=== PATIENT | male | born 1985 | race Caucasian/White ===

== ENCOUNTER 2018-05-15 14:06 | Outpatient (REF) | payer MEDICAID, SELFPAY ==
[2018-05-15 21:44] LABS: Anion Gap 9.1 mmol/L (3-11); BUN 16 mg/dL (7-18); CO2 26.9 mmol/L (21.0-32.0); Calcium 9.2 mg/dL (8.5-10.1); Chloride 103 mmol/L (98-107); Cholesterol 176 mg/dL (50-200); Glucose 99 mg/dL (70-100); HDL Cholesterol 42 mg/dL (40-60); LDL CHOLESTEROL 121 mg/dL (<100); Potassium 4.5 mmol/L (3.5-5.1); Sodium 139 mmol/L (136-145); Triglyceride 75 mg/dL (30-150)
== END 2018-05-15 14:26 ==
LOC: NCHCN 14:06
PROVIDERS: PCP Specialist/Technologist Athletic Trainer; Visit Provider Specialist/Technologist Athletic Trainer
DX: I10 Essential (primary) hypertension (principal); E66.01 Morbid (severe) obesity due to excess calories; Z00.00 Encounter for general adult medical examination without abnormal findings
CPT/HCPCS: 80048; 80061; 83721

== ENCOUNTER 2018-12-12 14:02 | Outpatient (REF) | payer MEDICAID, SELFPAY | END 2018-12-12 14:22 | LOC: NCHCN 14:02 | PROVIDERS: PCP Specialist/Technologist Athletic Trainer; Visit Provider Specialist/Technologist Athletic Trainer | DX: E66.01 Morbid (severe) obesity due to excess calories (principal) | CPT/HCPCS: 84443 ==

== ENCOUNTER 2020-01-29 10:04 | Outpatient (CLI) | payer MEDICAID, SELFPAY ==
[2020-01-31 08:00] LABS: COVID-19 RT-PCR Result NEGATIVE (Negative)
== END 2020-01-29 10:24 ==
PROVIDERS: PCP Specialist/Technologist Athletic Trainer; Visit Provider Surgery
DX: Z11.59 Encounter for screening for other viral diseases (principal)
CPT/HCPCS: U0003

== ENCOUNTER 2020-04-22 20:56 | Outpatient (REF) | payer MEDICAID, SELFPAY ==
[2020-04-22 21:17] LABS: HCT 40.3 % (40.0-50.0); HGB 13.2 g/dL (13.5-17.5); MCH 27.8 pg (27.0-33.0); MCHC 32.8 % (32.0-36.0); MPV 10.8 fL (8.0-11.0); Platelet Count 186 10^3/uL (130-400); RBC 4.74 10^6/uL (4.36-5.78); RDW 13.6 % (11.8-14.1); RDW-SD 41.6 fL; WBC 8.09 10^3/uL (4.4-10.8)
[2020-04-22 21:52] LABS: Iron 85 ug/dL (65-175)
[2020-04-22 22:02] LABS: Hemoglobin A1C 5.6 % (<5.7)
[2020-04-22 22:41] LABS: ALT 73 U/L (16-63); AST 40 U/L (15-37); Albumin 3.6 g/dL (3.4-5.0); Alkaline Phosphatase 85 U/L (46-116); Bilirubin, Total 0.4 mg/dL (0.2-1.0); CREATININE 0.69 mg/dL (0.70-1.30); Ferritin 308 ng/mL (26-388); Folate 11.6 ng/mL (8.6-20.0); Vitamin B12 310 pg/mL (193-986)
[2020-04-22 22:56] LABS: Bilirubin, Direct 0.11 mg/dL (0.00-0.20)
== END 2020-04-22 21:16 ==
LOC: NCHCN 20:56
PROVIDERS: PCP Specialist/Technologist Athletic Trainer; Visit Provider Nurse Practitioner Family
DX: E66.01 Morbid (severe) obesity due to excess calories (principal)
CPT/HCPCS: 80076; 82306; 85027; 82565; 82607; 82728; 82746; 83036; 83540; 84443

== ENCOUNTER 2020-08-04 10:34 | Emergency (ER) | payer MEDICAID, SELFPAY ==
[2020-08-04] VITALS (34 sets, daily range): BP systolic 129–142; BP diastolic 62–94; PULSE 80–112; RESP 12–28; TEMP 36.7–37.2; O2SAT 92–99
--- NOTE | 2020-08-04 10:30 | RT.EKG_ITS ---
APPROVED REPORT Exam: Resting ECG Patient Location: E HR:112 bpm ECG Measurements Heart Rate 112 AXIS GA 199 P 71 QRSd 101 QRS -9 QT 329 T 32 QTc 449 Conclusion Sinus tachycardia...rate> 99 Borderline prolonged GA interval...GA >197, V-rate 91-120
--- NOTE | 2020-08-04 10:45 | DI.RAD_ITS ---
EXAM: XR PORTABLE CHEST AP CLINICAL HISTORY: chest pain. TECHNIQUE: 2D digital imaging was performed. COMPARISON: CR ABD FLAT UPRIGHT PA CHEST from 01/07/2010 FINDINGS: Heart size is normal. The mediastinum is not widened. Lungs are clear. No infiltrates nor obvious pleural effusions. IMPRESSION: No acute pulmonary findings on this single AP portable view of the chest. DATA REPOSITORY: RADIATION DOSE DELIVERED:
--- NOTE | 2020-08-04 10:54 | ED.GENADUL_ITS ---
Discharge Plan Disposition Patient Disposition: HOME Condition: Stable Discharge Details Clinical Impression: Abdominal pain, Hepatic steatosis, Vomiting, Chest pain Primary Care Provider: Radha Wayne ED Provider: Angelina Donnelly Home Meds and New Rx's Prescriptions: Continued lorazepam 0.5 MG tablet 0.5 mg PO DAILY PRNRF: 0 venlafaxine 75 mg capsule,extended release 24hr See Rx Instructions .ROUTE .COMPLEX RF: 0 venlafaxine 150 mg capsule,extended release 24hr See Rx Instructions .ROUTE .COMPLEX RF: 0 hydroxyzine HCl 50 mg tablet 50 mg PO BID RF: 0 buspirone 10 mg tablet 5 mg PO BID RF: 0 ibuprofen 200 mg Tablet 400 mg PO TID RF: 0 cholecalciferol (vitamin D3) [Vitamin D3] 10 mcg (400 unit) tablet See Rx Instructions .ROUTE .COMPLEX RF: 0 cholecalciferol (vitamin D3) 1,250 mcg (50,000 unit) capsule See Rx Instructions .ROUTE .COMPLEX RF: 0 Discharge Instructions Instructions: Chest Pain (ED), Acute Nausea and Vomiting (ED), Acute Diarrhea (ED), Abdominal Pain (ED) Additional Instructions: Please return immediately to the emergency department if you develop any new or worsening symptoms, if your condition does not improve as expected, or if you become otherwise concerned. It is extremely important that you call soon as possible to make an appointment to be seen in follow-up for this visit by your primary care doctor. Referrals: Radha Wayne [Primary Care Provider] - Discharge Data Discharge Date/Time-TO BE ENTERED AT DEPARTURE: 08/04/20 15:24 Medical Decision Making René Wayne is a 34-year-old man with a history of anxiety who presented to the emergency department with 2 to 3 days of nausea and diarrhea and then with vomiting this morning followed by abdominal cramping and chest pain. On exam patient is well and nontoxic-appearing. There is mild tenderness palpation of the left upper chest in the area of pain without overlying skin changes/crepitus/deformity, tenderness palpation of the left upper quadrant without other abdominal tendernes and without peritoneal signs. Concern for gastroenteritis, pancreatitis, other. Doubt acute coronary syndrome, pulmonary embolism. Exam/history not consistent with mesenteric ischemia, acute aortic pathology, acute emergent testicular pathology, sepsis. EKG shows sinus tachycardia, nondiagnostic. Plan for chest x-ray, screening labs, IV Ativan, IV fluid hydration, telemetry, CT abd/pelv. If initial troponin negative, will repeat EKG, trop. Patient reports feeling significantly improved after Ativan. Chest x-ray negative. Initial troponin negative. Plan for 3-hour repeat. CT abdomen/pelvis shows hepatic steatosis, no acute process per radiology. Repeat EKG is negative, repeat troponin is negative. No vomiting or diarrhea in the emergency department. Patient reports that he feels significantly improved, has had mild abdominal cramping with passing gas but otherwise feels at baseline. Patient is low risk by HEART score. Plan for outpatient follow-up. I had a lengthy discussion with Patient regarding return to emergency department precautions, home care, and importance of outpatient follow-up. Pt verbalizes understanding of the plan and is amenable. Patient discharged to home with clear plan for outpatient follow-up. All questions were answered. Disposition decision was made weighing the risks and benefits of hospitalization versus outpatient treatment, the risk for further decompensation, and the patient's wishes. Medical Records Medical records reviewed: Yes I reviewed the patient's medical records. Imaging Data Radiologic Study: Attestation: I personally reviewed and interpreted this imaging study as follows: Radiologist's impression: EXAM: XR PORTABLE CHEST AP CLINICAL HISTORY: chest pain. TECHNIQUE: 2D digital imaging was performed. COMPARISON: CR ABD FLAT UPRIGHT PA CHEST from 01/07/2010 FINDINGS: Heart size is normal. The mediastinum is not widened. Lungs are clear. No infiltrates nor obvious pleural effusions. IMPRESSION: No acute pulmonary findings on this single AP portable view of the chest. EXAM: CT ABDOMEN PELVIS W CLINICAL HISTORY: abd pain. TECHNIQUE: Imaging Protocol: Axial computed tomography images with coronal and sagittal reformatted images were created and reviewed CONTRAST MATERIAL: Intravenous: Omnipaque 100cc Oral: None COMPARISON: No exams were available for comparison FINDINGS: VISUALIZED LUNG BASES: No nodules nor pleural effusions evident. ABDOMEN: There is no ascites. LIVER: The liver is quite hypodense implying significant steatosis. There are no discrete focal hepatic lesions evident. GALLBLADDER/BILIARY: The gallbladder surgically absent. The biliary tree is not dilated. CBD is not dilated. PANCREAS: No evidence of pancreatic mass nor dilatation of the pancreatic duct. SPLEEN: Spleen is not enlarged. No obvious intrasplenic lesions. Splenic and portal veins are patent. ADRENALS: There are no significant adrenal masses. KIDNEYS:Both kidneys exhibit normal size. It is difficult here to determine nonobstructive intrarenal calculi from some contrast in the calices on this noninfused study. There is a benign appearing exophytic cyst off the anterior cortex of the left kidney measuring 1.7 x 1.6 cm. No solid renal masses evident. No hydronephrosis.. ABDOMINAL AORTA: Abdominal aorta is not enlarged and there is no yntakrcmfakolkd-ltad-rzhkjz adenopathy. ABDOMINAL WALL/GI: There is an anterior abdominal wall midline umbilical hernia which contains fat but no bowel loops. No bowel obstruction. There is mild uniform haziness of the central mesentery, not associated with ascites nor obvious mesenteric lymphadenopathy. PELVIS: GI: No evidence of appendicitis.No obvious sigmoid diverticular disease. LYMPH NODES: There is no intrapelvic nor inguinal adenopathy. REPRODUCTIVE: Prostate not enlarged URINARY BLADDER: No calculi nor obvious masses evident OSSEOUS: No significant osseous lesions. IMPRESSION: 1. Hepatic steatosis. Correlation with hepatic blood work recommended. There are no focal hepatic lesions. Liver size is upper normal. There is no splenomegaly. 2. Solitary 1.7 centimeter benign cyst in the left kidney. No solid renal masses. 3. Possible small nonobstructive calculi in the kidneys versus just some contrast in the calices evident on this noninfused study. No hydronephrosis nor hydroureter and there are no calculi ureterovesical junctions nor within the urinary bladder. 4. Small umbilical fat containing hernia. Does not contain bowel loops and there is no bowel obstruction. 5. Mild streaking in the mesentery which is symmetrical and may be related to girth attenuation more so than actual mesenteritis. There are no enlarged lymph nodes evident within the mesentery. No ascites nor pleural effusions. Lab Data Lab results reviewed: Yes I reviewed the patient's lab results. Labs: Laboratory Tests Range/Units 08/04/20 08/04/20 08/04/20 10:58 10:58 10:58 WBC (4.4-10.8) 10^3/uL 9.34 RBC (4.36-5.78) 10^6/uL 4.93 Hgb (13.5-17.5) g/dL 13.6 Hct (40.0-50.0) % 41.4 MCV (80-95) fL 84.0 MCH (27.0-33.0) pg 27.6 MCHC (32.0-36.0) % 32.9 RDW (11.8-14.1) % 14.3 H Plt Count (130-400) 10^3/uL 309 MPV (8.0-11.0) fL 8.4 Immature Gran % 0.6 Neutrophils % 72.8 Lymphocytes % 17.9 Monocytes % 7.0 Eosinophils % 1.2 Basophils % 0.5 Nucleated RBC % % 0 Absolute Neutrophils (1.2-6.7) 10^3/uL 6.80 H Absolute Lymphocytes (1.2-3.4) 10^3/uL 1.67 Absolute Monocytes (0.1-0.8) 10^3/uL 0.65 Absolute Eosinophils (0.0-0.7) 10^3/uL 0.11 Absolute Basophils (0.0-0.2) 10^3/uL 0.05 D-Dimer (<500) ng/mlFEU 355 Sodium (136-145) mmol/L 137 Potassium (3.5-5.1) mmol/L 3.9 Chloride (98-107) mmol/L 103 Carbon Dioxide (21.0-32.0) mmol/L 25.1 Anion Gap (3-11) mmol/L 8.9 BUN (7-18) mg/dL 17 Creatinine (0.70-1.30) mg/dL 1.00 Estimated GFR/1.73 m2 (mL/min/1.73m2) >= 60.00 Glucose (74-106) mg/dL 128 H Calcium (8.5-10.1) mg/dL 8.6 Magnesium (1.8-2.4) mg/dL 1.9 Total Bilirubin (0.2-1.0) mg/dL 0.3 AST (15-37) U/L 27 ALT (16-63) U/L 68 H Alkaline Phosphatase (46-116) U/L 83 Troponin I (<0.06) ng/mL < 0.05 NT-Pro-B Natriuret Pep (<300) pg/mL 24 Total Protein (6.4-8.2) g/dL 7.7 Albumin (3.4-5.0) g/dL 3.6 Lipase (73-393) U/L Range/Units 08/04/20 08/04/20 10:58 14:01 WBC (4.4-10.8) 10^3/uL RBC (4.36-5.78) 10^6/uL Hgb (13.5-17.5) g/dL Hct (40.0-50.0) % MCV (80-95) fL MCH (27.0-33.0) pg MCHC (32.0-36.0) % RDW (11.8-14.1) % Plt Count (130-400) 10^3/uL MPV (8.0-11.0) fL Immature Gran % Neutrophils % Lymphocytes % Monocytes % Eosinophils % Basophils % Nucleated RBC % % Absolute Neutrophils (1.2-6.7) 10^3/uL Absolute Lymphocytes (1.2-3.4) 10^3/uL Absolute Monocytes (0.1-0.8) 10^3/uL Absolute Eosinophils (0.0-0.7) 10^3/uL Absolute Basophils (0.0-0.2) 10^3/uL D-Dimer (<500) ng/mlFEU Sodium (136-145) mmol/L Potassium (3.5-5.1) mmol/L Chloride (98-107) mmol/L Carbon Dioxide (21.0-32.0) mmol/L Anion Gap (3-11) mmol/L BUN (7-18) mg/dL Creatinine (0.70-1.30) mg/dL Estimated GFR/1.73 m2 (mL/min/1.73m2) Glucose (74-106) mg/dL Calcium (8.5-10.1) mg/dL Magnesium (1.8-2.4) mg/dL Total Bilirubin (0.2-1.0) mg/dL AST (15-37) U/L ALT (16-63) U/L Alkaline Phosphatase (46-116) U/L Troponin I (<0.06) ng/mL < 0.05 NT-Pro-B Natriuret Pep (<300) pg/mL Total Protein (6.4-8.2) g/dL Albumin (3.4-5.0) g/dL Lipase (73-393) U/L 71 ECG Data Attestation: I personally reviewed and interpreted this ECG (s) as follows: Interpretation: EKG shows sinus tachycardia at 112, normal axis, no STEMI, nondiagnostic EKG Repeat EKG 14:10 shows sinus rhythm at 93, normal axis, no major change from prior, nondiagnostic EKG HPI General Mode of arrival: ambulatory . Date/Time Provider Initiated Documentation: 08/04/20 10:36 . Limitations to Documentation: no limitations . Information obtained by: patient, RN notes reviewed and old records reviewed . HPI Narrative: René Wayne is a 34-year-old man with history of anxiety presenting to emergency department with chest pain and abdominal pain. Patient reports that over the past few days he has had diarrhea and nausea. Patient reports that this morning he woke up with cold sweats and had several episodes of vomiting with abdominal cramping. Patient reports that after vomiting he developed pain in his chest and left arm. He is now reporting pain in his left chest and clavicle area with left upper quadrant. Patient reports that his worst pain is in the left upper quadrant. He denies any other pain. He denies fevers, constipation, numbness, localized weakness, shortness of breath, cough. Patient reports that up until today he has been eating and drinking as usual with normal appetite. He did not eat this morning secondary to nausea. He denies recreational drug use, tobacco/nicotine use. Reports rare alcohol use with none recently. Patient reports that he has significant history of anxiety quite anxious right now due to all of his symptoms. He states that he took lorazepam at home which has not helped with his anxiety. Related Data Home Medications Medication Instructions Recorded Confirmed lorazepam 0.5 mg PO DAILY PRN 01/06/16 08/04/20 buspirone 5 mg PO BID 08/04/20 08/04/20 cholecalciferol (vitamin D3) See Rx Instructions .ROUTE .COMPLEX 08/04/20 08/04/20 cholecalciferol (vitamin D3) See Rx Instructions .ROUTE .COMPLEX 08/04/20 08/04/20 [Vitamin D3] hydroxyzine HCl 50 mg PO BID 08/04/20 08/04/20 ibuprofen 400 mg PO TID 08/04/20 08/04/20 venlafaxine See Rx Instructions .ROUTE .COMPLEX 08/04/20 08/04/20 venlafaxine See Rx Instructions .ROUTE .COMPLEX 08/04/20 08/04/20 Allergies Allergy/AdvReac Type Severity Reaction Status Date / Time trazodone AdvReac Intermediate Agitation Unverified 08/04/20 10:41 General Stated Complaint: Chest Pain MARY: 2 Review of Systems Narrative: Constitutional: denies fevers Eyes: denies eye pain ENT: denies ear pain, dental pain, sore throat Cardiovascular: denies chest edema, reports chest pain Respiratory: denies SOB, cough GI: Reports abdominal pain, vomiting, diarrhea, denies constipation, melena, hematochezia, bloody/bilious emesis : denies flank pain MSK: denies back pain, neck pain, arthralgias, myalgias Skin: denies rash Neuro: denies headaches, numbness, weakness PFSH Social History Smoking/Tobacco Use Status: Never Smoking risk assessment performed?: Yes Alcohol Intake: current Alcohol Intake frequency: a few times a month Drug use: Never Substance use type: does not use Do you feel safe at home: Yes Do you feel safe in your relationship?: Yes Exam Narrative Exam Narrative: Constitutional: well and jut-cfdca-tmalemnar, pleasant, conversing normally HENT: head atraumatic/normocephalic/normal inspection, mucous membranes moist Eyes: conjunctiva normal, sclera normal, pupils 3mm b/l Neck: no stridor, normal ROM, trachea midline Chest: normal inspection, mild diffuse tenderness to palpation left upper chest/shoulder without bony point tenderness/crepitus/deformity Resp: normal work of breathing, LCTAB Cardio: normal rate, normal rhythm, no murmur appreciated GI: abdomen soft, mild tenderness palpation left upper quadrant, no other abdominal tenderness palpation, no rebound, no guarding, non-distended Back: normal inspection, no rash Skin: warm, dry, normal color, no rash Neuro: alert, not altered, grossly non-focal, normal tone Ext: no edema, no posterior calf tenderness to palpation Psych: normal mood, normal affect, normal behavior Course Vital Signs Vital signs: Vital Signs Temperature 36.7 C 08/04/20 10:37 Pulse 105 H 08/04/20 10:37 Respiratory Rate 28 H 08/04/20 10:37 Blood Pressure 136/72 08/04/20 10:37 Pulse Oximetry 97 08/04/20 10:37 Temperature 36.7 C 08/04/20 10:37 Temperature Source Skin 08/04/20 10:37 Pulse 103 H 08/04/20 10:44 Pulse 109 H 08/04/20 10:44 Respiratory Rate 21 08/04/20 10:44 Respiratory Effort Labored 08/04/20 10:44 Respiratory Depth Normal 08/04/20 10:44 Respiratory Pattern Normal 08/04/20 10:44 Blood Pressure 136/72 08/04/20 10:44 Blood Pressure Mean 88 08/04/20 10:44 Blood Pressure Position Supine 08/04/20 10:37 Pulse Oximetry 98 08/04/20 10:44 Oxygen Delivery Method Room Air 08/04/20 10:37 Oxygen Flow Rate 0 08/04/20 10:37 Pain Level 5 08/04/20 10:44
[2020-08-04 11:11] LABS: Abs Immature Grans 0.06 10^3/uL (0.0-0.06); Absolute Basophil Count 0.05 10^3/uL (0.0-0.2); Absolute Eosinophil Count 0.11 10^3/uL (0.0-0.7); Absolute Lymphocyte Count 1.67 10^3/uL (1.2-3.4); Absolute Monocyte Count 0.65 10^3/uL (0.1-0.8); Basophils % 0.5; Eosinophils % 1.2; HCT 41.4 % (40.0-50.0); HGB 13.6 g/dL (13.5-17.5); Immature Grans % 0.6; Lymphocytes % 17.9; MCH 27.6 pg (27.0-33.0); MCHC 32.9 % (32.0-36.0); MPV 8.4 fL (8.0-11.0); Neutrophils % 72.8; Nucleated RBC 0 %; Platelet Count 309 10^3/uL (130-400); RBC 4.93 10^6/uL (4.36-5.78); RDW 14.3 % (11.8-14.1); RDW-SD 43.5 fL; WBC 9.34 10^3/uL (4.4-10.8)
[2020-08-04] MEDS: LORazepam 2 MG/ML VIAL 1 MG IVP (11:23)
[2020-08-04 11:29] LABS: ALT 68 U/L (16-63); AST 27 U/L (15-37); Albumin 3.6 g/dL (3.4-5.0); Alkaline Phosphatase 83 U/L (46-116); Anion Gap 8.9 mmol/L (3-11); BUN 17 mg/dL (7-18); Bilirubin, Total 0.3 mg/dL (0.2-1.0); CO2 25.1 mmol/L (21.0-32.0); Calcium 8.6 mg/dL (8.5-10.1); Chloride 103 mmol/L (98-107); Glucose 128 mg/dL (74-106); Magnesium 1.9 mg/dL (1.8-2.4); NT-proBNP 24 pg/mL (<300); Potassium 3.9 mmol/L (3.5-5.1); Sodium 137 mmol/L (136-145); Total Protein 7.7 g/dL (6.4-8.2); Troponin I < 0.05 ng/mL (<0.06)
[2020-08-04 11:48] LABS: D-Dimer 355 ng/mlFEU (<500)
--- NOTE | 2020-08-04 13:50 | DI.CT_ITS ---
EXAM: CT ABDOMEN PELVIS W CLINICAL HISTORY: abd pain. TECHNIQUE: Imaging Protocol: Axial computed tomography images with coronal and sagittal reformatted images were created and reviewed CONTRAST MATERIAL: Intravenous: Omnipaque 100cc Oral: None COMPARISON: No exams were available for comparison FINDINGS: VISUALIZED LUNG BASES: No nodules nor pleural effusions evident. ABDOMEN: There is no ascites. LIVER: The liver is quite hypodense implying significant steatosis. There are no discrete focal hepa tic lesions evident. GALLBLADDER/BILIARY: The gallbladder surgically absent. The biliary tree is not dilated. CBD is not dilated. PANCREAS: No evidence of pancreatic mass nor dilatation of the pancreatic duct. SPLEEN: Spleen is not enlarged. No obvious intrasplenic lesions. Splenic and portal veins are paten t. ADRENALS: There are no significant adrenal masses. KIDNEYS:Both kidneys exhibit normal size. It is difficult here to determine nonobstructive intrarena l calculi from some contrast in the calices on this noninfused study. There is a benign appearing ex ophytic cyst off the anterior cortex of the left kidney measuring 1.7 x 1.6 cm. No solid renal maria fernanda s evident. No hydronephrosis.. ABDOMINAL AORTA: Abdominal aorta is not enlarged and there is no ukplkbywseiyxpq-ssjf-hwcjfx adenopat hy. ABDOMINAL WALL/GI: There is an anterior abdominal wall midline umbilical hernia which contains fat bu t no bowel loops. No bowel obstruction. There is mild uniform haziness of the central mesentery, not associated with ascites nor obvious mese nteric lymphadenopathy. PELVIS: GI: No evidence of appendicitis.No obvious sigmoid diverticular disease. LYMPH NODES: There is no intrapelvic nor inguinal adenopathy. REPRODUCTIVE: Prostate not enlarged URINARY BLADDER: No calculi nor obvious masses evident OSSEOUS: No significant osseous lesions. IMPRESSION: 1. Hepatic steatosis. Correlation with hepatic blood work recommended. There are no focal hepatic l esions. Liver size is upper normal. There is no splenomegaly. 2. Solitary 1.7 centimeter benign cyst in the left kidney. No solid renal masses. 3. Possible small nonobstructive calculi in the kidneys versus just some contrast in the calices evid ent on this noninfused study. No hydronephrosis nor hydroureter and there are no calculi ureterovesi zeny junctions nor within the urinary bladder. 4. Small umbilical fat containing hernia. Does not contain bowel loops and there is no bowel obstruc tion. 5. Mild streaking in the mesentery which is symmetrical and may be related to girth attenuation more so than actual mesenteritis. There are no enlarged lymph nodes evident within the mesentery. No ascites nor pleural effusions. RADIATION DOSE DELIVERED: 2,313.83mGy.cm Total DLP DATA REPOSITORY: All CT scans at this facility are submitted to the National Radiology Data Registry (NRDR) Dose Index Registry (DIR) with the [employer] ([employer]). RADIATION OPTIMIZATION: All CT scans at this facility use at least one of these dose optimization te chniques: automated exposure control; mA and/or kV adjustment per patient size (includes targeted exa ms where dose is matched to clinical indication); or iterative reconstruction.
[2020-08-04 14:00] LABS: Lipase 71 U/L (73-393)
--- NOTE | 2020-08-04 14:00 | RT.EKG_ITS ---
APPROVED REPORT Exam: Resting ECG Patient Location: E HR:93 bpm ECG Measurements Heart Rate 93 AXIS AR 182 P 24 QRSd 103 QRS 2 QT 365 T 31 QTc 453 Conclusion Sinus rhythm...normal P axis, V-rate 60- 99 Low voltage, precordial leads...precordial leads <1.0mV sinus rhythm at 93, normal axis, no major change from prior, nondiagnostic EKG
[2020-08-04] MEDS: Omnipaque 350 MG/ML 100 ML BTL IJ (14:06)
[2020-08-04] MEDS: Normal Saline - Diluent 50 ML VIAL IV (14:07)
[2020-08-04 14:28] LABS: Troponin I < 0.05 ng/mL (<0.06)
== END 2020-08-04 15:24 | disposition home or self-care (01) ==
PROVIDERS: Emergency Provider Student in an Organized Health Care Education/Training Program; PCP Nurse Practitioner Family
DX: K76.0 Fatty (change of) liver, not elsewhere classified (principal); R11.2 Nausea with vomiting, unspecified; F41.9 Anxiety disorder, unspecified
CPT/HCPCS: 36415; 80053; 83690; 93005; 96374; 99285; 71045; 74177; 83735; 83880; 84484; 85025; 85379; 93010; 99284; J2060; J3490

== ENCOUNTER 2020-08-12 18:57 | Outpatient (REF) | payer MEDICAID, SELFPAY ==
[2020-08-13 14:19] LABS: COVID-19 RT-PCR UVMMC Result Negative (Negative)
== END 2020-08-12 18:58 | disposition home or self-care (01) ==
LOC: NCHCN ADD 18:57
PROVIDERS: PCP Nurse Practitioner Family; Visit Provider Nurse Practitioner Family
DX: Z20.822 Contact with and (suspected) exposure to COVID-19
CPT/HCPCS: U0003

== ENCOUNTER 2020-08-12 20:27 | Outpatient (REF) | payer MEDICAID, SELFPAY ==
[2020-08-14 04:38] LABS: Vitamin D 25 Total 18.4 ng/ml (30-100)
[2020-08-14 10:27] LABS: Hepatitis A Antibody IgM Negative (Negative); Hepatitis B Core Antibody Negative (Negative); Hepatitis B surface Ag Negative (Negative); Hepatitis C Ab w Rflx HCV PCR Negative (Negative)
== END 2020-08-12 20:28 | disposition home or self-care (01) ==
LOC: NCHCN 20:27
PROVIDERS: PCP Nurse Practitioner Family; Visit Provider Nurse Practitioner Family
DX: E55.9 Vitamin D deficiency, unspecified (principal); R10.9 Unspecified abdominal pain; K76.0 Fatty (change of) liver, not elsewhere classified; I10 Essential (primary) hypertension
CPT/HCPCS: 82306; 86704; 86709; 86803; 87340

== ENCOUNTER 2020-10-29 11:01 | Emergency (ER) | payer MEDICAID, SELFPAY ==
[2020-10-29] VITALS (38 sets, daily range): BP systolic 112–165; BP diastolic 63–109; PULSE 64–103; RESP 9–22; TEMP 36.2–36.6; O2SAT 97–100
--- NOTE | 2020-10-29 11:00 | RT.EKG_ITS ---
APPROVED REPORT Exam: Resting ECG Patient Location: E HR:86 bpm ECG Measurements Heart Rate 86 AXIS [place] 181 P 52 QRSd 103 QRS 32 QT 374 T 37 QTc 448 Conclusion Sinus rhythm...normal P axis, V-rate 60- 99 Low voltage, precordial leads...precordial leads <1.0mV I have reviewed and interpreted ECG and agree with software generated interpretation.
--- NOTE | 2020-10-29 11:15 | DI.RAD_ITS ---
EXAM: XR CHEST 2V PA LATERAL CLINICAL HISTORY: cp. TECHNIQUE: 2D digital imaging was performed. COMPARISON: CR XR PORTABLE CHEST AP from 08/04/2020 FINDINGS: Heart size is upper normal. The mediastinum is not widened. Lungs are clear. No infiltrates nor pleural effusions. IMPRESSION: No acute pulmonary findings.No significant change compared to 08/04/2020 DATA REPOSITORY: RADIATION DOSE DELIVERED:
--- NOTE | 2020-10-29 11:19 | ED.GENADUL_ITS ---
Discharge Plan Disposition Patient Disposition: HOME Condition: Stable Discharge Details Clinical Impression: Chest pain, Chill, Nausea & vomiting Primary Care Provider: Radha Wayne ED Provider: Tiffany Linda Home Meds and New Rx's Prescriptions: Continued lorazepam 0.5 MG tablet 0.5 mg PO DAILY PRNRF: 0 venlafaxine 75 mg capsule,extended release 24hr See Rx Instructions .ROUTE .COMPLEX RF: 0 venlafaxine 150 mg capsule,extended release 24hr See Rx Instructions .ROUTE .COMPLEX RF: 0 hydroxyzine HCl 50 mg tablet 50 mg PO BID RF: 0 buspirone 10 mg tablet 5 mg PO BID RF: 0 ibuprofen 200 mg Tablet 400 mg PO TID RF: 0 cholecalciferol (vitamin D3) [Vitamin D3] 10 mcg (400 unit) tablet See Rx Instructions .ROUTE .COMPLEX RF: 0 cholecalciferol (vitamin D3) 1,250 mcg (50,000 unit) capsule See Rx Instructions .ROUTE .COMPLEX RF: 0 propranolol 10 mg tablet 10 mg PO BID RF: 0 Discharge Instructions Instructions: Chest Pain (ED), Acute Nausea and Vomiting (ED), COVID-19: Slow the Coronavirus Spread (ED) Additional Instructions: Your labs and imaging are reassuring here today. However, I am concerned given your family history that you are at high risk for heart disease. I would like for you to have an outpatient stress test and have ordered this test. Your symptoms today are concerning for potential COVID-19 or other viral illness. Please encourage water intake. I recommend begin a baby aspirin once a day. Please quarantine until results are back. Please follow-up with your primary care next week for reevaluation. If you develop increased pain, shortness of breath, difficulty breathing, inability stay hydrated or other new/worsening symptoms please seek care urgently once again Referrals: Radha Wayne [Primary Care Provider] - Discharge Data Discharge Date/Time-TO BE ENTERED AT DEPARTURE: 10/29/20 16:33 Medical Decision Making Patient is a pleasant 35-year-old male presenting today with chief complaint of chest pain, anxiety, nausea. Reports that symptoms began last night. Patient is attributing this to having received a [employer] vaccine on the of this month. He reports that he had 2 days of mild side effects after the initial injection but then symptoms did resolve. He is not feeling short of breath. He denies any fevers. Endorses chills. States he vomited x1. Reports mild abdominal cramping. Has not had pain like this historically. He states pain is primarily along the left side of his chest. No known Covid contacts. Patient reports that he always wears a mask and has not had any social contacts. Works at [employer]. On exam, patient appears anxious but nontoxic. Normal cardiac exam. Lungs are clear. Abdomen benign. No lower extremity edema. Patient is morbidly obese. Patient blood pressure is elevated 155/109. No tachycardia. No hypoxia.. Past medical history pertinent for anxiety, depression, hypertension, obesity, panic attacks. Patient is prescribed Ativan, is not present today. I did offer him an oral dose that she has accepted. Plan to give aspirin. I am concerned for potential ACS. He reports that his father had a FL at the age of 32. Will obtain EKG and baseline labs. Patient not having pleuritic pain, shortness of breath. Of low suspicion for PE. Patient PERC negative. Pain does not radiate into the back. Was not sudden onset. Hx not consistent with pneumothorax, dissection. Exam is not suggest surgical abdomen. Also considered viral infection with the nausea, vomiting and chills. FINDINGS: Heart size is upper normal. The mediastinum is not widened. Lungs are clear. No infiltrates nor pleural effusions. IMPRESSION: No acute pulmonary findings.No significant change compared to 08/04/2020 Labs reviewed. No leukocytosis. Hemoglobin fairly low at 12.7. CMP without significant abnormality. Troponin within normal limits. Troponin within normal limits. plan for repeat Trope. Lipase normal. Reevaluated the patient. We discussed the findings. He is reporting feeling fluttering in his chest. Is also reporting that he has had some GI upset including increased gas and for the past few months. Patient has not having any dysrhythmias on exam and is having weakness with forward questioning at this point esophageal nature. Will give p.o. Mylanta and reassess. Patient is feeling improved. Repeat troponin remains less than 0.05. I discussed these findings with the patient. We discussed disposition. Plan to run outpatient COVID-19 testing based on the patient's symptoms. Encourage water intake. Advise follow-up with primary care in 1 week for reevaluation. I do feel that once his symptoms have improved this sound likely viral in nature, he should have cardiac stress testing based on his BMI and family history. Strict return precautions were discussed. All of his questions and concerns were addressed and he is in agreement with this plan. HPI General Mode of arrival: ambulatory . Date/Time Provider Initiated Documentation: 10/29/20 11:19 . Limitations to Documentation: no limitations . Information obtained by: patient and RN notes reviewed . History of Present Illness 35 year old M presents to the emergency department with the chief complaint of chest pain, nausea, shivering, fatigue, described as moderate, with intensity rated at 5. Quality is described as aching (generalized body aches), and is localized to the chest. Patient started experiencing this day(s) No relieving factors improve symptom(s), No exacerbating factors reported . Patient notes chest pain, fever/chills, loss of appetite and nausea/vomiting (vomited x 1); denies cough, rash, shortness of breath and weakness. Patient did receive the following treatments prior to arrival, none Related Data Home Medications Medication Instructions Recorded Confirmed lorazepam 0.5 mg PO DAILY PRN 01/06/16 10/29/20 buspirone 5 mg PO BID 08/04/20 10/29/20 cholecalciferol (vitamin D3) See Rx Instructions .ROUTE .COMPLEX 08/04/20 10/29/20 cholecalciferol (vitamin D3) See Rx Instructions .ROUTE .COMPLEX 08/04/20 10/29/20 [Vitamin D3] hydroxyzine HCl 50 mg PO BID 08/04/20 10/29/20 ibuprofen 400 mg PO TID 08/04/20 10/29/20 venlafaxine See Rx Instructions .ROUTE .COMPLEX 08/04/20 10/29/20 venlafaxine See Rx Instructions .ROUTE .COMPLEX 08/04/20 10/29/20 propranolol 10 mg PO BID 10/29/20 10/29/20 Allergies Allergy/AdvReac Type Severity Reaction Status Date / Time trazodone AdvReac Intermediate Agitation Unverified 10/29/20 11:10 General Stated Complaint: GenMedical MARY: 3 Review of Systems Constitutional Constitutional: Reports as per HPI, Reports chills, Denies fever(s), Denies headache(s) and Reports lethargy Eyes Eyes: Denies change in vision ENT Ears, Nose, Mouth, and Throat: Denies dizziness and Denies headache(s) Cardiovascular Cardiovascular: Reports as per HPI, Denies dyspnea and Denies dyspnea on exertion Respiratory Respiratory: Reports as per HPI, Denies chest congestion, Denies cough, Denies pain on inspiration, Denies pain with cough, Denies dyspnea, Denies dyspnea on exertion and Denies wheezing Gastrointestinal Gastrointestinal: Reports as per HPI, Denies abdominal pain, Denies diarrhea, Reports nausea and Reports vomiting Genitourinary Genitourinary: Denies system reviewed and no additional complaints, except as documented (denies change in urinary habits) Musculoskeletal Musculoskeletal: Reports as per HPI and Denies back pain Integumentary/Breasts Skin/Breast: Reports as per HPI and Denies rash Neurologic Neurologic: Reports as per HPI, Denies dizziness and Denies headache(s) Allergic/Immunologic Allergic/Immunologic: Denies wheezing [facility] Social History Smoking/Tobacco Use Status: Never Smoking risk assessment performed?: Yes Alcohol Intake: current Alcohol Intake frequency: a few times a month Drug use: Never Substance use type: does not use Do you feel safe at home: Yes Do you feel safe in your relationship?: Yes Exam Const General: cooperative, healthy appearing, comfortable, no acute distress and well developed Nutritional Appearance: well nourished and obese Orientation: alert, awake and oriented x3 HENMT Head: normal to inspection Ears: hearing grossly normal bilaterally Mouth: moist mucous membranes Resp Effort & Inspection: normal respiratory effort, able to speak in complete sentences and no respiratory distress Auscultation: clear to auscultation bilaterally, no rales, no rhonchi and no wheezes Cardio Rate: regular rate Rhythm: regular rhythm Heart Sounds: S1 normal and S2 normal GI Inspection: normal to inspection, no edema and non-distended Palpation: soft, no hepatosplenomegaly, not firm, no guarding, not rigid and nontender Auscultation: normal bowel sounds Skin General skin exam: no rashes or lesions noted Trauma: no lacerations or abrasions Neuro General: patient alert, patient awake and patient oriented x3 Cognition: normal cognition Speech: speech normal Gait: normal gait Extrem General: normal to inspection, capillary refill normal, no pedal edema, no calf tenderness and normal gait Psych Appearance: grossly normal and well kempt Mental Status: mental status grossly normal Speech and Movement: speech and movement normal Course Vital Signs Vital signs: Vital Signs Temperature 36.2 C L 10/29/20 11:03 Pulse 89 10/29/20 11:03 Respiratory Rate 20 10/29/20 11:03 Blood Pressure 165/109 H 10/29/20 11:03 Pulse Oximetry 97 10/29/20 11:03 Temperature 36.2 C L 10/29/20 11:03 Temperature Source Skin 10/29/20 11:03 Pulse 89 10/29/20 11:03 Respiratory Rate 20 10/29/20 11:03 Respiratory Effort 10/29/20 11:16 Blood Pressure 165/109 H 10/29/20 11:03 Blood Pressure Position Sitting 10/29/20 11:03 Pulse Oximetry 97 10/29/20 11:03 Oxygen Delivery Method Room Air 10/29/20 11:03 Oxygen Flow Rate 0 10/29/20 11:03 Pain Level 5 10/29/20 11:03 Comment 10/29/20 11:03
[2020-10-29 12:02] LABS: Abs Immature Grans 0.05 10^3/uL (0.0-0.06); Absolute Basophil Count 0.03 10^3/uL (0.0-0.2); Absolute Eosinophil Count 0.17 10^3/uL (0.0-0.7); Absolute Monocyte Count 0.45 10^3/uL (0.1-0.8); Absolute Neutrophil Count 5.33 10^3/uL (1.2-6.7); Basophils % 0.4; Eosinophils % 2.2; HCT 39.2 % (40.0-50.0); HGB 12.7 g/dL (13.5-17.5); Immature Grans % 0.7; MCH 27.5 pg (27.0-33.0); MCHC 32.4 % (32.0-36.0); MCV 84.8 fL (80-95); MPV 8.5 fL (8.0-11.0); Monocytes % 5.9; Neutrophils % 69.8; Nucleated RBC 0 %; Platelet Count 266 10^3/uL (130-400); RBC 4.62 10^6/uL (4.36-5.78); RDW 14.3 % (11.8-14.1); RDW-SD 43.8 fL; WBC 7.63 10^3/uL (4.4-10.8)
[2020-10-29] MEDS: Aspirin 81 MG CHEW 324 MG CH (12:04)
[2020-10-29] MEDS: LORazepam 0.5 MG TAB PO (12:05)
[2020-10-29] MEDS: Normal Saline Flush 10 ML SYR IVP (12:06)
[2020-10-29 12:19] LABS: ALT 60 U/L (16-63); AST 24 U/L (15-37); Albumin 3.3 g/dL (3.4-5.0); Alkaline Phosphatase 75 U/L (46-116); BUN 16 mg/dL (7-18); Bilirubin, Total 0.3 mg/dL (0.2-1.0); CREATININE 0.9 mg/dL (0.70-1.30); Calcium 9.1 mg/dL (8.5-10.1); Chloride 105 mmol/L (98-107); Glucose 118 mg/dL (74-106); Lipase 51 U/L (73-393); Magnesium 1.8 mg/dL (1.8-2.4); Sodium 142 mmol/L (136-145); Total Protein 7.2 g/dL (6.4-8.2)
[2020-10-29 12:23] LABS: Troponin I < 0.05 ng/mL (<0.06)
[2020-10-29 12:33] LABS: PTT Activated 23.4 sec (21.0-27.5); Prothrombin Time 9.8 sec (9.3-11.0)
[2020-10-29] MEDS: Mylanta Suspension 30 ML CUP PO (13:41)
--- NOTE | 2020-10-29 14:45 | RT.EKG_ITS ---
APPROVED REPORT Exam: Resting ECG Patient Location: E HR:73 bpm ECG Measurements Heart Rate 73 AXIS MA 181 P 51 QRSd 108 QRS 25 QT 389 T 28 QTc 429 Conclusion Sinus rhythm...normal P axis, V-rate 60- 99 Low voltage, precordial leads...precordial leads <1.0mV I have reviewed and interpreted ECG and agree with software generated interpretation.
[2020-10-29 15:17] LABS: Troponin I < 0.05 ng/mL (<0.06)
[2020-10-30 17:03] LABS: COVID-19 RT-PCR UVMMC Result Negative (Negative)
--- NOTE | 2020-11-05 10:11 | NUR.NOTE ---
11/05/20 @ 1010 contacted patient and after verifying his identity, relayed negative covid test result to him.
== END 2020-10-29 16:33 | disposition home or self-care (01) ==
PROVIDERS: Emergency Provider Physician Assistant; PCP Nurse Practitioner Family
DX: R07.9 Chest pain, unspecified (principal); R11.2 Nausea with vomiting, unspecified; R68.83 Chills (without fever); Z20.822 Contact with and (suspected) exposure to COVID-19
CPT/HCPCS: 80053; 83690; 93005; 99284; U0003; 71046; 83735; 84484; 85025; 85610; 85730; 93010; 99283

== ENCOUNTER 2020-12-29 17:27 | Outpatient (REF) | payer MEDICAID, SELFPAY ==
[2020-12-29 22:01] LABS: Abs Immature Grans 0.05 10^3/uL (0.0-0.06); Absolute Basophil Count 0.05 10^3/uL (0.0-0.2); Absolute Eosinophil Count 0.11 10^3/uL (0.0-0.7); Absolute Lymphocyte Count 2.32 10^3/uL (1.2-3.4); Absolute Monocyte Count 0.58 10^3/uL (0.1-0.8); Basophils % 0.5; Eosinophils % 1.1; HCT 42.5 % (40.0-50.0); HGB 13.2 g/dL (13.5-17.5); Immature Grans % 0.5; Lymphocytes % 22.7; MCHC 31.1 % (32.0-36.0); MCV 86.9 fL (80-95); Monocytes % 5.7; Neutrophils % 69.5; Nucleated RBC 0 %; Platelet Count 377 10^3/uL (130-400); RBC 4.89 10^6/uL (4.36-5.78); RDW 14.3 % (11.8-14.1); WBC 10.21 10^3/uL (4.4-10.8)
[2020-12-29 22:56] LABS: Iron 50 ug/dL (65-175); Total Iron Binding Capacity 285 ug/dL (250-450); Transferrin Sat 18 % (20-55)
[2020-12-29 22:58] LABS: ALT 54 U/L (16-63); AST 25 U/L (15-37); Albumin 3.7 g/dL (3.4-5.0); Alkaline Phosphatase 99 U/L (46-116); Anion Gap 10.4 mmol/L (3-11); BUN 12 mg/dL (7-18); Bilirubin, Total 0.3 mg/dL (0.2-1.0); CO2 27.6 mmol/L (21.0-32.0); CREATININE 0.8 mg/dL (0.70-1.30); Calcium 9.5 mg/dL (8.5-10.1); Chloride 105 mmol/L (98-107); Glucose 125 mg/dL (74-106); Potassium 4.9 mmol/L (3.5-5.1); Sodium 143 mmol/L (136-145); TSH (W/Ref FT4) 1.39 uIU/mL (0.36-3.74); Total Protein 7.3 g/dL (6.4-8.2)
[2020-12-29 23:10] LABS: Vitamin D 25 Total 16.2 ng/mL (30-100)
== END 2020-12-29 17:28 | disposition home or self-care (01) ==
LOC: NCHCN 17:27
PROVIDERS: PCP Nurse Practitioner Family; Visit Provider Nurse Practitioner Family
DX: R53.83 Other fatigue (principal); I10 Essential (primary) hypertension; K76.0 Fatty (change of) liver, not elsewhere classified; E55.9 Vitamin D deficiency, unspecified; K30 Functional dyspepsia; F52.21 Male erectile disorder; M54.5 Low back pain; R82.998 Other abnormal findings in urine
CPT/HCPCS: 80053; 82306; 83540; 83550; 84443; 85025; 87086

== ENCOUNTER 2021-03-12 14:55 | Outpatient (REF) | payer MEDICAID, SELFPAY ==
[2021-03-13 17:16] LABS: COVID-19 RT-PCR UVMMC Result Negative (Negative)
== END 2021-03-12 14:56 | disposition home or self-care (01) ==
LOC: NCHCN 14:55
PROVIDERS: PCP Nurse Practitioner Family; Visit Provider Family Medicine
DX: Z20.822 Contact with and (suspected) exposure to COVID-19 (principal); J06.9 Acute upper respiratory infection, unspecified
CPT/HCPCS: U0003

== ENCOUNTER 2021-03-25 14:55 | Outpatient (REF) | payer MEDICAID, SELFPAY ==
[2021-03-27 14:31] LABS: COVID-19 RT-PCR UVMMC Result Positive (Negative)
== END 2021-03-25 14:56 | disposition home or self-care (01) ==
LOC: LBN 14:55
PROVIDERS: PCP Nurse Practitioner Family; Visit Provider Physician Assistant Medical
DX: Z20.822 Contact with and (suspected) exposure to COVID-19 (principal)
CPT/HCPCS: U0003

== ENCOUNTER 2021-04-07 12:54 | Outpatient (REF) | payer MEDICAID, SELFPAY ==
[2021-04-07 14:25] LABS: Abs Immature Grans 0.06 10^3/uL (0.0-0.06); Absolute Basophil Count 0.03 10^3/uL (0.0-0.2); Absolute Eosinophil Count 0.06 10^3/uL (0.0-0.7); Absolute Lymphocyte Count 1.57 10^3/uL (1.2-3.4); Absolute Monocyte Count 0.48 10^3/uL (0.1-0.8); Absolute Neutrophil Count 5.65 10^3/uL (1.2-6.7); Basophils % 0.4; Eosinophils % 0.8; HCT 39.6 % (40.0-50.0); HGB 12.7 g/dL (13.5-17.5); Immature Grans % 0.8; MCH 26.1 pg (27.0-33.0); MCHC 32.1 % (32.0-36.0); MCV 81.5 fL (80-95); MPV 9.2 fL (8.0-11.0); Monocytes % 6.1; Neutrophils % 71.9; Nucleated RBC 0 %; Platelet Count 335 10^3/uL (130-400); RBC 4.86 10^6/uL (4.36-5.78); RDW 14.6 % (11.8-14.1); RDW-SD 42.5 fL; WBC 7.85 10^3/uL (4.4-10.8)
[2021-04-07 14:30] LABS: Iron 62 ug/dL (65-175); Total Iron Binding Capacity 267 ug/dL (250-450); Transferrin Sat 23 % (20-55)
[2021-04-07 14:44] LABS: Ferritin 313 ng/mL (26-388)
== END 2021-04-07 12:55 | disposition home or self-care (01) ==
LOC: NCHCN 12:54
PROVIDERS: PCP Nurse Practitioner Family; Visit Provider Nurse Practitioner Family
DX: R05 Cough (principal); D50.9 Iron deficiency anemia, unspecified; R53.83 Other fatigue; J30.9 Allergic rhinitis, unspecified; K30 Functional dyspepsia; R10.9 Unspecified abdominal pain; R07.9 Chest pain, unspecified; G47.33 Obstructive sleep apnea (adult) (pediatric)
CPT/HCPCS: 82728; 83540; 83550; 85025

== ENCOUNTER 2021-07-10 12:21 | Emergency (ER) | payer MEDICAID, SELFPAY ==
[2021-07-10 12:39] VITALS: BP 165/99; PULSE 113; RESP 18; TEMP 36.7; O2SAT 97
--- NOTE | 2021-07-10 12:50 | ED.GENADUL_ITS ---
Discharge Plan Disposition Patient Disposition: HOME Condition: Stable Discharge Details Clinical Impression: Streptococcal sore throat Primary Care Provider: Radha Wayne ED Provider: Shannon Manrique Home Meds and New Rx's Prescriptions: New amoxicillin-pot clavulanate [Augmentin] 875-125 mg tablet 1 tab PO BID 10 Days Qty: 20 RF: 0 Continued lorazepam 0.5 MG tablet 0.5 mg PO DAILY PRNRF: 0 venlafaxine 75 mg capsule,extended release 24hr See Rx Instructions .ROUTE .COMPLEX RF: 0 venlafaxine 150 mg capsule,extended release 24hr See Rx Instructions .ROUTE .COMPLEX RF: 0 hydroxyzine HCl 50 mg tablet 50 mg PO BID RF: 0 buspirone 10 mg tablet 5 mg PO BID RF: 0 ibuprofen 200 mg Tablet 400 mg PO TID RF: 0 cholecalciferol (vitamin D3) 1,250 mcg (50,000 unit) capsule See Rx Instructions .ROUTE .COMPLEX RF: 0 propranolol 10 mg tablet 10 mg PO BID RF: 0 Discharge Instructions Instructions: Strep Throat (ED) Additional Instructions: The strep swab came back positive today. Please gargle with warm salt water up to 3 times daily as needed. Take antibiotics as directed. You were given the first dose of the antibiotic today here in the department you do not need to take another one till this evening. Please take Tylenol or Ibuprofen with food every 4-6 hours as needed for pain and swelling. You may use [id number] throat sprays as needed for pain. Follow up with primary care provider in 7-10 days. Return to ED sooner if any worsening or concerns. Increase oral fluids. Stand Alone Forms: Work Release Referrals: Radha Wayne [Primary Care Provider] - 1 week Medical Decision Making 35-year-old male presents to the ER with chief complaint of sore throat and sinus complaints for the last week. Reports increase throat pain over the last 24 hours and he noticed white spots on the back of his throat today. He has been taking DayQuil with little to no relief. He denies any other sick contacts. Reports he discussed his sister yesterday and had a negative Covid home test 2 days ago. He denies any fever. He is a non-smoker. Past medical history includes depression, obesity, anxiety, hypertension. Strep Swab ordered. Rapid strep swab positive. Patient given Augmentin and dexamethasone 10 mg here in the department. Instructed on salt water gargles and home care. Discuss strict return instructions. Instructed follow-up with PCP. Covid swab is pending at this time. Discussed quarantine until negative result. Patient verbalized understanding. This text was generated using [employer] system, please disregard any oddities of phrase or misspellings. HPI General Mode of arrival: ambulatory . Date/Time Provider Initiated Documentation: 07/10/21 12:41 . Limitations to Documentation: no limitations . Information obtained by: patient and RN notes reviewed . HPI Narrative: 35-year-old male presents to the ER with chief complaint of sore throat and sinus complaints for the last week. Reports increase throat pain over the last 24 hours and he noticed white spots on the back of his throat today. He has been taking DayQuil with little to no relief. He denies any other sick contacts. Reports he discussed his sister yesterday and had a negative Covid home test 2 days ago. He denies any fever. He is a non-smoker. Past medical history includes depression, obesity, anxiety, hypertension. Related Data Home Medications Medication Instructions Recorded Confirmed lorazepam 0.5 mg PO DAILY PRN 01/06/16 07/10/21 buspirone 5 mg PO BID 08/04/20 07/10/21 cholecalciferol (vitamin D3) See Rx Instructions .ROUTE .COMPLEX 08/04/20 07/10/21 hydroxyzine HCl 50 mg PO BID 08/04/20 07/10/21 ibuprofen 400 mg PO TID 08/04/20 07/10/21 venlafaxine See Rx Instructions .ROUTE .COMPLEX 08/04/20 07/10/21 venlafaxine See Rx Instructions .ROUTE .COMPLEX 08/04/20 07/10/21 propranolol 10 mg PO BID 10/29/20 07/10/21 amoxicillin-pot clavulanate 1 tab PO BID 10 Days #20 tab 07/10/21 [Augmentin] Previous Rx's Medication Instructions Recorded amoxicillin-pot clavulanate 1 tab PO BID 10 Days #20 tab 07/10/21 [Augmentin] Allergies Allergy/AdvReac Type Severity Reaction Status Date / Time trazodone AdvReac Intermediate Agitation Unverified 07/10/21 12:42 General Stated Complaint: GenMedical MARY: 3 Review of Systems All systems reviewed & are unremarkable except as noted in HPI and below ENT Ears, Nose, Mouth, and Throat: Reports otalgia, Reports odynophagia, Reports sinus pain and Reports sore throat Gastrointestinal Gastrointestinal: Reports odynophagia PFSH All Active Problems (Updated 07/10/21 @ 13:03 by Shannon Manrique) Chest pain (Acute) Chill (Acute) Nausea & vomiting (Acute) Streptococcal sore throat (Acute) Social History Smoking/Tobacco Use Status: Never Smoking risk assessment performed?: Yes Alcohol Intake: current Alcohol Intake frequency: a few times a month Drug use: Never Substance use type: does not use Do you feel safe at home: Yes Do you feel safe in your relationship?: Yes Exam Narrative Exam Narrative: Constitutional: Alert and oriented x3. Appears stated age. Obese body habitus. Head: Normocephalic, no trauma. Eyes: Pupils PERRL, Red reflex noted, EOM's intact. Eyelids symmetrical without lesions, discharge, or swelling. ENT: Left tympanic membrane erythemic, nonbulging. Right membrane within normal limits, External ear normal to inspection, no mastoid TTP, swelling, or erythema, Nasal turbinates WNL, no nasal discharge. Normal dentition, Posterior pharynx erythemic, positive exudate, tonsils are 2+ bilaterally. Chest: RRR, Normal S1, S2, distal pulses intact. Resp: Lungs clear to auscultation bilaterally, no wheezes, rales, or rhonchi. Abdomen: Soft, non-distended, Normoactive bowel sounds all 4 quads. Musculoskeletal: Normal gait, 5/5 strength to all four extremities. Skin: No suspicious rashes or lesions. Capillary refill less than 2 sec. Neurologic: Cranial nerves II-XII intact. Alert and oriented x 3. Motor: No deficits noted. Sensory: Intact bilaterally all 4 extremities. Reflexes: DTR's intact bilaterally.. Hematologic/Lymphatic: No ecchymosis, no lymphadenopathy. Course Vital Signs Vital signs: Vital Signs Temperature 36.7 C 07/10/21 12:39 Pulse 113 H 07/10/21 12:39 Respiratory Rate 18 07/10/21 12:39 Blood Pressure 165/99 H 07/10/21 12:39 Pulse Oximetry 97 07/10/21 12:39 Temperature 36.7 C 07/10/21 12:39 Temperature Source Temporal Artery Scan 07/10/21 12:39 Pulse 113 H 07/10/21 12:39 Respiratory Rate 18 07/10/21 12:39 Respiratory Effort Non-Labored 07/10/21 12:44 Respiratory Depth Normal 07/10/21 12:44 Respiratory Pattern Normal 07/10/21 12:44 Blood Pressure 165/99 H 07/10/21 12:39 Blood Pressure Position Sitting 07/10/21 12:39 Pulse Oximetry 97 07/10/21 12:39 Oxygen Delivery Method Room Air 07/10/21 12:39 Oxygen Flow Rate 0 07/10/21 12:39 Pain Level 3 07/10/21 12:39
[2021-07-10] MEDS: Dexamethasone 10 MG/ML VIAL PO (13:10)
[2021-07-10] MEDS: Amoxicillin 875/Clav. 125 TAB PO (13:11)
[2021-07-10] MEDS: Ibuprofen 400 MG TAB PO (13:11)
[2021-07-10] MEDS: Amox. 875/Clav. 125, 2 TABS/BTL 1 TAB PO (13:11)
== END 2021-07-10 13:13 | disposition home or self-care (01) ==
PROVIDERS: Emergency Provider Registered Nurse Emergency; PCP Nurse Practitioner Family
DX: J02.0 Streptococcal pharyngitis (principal)
CPT/HCPCS: 87880; 99283; J1100

== ENCOUNTER 2021-08-04 15:23 | Outpatient (REF) | payer MEDICAID, SELFPAY ==
[2021-08-04 15:04] LABS: Abs Immature Grans 0.07 10^3/uL (0.0-0.06); Absolute Basophil Count 0.05 10^3/uL (0.0-0.2); Absolute Eosinophil Count 0.11 10^3/uL (0.0-0.7); Absolute Lymphocyte Count 2.05 10^3/uL (1.2-3.4); Absolute Monocyte Count 0.68 10^3/uL (0.1-0.8); Absolute Neutrophil Count 5.89 10^3/uL (1.2-6.7); Basophils % 0.6; Eosinophils % 1.2; HCT 40.4 % (40.0-50.0); Immature Grans % 0.8; Lymphocytes % 23.2; MCH 26.5 pg (27.0-33.0); MCHC 32.2 % (32.0-36.0); MCV 82.3 fL (80-95); Monocytes % 7.7; Neutrophils % 66.5; Nucleated RBC 0 %; Platelet Count 344 10^3/uL (130-400); RBC 4.91 10^6/uL (4.36-5.78); RDW 15.9 % (11.8-14.1); RDW-SD 47.2 fL; WBC 8.85 10^3/uL (4.4-10.8)
[2021-08-04 16:27] LABS: Iron 63 ug/dL (65-175); Total Iron Binding Capacity 300 ug/dL (250-450); Transferrin Sat 21 % (20-55)
[2021-08-04 16:30] LABS: Ferritin 266 ng/mL (26-388)
[2021-08-05 16:54] LABS: Hemoglobinopathy Interpretat (See Note)
== END 2021-08-04 15:24 | disposition home or self-care (01) ==
LOC: NCHCN 15:23
PROVIDERS: PCP Nurse Practitioner Family; Visit Provider Nurse Practitioner Family
DX: D50.9 Iron deficiency anemia, unspecified (principal); R53.83 Other fatigue; I10 Essential (primary) hypertension; E66.01 Morbid (severe) obesity due to excess calories; K30 Functional dyspepsia; K76.0 Fatty (change of) liver, not elsewhere classified
CPT/HCPCS: 82728; 83020; 83540; 83550; 85025

== ENCOUNTER 2022-02-11 17:36 | Observation (INO) | payer MEDICAID, SELFPAY ==
[2022-02-11] VITALS (31 sets, daily range): BP systolic 140–166; BP diastolic 92–100; PULSE 77–94; RESP 13–31; TEMP 36.8–37.1; O2SAT 94–100
--- NOTE | 2022-02-11 17:45 | RT.EKG_ITS ---
APPROVED REPORT Exam: Resting ECG Reason for Exam: dizziness Patient Location: E HR:93 bpm ECG Measurements Heart Rate [address] 165 P 54 QRSd 104 QRS 5 QT 357 T 30 QTc 446 Conclusion Sinus rhythm...normal P axis, V-rate 60- 99 Low voltage, precordial leads...precordial leads <1.0mV. Sinus. Normal axis. No STEMI. I have reviewed and interpreted ECG and agree with software generated interpretation.
--- NOTE | 2022-02-11 18:30 | DI.CT_ITS ---
Exam(s) CT BRAIN NECK CTA EXAM: CT BRAIN NECK CTA CLINICAL HISTORY: transient right vision loss, ARREAGA, right facial numb. TECHNIQUE: Imaging Protocol: Axial CT angiography was performed with multi-slice acquisition and mu lti-planar and/or 3D reconstructions. CONTRAST MATERIAL: Intravenous: Omnipaque 350 contrast volume:100 mL COMPARISON: No previous for comparison. FINDINGS: Examination limited by patient body habitus and bolus administration. CT Head W/O and W: Ventricles and Extra axial spaces: Normal in size and morphology for the patient's age. Hemorrhage: None. Cerebral parenchyma: Normal. No acute territorial infarct. Midline shift: None. Brainstem/Cerebellum: Normal. Calvarium: Normal. Visualized Paranasal sinuses/Mastoids: There is mucosal thickening in the left sphenoid sinus. The r emaining visualized paranasal sinuses and mastoid air cells are clear. Soft Tissues: Unremarkable. Enhancement: Unremarkable. CTA Neck W: Common Carotid: Right: No dissection, occlusion or significant stenosis. Left: No dissection, occlusion or significant stenosis. External Carotid: Right: No occlusion or significant stenosis. Left: No occlusion or significant stenosis. Internal Carotid: Right: No dissection, occlusion or significant stenosis. Left: No dissection, occlusion or significant stenosis. Vertebral Artery: Right: No dissection, occlusion or significant stenosis. Left: No dissection, occlusion or significant stenosis. Lung Apices: Normal. Bones: Within normal limits for the patient's age. Soft Tissues: Normal. Thyroid gland: Unremarkable. CTA Brain W: Internal Carotid Arteries: Normal. Anterior Cerebral Arteries: Right: No aneurysm, occlusion or significant stenosis. Left: No aneurysm, occlusion or significant stenosis. Middle Cerebral Arteries: Right: No aneurysm, occlusion or significant stenosis. Left: No aneurysm, occlusion or significant stenosis. Posterior Cerebral Arteries: Right: No aneurysm, occlusion or significant stenosis. The right [employer] arises from the right PCOM whic h is a normal variant. Left: No aneurysm, occlusion or significant stenosis. Vertebral Arteries: Right: No aneurysm, occlusion or significant stenosis. Left: No aneurysm, occlusion or significant stenosis. Basilar Artery: No aneurysm, occlusion or significant stenosis. IMPRESSION: 1. No large vessel occlusion or significant stenosis on the CT angiography of the head. 2. No acute intracranial process. 3. No occlusion or significant stenosis on the CT angiography of the neck. RADIATION DOSE DELIVERED: 2,552.23mGy.cm Total DLP DATA REPOSITORY: All CT scans at this facility are submitted to the National Radiology Data Registry (NRDR) Dose Index Registry (DIR) with the [employer] (A[employer]). RADIATION OPTIMIZATION: All CT scans at this facility use at least one of these dose optimization te chniques: automated exposure control; mA and/or kV adjustment per patient size (includes targeted exa ms where dose is matched to clinical indication); or iterative reconstruction.
[2022-02-11 19:16] LABS: Abs Immature Grans 0.06 10^3/uL (0.0-0.06); Absolute Basophil Count 0.04 10^3/uL (0.0-0.2); Absolute Eosinophil Count 0.11 10^3/uL (0.0-0.7); Absolute Lymphocyte Count 2.01 10^3/uL (1.2-3.4); Absolute Monocyte Count 0.65 10^3/uL (0.1-0.8); Absolute Neutrophil Count 8.13 10^3/uL (1.2-6.7); Basophils % 0.4; HCT 37.6 % (40.0-50.0); HGB 12.4 g/dL (13.5-17.5); Immature Grans % 0.5; Lymphocytes % 18.3; MCH 28.5 pg (27.0-33.0); MCV 86 fL (80-95); MPV 8.5 fL (8.0-11.0); Monocytes % 5.9; Neutrophils % 73.9; Platelet Count 282 10^3/uL (130-400); RBC 4.35 10^6/uL (4.36-5.78); RDW 14.7 % (11.8-14.1); RDW-SD 46.2 fL
[2022-02-11 19:39] LABS: ALT 53 U/L (16-63); AST 29 U/L (15-37); Albumin 3.8 g/dL (3.4-5.0); Alkaline Phosphatase 72 U/L (46-116); Anion Gap 7.3 mmol/L (3-11); BUN 16 mg/dL (7-18); Bilirubin, Total 0.5 mg/dL (0.2-1.0); CO2 28.7 mmol/L (21.0-32.0); CREATININE 0.7 mg/dL (0.70-1.30); Calcium 9.3 mg/dL (8.5-10.1); Chloride 102 mmol/L (98-107); Glucose 92 mg/dL (74-106); Potassium 3.8 mmol/L (3.5-5.1); Sodium 138 mmol/L (136-145); Total Protein 7.5 g/dL (6.4-8.2)
[2022-02-11] MEDS: Omnipaque 350 MG/ML 100 ML BTL IJ (20:08)
[2022-02-11] MEDS: Normal Saline Flush 10 ML SYR IVP (20:09)
--- NOTE | 2022-02-11 21:11 | DI.VRAD_ITS ---
PROCEDURE INFORMATION: Exam: CT Head Without Contrast Exam date and time: 02/11/2022 8:03 PM Age: 36 years old Clinical indication: Transient right vision loss, ARREAGA, right facial numb TECHNIQUE: Imaging protocol: Computed tomography of the head without contrast. COMPARISON: No relevant prior studies available. FINDINGS: Brain: There is no acute intracranial hemorrhage, mass effect or midline shift. There is no large acute territorial cerebral infarct. Cerebral ventricles: No ventriculomegaly. Paranasal sinuses: There is mucosal thickening in the left sphenoid sinus. The remaining paranasal sinuses are clear. No air-fluid levels. Mastoid air cells: The mastoid air cells are unremarkable. Bones/joints: No acute fracture. Soft tissues: Unremarkable. IMPRESSION: No acute intracranial hemorrhage, mass effect or midline shift. PROCEDURE INFORMATION: Exam: CTA Head With Contrast, Arteriography Exam date and time: 02/11/2022 8:03 PM Age: 36 years old Clinical indication: Transient right vision loss, ARREAGA, right facial numb TECHNIQUE: Imaging protocol: Computed tomographic angiography of the head with contrast. Exam focused on the arteries. 3D rendering (Not supervised by radiologist): MIP and/or 3D reconstructed images were created by the technologist. Contrast material: OMNIPAQUE 350; Contrast volume: 100 ml; Contrast route: INTRAVENOUS (IV); COMPARISON: No relevant prior studies available. FINDINGS: Limitations: The study is limited secondary to suboptimal contrast bolus. ANTERIOR CIRCULATION: Right internal carotid artery: There is a persistent origin of the right GROUND CONTROL APPROACH TECHNICIAN.The right internal carotid artery shows no evidence of occlusion or significant stenosis. No aneurysm. Right middle cerebral artery: No occlusion or significant stenosis in the right MCA. No aneurysm. Right anterior cerebral artery: No occlusion or significant stenosis in the right CESAR. No aneurysm. Left internal carotid artery: No significant stenosis of the left ICA extracranial segment. No dissection or occlusion. Left middle cerebral artery: No definite occlusion in the left MCA, although this vessel is limited in evaluation especially in the superior segment. No aneurysm. Left anterior cerebral artery: No occlusion or significant stenosis in the left CESAR. No aneurysm. POSTERIOR CIRCULATION: Right vertebral artery: No occlusion or significant stenosis in the right vertebral artery. No aneurysm. Left vertebral artery: No occlusion or significant stenosis in the left vertebral artery. No aneurysm. Basilar artery: The basilar artery shows no evidence of occlusion or significant stenosis. No aneurysm. Right posterior cerebral artery: No occlusion or significant stenosis in the right GROUND CONTROL APPROACH TECHNICIAN. No aneurysm. Left posterior cerebral artery: No occlusion or significant stenosis in the left GROUND CONTROL APPROACH TECHNICIAN. No aneurysm. Brain: No definite mass, mass effect, or midline shift. Cerebral ventricles: No ventriculomegaly. Bones/joints: No acute fracture. Soft tissues: Unremarkable. IMPRESSION: Limited examination due to suboptimal contrast bolus. No definite large vessel occlusion. If there is further clinical concern for acute infarct, MRI may be considered. PROCEDURE INFORMATION: Exam: CTA Neck With Contrast Exam date and time: 02/11/2022 8:03 PM Age: 36 years old Clinical indication: Other: Transient right vision loss, ARREAGA, right facial numb TECHNIQUE: Imaging protocol: Computed tomographic angiography of the neck with contrast. 3D rendering (Not supervised by radiologist): MIP and/or 3D reconstructed images were created by the technologist. Contrast material: OMNIPAQUE 350; Contrast volume: 100 ml; Contrast route: INTRAVENOUS (IV); COMPARISON: CR XR CHEST 2V PA LATERAL 10/29/2020 12:32 PM FINDINGS: Limitations: Of note the origin of the great vessels are not fully imaged. Right common carotid artery: No significant stenosis in the right CCA. No dissection or occlusion. Right internal carotid artery: No significant stenosis of the right ICA extracranial segment. No dissection or occlusion. Right external carotid artery: No occlusion or stenosis of the origin in the right ECA. Left common carotid artery: No significant stenosis in the left CCA. No dissection or occlusion. Left internal carotid artery: No significant stenosis of the left ICA extracranial segment. No dissection or occlusion. Left external carotid artery: No occlusion or stenosis of the origin in the left ECA. Right vertebral artery: No significant stenosis in the right vertebral artery. No dissection or occlusion. Left vertebral artery: No significant stenosis in the left vertebral artery. No dissection or occlusion. Soft tissues: No significant soft tissue swelling. Bones/joints: No acute fracture. IMPRESSION: No significant carotid stenosis. No arterial occlusion or dissection. REFERENCES: NASCET CRITERIA. The degree of internal carotid artery stenosis is based on NASCET criteria. Normal is no stenosis. Mild is less than 50% stenosis. Moderate is 50-69% stenosis. Severe is 70% to 99% stenosis. Total occlusion is no detectable patent lumen. Dictated and Authenticated by: Monica Guevara MD. Ordering:JEEVAN Lopez MD
[2022-02-11 22:17] LABS: Troponin I < 50 ng/L (<or=60)
[2022-02-11] MEDS: Aspirin 81 MG CHEW 162 MG PO (22:24)
[2022-02-11 22:36] LABS: Source Nasal/Nares
--- NOTE | 2022-02-11 23:13 | ED.GENADUL_ITS ---
Discharge Plan Disposition Patient Disposition: STILL A PATIENT Condition: Serious Discharge Details Clinical Impression: Hx-TIA (transient ischemic attack), Amaurosis fugax of right eye Primary Care Provider: Radha Wayne ED Provider: Jessica Pope Home Meds and New Rx's Prescriptions: No Action lorazepam 0.5 MG tablet 0.5 mg PO DAILY PRN Label Comments: havent taken in two weeks venlafaxine 75 mg capsule,extended release 24hr See Rx Instructions .ROUTE .COMPLEX Label Comments: TAKE ONE CAPSULE BY MOUTH EVERY DAY WITH ONE 150MG DAILY Rx Instructions: Take 75mg with 150mg totaling 225mg PO daily venlafaxine 150 mg capsule,extended release 24hr See Rx Instructions .ROUTE .COMPLEX Label Comments: TAKE ONE CAPSULE BY MOUTH EVERY DAY WITH 75MG CAPSULE Rx Instructions: Take 75mg with 150mg totaling 225mg PO daily hydroxyzine HCl 50 mg tablet 50 mg PO BID Label Comments: TAKE ONE HALF TO ONE TABLET BY MOUTH TWO TIMES A DAY buspirone 10 mg tablet 5 mg PO BID Label Comments: TAKE 1/2 TABLET BY MOUTH TWO TIMES A DAY ibuprofen 200 mg Tablet 400 mg PO TID cholecalciferol (vitamin D3) 1,250 mcg (50,000 unit) capsule See Rx Instructions .ROUTE .COMPLEX Label Comments: TAKE ONE TABLET BY MOUTH WEEKLY Rx Instructions: 1,250 mcg orally weekly propranolol 10 mg tablet 10 mg PO BID Label Comments: TAKE ONE TABLET BY MOUTH TWICE A DAY ferrous sulfate [FeroSul] 325 mg (65 mg iron) tablet 325 mg PO DAILY Label Comments: TAKE 1 TABLET BY MOUTH ONCE DAILY ON TUESDAY, TUESDAY, AND TUESDAY DIRECTED. metformin 500 mg tablet extended release 24 hr 4 tab PO DAILY acetylcysteine 600 mg capsule 600 mg PO DAILY Label Comments: TAKE 2 CAPSULES BY MOUTH TWICE DAILY, IN THE MORNING AND AFTERNOON/EARLY EVENING NEEDED FOR MOOD Victoza 3-Carlo 0.6 mg/0.1 mL (18 mg/3 mL) pen injector 1.8 mg SUBCUT DAILY Label Comments: INJECT 1.8 MG SUBCUTANEOUSLY ONCE A DAY. Medical Decision Making Patient is alert and oriented with a nonfocal neurological exam CTA does not show evidence of large vessel occlusion, radiologist did indicate that the bolus was slightly subtherapeutic EKG and troponin are negative abcd2 0 Vitals are stable, patient is resting comfortably in room Received single dose of aspirin post ct Will admit for suspected transient ischemic attack for MRI, echocardiogram Patient agreeable to admission at this time Continue telemetry monitoring asymptomatic at time of reassessment Case discussed with Dr. Ross, hospitalist, request consultation with neurology prior to admission Call placed to [facility] at approximately 1045, pending neurology return phone call care will likely be transitioned to Ghulam Donnelly MD pending neurology consultation and admission to this hospital at 2338 HPI General Date/Time Provider Initiated Documentation: 02/11/22 17:58 . HPI Narrative: This 36-year-old male presents with report of vision loss 20 minutes prior to arrival while driving. He states that simultaneously he developed some paresthesias in the right side of the face with a mild headache. His symptoms lasted approximately 3 minutes. He denies any palpitations, chest pain, shortness of breath. He states that the vision loss was sudden. He denies any curtain like.. He denies prior history of similar symptoms in the past. He denies any associated pain. Suddenly he lost vision and did return perfusion. He denies any flashers or floaters. He denies any involvement of the left eye. asymptomatic at time of presentation per pt. He denies any dipl opia. He denies any stiff neck or recent trauma. Denies history of cocaine use. Does have a history of hyperlipidemia. Related Data Home Medications Medication Instructions Recorded Confirmed lorazepam 0.5 mg tablet 0.5 mg PO DAILY PRN 01/06/16 02/11/22 buspirone 10 mg tablet 5 mg PO BID 08/04/20 02/11/22 cholecalciferol (vitamin D3) 1,250 See Rx Instructions .Route .COMPLEX 08/04/20 02/11/22 mcg (50,000 unit) capsule hydroxyzine HCl 50 mg tablet 50 mg PO BID 08/04/20 07/10/21 ibuprofen 200 mg tablet 400 mg PO TID 08/04/20 02/11/22 venlafaxine 150 mg See Rx Instructions .Route .COMPLEX 08/04/20 07/10/21 capsule,extended release 24 hr venlafaxine 75 mg capsule,extended See Rx Instructions .Route .COMPLEX 08/04/20 02/11/22 release 24 hr propranolol 10 mg tablet 10 mg PO BID 10/29/20 02/11/22 acetylcysteine 600 mg capsule 600 mg PO DAILY 02/11/22 02/11/22 ferrous sulfate 325 mg (65 mg 325 mg PO DAILY 02/11/22 02/11/22 iron) tablet (FeroSul) liraglutide 0.6 mg/0.1 mL (18 mg/3 1.8 mg subcut DAILY 02/11/22 02/11/22 mL) subcutaneous pen injector (Victoza 3-Carlo) metformin 500 mg tablet,extended 4 tab PO DAILY 02/11/22 02/11/22 release 24 hr Allergies Allergy/AdvReac Type Severity Reaction Status Date / Time trazodone AdvReac Intermediate Agitation Unverified 02/11/22 17:53 General Stated Complaint: Dizzy/Sync MARY: 3 Review of Systems All systems reviewed & are unremarkable except as noted in HPI and below PFSH All Active Problems (Updated 02/11/22 @ 23:37 by LO Rodríguez) Chest pain (Acute) Chill (Acute) Nausea & vomiting (Acute) Hx-TIA (transient ischemic attack) (Acute) Amaurosis fugax of right eye (Acute) Social History Smoking/Tobacco Use Status: Never Smoking risk assessment performed?: Yes Alcohol Intake: current Alcohol Intake frequency: a few times a month Drug use: Never Substance use type: does not use Do you feel safe at home: Yes Do you feel safe in your relationship?: Yes Exam Const General: cooperative and comfortable HENMT Head: normal to inspection Eyes General: appearance normal, both eyes and all related structures Visual Hernandez: normal visual hernandez by confrontation Alignment and Position: alignment normal Sclera: sclerae normal Pupils: PERRL EOM: EOM intact bilaterally Direct ophthalmoscopy: papilledema present Neck Other: No carotid bruit Resp Effort & Inspection: normal respiratory effort Auscultation: clear to auscultation bilaterally Cardio Rate: regular rate Rhythm: regular rhythm Skin General skin exam: no rashes or lesions noted Neuro General: patient alert, patient oriented x3 and no focal motor deficits Cranial Nerves: CN's II-XI intact bilaterally and PERRL Speech: speech normal Gait: normal gait Motor: muscle tone normal throughout and strength 5/5 throughout Sensory Exam: no sensory deficits noted Other: Negative [id number], negative heel reno, negative pronator drift Course Vital Signs Vital signs: Vital Signs Temperature 36.8 C 02/11/22 17:50 Pulse 94 H 02/11/22 17:50 Respiratory Rate 20 02/11/22 17:50 Blood Pressure 166/100 H 02/11/22 17:50 Pulse Oximetry 98 02/11/22 17:50 Temperature 37.1 C 02/11/22 22:27 Temperature Source Tympanic 02/11/22 22:27 Pulse 82 02/11/22 22:27 Pulse 85 02/11/22 23:10 Respiratory Rate 22 02/11/22 23:10 Respiratory Effort Non-Labored 02/11/22 17:59 Blood Pressure 140/92 H 02/11/22 22:27 Blood Pressure Mean 102 02/11/22 22:26 Pulse Oximetry 94 02/11/22 23:10 Oxygen Delivery Method Room Air 02/11/22 18:45 Oxygen Flow Rate 0 02/11/22 18:45 Pain Level 2 02/11/22 22:27 Lab/Test Results Lab/Test Results: Laboratory Tests Range/Units 02/11/22 02/11/22 02/11/22 19:07 19:07 19:07 WBC (4.4-10.8) 10^3/uL 11.00 H RBC (4.36-5.78) 10^6/uL 4.35 L Hgb (13.5-17.5) g/dL 12.4 L Hct (40.0-50.0) % 37.6 L MCV (80-95) fL 86 MCH (27.0-33.0) pg 28.5 MCHC (32.0-36.0) % 33.0 RDW (11.8-14.1) % 14.7 H Plt Count (130-400) 10^3/uL 282 MPV (8.0-11.0) fL 8.5 Immature Gran % 0.5 Neutrophils % 73.9 Lymphocytes % 18.3 Monocytes % 5.9 Eosinophils % 1.0 Basophils % 0.4 Nucleated RBC % (0.0-0.3) % 0.0 Absolute Neutrophils (1.2-6.7) 10^3/uL 8.13 H Absolute Lymphocytes (1.2-3.4) 10^3/uL 2.01 Absolute Monocytes (0.1-0.8) 10^3/uL 0.65 Absolute Eosinophils (0.0-0.7) 10^3/uL 0.11 Absolute Basophils (0.0-0.2) 10^3/uL 0.04 Sodium (136-145) mmol/L 138 Potassium (3.5-5.1) mmol/L 3.8 Chloride (98-107) mmol/L 102 Carbon Dioxide (21.0-32.0) mmol/L 28.7 Anion Gap (3-11) mmol/L 7.3 BUN (7-18) mg/dL 16 Creatinine (0.70-1.30) mg/dL 0.7 Estimated GFR/1.73 m2 (mL/min/1.73m2) >= 60.00 Glucose (74-106) mg/dL 92 Calcium (8.5-10.1) mg/dL 9.3 Total Bilirubin (0.2-1.0) mg/dL 0.5 AST (15-37) U/L 29 ALT (16-63) U/L 53 Alkaline Phosphatase (46-116) U/L 72 Troponin I (<or=60) ng/L < 50 Total Protein (6.4-8.2) g/dL 7.5 Albumin (3.4-5.0) g/dL 3.8 COVID-19 Source Range/Units 02/11/22 22:25 WBC (4.4-10.8) 10^3/uL RBC (4.36-5.78) 10^6/uL Hgb (13.5-17.5) g/dL Hct (40.0-50.0) % MCV (80-95) fL MCH (27.0-33.0) pg MCHC (32.0-36.0) % RDW (11.8-14.1) % Plt Count (130-400) 10^3/uL MPV (8.0-11.0) fL Immature Gran % Neutrophils % Lymphocytes % Monocytes % Eosinophils % Basophils % Nucleated RBC % (0.0-0.3) % Absolute Neutrophils (1.2-6.7) 10^3/uL Absolute Lymphocytes (1.2-3.4) 10^3/uL Absolute Monocytes (0.1-0.8) 10^3/uL Absolute Eosinophils (0.0-0.7) 10^3/uL Absolute Basophils (0.0-0.2) 10^3/uL Sodium (136-145) mmol/L Potassium (3.5-5.1) mmol/L Chloride (98-107) mmol/L Carbon Dioxide (21.0-32.0) mmol/L Anion Gap (3-11) mmol/L BUN (7-18) mg/dL Creatinine (0.70-1.30) mg/dL Estimated GFR/1.73 m2 (mL/min/1.73m2) Glucose (74-106) mg/dL Calcium (8.5-10.1) mg/dL Total Bilirubin (0.2-1.0) mg/dL AST (15-37) U/L ALT (16-63) U/L Alkaline Phosphatase (46-116) U/L Troponin I (<or=60) ng/L Total Protein (6.4-8.2) g/dL Albumin (3.4-5.0) g/dL COVID-19 Source Nasal/Nares PAWSS Have you Been Recently Intoxicated or Drunk Within the Last 30 days?: No Have you Ever Experienced Previous Episodes of Alcohol Withdrawal?: No Have you ever Experienced Withdrawal Seizures?: No Have you ever Experienced Delirium Tremens(DT)s?: No Have you ever undergone Alcohol Rehabilitation Treatment (i.e, inpt ot outpatient treatment programs)?: No Have you ever Experienced Blackouts?: No Have you ever Combined Alcohol with other Downers within the last 90 days?: No Have you ever Combined Alcohol with any other Substance of Abuse during the last 90 days?: No Positive Blood Alcohol level on Presentation? [PCS.BAL]: No Evidence of Increased Autonomic Activity (i.e. HR>120, tremor, sweating, agitation, nausea)?: No Result: 0
[2022-02-11 23:28] LABS: COVID-19 PCR Negative (Negative)
[2022-02-12] VITALS (9 sets, daily range): BP systolic 126–164; BP diastolic 60–92; PULSE 61–87; RESP 18–29; TEMP 36.3–37; O2SAT 95–97
[2022-02-12 00:09] LABS: ESR 38 mm/hr (0-15)
[2022-02-12 00:17] LABS: C-Reactive Protein 2.78 mg/dL (0.0-0.3)
--- NOTE | 2022-02-12 00:21 | HPE_ITS ---
Date of service: 02/12/22 Time of Service: 00:23 Assessment and Plan Assessment and plan (1) Transient visual loss of right eye: Status: Acute Assessment and plan: ?TIA vs atypical migraine vs manifestation of vasculitis. Will monitor on tele. Neurochecks. Obtain MRI, echo, per recommendations of the neurologist at [facility] [place]. Will treat with asa. Check fasting lipid panel. Could benefit from a referral to optometry. ESR/CRP mildly elevated - consider temporal arteritis. (2) Hypertension: Assessment and plan: Hold propranolol x 24 hrs (permissive hypertension) (3) Anxiety disorder: Assessment and plan: Continue home buspirone, venlafaxine (4) SUDHA on CPAP: Assessment and plan: Continue CPAP (5) Morbid obesity with BMI of 60.0-69.9, adult: Status: Chronic Assessment and plan: The patient is on metformin and victoza for weight loss in preparation for the gastric bypass surgery. Hold metformin as the patient has received IV contrast. (6) DVT prophylaxis: Status: Acute Assessment and plan: SC enoxaparin (7) Discharge planning issues: Status: Acute Assessment and plan: Full code History of Present Illness History of Present Illness Chief Complaint: Sudden loss of vision in the R eye Narrative: Mr Wayne is a 36 year old male with PMHx of hypertension, SUDHA on CPAP, anxiety with panic attacks, obesity with BMI of 64 kg/m2, who had an episode of sudden vision loss in the right eye followed by development of right facial numbness an d mild frontal headache that moved from the center to the right. This happened while he was driving. He had pulled over. The episode lasted three to five minutes and resolved on its own. The patient is sure that it was right eye vision loss because when he would close his left eye, he would not be able to see anything. By the time the patient had presented to [facility] ED, he was asymptomatic. CT/CTA head were negative. [facility] [place] neurology recommended a TIA workup as well as checking ESR/CRP as the patient might have a vasculitis. Even though there is a mention of TIAs in the patient's PMHx in our chart, the patient states he had never had one. He occasionally gets headaches, but today's headache did not feel like his usual headaches. He has not had any tick bites, though he does have an outdoor cat. The patient is preparing for a gastric bypass surgery. He is on victoza and metformin for weight loss and does not currently have a diagnosis of diabetes. Review of Systems All systems reviewed & are unremarkable except as noted in HPI and below PFSH All Active Problems (Updated 02/12/22 @ 02:21 by Yu Ross MD) Discharge planning issues (Acute) DVT prophylaxis (Acute) Transient visual loss of right eye (Acute) Morbid obesity with BMI of 60.0-69.9, adult (Chronic) Chest pain (Acute) Chill (Acute) Nausea & vomiting (Acute) Hx-TIA (transient ischemic attack) (Acute) Amaurosis fugax of right eye (Acute) Medical History (Updated 02/12/22 @ 02:21 by Yu Ross MD) Anxiety disorder Hypertension SUDHA on CPAP Panic attacks Surgical History (Updated 02/12/22 @ 02:09 by Yu Ross MD) S/P cholecystectomy Family History (Updated 02/12/22 @ 02:11 by Yu Ross MD) Father Heart disease Paternal Uncle Heart disease Paternal Grandmother Stroke Social History Smoking/Tobacco Use Status: Never Smoking risk assessment performed?: Yes Alcohol Intake: current Alcohol Intake frequency: a few times a month Drug use: Never Substance use type: does not use Do you feel safe at home: Yes Do you feel safe in your relationship?: Yes Meds Allergies and Home Medications Allergies Allergy/AdvReac Type Severity Reaction Status Date / Time trazodone AdvReac Intermediate Agitation Unverified 02/11/22 17:53 Home Medications Medication Instructions Recorded Confirmed Type lorazepam 0.5 mg tablet 0.5 mg PO DAILY PRN 01/06/16 02/11/22 History buspirone 10 mg tablet 5 mg PO BID 08/04/20 02/11/22 History cholecalciferol (vitamin D3) 1,250 See Rx Instructions .Route .COMPLEX 08/04/20 02/11/22 History mcg (50,000 unit) capsule hydroxyzine HCl 50 mg tablet 50 mg PO BID 08/04/20 07/10/21 History ibuprofen 200 mg tablet 400 mg PO TID 08/04/20 02/11/22 History venlafaxine 150 mg See Rx Instructions .Route .COMPLEX 08/04/20 07/10/21 History capsule,extended release 24 hr venlafaxine 75 mg capsule,extended See Rx Instructions .Route .COMPLEX 08/04/20 02/11/22 History release 24 hr propranolol 10 mg tablet 10 mg PO BID 10/29/20 02/11/22 History acetylcysteine 600 mg capsule 600 mg PO DAILY 02/11/22 02/11/22 History ferrous sulfate 325 mg (65 mg 325 mg PO DAILY 02/11/22 02/11/22 History iron) tablet (FeroSul) liraglutide 0.6 mg/0.1 mL (18 mg/3 1.8 mg subcut DAILY 02/11/22 02/11/22 History mL) subcutaneous pen injector (Victoza 3-Carlo) metformin 500 mg tablet,extended 4 tab PO DAILY 02/11/22 02/11/22 History release 24 hr Exam Narrative Exam Narrative: General: Very pleasant obese male with blue hair who is A&ox3 and laying comfortably in bed Neurological: A&Ox3, CN II-XII intact, sensory intact, 5/5 strength throughout, Finger to nose intact Psychiatric: Appropriate speech pattern content Skin: Visible skin intact HEENT: Atraumatic,normocephalic, EOMI, MMM, clear oropharynx, no submandibular or cervical lymphadenopathy, no goiter or JVD; I am unable to feel temporal arteries Cardiovascular: RRR, no m/m/m Lungs: CTAB Gastrointestinal: soft, nontender, nondistended Genitourinary: deferred Extremities: no edema BLE's, 1+ pedal pulses B Results Imaging Additional studies: CT head: No acute intracranial hemorrhage, mass effect or midline shift. CTA head: Limited examination due to suboptimal contrast bolus. No definite large vessel occlusion. If there is further clinical concern for acute infarct, MRI may be considered. CTA neck: No significant carotid stenosis. No arterial occlusion or dissection. Labs Result diagrams: 02/11/22 19:07 02/11/22 19:07 Labs: Laboratory Results - last 24 hr 02/11/22 02/11/22 02/11/22 19:07 19:07 19:07 WBC 11.00 H RBC 4.35 L Hgb 12.4 L Hct 37.6 L MCV 86 MCH 28.5 MCHC 33.0 RDW 14.7 H Plt Count 282 MPV 8.5 Immature Gran % 0.5 Neutrophils % 73.9 Lymphocytes % 18.3 Monocytes % 5.9 Eosinophils % 1.0 Basophils % 0.4 Nucleated RBC % 0.0 Absolute Neutrophils 8.13 H Absolute Lymphocytes 2.01 Absolute Monocytes 0.65 Absolute Eosinophils 0.11 Absolute Basophils 0.04 ESR Sodium 138 Potassium 3.8 Chloride 102 Carbon Dioxide 28.7 Anion Gap 7.3 BUN 16 Creatinine 0.7 Estimated GFR/1.73 m2 >= 60.00 Glucose 92 Calcium 9.3 Total Bilirubin 0.5 AST 29 ALT 53 Alkaline Phosphatase 72 Troponin I < 50 Total Protein 7.5 Albumin 3.8 COVID-19 Source SARS-CoV-2 (PCR) 02/11/22 02/11/22 19:07 22:25 WBC RBC Hgb Hct MCV MCH MCHC RDW Plt Count MPV Immature Gran % Neutrophils % Lymphocytes % Monocytes % Eosinophils % Basophils % Nucleated RBC % Absolute Neutrophils Absolute Lymphocytes Absolute Monocytes Absolute Eosinophils Absolute Basophils ESR 38 H Sodium Potassium Chloride Carbon Dioxide Anion Gap BUN Creatinine Estimated GFR/1.73 m2 Glucose Calcium Total Bilirubin AST ALT Alkaline Phosphatase Troponin I Total Protein Albumin COVID-19 Source Nasal/Nares SARS-CoV-2 (PCR) Negative Last Vital Signs Temp 37.1 C 02/11/22 22:27 Pulse 82 02/11/22 22:27 Resp 29 H 02/11/22 23:30 BP 140/92 H 02/11/22 22:27 Pulse Ox 96 02/11/22 23:30 PAWSS Have you Been Recently Intoxicated or Drunk Within the Last 30 days?: No Have you Ever Experienced Previous Episodes of Alcohol Withdrawal?: No Have you ever Experienced Withdrawal Seizures?: No Have you ever Experienced Delirium Tremens(DT)s?: No Have you ever undergone Alcohol Rehabilitation Treatment (i.e, inpt ot outpatient treatment programs)?: No Have you ever Experienced Blackouts?: No Have you ever Combined Alcohol with other Downers within the last 90 days?: No Have you ever Combined Alcohol with any other Substance of Abuse during the last 90 days?: No Positive Blood Alcohol level on Presentation? [PCS.BAL]: No Evidence of Increased Autonomic Activity (i.e. HR>120, tremor, sweating, agitation, nausea)?: No Result: 0
[2022-02-12 00:36] LABS: Lab Add On Test DONE
[2022-02-12 01:03] LABS: Procalcitonin < 0.1 ng/mL
[2022-02-12] MEDS: Lactated Ringers 1,000 ML 200 ML IV ×2 (02:05→07:07)
[2022-02-12] MEDS: Enoxaparin 40 MG/0.4 ML SYR SC ×2 (02:05→10:05)
[2022-02-12 07:15] LABS: Abs Immature Grans 0.03 10^3/uL (0.0-0.06); Absolute Basophil Count 0.04 10^3/uL (0.0-0.2); Absolute Eosinophil Count 0.14 10^3/uL (0.0-0.7); Absolute Monocyte Count 0.52 10^3/uL (0.1-0.8); Absolute Neutrophil Count 4.48 10^3/uL (1.2-6.7); Basophils % 0.5; Eosinophils % 1.9; HGB 11.4 g/dL (13.5-17.5); Immature Grans % 0.4; Lymphocytes % 30.6; MCH 28.6 pg (27.0-33.0); MCHC 33.5 % (32.0-36.0); MCV 85 fL (80-95); MPV 8.7 fL (8.0-11.0); Monocytes % 6.9; Neutrophils % 59.7; Platelet Count 267 10^3/uL (130-400); RBC 3.98 10^6/uL (4.36-5.78); RDW 14.8 % (11.8-14.1); RDW-SD 45.2 fL; WBC 7.51 10^3/uL (4.4-10.8)
[2022-02-12 07:24] LABS: Hemoglobin A1C 5.3 % (<5.7)
--- NOTE | 2022-02-12 08:00 | DI.MRI_ITS ---
Exam(s) MR BRAIN WO EXAM: MR BRAIN WO CLINICAL HISTORY: ?TIA,H/O TIA,AMAUROSIS FUGAX RT EYE, VISION LOSS, PARESTHESIAS RT FACE TECHNIQUE: Multiplanar multisequence MRI of the brain was performed. COMPARISON: CT CT BRAIN NECK CTA from 02/11/2022 FINDINGS: VENTRICLES AND EXTRA AXIAL SPACES: Normal in size and morphology for the patient's age. MIDLINE SHIFT: None. CEREBRAL PARENCHYMA: No focus of restricted diffusion to suggest acute infarct. No space-occupying le indu identified. HEMORRHAGE: None. BRAINSTEM/CEREBELLUM: Normal. CALVARIUM: Normal. VISUALIZED PARANASAL SINUSES/MASTOIDS:There is mucosal thickening in the left sphenoid sinus. The re maining visualized paranasal sinuses and mastoid air cells are clear. POARCH OF QUINONES: Normal flow void. PITUITARY GLAND: Unremarkable. OTHER FINDINGS: None. IMPRESSION: No acute intracranial process. DATA REPOSITORY:
[2022-02-12] MEDS: Ibuprofen 200 MG TAB 400 MG PO (08:05)
[2022-02-12] MEDS: Ferrous Sulfate 325 MG TAB PO (08:05)
[2022-02-12] MEDS: Aspirin E.C. 81 MG TABEC PO (08:05)
[2022-02-12] MEDS: busPIRone 5 MG TAB PO (08:06)
[2022-02-12] MEDS: Venlafaxine 75 MG CAPCR 225 MG PO (08:06)
[2022-02-12] MEDS: Acetylcysteine 600 MG CAP PO (08:06)
[2022-02-12 08:16] LABS: Anion Gap 6.8 mmol/L (3-11); BUN 15 mg/dL (7-18); CO2 28.2 mmol/L (21.0-32.0); CREATININE 0.6 mg/dL (0.70-1.30); Calcium 8.6 mg/dL (8.5-10.1); Calculated LDL 69 mg/dL (<100); Chloride 105 mmol/L (98-107); Cholesterol 144 mg/dL (<200); Glucose 99 mg/dL (74-106); HDL Cholesterol 28 mg/dL (40-60); Magnesium 2.1 mg/dL (1.8-2.4); Potassium 3.9 mmol/L (3.5-5.1); Sodium 140 mmol/L (136-145); Triglyceride 239 mg/dL (<150)
--- NOTE | 2022-02-12 08:37 | PDOC.CMIN ---
- If Service Date Differs Date of service: 02/12/22 Time of Service: 08:38 Care Management Initial Assess REASON FOR HOSPITALIZATION:: Transient visual loss of right eye, Hypertension PAST MEDICAL HISTORY/PAST SURGICAL HISTORY:: All Active Problems (Updated 02/12/22 @ 02:21 by Yu Ross MD). Discharge planning issues (Acute). DVT prophylaxis (Acute). Transient visual loss of right eye (Acute). Morbid obesity with BMI of 60.0-69.9, adult (Chronic). Chest pain (Acute). Chill (Acute). Nausea & vomiting (Acute). Hx-TIA (transient ischemic attack) (Acute). Amaurosis fugax of right eye (Acute). Medical History (Updated 02/12/22 @ 02:21 by Yu Ross MD). Anxiety disorder. Hypertension. SUDHA on CPAP. Panic attacks. Surgical History (Updated 02/12/22 @ 02:09 by Yu Ross MD). S/P cholecystectomy PREVIOUS FUNCTIONAL STATUS/SOCIAL/FAMILY SUPPORTS:: René lives in [facility] with his girlfriend Cherelle. Other than Cherelle, he identifies his brother's Mikhail and Raphael as being his closest family supports. 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 He drives and is independent at baseline. CURRENT FUNCTIONAL STATUS:: René was sitting up in bed when CM met with him. He is alert, oriented and easy to engage in conversation. ADVANCE DIRECTIVES:: None, CM will offer forms Has patient been provided with info about the portal/API?: Yes Did the patient sign up for the portal?: No CODE STATUS:: Full Code INSURANCE COVERAGE / FINANCIAL ISSUES:: Medicaid CURRENT HOME/COMMUNITY SERVICES/EQUIPMENT:: CPAP Machine PRIMARY CARE PHYSICIAN:: Radha Wayne PATIENT/FAMILY EDUCATION NEEDS:: Review discharge instructions, limitations, medications and plan to follow up with community providers. ask me three. TRANSPORTATION:: Via private vehicle PLAN:: René is being closely monitored with additional medical workup. Anticipate, he will discharge home with medically ready per provider. He will likely need outpatient follow up appointments with his PCP, neurology, Opthamology. CM will continue to follow.
[2022-02-12 09:22] LABS: Bilirubin Negative (Negative); Blood Negative (Negative); Clarity Clear (Clear); Glucose Negative (Negative); Ketones Negative (Negative); Leukocyte Esterase Negative (Negative); Nitrite Negative (Negative); Specific Gravity 1.025 (1.005-1.025); Urobilinogen 0.2 EU/dL (Up TO 0.2); pH 6.5 (5-8)
[2022-02-12 09:34] LABS: *AMPHETAMINES SCREEN URINE Negative (Negative); *BARBITURATES SCREEN URINE Negative (Negative); *BENZODIAZEPINES SCREEN URINE Negative (Negative); Cannabinoids THC Negative (Negative); Cocaine Screen,Urine Negative (Negative); METHADONE URINE SCREEN Negative (Negative); OPIATES URINE SCREEN Negative (Negative); Tricyclic Antidepressants Negative (Negative)
--- NOTE | 2022-02-12 11:32 | W.PM.DS.N ---
Date of service: 02/12/22 Time of Service: 11:33 DS: Diagnosis Discharge Diagnosis (1) Transient visual loss of right eye: Status: Acute (2) Hypertension: (3) Anxiety disorder: (4) SUDHA on CPAP: (5) Morbid obesity with BMI of 60.0-69.9, adult: Status: Chronic Discharge Plan Disposition Patient Disposition: HOME Condition: Improving Discharge Details Reason For Visit: Transient Vision Loss, ?TIA Admit Date/Time: 02/12/22 00:14 Admit Provider: Yu Ross Attending Provider: Yu Ross Primary Care Provider: Radha Wayne [facility] Hospital Course: This is a 36 year old male with history of hypertension, SUDHA on CPAP, anxiety with panic attacks, obesity with BMI of 64 kg/m2, who had an episode of sudden vision loss in the right eye followed by development of right facial numbness and mild frontal headache that moved from the center to the right. This happened while he was driving. He had pulled over. The episode lasted three to five minutes and resolved on its own. The patient is sure that it was right eye vision loss because when he would close his left eye, he would not be able to see anything. By the time the patient had presented to [facility] ED, he was asymptomatic.? CT/CTA head were negative. [facility] neurology recommended a TIA workup as well as checking ESR/CRP as the patient might have a vasculitis. Even though there is a mention of TIAs in the patient's PMHx in our chart, the patient states he had never had one. He occasionally gets headaches, but today's headache did not feel like his usual headaches. He has not had any tick bites, though he does have an outdoor cat. The patient is preparing for a gastric bypass surgery. He is on victoza and metformin for weight loss and does not currently have a diagnosis of diabetes. He was admitted overnight, MRI brain negative. His symptoms remained resolved other than his mild headache. He is stable for discharge to home. no medication changes. He is being referred to [facility], where he is established, for further evaluation. discharge discussed with DR Montserrat Rashid Meds and New Rx's Prescriptions: Continued lorazepam 0.5 MG tablet 0.5 mg PO DAILY PRN Label Comments: havent taken in two weeks venlafaxine 75 mg capsule,extended release 24hr See Rx Instructions .ROUTE .COMPLEX Label Comments: TAKE ONE CAPSULE BY MOUTH EVERY DAY WITH ONE 150MG DAILY Rx Instructions: Take 75mg with 150mg totaling 225mg PO daily venlafaxine 150 mg capsule,extended release 24hr See Rx Instructions .ROUTE .COMPLEX Label Comments: TAKE ONE CAPSULE BY MOUTH EVERY DAY WITH 75MG CAPSULE Rx Instructions: Take 75mg with 150mg totaling 225mg PO daily hydroxyzine HCl 50 mg tablet 50 mg PO BID Label Comments: TAKE ONE HALF TO ONE TABLET BY MOUTH TWO TIMES A DAY buspirone 10 mg tablet 5 mg PO BID Label Comments: TAKE 1/2 TABLET BY MOUTH TWO TIMES A DAY ibuprofen 200 mg Tablet 400 mg PO TID cholecalciferol (vitamin D3) 1,250 mcg (50,000 unit) capsule See Rx Instructions .ROUTE .COMPLEX Label Comments: TAKE ONE TABLET BY MOUTH WEEKLY Rx Instructions: 1,250 mcg orally weekly propranolol 10 mg tablet 10 mg PO BID Label Comments: TAKE ONE TABLET BY MOUTH TWICE A DAY ferrous sulfate [FeroSul] 325 mg (65 mg iron) tablet 325 mg PO DAILY Label Comments: TAKE 1 TABLET BY MOUTH ONCE DAILY ON TUESDAY, TUESDAY, AND TUESDAY DIRECTED. metformin 500 mg tablet extended release 24 hr 4 tab PO DAILY acetylcysteine 600 mg capsule 600 mg PO DAILY Label Comments: TAKE 2 CAPSULES BY MOUTH TWICE DAILY, IN THE MORNING AND AFTERNOON/EARLY EVENING NEEDED FOR MOOD Victoza 3-Carlo 0.6 mg/0.1 mL (18 mg/3 mL) pen injector 1.8 mg SUBCUT DAILY Label Comments: INJECT 1.8 MG SUBCUTANEOUSLY ONCE A DAY. Discharge Instructions Instructions: Your [facility] (GEN) Stand Alone Forms: Nursing Discharge Form Referrals: GABRIELE GALO [ NON-[facility] STAFF PHYSICIAN] - (Please call [facility] on Tuesday to make a follow up appointment. (The Office is closed today 02/12/22) [phone]) Activity:: Activity as Tolerated Equipment/Supplies:: No Equipment Needed Diet:: As Tolerated Discharge Orders Discharge Orders: Discharge Order (Routine); Ordered 02/12/22 Ordered By: Shannon Parker Discharge Data Discharge Date/Time-TO BE ENTERED AT DEPARTURE: 02/12/22 13:16 DS: Summary Time Spent with Patient providing and/or coordinating discharge services: Less than 30 minutes Status at Discharge Functional status at discharge: independent ambulation Overall status at discharge: patient is back to baseline Mental Status: mental status grossly normal Speech and Movement: speech and movement normal Mood: congruent mood Affect: normal affect Exam Const General: cooperative and comfortable Nutritional Appearance: obese morbidly obese Orientation: alert, awake and oriented x3 HENMT Head: normal to inspection Eyes General: appearance normal, both eyes and all related structures Alignment and Position: alignment normal Sclera: sclerae normal Pupils: PERRL EOM: EOM intact bilaterally Resp Effort & Inspection: normal respiratory effort Auscultation: clear to auscultation bilaterally Cardio Rate: regular rate Rhythm: regular rhythm Skin General skin exam: no rashes or lesions noted Neuro General: patient alert, patient oriented x3 and no focal motor deficits Cranial Nerves: CN's II-XI intact bilaterally and PERRL Speech: speech normal Gait: normal gait Motor: muscle tone normal throughout and strength 5/5 throughout Sensory Exam: no sensory deficits noted Psych Mental Status: mental status grossly normal Speech and Movement: speech and movement normal Mood: congruent mood Affect: normal affect DS: Data Vitals/I&O Vitals and I&O: Vital Signs Temperature 36.7 C 02/12/22 11:20 Temperature Source Tympanic 02/12/22 11:20 Pulse 70 02/12/22 11:20 Pulse Rhythm Regular 02/12/22 09:16 Pulse 88 02/11/22 23:30 Respiratory Rate 18 02/12/22 11:20 Respiratory Effort Non-Labored 02/12/22 09:16 Respiratory Depth Normal 02/12/22 09:16 Respiratory Pattern Normal 02/12/22 09:16 Blood Pressure 140/86 02/12/22 11:20 Blood Pressure Mean 102 02/11/22 22:26 Pulse Oximetry 97 02/12/22 11:20 Oxygen Delivery Method Room Air 02/12/22 11:20 Oxygen Flow Rate 0 02/12/22 11:20 Pain Level 0 02/12/22 11:20 Comment 02/12/22 04:20 Intake & Output 02/11/22 02/11/22 02/12/22 11:59 23:59 11:59 Intake Total 1480 / 1480 Balance 1480 / 1480 Weight 214.096 kg 214.2 kg Intake: IV 1000 / 1000 Oral 480 / 480 Other: Urine Appearance Clear Data Completed and Pending Labs on day of discharge: Labs from last 24 hours 02/12/22 02/12/22 02/12/22 09:00 09:00 06:43 WBC 7.51 RBC 3.98 L Hgb 11.4 L Hct 34.0 L MCV 85 MCH 28.6 MCHC 33.5 RDW 14.8 H Plt Count 267 MPV 8.7 Immature Gran % 0.4 Neutrophils % 59.7 Lymphocytes % 30.6 Monocytes % 6.9 Eosinophils % 1.9 Basophils % 0.5 Nucleated RBC % 0.0 Absolute Neutrophils 4.48 Absolute Lymphocytes 2.30 Absolute Monocytes 0.52 Absolute Eosinophils 0.14 Absolute Basophils 0.04 ESR Sodium Potassium Chloride Carbon Dioxide Anion Gap BUN Creatinine Estimated GFR/1.73 m2 Glucose Hemoglobin A1c Calcium Magnesium Total Bilirubin AST ALT Alkaline Phosphatase Troponin I C-Reactive Protein Total Protein Albumin Triglycerides Total Cholesterol LDL Cholesterol, Calc HDL Cholesterol Procalcitonin Urine Color Yellow Urine Clarity Clear Urine pH 6.5 Ur Specific [place] 1.025 Urine Protein Negative Urine Ketones Negative Urine Blood Negative Urine Nitrite Negative Urine Bilirubin Negative Urine Urobilinogen 0.2 Ur Leukocyte Esterase Negative Urine Glucose Negative Urine Opiates Screen Negative Urine Methadone Screen Negative Ur Barbiturates Screen Negative Ur Tricyclics Screen Negative Ur Amphetamines Screen Negative U Benzodiazepines Scrn Negative Urine Cocaine Screen Negative Ur THC Screen Negative A.phagocytophil DNA PCR B. divergens/MO-1 PCR Babesia duncani (PCR) Babesia microti DNA PCR Borrelia (PCR) Lyme Disease Antibody COVID-19 Source SARS-CoV-2 (PCR) E.chaffeensis DNA (PCR) E.ewingii/canis DNA PCR E. muris-like DNA (PCR) Add-On Test Request 02/12/22 02/12/22 02/12/22 06:43 06:43 00:10 WBC RBC Hgb Hct MCV MCH MCHC RDW Plt Count MPV Immature Gran % Neutrophils % Lymphocytes % Monocytes % Eosinophils % Basophils % Nucleated RBC % Absolute Neutrophils Absolute Lymphocytes Absolute Monocytes Absolute Eosinophils Absolute Basophils ESR Sodium 140 Potassium 3.9 Chloride 105 Carbon Dioxide 28.2 Anion Gap 6.8 BUN 15 Creatinine 0.6 L Estimated GFR/1.73 m2 >= 60.00 Glucose 99 Hemoglobin A1c 5.3 Calcium 8.6 Magnesium 2.1 Total Bilirubin AST ALT Alkaline Phosphatase Troponin I C-Reactive Protein Total Protein Albumin Triglycerides 239 H Total Cholesterol 144 LDL Cholesterol, Calc 69 HDL Cholesterol 28 L Procalcitonin Urine Color Urine Clarity Urine pH Ur Specific [place] Urine Protein Urine Ketones Urine Blood Urine Nitrite Urine Bilirubin Urine Urobilinogen Ur Leukocyte Esterase Urine Glucose Urine Opiates Screen Urine Methadone Screen Ur Barbiturates Screen Ur Tricyclics Screen Ur Amphetamines Screen U Benzodiazepines Scrn Urine Cocaine Screen Ur THC Screen A.phagocytophil DNA PCR Pending B. divergens/MO-1 PCR Pending Babesia duncani (PCR) Pending Babesia microti DNA PCR Pending Borrelia (PCR) Pending Lyme Disease Antibody Pending COVID-19 Source SARS-CoV-2 (PCR) E.chaffeensis DNA (PCR) Pending E.ewingii/canis DNA PCR Pending E. muris-like DNA (PCR) Pending Add-On Test Request 02/12/22 02/12/22 02/11/22 00:10 00:10 22:25 WBC RBC Hgb Hct MCV MCH MCHC RDW Plt Count MPV Immature Gran % Neutrophils % Lymphocytes % Monocytes % Eosinophils % Basophils % Nucleated RBC % Absolute Neutrophils Absolute Lymphocytes Absolute Monocytes Absolute Eosinophils Absolute Basophils ESR Sodium Potassium Chloride Carbon Dioxide Anion Gap BUN Creatinine Estimated GFR/1.73 m2 Glucose Hemoglobin A1c Calcium Magnesium Total Bilirubin AST ALT Alkaline Phosphatase Troponin I C-Reactive Protein Total Protein Albumin Triglycerides Total Cholesterol LDL Cholesterol, Calc HDL Cholesterol Procalcitonin < 0.1 Urine Color Urine Clarity Urine pH Ur Specific [place] Urine Protein Urine Ketones Urine Blood Urine Nitrite Urine Bilirubin Urine Urobilinogen Ur Leukocyte Esterase Urine Glucose Urine Opiates Screen Urine Methadone Screen Ur Barbiturates Screen Ur Tricyclics Screen Ur Amphetamines Screen U Benzodiazepines Scrn Urine Cocaine Screen Ur THC Screen A.phagocytophil DNA PCR B. divergens/MO-1 PCR Babesia duncani (PCR) Babesia microti DNA PCR Borrelia (PCR) Lyme Disease Antibody COVID-19 Source Nasal/Nares SARS-CoV-2 (PCR) Negative E.chaffeensis DNA (PCR) E.ewingii/canis DNA PCR E. muris-like DNA (PCR) Add-On Test Request DONE 02/11/22 02/11/22 02/11/22 19:07 19:07 19:07 WBC RBC Hgb Hct MCV MCH MCHC RDW Plt Count MPV Immature Gran % Neutrophils % Lymphocytes % Monocytes % Eosinophils % Basophils % Nucleated RBC % Absolute Neutrophils Absolute Lymphocytes Absolute Monocytes Absolute Eosinophils Absolute Basophils ESR 38 H Sodium Potassium Chloride Carbon Dioxide Anion Gap BUN Creatinine Estimated GFR/1.73 m2 Glucose Hemoglobin A1c Calcium Magnesium Total Bilirubin AST ALT Alkaline Phosphatase Troponin I < 50 C-Reactive Protein 2.78 H Total Protein Albumin Triglycerides Total Cholesterol LDL Cholesterol, Calc HDL Cholesterol Procalcitonin Urine Color Urine Clarity Urine pH Ur Specific [place] Urine Protein Urine Ketones Urine Blood Urine Nitrite Urine Bilirubin Urine Urobilinogen Ur Leukocyte Esterase Urine Glucose Urine Opiates Screen Urine Methadone Screen Ur Barbiturates Screen Ur Tricyclics Screen Ur Amphetamines Screen U Benzodiazepines Scrn Urine Cocaine Screen Ur THC Screen A.phagocytophil DNA PCR B. divergens/MO-1 PCR Babesia duncani (PCR) Babesia microti DNA PCR Borrelia (PCR) Lyme Disease Antibody COVID-19 Source SARS-CoV-2 (PCR) E.chaffeensis DNA (PCR) E.ewingii/canis DNA PCR E. muris-like DNA (PCR) Add-On Test Request 02/11/22 02/11/22 19:07 19:07 WBC 11.00 H RBC 4.35 L Hgb 12.4 L Hct 37.6 L MCV 86 MCH 28.5 MCHC 33.0 RDW 14.7 H Plt Count 282 MPV 8.5 Immature Gran % 0.5 Neutrophils % 73.9 Lymphocytes % 18.3 Monocytes % 5.9 Eosinophils % 1.0 Basophils % 0.4 Nucleated RBC % 0.0 Absolute Neutrophils 8.13 H Absolute Lymphocytes 2.01 Absolute Monocytes 0.65 Absolute Eosinophils 0.11 Absolute Basophils 0.04 ESR Sodium 138 Potassium 3.8 Chloride 102 Carbon Dioxide 28.7 Anion Gap 7.3 BUN 16 Creatinine 0.7 Estimated GFR/1.73 m2 >= 60.00 Glucose 92 Hemoglobin A1c Calcium 9.3 Magnesium Total Bilirubin 0.5 AST 29 ALT 53 Alkaline Phosphatase 72 Troponin I C-Reactive Protein Total Protein 7.5 Albumin 3.8 Triglycerides Total Cholesterol LDL Cholesterol, Calc HDL Cholesterol Procalcitonin Urine Color Urine Clarity Urine pH Ur Specific [place] Urine Protein Urine Ketones Urine Blood Urine Nitrite Urine Bilirubin Urine Urobilinogen Ur Leukocyte Esterase Urine Glucose Urine Opiates Screen Urine Methadone Screen Ur Barbiturates Screen Ur Tricyclics Screen Ur Amphetamines Screen U Benzodiazepines Scrn Urine Cocaine Screen Ur THC Screen A.phagocytophil DNA PCR B. divergens/MO-1 PCR Babesia duncani (PCR) Babesia microti DNA PCR Borrelia (PCR) Lyme Disease Antibody COVID-19 Source SARS-CoV-2 (PCR) E.chaffeensis DNA (PCR) E.ewingii/canis DNA PCR E. muris-like DNA (PCR) Add-On Test Request PFSH All Active Problems (Updated 02/12/22 @ 02:21 by Yu Ross MD) Discharge planning issues (Acute) DVT prophylaxis (Acute) Transient visual loss of right eye (Acute) Morbid obesity with BMI of 60.0-69.9, adult (Chronic) Chest pain (Acute) Chill (Acute) Nausea & vomiting (Acute) Hx-TIA (transient ischemic attack) (Acute) Amaurosis fugax of right eye (Acute) Medical History (Updated 02/12/22 @ 02:21 by Yu Ross MD) Anxiety disorder Hypertension SUDHA on CPAP Panic attacks Surgical History (Updated 02/12/22 @ 02:09 by Yu Ross MD) S/P cholecystectomy Family History (Updated 02/12/22 @ 02:11 by Yu Ross MD) Father Heart disease Paternal Uncle Heart disease Paternal Grandmother Stroke Social History Smoking/Tobacco Use Status: Never Smoking risk assessment performed?: Yes Alcohol Intake: current Alcohol Intake frequency: a few times a month Drug use: Never Substance use type: does not use Do you feel safe at home: Yes Do you feel safe in your relationship?: Yes
--- NOTE | 2022-02-12 14:08 | PDOC.CMDIS ---
- If Service Date Differs Date of service: 02/12/22 Time of Service: 13:00 LACE Index Scoring Tool - Questions: Length of Stay (in days): 1 Acuity (Admit via E.D.?): Yes E.D. Visits: 2 - Answers: Total Score: 6 Risk of Readmission: Low Risk Care Management Discharge Reason for Hospitalization: Transient visual loss of right eye, Hypertension Discharge Plan: René is discharged home via private vehicle with brother. Pt will call [facility] on Tuesday to make a follow up appointment.
[2022-02-15 11:35] LABS: Lyme Ab w Rflx to Lyme Confirm Negative (Negative)
[2022-02-16 22:24] LABS: Anaplasma phagocytophilum Negative (Negative); B. miyamotoi PCR Negative (Negative); Babesia divergens/MO-1 Negative (Negative); Babesia duncani Negative (Negative); Babesia microti Negative (Negative); Ehrlichia chaffeensis Negative (Negative); Ehrlichia ewingii/canis Negative (Negative); Ehrlichia muris eauclairensis Negative (Negative)
== END 2022-02-12 13:16 | disposition home or self-care (01) ==
LOC: ER 23:37 → MS 02-12 01:04
PROVIDERS: Student in an Organized Health Care Education/Training Program; Admitting Provider Internal Medicine; Emergency Provider Physician Assistant; PCP Nurse Practitioner Family; Visit Provider Internal Medicine
DX: H53.121 Transient visual loss, right eye (principal); I10 Essential (primary) hypertension; G47.33 Obstructive sleep apnea (adult) (pediatric); E66.01 Morbid (severe) obesity due to excess calories; Z68.44 Body mass index [BMI] 60.0-69.9, adult; Z20.822 Contact with and (suspected) exposure to COVID-19; F41.0 Panic disorder [episodic paroxysmal anxiety]; Z79.899 Other long term (current) drug therapy; R20.2 Paresthesia of skin; R51.9 Headache, unspecified; E78.5 Hyperlipidemia, unspecified
CPT/HCPCS: 36415; 70496; 70498; 80048; 80053; 80061; 80307; 84145; 85652; 87635; 87798; 93005; 96360; 96361; 96372; 99285; J1650; 70551; 81003; 83036; 83735; 84484; 85025; 86140; 86618; 93010; 99235; 99284; G0378; J3490

== ENCOUNTER 2022-04-22 15:09 | Outpatient (REF) | payer MEDICAID, SELFPAY ==
[2022-04-22 18:12] LABS: Abs Immature Grans 0.03 10^3/uL (0.0-0.06); Absolute Basophil Count 0.05 10^3/uL (0.0-0.2); Absolute Eosinophil Count 0.12 10^3/uL (0.0-0.7); Absolute Lymphocyte Count 1.94 10^3/uL (1.2-3.4); Absolute Monocyte Count 0.53 10^3/uL (0.1-0.8); Absolute Neutrophil Count 5.64 10^3/uL (1.2-6.7); Basophils % 0.6; Eosinophils % 1.4; HGB 12.8 g/dL (13.5-17.5); Immature Grans % 0.4; Lymphocytes % 23.3; MCH 28.4 pg (27.0-33.0); MCHC 32.8 % (32.0-36.0); MCV 87 fL (80-95); MPV 9.3 fL (8.0-11.0); Monocytes % 6.4; Neutrophils % 67.9; Platelet Count 315 10^3/uL (130-400); RDW 14.2 % (11.8-14.1); RDW-SD 44.2 fL; WBC 8.31 10^3/uL (4.4-10.8)
[2022-04-22 18:24] LABS: Iron 63 ug/dL (65-175); Total Iron Binding Capacity 317 ug/dL (250-450); Transferrin Sat 20 % (20-55)
[2022-04-22 18:36] LABS: Ferritin 193 ng/mL (26-388)
== END 2022-04-22 15:10 | disposition home or self-care (01) ==
LOC: NCHCN 15:09
PROVIDERS: PCP Nurse Practitioner Family; Visit Provider Nurse Practitioner Family
DX: I10 Essential (primary) hypertension (principal); E66.01 Morbid (severe) obesity due to excess calories; R53.83 Other fatigue; D50.9 Iron deficiency anemia, unspecified; K76.0 Fatty (change of) liver, not elsewhere classified; F41.1 Generalized anxiety disorder
CPT/HCPCS: 82728; 83540; 83550; 85025

== ENCOUNTER 2022-08-23 12:11 | Outpatient (REF) | payer MEDICAID, SELFPAY ==
[2022-08-23 14:52] LABS: Abs Immature Grans 0.03 10^3/uL (0.0-0.06); Absolute Basophil Count 0.05 10^3/uL (0.0-0.2); Absolute Eosinophil Count 0.08 10^3/uL (0.0-0.7); Absolute Lymphocyte Count 1.69 10^3/uL (1.2-3.4); Absolute Neutrophil Count 5.12 10^3/uL (1.2-6.7); Basophils % 0.7; Eosinophils % 1.1; HCT 39.6 % (40.0-50.0); HGB 13.2 g/dL (13.5-17.5); Immature Grans % 0.4; Lymphocytes % 22.6; MCH 28.4 pg (27.0-33.0); MCHC 33.3 % (32.0-36.0); MCV 85 fL (80-95); MPV 9.1 fL (8.0-11.0); Monocytes % 6.7; Neutrophils % 68.5; Platelet Count 311 10^3/uL (130-400); RBC 4.64 10^6/uL (4.36-5.78); RDW 13.7 % (11.8-14.1); RDW-SD 42.2 fL; WBC 7.47 10^3/uL (4.4-10.8)
[2022-08-23 15:11] LABS: Iron 58 ug/dL (65-175); Total Iron Binding Capacity 311 ug/dL (250-450); Transferrin Sat 19 % (20-55)
[2022-08-23 15:17] LABS: ALT 46 U/L (16-63); AST 20 U/L (15-37); Albumin 3.7 g/dL (3.4-5.0); Alkaline Phosphatase 74 U/L (46-116); Anion Gap 6.7 mmol/L (3-11); BUN 16 mg/dL (7-18); Bilirubin, Total 0.3 mg/dL (0.2-1.0); CO2 29.3 mmol/L (21.0-32.0); CREATININE 0.7 mg/dL (0.70-1.30); Calcium 9.3 mg/dL (8.5-10.1); Chloride 104 mmol/L (98-107); Estimated GFR 122.47 (mL/min/1.73m2); Ferritin 187 ng/mL (26-388); Glucose 105 mg/dL (74-106); Potassium 4.6 mmol/L (3.5-5.1); Sodium 140 mmol/L (136-145); Total Protein 6.9 g/dL (6.4-8.2)
== END 2022-08-23 12:12 | disposition home or self-care (01) ==
LOC: NCHCN 12:11
PROVIDERS: PCP Nurse Practitioner Family; Visit Provider Nurse Practitioner Family
DX: I10 Essential (primary) hypertension (principal); D64.9 Anemia, unspecified; D50.9 Iron deficiency anemia, unspecified; K76.0 Fatty (change of) liver, not elsewhere classified; E66.01 Morbid (severe) obesity due to excess calories
CPT/HCPCS: 80053; 82728; 83540; 83550; 85025

== ENCOUNTER 2022-10-19 10:01 | Outpatient (REF) | payer MEDICAID, SELFPAY ==
[2022-10-19 15:30] LABS: Abs Immature Grans 0.05 10^3/uL (0.0-0.06); Absolute Basophil Count 0.05 10^3/uL (0.0-0.2); Absolute Eosinophil Count 0.09 10^3/uL (0.0-0.7); Absolute Lymphocyte Count 1.95 10^3/uL (1.2-3.4); Absolute Monocyte Count 0.62 10^3/uL (0.1-0.8); Absolute Neutrophil Count 5.55 10^3/uL (1.2-6.7); Basophils % 0.6; Eosinophils % 1.1; HCT 42.5 % (40.0-50.0); HGB 13.9 g/dL (13.5-17.5); Immature Grans % 0.6; Lymphocytes % 23.5; MCH 28.1 pg (27.0-33.0); MCHC 32.7 % (32.0-36.0); MCV 86 fL (80-95); MPV 9.2 fL (8.0-11.0); Monocytes % 7.5; Neutrophils % 66.7; Platelet Count 314 10^3/uL (130-400); RBC 4.95 10^6/uL (4.36-5.78); RDW-SD 42.9 fL; WBC 8.31 10^3/uL (4.4-10.8)
[2022-10-19 15:35] LABS: Reticulocyte 2.4 % (0.5-2.4)
[2022-10-19 16:41] LABS: Hemoglobin A1C 5.6 % (<5.7)
[2022-10-19 16:55] LABS: ALT 47 U/L (16-63); AST 17 U/L (15-37); Albumin 3.5 g/dL (3.4-5.0); Alkaline Phosphatase 81 U/L (46-116); BUN 14 mg/dL (7-18); Bilirubin, Total 0.2 mg/dL (0.2-1.0); CREATININE 0.8 mg/dL (0.70-1.30); Calcium 8.7 mg/dL (8.5-10.1); Calculated LDL 113 mg/dL (<100); Chloride 106 mmol/L (98-107); Cholesterol 188 mg/dL (<200); Estimated GFR 117.63 (mL/min/1.73m2); Glucose 98 mg/dL (74-106); HDL Cholesterol 41 mg/dL (40-60); Magnesium 2.1 mg/dL (1.8-2.4); Potassium 4.8 mmol/L (3.5-5.1); Sodium 141 mmol/L (136-145); TSH (W/Ref FT4) 2.52 uIU/mL (0.36-3.74); Triglyceride 170 mg/dL (<150); Vitamin B12 503 pg/mL (193-986)
[2022-10-19 17:47] LABS: LDH 168 U/L (85-227)
[2022-10-19 18:28] LABS: Vitamin D 25 Total 15.2 ng/mL (30-100)
[2022-10-20 09:43] LABS: Haptoglobin 185 mg/dL (32-197); IgA 348 mg/dL (85-499); IgG 913 mg/dL (610-1616); IgM 52 mg/dL (35-242); Kappa Free Light Chain 1.98 mg/dL (0.33-1.94); Lambda Free Light Chain 1.35 mg/dL (0.57-2.63)
[2022-10-20 10:28] LABS: HIV-1/2 Ag & Ab Screen Negative (Negative)
[2022-10-20 13:30] LABS: Albumin 56.2 % (55.8-66.1); Albumin g/dL 3.8 g/dL (3.6-5.2); Total Protein 6.8 g/dL (6.3-8.2)
[2022-10-20 13:34] LABS: Chlamydia Result Negative (Negative); GC Result Negative (Negative)
[2022-10-21 14:23] LABS: Syphilis Serology (RPR) Negative (Negative)
== END 2022-10-19 10:02 | disposition home or self-care (01) ==
LOC: LBN 10:01
PROVIDERS: Nurse Practitioner Family; PCP Nurse Practitioner Family; Visit Provider Internal Medicine Hematology & Oncology
DX: D64.9 Anemia, unspecified (principal)
CPT/HCPCS: 80053; 80061; 82306; 82784; 87389; 87491; 87591; 82607; 82746; 83010; 83036; 83615; 83735; 83883; 84165; 84443; 85025; 85045; 86592

== ENCOUNTER 2023-06-17 13:58 | Emergency (ER) | payer MEDICAID, SELFPAY ==
[2023-06-17 14:04] VITALS: BP 163/105; PULSE 77; RESP 20; TEMP 37.1; O2SAT 99
--- NOTE | 2023-06-17 14:15 | DI.RAD_ITS ---
Exam(s) XR CHEST 2V PA LATERAL EXAM: XR CHEST 2V PA LATERAL CLINICAL HISTORY: cough x 2 weeks. TECHNIQUE: 2D digital imaging was performed. COMPARISON: CR XR CHEST 2V PA LATERAL from 10/29/2020 FINDINGS: 2 views: Heart size is normal. The mediastinum is not widened. Lungs are clear. No infiltrates nor pleural effusions. IMPRESSION: No acute pulmonary findings. DATA REPOSITORY: RADIATION DOSE DELIVERED:
--- NOTE | 2023-06-17 14:25 | ED.GENADUL_ITS ---
Discharge Plan Disposition Patient Disposition: Home Condition: Good Discharge Details Clinical Impression: Upper respiratory infection Primary Care Provider: Radha Wayne ED Provider: Nelly Dietz Home Meds and New Rx's Prescriptions: New albuterol sulfate 90 mcg/actuation aerosol powdr breath activated 2 inh inhalation Q6H PRNQty: 1 0RF No Action acetylcysteine [NAC] 600 mg capsule 600 mg PO DAILY topiramate [Topamax] 25 mg tablet 50 mg PO DAILY buspirone 10 mg tablet 10 mg PO BID prazosin 1 mg capsule 2 mg PO QPM metformin 500 mg tablet 2,000 mg PO DAILY omeprazole 20 mg capsule,delayed release(DR/EC) 20 mg PO DAILY melatonin 3 mg capsule 3 mg PO HS PRN loratadine [Claritin] 10 mg tablet 10 mg PO DAILY lorazepam 0.5 MG tablet 0.5 mg PO DAILY PRN Patient Comments: havent taken in two weeks venlafaxine 75 mg capsule,extended release 24hr See Rx Instructions .ROUTE .COMPLEX Patient Comments: TAKE ONE CAPSULE BY MOUTH EVERY DAY WITH ONE 150MG DAILY Rx Instructions: Take 75mg with 150mg totaling 225mg PO daily venlafaxine 150 mg capsule,extended release 24hr See Rx Instructions .ROUTE .COMPLEX Patient Comments: TAKE ONE CAPSULE BY MOUTH EVERY DAY WITH 75MG CAPSULE Rx Instructions: Take 75mg with 150mg totaling 225mg PO daily hydroxyzine HCl 50 mg tablet 50 mg PO BID Patient Comments: TAKE ONE HALF TO ONE TABLET BY MOUTH TWO TIMES A DAY buspirone 10 mg tablet 5 mg PO BID Patient Comments: TAKE 1/2 TABLET BY MOUTH TWO TIMES A DAY ibuprofen 200 mg Tablet 400 mg PO TID cholecalciferol (vitamin D3) 1,250 mcg (50,000 unit) capsule See Rx Instructions .ROUTE .COMPLEX Patient Comments: TAKE ONE TABLET BY MOUTH WEEKLY Rx Instructions: 1,250 mcg orally weekly propranolol 10 mg tablet 10 mg PO BID Patient Comments: TAKE ONE TABLET BY MOUTH TWICE A DAY ferrous sulfate [FeroSul] 325 mg (65 mg iron) tablet 325 mg PO DAILY Patient Comments: TAKE 1 TABLET BY MOUTH ONCE DAILY ON TUESDAY, TUESDAY, AND TUESDAY DIRECTED. metformin 500 mg tablet extended release 24 hr 4 tab PO DAILY acetylcysteine 600 mg capsule 600 mg PO DAILY Patient Comments: TAKE 2 CAPSULES BY MOUTH TWICE DAILY, IN THE MORNING AND AFTERNOON/EARLY EVENING NEEDED FOR MOOD Victoza 3-Carlo 0.6 mg/0.1 mL (18 mg/3 mL) pen injector 1.8 mg SUBCUT DAILY Patient Comments: INJECT 1.8 MG SUBCUTANEOUSLY ONCE A DAY. Discharge Instructions Instructions: Upper Respiratory Infection (ED) Additional Instructions: Albuterol inhaler up to every 6 hours as needed for wheezing. Call your primary care doctor today to schedule an appointment to follow up on your visit here- please discuss your high blood pressure at this visit. Return to the emergency department for new or worsening symptoms including difficultly breathing, chest pain, feeling like you are going to pass out, or if you have any other concerns. Referrals: Radha Wayne [Primary Care Provider] - Medical Decision Making 37yo M with obesity, SUDHA, panic disorder, presenting for cough x 1 week. URI symptoms two weeks ago, rhinorhea, sinus pressure, now with one week of non- productive cough. Significant other with similar symptoms. Hypertensive on arrival, vital signs otherwise reassuring. No tachycardia or hypoxia to suggest pulmonary embolism; would not get dimer or CT. Not septic. Denies cardiac history or chest pain, low suspicion for acute coronary syndrome. No respiratory distress on exam, difficult to ascertain breath sounds 2/t body habitus, does report feeling wheezy. Will try albuterol neb. CXR independently reviewed, no focal pneumonia, pneumothorax, or pulmonary edema on my view, agree with radiology read below. Covid/flu swab negative. On reassessment he reports feeling much better, symptomatically improved. Instructed to follow up with PCP regarding HTN. Discharged home with prescription for albuterol inhaler; discharge instructions including return precautions were reviewed with patient who verbalized understanding. All ques tions were answered and they are in full agreement with the plan. Imaging Data Radiologic Study: Imaging: X-Ray Radiologist's impression: IMPRESSION: No acute pulmonary findings HPI General Mode of arrival: ambulatory . Date/Time Provider Initiated Documentation: 06/17/23 14:08 . Limitations to Documentation: no limitations . Information obtained by: patient . HPI Narrative: 37yo M with obesity, SUDHA, panic disorder, presenting for cough x 1 week. Two weeks ago developed URI symptoms including rhinnoreha and sinus pressure, these have since resolved but he now has a persistent non productive cough and wheezing. No diagnosis of asthma though he was used albuterol treatments before with respiratory infections. Significant other has similar symptoms and was diagnosed with bronchitis. Denies any cardiac history. He is otherwise in his usual state of health with no fevers, rash, nausea, vomiting, abdominal pain, chest pain, edema, or other concerns. Related Data Home Medications Medication Instructions Recorded Confirmed lorazepam 0.5 mg tablet 0.5 mg PO DAILY PRN 01/06/16 02/11/22 buspirone 10 mg tablet 5 mg PO BID 08/04/20 02/11/22 cholecalciferol (vitamin D3) 1,250 See Rx Instructions .Route .COMPLEX 08/04/20 02/11/22 mcg (50,000 unit) capsule hydroxyzine HCl 50 mg tablet 50 mg PO BID 08/04/20 07/10/21 ibuprofen 200 mg tablet 400 mg PO TID 08/04/20 02/11/22 venlafaxine 150 mg See Rx Instructions .Route .COMPLEX 08/04/20 07/10/21 capsule,extended release 24 hr venlafaxine 75 mg capsule,extended See Rx Instructions .Route .COMPLEX 08/04/20 02/11/22 release 24 hr propranolol 10 mg tablet 10 mg PO BID 10/29/20 02/11/22 acetylcysteine 600 mg capsule 600 mg PO DAILY 02/11/22 02/11/22 ferrous sulfate 325 mg (65 mg 325 mg PO DAILY 02/11/22 02/11/22 iron) tablet (FeroSul) liraglutide 0.6 mg/0.1 mL (18 mg/3 1.8 mg subcut DAILY 02/11/22 02/11/22 mL) subcutaneous pen injector (Victoza 3-Carlo) metformin 500 mg tablet,extended 4 tab PO DAILY 02/11/22 02/11/22 release 24 hr acetylcysteine 600 mg capsule (NAC) 600 mg PO DAILY 05/25/23 buspirone 10 mg tablet 10 mg PO BID 05/25/23 loratadine 10 mg tablet (Claritin) 10 mg PO DAILY 05/25/23 melatonin 3 mg capsule 3 mg PO HS PRN 05/25/23 metformin 500 mg tablet 2,000 mg PO DAILY 05/25/23 omeprazole 20 mg capsule,delayed 20 mg PO DAILY 05/25/23 release prazosin 1 mg capsule 2 mg PO QPM 05/25/23 topiramate 25 mg tablet (Topamax) 50 mg PO DAILY 05/25/23 albuterol sulfate 90 mcg/actuation 2 inh inhalation Q6H PRN #1 ea 06/17/23 breath activated powder inhaler Previous Rx's Medication Instructions Recorded albuterol sulfate 90 mcg/actuation 2 inh inhalation Q6H PRN #1 ea 06/17/23 breath activated powder inhaler Allergies Allergy/AdvReac Type Severity Reaction Status Date / Time trazodone AdvReac Intermediate Agitation Unverified 06/17/23 14:03 General Stated Complaint: RespSymp MARY: 3 Review of Systems Narrative: see HPI PFSH All Active Problems (Updated 06/17/23 @ 15:40 by Nelly Dietz MD) Upper respiratory infection (Acute) HOCM (hypertrophic obstructive cardiomyopathy) (Acute) 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) Renal cyst (Acute) Anemia (Chronic) Headache (Acute) Allergic rhinitis (Acute) Dyspepsia (Acute) Vitamin D deficiency (Acute) SUDHA (obstructive sleep apnea) (Chronic) Low back pain (Acute) Morbid obesity (Acute) Panic disorder (Acute) Transient visual loss of right eye (Acute) Morbid obesity with BMI of 60.0-69.9, adult (Chronic) Chest pain (Acute) Chill (Acute) Nausea & vomiting (Acute) Hx-TIA (transient ischemic attack) (Acute) Amaurosis fugax of right eye (Acute) Medical History (Updated 06/17/23 @ 15:40 by Nelly Dietz MD) Panic attacks SUDHA on CPAP Anxiety disorder Hypertension Surgical History (Updated 02/12/22 @ 02:09 by Yu Ross MD) S/P cholecystectomy Family History (Updated 02/12/22 @ 02:11 by Yu Ross MD) Father Heart disease Paternal Uncle Heart disease Paternal Grandmother Stroke Social History Smoking/Tobacco Use Status: Never Smoking risk assessment performed?: Yes Alcohol Intake: current Alcohol Intake frequency: a few times a month Drug use: Never Substance use type: does not use Do you feel safe at home: Yes Do you feel safe in your relationship?: Yes Exam Narrative Exam Narrative: General: Alert, well appearing, obese. Head: Normocephalic, atraumatic Neck: Trachea midline, Neck supple. Cardiac: RRR, no murmurs appreciated Resp: Distant breath sounds. Speaking in 7-8 word sentences. No increased work of breathing. Abd: Non-distended Extremities: No deformities. No peripheral edema. Neurologic: GCS 15. Moves all extremities freely against gravity Course Vital Signs Vital signs: Vital Signs Temperature 37.1 C 06/17/23 14:04 Pulse 77 06/17/23 14:04 Respiratory Rate 20 06/17/23 14:04 Blood Pressure 163/105 H 06/17/23 14:04 Pulse Oximetry 99 06/17/23 14:04 Temperature 37.1 C 06/17/23 14:04 Pulse 77 06/17/23 14:04 Respiratory Rate 20 06/17/23 14:04 Respiratory Effort Short of Breath 06/17/23 14:19 Blood Pressure 163/105 H 06/17/23 14:04 Blood Pressure Position Sitting 06/17/23 14:04 Pulse Oximetry 99 06/17/23 14:04 Oxygen Delivery Method Room Air 06/17/23 14:04 Oxygen Flow Rate 0 06/17/23 14:04
[2023-06-17] MEDS: Albuterol 2.5 MG/3 ML INH SOLN VIAL UPD (14:32)
[2023-06-17 15:46] VITALS: BP 176/108; PULSE 82; RESP 20; O2SAT 96
== END 2023-06-17 15:43 | disposition home or self-care (01) ==
PROVIDERS: Emergency Provider Student in an Organized Health Care Education/Training Program; PCP Nurse Practitioner Family
DX: J06.9 Acute upper respiratory infection, unspecified (principal); R05.9 Cough, unspecified
CPT/HCPCS: 87426; 94640; 99283; 71046; J7613

== ENCOUNTER 2023-08-30 14:17 | Outpatient (REF) | payer MEDICAID, SELFPAY ==
[2023-08-30 15:18] LABS: Bilirubin Negative (Negative); Blood Negative (Negative); Clarity Clear (Clear); Glucose Negative (Negative); Ketones Negative (Negative); Leukocyte Esterase Negative (Negative); Nitrite Negative (Negative); Specific Gravity 1.025 (1.005-1.025); Urobilinogen 0.2 mg/dL (Up to 0.2)
[2023-08-30 16:15] LABS: COMMENT (LAB VIEW ONLY) 180.97 mg/dL; Microalb ug/mg Crea 3.3 ug/mg Cr
== END 2023-08-30 14:18 | disposition home or self-care (01) ==
LOC: NCHCN 14:17
PROVIDERS: PCP Nurse Practitioner Family; Visit Provider Nurse Practitioner Family
DX: I10 Essential (primary) hypertension (principal)
CPT/HCPCS: 81003; 82043; 82570

== ENCOUNTER 2024-07-13 14:47 | Outpatient (REF) | payer MEDICAID, SELFPAY ==
--- OUTSIDE RECORDS SUMMARY | 2024-07-13 14:53 | XMS_ITS | Encounter Summary ---
Author Organization [facility] Address [address] [place] [address] Care Team Providers Care Sole Buffer Name Role Phone Pipo Frazier PA-C Primary Care Provider [phone] Keena Rosales APRN Primary Care Provider [phone] Encounter Details Date Type Department Care Team (Late st Contact Info) Description 08/12/2020 Lab Requisition [facility] Pathology & Laboratory Medicine - [address] [id number] Outr Resulting Lab, Provider Social History Tobacco Use Types Packs/Day Years Used Date Smoking Tobacco: Never Smokeless Tobacco: Never Alcohol Use Standard Drinks/Week Comments Yes 0 (1 standard drink = 0.6 oz pur e alcohol) occasionally Interpersonal Safety Answer Date Record ed Physically Hurt Never 02/11/2020 Verbally Threaten Not on file 02/11/2020 Sex and Gender Information Value Date Recorded Sex Assigned at Not on file Legal Sex Male 12:14 EST Gender Identity Male 10/05/2019 14:05 EDT Sexual Orientation Not on file documented as of this encounter Plan of Treatment Upcoming Encounters Date Type Department Care Team (Late st Contact Info) Description 10/02/2024 14:45 EDT Office Visit [facility] Urology - [address] [id number] Pipo Jane MD [address] [facility], [address] [place] [address] documented as of this encounter Procedures Procedure Name Priority Date/Time Associated Diagnosis Comments ZZCOVID-19 TEST [facility] PCR Today 08/12/2020 9:56 EST COVID-19 TESTING Routine 08/12/2020 9:56 EST documented in this encounter Results * COVID-19 TEST [facility] PCR (08/12/2020 9:56 EST) Swab ENTIRE NASOPHARYNX / Unknown 08/12/2020 9:56 EST 08/12/2020 20:15 EST us Provider Outr Resulting Lab MICROBIOLOGY - GENER AL ORDERABLES Final Result [facility] [address] [place] [id number] * COVID-19 TESTING (08/12/2020 9:56 EST) COVID-19 rt-PCR Result Negative Negative 08/13/2020 14:12 EST [facility] Comment: This test was developed and its performance characteristics determined by [facility]. It has not been cleared or approved by the US Food and Drug Administration. FDA does not require this test to go through premarket FDA review. This test is used for clinical purposes. It should not be regarded as investigational or for research. This laboratory is certified under the Clinical Laboratory Improvement Amendments (CLIA) as qualified to perform high complexity clinical laboratory testing. This test is based on the [facility] COVID-19 Emergency Use Authorization (EUA) assay, with minor modification as defined by the FDA Performed on the [employer] 7 Pro RT-PCR System. Negative results do not preclude 2019-nCoV infection and should not be used as the sole basis for treatment or other patient management decisions. Negative results must be combined with clinical observations, patient history, and epidemiological information. Performing Lab [facility] 08/13/2020 14:12 EST [facility] Swab 08/12/2020 9:56 EST 08/12/2020 20:15 EST us Provider Outr Resulting Lab MICROBIOLOGY - GENER AL ORDERABLES Final Result [facility] [address] [place] [address] documented in this encounter Visit Diagnoses Not on filedocumented in this encounter Additional Health Concerns Infection Onset Date Last Indicated Resolved Time COVID-19 03/25/2021 03/25/2021 04/14/2021 22:1 5 EDT documented as of this encounter Care Teams Sole Buffer Relationship Specialty Start Date End Date Pipo Frazier PA-C PCP - General 10/05/19 10/21/21 Keena Rosales APRN [address] [facility] [address] [place] [address] PCP - General 10/22/21 documented as of this encounter
--- OUTSIDE RECORDS SUMMARY | 2024-07-13 14:53 | XMS_ITS | Encounter Summary ---
Author Organization [facility] Address [address] [place] [address] Care Team Providers Care Educational Institution Curator Name Role Phone Keena Rosales APRN Primary Care Provider [phone] Reason for Referral * Radiology Services (Routine/Next Available) - Authorization Not Required Specialty Diagnoses / Procedures Referred By Catarinaac jordan Referred To Contact Diagnoses Fatty (change of) liver, not elsewhere classified Procedures CT ABDOMEN W CONTRAST Keena Rosales APRN [address] [address] Phone: tel: fax: [facility] Referral ID Status Reason Start Date Expiration Date Visits Requested Visits Authorized [id number] Authorization Not Required 08/24/2021 1 1 Reason for Visit * Radiology Services (Routine/Next Available) - Authorization Not Required Specialty Diagnoses / Procedures Referred By Contsaroj ortega Referred To Contact Diagnoses Fatty (change of) liver, not elsewhere classified Procedures CT ABDOMEN W CONTRAST Keena Rosales APRN [address] [facility] [address] [place] [address] Phone: tel: fax: [facility] Referral ID Status Reason Start Date Expiration Date Visits Requested Visits Authorized [id number] Authorization Not Required 08/24/2021 1 1 Encounter Details Date Type Department Care Team (Latest Contact Info) Description 10/22/2021 18:58 EDT - 10/22/2021 23:59 EDT Hospital Encounter [facility] Center Radiology CT - [address] [id number] Fatty (change of) liver, not elsewhere classified Discharge Disposition: Home or Self Care Social History Tobacco Use Types Packs/Day Years [...] on file documented as of this encounter Medications at Time of Discharge busPIRone (BUSPAR) 5 mg tablet Take 5 mg by mouth daily. cholecalciferol, Vitamin D3, (VITAMIN D) 1,000 unit tablet Take 5,000 Units by mouth once a week. hydrOXYzine (ATARAX) 25 mg tablet Take 25 mg by mouth daily. liraglutide (VICTOZA) 0.6 mg/0.1 mL (18 mg/3 mL) injectable pen Inject 1.8 mg into the skin daily. LORazepam (ATIVAN) 0.5 mg tablet Take 1 mg by mouth as needed for Anxiety. propranolol HCl (PROPRANOLOL ORAL) Take by mouth. venlafaxine HCl (VENLAFAXINE ORAL) Take 325 mg by mouth daily. documented as of this encounter Discharge Disposition Disposition Code Departure Means Destination Home or Self Care documented in this encounter Plan of Treatment Upcoming Encounters Date Type Department Care Team (Late st Contact Info) Description 10/02/2024 14:45 EDT Office Visit [facility] Urology - [address] [id number] Pipo Jane MD [address] [place] [address], [address] [place] [id number] documented as of this encounter Procedures Procedure Name Priority Date/Time Associated Diagnosis Comments CT ABDOMEN (ONLY) W CONTRAST Routine 10/22/2021 19:54 EDT Fatty (change of) liver, not elsewhere classified documented in this encounter Results * CT ABDOMEN W CONTRAST (10/22/2021 19:54 EDT) Anatomical Region Laterality Modality Body, Abdomen Computed Tomogra phy 10/23/2021 10:5 5 EDT Impressions 10/23/2021 10:55 EDT 1. 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 2. ??Early degenerative changes from T10 through T12. 3. ??Prior cholecystectomy. I have personally reviewed the images and the above interpretation and agree with the findings. Narrative 10/23/2021 10:[address] ABDOMEN W CONTRAST ??10/22/2021 7:30 PM Signs and Symptoms/Comments: ?? Liver steatosis Technique: CT of the abdomen was performed following the administration intravenous contrast; coronal and sagittal multiplanar reconstructions generated. Comparison: None relevant Findings: Lower chest: Clear. Hepatobiliary: The liver is diffusely hypoattenuating with a mean density of 24 Hounsfield units (compared to 58 HU in the spleen) and there are regions of focal fatty sparing along the capsule. Incidental Alexander's lobe variant. There are no concerning hepatic lesions or biliary ductal dilatation. The gallbladder is absent. Spleen, pancreas, adrenal glands: No pancreatic ductal dilatation. The spleen and adrenals are normal. Kidneys, proximal ureters: The kidneys enhance symmetrically. Fluid density left renal cyst. No hydronephrosis or nephrolithiasis in the included urinary tract. Bowel: No bowel obstruction. Peritoneal cavity: No free air or fluid. Lymphovascular: The aorta is nonaneurysmal. No enlarged lymph nodes. Abdominal wall: There is a small fat-containing umbilical hernia with a neck measuring 4.3 cm. Musculoskeletal: There are greater than expected degenerative changes at T10- T12. No concerning osseous lesions. Aircraft Engine Mechanic Supervisor: No additional findings. Procedure Note Prashant Frazier MD - 10/23/2021 CT ABDOMEN W CONTRAST 10/22/2021 7:30 PM Signs and Symptoms/Comments: Liver steatosis Technique: CT of the abdomen was performed following the administration intravenouscontrast; coronal and sagittal multiplanar reconstructions generated. Comparison: None relevant Findings: Lower chest: Clear. Hepatobiliary: The liver is diffusely hypoattenuating with a mean densityof 24 Hounsfield units (compared to 58 HU in the spleen) and there areregions of focal fatty sparing along the capsule. Incidental Alexander's lobevariant. There are no concerning hepatic lesions or biliary ductaldilatation. The gallbladder is absent. Spleen, pancreas, adrenal glands: No pancreatic ductal dilatation. Thespleen and adrenals are normal. Kidneys, proximal ureters: The kidneys enhance symmetrically. Fluiddensity left renal cyst. No hydronephrosis or nephrolithiasis in theincluded urinary tract. Bowel: No bowel obstruction. Peritoneal cavity: No free air or fluid. Lymphovascular: The aorta is nonaneurysmal. No enlarged lymph nodes. Abdominal wall: There is a small fat-containing umbilical hernia with aneck measuring 4.3 cm. Musculoskeletal: There are greater than expected degenerative changes [id number]. No concerning osseous lesions. Aircraft Engine Mechanic Supervisor: No additional findings. IMPRESSION 1. 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 2. Early degenerative changes from T10 through T12. 3. Prior cholecystectomy. I have personally reviewed the images and the above interpretation andagree with the findings. Keena Rosales APRN IMG CT ORDERABLES Final R esult documented in this encounter Visit Diagnoses Diagnosis Fatty (change of) liver, not elsewhere classified documented in this encounter Administered Medications Inactive Administered Medications - up to 3 most recent administrations Medication Order MAR Action Action Date Dose Rate Site iohexoL (OMNIPAQUE 350) solution 100 mL 100 mL, intravenous, Once in imaging, 1 dose, Starting on Lashae 10/22/21 at 1936, Until Lashae 10/22/21 at 1955, Routine, Imaging Protocol Orders Given 10/22/2021 19:55 EDT 98 mL documented in this encounter Orders Medications Ordered That Luis ht Not Have Been Administered Count Last Ordered Date First Ordered Date iohexoL (OMNIPAQUE 350) solution 100 mL 1 0 10/22/2021 documented in this encounter Care Teams Educational Institution Curator Relationship Specialty Start Date End Date Keena Rosales, ACID CORRECTION HAND [address] [facility] [address] [place] [address] PCP - General 10/22/21 documented as of this encounter
--- OUTSIDE RECORDS SUMMARY | 2024-07-13 14:53 | XMS_ITS | Encounter Summary ---
Author Organization [facility] Address [address] [place] [address] Care Team Providers Care Scow Derrick Operator Name Role Phone Pipo Frazier PA-C Primary Care Provider [phone] [phone] Reason for Visit * Reason Comments Obesity televisit - pre op Encounter Details Date Type Department Care Team (Late st Contact Info) Description 08/29/2020 10:30 EST Telemedicine [facility] Bariatric Surgery [address] [address] Junior Stapleton PA-C 111 [facility], [facility], [address] [place] [address] Morbid obesity (HCC-CMS) (Primary Dx); BMI 60.0-69.9, adult (HCC-CMS) Social History Tobacco Use Types Packs/Day Years [...] on file documented as of this encounter Last Filed Vital Signs Vital Sign Reading Time Taken Comments Blood Pressure - - Pulse - - Temperature - - Respiratory Rate - - Oxygen Saturation - - Inhaled Oxygen Concentration - - Weight 220 kg (485 lb) 08/29/2020 1016 EST Height 181.6 cm (5' 11.5) 08/29/2020 1016 EST Body Mass Index 66.71 08/29/2020 1016 EST documented in this encounter Progress Notes * Raudel Carrillo, RD - 08/29/2020 1030 EST Medical Nutrition Evaluation-PRE OP NOTE Bariatric Clinic Nutrition Pre-op Visit Visit Number: 7 Desired surgery: Gastric Sleeve Subjective: I have been doing a lot of soups, green vegetables, boiled chicken, broccoli, cauliflower etc. Food logs: [facility] Meal pattern: 2-3 scrambled eggs/ yogurt and orange; Salad/onions/greens/ meat/cheese and hearty soups for supper consisting of meat/veggies Average caloric intake:trying to keep between 2100 to 2500 calories a day Meal composition: 30% CHO, 35% fats, 40% protein and 23 g fiber Snacking: [place] breeze Yogurt X 1-2 for work, small serving of nuts/cheese Fluid Intake:~96 oz a day Exercise: Gym 20-25 min X 4-5 times a week Objective: Weight: 485 lbs Weight loss from last visit: -7 lbs Total weight loss: Weight loss goal: Total Loss in lbs (Weight from Initial Consult - Today's Weight): 1.2 lbs Approximately 48 lbs Surgery Date: Significant Medications and Supplements:MVM; Vit D weekly Assessment: Patient has made progress towards lifestyle changes Comments: Oscar reports cutting back bread and including healthy carbs like yogurt. He typicallyeats the same meals every day. Suggested exchanging chicken with lean turkey or fish and to add second vegetable at lunch and supper. Suggested roasting vegetables and adding them to his salad or stews. Encouraged trying beets as he has never tried them. Congratulated him on his efforts to lose 7 lbs this month. He completed his blended diet menus and will e-mail them to RD. Plan: Diet Goals: Keep food records, Calorie goal ~2500 and Increase fruit and vegetables Exercise Goals: Increase time to 150 min a week(add extra walks as able) Weight Loss Goal: Approximately 48 lbs Weight Loss Remaining to Goal: Approximately 47.8 lbs Reviewed: Food/Activity Record(verbal report) Next Visit: Pre-op follow-up visit * Junior Stapleton PA-C - 08/29/2020 1030 EST 08/29/2020 SUBJECTIVE: René returns to our office today for continued medically supervised weight loss inpreparation for laparoscopic sleeve gastrectomy surgery. He is a 35 y.o. 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 His comorbidities include anxiety and obstructive sleep apnea. Otherwise, he denies any changes to his medical history or medications since his previous visit. He has attended both classes René met with our program dietitian to review preoperative dietary recommendations. I consulted with the dietitian following her visit with the patient and agree with her findings and recommendations. OBJECTIVE: On physical examination today, his Ht 181.6 cm (71.5) Wt (!) 220 kg (485 lb) BMI 66.71 kg/m?? and Body mass index is 66.71 kg/m??.. ASSESSMENT AND PLAN: René will return to our office in a few weeks for continued medically-supervised weight loss in preparation for surgery. He understands that: He has lost 2 of 48 pounds (7 this month), cut back on his carbs and eating more vegetables, eating good amount of protein. Going to gym for 20-25 minutes 4-5 times per week, mostly treadmill. Back on 50K units vit D as his D was still low on recheck (in the 20s?). He had a CT scan which showed a fatty liver recently. This was a telemedicine health visit by telephone due to the global health crisis with Covid 19. I spent a total of 6 minutes with René Wayne today as described in the progress note. Junior Stapleton PA-C documented in this encounter Plan of Treatment Upcoming Encounters Date Type Department Care Team (Late st Contact Info) Description 10/02/2024 14:45 EDT Office Visit [facility] Urology [address] [address] Pipo Jane MD 111 [facility], [address] [place] [phone] documented as of this encounter Visit Diagnoses Diagnosis Morbid obesity ([facility])- Primary Morbid obesity BMI 60.0-69.9, adult ([facility]) Body Mass Index 60.0-69.9, adult documented in this encounter Historical Medications * This list may reflect changes made after this encounter. cholecalciferol, Vitamin D3, (VITAMIN D) 1,000 unit tablet Take 5,000 Units by mouth once a week. added in this encounter Care Teams Scow Derrick Operator Relationship Specialty Start Date End Date Pipo Frazier, RAFAEL PCP - General 10/05/19 10/21/21 documented as of this encounter
--- OUTSIDE RECORDS SUMMARY | 2024-07-13 14:53 | XMS_ITS | Encounter Summary ---
Author Organization [facility] Address [address] [place] [address] Care Team Providers Care Stove Mechanic Name Role Phone Pipo Frazier PA-C Primary Care Provider [phone] Reason for Visit * Reason Onset Date Comments Appointment Related 07/16/2021 Encounter Details Date Type Department Care Team (Late st Contact Info) Description 07/16/2021 Telephone [facility] Bariatric Surgery - [address] [address] Junior Stapleton PA-C 111 [facility], [address] [place] [address] Appointment Related Social History Tobacco Use Types Packs/Day Years [...] on file documented as of this encounter Miscellaneous Notes * Telephone Encounter - Dali Mora - 07/16/2021 1011 EST Left message for Oscar requesting return call to clinic regarding rescheduling appointment. documented in this encounter Plan of Treatment Upcoming Encounters Date Type Department Care Team (Late st Contact Info) Description 10/02/2024 14:45 EDT Office Visit [facility] Urology - [address] [id number] Pipo Jane MD 111 [facility], [address] [place] [address] documented as of this encounter Visit Diagnoses Not on filedocumented in this encounter Care Teams Stove Mechanic Relationship Specialty Start Date End Date Pipo Frazier PA-C PCP - General 10/05/19 10/21/21 documented as of this encounter
--- OUTSIDE RECORDS SUMMARY | 2024-07-13 14:53 | XMS_ITS | Encounter Summary ---
Author Organization [facility] Address [address] [place] [address] Care Team Providers Care Precision Instrument Maker And Repairer Name Role Phone Keena Rosales APRN Primary Care Provider [phone] [phone] Reason for Visit * Reason Onset Date Comments Appointment Related 04/28/2022 Encounter Details Date Type Department Care Team (Late st Contact Info) Description 04/28/2022 Telephone [facility] Bariatric Surgery [address] [address] Junior Stapleton, JEDC 111 [facility], [facility] [address] [place] [address] Appointment Related Social History Tobacco [...] encounter Miscellaneous Notes * Telephone Encounter - Carlton Correa - 04/28/2022 0918 EDT Patient cancelled again today and his voicemail is full so I sent him an email and asked him to return my call. Please transfer him to me if he calls the call center [phone]. CARLTON CORREA MA 04/28/2022 9:19 documented in this encounter Plan of Treatment Upcoming Encounters Date Type Department Care Team (Late st Contact Info) Description 10/02/2024 14:45 EDT Office Visit [facility] Urology - [address] [address] Pipo Jane MD 111 [facility], [address] [place] [address] documented as of this encounter Visit Diagnoses Not on filedocumented in this encounter Care Teams Precision Instrument Maker And Repairer Relationship Specialty Start Date End Date Keena Rosales APRN [address] [place] [address] PCP - General 10/22/21 documented as of this encounter
--- OUTSIDE RECORDS SUMMARY | 2024-07-13 14:53 | XMS_ITS | Encounter Summary ---
Author Organization [facility] Address [address] [place] [address] Care Team Providers Care Slitter Helper Name Role Phone Pipo Frazier PA-C Primary Care Provider [phone] [phone] Reason for Visit * Reason Comments Obesity Encounter Details Date Type Department Care Team (Late st Contact Info) Description 07/25/2020 9:45 EST Telemedicine [facility] Bariatric Surgery [facility] [address] [place] [address] Junior Stapleton PA-C 111 [facility], [facility], [address] [place] [address] Morbid obesity (HCC-CMS) (Primary Dx); [...] - Inhaled Oxygen Concentration - - Weight 223.2 kg (492 lb) 07/25/2020 0945 EST Height 181.6 cm (5' 11.5) 07/25/2020 0945 EST Body Mass Index 67.67 07/25/2020 0945 EST documented in this encounter Progress Notes * Carla Chen - 07/25/2020 0945 EST Medical Nutrition Evaluation-PRE OP NOTE Bariatric Clinic Nutrition Pre-op Visit Visit Number: 6 Desired surgery: Gastric Sleeve Subjective: Food logs: Bobbi Meal pattern: 3 meals, some snacks Average caloric intake: 2500 Meal composition: B: 2-3 eggs with toast, yogurt or fruit L: salad with chicken or deli meat D: steak or chicken with broccoli/potato/corn and fruit Snacking: increase in holiday snacks, nuts and cheese Fluid Intake: not usually a problem, drinking mostly water Exercise: gym -cardio (treadmill, elliptical bike) 4 days per week for 20 min Objective: Weight: 492 lbs Weight loss from last visit: +6 lbs Total weight loss: Weight loss goal: Total Loss in lbs (Weight from Initial Consult - Today's Weight): -5.8 lbs Approximately 48 lbs (438 lbs) Surgery Date: Significant Medications and Supplements: MVI and Vit D 50,000 once per week Assessment: Patient has made progress towards lifestyle changes Comments: René believes his recent weight gain is due to holiday treats and increased snacking, decreased exercise. He has resumed his gym routine and the holiday treats are gone, so we expect his weight will begin to trend downward. His meals and snacks are healthy, but snacks can be high calorie choices (cheese, nuts) blas if eaten in large portions. We discussed pairing a nut/cheese with afruit/veggie for a satisfying balanced snack for fewer calories. Plan: Diet Goals: Include protein at least 3 times a day, Keep food records and Increase fruit and vegetables Exercise Goals: Increase time to 150 min /week Weight Loss Goal: Approximately 48 lbs (438 lbs for goal) Weight Loss Remaining to Goal: Approximately 54 lbs Reviewed: Food Log Not Reviewed Next Visit: Pre-op follow-up visit * Junior Stapleton PA-C - 07/25/2020 0945 EST 07/25/2020 SUBJECTIVE: René returns to our office today for continued medically supervised weight loss inpreparation for laparoscopic sleeve gastrectomy surgery. He is a 34 y.o. 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 His comorbidities [...] his Ht 181.6 cm (71.5) Wt (!) 223.2 kg (492 lb) BMI 67.67 kg/m?? and Body mass index is 67.67 kg/m??.. ASSESSMENT AND PLAN: René will return to our office in a few weeks for continued medically-supervised weight loss in preparation for surgery. He understands that: He is up from his initial weight, gained a few pounds over the holidays due to snacking, goal 48 pounds, vit d was deficient at 11 in April and his PCP put him on 50K units weekly for 3 months and is now on 400 units BID. This was a telemedicine health visit by telephone due to the global health crisis with Covid 19. I spent a total of 8 minutes with René Wayne today as described in the progress note. Junior Stapleton PA-C documented in this encounter Plan of Treatment Upcoming Encounters Date Type Department Care Team (Late st Contact Info) Description 10/02/2024 14:45 EDT Office Visit [facility] Urology - [address] [address] Pipo Jane MD [address] [place] [address], [address] [place] [address] documented as of this encounter Visit Diagnoses Diagnosis Morbid obesity ([facility])- Primary Morbid obesity BMI 60.0-69.9, adult ([facility]) Body Mass Index 60.0-69.9, adult documented in this encounter Care Teams Slitter Helper Relationship Specialty Start Date End Date Pipo Frazier PA-C PCP - General 10/05/19 10/21/21 documented as of this encounter
--- OUTSIDE RECORDS SUMMARY | 2024-07-13 14:53 | XMS_ITS | Encounter Summary ---
Author Organization [facility] Address [address] [place] [address] Care Team Providers Care Aligning Inspector Name Role Phone Bobby Keena Maurice ORONA Primary Care Provider [phone] [phone] Encounter Details Date Type Department Care Team (Late st Contact Info) Description 02/18/2024 Lab Requisition [facility] Pathology & Laboratory Medicine - [address] [address] Outr Resulting Lab, Provider Social History Tobacco Use Types Packs/Day Years Used Date Smoking Tobacco: Never Assessed Interpersonal Safety Answer Date Record ed Physically [...] Info) Description 10/02/2024 14:45 EDT Office Visit [facility] Urology - [address] [phone] Pipo Jane MD [address] [place] [address], [address] [place] [phone] documented as of this encounter Procedures Procedure Name Priority Date/Time Associated Diagnosis Comments INSULIN Routine 02/18/2024 9:18 EDT documented in this encounter Results * INSULIN (02/18/2024 9:18 EDT) Insulin 13.3 <29.0 uIU/mL 02/20/2024 10:24 EDT [facility] Comment: Displayed Reference Range applies to fasting specimens only. Blood VENOUS BLOOD / Unknown 02/18/2024 9:18 EDT 02/19/2024 15:47 EDT us Provider Outr Resulting Lab CHEMISTRY & BLOOD GA S ORDERABLES Final Result [facility] [address] [place] [address] documented in this encounter Visit Diagnoses Not on filedocumented in this encounter Care Teams Aligning Inspector Relationship Specialty Start Date End Date Keena Rosales APRN 26 [facility] [address] [place] [address] PCP - General 10/22/21 documented as of this encounter
--- OUTSIDE RECORDS SUMMARY | 2024-07-13 14:53 | XMS_ITS | Encounter Summary ---
Author Organization [facility] Address [address] [place] [address] Care Team Providers Care Hospital Insurance Representative Name Role Phone Pipo Frazier PA-C Primary Care Provider [phone] [phone] Reason for Visit * Reason Comments Obesity Pre op Encounter Details Date Type Department Care Team (Late st Contact Info) Description 04/27/2021 13:55 EDT Office Visit [facility] Bariatric Surgery [address] [address] Junior Stapleton PA-C 111 [facility], [address] [place] [address] Morbid obesity (HCC-CMS) (Primary Dx); BMI 70 and over, adult (HCC-CMS) (HCC) (HCC-CMS) Social History Tobacco Use Types Packs/Day [...] - Inhaled Oxygen Concentration - - Weight 231.4 kg (510 lb 3.2 oz) 04/27/2021 1359 EDT Height 181.6 cm (5' 11.5) 04/27/2021 1359 EDT Body Mass Index 70.17 04/27/2021 1359 EDT documented in this encounter Progress Notes * Raudel Carrillo RD - 04/27/2021 1355 EDT Medical Nutrition Evaluation-PRE OP NOTE Bariatric Clinic Nutrition Pre-op Visit Visit Number: 13 Desired surgery: Gastric Sleeve Subjective: Food logs: Humanoid Meal pattern: Eggs X 4, 50% lite cheese, 2 apples for breakfast; Skid Strapper Salad with 6 oz Chicken breast/2 cups blueberries for lunch and [place] burger 3 patties/ 2 tsp chandler, 2 oz 50% cheese and broccolifor supper Average caloric intake:2469 calories a day; Meal composition: 33% protein, 23% CHO and 44% fats; 35 g fiber a day Snacking: Roasted Almonds 3 oz Fluid Intake:Gallon or more water a day(Some [place]) Exercise: Cardio 20 min X 3 days a week at this gym Objective: Weight: 510.2 lbs Weight loss from last visit: +8.2 lbs Total weight loss: Weight loss goal: Total Loss in lbs (Weight from Initial Consult - Today's Weight): -24 lbs Approximately 48 lbs Surgery Date: Significant Medications and Supplements: MVM Assessment: Patient has made progress towards lifestyle changes Comments: Marquez has been on the Keto diet for past two months and feels his weight is at a plateau. He tends to eat the same foods on a daily basis. Suggested [place] oil chandler, choosing more egg whites,unsalted almonds. He is worried that his anxiety varies from month to month. His pain causes anxiety. He has been sleeping poorly. He tries to get enough sleep. Plan: Diet Goals: Keep food records and Add 5+ servings of vegetables each day; monitor salt intake from foods Exercise Goals: Maintain current exercise Weight Loss Goal: Approximately 48 lbs Weight Loss Remaining to Goal: Approximately 72 lbs Reviewed: Food/Activity Record Next Visit: Pre-op follow-up visit * Junior Stapleton PA-C - 04/27/2021 0144 EDT 04/27/2021 SUBJECTIVE: René returns to our office today for continued medically supervised weight loss inpreparation for laparoscopic sleeve gastrectomy surgery. He is a 35 y.o. 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 His comorbidities include anxiety and obstructive sleep apnea. Otherwise, he denies any changes to his medical history or medications since his previous visit. He has attended both classes. ?? Upper GI: Normal study. ??EGD: Stomach= Gastritis ?? Final Diagnosis A. ??STOMACH, BIOPSY: - ??Gastric fundic mucosa with no significant diagnostic abnormality. - ??Negative for Helicobacter pylori microorganisms on H&E stained sections.?? René met with our program dietitian to review preoperative dietary recommendations. I consulted with the dietitian following her visit with the patient and agree with her findings and recommendations. OBJECTIVE: On physical examination today, his Ht 181.6 cm (71.5) Wt (!) 231.4 kg (510 lb 3.2 oz) BMI 70.17 kg/m?? and Body mass index is 70.17 kg/m??.. ASSESSMENT AND PLAN: René will return to our office in a few weeks for continued medically-supervised weight loss in preparation for surgery. He understands that: He is up from his initial weight, gained 8 pounds this month, goal 48 pounds. Junior Stapleton PA-C documented in this encounter Plan of Treatment Upcoming Encounters Date Type Department Care Team (Late st Contact Info) Description 10/02/2024 14:45 EDT Office Visit [facility] Urology - [address] [address] Pipo Jane MD [address] [place] [address], [address] [place] [address] documented as of this encounter Visit Diagnoses Diagnosis Morbid obesity ([facility])- Primary Morbid obesity BMI 70 and over, adult ([facility]) Body Mass Index 70 and over, adult documented in this encounter Care Teams Hospital Insurance Representative Relationship Specialty Start Date End Date Pipo Frazier PA-C PCP - General 10/05/19 10/21/21 documented as of this encounter
--- OUTSIDE RECORDS SUMMARY | 2024-07-13 14:53 | XMS_ITS | Encounter Summary ---
Author Organization [facility] Address [address] [place] [address] Care Team Providers Care Auto Body Mechanic Apprentice Name Role Phone Pipo Frazier PA-C Primary Care Provider [phone] [phone] Reason for Visit * Reason Onset Date Comments Appointment Related 01/21/2021 Would Like t o Schedule Appt Encounter Details Date Type Department Care Team (Late st Contact Info) Description 01/21/2021 Telephone [facility] Bariatric Surgery [address] [address] Junior Stapleton PA-C 111 [facility], [address] [place] [address] Appointment Related (Would Like to Schedule Appt) Social History Tobacco Use Types Packs/Day Years [...] encounter Miscellaneous Notes * Telephone Encounter - Rosa Martinez RN - 01/21/2021 1035 EDT RN reviewed chart. Frequent cancellations not noted, however, patient has been inconsistent with appointments. Patient will need monthly visits to meet insurance requirements. RN spoke to the patientand reviewed attendance requirements, specifically monthly visits. Next two appointments scheduled. Patient verbalized understanding. All questions answered. * Telephone Encounter - Manoj Haq - 01/21/2021 0922 EDT Patient called to schedule appt documented in this encounter Plan of Treatment Upcoming Encounters Date Type Department Care Team (Late st Contact Info) Description 10/02/2024 14:45 EDT Office Visit [facility] Urology - [address] [address] Pipo Jane MD 111 [facility], [address] [place] [phone] documented as of this encounter Visit Diagnoses Not on filedocumented in this encounter Care Teams Auto Body Mechanic Apprentice Relationship Specialty Start Date End Date Pipo Frazier PA-C PCP - General 10/05/19 10/21/21 documented as of this encounter
--- OUTSIDE RECORDS SUMMARY | 2024-07-13 14:53 | XMS_ITS | Encounter Summary ---
Author Organization [facility] Address [address] [place] [address] Care Team Providers Care Housekeeping Room Attendant Name Role Phone Pipo Frazier PA-C Primary Care Provider +1 [phone] Reason for Visit * Reason Comments Obesity Pre op Encounter Details Date Type Department Care Team (Late st Contact Info) Description 02/23/2021 15:15 EDT Office Visit [facility] Bariatric Surgery [address] [address] Junior Stapleton PA-C 111 [facility], [address] [place] [address] Morbid obesity (HCC-CMS) (Primary Dx); [...] - Inhaled Oxygen Concentration - - Weight 229.8 kg (506 lb 9.6 oz) 02/23/2021 1532 EDT Height 181.6 cm (5' 11.5) 02/23/2021 1532 EDT Body Mass Index 69.68 02/23/2021 1532 EDT documented in this encounter Progress Notes * Junior Stapleton PA-C - 02/23/2021 1515 EDT 02/23/2021 SUBJECTIVE: René returns to our office today [...] his Ht 181.6 cm (71.5) Wt (!) 229.8 kg (506 lb 9.6 oz) BMI 69.68 kg/m?? and Body mass index is 69.68 kg/m??.. ASSESSMENT AND PLAN: René will return to our office in a few weeks for continued medically-supervised weight loss in preparation for surgery. He understands that: He is up from his initial weight, gained weight this month on vegan diet and now is doing low-carb which is working better for him,goal 48 pounds. Junior Stapleton PA-C * Raudel Carrillo, DANTE - 02/23/2021 1515 EDT Medical Nutrition Evaluation-PRE OP NOTE Bariatric Clinic Nutrition Pre-op Visit Visit Number: 10 Desired surgery: Gastric Sleeve Subjective: I tried the [employer] meals and ended up not having time to prepare the meals. I went on a Vegan diet for the past 2.5 months and that did not work for me. I am back on a low carb eating plan. Food logs:Nicoledevon(not reviewed); just started Meal pattern: Oatmeal/fruit or corn flakes/almond milk or tofu scramble for breakfast; Black beans/lettuce/salsa for lunch; Salad/nuts/fruit/raspberry salad dressing for supper Average caloric intake:unknown Meal composition: now on low carb diet; was on Vegan diet for 2.5 months Fluid Intake:~100 oz water a day Exercise: Gym or walking X 4 days a week Objective: Weight: 506.6 lbs Weight loss from last visit: +20.6 lbs Total weight loss: Weight loss goal: Total Loss in lbs (Weight from Initial Consult - Today's Weight): -20.4 lbs Approximately 48 lbs Surgery Date: Significant Medications and Supplements: vitamin D Assessment: Patient has made progress towards lifestyle changes Comments: Marquez has been trying to work on a diet that works for him. Advised he needs to include protein foods at all meals to avoid low protein intake. He feels the low carb diet is working for him now. He has not explored Intermittent fasting. Suggested 10 hour fasting time from 9 PM to 7 AM if he wishes to try to incorporate Intermittent fasting. Also encouraged regular meals balanced with lean protein and fiber rich foods( fruits, vegetables and complex carbs) at meal times to help him manage hunger while helping him lose weight. Reviewed blended diet menus and offered suggestions to meetprotein needs as he does not like soft texture foods. Plan: Diet Goals: Include protein at least 3 times a day, Keep food records and Increase fruit and vegetables Exercise Goals: Maintain current exercise; split exercise sessions into twice a day if pain/tolerance is an issue Weight Loss Goal: Approximately 48 lbs Weight Loss Remaining to Goal: Approximately 68.4 lbs Reviewed: Food Log Not Reviewed; Blended diet menus Next Visit: Pre-op follow-up visit documented in this encounter Plan of Treatment Upcoming Encounters Date Type Department Care Team (Late st Contact Info) Description 10/02/2024 14:45 EDT Office Visit [facility] Urology - [address] [id number] Pipo Jane MD 111 [facility], [address] [place] [address] documented as of this encounter Visit Diagnoses Diagnosis Morbid obesity ([facility])- Primary Morbid obesity BMI 60.0-69.9, adult ([facility]) Body Mass Index 60.0-69.9, adult documented in this encounter Care Teams Housekeeping Room Attendant Relationship Specialty Start Date End Date Pipo Frazier PA-C PCP - General 10/05/19 10/21/21 documented as of this encounter
--- OUTSIDE RECORDS SUMMARY | 2024-07-13 14:53 | XMS_ITS | Encounter Summary ---
Author Organization [facility] Address [address] [place] [address] Care Team Providers Care Desk Reporter Name Role Phone Bobby Keena Maurice ORONA Primary Care Provider +1 [phone] Reason for Visit * Reason Comments Obesity Pre op Encounter Details Date Type Department Care Team (Late st Contact Info) Description 11/25/2021 15:30 EDT Office Visit [facility] Bariatric Surgery [address] [address] Junior Stapleton, PA-C 111 [facility], [address] [place] [address] Morbid obesity (HCC-CMS) (Primary Dx); BMI 60.0-69.9, adult (HCC-CMS) (HCC) (HCC-CMS) Social History Tobacco [...] - Inhaled Oxygen Concentration - - Weight 227.3 kg (501 lb) 11/25/2021 1528 EDT Height 181.6 cm (5' 11.5) 11/25/2021 1528 EDT Body Mass Index 68.91 11/25/2021 1528 EDT documented in this encounter Progress Notes * Torri Mcmillan, DANTE - 11/25/2021 1530 EDT Medical Nutrition Evaluation-PRE OP NOTE Bariatric Clinic Nutrition Pre-op Visit Visit Number: 17 Desired surgery: Gastric Sleeve Subjective: Food logs: Butter Meal pattern: 14% protein, 78% carbs, fat 8%, 49 gm fiber Average caloric intake: ~1500 calories Meal composition: fruit at B; lunch; salad with black beans, supper: boiled cabbage/vegs, avocado, beans Snacking: berries, popcorn occasionally Fluid Intake: 80-96 oz water sometimes mixed with unsweet koolaid Exercise: 2 days of cardio at gym and weightlifting at gym 3x/wk x 30 min; [facility] x 20 min Objective: Weight: 501 lbs Weight loss from last visit: - 17.2 lbs Total weight loss: Weight loss goal: Total Loss in lbs (Weight from Initial Consult - Today's Weight): -14.8 lbs Approximately 48 lbs Surgery Date: Significant Medications and Supplements: Victoza, vitamin D, anxiety meds, iron pills Assessment: Patient has made progress towards lifestyle changes Comments: Cut out processed foods (d/cd his frozen meals, limiting oils, butter, bread, pasta); eating more whole foods, cooking more. Trying vegan diet. Lots of beans, vegs, fruit, some tofu. Per food records, high carb intake and low in protein, high fiber intake. High carbs may be all the fruit he's adding in. Having a lot more beans, trying out vegan. Cutting out nuts due to salt and calories. Plan: Diet Goals: Include protein at least 3 times a day and Keep food records, add in more beans, tofu, lean chicken (needs more protein) Exercise Goals: Maintain current exercise Weight Loss Goal: Approximately 48 lbs (or down to 438 lbs) Weight Loss Remaining to Goal: Approximately 63 lbs Reviewed: Food/Activity Record Next Visit: Pre-op follow-up visit, ?attend support group (reports he attended in 2019) * Junior Stapleton PA-C - 11/25/2021 1530 EDT 11/25/2021 SUBJECTIVE: René returns to our office today for continued medically supervised weight loss inpreparation for laparoscopic sleeve gastrectomy surgery. He is a 36 y.o. 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 His comorbidities include anxiety and obstructive sleep apnea. Otherwise, he denies any changes to his medical history or medications since his previous visit. He has attended both classes and needs support group. ?? Upper GI: Normal study. ??EGD: Stomach= [...] his Ht 181.6 cm (71.5) Wt (!) 227.3 kg (501 lb) BMI 68.91 kg/m?? and Body mass index is 68.91 kg/m??.. ASSESSMENT AND PLAN: René will return to our office in a few weeks for continued medically-supervised weight loss in preparation for surgery. He understands that: He is up from his initial weight, lost 17 pounds this month, goal 48 pounds.?He has been doing low carb diet and eating more fruits and veggies and minimal processed food this month, which also helps him decrease his sodium intake which had been too high. Junior Stapleton PA-C documented in this encounter Plan of Treatment Upcoming Encounters Date Type Department Care Team (Late st Contact Info) Description 10/02/2024 14:45 EDT Office Visit [facility] Urology - [facility] [address] [place] [address] Pipo Jane MD 111 [facility], [address] [place] [phone] documented as of this encounter Visit Diagnoses Diagnosis Morbid obesity ([facility])- Primary Morbid obesity BMI 60.0-69.9, adult ([facility]) Body Mass Index 60.0-69.9, adult documented in this encounter Care Teams Desk Reporter Relationship Specialty Start Date End Date Keena Rosales APRN [address] [place] [address] PCP - General 10/22/21 documented as of this encounter
--- OUTSIDE RECORDS SUMMARY | 2024-07-13 14:53 | XMS_ITS | Encounter Summary ---
Author Organization [facility] Address [address] [place] [address] Care Team Providers Care Mortar Worker Name Role Phone Ppio Frazier PA-C Primary Care Provider [phone] [phone] Keena Rosales APRN Primary Care Provider +1 -[phone] Reason for Visit * Reason Onset Date Comments Appointment Related 12/03/2020 Encounter Details Date Type Department Care Team (Late st Contact Info) Description 12/03/2020 Telephone [facility] General Surgery - [facility] [address] [place], [place] [phone] Junior Stapleton PA-C 111 [facility], [address] [place] [address] Appointment Related Social History Tobacco [...] encounter Miscellaneous Notes * Telephone Encounter - Sabrina Bauer - 12/03/2020 2330 EDT René called to cancel appointment with Junior Stapleton PA-C on 12/04/20 at 1:15pm due to transportation issue. Patient would like a call back to reschedule? Patient will call back to reschedule/ documented in this encounter Plan of Treatment Upcoming Encounters Date Type Department Care Team (Late st Contact Info) Description 10/02/2024 14:45 EDT Office Visit [facility] Urology - [address] [address] Pipo Jane MD 111 [facility], [address] [place] [phone] documented as of this encounter Visit Diagnoses Not on filedocumented in this encounter Additional Health Concerns Infection Onset Date Last Indicated Resolved Time COVID-19 03/25/2021 03/25/2021 04/14/2021 22:1 5 EDT documented as of this encounter Care Teams Mortar Worker Relationship Specialty Start Date End Date Pipo Frazier PA-C PCP - General 10/05/19 10/21/21 Keena Rosales APRN [address] [place] [address] PCP - General 10/22/21 documented as of this encounter
--- OUTSIDE RECORDS SUMMARY | 2024-07-13 14:53 | XMS_ITS | Clinical Summary ---
Author Organization [facility] system Address [address] [place] [address] Care Team Providers Care Vice President Safety Name Role Phone Keena Rosales APRN Primary Care Provider +1 [phone] Allergies No known active allergies Medications LORazepam (ATIVAN) 0.5 mg tablet Take 1 mg by mouth as needed for Anxiety. Active venlafaxine HCl (VENLAFAXINE ORAL) Take 325 mg by mouth daily. Active hydrOXYzine (ATARAX) 25 mg tablet Take 25 mg by mouth daily. Active busPIRone (BUSPAR) 5 mg tablet Take 5 mg by mouth daily. Active cholecalciferol , Vitamin D3, (VITAMIN D) 1,000 unit tablet Take 5,000 Units by mouth once a week. Active propranolol HCl (PROPRANOLOL ORAL) Take by mouth. Active liraglutide (VICTOZA) 0.6 mg/0.1 mL (18 mg/3 mL) injectable pen Inject 1.8 mg into the skin daily. Active metFORMIN (GLUCOPHAGE) 500 mg tablet Take 500 mg by mouth daily. 4 tablets once a day Active Active Problems Problem Noted Date Diagnosed Date Morbid obesity ([facility]) 03/24/2020 SUDHA on CPAP 03/24/2020 Resolved Problems Problem Noted Date Diagnosed Date Resolved Date Type 2 diabetes mellitus wit hout complication ([facility]) 03/03/2022 03/03/2022 Encounters Date Type Department Care Team Description 05/05/2024 Lab Requisition [facility] Pathology & Laboratory Medicine - [place] [address] [place] [address] Outr Resulting Lab, Provider from Last 3 Months Surgical History Surgery Date Site/Laterality Comments CHOLECYSTECTOMY Medical History Medical History Date Comments Sleep apnea cpap Mental disorder Type 2 diabetes mellitus without complication (H CC-CMS) 03/03/2022 Family History Medical History Relation Comments Colon Cancer Neg Hx Colon Polyps Neg Hx Esophageal Cancer Neg Hx Pancreatic Cancer Neg Hx Rectal Cancer Neg Hx Stomach Cancer Neg Hx Social History Tobacco Use Types Packs/Day Years [...] 14:05 EDT Sexual Orientation Not on file Obstetrics History Last Filed Vital Signs Vital Sign Reading Time Taken Comments Blood Pressure 144/88 02/01/2020 1041 EDT Pulse 84 12/17/2019 0900 EDT Temperature 36.3 ??C (97.3 ??F) 02/01/2020 1027 EDT Respiratory Rate 24 02/01/2020 1041 EDT Oxygen Saturation 98% 02/01/2020 1041 EDT Inhaled Oxygen Concentration - - Weight 214.8 kg (473 lb 9.6 oz) 03/03/2022 1354 EDT Height 181.6 cm (5' 11.5) 03/03/2022 1354 EDT Body Mass Index 65.14 03/03/2022 1354 EDT Plan of Treatment Upcoming Encounters Date Type Department Care Team (Late st Contact Info) Description 10/02/2024 14:45 EDT Office Visit [facility] Urology - [address] [address] Pipo Jane MD [address] [place] [address], [address] [place] [address] Health Maintenance Due Date Last Done Comments Hepatitis C Screen 1986 Hepatitis B Vaccine (1 of 3 - 19+ 3-dose series) 08/09 COVID-19 Vaccine ( season) 2024 Procedures Procedure Name Priority Date/Time Associated Diagnosis Comments TESTOSTERONE, TOTAL AND FREE Routine 05/05/2024 8:56 EDT from Last 3 Months Results * TESTOSTERONE, TOTAL AND FREE (05/05/2024 8:56 EDT) Testosterone 310 229 - 902 ng/dL 05/07/2024 10:14 EDT [facility] Comment:The results of this assay can be falsely elevated due to the consumption of Biotin. Sex Hormone Bnd Glob 37.9 11.5 - 54.5 nmol/L 05/07/2024 10:14 EDT [facility] Comment:The results of this assay can be falsely lowered due to the consumption of Biotin. Free Testosterone 5.6 4.3 - 16.0 ng/dL 05/07/2024 10:14 EDT [facility] Blood VENOUS BLOOD / Unknown 05/05/2024 8:56 EDT 05/06/2024 16:11 EDT Narrative [facility] - 05/07/2024 10:14 EDT This test is not recommended in patients with plasma protein abnormalities. us Provider Outr Resulting Lab CHEMISTRY & BLOOD GA S ORDERABLES Final Result [facility] [address] [place], [place] [id number] from Last 3 Months Insurance [place]ICAID [place] Care Teams Vice President Safety Relationship Specialty Start Date End Date Keena Rosales APRN 26 [facility] [address] [place] [address] [facility] - General 10/22/21
--- OUTSIDE RECORDS SUMMARY | 2024-07-13 14:53 | XMS_ITS | Encounter Summary ---
Author Organization [facility] Address [address] [place] [address] Care Team Providers Care Transfer Clerk Name Role Phone Pipo Frazier PA-C Primary Care Provider +1 [phone] Reason for Visit * Reason Comments Obesity Pre op Encounter Details Date Type Department Care Team (Late st Contact Info) Description 09/26/2020 10:45 EDT Telemedicine [facility] Bariatric Surgery [place] [address] [place] [address] Junior Stapleton PA-C 111 [facility], [address] [place] [address] Morbid obesity (HCC-CMS) (Primary Dx); [...] - Inhaled Oxygen Concentration - - Weight 219.1 kg (483 lb) 09/26/2020 1037 EDT Height 181.6 cm (5' 11.5) 09/26/2020 1037 EDT Body Mass Index 66.43 09/26/2020 1037 EDT documented in this encounter Progress Notes * Junior Stapleton PA-C - 09/26/2020 1045 EDT 09/26/2020 SUBJECTIVE: René returns to our office today for continued medically supervised weight loss inpreparation for laparoscopic sleeve gastrectomy surgery. He is a 35 y.o. 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 His comorbidities include anxiety and obstructive sleep apnea. Otherwise, he denies any changes to his medical history or medications since his previous visit. He has attended both classes. Upper GI: Normal study. EGD: Stomach= Gastritis ?? Final Diagnosis A. ??STOMACH, BIOPSY: - ??Gastric fundic mucosa with no significant diagnostic abnormality. - ??Negative for Helicobacter pylori microorganisms on H&E stained sections. René met with our program dietitian to review preoperative dietary recommendations. I consulted with the dietitian following her visit with the patient and agree with her findings and recommendations. OBJECTIVE: On physical examination today, his Ht 181.6 cm (71.5) Wt (!) 219.1 kg (483 lb) BMI 66.43 kg/m?? and Body mass index is 66.43 kg/m??.. ASSESSMENT AND PLAN: René will return to our office in a few weeks for continued medically-supervised weight loss in preparation for surgery. He understands that: He has lost 3 of 48 pounds, still going to the gym for 20-25 minutes 4-5 times per week, mostly walking on treadmill. This was a telemedicine health visit by telephone due to the global health crisis with Covid 19. I spent a total of 5 minutes with René Wayne today as described in the progress note. Junior Stapleton PA-C * Raudel Carrillo, DANTE - 09/26/2020 1045 EDT Medical Nutrition Evaluation-PRE OP NOTE Bariatric Clinic Nutrition Pre-op Visit Visit Number: 8 Desired surgery: Gastric Sleeve Subjective: Food logs:Mydevon Meal pattern: 4 scrambled eggs/yogurt and orange for breakfast; Lunch:salad/meat/veggies and cheesewith regular Ranch dressing; Dinner:chicken X 2 pieces and oven cooking veggies(Okra/broccoli/cauliflower) and banana Average caloric intake:~2500 Meal composition: ~20% CHO(180 g per day); 30% fat and 50% protein(313 g a day) Snacking:hard boiled egg and chicken salad Fluid Intake:~96 oz a day Exercise: Gym 20-35 min(Cardio) X 4-5 days a week Objective: Weight: 483 lbs Weight loss from last visit: -2 lbs Total weight loss: Weight loss goal: Total Loss in lbs (Weight from Initial Consult - Today's Weight): 3.2 lbs Approximately 48 lbs Surgery Date: Significant Medications and Supplements:MVM, Vit D weekly Assessment: Patient has made progress towards lifestyle changes Comments: Recommended cutting back protein powder(he uses 2 scoops now). Suggested trying yogurt dressing instead of the regular dressing. His current protein intake is too high and cutting down supplements will help preserve kidney function. Plan: Diet Goals: Keep food records and Calorie goal ~2300 Exercise Goals: Increase time to 150 min a week Weight Loss Goal: Approximately 48 lbs Weight Loss Remaining to Goal: Approximately 44.8 lbs Reviewed: Food/Activity Record(verbal) Next Visit: Pre-op follow-up visit; check blended homework menus This visit was conducted by telephone. I spent a total of 10 minutes in discussion with the patientas described in the progress note. documented in this encounter Plan of Treatment Upcoming Encounters Date Type Department Care Team (Late st Contact Info) Description 10/02/2024 14:45 EDT Office Visit [facility] Urology - [address] [address] Pipo Jane MD [address] [place] [address], [address] [place] [address] documented as of this encounter Visit Diagnoses Diagnosis Morbid obesity ([facility] Primary Morbid obesity BMI 60.0-69.9, adult ([facility]) Body Mass Index 60.0-69.9, adult documented in this encounter Care Teams Transfer Clerk Relationship Specialty Start Date End Date Pipo Frazier PA-C PCP - General 10/05/19 10/21/21 documented as of this encounter
--- OUTSIDE RECORDS SUMMARY | 2024-07-13 14:53 | XMS_ITS | Encounter Summary ---
Author Organization [facility] Address [address] [place] [address] Care Team Providers Care Supply Chain Vice President Name Role Phone Pipo Frazier PA-C Primary Care Provider +1 [phone] Keena Rosales APRN Primary Care Provider +1 -[phone] Encounter Details Date Type Department Care Team (Late st Contact Info) Description 08/25/2021 Orders Only [facility] Radiology [address] [phone] Quincy Burris MD 111 [facility], [address] [place] [address] Social History Tobacco Use Types Packs/Day Years [...] Info) Description 10/02/2024 14:45 EDT Office Visit [facility] Urology [address] [address] Pipo Jaen MD 111 [facility], [address] [place] [phone] documented as of this encounter Visit Diagnoses Not on filedocumented in this encounter Care Teams Supply Chain Vice President Relationship Specialty Start Date End Date Pipo Frazier PA-C PCP - General 10/05/19 10/21/21 Keena Rosales APRN [address] [place] [address] [address] [place] [phone] PCP - General 10/22/21 documented as of this encounter
--- OUTSIDE RECORDS SUMMARY | 2024-07-13 14:53 | XMS_ITS | Encounter Summary ---
Author Organization [facility] Address [address] [place] [address] Care Team Providers Care Status Controller Name Role Phone Keena Rosales Maurice ORONA Primary Care Provider +1 -[phone] Encounter Details Date Type Department Care Team (Late st Contact Info) Description 10/19/2022 Lab Requisition [facility] Pathology & Laboratory Medicine - [address] [address] Outr Resulting Lab, Provider Social History Tobacco [...] Info) Description 10/02/2024 14:45 EDT Office Visit [facility] Urology - [address] [phone] Pipo Jane MD [address] [place] [address], [address] [place] [phone] documented as of this encounter Procedures Procedure Name Priority Date/Time Associated Diagnosis Comments SYPHILIS SEROLOGY Routine 10/19/2022 9:15 EDT documented in this encounter Results * SYPHILIS SEROLOGY (10/19/2022 9:15 EDT) Syphilis Serology Negative Negative 10/21/2022 14:19 EDT [facility] Blood VENOUS BLOOD / Unknown 10/19/2022 9:15 EDT 10/20/2022 17:00 EDT us Provider Outr Resulting Lab IMMUNOLOGY AND SEROL OGY ORDERABLES Final Result Performing Organization Address City/State/[facility] Co de Phone Number [facility] [address] [place] [address] documented in this encounter Visit Diagnoses Not on filedocumented in this encounter Care Teams Status Controller Relationship Specialty Start Date End Date Keena Rosales APRN [address] [place] [address] PCP - General 10/22/21 documented as of this encounter
--- OUTSIDE RECORDS SUMMARY | 2024-07-13 14:53 | XMS_ITS | Encounter Summary ---
Author Organization [facility] Address [address] [place] [address] Care Team Providers Care Carpenter Helper Hardwood Flooring Name Role Phone Pipo Frazier PA-C Primary Care Provider +1 -[phone] Keena Rosales APRN Primary Care Provider +1 -[phone] Encounter Details Date Type Department Care Team (Late st Contact Info) Description 03/12/2021 Lab Requisition [facility] Pathology & Laboratory Medicine - [address] [address] Outr Resulting Lab, Provider Social History Tobacco [...] Info) Description 10/02/2024 14:45 EDT Office Visit [facility] Urology - [address] [id number] Pipo Jane MD 111 [facility], [address] [place] [address] documented as of this encounter Procedures Procedure Name Priority Date/Time Associated Diagnosis Comments TRINITYCOVID-19 TEST [facility] PCR Today 03/12/2021 11:30 EDT COVID-19 TESTING Routine 03/12/2021 11:3 0 EDT documented in this encounter Results * COVID-19 TEST [facility] PCR (03/12/2021 11:30 EDT) Swab ENTIRE NASOPHARYNX / Unknown 03/12/2021 11:30 EDT 03/12/2021 21:42 EDT us Provider Outr Resulting Lab MICROBIOLOGY - GENER AL ORDERABLES Final Result [facility] [address] [place] [address] * COVID-19 TESTING (03/12/2021 11:30 EDT) COVID-19 rt-PCR Result Negative Negative 03/13/2021 17:11 EDT [facility] Comment: This test has not been FDA cleared or approved. This test has been authorized by FDA under an EUA for use by authorized laboratories. This test has been authorized only for detection of nucleic acid from 2019-nCoV, not for any other viruses or pathogens. This test is only authorized for the duration of the declaration that circumstances exist justifying the authorization of emergency use of in vitro diagnostic tests for detection and/or diagnosis of 2019-nCoV under section 564(b)(1) of Act, 21 U.S.C ?? 360bbb-3(b) (1), unless the authorization is terminated or revoked sooner. Negative results do not preclude 2019-nCoV infection and should not be used as the sole basis for treatment or other patient management decisions. Negative results must be combined with clinical observations, patient history, and epidemiological information. Testing was performed using the escobar SARS-CoV-2 assay ([employer] on the Escobar 6800 System Performing Lab Escobar 6800 [facility] 03/13/2021 17:11 EDT [facility] Swab 03/12/2021 11:3 0 EDT 03/12/2021 21:42 EDT us Provider Outr Resulting Lab MICROBIOLOGY - GENER AL ORDERABLES Final Result [facility] [address] [place] [address] documented in this encounter Visit Diagnoses Not on filedocumented in this encounter Additional Health Concerns Infection Onset Date Last Indicated Resolved Time COVID-19 03/25/2021 03/25/2021 04/14/2021 22:1 5 EDT documented as of this encounter Care Teams Carpenter Helper Hardwood Flooring Relationship Specialty Start Date End Date Pipo Frazier PA-C PCP - General 10/05/19 10/21/21 Keena Rosales APRN [address] [place] [address] PCP - General 10/22/21 documented as of this encounter
--- OUTSIDE RECORDS SUMMARY | 2024-07-13 14:53 | XMS_ITS | Encounter Summary ---
Author Organization [facility] Address [address] [place] [address] Care Team Providers Care Police Officer Booking Name Role Phone Keena Rosales Maurice ORONA Primary Care Provider +1 [phone] Encounter Details Date Type Department Care Team (Late st Contact Info) Description 05/05/2024 Lab Requisition [facility] Pathology & Laboratory Medicine - [address] [address] Outr Resulting Lab, Provider Social History Tobacco [...] Info) Description 10/02/2024 14:45 EDT Office Visit [facility] Urology - [address] [address] Pipo Jane MD [address] [place] [address], [address] [place] [phone] documented as of this encounter Procedures Procedure Name Priority Date/Time Associated Diagnosis Comments TESTOSTERONE, TOTAL AND FREE Routine 05/05/2024 8:56 EDT documented in this encounter Results * TESTOSTERONE, TOTAL AND FREE (05/05/2024 8:56 EDT) Testosterone 310 229 - 902 ng/dL 05/07/2024 10:14 EDT [facility] Comment:The results of this assay can be falsely elevated due to the consumption of Biotin. Sex Hormone Bnd Glob 37.9 11.5 - 54.5 nmol/L 05/07/2024 10:14 EDT [facility] Comment:The results of this assay can be falsely lowered due to the consumption of Biotin. Free Testosterone 5.6 4.3 - 16.0 ng/dL 05/07/2024 10:14 EDT [facility] Blood VENOUS BLOOD / Unknown 05/05/2024 8:56 EDT 05/06/2024 16:11 EDT Narrative [facility] - 05/07/2024 10:14 EDT This test is not recommended in patients with plasma protein abnormalities. us Provider Outr Resulting Lab CHEMISTRY & BLOOD GA S ORDERABLES Final Result [facility] [address] [place] [address] documented in this encounter Visit Diagnoses Not on filedocumented in this encounter Care Teams Police Officer Booking Relationship Specialty Start Date End Date Keena Rosales APRN [address],[facility] [address] [place] [address] PCP - General 10/22/21 documented as of this encounter
--- OUTSIDE RECORDS SUMMARY | 2024-07-13 14:53 | XMS_ITS | Encounter Summary ---
Author Organization [facility] Address [address] [place] [address] Care Team Providers Care Dry Wall Nailer Name Role Phone Bobby Keena Maurice ORONA Primary Care Provider [phone] [phone] Reason for Visit * Reason Comments Obesity Pre op Encounter Details Date Type Department Care Team (Late st Contact Info) Description 03/03/2022 14:00 EDT Office Visit [facility] Bariatric Surgery [address] [address] Junior Stapleton, PA-C 111 [facility], [facility], [address] [place] [address] Morbid obesity (HCC-CMS) (Primary Dx); [...] - Inhaled Oxygen Concentration - - Weight 214.8 kg (473 lb 9.6 oz) 03/03/2022 1354 EDT Height 181.6 cm (5' 11.5) 03/03/2022 1354 EDT Body Mass Index 65.14 03/03/2022 1354 EDT documented in this encounter Progress Notes * Junior Stapleton PA-C - 03/03/2022 1400 EDT 03/03/2022 SUBJECTIVE: René returns to our office today for continued medically supervised weight loss inpreparation for laparoscopic sleeve gastrectomy surgery. He is a 36 y.o. 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 His comorbidities include obstructive sleep apnea. Otherwise, he denies any changes to his medical history or medications since his previous visit. He has attended both classes??and needs support group. ?? Upper GI: Normal [...] his Ht 181.6 cm (71.5) Wt (!) 214.8 kg (473 lb 9.6 oz) BMI 65.14 kg/m?? and Body mass index is 65.14 kg/m??.. ASSESSMENT AND PLAN: René will return to our office in a few weeks for continued medically-supervised weight loss in preparation for surgery. He understands that: He has lost 13 of 48 pounds, 8 this month, will need to redo labs, behavioral heatlh eval and be tested for h pylori prior to submission. Junior Stapleton PA-C * Raudel Carrillo RD - 03/03/2022 1400 EDT Medical Nutrition Evaluation-PRE OP NOTE Bariatric Clinic Nutrition Pre-op Visit Visit Number: [id number] Desired surgery: Gastric Sleeve Subjective: Food logs: Gregorio Meal pattern: Tofu/hot sauce and fruit for breakfast; Vegan foods for lunch and supper: Fresh fruits, salads, sweet potato, potato, broccoli,squash, black beans, tofu; Impossible burger without mayonnaise from [employer] once a week Average caloric intake:~1575 Meal composition: 63 g protein, 286 g CHO, 51 g fiber and 28 g fats a day Snacking:Popcorn, fruit Fluid Intake:~96 oz water, Sugar free Coolaid or almond milk on occasion Exercise: Treadmill 20 min X 4 days a week and weights(legs 70 lbs and arms about 50-60 lbs) Objective: Weight: 473.6 lbs Weight loss from last visit: -7.4 lbs Total weight loss: Weight loss goal: Total Loss in lbs (Weight from Initial Consult - Today's Weight): 12.6 lbs Approximately 48 lbs Surgery Date: Significant Medications and Supplements: Victoza, Metformin, B12 Assessment: Patient has made progress towards lifestyle changes Comments: René has been execising and eating about 1500 calories a day. Advised increasing protein to ~90-100 g a day. He is going to add more beans or consider protein drinks. She completed thesupport group in April 2020 and his attendance was added today. He reports poor appetite due to Victoza and Metformin. He has also been drinking a lot of water due to the hot weather. Plan: Diet Goals: Include protein at least 3 times a day, Keep food records and Calorie goal ~8660-6228 Exercise Goals: Maintain current exercise Weight Loss Goal: Approximately 48 lbs Weight Loss Remaining to Goal: Approximately 35.4 lbs Reviewed: Food/Activity Record Next Visit: Pre-op follow-up visit documented in this encounter Plan of Treatment Upcoming Encounters Date Type Department Care Team (Late st Contact Info) Description 10/02/2024 14:45 EDT Office Visit [facility] Urology - [address] [address] Pipo Jane MD 111 [facility], [address] [place] [address] documented as of this encounter Visit Diagnoses Diagnosis Morbid obesity ([facility])- Primary Morbid obesity BMI 60.0-69.9, adult ([facility]) Body Mass Index 60.0-69.9, adult documented in this encounter Care Teams Dry Wall Nailer Relationship Specialty Start Date End Date Keena Rosales APRN [address] [place] [address] PCP - General 10/22/21 documented as of this encounter
--- OUTSIDE RECORDS SUMMARY | 2024-07-13 14:53 | XMS_ITS | Encounter Summary ---
Author Organization [facility] Address [address] [place] [address] Care Team Providers Care Test Fixture Designer Name Role Phone Pipo Frazier PA-C Primary Care Provider +1 [phone] Keena Rosales APRN Primary Care Provider +1 -[phone] Reason for Visit * Reason Onset Date Comments Appointment Related 08/26/2021 cancel appoi ntment scheduled tomorrow at 11:15am Encounter Details Date Type Department Care Team (Late st Contact Info) Description 08/26/2021 Telephone [facility] Bariatric Surgery [facility] [address] [place], [place] [address] Junior Stapleton PA-C 111 [facility], [address] [place] [address] Appointment Related (cancel appointment scheduled tomorrow at 11:15am ) Social History Tobacco Use Types Packs/Day Years [...] encounter Miscellaneous Notes * Telephone Encounter - Tom Jonesa - 08/26/2021 1950 EST PAS Message: Wilmer Wayne, : 87 calling to cancel appointment scheduled with Junior Stapleton scheduled for tomorrow at 11:15am. Patient's roommate has tested positive for covid. Patient will call back. documented in this encounter Plan of Treatment Upcoming Encounters Date Type Department Care Team (Late st Contact Info) Description 10/02/2024 14:45 EDT Office Visit [facility] Urology - [address] [address] Pipo Jane MD 111 [facility], [address] [place] [address] documented as of this encounter Visit Diagnoses Not on filedocumented in this encounter Care Teams Test Fixture Designer Relationship Specialty Start Date End Date Pipo Frazier PA-C PCP - General 10/05/19 10/21/21 Keena Rosales APRN 26 [facility] [address] [place] [address] PCP - General 10/22/21 documented as of this encounter
--- OUTSIDE RECORDS SUMMARY | 2024-07-13 14:53 | XMS_ITS | Encounter Summary ---
Author Organization [facility] Address [address] [place] [address] Care Team Providers Care Section Beamer Name Role Phone Keena Rosales Maurice ORONA Primary Care Provider +1 -[phone] Encounter Details Date Type Department Care Team (Late st Contact Info) Description 02/12/2022 Lab Requisition [facility] Pathology & Laboratory Medicine - [address] [address] Outr Resulting Lab, Provider Social History Tobacco [...] [facility] Urology - [address] [address] Pipo Jane MD [address] [place] [address], [address] [place] [address] documented as of this encounter Procedures Procedure Name Priority Date/Time Associated Diagnosis Comments LYME AB Routine 02/12/2022 0:10 EDT documented in this encounter Results * LYME AB (02/12/2022 0:10 EDT) Lyme Ab Negative Negative 02/15/2022 11:30 EDT [facility] Blood VENOUS BLOOD / Unknown 02/12/2022 0:10 EDT 02/12/2022 17:15 EDT us Provider Outr Resulting Lab IMMUNOLOGY AND SEROL OGY ORDERABLES Final Result Performing Organization Address City/State/[facility] Co de Phone Number [facility] [address] [place] [address] documented in this encounter Visit Diagnoses Not on filedocumented in this encounter Care Teams Section Beamer Relationship Specialty Start Date End Date Keena Rosales APRN [address] [place] [address] PCP - General 10/22/21 documented as of this encounter
--- OUTSIDE RECORDS SUMMARY | 2024-07-13 14:53 | XMS_ITS | Encounter Summary ---
Author Organization [facility] Address [address] [place] [address] Care Team Providers Care Dinkey Engine Operator Name Role Phone Keena Rosales APRN Primary Care Provider +1 -[phone] Reason for Visit * Reason Onset Date Comments Appointment Related 12/22/2021 called to eli kelley Encounter Details Date Type Department Care Team (Late st Contact Info) Description 12/22/2021 Telephone [facility] General Surgery - [facility] [address] [place], [place] [phone] Junior Stapleton PA-C 111 [facility], [address] [place] [address] Appointment Related (called to cancel) Social History Tobacco Use Types Packs/Day Years [...] encounter Miscellaneous Notes * Telephone Encounter - Nandini Byrd - 12/22/2021 2121 EDT Pt called to cancel appt for 12/23 @ 13:15. Due to other commitment. Please call pt to reschedule. documented in this encounter Plan of Treatment Upcoming Encounters Date Type Department Care Team (Late st Contact Info) Description 10/02/2024 14:45 EDT Office Visit [facility] Urology - [address] [address] Pipo Jane MD 111 [facility], [address] [place] [address] documented as of this encounter Visit Diagnoses Not on filedocumented in this encounter Care Teams Dinkey Engine Operator Relationship Specialty Start Date End Date Keena Rosales APRN [address] [facility] [address] [place] [address] PCP - General 10/22/21 documented as of this encounter
--- OUTSIDE RECORDS SUMMARY | 2024-07-13 14:53 | XMS_ITS | Referral Summary ---
Author Organization [facility] Address [address] [place] [address] Care Team Providers Care Wood Web Weaving Machine Operator Name Role Phone Keena Rosales APRN Primary Care Provider +1 -[phone] Encounters Date Type Department Care Team Description 05/05/2024 Lab Requisition [facility] Pathology & Laboratory Medicine - [facility] [address] [place] [address] Outr Resulting Lab, Provider from Last 3 Months Allergies No known active allergies Medications LORazepam [...] Problem Noted Date Diagnosed Date Morbid obesity ([facility]) 03/24/2020 SUDHA on CPAP 03/24/2020 Resolved Problems Problem Noted Date Diagnosed Date Resolved Date Type 2 diabetes mellitus wit hout complication ([facility]) 03/03/2022 03/03/2022 Social History Tobacco Use Types Packs/Day Years [...] 14:05 EDT Sexual Orientation Not on file Last Filed Vital Signs Vital Sign Reading [...] Info) Description 10/02/2024 14:45 EDT Office Visit [facility] Urology - [address] [phone] Pipo Jane MD [address] [place] [address], [address] [place] [address] Procedures Procedure Name Priority Date/Time Associated Diagnosis Comments TESTOSTERONE, TOTAL AND FREE Routine 05/05/2024 8:56 EDT from Last 3 Months Results * TESTOSTERONE, TOTAL AND FREE (05/05/2024 8:56 EDT) Testosterone 310 229 - 902 ng/dL 05/07/2024 10:14 EDT [facility] Comment:The results of this assay can be falsely elevated due to the consumption of Biotin. Sex Hormone Bnd Glob 37.9 11.5 - 54.5 nmol/L 05/07/2024 10:14 EDT [facility] Comment:The results of this assay can be falsely lowered due to the consumption of Biotin. Free Testosterone 5.6 4.3 - 16.0 ng/dL 05/07/2024 10:14 EDT [facility] Blood VENOUS BLOOD / Unknown 05/05/2024 8:56 EDT 05/06/2024 16:11 EDT Narrative [facility] - 05/07/2024 10:14 EDT This test is not recommended in patients with plasma protein abnormalities. us Provider Outr Resulting Lab CHEMISTRY & BLOOD GA S ORDERABLES Final Result [facility] [address] [place], [place] [phone] from Last 3 Months Insurance [place]ICAID [place] Care Teams Wood Web Weaving Machine Operator Relationship Specialty Start Date End Date Keena Rosales APRN [address] [place] [address] PCP - General 10/22/21
--- OUTSIDE RECORDS SUMMARY | 2024-07-13 14:53 | XMS_ITS | Encounter Summary ---
Author Organization [facility] Address [address] [place] [address] Care Team Providers Care Groundman/Lineman Name Role Phone Keena Rosales Maurice ORONA Primary Care Provider +1 -[phone] Encounter Details Date Type Department Care Team (Late st Contact Info) Description 10/19/2022 Lab Requisition [facility] Pathology & Laboratory Medicine - [address] [address] Outr Resulting Lab, Provider Social History Tobacco [...] Info) Description 10/02/2024 14:45 EDT Office Visit [facility] Urology - [address] [address] Pipo Jane MD [address] [place] [address], [address] [place] [address] documented as of this encounter Procedures Procedure Name Priority Date/Time Associated Diagnosis Comments CHLAMYDIA/N. GONORRHOEAE AMPLIFIED NUCLEIC ACID Routine 10/19/2022 9:15 EDT documented in this encounter Results * CHLAMYDIA/N. GONORRHOEAE AMPLIFIED RNA (10/19/2022 9:15 EDT) Neisseria gonorrhoeae Result Negative Negative 10/20/2022 13:29 EDT [facility] Chlamydia trachomatis Result Negative Negative 10/20/2022 13:29 EDT [facility] Urine URINE / Unknown 10/19/2022 9 :15 EDT 10/19/2022 22:01 EDT us Provider Outr Resulting Lab MICROBIOLOGY - GENER AL ORDERABLES Final Result Performing Organization Address City/State/[facility] Co de Phone Number [facility] [address] [place] [address] documented in this encounter Visit Diagnoses Not on filedocumented in this encounter Care Teams Groundman/Lineman Relationship Specialty Start Date End Date Keena Rosales APRN [address] [place] [address] PCP - General 10/22/21 documented as of this encounter
--- OUTSIDE RECORDS SUMMARY | 2024-07-13 14:53 | XMS_ITS | Encounter Summary ---
Author Organization [facility] Address [address] [place] [address] Care Team Providers Care Highway Traffic Control Technician Name Role Phone Pipo Frazier PA-C Primary Care Provider +1 -[phone] Reason for Visit * Reason Onset Date Comments Appointment Related 06/03/2020 Encounter Details Date Type Department Care Team (Late st Contact Info) Description 06/03/2020 Telephone [facility] Bariatric Surgery - [place] [address] [place] [address] Junior Stapleton PA-C 111 [facility], [address] [place] [address] Appointment Related Social History Tobacco [...] encounter Miscellaneous Notes * Telephone Encounter - Chioma Daniel MA - 06/03/2020 1109 EST Called left voice mail message, advised to call to set up next appointment. Needs 4 week f/u with broderick. Last seen 05/15/2020. documented in this encounter Plan of Treatment Upcoming Encounters Date Type Department Care Team (Late st Contact Info) Description 10/02/2024 14:45 EDT Office Visit [facility] Urology - [address] [address] Pipo Jane MD [address] [place] [address], [address] [place] [address] documented as of this encounter Visit Diagnoses Not on filedocumented in this encounter Care Teams Highway Traffic Control Technician Relationship Specialty Start Date End Date Pipo Frazier PA-C PCP - General 10/05/19 10/21/21 documented as of this encounter
--- OUTSIDE RECORDS SUMMARY | 2024-07-13 14:53 | XMS_ITS | Encounter Summary ---
Author Organization [facility] Address [address] [place] [address] Care Team Providers Care Marketing Technologist Name Role Phone Pipo Frazier PA-C Primary Care Provider [phone] Reason for Visit * Reason Comments Obesity pre - op review test ing Encounter Details Date Type Department Care Team (Late st Contact Info) Description 02/22/2020 11:[address] [facility] Bariatric Surgery [address] [id number] Bola Chu MD [address] [place] [phone] Morbid obesity, unspecified obesity type (HCC-CMS) (Primary Dx) Social History Tobacco Use Types Packs/Day Years [...] 14:05 EDT Sexual Orientation Not on file COVID-19 Exposure Response Date Recorded In the last month, have you been in contact with someone who was confirmed or suspected to have Coronavirus / COVID-19? No / Unsure 02/21/2020 14:31 EDT documented as of this encounter Last Filed Vital Signs Vital Sign Reading Time Taken Comments Blood Pressure - - Pulse - - Temperature - - Respiratory Rate - - Oxygen Saturation - - Inhaled Oxygen Concentration - - Weight 222.7 kg (491 lb) 02/22/2020 1127 EDT Height 181.6 cm (5' 11.5) 02/22/2020 1127 EDT Body Mass Index 67.53 02/22/2020 1127 EDT documented in this encounter Progress Notes * Bola Chu MD - 02/22/2020 1100 EDT 02/22/2020 SUBJECTIVE: Rneé returns to our office today for continued medically supervised weight loss inpreparation for laparoscopic sleeve gastrectomy surgery. He is a 34 y.o. 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 Associated co-morbidities: Sleep apnea, Osteoarthritis, Gastro-Esophogeal Reflux, Hypertension and Hyperlipidemia . SUDHA on CPAP, on/off GERD, anxiety, depression. ?? Gallbladder: s/p cholecystectomy ?? Prior abdominal surgeries: laparoscopic cholecystectomy Otherwise, he denies any changes to his medical history or medications since his previous visit. René met with our program dietitian for 30 minutes to review preoperative dietary recommendations. I consulted with the dietitian following her visit with the patient and agree with her findingsand recommendations. OBJECTIVE: On physical examination today, his Ht 181.6 cm (71.5) Wt (!) 222.7 kg (491 lb) BMI 67.53 kg/m?? and Body mass index is 67.53 kg/m??.. Upper GI: Normal study. EGD: Stomach= Gastritis Final Diagnosis A. STOMACH, BIOPSY: - Gastric fundic mucosa with no significant diagnostic abnormality. - Negative for Helicobacter pylori microorganisms on H&E stained sections. The preop test results were discussed with the patient . ASSESSMENT AND PLAN: René will return to our office in a few weeks for continued medically-supervised weight loss in preparation for surgery. The patient is good candidate for LSG stage vs final. Also encouraged patient to call at any time with questions/concerns. 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 He is interested in LSG. Bola Chu MD * Carla Chen - 02/22/2020 1100 EDT Medical Nutrition Evaluation-PRE OP NOTE Bariatric Clinic Nutrition Pre-op Visit Visit Number: 2 Desired surgery: Gastric Sleeve Subjective: Food logs: Bobbi Meal pattern: 3 and 2 snacks Average caloric intake: <2500 Meal composition: vegan diet, B: toast with PB, L/D: rice and beans with salsa often, admits to lots of processed food Snacking: popcorn, nuts, veggies Fluid Intake: doing well with water, cut back on soda (1 every 2-3 days) Exercise: 5 x/week, 15-20 min treadmill/bike Objective: Weight: 491 lbs Weight loss from last visit: + 5 lbs Total weight loss: Weight loss goal: Total Loss in lbs (Weight from Initial Consult - Today's Weight): -4.8 lbs Approximately 48 lbs Surgery Date: Significant Medications and Supplements: n/a Assessment: Patient has made poor progress in making lifestyle changes Comments: René has noticed that following a vegan diet has not helped with weight loss, and hewould like to go back to low carb diet. We discussed benefits of a balanced diet for weight loss sustainability and reviewed the healthy eating plate. He is willing to try including a protein, a vegetable, and a serving of high fiber starch for meals. He has been doing well with hydration and has been consistent with exercise. Plan: Diet Goals: Include protein at least 3 times a day, Keep food records and Add 3 servings of vegetables each day Exercise Goals: Increase time to 30 min 5x/week Weight Loss Goal: Approximately 48 lbs (428 lbs) Weight Loss Remaining to Goal: Approximately 63 lbs Reviewed: Food/Activity Record Next Visit: Pre-op follow-up visit documented in this encounter Plan of Treatment Upcoming Encounters Date Type Department Care Team (Late st Contact Info) Description 10/02/2024 14:[address] [facility] [place] [address] Pipo Jane MD [address] [place] [address], [address] [place] [address] documented as of this encounter Visit Diagnoses Diagnosis Morbid obesity, unspecified obesity type (HCC-CMS)- Primary documented in this encounter Care Teams Marketing Technologist Relationship Specialty Start Date End Date Pipo Frazier PA-C PCP - General 10/05/19 10/21/21 documented as of this encounter
--- OUTSIDE RECORDS SUMMARY | 2024-07-13 14:53 | XMS_ITS | Encounter Summary ---
Author Organization [facility] Address [address] [place] [address] Care Team Providers Care Grants Director Name Role Phone Pipo Frazier PA-C Primary Care Provider [phone] Reason for Visit * Reason Comments Obesity televisit - pre op Encounter Details Date Type Department Care Team (Late st Contact Info) Description 05/15/2020 13:00 EST Telemedicine [facility] Bariatric Surgery [address] [address] Junior Stapleton PA-C 111 [facility], [facility], [address] [place] [address] Morbid obesity (HCC-CMS) (Primary Dx); [...] - Inhaled Oxygen Concentration - - Weight 220.4 kg (486 lb) 05/15/2020 1300 EST Height 181.6 cm (5' 11.5) 05/15/2020 1300 EST Body Mass Index 66.85 05/15/2020 1300 EST documented in this encounter Progress Notes * Junior Stapleton PA-C - 05/15/2020 1300 EST 05/15/2020 SUBJECTIVE: René returns to our office today [...] his Ht 181.6 cm (71.5) Wt (!) 220.4 kg (486 lb) BMI 66.85 kg/m?? and Body mass index is 66.85 kg/m??.. ASSESSMENT AND PLAN: René will return to our office in a few weeks for continued medically-supervised weight loss in preparation for surgery. He understands that: He has lost 0 of 48 pounds, he still needs labs, slip given last time. This was a telemedicine health visit by telephone due to the global health crisis with Covid 19. I spent a total of 5 minutes with René Wayne today as described in the progress note. Junior Stapleton PA-C * Raudel Carrillo, DANTE - 05/15/2020 1300 EST Medical Nutrition Evaluation-PRE OP NOTE Bariatric Clinic Nutrition Pre-op Visit Visit Number: 5 Desired surgery: Gastric Sleeve Subjective: [facility] Meal pattern: 2 eggs/yogurt for breakfast; Cash Manager salad with meat for lunch and Meat/veggies for supper Average caloric intake:~2500 calories, 140 g protein and 42 g fiber per report Meal composition: good Snacking:Bananas,Apples Fluid Intake:water/Sletzer >100 oz a day Exercise: Treadmill 20-30 min X 3-4 days a week Objective: Weight: 486.01 lbs Weight loss from last visit: +1.01 lbs Total weight loss: Weight loss goal: Total Loss in lbs (Weight from Initial Consult - Today's Weight): 0.2 lbs Approximately 48 lbs Surgery Date: Significant Medications and Supplements: Assessment: Patient has made progress towards lifestyle changes Comments: Rahul reports he completed his liquid diet with protein powder mixed with almond milk and reports he used 4-5 scoops of protein powder per day. He reports consuming ~1000 calories a day.Advised reviewing full liquid menu ideas in Gastric Sleeve nutrition booklet and suggested including full liquid soups or yogurt for added variety when he is on his 14 day pre-op liquid diet. He has not completed his blended diet menus and plans to submit them next visit. Diet recall indicates intake of 22% calories as protein meeting his protein needs. Fiber intake is excellent. Plan: Diet Goals: Keep food records and Calorie goal ~2200 Exercise Goals: Increase time to 150 min a week Weight Loss Goal: Approximately 48 lbs Weight Loss Remaining to Goal: Approximately 48.2 lbs Reviewed: Food/Activity Record and Full Liquid Diet Trial Next Visit: Pre-op follow-up visit; review blended diet menus This visit was conducted by telephone. I spent a total of 15 minutes in discussion with the patientas described in the progress note. documented in this encounter Plan of Treatment Upcoming Encounters Date Type Department Care Team (Late st Contact Info) Description 10/02/2024 14:45 EDT Office Visit [facility] Urology - [address] [address] Pipo Jane MD [address] [place] [address], [address] [place] [address] documented as of this encounter Visit Diagnoses Diagnosis Morbid obesity ([facility])- Primary Morbid obesity BMI 60.0-69.9, adult ([facility]) Body Mass Index 60.0-69.9, adult documented in this encounter Care Teams Grants Director Relationship Specialty Start Date End Date Pipo Frazier PA-C PCP - General 10/05/19 10/21/21 documented as of this encounter
--- OUTSIDE RECORDS SUMMARY | 2024-07-13 14:53 | XMS_ITS | Encounter Summary ---
Author Organization [facility] Address [address] [place] [address] Care Team Providers Care Artificial Breeding Ranch Supervisor Name Role Phone Bobby Keena Maurice ORONA Primary Care Provider [phone] [phone] Reason for Visit * Reason Comments Obesity pre op Encounter Details Date Type Department Care Team (Late st Contact Info) Description 01/27/2022 13:30 EDT Office Visit [facility] Bariatric Surgery [address] [address] Junior Stapleton, PA-C 111 [facility], [facility], [address] [place] [address] Morbid obesity (HCC-CMS) (Primary Dx); [...] - Inhaled Oxygen Concentration - - Weight 218.2 kg (481 lb) 01/27/2022 1340 EDT Height 181.6 cm (5' 11.5) 01/27/2022 1340 EDT Body Mass Index 66.16 01/27/2022 1340 EDT documented in this encounter Progress Notes * Raudel Carrillo, RD - 01/27/2022 1330 EDT Medical Nutrition Evaluation-PRE OP NOTE Bariatric Clinic Nutrition Pre-op Visit Visit Number: 18 Desired surgery: Gastric Sleeve Subjective: I'm still sticking with the intense vegan diet. It seems to be working. Food logs: Myfitnesspal Meal pattern: Fruit/Tofu with pepper and half cup grape fruit juice for breakfast; Lunch:0.5 cup alexandre/green more peppers, Salad mix, [place] on Cod, onion; Dinner: Black alexandre burger/Sweet potato/Boiled c abbage/Squash/Zucchini/Broccoli/Red potato/carrots Average caloric intake:~1514 weekly average Meal composition: 17% protein; 15% fats and 68% CHO; Fiber 53 g Snacking: Lite Popcorn, Boyle, Pear Fluid Intake:8 or more cups of water Exercise: Gym(30-45 min alternating days with Cardio and weight lifting) X 7 days Objective: Weight: 481 lbs Weight loss from last visit: -20 lbs Total weight loss: Weight loss goal: Total Loss in lbs (Weight from Initial Consult - Today's Weight): 5.2 lbs Approximately 48 lbs Surgery Date: Significant Medications and Supplements: Victoza, Vit D, Iron tablet every other day, MVM Vegan Assessment: Patient has made progress towards lifestyle changes Comments:Marquez has increased his tofu and beans intake to increase protein in his diet. He is happy with his wt loss. He has been keeping to 1500 calories a day. Advised 4794-2550 calories a day. Suggested alexandre sprouts. Plan: Diet Goals: Keep food records and Calorie goal [phone]; continue protein choices at all meals Exercise Goals: Maintain current exercise Weight Loss Goal: Approximately 48 lbs Weight Loss Remaining to Goal: Approximately 42.8 lbs Reviewed: Food/Activity Record Next Visit: Pre-op follow-up visit * Junior Stapleton PA-C - 01/27/2022 1330 EDT 01/27/2022 SUBJECTIVE: René returns to our office today [...] his Ht 181.6 cm (71.5) Wt (!) 218.2 kg (481 lb) BMI 66.16 kg/m?? and Body mass index is 66.16 kg/m??.. ASSESSMENT AND PLAN: René will return to our office in a few weeks for continued medically-supervised weight loss in preparation for surgery. He understands that: He has lost 5 of 48 pounds, 20 this month, eating vegan currently, calories just a little bit low, exercising every day - alternating cardio with strength training. Junior Stapleton PA-C documented in this encounter Plan of Treatment Upcoming Encounters Date Type Department Care Team (Late st Contact Info) Description 10/02/2024 14:45 EDT Office Visit [facility] [place] [address] Pipo Jane MD [address] [place] [address], [address] [place] [address] documented as of this encounter Visit Diagnoses Diagnosis Morbid obesity ([facility])- Primary Morbid obesity BMI 60.0-69.9, adult ([facility]) Body Mass Index 60.0-69.9, adult documented in this encounter Historical Medications * This list may reflect changes made after this encounter. metFORMIN (GLUCOPHAGE) 500 mg tablet Take 500 mg by mouth daily. 4 tablets once a day added in this encounter Care Teams Artificial Breeding Ranch Supervisor Relationship Specialty Start Date End Date Keena Rosales APRN [address] [place] [phone] PCP - General 10/22/21 documented as of this encounter
--- OUTSIDE RECORDS SUMMARY | 2024-07-13 14:53 | XMS_ITS | Encounter Summary ---
Author Organization [facility] Address [address] [place] [address] Care Team Providers Care Transportation Aid Name Role Phone Pipo Frazier PA-C Primary Care Provider [phone] [phone] Reason for Visit * Reason Comments Obesity Pre op Encounter Details Date Type Department Care Team (Late st Contact Info) Description 03/19/2021 13:00 EDT Office Visit [facility] Bariatric Surgery [address] [address] Junior Stapleton PA-C 111 [facility], [address] [place] [address] Morbid obesity (HCC-CMS) (Primary Dx); [...] - Inhaled Oxygen Concentration - - Weight 227.7 kg (502 lb) 03/19/2021 1259 EDT Height 181.6 cm (5' 11.5) 03/19/2021 1259 EDT Body Mass Index 69.05 03/19/2021 1259 EDT documented in this encounter Progress Notes * Junior Stapleton PA-C - 03/19/2021 1300 EDT 03/19/2021 SUBJECTIVE: René returns to our office today [...] examination today, his Ht 181.6 cm (71.5) BMI 69.68 kg/m?? and Body mass index is 69.68 kg/m??.. ASSESSMENT AND PLAN: René will return to our office in a few weeks for continued medically-supervised weight loss in preparation for surgery. He understands that: He is up from his initial weight, lost 5 pounds this month doing keto diet, will work on getting saturated fat content down, goal 48 pounds. Junior Stapleton PA-C * Raudel Carrillo RD - 03/19/2021 1300 EDT Medical Nutrition Evaluation-PRE OP NOTE Bariatric Clinic Nutrition Pre-op Visit Visit Number: 11 Desired surgery: Gastric Sleeve Subjective: Food logs: Myfitnesspal Meal pattern: Eggs X 4 with cheese and butter for breakfast; Planer Setter sald with chicken for lunch and 4oz chicken/broccoli and cottage cheese for supper Average caloric intake:reports ~2400 Meal composition: 69% fats; 7% CHO and 24% protein per report(trying to keep CHO under 20 g a day);71 g saturated fats per day per report Snacking:Celery or green veggies Fluid Intake:~100 oz a day Exercise: Cardio at gym 15-20 min X 3-4 days a week Objective: Weight: 502 lbs Weight loss from last visit: -4.6 lbs Total weight loss: Weight loss goal: Total Loss in lbs (Weight from Initial Consult - Today's Weight): -15.8 lbs Approximately 48 lbs Surgery Date: Significant Medications and Supplements: MVM, Vit D Assessment: Patient has made progress towards lifestyle changes Comments: Marquez has been following the Keto diet and reports monitoring his weight at home. Advised increasing protein servings at meal times and to change cheese to low fat Cheese Cheese([place]). Alsosuggested lean meats and to add nuts and seeds to increase unsaturated fats and decrease intake of saturated fat intake. Encouraged 30% calories as protein and to cut back total fat intake as able. Suggested attending Zoom support group for added support to lose weight. Plan: Diet Goals: Include protein at least 3 times a day, Keep food records and Calorie goal ~3000 Exercise Goals: Increase time to 150 min a week as able Weight Loss Goal: Approximately 48 lbs Weight Loss Remaining to Goal: Approximately 63.8 lbs Reviewed: Food/Activity Record(Verbal report from his food records today) Next Visit: Pre-op follow-up visit documented in this encounter Plan of Treatment Upcoming Encounters Date Type Department Care Team (Late st Contact Info) Description 10/02/2024 14:45 EDT Office Visit [facility] Urology - [address] [id number] Pipo Jane MD [address] [place] [address], [address] [place] [address] documented as of this encounter Visit Diagnoses Diagnosis Morbid obesity ([facility])- Primary Morbid obesity BMI 60.0-69.9, adult ([facility]) Body Mass Index 60.0-69.9, adult documented in this encounter Care Teams Transportation Aid Relationship Specialty Start Date End Date Pipo Frazier PA-C PCP - General 10/05/19 10/21/21 documented as of this encounter
--- OUTSIDE RECORDS SUMMARY | 2024-07-13 14:53 | XMS_ITS | Encounter Summary ---
Author Organization [facility] Address [address] [place] [address] Care Team Providers Care Broom Builder Name Role Phone Pipo Frazier PA-C Primary Care Provider +1 -[phone] Reason for Visit * Reason Comments Obesity televisit - #2 Encounter Details Date Type Department Care Team (Late st Contact Info) Description 03/24/2020 14:00 EDT Telemedicine [facility] Bariatric Surgery [address] [address] Junior Stapleton PA-C 111 [facility], [facility], [address] [place] [address] Morbid obesity (HCC-CMS) (Primary Dx); [...] - - Weight 220 kg (485 lb) 03/24/2020 1359 EDT Height 181.6 cm (5' 11.5) 03/24/2020 1359 EDT Body Mass Index 66.71 03/24/2020 1359 EDT documented in this encounter Progress Notes * Raudel Carrillo RD - 03/24/2020 1400 EDT Medical Nutrition Evaluation-PRE OP NOTE Bariatric Clinic Nutrition Pre-op Visit Visit Number: 3 Desired surgery: Gastric Sleeve Subjective: I have been a little gassy and a little tired. Food logs: [facility] Meal pattern: 2 Scrambled eggs/toast/apple for breakfast; Spencer/trail mix for lunch; Supper:Meat/stir delgado veggies Average caloric intake:~2500 Meal composition: 35% protein; 45% CHO with 42 g fiber a day and 220 g protein a day Snacking:Popcorn(home made) without butter Fluid Intake:1-1.5 gallons a day; Cut out soda(only drinking seltzer water) Exercise: Gym 30 min X 5 days a week for past 3-4 weeks Objective: Weight: Weight loss from last visit: -6 lbs Total weight loss: Weight loss goal: Total Loss in lbs (Weight from Initial Consult - Today's Weight): 1.2 lbs Approximately 48 lbs Surgery Date: Significant Medications and Supplements:MVM Assessment: Patient has made progress towards lifestyle changes Comments:René has started going to the gym and has been eating healthy meals. Diet recall indicates adequate intake of fiber and protein. He also drinks a lot of water. Congratulated him on his effort to cut out soda. Reviewed program requirements. Sent him link to Zoom support group lisa. Plan: Diet Goals: Keep food records and Calorie goal 2500 Exercise Goals: Maintain current exercise Weight Loss Goal: Approximately 48 lbs Weight Loss Remaining to Goal: Approximately 46.8 lbs Reviewed: Food Log Not Reviewed Next Visit: Nutrition class scheduled on 04/16/2020 This visit was conducted by telephone. I spent a total of 12 minutes in discussion with the patientas described in the progress note. * Junior Stapleton PA-C - 03/24/2020 1400 EDT Pipo Frazier PA-C [address] [place] [address] Dear Freddie : Thank you for referring your patient, René Wayne, for evaluation and consideration of laparoscopic sleeve gastrectomy surgery. Mr. Wayne met with Dr. Giang for his initial consultation on 12/17/19. He denies any changes in his medical history or medications since his previous visit. Mr. Wayne is a 34 y.o. 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 His comorbidities include anxiety and obstructive sleep apnea. Review of Systems Constitutional: No fevers, chills. No weight loss or gain. HEENT: No upper respiratory infection symptoms Cardiovascular: No chest pain, no shortness of breath, able to walk up a flight of stairs with no dyspnea or pain. Respiratory: No wheezing, +SUDHA on CPAP Renal: No dysuria or difficulty starting stream of urine GI: No nausea or vomiting, no diarrhea or constipation Endocrine: No polyuria or polydipsia Hematology: No excessive bruising or bleeding, no history of DVT Eyes: No acute changes Neurology: No slurred speech, occasional headache, no unilateral weakness Musculoskeletal: No muscle or joint pain Allergies/immunologic: + seasonal allergies Current Outpatient Medications: ??? busPIRone (BUSPAR) 5 mg tablet, Take 5 mg by mouth daily., Disp: , Rfl: ??? hydrOXYzine (ATARAX) 25 mg tablet, Take 25 mg by mouth daily., Disp: , Rfl: ??? LORazepam (ATIVAN) 0.5 mg tablet, Take 1 mg by mouth as needed for Anxiety., Disp: , Rfl: ??? venlafaxine HCl (VENLAFAXINE ORAL), Take 325 mg by mouth daily., Disp: , Rfl: Allergies include: Patient has no known allergies. Past Surgical History: Procedure Laterality Date ??? CHOLECYSTECTOMY family history is not on file. Patient reports that he has never smoked. He has never used smokeless tobacco. He reports current alcohol use. He reports that he does not use drugs. For exercise René is gym on lunch break to use elliptical for 30 minutes 5 days per week. René met with our program auto fleet maintenance manager for 30 minutes to review preoperative dietary recommendations. He has gained/lost almost 1 pounds since starting in our program and he understands he needs tolose 48 total pounds before we will consider scheduling his surgery. I did consult our auto fleet maintenance manager following her visit with the patient and agree with her findings and recommendations. On physical examination today, his Ht 181.6 cm (71.5) Wt (!) 220 kg (485 lb) BMI 66.71 kg/m?? and Body mass index is 66.71 kg/m??.. Also, on physical exam, his Physical Examination: General: No apparent distress, appears stated age HEENT: Moist mucous membranes Neck: No goiter Lungs: Clear to auscultation bilaterally Heart: Regular rate and rhythm Abdomen: Soft, non-distended, non-tender, +bowel sounds Musculoskeletal: Normal range of motion Neurological: Cranial nerves II-XII intact, strength intact in upper and lower extremities, patellar reflex 2+ bilaterally Mr. Wayne is an appropriate candidate for laparoscopic sleeve gastrectomy surgery with a BMI of 66 and a life threatening comorbidity. We will need the following things in order to proceed with his evaluation : routine labs which I will order. If you have any questions or concerns regarding any information in this letter, please do not hesitate to contact me. René Wayne will be returning to our office in a few weeks for continued medically supervised weight loss in preparation for surgery. The concept of ???Telemedicine?? has been described to the patient.? Patient has been informed of the anticipated benefits and possible risks.? Patient understands the information provided regardingtelemedicine, has had the opportunity to ask questions about this information, and all questions have been answered to patient???s satisfaction. Patient consents for the use of telemedicine in his/her medical care and authorizes the transmission of any relevant medical information to providers and their staff involved in patient???s medical or mental health care. This was a telemedicine health visit by telephone due to the global health crisis with Covid 19. I spent a total of 9 minutes with René Wayne today as described in the progress note. Sincerely Yours, Junior Stapleton PA-C CC: documented in this encounter Plan of Treatment Upcoming Encounters Date Type Department Care Team (Late st Contact Info) Description 10/02/2024 14:45 EDT Office Visit [facility] Urology - [address] [phone] Pipo Jane MD 111 [facility], [address] [place] [phone] documented as of this encounter Visit Diagnoses Diagnosis Morbid obesity ([facility])- Primary Morbid obesity BMI 60.0-69.9, adult ([facility]) Body Mass Index 60.0-69.9, adult documented in this encounter Care Teams Broom Builder Relationship Specialty Start Date End Date Pipo Frazier PA-C PCP - General 10/05/19 10/21/21 documented as of this encounter
--- OUTSIDE RECORDS SUMMARY | 2024-07-13 14:53 | XMS_ITS | Encounter Summary ---
Author Organization [facility] Address [address] [place] [address] Care Team Providers Care Fisher Seal Name Role Phone Keena Rosales Maurice ORONA Primary Care Provider +1 [phone] Encounter Details Date Type Department Care Team (Late st Contact Info) Description 10/19/2022 Lab Requisition [facility] Pathology & Laboratory Medicine - [address] [address] Outr Resulting Lab, Provider Social History Tobacco [...] Info) Description 10/02/2024 14:45 EDT Office Visit [facility] Urology - [address] [address] Pipo Jane MD [address] [place] [address], [address] [place] [phone] documented as of this encounter Procedures Procedure Name Priority Date/Time Associated Diagnosis Comments HIV 1/2 ANTIGEN AND ANTIBODY, 4TH GENERATION Routine 10/19/2022 9:15 EDT documented in this encounter Results * HIV 1/2 ANTIGEN AND ANTIBODY, 4TH GENERATION (10/19/2022 9:15 EDT) HIV 1 and 2 Antibody/p24 Antigen, 4th Generation Negative Negative 10/20/2022 10:23 EDT [facility] Comment:If acute HIV-1 infec tion is suspected in a high risk patient, submit plasma specimen for HIV-1 RNA quantitation test. Blood VENOUS BLOOD / Unknown 10/19/2022 9:15 EDT 10/19/2022 21:39 EDT Narrative [facility] - 10/20/2022 10:23 EDT Fourth Generation assay performed on the Siemens Centaur XPT. us Provider Outr Resulting Lab IMMUNOLOGY AND SEROL OGY ORDERABLES Final Result [facility] [address] [place] [address] documented in this encounter Visit Diagnoses Not on filedocumented in this encounter Care Teams Fisher Seal Relationship Specialty Start Date End Date Keena Rosales APRN 26 [facility] [address] [place] [address] PCP - General 10/22/21 documented as of this encounter
--- OUTSIDE RECORDS SUMMARY | 2024-07-13 14:53 | XMS_ITS | Encounter Summary ---
Author Organization [facility] Address [address] [place] [address] Care Team Providers Care Buttoner Name Role Phone Pipo Frazier PA-C Primary Care Provider +1 -[phone] Encounter Details Date Type Department Care Team (Latest Contact Info) Description 02/21/2020 Travel Social History Tobacco Use Types Packs/Day Years [...] 14:31 EDT documented as of this encounter Plan of Treatment Upcoming Encounters Date Type Department Care Team (Late st Contact Info) Description 10/02/2024 14:45 EDT Office Visit [facility] Urology - [facility] [address] [place], [place] [phone] Pipo Jane MD 111 [facility], [address] [place] [address] documented as of this encounter Visit Diagnoses Not on filedocumented in this encounter Care Teams Buttoner Relationship Specialty Start Date End Date Pipo Frazier PA-C PCP - General 10/05/19 10/21/21 documented as of this encounter
--- OUTSIDE RECORDS SUMMARY | 2024-07-13 14:53 | XMS_ITS | Encounter Summary ---
Author Organization [facility] Address [address] [place] [address] Care Team Providers Care Roustabout Name Role Phone Pipo Frazier PA-C Primary Care Provider +1 -[phone] Reason for Visit * Reason Comments Obesity Encounter Details Date Type Department Care Team (Late st Contact Info) Description 04/14/2020 10:30 EDT Telemedicine [facility] Bariatric Surgery [facility] [address] [place], [place] [phone] Romina Knight, PhD [address] [place] [address] Panic disorder without agoraphobia with moderate panic attacks (Primary Dx) Social History Tobacco Use Types [...] on file documented as of this encounter Progress Notes * Romina Knight, PhD - 04/14/2020 1030 EDT Behavioral Skills Group Progress Note Name: René Wayne : 1985 Procedure: 1.5 hour Psychoeducational Group Number of Participants: 7 TELEMEDICINE VIDEO VISIT Today's visit was provided through telemedicine video conferencing: The location of the patient : Home The location of the provider: Home Office The concept of ???Telemedicine?? has been described [...] in patient???s medical or mental health care. S: The focus of this session was on introducing the behavioral skills necessary for weight loss andweight loss maintenance after surgery. Educational information was provided on topics including: energy balance, ???mindless margin,?? portion control, overcoming emotional eating, and increasing physical activity. Patients were encouraged to reflect on how they can reengineer their lifestyles, incorporating these strategies for long-term success with weight loss maintenance. This group also focused on the importance of setting realistic and achievable goals. O: Vitals: There were no vitals taken for this visit. A: Level of Participation: Engaged Diagnosis: Panic Disorder without Agoraphonia with moderate panic attacks (F41.0) P: Follow-up with behavioral support at patient???s or team???s request. Romina Knight, PhD Licensed Psychologist - Doctorate 04/14/2020 15:23 documented in this encounter Plan of Treatment Upcoming Encounters Date Type Department Care Team (Late st Contact Info) Description 10/02/2024 14:45 EDT Office Visit [facility] Urology - [address] [address] Pipo Jane MD [address] [place] [address], [address] [place] [address] documented as of this encounter Visit Diagnoses Diagnosis Panic disorder without agoraphobia with moderate panic attacks- Primary Panic disorder without agoraphobia documented in this encounter Care Teams Roustabout Relationship Specialty Start Date End Date Pipo Frazier PA-C PCP - General 10/05/19 10/21/21 documented as of this encounter
--- OUTSIDE RECORDS SUMMARY | 2024-07-13 14:53 | XMS_ITS | Encounter Summary ---
Author Organization [facility] Address [address] [place] [address] Care Team Providers Care Guide Alpine Name Role Phone Bobby Keena Maurice ORONA Primary Care Provider +1 -[phone] Reason for Visit * Reason Comments Obesity Pre op Encounter Details Date Type Department Care Team (Late st Contact Info) Description 11/05/2021 10:30 EDT Office Visit [facility] Bariatric Surgery [address] [address] Junior Stapleton, PANikhilC 111 [facility], [facility], [address] [place] [address] Morbid obesity (HCC-CMS) (Primary Dx); [...] - Inhaled Oxygen Concentration - - Weight 235.1 kg (518 lb 3.2 oz) 11/05/2021 1058 EDT Height 181.6 cm (5' 11.5) 11/05/2021 1058 EDT Body Mass Index 71.27 11/05/2021 1058 EDT documented in this encounter Progress Notes * Torri Mcmillan, RD - 11/05/2021 1030 EDT Medical Nutrition Evaluation-PRE OP NOTE Bariatric Clinic Nutrition Pre-op Visit Visit Number: 16 Desired surgery: Gastric Sleeve Subjective: I started to weight-lift more, replacing it with my cardio; the victoza is making me have nausea sometimes; my anxiety is always a jean for me Food logs: [facility] Meal pattern: B: lite cheese w/ 4 eggs, fruit, yogurt; lunch: electrical and radio mechanic salad w/chicken, cottage cheese;dinner burger no bun; or chx breast, mixed vegs Average caloric intake: ~ 2200- 2500 Meal composition: 27% protein; fat 32%; carbs 41% Snacking:cottage cheese, popcorn, blueberries Fluid Intake: 80-96 oz water sometimes mixed with unsweet koolaid Exercise: weightlifting at gym 5x/wk x 30 min; walking around [facility] 2x/wk x 20 min Objective: Weight: 518.2 lbs Weight loss from last visit: - 4 lbs Total weight loss: Weight loss goal: Total Loss in lbs (Weight from Initial Consult - Today's Weight): -32 lbs Approximately 48 lbs Surgery Date: Significant Medications and Supplements: Victoza, vitamin D, anxiety meds, iron pills Assessment: Patient has made progress towards lifestyle changes Comments: Continues with low carb, higher protein diet. Trying to drink more plain water and cutting back on the unsweetened koolaid. Discussed plate method as a good visual. Reports his iron was low-started on iron pills. Reports he attended support group via zoom when his first started program [email or web address]. Plan: Diet Goals: Keep food records and Increase fruit and vegetables , watch portions of meat/protein. Exercise Goals: Maintain current exercise Weight Loss Goal: Approximately 48 lbs (or down to 438 lbs) Weight Loss Remaining to Goal: Approximately 80 lbs Reviewed: Food/Activity Record Next Visit: Pre-op follow-up visit, ?attend support group * Junior Stapleton PA-C - 11/05/2021 1030 EDT 11/05/2021 SUBJECTIVE: René returns to our office today [...] his Ht 181.6 cm (71.5) Wt (!) 235.1 kg (518 lb 3.2 oz) BMI 71.27 kg/m?? and Body mass index is 71.27 kg/m??.. ASSESSMENT AND PLAN: René will return to our office in a few weeks for continued medically-supervised weight loss in preparation for surgery. He understands that: He is up from his initial weight, lost 4 pounds this month, goal 48 pounds. He had been doing low carb diet and changed it over this month. We are working with him to be more balanced in his eating as he is eating more protein thanhe can absorb. He should also monitor his sodium intake as his weight fluctuates rapidly. Junior Stapleton PA-C documented in this encounter Plan of Treatment Upcoming Encounters Date Type Department Care Team (Late st Contact Info) Description 10/02/2024 14:45 EDT Office Visit [facility] Urology - [facility] [address] [place] [address] Pipo Jane MD 111 [facility], [address] [place] [phone] documented as of this encounter Visit Diagnoses Diagnosis Morbid obesity ([facility])- Primary Morbid obesity BMI 70 and over, adult (HCC-CMS) Body Mass Index 70 and over, adult documented in this encounter Care Teams Guide Alpine Relationship Specialty Start Date End Date Keena Rosales APRN 26 [facility] [address] [place] [address] PCP - General 10/22/21 documented as of this encounter
--- OUTSIDE RECORDS SUMMARY | 2024-07-13 14:53 | XMS_ITS | Encounter Summary ---
Author Organization [facility] Address [address] [place] [address] Care Team Providers Care Hoist Operator Name Role Phone Ppio Frazier PA-C Primary Care Provider +1 -[phone] Keena Rosales APRN Primary Care Provider +1 -[phone] Encounter Details Date Type Department Care Team (Late st Contact Info) Description 03/26/2021 Lab Requisition [facility] Pathology & Laboratory Medicine - [address] [phone] Outr Resulting Lab, Provider Social History Tobacco [...] Info) Description 10/02/2024 14:45 EDT Office Visit [facility] Urology - [address] [phone] Pipo Jane MD [address] [place] [address], [address] [place] [address] documented as of this encounter Procedures Procedure Name Priority Date/Time Associated Diagnosis Comments ZZCOVID-19 TEST [facility] PCR Today 03/25/2021 9:30 EDT COVID-19 TESTING Routine 03/25/2021 9:30 EDT documented in this encounter Results * COVID-19 TEST [facility] PCR (03/25/2021 9:30 EDT) Swab ENTIRE NASOPHARYNX / Unknown 03/25/2021 9:30 EDT 03/26/2021 16:02 EDT us Provider Outr Resulting Lab MICROBIOLOGY - GENER AL ORDERABLES Final Result [facility] [address] [place] [id number] * (ABNORMAL) COVID-19 TESTING (03/25/2021 9:30 EDT) COVID-19 rt-PCR Result Positive( AA) Negative 03/27/2021 12:04 EDT [facility] Comment: This test has not [...] the authorization is terminated or revoked sooner. Testing was performed using the escobar SARS-CoV-2 assay ([employer] on the Escobar 6800 System Performing Lab Escobar 6800 [facility] 03/27/2021 12:04 EDT [facility] Swab 03/25/2021 9:30 EDT 03/26/2021 16:02 EDT us Provider Outr Resulting Lab MICROBIOLOGY - GENER AL ORDERABLES Final Result [facility] [address] [place] [address] documented in this encounter Visit Diagnoses Not on filedocumented in this encounter Additional Health Concerns Infection Onset Date Last Indicated Resolved Time COVID-19 03/25/2021 03/25/2021 04/14/2021 22:1 5 EDT documented as of this encounter Care Teams Hoist Operator Relationship Specialty Start Date End Date Pipo Frazier PA-C PCP - General 10/05/19 10/21/21 Keena Rosales APRN 26 [facility] [address] [place] [address] PCP - General 10/22/21 documented as of this encounter
--- OUTSIDE RECORDS SUMMARY | 2024-07-13 14:53 | XMS_ITS | Encounter Summary ---
Author Organization [facility] Address [address] [place] [address] Care Team Providers Care Laborer Vineyard Name Role Phone Pipo Frazier PA-C Primary Care Provider +1 -[phone] Keena Rosales APRN Primary Care Provider +1 -[phone] Encounter Details Date Type Department Care Team (Late st Contact Info) Description 08/04/2021 Lab Requisition [facility] Pathology & Laboratory Medicine - [address] [address] Outr Resulting Lab, Provider Social History Tobacco [...] 10/02/2024 14:45 EDT Office Visit [facility] Urology - [address] [phone] Pipo Jane MD 111 [facility], [address] [place] [address] documented as of this encounter Procedures Procedure Name Priority Date/Time Associated Diagnosis Comments HEMOGLOBINOPATHY AND THALASSEMIA EVALUATION Routine 08/04/2021 10:45 EST documented in this encounter Results * HEMOGLOBINOPATHY AND THALASSEMIA EVALUATION (08/04/2021 10:45 EST) Hemoglobin A 97.8 96.7 - 97.8 % 08/05/2021 16:50 EST [facility] Hemoglobin A2 2.2 2.2 - 3.2 % 08/05/2021 16:50 EST [facility] Comment:Hemoglobin A2 levels may be decreased in iron deficiency. Hemoglobinopathy Interpretation Interpretation : No abnormal hemoglobins identified. Reviewed by: Jose Martin Viramontes MD 08/05/2021 1611 08/05/2021 16:50 EST [facility] Blood VENOUS BLOOD / Unknown 08/04/2021 10:45 EST 08/04/2021 21:18 EST us Provider Outr Resulting Lab CHEMISTRY & BLOOD GA S ORDERABLES Final Result [facility] [address] [place] [address] documented in this encounter Visit Diagnoses Not on filedocumented in this encounter Care Teams Laborer Vineyard Relationship Specialty Start Date End Date Pipo Frazier PA-C PCP - General 10/05/19 10/21/21 Keena Rosales APRN [address] [address] PCP - General 10/22/21 documented as of this encounter
--- OUTSIDE RECORDS SUMMARY | 2024-07-13 14:53 | XMS_ITS | Encounter Summary ---
Author Organization [facility] Address [address] [place] [address] Care Team Providers Care Comb Winder Name Role Phone Pipo Frazier PA-C Primary Care Provider [phone] [phone] Reason for Visit * Reason Comments Obesity Encounter Details Date Type Department Care Team (Late st Contact Info) Description 05/21/2021 13:15 EST Office Visit [facility] Bariatric Surgery [facility] [address] [place] [address] Junior Stapleton PA-C [address] [facility], [facility], [address] [place] [address] Morbid obesity (HCC-CMS) (Primary Dx); [...] - Inhaled Oxygen Concentration - - Weight 230.7 kg (508 lb 9.6 oz) 05/21/2021 1320 EST Height 181.6 cm (5' 11.5) 05/21/2021 1320 EST Body Mass Index 69.95 05/21/2021 1320 EST documented in this encounter Progress Notes * Junior Stapleton PA-C - 05/21/2021 1315 EST 05/21/2021 SUBJECTIVE: René returns to our office today [...] his Ht 181.6 cm (71.5) Wt (!) 230.7 kg (508 lb 9.6 oz) BMI 69.95 kg/m?? and Body mass index is 69.95 kg/m??.. ASSESSMENT AND PLAN: René will return to our office in a few weeks for continued medically-supervised weight loss in preparation for surgery. He understands that: He is up from his initial weight, lost 2 pounds this month, goal 48 pounds. Junior Stapleton PA-C * Carmen Lofton RD - 05/21/2021 1315 EST Medical Nutrition Evaluation-PRE OP NOTE Bariatric Clinic Nutrition Pre-op Visit Visit Number: #[id number] Desired surgery: Gastric Sleeve Subjective: I'm going to the gym a little longer, 20-30 minutes on my lunch break. Food logs: [facility] Meal pattern: Eggs X 4, 50% lite cheese, 2 apples for breakfast; [employer] Salad with 6 oz Chicken breast/2 cups blueberries for lunch; Iselin burger 3 patties/ 2 tsp chandler, 2 oz 50% cheese and broccoli for supper Average caloric intake: 2,400/day Meal composition: 33% protein, 23% CHO and 44% fats; 35 g fiber a day Snacking: apple Fluid Intake: gallon or more water a day, lots of diet soda or seltzer Exercise: Cardio and weights 20-30 minutes 5 days/week at gym Objective: Weight: 508.6 lbs Weight loss from last visit: 1.6 lbs Total weight loss: Weight loss goal: Total Loss in lbs (Weight from Initial Consult - Today's Weight): -22.4 lbs Approximately 48 lbs Surgery Date: Significant Medications and Supplements: M Assessment: Patient has made progress towards lifestyle changes. Comments: Continues to follow the Keto diet with the same foods on a daily basis. Cut out salted almonds since last months visit to minimize salt. Has been exercising more frequently. Advised cuttingback on all carbonated beverages in preparation for surgery. Advised decreasing calories by 100-200kcal/day to aid with continued pre-operative weight loss. Plan: Diet Goals: Decrease intake of high-fat items, Include protein at least 3 times a day, Keep food records with goal 2,200 kcal/day, Add 3 servings of vegetables each day, decrease/eliminate all carbonated beverages from daily intake. Exercise Goals: Increase time to 150 minutes/week Weight Loss Goal: Approximately 48 lbs Weight Loss Remaining to Goal: Approximately 70.4 lbs Reviewed: Food Log Not Reviewed Next Visit: Pre-op follow-up visit; recommended Support Group via Zoom documented in this encounter Plan of Treatment Upcoming Encounters Date Type Department Care Team (Late st Contact Info) Description 10/02/2024 14:45 EDT Office Visit [facility] Urology - [address] [address] Pipo Jane MD [address] [place] [address], [address] [place] [phone] documented as of this encounter Visit Diagnoses Diagnosis Morbid obesity ([facility])- Primary Morbid obesity BMI 60.0-69.9, adult ([facility]) Body Mass Index 60.0-69.9, adult documented in this encounter Historical Medications * This list may reflect changes made after this encounter. propranolol HCl (PROPRANOLOL ORAL) Take by mouth. added in this encounter Care Teams Comb Winder Relationship Specialty Start Date End Date Pipo Frazier, JEDC PCP - General 10/05/19 10/21/21 documented as of this encounter
--- OUTSIDE RECORDS SUMMARY | 2024-07-13 14:53 | XMS_ITS | Encounter Summary ---
Author Organization [facility] Address [address] [place] [address] Care Team Providers Care Pega Developer Name Role Phone Pipo Frazier PA-C Primary Care Provider [phone] [phone] Keena Rosales APRN Primary Care Provider [phone] [phone] Encounter Details Date Type Department Care Team (Late st Contact Info) Description 10/29/2020 Lab Requisition [facility] Pathology & Laboratory Medicine - [address] [id number] Outr Resulting Lab, Provider Social History Tobacco [...] Info) Description 10/02/2024 14:45 EDT Office Visit [facility] Urology - [address] [phone] Pipo Jane MD [address] [facility], [address] [place] [address] documented as of this encounter Procedures Procedure Name Priority Date/Time Associated Diagnosis Comments TRINITYCOVID-19 TEST [facility] PCR Today 10/29/2020 16:26 EDT COVID-19 TESTING Routine 10/29/2020 16:2 6 EDT documented in this encounter Results * COVID-19 TEST [facility] PCR (10/29/2020 16:26 EDT) Swab ENTIRE NASOPHARYNX / Unknown 10/29/2020 16:26 EDT 10/29/2020 21:20 EDT us Provider Outr Resulting Lab MICROBIOLOGY - GENER AL ORDERABLES Final Result [facility] [address] [place] [address] * COVID-19 TESTING (10/29/2020 16:26 EDT) COVID-19 rt-PCR Result Negative Negative 10/30/2020 16:59 EDT [facility] Comment: This test has [...] was performed using the escobar SARS-CoV-2 assay ([employer] on the Escobar 6800 System Performing Lab Escobar 6800 [facility] 10/30/2020 16:59 EDT [facility] Swab 10/29/2020 16:2 6 EDT 10/29/2020 21:20 EDT us Provider Outr Resulting Lab MICROBIOLOGY - GENER AL ORDERABLES Final Result [facility] [address] [place] [address] documented in this encounter Visit Diagnoses Not on filedocumented in this encounter Additional Health Concerns Infection Onset Date Last Indicated Resolved Time COVID-19 03/25/2021 03/25/2021 04/14/2021 22:1 5 EDT documented as of this encounter Care Teams Pega Developer Relationship Specialty Start Date End Date Pipo Frazier PA-C PCP - General 10/05/19 10/21/21 Keena Rosales APRN [address] [place] [address] PCP - General 10/22/21 documented as of this encounter
--- OUTSIDE RECORDS SUMMARY | 2024-07-13 14:53 | XMS_ITS | Encounter Summary ---
Author Organization [facility] Address [address] [place] [address] Care Team Providers Care Mine Engineering Superintendent Name Role Phone Keena Rosales Maurice ORONA Primary Care Provider [phone] [phone] Encounter Details Date Type Department Care Team (Late st Contact Info) Description 10/19/2022 Lab Requisition [facility] Pathology & Laboratory Medicine - [address] [id number] Outr Resulting Lab, Provider Social History Tobacco [...] Visit [facility] Urology - [address] [address] Pipo Jane MD [address] [place] [address], [address] [place] [phone] documented as of this encounter Procedures Procedure Name Priority Date/Time Associated Diagnosis Comments SPEP, INCLUDES QUANTITATION OF MONOCLONAL SPIKE PERFORMABLE Today 10/19/2022 9:15 EDT HOLD SST Today 10/19/2022 9:15 EDT SERUM FREE LIGHT CHAINS Today 10/20/19 9:15 EDT IMMUNOGLOBULINS Today 10/19/2022 9:15 EDT SPEP, INCLUDES QUANTITATION OF MONOCLONAL SPIKE Today 10/19/2022 9:15 EDT PROTEIN, TOTAL Today 10/19/2022 9:15 EDT HAPTOGLOBIN Today 10/19/2022 9:15 EDT FOLATE Today 10/19/2022 9:15 EDT documented in this encounter Results * HOLD SST (10/19/2022 9:15 EDT) Hold Hold 10/19/2022 22:[address] [facility] Blood VENOUS BLOOD / Unknown 10/19/2022 9:15 EDT 10/19/2022 21:40 EDT us Provider Outr Resulting Lab LAB INFO SERVICE AND SUPPORT & PHONE RESULT Final Result [facility] [address] [place] [address] * (ABNORMAL) SPEP, INCLUDES QUANTITATION OF MONOCLONAL SPIKE PERFORMABLE (10/19/2022 9:15 EDT) Albumin % 56.2 55.8 - 66.1 % 10/20/2022 13:[address] [facility] Albumin g/dL 3.8 3.6 - 5.2 g/dL 10/20/2022 13:[address] [facility] Alpha-1 % 5.1(H) 2.9 - 4.9 % 10/20/2022 13:26 [facility] Alpha-1 g/dL 0.30 0.15 - 0.40 g/dL 10/20/2022 13:26 [facility] Alpha-2 % 10.6 7.1 - 11.8 % 10/20/2022 13:26 [facility] Alpha-2 g/dL 0.70 0.50 - 1.00 g/dL 10/20/2022 13:26 [facility] Beta % 14.3(H) 8.4 - 13.1 % 10/20/2022 13:26 [facility] Beta g/dL 1.00 0.60 - 1.20 g/dL 10/20/2022 13:26 [facility] Gamma % 13.8 11.1 - 18.8 % 10/20/2022 13:26 [facility] Gamma g/dL 0.90 0.60 - 1.60 g/dL 10/20/2022 13:26 [facility] SPEP Comment No apparent monoclonal protein seen on serum electrophoresis 10/20/2022 13:26 [facility] Comment:See scanned/suppleme ntary report. Total Protein 6.8 6.3 - 8.2 g/dL 10/20/2022 13:26 [facility] Blood VENOUS BLOOD / Unknown 10/19/2022 9:15 EDT 10/19/2022 21:39 EDT us Provider Outr Resulting Lab CHEMISTRY & BLOOD GA S ORDERABLES Final Result [facility] [address] [place] [address] * PROTEIN, TOTAL (10/19/2022 9:15 EDT) Blood VENOUS BLOOD / Unknown 10/19/2022 9:15 EDT 10/19/2022 21:39 EDT us Provider Outr Resulting Lab CHEMISTRY & BLOOD GA S ORDERABLES Final Result Performing Organization Address City/[facility]/ZIP Co de Phone Number [facility] [address] [place] [address] * (ABNORMAL) SERUM FREE LIGHT CHAINS (10/19/2022 9:15 EDT) Pathologist [facility] [place] Free Lt Chain 1.98(H) 0.33 - 1.94 mg/dL 10/20/2022 9:39 ED[address] [facility] Lambda Free Lt Chain 1.35 0.57 - 2.63 mg/dL 10/20/2022 9:39 ED[address] [facility] [place]/Lambda Ratio 1.47 0.26 - 1.65 10/20/2022 9:39 ED[address] [facility] Blood VENOUS BLOOD / Unknown 10/19/2022 9:15 EDT 10/19/2022 21:39 EDT us Provider Outr Resulting Lab CHEMISTRY & BLOOD GA S ORDERABLES Final Result Performing Organization Address [facility] Co de Phone Number [facility] [address] [place] [address] * IMMUNOGLOBULINS (10/19/2022 9:15 EDT) Pathologist [facility] IgG 913 610 - 1,616 mg/dL 10/20/2022 9:39 ED[address] [facility] IgA 348 85 - 499 mg/dL 10/20/2022 9:39 ED[address] [facility] IgM 52 35 - 242 mg/dL 10/20/2022 9:[address] [facility] Blood VENOUS BLOOD / Unknown 10/19/2022 9:15 EDT 10/19/2022 21:39 EDT us Provider Outr Resulting Lab CHEMISTRY & BLOOD GA S ORDERABLES Final Result Performing Organization Address City/[facility]/ZIP Co de Phone Number [facility] [address] [place] [address] * HAPTOGLOBIN (10/19/2022 9:15 EDT) Pathologist [facility] Haptoglobin 185 32 - 197 mg/dL 10/20/2022 9:39 [address] [facility] Blood VENOUS BLOOD / Unknown 10/19/2022 9:15 EDT 10/19/2022 21:39 EDT us Provider Outr Resulting Lab CHEMISTRY & BLOOD GA S ORDERABLES Final Result Performing Organization Address City/[facility] Co de Phone Number [facility] [address] [place] [address] * FOLATE (10/19/2022 9:15 EDT) [facility] Folate 9.0 See Note ng/mL 10/19/2022 22:[address] [facility] Comment: Reference Ranges for Folate: Deficient: ?< 3.4 ng/mL Indeterminate: ??3.4 - 5.4 ng/mL Normal: ? > 5.4 ng/mL The results of this assay can be falsely elevated due to the consumption of Biotin. Blood VENOUS BLOOD / Unknown 10/19/2022 9:15 EDT 10/19/2022 21:39 EDT Provider Outr Resulting Lab CHEMISTRY & BLOOD GA S ORDERABLES Final Result Performing Organization Address [facility] Co de Phone Number [facility] [address] [place] [address] documented in this encounter Visit Diagnoses Not on filedocumented in this encounter Care Teams Mine Engineering Superintendent Relationship Specialty Start Date End Date Keena Rosales APRN [address] [facility] [address] [place] [address] PCP - General 10/22/21 documented as of this encounter
--- OUTSIDE RECORDS SUMMARY | 2024-07-13 14:53 | XMS_ITS | Encounter Summary ---
Author Organization [facility] Address [address] [place] [address] Care Team Providers Care Engineering Assistant Name Role Phone Pipo Frazier PA-C Primary Care Provider [phone] [phone] Reason for Visit * Reason Comments Obesity pre op Encounter Details Date Type Department Care Team (Late st Contact Info) Description 10/23/2020 15:15 EDT Telemedicine [facility] Bariatric Surgery [place] [address] [place] [address] Junior Stapleton PA-C [address] [facility], [facility], [address] [place] [address] Morbid obesity (HCC-CMS) (Primary Dx); [...] - - Weight 220.4 kg (486 lb) 10/23/2020 151 EDT Height 181.6 cm (5' 11.5) 10/23/2020 151 EDT Body Mass Index 66.85 10/23/20201510 EDT documented in this encounter Progress Notes * Junior Stapleton PA-C - 10/23/20201514 EDT 10/23/2020 SUBJECTIVE: René returns to our office today [...] He has lost 0 of 48 pounds, anxiety has been significant for him recently but he is still working on his improving dietary habits and keeping up on the exercise. This was a telemedicine health visit by telephone due to the global health crisis with Zully Peralta. I spent a total of 5 minutes with René Wayne today as described in the progress note. Junior Stapleton PA-C * Raudel Carrillo RD - 10/23/20201514 EDT Medical Nutrition Evaluation-PRE OP NOTE Bariatric Clinic Nutrition Pre-op Visit Visit Number: 9 Desired surgery: Gastric Sleeve Subjective: I have had a lot of anxiety due to work and home. My new mattress has been causing back pain whichincreases my anxiety. I just got the Bennie and Bennie shot and I am anxious about it. I have been adding more vegetables with color. I want to add 12 hour fast a few days a week. [facility]: [facility] Meal pattern: 2-3 scrambled eggs/ yogurt and orange; Salad/onions/greens/ meat/cheese and hearty soups for supper consisting of meat/veggies Average caloric intake:~2300 Meal composition: CHO is 30%; Fats 35% and protein is 35% Snacking:[place] breeze Yogurt X 1-2 for work, small serving of nuts/cheese Fluid Intake:~96 oz a day Exercise: Gym 25 min(Cardio) X 4-5 days a week Objective: Weight: 486 lbs Weight loss from last visit: +3 lbs Total weight loss: Weight loss goal: Total Loss in lbs (Weight from Initial Consult - Today's Weight): 0.2 lbs Approximately 48 lbs Surgery Date: Significant Medications and Supplements: MVM, Vit D weekly Assessment: Patient has made progress towards lifestyle changes Comments:Marquez is considering Intermittent fasting for 12 hours a few days a week. He has tried somefish. He usually eats the same meals to help him lose weight. Suggested he could safely swap lean protein to lean protein and veggies to other veggies and help decrease boredom with his meal choices.He is looking into [employer]. Suggested recipe ideas on [employer] website. Reviewed blended diethomework guidelines. Plan: Diet Goals: Keep food records Exercise Goals: Increase time to 150+ minutes a week Weight Loss Goal: Approximately 48 lbs Weight Loss Remaining to Goal: Approximately 48.2 lbs Reviewed: Food Log Not Reviewed Next Visit: Pre-op follow-up visit; check blended diet homework menus documented in this encounter Plan of Treatment Upcoming Encounters Date Type Department Care Team (Late st Contact Info) Description 10/02/2024 14:45 EDT Office Visit [facility] Urology - [address] [phone] Pipo Jane MD [address] [place] [address], [address] [place] [phone] documented as of this encounter Visit Diagnoses Diagnosis Morbid obesity ([facility])- Primary Morbid obesity BMI 60.0-69.9, adult ([facility]) Body Mass Index 60.0-69.9, adult documented in this encounter Care Teams Engineering Assistant Relationship Specialty Start Date End Date Pipo Frazier PA-C PCP - General 10/05/19 10/21/21 documented as of this encounter
--- OUTSIDE RECORDS SUMMARY | 2024-07-13 14:53 | XMS_ITS | Encounter Summary ---
Author Organization [facility] Address [address] [place] [address] Care Team Providers Care Deputy Clerk Of Court Name Role Phone Pipo Frazier PA-C Primary Care Provider [phone] [phone] Reason for Visit * Reason Comments Obesity Encounter Details Date Type Department Care Team (Late st Contact Info) Description 04/16/2020 8:30 EDT Nutrition [facility] Bariatric Surgery [address] [phone] Raudel Carrillo, RD [address] [place] [address] Body mass index 60.0-69.9, adult ([facility]); Morbid obesity ([facility]) Social History Tobacco Use Types Packs/Day Years [...] - - Weight 220 kg (485 lb) 04/16/2020 0830 EDT Height 181.6 cm (5' 11.5) 04/16/2020 0830 EDT Body Mass Index 66.71 04/16/2020 0830 EDT documented in this encounter Progress Notes * Raudel Carrillo RD - 04/16/2020 0830 EDT Bariatric Clinic Nutrition Class - Post Operative Diet Visit #: 4 Weight : (!) 220 kg (485 lb),Weight at initial consult: 220.5 kg (486 lb 3.2 oz) Change in Weight:No change Goal Weight:438.2 lbs Desired Surgery:Gastric Sleeve Patient attended class on The post operative diet after bariatric surgery. Topics discussed: Diet while in hospital, Diet Progression (Liquids, Blended, Soft Solids, Solids), Portion Control, Importance of Excercise, Importance of Food Diary and Recommended Protein Supplements Education was provided via slides, verbal instruction, samples, and written materials. Homework assignment(s) explained to patient and patient instructed to return them at the next visit.Copies of Gastric Sleeve booklet, alcohol policy, power point presentation and homework explanationwere mailed prior to class The Post op Nutrition Class is 120 min in length. There were seven people in the televideo class. TELEMEDICINE VIDEO VISIT Today's visit was provided through telemedicine video conferencing: The location of the patient : Home The location of the provider: Office The following staff and their role did participate in today's encounter visit: Raudel Carrillo RD documented in this encounter Plan of Treatment Upcoming Encounters Date Type Department Care Team (Late st Contact Info) Description 10/02/2024 14:45 EDT Office Visit [facility] Urology - [address] [address] Pipo Jane MD [address] [place] [address], [address] [place] [phone] documented as of this encounter Visit Diagnoses Diagnosis Body mass index 60.0-69.9, adult ([facility]) Body Mass Index 60.0-69.9, adult Morbid obesity ([facility]) Morbid obesity documented in this encounter Care Teams Deputy Clerk Of Court Relationship Specialty Start Date End Date Pipo Frazier PA-C PCP - General 10/05/19 10/21/21 documented as of this encounter
--- OUTSIDE RECORDS SUMMARY | 2024-07-13 14:53 | XMS_ITS | Encounter Summary ---
Author Organization [facility] Address [address] [place] [address] Care Team Providers Care Tenant Selector Name Role Phone Pipo Frazier PA-C Primary Care Provider [phone] Reason for Visit * Reason Comments Obesity pre op Encounter Details Date Type Department Care Team (Late st Contact Info) Description 10/08/2021 11:15 EDT Office Visit [facility] Bariatric Surgery [address] [address] Junior Stapleton PA-C [address] [facility], [facility], [address] [place] [address] Morbid obesity (HCC-CMS) (Primary Dx); [...] - Inhaled Oxygen Concentration - - Weight 236.9 kg (522 lb 3.2 oz) 10/08/2021 1124 EDT Height 181.6 cm (5' 11.5) 10/08/2021 1124 EDT Body Mass Index 71.83 10/08/2021 1124 EDT documented in this encounter Progress Notes * Raudel Carrillo, RD - 10/08/2021 1115 EDT Medical Nutrition Evaluation-PRE OP NOTE Bariatric Clinic Nutrition Pre-op Visit Visit Number: 15 Desired surgery: Gastric Sleeve Subjective: Doctor put me on Victoza two weeks ago. My doctor thinks my anxiety medication is causing wt gain.My doctor is trying to wean me off the anxiety medication. I do not know if I am hungry or bored with my eating. I never feel full Food logs: Myfitnesspal Meal pattern:2 oz Lite cheese, 4 eggs and an apple for breakfast; Rehabilitation Physician salad with Chicken and 2 cups blueberries for lunch and [place] burger 3 pieces, broccoli, chandler and 2 oz of 50% lite cheese for dinner Average caloric intake:~2500 Meal composition: 31-36% CHO; 33-38% fats and 31-32% protein ; 37 g fiber a day Snacking:Apple, Lite popcorn X 3 cups , Blueberries 2 cups Fluid Intake:80-96 oz water Coolaid unsweetened X 4 glasses; rarely green tea Exercise: Gym walking 20-30 min X 3-4 per week Objective: Weight: 522.2 lbs Weight loss from last visit: +13.6 lbs Total weight loss: Weight loss goal: Total Loss in lbs (Weight from Initial Consult - Today's Weight): -36 lbs Approximately 48 lbs Surgery Date: Significant Medications and Supplements: Victoza, vitamin D Assessment: Patient has made progress towards lifestyle changes Comments: Marquez was last seen in clinic in May. He has been dealing with anxiety. He recently started Victoza and started keeping food logs. Food records reveal good meal choices. He has also been exercising consistently. Encouraged continuing food logs and exercise. Plan: Diet Goals: continue current meal pattern, watch total calorie intake; aim for ~2200 calories a day Exercise Goals: Maintain current exercise Weight Loss Goal: Approximately 48 lbs Weight Loss Remaining to Goal: Approximately 84 lbs Reviewed: Food/Activity Record Next Visit: Pre-op follow-up visit; attend support group * Junior Stapleton PA-C - 10/08/2021 1115 EDT 10/08/2021 SUBJECTIVE: René returns to our office today [...] his Ht 181.6 cm (71.5) Wt (!) 236.9 kg (522 lb 3.2 oz) BMI 71.83 kg/m?? and Body mass index is 71.83 kg/m??.. ASSESSMENT AND PLAN: René will return to our office in a few weeks for continued medically-supervised weight loss in preparation for surgery. He understands that: He is up from his initial weight, goal 48 pounds. He has been doing low carb diet. We are working with him to be more balanced in his eating as he is eating more protein than he can absorb. He should also monitor his sodium intake as his weight fluctuates rapidly. Junior Stapleton PA-C documented in this encounter Plan of Treatment Upcoming Encounters Date Type Department Care Team (Late st Contact Info) Description 10/02/2024 14:45 EDT Office Visit [facility] Urology - [facility] [address], [place] [id number] Pipo Jane MD 111 [facility], [address] [place] [address] documented as of this encounter Visit Diagnoses Diagnosis Morbid obesity ([facility])- Primary Morbid obesity BMI 70 and over, adult ([facility]) Body Mass Index 70 and over, adult documented in this encounter Historical Medications * This list may reflect changes made after this encounter. liraglutide (VICTOZA) 0.6 mg/0.1 mL (18 mg/3 mL) injectable pen Inject 1.8 mg into the skin daily. added in this encounter Care Teams Tenant Selector Relationship Specialty Start Date End Date Pipo Frazier, JEDC PCP - General 10/05/19 10/21/21 documented as of this encounter
--- OUTSIDE RECORDS SUMMARY | 2024-07-13 14:53 | XMS_ITS | Encounter Summary ---
Author Organization [facility] Address [address] [place] [address] Care Team Providers Care Highway Design Engineer Name Role Phone Pipo Frazier PA-C Primary Care Provider [phone] Keena Rosales APRN Primary Care Provider [phone] Encounter Details Date Type Department Care Team (Late st Contact Info) Description 08/13/2020 Lab Requisition [facility] Pathology & Laboratory Medicine - [address] [id number] Outr Resulting Lab, Provider Social History Tobacco [...] Office Visit [facility] Urology - [address] [id number] Pipo Jane MD 111 [facility], [address] [place] [address] documented as of this encounter Procedures Procedure Name Priority Date/Time Associated Diagnosis Comments ACUTE HEPATITIS PROFILE Routine 08/12/2020 10:55 EST documented in this encounter Results * ACUTE HEPATITIS PROFILE (08/12/2020 10:55 EST) Hep B Surface Ag Negative Negative 08/14/2020 10:22 EST [facility] Hep C Antibody Negative Negative 08/14/2020 10:22 EST [facility] Hepatitis A Antibody, IgM Negative Negative 08/14/2020 10:22 EST [facility] Comment:The results of this assay can be falsely lowered due to the consumption of Biotin. Hepatitis B Core Ab, Total Negative Negative 08/14/2020 10:22 EST [facility] Blood VENOUS BLOOD / Unknown 08/12/2020 10:55 EST 08/13/2020 16:13 EST us Provider Outr Resulting Lab CHEMISTRY & BLOOD GA S ORDERABLES Final Result [facility] [address] [place] [address] documented in this encounter Visit Diagnoses Not on filedocumented in this encounter Additional Health Concerns Infection Onset Date Last Indicated Resolved Time COVID-19 03/25/2021 03/25/2021 04/14/2021 22:1 5 EDT documented as of this encounter Care Teams Highway Design Engineer Relationship Specialty Start Date End Date Pipo Frazier PA-C PCP - General 10/05/19 10/21/21 Keena Rosales APRN [address] [place] [id number] PCP - General 10/22/21 documented as of this encounter
--- OUTSIDE RECORDS SUMMARY | 2024-07-13 14:54 | XMS_ITS | Encounter Summary ---
Author Organization [facility] [place] [address] Care Team Providers Care Sewer And Cutter Finger Buff Material Name Role Phone Keena Rosales APRN Primary Care Provider [phone] Reason for Visit * Consultation (Routine) - Closed Specialty Diagnoses / Procedures Referred By Alma ortega Referred To Contact Urology Diagnoses Male infertility, unspecified Keena Rosales APRN [address] [place] [address] [facility] [place] [address] Referral ID Status Reason Start Date Expiration Date V isits Requested Visits Authorized [id number] Closed Consult, Test & Treat PCP Updated and/or Approved 05/26/2023 05/25/2024 6 6 Encounter Details Date Type Department Care Team (Late st Contact Info) Description 10/11/2023 9:00 AM EDT [place] [phone] [facility] [place] [address] At risk for fertility problems; Erectile dysfunction, unspecified erectile dysfunction type Social History Tobacco Use Types Packs/Day Years Used Date Smoking Tobacco: Former Cigarettes Smokeless Tobacco: Never Comments:Rare cigarette in h igh school Alcohol Use Standard Drinks/Week Comments Not Currently 0 (1 standard drink = 0.6 oz pur e alcohol) Overall Financial Resource Strain (CARDIA) Answe r Date Recorded How hard is it for you to pa y for the very basics like food, housing, medical care, and heating? Not very hard 10/14/2022 Hunger Vital Sign Answer Date Recorded Within the past 12 months, y ou worried that your food would run out before you got the money to buy more. Never true 10/15/19 23 Within the past 12 months, t he food you bought just didn't last and you didn't have money to get more. Never true 10/14/2022 PRAPARE - Transportation Answer Date Re corded In the past 12 months, has l ack of transportation kept you from medical appointments or from getting medications? No 12/2022 In the past 12 months, has l ack of transportation kept you from meetings, work, or from getting things needed for daily living? No 10/14/2022 Housing Stability Vital Sign Answer Manoj e Recorded In the last 12 months, was t here a time when you were not able to pay the mortgage or rent on time? No 10/14/2022 In the last 12 months, how many places have you lived? 1 10/14/2022 In the last 12 months, was t here a time when you did not have a steady place to sleep or slept in a usp (including now)? No 10/14/2022 DH IPV Inpatient Questions Answer Date Recorded Does Anyone Try to Keep You From Having Contact with Others or Doing Things Outside Your Home? unable to answer (comment required) 07/27/2023 Feels Threatened by Someone unable to an swer (comment required) 07/27/2023 Feels Unsafe at Home or Work/School unab le to answer (comment required) 07/27/2023 Physical Signs of Abuse Present no 07/27/2023 Sex and Gender Information Value Date Recorded Sex Assigned at Not on file Gender Identity Not on file Sexual Orientation Not on file documented as of this encounter Last Filed Vital Signs Vital Sign Reading Time Taken Comments Blood Pressure 132/80 10/11/2023 9:20 AM EDT Pulse 68 10/11/2023 9:20 AM EDT Temperature - - Respiratory Rate - - Oxygen Saturation - - Inhaled Oxygen Concentration - - Weight - - Height - - Body Mass Index - - documented in this encounter Progress Notes * Sebas Alcantara MD - 10/11/2023 9:00 AM EDT S: I have been requested by Keena Rosales to see Mr. Wayne for my opinion regarding his fertilityconcerns. He is a very pleasant 38-year-old gentleman and his partner is 36 years old. They have been engaging in unprotected vaginal intercourse for the last 9 years. They do not use lubricants during sexual activity. He has no history of prior successful conception. He has no history of infertility concerns in his family. His partner has had an unremarkable infertility work up. She has no history of prior successful conception. She has no history of infertility concerns in her family. He denies a history of scrotal trauma. He denies a history of other genital or pelvic trauma. Previous scrotal surgery history denies. He denies any chemical exposure through work. He denies history of chemotherapy or radiation exposure. He denies a history of fevers of unknown origin. He wears boxers for underwear. He notes a occasional history of hot tub/sauna use. He says his penile rigidity is approximately 100% at best without medications, but with poor sustaining. He has tried no PDE5 inhibitors in the past. His intentional erections are intact. His sustaining capacities are poor. Nocturnal/morning spontaneous erections are occasional, less firm than previous, and less frequent than previous. He rates his sexual desire at 100% and says it is intact. He says his ejaculation and orgasm are delayed, likely due to antidepressant use. Orgasmic capability is intact. He denies significant penilecurvature. He denies penile pain. He denies a history of penile trauma. He denies a history of pelvic or perineal trauma. He denies a history of regular bicycle riding. Previous semen analysis history is denied. Other issues are denied. Past medical history is notable for anxiety and depression, constipation, obesity, hypertension, hyperlipidemia, sleep apnea, TIA, panic attacks, SUDHA, fatty liver, Past surgical history includes cholecystectomy, gastric bypass. From a social perspective, he denies ever smoking. Alcohol usage is denied. Street drug usage is denied. He is in a mcfp relationship. 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 Family history is negative for any genitourinary cancers. He has trazodone and Wellbutrin allergies. His medications were reviewed and are consistent with those in the electronic medical record. A review of systems was performed and he has no pertinent positives, except for those listed in thehistory of present illness. O: On physical exam today he is in general a healthy, well-appearing man. He is awake, alert and oriented to person place and time. Mood and affect are normal. Gait: Normal and neurologically intact. No focal motor or sensory deficits are noted. Skin: Skin is warm and dry. There are no visible scars, rashes or lesions. HEENT: He is normocephalic and atraumatic. There is no scleral icterus. Pupils are equally round and reactive to light and accommodation. Extraocular motions intact. Trachea is midline. Lungs: No audible wheezing, normal respiratory effort. Chest rise is symmetric. Extremities: Extremities do not demonstrate clubbing, cyanosis or edema. His abdomen is soft, nontender, nondistended. There is no abdominal tenderness, guarding or rebound. No abdominal or inguinal hernias are seen. His phallus is circumcised. There are no penile lesions or palpable plaques. He has a patent, orthotopic urinary meatus. Both testes are scrotally located. The bilateral cords are palpable and withinnormal limits. Bilateral vasa are palpable. There are no testicular masses or nodules bilaterally. His scrotum is without edema or erythema. A digital rectal exam was deferred. A: This is a 32-year-old gentleman with fertility concerns. He also has erectile dysfunction.. P: We discussed potential etiologies of infertility in detail today. I recommended obtaining a semen analysis for further evaluation. I have given him detailed instructions on how to complete this and ordered the semen analysis to be performed here at [facility]. I will contact him with these results. I explained that abnormal results would warrant repeat semen analysis as well as further lab work. He expressed understanding and wishes to proceed. Regarding his erectile dysfunction, I explained that this will likely improve with continued weightloss and exercise. Will continue to monitor. He expressed understanding of this plan, and all questions were answered to his satisfaction. I will keep you updated as we move forward. Thank you very much for this kind referral. Please do not hesitate to contact me if you have any questions. documented in this encounter Plan of Treatment Upcoming Encounters Date Type Department Care Team (Late st Contact Info) Description 08/17/2024 11:00 AM EST Office [place] [address] [facility] [address] [facility] [address] documented as of this encounter Goals Goal Patient Goal Type Associated Problems Recent Progress Patient-Stated? Author Follow your diet plan as advised by your line servicer Courtney Owens RD Note: Images from the original note were not included. Nutrtion Goals: 04/25/23 TF Nutrition Goals: 03/28/23 TF Review and continue to work on the Eating Behaviors for success post gastric bypass Nutrition Goals updated today: 10/22/22 TF 1. Try Bolthouse dressing to reduce calories and increase in place Ranch 2. Work towards reducing total calroeus gradually to aim for 2847-6980 kcals (aim to reduce each meal by 100 kcals) Nutrition Goals updated today: 09/24/22 TF 1. Practice eating and drinking by 30 minutes on either side - successful at work; a little more difficult at home 2. Track all food for the next 4 weeks in to My Fitness Pal - aim for 2,000 calories/day at most; low carb; averaging ~ 1,900 kcals documented as of this encounter Results * Semen Analysis - Tong (10/21/2023) Semen 10/21/2023 Sebas Alcantara MD REPRODUCTIVE SCIENCE S ORDERABLES documented in this encounter Visit Diagnoses Diagnosis At risk for fertility problems Other specified conditions influencing health status Erectile dysfunction, unspecified erectile dysfunction type documented in this encounter Care Teams Sewer And Cutter Finger Buff Material Relationship Specialty Start Date End Date Keena Rosales APRN [address] [place] [address] PCP - General Family Medicine 11/04/21 documented as of this encounter
--- OUTSIDE RECORDS SUMMARY | 2024-07-13 14:54 | XMS_ITS | Encounter Summary ---
Author Organization [facility] [place] [address] Care Team Providers Care Pitch Gatherer Name Role Phone Keena Rosales APRN Primary Care Provider [phone] [phone] Encounter Details Date Type Department Care Team (Latest Contact Info) Description 11/18/2023 8:15 AM EDT Laboratory Appointment Lab [address] [place] [phone] Research study patient; S/P gastric bypass; Disorder of iron metabolism; Vitamin D deficiency; Intestinal malabsorption, unspecified type Social History Tobacco Use Types Packs/Day [...] place to sleep or slept in a assisted (including now)? No 10/14/2022 IPV Inpatient Questions Answer Date Recorded Does [...] AM EST Office [place] [address] Lamar Alonzo MD [facility] [address] [facility] [place] [address] documented as of this encounter Goals Goal Patient Goal Type Associated Problems Recent Progress Patient-Stated? Author Follow your diet plan as advised by your inletter Courtney Owens RD Note: Images from the original note were not included. Nutrtion Goals: 04/25/23 TF Nutrition Goals: 03/28/23 TF Review and continue to work on the Eating Behaviors for success post gastric bypass Nutrition Goals updated today: 10/22/22 TF 1. Try Bolthouse dressing to reduce calories and increase in place Ranch 2. Work towards reducing total calroeus gradually to aim for 7421-5926 kcals (aim to reduce each meal by [...] 1,900 kcals documented as of this encounter Procedures Procedure Name Priority Date/Time Associated Diagnosis Comments PTH Routine 11/18/2023 8:27 AM EDT Research study patient S/P gastric bypass Disorder of iron metabolism Vitamin D deficiency Intestinal malabsorption, unspecified type HEMOGRAM Routine 11/18/2023 8:27 AM EDT Research study patient S/P gastric bypass Disorder of iron metabolism Vitamin D deficiency Intestinal malabsorption, unspecified type VITAMIN B1, WHOLE BLOOD Routine 11/18/2023 8:27 AM EDT Research study patient S/P gastric bypass Disorder of iron metabolism Vitamin D deficiency Intestinal malabsorption, unspecified type IRON AND TIBC Routine 11/18/2023 8:27 AM EDT Research study patient S/P gastric bypass Disorder of iron metabolism Vitamin D deficiency Intestinal malabsorption, unspecified type VITAMIN D, 25-HYDROXY Routine 11/18/2023 8:27 AM EDT Research study patient S/P gastric bypass Disorder of iron metabolism Vitamin D deficiency Intestinal malabsorption, unspecified type FOLATE, SERUM Routine 11/18/2023 8:27 AM EDT Research study patient S/P gastric bypass Disorder of iron metabolism Vitamin D deficiency Intestinal malabsorption, unspecified type FERRITIN Routine 11/18/2023 8:27 AM EDT Research study patient S/P gastric bypass Disorder of iron metabolism Vitamin D deficiency Intestinal malabsorption, unspecified type VITAMIN B12 Routine 11/18/2023 8:27 AM EDT Research study patient S/P gastric bypass Disorder of iron metabolism Vitamin D deficiency Intestinal malabsorption, unspecified type COMPREHENSIVE METABOLIC PANEL Routine 11/18/2023 8:27 AM EDT Research study patient S/P gastric bypass Disorder of iron metabolism Vitamin D deficiency Intestinal malabsorption, unspecified type documented in this encounter Results * Vitamin B1, whole blood (11/18/2023 8:27 AM EDT) Vit B1 Lvl Wb (NOVEMBER) 135 70 - 180 nmol/L [facility] Comment: ADDITIONAL INFORMATION This test was developed and its performance characteristics determined by [facility] in a manner consistent with CLIA requirements. This test has not been cleared or approved by the U.S. Food and Drug Administration. Test Performed by: [facility] - [address] [address] Fern Picker: Quincy Plummer M.D. Ph.D.; CLIA# [id number] Blood 11/18/2023 8:27 AM EDT 11/18/2023 12:31 PM EDT Narrative Resulting Agency Comment Spec In Lab Katherin Obando APRN LAB SEND OUT ORD ERABLES Performing Organization Address City/[facility]/ZIP Co de Phone Number [facility] [place] [address] * Vitamin D, 25-Hydroxy (11/18/2023 8:27 AM EDT) Vitamin D Total 25 OH 34 21 - 100 ng/mL [facility] Vit D Interp Sufficient [facility] Blood 11/18/2023 8:27 AM EDT 11/18/2023 8:36 AM EDT Narrative Resulting Agency Comment Spec In Lab Katherin Obando APRN CHEMISTRY ORDERA BLES Performing Organization Address City/[facility]/ZIP Co de Phone Number [facility] [place] [address] * PTH (11/18/2023 8:27 AM EDT) Parathyroid Hormone 54 15 - 65 pg/mL [facility] Blood 11/18/2023 8:27 AM EDT 11/18/2023 8:36 AM EDT Narrative Resulting Agency Comment Spec In Lab Katherin Elena HowardLeitchfielddaryn [place] CHEMISTRY ORDERA BLES Performing Organization Address [facility] Co de Phone Number [facility] [place] [address] * Folate, serum (11/18/2023 8:27 AM EDT) Folate 16.6 4.8 - 24.2 ng/mL [facility] Blood 11/18/2023 8:27 AM EDT 11/18/2023 8:36 AM EDT Narrative Resulting Agency Comment Spec In Lab Katherin Obando APRN CHEMISTRY ORDERA BLES Performing Organization Address [facility] Co de Phone Number [facility] [place] [address] * Ferritin (11/18/2023 8:27 AM EDT) Ferritin 228 31 - 409 ng/mL [facility] Comment: Please note that as of 06/15/2023, the reference intervals for Ferritin have been updated. Blood 11/18/2023 8:27 AM EDT 11/18/2023 8:36 AM EDT Narrative Resulting Agency Comment Spec In Lab Katherin Elena Leitchfield [employer] CHEMISTRY ORDERA BLES Performing Organization Address [facility] Co de Phone Number [facility] [place] [address] * (ABNORMAL) Iron and TIBC (11/18/2023 8:27 AM EDT) Iron 44(L) 45 - 160 mcg/dL [facility] TIBC 262 250 - 450 mcg/dL [facility] Iron Saturation 17(L) 20 - 50 % [facility] Blood 11/18/2023 8:27 AM EDT 11/18/2023 8:36 AM EDT Narrative Resulting Agency Comment Spec In Lab Katherin Obando [employer] CHEMISTRY ORDERA BLES [facility] [place] [address] * (ABNORMAL) Comprehensive metabolic panel (non-fasting) (11/18/2023 8:27 AM EDT) Glucose 101 65 - 199 mg/dL [facility] Comment:Diabetes: >=200 mg/d L plus symptoms Blood Urea Nitrogen 13 10 - 20 mg/dL [facility] Creatinine 0.65(L) 0.80 - 1.50 mg/dL [facility] Sodium 141 135 - 145 mmol/L [facility] Potassium 4.2 3.5 - 5.0 mmol/L [facility] Comment: Please note: ??Patients with WBC >100,000 may have falsely elevated Potassium levels. ??For accurate Potassium quantification in these patients send serum separator tube (gold top) for subsequent determinations. ??Contact the Clinical Chemistry Laboratory if there are any questions. Chloride 105 98 - 107 mmol/L [facility] Carbon Dioxide 27 22 - 31 mmol/L [facility] Anion Gap 9 5 - 15 mmol/L [facility] Calcium 9.4 8.5 - 10.5 mg/dL [facility] Protein, Total 7.0 6.1 - 8.0 g/dL [facility] Albumin 4.0 3.2 - 5.2 g/dL [facility] Aspartate Aminotransferase 14 0 - 39 unit/L [facility] Alanine Aminotransferase 24 0 - 55 unit/L [facility] Alkaline Phosphatase 116 40 - 130 unit/L [facility] Bilirubin, Total 0.2 0.2 - 1.3 mg/dL [facility] Est Glomerular Filtration Rate 124 >=60 mL/min/1. 73 m?? [facility] Comment: This patient's estimated GFR was calculated using the 2020 CKD-EPI equation. The estimated GFR can vary from the measured GFR by up to 30% in the absence of rapidly changing kidney function. Assessment of the estimated GFR is not appropriate when creatinine concentrations are rapidly changing. For clinical situations in which a more precise estimate of GFR is necessary, consider alternative methods of GFR estimation such as a 24-hour urine creatinine clearance. Assignment of CKD stage 1-5 for patients with an eGFR near the transition point between stages may be based on clinical assessment of muscle mass and symptoms in addition to eGFR. Blood 11/18/2023 8:27 AM EDT 11/18/2023 8:36 AM EDT Narrative Resulting Agency Comment Spec In Lab Katherin Obando APRN CHEMISTRY ORDERA BLES [facility] [place] [address] * (ABNORMAL) Hemogram (11/18/2023 8:27 AM EDT) White Blood Cell 8.2 4.0 - 9.5 x10(3)/mc L [facility] Red Blood Cell 4.70 4.58 - 5.54 x10(6)/mc L [facility] Hemoglobin 12.7(L) 13.7 - 16.5 g/dL [facility] Hematocrit 39.2(L) 40.5 - 48.5 % [facility] Mean Cell Volume 83.4 82.9 - 93.1 fL [facility] Mean Cell Hemoglobin 27.0(L) 27.5 - 32.1 pg [facility] Mean Cell Hemoglobin Concentration 32.4 32.0 - 35.7 g/dL [facility] Platelet 344 145 - 357 x10(3)/mc L [facility] RDW Standard Deviation 42.9 36.0 - 45.0 fL [facility] RDW coefficient of variation 14.3(H) 11.4 - 13.8 % [facility] Mean Platelet Volume 8.7 7.6 - 12.9 fL [facility] NRBC% auto 0.0 % [facility] NRBC Absolute 0.000 0.000 - 0.000 x10(3)/mc L [facility] Blood 11/18/2023 8:27 AM EDT 11/18/2023 8:36 AM EDT Narrative Resulting Agency Comment Spec In Lab Katherin Obando APRN HEMATOLOGY ORDER CARON [facility] [place] [address] * Vitamin B12 (11/18/2023 8:27 AM EDT) Vitamin B12 757 232 - 1,245 pg/mL [facility] Blood 11/18/2023 8:27 AM EDT 11/18/2023 8:36 AM EDT Narrative Resulting Agency Comment Spec In Lab Katherin Obando APRN CHEMISTRY ORDERA BLES Performing Organization Address City/[facility]/ZIP Co de Phone Number [facility] [place] [address] documented in this encounter Visit Diagnoses Diagnosis Research study patient Reserved for inherently not codable concepts WITHOUT codable children S/P gastric bypass Bariatric surgery status Disorder of iron metabolism Other disorders of iron metabolism Vitamin D deficiency Unspecified vitamin D deficiency Intestinal malabsorption, unspecified type documented in this encounter Care Teams Pitch Gatherer Relationship Specialty Start Date End Date Keena Rosales APRN [address] [place] [address] PCP - General Family Medicine 11/04/21 documented as of this encounter
--- OUTSIDE RECORDS SUMMARY | 2024-07-13 14:54 | XMS_ITS | Encounter Summary ---
Author Organization [facility] Address [address] [place] [address] Care Team Providers Care Automobile Engine Assembler Name Role Phone Pipo Frazier PA-C Primary Care Provider +1 [phone] Encounter Details Date Type Department Care Team (Latest Contact Info) Description 12/26/2019 Travel Social History Tobacco Use Types Packs/Day Years Used Date Smoking Tobacco: Never Assessed Sex and Gender Information Value Date Recorded Sex Assigned at Not on file Legal Sex Male 12:14 EST Gender Identity Male 10/05/2019 14:05 EDT Sexual Orientation Not on file COVID-19 Exposure Response Date Recorded In the last month, have you been in contact with someone who was confirmed or suspected to have Coronavirus / COVID-19? No / Unsure 12/26/2019 10:02 EDT documented as of this encounter Plan of Treatment Upcoming Encounters Date Type Department Care Team (Late st Contact Info) Description 10/02/2024 14:45 EDT Office Visit [facility] Urology - [facility] [address], [place] [address] iPpo Jane MD [address] [facility], [address] [place] [address] documented as of this encounter Visit Diagnoses Not on filedocumented in this encounter Care Teams Automobile Engine Assembler Relationship Specialty Start Date End Date Pipo Frazier PA-C PCP - General 10/05/19 10/21/21 documented as of this encounter
--- OUTSIDE RECORDS SUMMARY | 2024-07-13 14:54 | XMS_ITS | Encounter Summary ---
Author Organization [facility] Address [facility] [place] [address] Care Team Providers Care Hog Man Name Role Phone Keena Rosales APRN Primary Care Provider [phone] [phone] Encounter Details Date Type Department Care Team (Latest Contact Info) Description 11/12/2023 Travel Social History Tobacco Use Types Packs/Day [...] place to sleep or slept in a correction (including now)? No 10/14/2022 IPV Inpatient Questions [...] AM EST Office [place] [address] Lamar Alonzo MD [facility] [address] [facility] [place] [address] documented as of this encounter Goals Goal Patient Goal Type Associated Problems Recent Progress Patient-Stated? Author Follow your diet plan as advised by your molecular biology scientist Courtney Owens RD Note: Images from the original note were not included. Nutrtion Goals: 04/25/23 TF Nutrition Goals: 03/28/23 TF Review and continue to work on the Eating Behaviors for success post gastric bypass Nutrition Goals updated today: 10/22/22 TF 1. Try Bolthouse dressing to reduce calories and increase in place [place] 2. Work towards reducing total calroeus gradually to aim for 7496-1622 kcals (aim to reduce each meal by [...] 1,900 kcals documented as of this encounter Visit Diagnoses Not on filedocumented in this encounter Care Teams Hog Man Relationship Specialty Start Date End Date Keena Rosaels APRN [address] [place] [address] PCP - General Family Medicine 11/04/21 documented as of this encounter
--- OUTSIDE RECORDS SUMMARY | 2024-07-13 14:54 | XMS_ITS | Encounter Summary ---
Author Organization [facility] Address [facility] [place] [address] Care Team Providers Care Legal Services Manager Name Role Phone Keena Rosales APRN Primary Care Provider [phone] [phone] Encounter Details Date Type Department Care Team (Latest Contact Info) Description 11/18/2023 Travel Social History Tobacco Use Types Packs/Day [...] place to sleep or slept in a retirement (including now)? No 10/14/2022 IPV Inpatient Questions [...] AM EST Office [place] [address] Lamar Alonzo MD [facility] DR [facility] [place] [address] documented as of this encounter Goals Goal Patient Goal Type Associated Problems Recent Progress Patient-Stated? Author Follow your diet plan as advised by your test eng Courtney Owens RD Note: Images from the original note were not included. Nutrtion Goals: 04/25/23 TF Nutrition Goals: 03/28/23 TF Review and continue to work on the Eating Behaviors for success post gastric bypass Nutrition Goals updated today: 10/22/22 TF 1. Try Bolthouse dressing to reduce calories and increase in place Ranch 2. Work towards reducing total calroeus gradually to aim for 3813-8449 kcals (aim to reduce each meal by [...] on filedocumented in this encounter Care Teams Legal Services Manager Relationship Specialty Start Date End Date Keena Rosales APRN [address] [place] [address] PCP - General Family Medicine 11/04/21 documented as of this encounter
--- OUTSIDE RECORDS SUMMARY | 2024-07-13 14:54 | XMS_ITS | Encounter Summary ---
Author Organization [facility] Address [address] [place] [address] Care Team Providers Care Research Quality Assurance Specialist Name Role Phone Pipo Frazier PA-C Primary Care Provider +1 -[phone] Encounter Details Date Type Department Care Team (Latest Contact Info) Description 02/01/2020 Travel Social History Tobacco Use Types Packs/Day Years Used Date Smoking Tobacco: Never Smokeless Tobacco: Never Alcohol Use Standard Drinks/Week Comments Yes 0 (1 standard drink = 0.6 oz pur e alcohol) occasionally Sex and Gender Information Value Date Recorded Sex Assigned at Not on file Legal Sex Male 12:14 EST Gender Identity Male 10/05/2019 14:05 EDT Sexual Orientation Not on file COVID-19 Exposure Response Date Recorded In the last month, have you been in contact with someone who was confirmed or suspected to have Coronavirus / COVID-19? No / Unsure 02/01/2020 9:11 EDT documented as of this encounter Plan of Treatment Upcoming Encounters Date Type Department Care Team (Late st Contact Info) Description 10/02/2024 14:45 EDT Office Visit [facility] Urology - [facility] [address] [place], [place] [address] Pipo Jane MD [address] [facility], [address] [place] [phone] documented as of this encounter Visit Diagnoses Not on filedocumented in this encounter Care Teams Research Quality Assurance Specialist Relationship Specialty Start Date End Date Pipo Frazier PA-C PCP - General 10/05/19 10/21/21 documented as of this encounter
--- OUTSIDE RECORDS SUMMARY | 2024-07-13 14:54 | XMS_ITS | Encounter Summary ---
Author Organization [facility] Address [address] [place] [address] Care Team Providers Care Recruitment Director Name Role Phone Pipo Frazier PA-C Primary Care Provider [phone] [phone] Encounter Details Date Type Department Care Team (Late st Contact Info) Description 01/15/2020 Orders Only [facility] Bariatric Surgery - [address] [id number] Bola Chu MD [address] [place] [phone] Encounter for preprocedure screening laboratory testing for COVID-19 (Primary Dx) Social History Tobacco Use Types [...] Info) Description 10/02/2024 14:45 EDT Office Visit [facility] Urology - [address] [id number] Pipo Jane MD [address] [facility], [address] [place] [address] documented as of this encounter Visit Diagnoses Diagnosis Encounter for preprocedure screening laboratory testing for COVID-19- Primary documented in this encounter Care Teams Recruitment Director Relationship Specialty Start Date End Date Pipo Frazier PA-C PCP - General 10/05/19 10/21/21 documented as of this encounter
--- OUTSIDE RECORDS SUMMARY | 2024-07-13 14:54 | XMS_ITS | Encounter Summary ---
Author Organization [facility] Address [facility] [place] [address] Care Team Providers Care Electric Solderer Name Role Phone Keena Rosales APRN Primary Care Provider [phone] -[phone] Encounter Details Date Type Department Care Team (Latest Contact Info) Description 05/02/2024 Travel Social History Tobacco Use Types Packs/Day [...] place to sleep or slept in a senior care (including now)? No 10/14/2022 IPV Inpatient Questions [...] AM EST Office [place] [address] Lamar Alonzo MD [facility] [address] [facility] [place] [address] documented as of this encounter Goals Goal Patient Goal Type Associated Problems Recent Progress Patient-Stated? Author Follow your diet plan as advised by your drop wire stringer Courtney Owens RD Note: Images from the original note were not included. Nutrtion Goals: 04/25/23 TF Nutrition Goals: 03/28/23 TF Review and continue to work on the Eating Behaviors for success post gastric bypass Nutrition Goals updated today: 10/22/22 TF 1. Try Bolthouse dressing to reduce calories and increase in place [place] 2. Work towards reducing total calroeus gradually to aim for 8287-7995 kcals (aim to reduce each meal by [...] on filedocumented in this encounter Care Teams Electric Solderer Relationship Specialty Start Date End Date Keena Rosales APRN [address] [place] [address] PCP - General Family Medicine 11/04/21 documented as of this encounter
--- OUTSIDE RECORDS SUMMARY | 2024-07-13 14:54 | XMS_ITS | Encounter Summary ---
Author Organization [facility] Address [address] [place] [address] Care Team Providers Care General Office Worker Name Role Phone Pipo Frazier PA-C Primary Care Provider [phone] Reason for Referral * Radiology Services (Routine) - Closed Specialty Diagnoses / Procedures Referred By Contac t Referred To Contact Diagnoses Morbid obesity with BMI of 60.0-69.9, adult (HCC-CMS) Procedures FL UGI AIR W TIRE MAINTENANCE TECHNICIAN Bola Chu MD Phone: tel: fax: Referral ID Status Reason Start Date Expiration Date Visits Re quested Visits Authorized [id number] Closed 12/17/2019 1 1 Reason for Visit * Reason Comments Obesity high risk eval Encounter Details Date Type Department Care Team (Late st Contact Info) Description 12/17/2019 10:00 EDT Office Visit [facility] Bariatric Surgery [address] [id number] Bola Chu MD [address] [place] [phone] Morbid obesity with BMI of 60.0-69.9, adult (HCC-CMS) (Primary Dx) Social History Tobacco Use [...] 10:02 EDT documented as of this encounter Last Filed Vital Signs Vital Sign Reading Time Taken Comments Blood Pressure 139/94 12/17/2019899 EDT Pulse 84 12/17/2019899 EDT Temperature - - Respiratory Rate - - Oxygen Saturation - - Inhaled Oxygen Concentration - - Weight 220.5 kg (486 lb 3.2 oz) 12/17/2019899 EDT Height 181.6 cm (5' 11.5) 12/17/2019899 EDT Body Mass Index 66.87 12/17/2019899 EDT documented in this encounter Patient Instructions * Patient Instructions* Dali Mora - 12/17/2019 10:00 EDT Dear René Wayne: You are scheduled for an upper endoscopy, also called a(n) gastroscopy or EGD with : Dr. Giang On Saturday February 01, 2020 at 10:10 am . Please arrive by 9:10 am . (ONE HOUR BEFORE your scheduled procedure time) To ensure a successful exam, please read the enclosed information carefully. NO FOOD OR DRINK at all after midnight. You MUST have a ride to and from the procedure. ??? PLEASE ARRANGE FOR A RIDE HOME AFTER YOUR PROCEDURE. (Taxi transportation is not acceptable). ??? REMEMBER TO BRING YOUR MEDICATION LIST WITH YOU. The procedure will be performed at the [facility] ([facility]) located at [facility]. ??? Parking is available in the new parking garage. Please enter the garage using the [address] entrance. ??? From the garage, take the elevators to the 3rd floor to registration for check-in. They will direct you to the [facility]. We look forward to seeing you soon. If you have any questions, concerns or need to reschedule your procedure, please call us at [phone]. What is an Upper GI Endoscopy? Also known as: Esophagogastroduodenoscopy; EGD; Upper Endoscopy; Gastroscopy An Upper GI endoscopy is an examination of the upper gastrointestinal (GI) tract using a specialized video camera called an endoscope. This instrument is inserted down the throat and shows images of the lining of the esophagus, stomach and upper duodenum. How to prepare for the test: EGD Preparation Instructions Medication Precautions: ??? If you are currently taking: ? MAO inhibitors ? Blood thinning medication such as clopidogrel (Plavix), warfarin (Coumadin) or heparin ? Insulin ??? Please contact your doctor who manages these medications with you before stopping them. See list at end of these instructions. ONE WEEK PRIOR TO YOUR PROCEDURE ??? STOP ALL MAO inhibitors, aspirin products, blood thinning agents such as clopidogrel (Plavix), warfarin (Coumadin), and any anti-inflammatory medications such as ibuprofen (Advil, Motrin) and naproxen (Aleve, Naprosyn). [Please refer to corresponding Medication Avoidance List for complete list]. ??? Discuss any allergies, current medications and family history of bleeding with your doctor. ??? Arrange for someone to drive you home on your procedure day. DAY BEFORE YOUR PROCEDURE ??? STOP taking any antacids, carafate, sulfcarafate, or any other stomach coating products 24 hours before your procedure. ??? DO NOT eat or drink anything after midnight the night before your exam if your exam is scheduled for the morning. DAY OF YOUR PROCEDURE ??? DON???T FORGET, YOU???LL NEED TO BRING SOMEONE WHO CAN TAKE YOU HOME. A PIVOT MAKER IS NOT ACCEPTABLE. THE PROCEDURE WILL NOT BE PERFORMED WITHOUT A SAFE WAY HOME. ??? Do take your morning medications with a small sip of water. o If you have diabetes, your medications may need to be adjusted. Please discuss this with your doctor who manages your diabetes. ??? Do not have anything to eat or drink at least 6 hours prior to your exam. o If you have an exam scheduled after 1:00 pm, you may have a clear liquid breakfast. ??? Your stomach must be completely empty for this procedure ??? Please check-in ONE HOUR BEFORE your scheduled procedure time at the registration desk located on the 3rd floor of the [facility]. o They will direct you to the Endoscopy suite located on the 4th floor of the [facility] in the [facility] ([facility]). ??? You will be receiving intravenous medication during the procedure for your comfort. Be sure to mention any allergies to medications to our staff. ??? If tissue samples (biopsies or polyps) are taken, it will take up to 2-3 weeks for results to be mailed to you. ??? Estimated time of stay after registration: approximately 2 hours. If you have any questions, concerns, or need to reschedule your procedure, please call [phone]. Why the test is performed This test can help diagnose and potentially treat: ??? The cause of upper GI (gastrointestinal) bleeding ??? The cause of swallowing difficulties, removal of foreign objects ??? The presence of tumors or other abnormalities of the upper GI tract ??? Inflammation, narrowing, or tumors of the esophagus The procedure Please arrive one hour prior to your scheduled procedure time. When you arrive at the [facility] ([facility]), please: ??? Bring your medication list and tell the nurse about any drug allergies, medications you take regularly and any health problems (such as heart, breathing, sugar, or bleeding problems.) ??? Change into a hospital gown. ??? Remove dentures. An intravenous (IV) line will be inserted into a vein in your arm. The IV will allow you to receivemedications and fluids for the procedure. After your arrive into the procedure room, you will: ??? Be asked to swallow a special type of paste that will numb your throat. This medication will help suppress the need to cough or gag when the endoscope is inserted. ??? Receive medications through the IV, a combination of a sedative (relaxing) and narcotic (pain reliever) ??? Have a mouth guard to protect your teeth and the endoscope. ??? Be instructed to lie on your left side. How the test will feel The local anesthetic makes swallowing difficult. This wears off shortly after the procedure. The endoscope may stimulate some gagging in the back of the throat. There may be a sensation of gas and the movement of the scope may be felt in the abdomen. Biopsies cannot be felt. Because of the intravenous sedation, you may not feel any discomfort and may have no memory of the test. The endoscope will be advanced through the esophagus to the stomach and duodenum (the first part ofthe small intestine). The endoscope will not affect your breathing. Air will be introduced through the endoscope to enhance viewing. This may make you burp. The exam typically lasts about 5 minutes, depending on examination findings. After the test is completed, food and liquids will be restricted until your gag reflex returns. Theentire process, from the time you arrive to when you leave, is estimated at two hours. ??? You will not be able to drive yourself home secondary to the medications given for the exam. Bring someone to drive you home. A boom truck driver is not acceptable. Risks There is a small chance of perforation (hole) of the stomach, duodenum, or esophagus or bleeding atthe biopsy site. A patient could have an adverse reaction to the medication. The overall risk is less than 1 out of 2,500 people. After the procedure If any of these symptoms occur after the test, please contact our office at [phone]. ??? Difficulty swallowing ??? Fever or Pain ??? Black stools or Blood in vomit If biopsies were taken, results will be mailed to you within a 2 to 3 week period. Medication avoidance list This may not be a complete product listing. Other products may also contain these drugs so you should review the contents of any medications that you take to see if they contain any of the drugs listed above. MAO - INHIBITORS: (MONOAMINE OXIDASE INHIBITORS) ASPIRIN OR ASPIRIN LIKE COMPOUNDS (Marplan)-Isocarboxazid Prescription (Nardil)-Phenelzine Darvon Compound-65 Clorgyline Disalcid Capsules/Tablets Moclobemide Easprin Tablets Senegiline Emprin with Codeine Tablets Tranylcypromine Equagesic Tablets ASPIRIN OR ASPIRIN-LIKE COMPOUNDS Fiorinal Capsules/Tablets, Fiorinal with Codeine Caplets/Tablets Nonprescription: Lortab ASA Tablets Lizzie-Tillatoba Antacid Pain Reliever Magsal Tablets Lizzie-Tillatoba Plus cold Preparations Gates-Gesic Tablets Anacin Maximum Strength Tablets, Norgesic & Norgesic Forte Tablets Arthritis Pain Formula Tablet Percodan & Percodan-Cori Tablets Arthritis Strength Robaxical Tablets Bufferin Tablets Salflex Tablets Ascription A/D Caplets Soma Compound Tablets Aspergum Soma Compound with Codeine Tablets Umberto Aspirin Caplets/Tablets Synalgos-DC Capsules Umberto Plus Tablets Ursinus Inlay-Tabs Maximum Umberto Caplets,/Tablets Talwin 8-hour Umberto Extended -Release Tablets IBUPROFEN BC Powder, BC Cold Powder Advil Caplets/Tablets Buffaprin Caplets/Tablets Advil Cold/Sinus Caplets Buffaprin Caplets/Tablets Umberto Select Ibuprofen Pain Relief Bufferin Arthritis Strength Caplets Formula Cama Arthritis Pain Reliever Tablets Haltran Tablets Celestine's Pills Caplets Ibuprohm Ecotrin Caplets/Tablets Ibuprofen Caplets/Tablets Empirin Midol IB Tablets Excedrin Extra-Strength Caplets/Tablets Motrin IB Caplets/Tablets Midol Caplets Nuprin Ibuprofen Caplets/Tablets Mobigesic Analgesic Tablets Sine-Aid IB Cyrus Tablets Motrin IB Caplets/Tablets P-A-C Analgesic Tablets NAPROXEN SODIUM Pepto-Bismol Liquid/Tablets Naprosyn Suspension Tablets Sine-Off Tablets Aspirin Formula Anaprox/Anaprox DS Tablets ASPIRIN OR ASPIRIN-LIKE COMPOUNDS OTHER NON-STEROIDAL ANTI-INFLAMMATORIES Nonprescription Celecoxib (Celebrex) [facility] Chewable Aspirin Diclofenac (Voltaren) Therapy Umberto Caplets Etodolac (Lodine) Trigesic Indomethacin (Indocin) Ursinus Inlay-Tabs Ketoprofen (Orudis) Vanquish Analgesic Caplets Ketorolac (Toradol) Meloxicam (Mobic) Nabumetome (Relafen) Piroxicam (Feldene) Rofecoxib (Vioxx) Sulindac Valdecoxib (Bextra) Getting to the [facility] [address] [place] [address] From the [place] Area and [facility] From the [place] area, take [address] to [facility] in [place]. Turn right onto [facility] (which becomes [facility]) and continue for approximately one mile. [facility] is on your right. Once on the campus, stay on [address] and follow signs to the parking garage and main entrance. From [place] and [place] Take [address]. From the [place] Take [address] to [address]. From the [place] Take [facility]. [address]. Take [address]. (Alternate: Cross [place]. Take [address] to [facility] to Exit [address].) From [facility] [address] through three traffic lights. Bear right onto [address] (marked by [facility] sign). Follow signs to parking garage and main entrance. documented in this encounter Progress Notes * Bola Chu MD - 12/17/2019 1000 EDT 12/17/2019 Chief Complaint: René Wayne is a 34 y.o. male seen today in consultation at the request of Pipo Gramajo PA-C for consideration of surgical treatment for his morbid obesity. HPI: René Wayne has had weight problems since childhood. His obesity is generalized. This form of obesity is interfering with his quality of live.There are associated comorbid conditions. He has tried multiple weight loss programs with the following results: no long-term success. Their maximum weight loss has been 150 pounds, and their highest weight hasbeen 520. The patient's primary motivation for weight loss is health, mobility and longevity. Associated co-morbidities: Sleep apnea, Osteoarthritis, Gastro-Esophogeal Reflux, Hypertension and Hyperlipidemia . SUDHA on CPAP, on/off GERD, anxiety, depression. Gallbladder: s/p cholecystectomy Prior abdominal surgeries: laparoscopic cholecystectomy No past surgical history on file. Gastric problems/issues: On/OFF GERD There is no problem list on file for this patient. Allergies: Patient has no known allergies. Social History: Social History Tobacco Use ??? Smoking status: Not on file Substance Use Topics ??? Alcohol use: Not on file Family history was reviewed, and nothing pertinent found. Review of Systems: A 11-point review of systems was completed. Pertinent items are noted in Subjective/HPI Constitutional: Negative for fever. HENT: Negative for neck pain. Eyes: Negative for blurred vision. Respiratory: Negative for shortness of breath. Cardiovascular: Negative for chest pain, palpitations and orthopnea. Gastrointestinal: (-) for abdominal pain. Genitourinary: Negative for dysuria. Skin: Negative for rash. Neurological: Negative for dizziness. Endo/Heme/Allergies: Negative. Psychiatric/Behavioral: Normal. Physical Exam: BP (!) 139/94 (BP Cuff Location: Left arm, BP Patient Position: Sitting, BP Cuff Sizes: Adult, large) Pulse 84 Ht 181.6 cm (71.5) Wt (!) 220.5 kg (486 lb 3.2 oz) BMI 66.87 kg/m?? Body mass index is 66.87 kg/m??. Mr. Wayne is a pleasant gentleman who is awake, alert, oriented x3. He did not show any signs of acute distress. He is not in pain. His vitals were stable .Nursing note and vitals reviewed. Constitutional: She appears well-nourished. No distress. Morbidly Obese. HENT: Normal Head: Atraumatic. Right Ear: External ear normal. Left Ear: External ear normal. Mouth/Throat: Oropharynx is clear and moist. Eyes: Conjunctivae are normal. No scleral icterus. Neck: Neck supple. Cardiovascular: Normal rate, regular rhythm and normal heart sounds. Pulmonary/Chest: Effort normal and breath sounds normal. No respiratory distress. Abdominal: obvious abdominal scar.Abdomen obese, soft, lax, no distention or tenderness.Bowel sounds are normal . Musculoskeletal: She exhibits no edema. Neurological: She is alert. Skin: Skin is warm. Psychiatric: She has a normal mood and affect. Her behavior is normal. Judgment and thought contentnormal. Assessment: I spent a total of 45 minutes in face to face time with this patient and 25 minutes of that time was spent in counseling, discussing this patient's medical profile as it relates to the benefits and risks of gastric bypass/lap band surgery and reviewed an on-line KHARI tutorial the patient watched covering the way weight loss surgery is done, how it causes weight loss, potential risks and complications, impact on eating and critical nature of exercise and follow up to a good outcome. The patient acknowledges a pre-op BMI goal of 10%. I explained in detail the procedures that we are performing. All of these procedures can be performed laparoscopically or open. The patient was made aware of the followin. As we perform these procedures laparoscopically, there is a chance to convert to open if any technical challenges or complications do occur. 2. Bariatric surgery is not cosmetic surgery and should not be thought of in any way as cosmetic surgery. It does not involve the removal of adipose tissue by surgery or removal by suctioning. 3. Long-life commitment is a very important part of his/her decision along with lifestyle changes including diet, exercise, and behavior changes. 4. Problems after surgery may require more operations to correct them. 5. Patient will need to be on a liquid/protein diet for at least 2 weeks prior to surgery. The risks, benefits and alternatives of all of the procedures were explained in detail including, but not limited to , anesthesia and medication adverse effect/DVT, pulmonary embolism, trocar site/incisional hernia, wound infection, bleeding, failure to lose weight or gain weight and change inbody image. With regard to the band, the risks and benefits were explained. The risks associated with the band include, but are not limited to: gastric/esophageal perforation, access port leakage, infection or twisting that may require an additional operation, failure to lose weight or gaining weight, nausea, v omiting, outlet obstruction, pouch and esophageal dilatation, gastroesophageal reflux disease symptoms, band migration/slippage or erosion. For the gastric bypass the risks include but not limited to the following early complications: anastomotic leak/peritonitis, acute distal gastric dilatation, Juan Jose limb obstruction, severe & minorwound infection/seroma, and nausea/vomiting. Late complications of gastric bypass can include but are not limited to: stomal stenosis, marginal ulcer, SBO/internal,incisional hernia, staple line disruption (GGF) and metabolic complications with calcium, thiamine, vitamin B12, folate, iron and anemia. Regarding the sleeve the risks include but are not limited to: internal visceral/ organ injury, bleeding, infection, leak, stenosis and possibility of regaining weight. The patient understands the surgical procedures and the different surgical options that are available. He understands the lifestyle changes that would be required after surgery and has agreed to participate in a pre-operative and postoperative weight management program. He understands the risks involved as well, including a leak, a blood clot developing in a leg and migrating to the lungs as a pulmonary embolus, conversion to open surgery, and . René has attended the preoperative bariatric education class and has had additional opportunity to address specific concerns. I think he is a good candidate for this surgery, and his expectations from the surgery are reasonable. Plan: He was asked to Schedule a follow-up appt with our director of litigation and our physician's communication assistant, LO Ware. We will obtain the results of the following: UGI, EGD and lab work. René Wayne is an appropriate candidate for Gastric Sleeve surgery stage vs final pending test results.. For the next visit he was advised to come with his family. 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 He is interested in LSG. Seen and discussed with Shorts Sifter at this visit. I would like to thank Pipo Frazier PA-C for providing me the opportunity to participate in the management of this patient. Bola Chu MD 12/17/2019 10:08 * Carla Chen - 12/17/2019 1000 EDT Bariatric Clinic - Medical Nutritional Evaluation - Initial 12/17/2019 Evaluation for Gastric Sleeve. Subjective: Patient is 34 y.o. male here for nutritional assessment for morbid obesity in preparation for bariatric surgery. Nutrition/diet history: Family/other support system: significant other and brother Menu planning/shopping: patient Who does the cooking: patient Eating out frequency: <1 x/week Prior weight loss attempts: Atkins diet and vegan, low carb Patient's diet has changed since 3 day food record was kept. No Known Allergies Food Intolerances: dislikes mushrooms and olives and seafood Current Exercise: planned exercise occasionally (walk around the block and yoga) Reasons for limited exercise: gym closed for pandemic Objective: BP (!) 139/94 (BP Cuff Location: Left arm, BP Patient Position: Sitting, BP Cuff Sizes: Adult, large) Pulse 84 Ht 181.6 cm (71.5) Wt (!) 220.5 kg (486 lb 3.2 oz) BMI 66.87 kg/m?? Body mass index is 66.87 kg/m??. Excess BW: 325.7 10% Wt Loss or Goal Wt: 48 lbs (438 lbs) Estimated Body Wt after Surgery: 290 lbs Patient was counseled on keeping a food diary and pre-op weight loss expectations and given Drs. Jackeline Krishnan Patient has the following barriers to learning: none Assessment: Patient seems to be an appropriate candidate for bariatric surgery based on multiple failed weight loss attempts and BMI and comorbidities. Patient has already made significant positive changes in diet. Gone on a vegan diet Patient needs to make the following changes prior to next visit eat smaller meals, keep food records, and add 3 servings of vegetables each day. Patient needs to make the following changes in exercise prior to next visit: increase time to 150 minutes. Patient appears to comprehend requirements. Plan: Patient will be evaluated for changes in diet as above and maintain a food diary including foods consumed and calories calculated. Patient is expected to bring at least 1 week of food diaries to second visit for review. Patient will lose 1-2 pounds a week, or at least 48 lbs by day of surgery CARLA CHEN 12/17/2019 10:18 documented in this encounter Plan of Treatment Upcoming Encounters Date Type Department Care Team (Late st Contact Info) Description 10/02/2024 14:45 EDT Office Visit [facility] Urology - [address] [address] Pipo Jane MD [address] [place] [address], [address] [place] [id number] documented as of this encounter Results * FL UGI AIR W TIRE MAINTENANCE TECHNICIAN (12/26/2019 11:36 EDT) Anatomical Region Laterality Modality Body Radio Fluoroscop y 12/26/2019 13:0 1 EDT Impressions 12/26/2019 13:01 EDT Normal study. I have personally reviewed the images and the above interpretation and agree with the findings. Narrative 12/26/2019 13:01 EDT FL UGI AIR W TIRE MAINTENANCE TECHNICIAN 12/26/2019 10:30 AM Symptoms: GERD. Obesity Technique: Single and double-contrast views of the thoracic esophagus, stomach, duodenal bulb and sweep were obtained. Comparison: None. Findings: Solidworks Mechanical Designer KUB demonstrates surgical clips in the right upper quadrant. Study shows a normally-distensible thoracic esophagus with normal-appearing mucosa. The stomach is normally distensible with normal-appearing mucosa. There is no evidence of gastroesophageal reflux on this study. The duodenal bulb and sweep are within normal limits. Procedure Note Manoj Peralta MD - 12/26/2019 FL UGI AIR W TIRE MAINTENANCE TECHNICIAN 12/26/2019 10:30 AM Symptoms: GERD. Obesity Technique: Single and double-contrast views of the thoracic esophagus, stomach,duodenal bulb and sweep were obtained. Comparison: None. Findings: Solidworks Mechanical Designer KUB demonstrates surgical clips in the right upper quadrant. Study shows a normally-distensible thoracic esophagus withnormal-appearing mucosa. The stomach is normally distensible with normal-appearing mucosa. There is no evidence of gastroesophageal reflux on this study. The duodenal bulb and sweep are within normal limits. IMPRESSION Normal study. I have personally reviewed the images and the above interpretation andagree with the findings. Bola Chu MD IMG FLUOROSCOPY ORDERABLES Fin al Result documented in this encounter Visit Diagnoses Diagnosis Morbid obesity with BMI of 60.0-69.9, adult ([facility])- Primary Morbid obesity Morbid obesity with BMI of 60.0-69.9, adult ([facility]) Morbid obesity documented in this encounter Historical Medications * This list may reflect changes made after this encounter. busPIRone (BUSPAR) 5 mg tablet Take 5 mg by mouth daily. hydrOXYzine (ATARAX) 25 mg tablet Take 25 mg by mouth daily. venlafaxine HCl (VENLAFAXINE ORAL) Take 325 mg by mouth daily. LORazepam (ATIVAN) 0.5 mg tablet Take 1 mg by mouth as needed for Anxiety. added in this encounter Care Teams General Office Worker Relationship Specialty Start Date End Date Pipo Frazier PA-C PCP - General 10/05/19 10/21/21 documented as of this encounter
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
--- OUTSIDE RECORDS SUMMARY | 2024-07-13 14:54 | XMS_ITS | Encounter Summary ---
Author Organization [facility] Address [address] [place] [address] Care Team Providers Care Explosive Ordnance Technician Name Role Phone Pipo Frazier PA-C Primary Care Provider [phone] Keena Rosales APRN Primary Care Provider [phone] Encounter Details Date Type Department Care Team (Late st Contact Info) Description 01/29/2020 Lab Requisition [facility] [address] [address] Outr Resulting Lab, Provider Social History Tobacco [...] EDT Office Visit [facility] Urology - [address] [id number] Pipo Jane MD [address] [facility], [address] [place] [id number] documented as of this encounter Procedures Procedure Name Priority Date/Time Associated Diagnosis Comments DO NOT ORDER STANDALONE - BROAD COVID TEST Today 01/29/2020 10:40 EDT COVID-19 TESTING Routine 01/29/2020 10:4 0 EDT documented in this encounter Results * DO NOT ORDER STANDALONE - BROAD COVID TEST (01/29/2020 10:40 EDT) Pathologist [facility] COVID-19 rt-PCR Result NEGATIVE Negative 01/31/2020 6:36 EDT [facility] Comment: 2019-novel Coronavirus (2019-nCoV) not detected by the qRT-PCR assay. Consider testing for other respiratory viruses or re-collecting for 2019-nCoV testing. Note: Optimum timing for peak viral levels during infections caused by 2019-nCoV have not been determined. Collection of multiple specimens from the same patient may be necessary to detect the virus. Limitations Positive results are indicative of active infection with SARS-CoV-2 but do not rule out bacterial infection or co-infection with other viruses. The agent detected may not be the definite cause of disease. In addition, detection of viral RNA may not indicate the presence of infectious virus or that SARS-CoV-2 is the causative agent for clinical symptoms. Negative results do not preclude SARS-CoV-2 infection and should not be used as the sole basis for patient management decisions. Negative results must be combined with clinical observations, patient history, and epidemiological information. False negative results may also occur if amplification inhibitors are present in the specimen or if inadequate numbers of organisms are present in the specimen. Optimum specimen types and timing for peak viral levels during infections caused by SARS-CoV-2 have not been fully determined. Collection of multiple specimens (types and time points) from the same patient may be necessary to detect the virus. The test was validated for use with upper respiratory specimens obtained via nasopharyngeal or oropharyngeal swabs in VTM, UTM, M4, M5, M6, saline, and MTM media. The performance of this test has not been established for other specimens. Specimens collected using other FDA recommended Specimen Collection Materials listed in the FDA COVID-19 Diagnostic [employer] communication (October 04, 2019) are processed with the caveat that they were not all validated for use with this test and the result must be interpreted in this context. Furthermore, a false negative results may occur if a specimen is improperly collected, transported or handled. If the virus mutates in the RT-PCR target region, SARS-CoV-2 may not be detected or may be detected less predictably. Inhibitors or other types of interference may produce a false negative result. An interference study evaluating the effect of common cold medications was not performed. This test is not FDA-cleared but its performance characteristics were established by our CLIA-certified, CAP-accredited, high complexity laboratory in accordance with CLIA regulations, [employer] (CAP) guidelines (Sep 27, 2019), and FDA guidance (Sep 08, 2019). This test is only for use under the Food and Drug Administration's Emergency Use Authorization. Swab ENTIRE NASOPHARYNX / Unknown 01/29/2020 10:40 EDT 01/29/2020 22:39 EDT us Provider Outr Resulting Lab MICROBIOLOGY - GENER AL ORDERABLES Final Result [facility] [place], [place] * COVID-19 TESTING (01/29/2020 10:40 EDT) COVID-19 rt-PCR Result NEGATIVE Negative 01/31/2020 7:55 EDT [facility] Comment: 2019-novel Coronavirus (2019-nCoV) not detected by the qRT-PCR assay. Consider testing for other respiratory viruses or re-collecting for 2019-nCoV testing. Note: Optimum timing for peak viral levels during infections caused by 2019-nCoV have not been determined. Collection of multiple specimens from the same patient may be necessary to detect the virus. Limitations Positive results are indicative of active infection with SARS-CoV-2 but do not rule out bacterial infection or co-infection with other viruses. The agent detected may not be the definite cause of disease. In addition, detection of viral RNA may not indicate the presence of infectious virus or that SARS-CoV-2 is the causative agent for clinical symptoms. Negative results do not preclude SARS-CoV-2 infection and should not be used as the sole basis for patient management decisions. Negative results must be combined with clinical observations, patient history, and epidemiological information. False negative results may also occur if amplification inhibitors are present in the specimen or if inadequate numbers of organisms are present in the specimen. Optimum specimen types and timing for peak viral levels during infections caused by SARS-CoV-2 have not been fully determined. Collection of multiple specimens (types and time points) from the same patient may be necessary to detect the virus. The test was validated for use with upper respiratory specimens obtained via nasopharyngeal or oropharyngeal swabs in VTM, UTM, M4, M5, M6, saline, and MTM media. The performance of this test has not been established for other specimens. Specimens collected using other FDA recommended Specimen Collection Materials listed in the FDA COVID-19 [employer] communication (October 04, 2019) are processed with the caveat that they were not all validated for use with this test and the result must be interpreted in this context. Furthermore, a false negative results may occur if a specimen is improperly collected, transported or handled. If the virus mutates in the RT-PCR target region, SARS-CoV-2 may not be detected or may be detected less predictably. Inhibitors or other types of interference may produce a false negative result. An interference study evaluating the effect of common cold medications was not performed. This test is not FDA-cleared but its performance characteristics were established by our CLIA-certified, CAP-accredited, high complexity laboratory in accordance with CLIA regulations, [employer] (CAP) guidelines (Sep 27, 2019), and FDA guidance (Sep 08, 2019). This test is only for use under the Food and Drug Administration's Emergency Use Authorization. Performing Lab [facility] 01/31/2020 7:55 EDT [facility] Swab 01/29/2020 10:4 0 EDT 01/29/2020 22:39 EDT us Provider Outr Resulting Lab MICROBIOLOGY - GENER AL ORDERABLES Final Result [facility] [address] [place] [address] [facility] [place] documented in this encounter Visit Diagnoses Not on filedocumented in this encounter Additional Health Concerns Infection Onset Date Last Indicated Resolved Time COVID-19 03/25/2021 03/25/2021 04/14/2021 22:1 5 EDT documented as of this encounter Care Teams Explosive Ordnance Technician Relationship Specialty Start Date End Date Pipo Frazier PA-C PCP - General 10/05/19 10/21/21 Keena Rosales APRN [address] [address] PCP - General 10/22/21 documented as of this encounter
--- OUTSIDE RECORDS SUMMARY | 2024-07-13 14:54 | XMS_ITS | Encounter Summary ---
Author Organization Formerly [facility] [place] [address] Care Team Providers Care Creative Engagement Director Name Role Phone Keena Rosales APRN Primary Care Provider [phone] Reason for Visit * Reason Comments Follow-up Encounter Details Date Type Department Care Team (Late st Contact Info) Description 08/19/2023 12:30 PM EST Office [place] [address] Katherin Obando CORPORATE TRAVEL EXPERT [facility] [place] [address] Nelly Sl[address], RD [facility] [place] [address] Research study patient; S/P gastric bypass; Disorder [...] place to sleep or slept in a intermediate (including now)? No 10/14/2022 DH IPV Inpatient [...] Sign Reading Time Taken Comments Blood Pressure 148/85 08/19/2023 12:23 PM EST Pulse 71 08/19/2023 12:23 PM EST Temperature 36.2 ??C (97.1 ??F) 08/19/2023 1 2:23 PM EST Respiratory Rate 18 08/19/2023 12:2 3 PM EST Oxygen Saturation 98% 08/19/2023 12: 23 PM EST Inhaled Oxygen Concentration - - Weight 218.3 kg (481 lb 3.2 oz) 024 12:23 PM EST Height 180.3 cm (5' 10.98) 08/19/2023 12:23 PM EST Body Mass Index 67.14 08/19/2023 12:23 PM EST documented in this encounter Patient Instructions * Patient Instructions* Katherin Obando, CORPORATE TRAVEL EXPERT - 08/19/2023 12:30 PM EST Bariatric Surgery Program First Post-operative Follow up visit Contact information: [facility] whanau support worker: Kasia: [phone] and Carla [phone] Dietitians: [phone] Surgeons/ nurse practitioners: [phone] Nurse line: [phone] Dear René, Thank you for following up with the Bariatric Surgery Program at [facility]. Please review your medical note from today's visit for specific information we discussed. Next follow up visit: at 4 months post-op. Testing: Labwork will be done at your 4 month post-op appointment. The lab orders will be in the system before your visit. The main lab is at [address] and does not require an appointment. The hours are Tuesday through Tuesday, 6:45 am to 6:00 pm. Here's the link to [facility] Lab hours and locations, in case one of the other locations is more convenient for you: [email or web address] If you have labwork done by your primary customer care associate before that date, please have a copy sent to the Bariatric Surgery Program. Post surgery Medications: 1. Continue medication to prevent ulcer (likely a PPI like omeprazole) until you are at least 3 months post surgery, or as indicated by your primary care doctor. 2. If you have a gallbladder, continue to take ursodiol for a total of 6 months after surgery to prevent gallstones from forming, and to shrink any gallstones that may be present. Vitamins/Nutrition/Activity Recommendations: Please see your visit note for personalized recommendations General Supplement recommendations: Multivitamins with minerals twice daily- needs to be an under 50 multivitamin that contains iron. Vitamin B12 500 mcg by mouth once daily Calcium citrate 500-600 mg with Vitamin D 400 units twice daily (600 mg in AM and 600 mg in PM- 2 pills twice a day) (or 1 chewable twice a day) Iron supplement: as specified in today's visit Vitamin D: as specified in today's visit General Nutrition recommendations: 1,000-1,200 calories per day (300 calories per meal, 100 calories per snack, 1-2 snacks per day) 60 grams of protein per day (20 grams per meal) 48-64 oz of non-caloric and hydrating fluids per day (6-8, 8 oz cups) Do not drink with meals- pushes food through more quickly, can cause upset stomach Activity: Aim for 30 minutes of exercise daily, 5 days a week of both cardio and strength training exercises. Skinfold care: Cleanse area with soap and water. Blow dry area on low setting with repairer hairspring. Apply absorbent powder such as Gold Calixto and Desinex Apply cotton strips (such as strips from old sheets) or larger size cotton underwear folded beneathskin folds to act as a wick. Do not apply flor cloth toweling which can cause further irritation Try combination of over the counter hydrocortisone cream with over the counter antifungal cream such as lotrimin twice a day for 2 weeks. If your symptoms do not improve you may require prescription of anti-fungal cream/powder. Follow up with PCP if symptoms worsen/fail to improve with above strategies. Constipation: Increase fiber, fluids and fitness. Yerba Prima is a fiber supplement that comes in capsule form. Additionally, consider trying 1 capful daily of miralax daily (preferably at night) with a goal of at least 1 BM per day. You can increase the dose as needed every 2-3 days (by adding on 1 capful either morning or night) without safety concerns, noting that individual tolerance becomes limited by loose stools and bloating with doses higher than 2 capfuls twice daily. Please call if you do not have a BM after 3 days. On days with loose stools, we recommend reducing miralax to 1/2 capful daily but continue to take miralax every day Nausea: Common causes for nausea post bariatric surgery are: Eating too fast, eating too much, drinking with meals, or not chewing well enough. Be sure to eat slowly and chew food well. Take at least30 minutes or more to eat a meal. Call if symptoms worsen, fail to improve, or if you have difficulty keeping food or fluid down. Alcohol: is not recommended for at least 6-12 months after surgery. Alcohol is absorbed much fasterand stays in your system much longer post bariatric surgery and as a result there is an increase risk of alcohol misuse/abuse after bariatric surgery. It should be used sparingly, no more than one drink per occasion, no more than 2 drinks a week. Alcohol is toxic to the liver, a source of empty calories, it can cause ulcers, vitamin and mineral deficiencies, as well as impair digestion and absorption of nutrients. Call or follow up with your therapist or primary care provider if you are struggling or think your alcohol intake is a problem. control for women of child bearing age: control is recommended for at least 18-24 months after surgery. f non-prescribed drugs and treet drugs is unsafe Anti-inflammatory medications (NSAIDs) such as Ibuprofen (Advil), Aleve (Naproxen), Excedrin, [place] should be avoided for at least the first 2 months after surgery. After that they should be used sparingly very sparingly as they increase the risk of ulcer and bleeding. A bone mineral density scan (DEXA) is recommended every 2 years after bariatric surgery. Please schedule this study through your primary care provider's office. Hair Loss: is associated with rapid weight loss and is seen approximately 3 to 6 months after surgery and can last 3 to 6 months. It is almost always temporary. Eating a healthy diet with 60 grams ofprotein per day and taking your multivitamin with minerals will help. Sleep Apnea: If you have a history of sleep apnea and have a CPAP/BiPAP, please be sure to follow up with the sleep center to confirm your pressures and determine if continued use of CPAP/BiPAP is recommended. Potential lifetime risks of gastric bypass include risk of ulcer, which is increased with alcohol and antiinflammatory medications and internal hernia (less than 5%), which may be increased with higher than predicted weight loss. Potential lifetime risks of sleeve gastrectomy include developed heartburn or severe reflux. Call us: If you have concerns. If you have unexplained abdominal pain if you see blood in your stool or vomit blood If you have prolonged vomiting Post Surgery Support Group: Our post surgery support group meets at [facility] on the first Tuesday of every month from 1:00 PM-2:00 PM, call to sign up! Nutrition and Activity apps- Baritastic, My Fitness Pal, Lose It, My Plate Internet resources: www.Klarna www.Crunched www.DoubleMapeaSingularu www.[email or web address].[email or web address]/blog [facility] facebook page: [email or web address].[email or web address] [email or web address] Books & Magazines: - Recipes for Life After Weight Loss Surgery by Andie Craft - Shrink Yourself by Dr Bertram Castañeda - Eating Well - www.[employer].Ecrio - Cooking Light- www.cookinglight.Ecrio Anxiety: The Happiness Trap by Mihir Pace The Mindfulness and acceptance workbook for anxiety By Marquez Hernandez. Mindful eating: What are you Hungry For? By Tony Mai The Mindful Diet by Bailey Francis and the [facility] group. Emotional eating: End Emotional Eating by Nelly Rubi Calming the Emotional Storm Massiel Marin documented in this encounter Progress Notes * Nelly Slaughter, RD - 08/19/2023 12:30 PM EST Bariatric Nutrition Follow-up Visit Topics Discussed/Patient Concerns: Tolerating the diet OK. On Stage 3 diet. 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 Girlfriend, Cherelle. Lives with SO. Social support: Cherelle, Dad, boss (Cherelle's brother) Hobbies: reading, stained glass, video games, bike riding, swimming Vision at 2 years post-op: I just want to be active and moving, maybe see my toes! Better quality of life. Fit in rides at amusement perdomo. Walk more. Not worry if he's going to fit in a place. Less about the number. Weight outcome: would like to be 250# Challenges/barriers to success: At initial visit with Dr. Richards, pt noted his anxiety was a barrier. Isuffer from massive anxiety . Now states his QOL outweighs fear/anxiety of having surgery. OBJECTIVE: Medical Hx: Class III obesity, HTN, SUDHA on CPAP, anxiety, FLD, hyper TG, hx vitamin d deficiency Date of Bariatric Surgery: 07/27/23 Type of Bariatric Surgery: Laparoscopic Juan Jose en Y Gastric Bypass with Dr. Garcia Weight History: Date Weight (lbs) HT BMI Comments 520# Highest Weight 08/25/22 484# Initial program weight 05/12/23 491# 71 68.9 1st pre-op visit 07/27/23 512.8# EWL % Surgery 08/19/23 481.2# 3% 67.1 3 weeks post-op 4 months post-op [place] Body Weight (based on BMI of 25): 179# 30-70% Excess Weight Loss: 273-398#; 50% Excess Weight Loss: 335# MEDICATIONS: Vitamin/Mineral Supplements (reported by patient): Supplement Type Brand/Form Dosage/Amount Frequency Comments Multivitamin Centrum for men 1 pill daily increase Calcium 1 pill daily Vitamin B12 ?500 mcg daily Iron ? dose daily ? Take 2 x week Vitamin D3 ? dose daily Food Allergies/Intolerances: none Tracking Intake: Pen and paper ~70 g protein Daily Oral Intake: protein drinks (equate powder vanilla) and 30+ oz nonfat milk Breakfast Eggs, cheese, salsa AM Snack Lunch Light Yogurt (~6 g) or cottage cheese PM Snack Dinner Chicken and green beans HS Snack Protein- grams/day: ~70 g Hydrating fluids - oz/day: At least 64 oz water, SF Kranthi Aid and milk Soda: None ETOH: None Caffeine: None Meals per day: 3 Other: Vomiting/ regurgitation: None Nausea: None. Constipation/diarrhea: occ loose stools. BM daily. Presurgery: Occ loose stools- may be medication induced. BM daily. Exercise: energy is fine. Slowly starting more at home workouts. ASSESSMENT: Patient s/p bariatric surgery with 3% EWL. He is tolerating the diet and is meeting protein and fluid goals. Reviewed supplements; pt was not 100% sure what he is taking but he does have all the recommended supplements. PLAN: Evaluation by Katherin Obando APRN today. Provided support/encouragement and reinforced importance of meeting nutritional goals. Continue Stage 3 diet. Advance to Stage 4 diet starting 5 weeks post-op. Decrease milk in protein drink to 8-10 ounces Keep up the good work tracking and meeting protein and fluid goals. Use protein powder in lower protein items to help boost intake at meals. Consider switching to [place] Citizen yogurt as it has more protein. Reviewed vitamin and mineral supplement recommendations. Send a picture via [facility] of your vitamins. Multivitamins with minerals twice daily- needs to be an under 50 multivitamin that contains iron. Vitamin B12 500 mcg by mouth once daily Calcium citrate 500-600 mg with Vitamin D 400 units twice daily (2 pills twice a day). If you have calcium carbonate, take 1 pill 2 times per day with a meal. Once you finish what you have, switch tocalcium carbonate. Vitamin D 5085-9011 IU daily Iron - 65 mg iron with vitamin C 2 times per week (Tuesday/Tuesday), Vitron C is a popular option. Take miralax 1 cap a day on the day you take your iron supplement to minimize risk of constipation. Space iron 2 hours from calcium supplementation Do not take iron with caffeine, fiber, thyroid medications or dairy products Follow-up in 3 months, sooner if requested. * Katherin Obando APRN - 08/19/2023 12:30 PM EST [place] [address] Reason for visit: Bariatric Surgery Post Op Check Surgery Info: s/p laparoscopic Juan Jose-en-Y gastric bypass on 07/27/[address] Garcia.No pathology. Subjective: René Wayne is s/p the above procedures, post operative course has been going well. Port sites are healing. Tolerating foods/fluids overall, still learning what foods work better and pacing eating/drinking. He is tracking his intake and trying to make sure he is meeting protein/fluid requirements. Current Supplements:(Vit D deficiency, low iron sat preop) Multi-vitamin with minerals/iron only taking once daily (not sure which one) Calcium (? Kind) only taking one daily. Vit B12 ? 500 mcg daily Vit D3 ? IU daily Iron supplement ? Kind/dose daily. Primary care post op follow up visit: He has f/u with PCP scheduled for next week. He spoke with his PCP office as he was having light headedness from low blood pressures, they decreased his propranolol, he is doing better now with lower dose. No ED visits/unplanned medical visits since surgery. Pre-Bariatric Surgery Obesity related medical issues: Problem Baseline issue if checked Comments Diabetes/prediabetes/insulin resistance [] Off Metformin, victoza and topirimate - was taking for weight loss. Metabolic syndrome or PCOS [] HTN [x] Taking propranolol (but on lower dose) GERD [] Prior to surgery rare Tums (less than once a month), never Rx. Taking PPI for ulcer prevention Hyperlipidemia [x] Txing with lifestyle. SUDHA [x] Using BiPAP Musculoskeletal issues [x] Chronic back and knee pain. Liver Disease [x] Hepatomegaly. Other [x] -Hx TIA (temporary unilateral vision loss 2021) ED workout didn't determine cause ([facility]). -Hx alcohol misuse Post Bariatric Surgery Medications: Extended VTE prophylaxis post surgery Completed 10 day course of enoxaparin without incident. Post-discharge narcotic analgesic use No longer required. Ursodiol gallstone prophylaxis Not indicated, s/p cholecystectomy. PPI ulcer prophylaxis Taking as directed. ROS: No Fever, chills, nausea, vomiting. Has not required anti-emetics No Chest pain, SOB or palpitations No bladder concerns or changes. BM are daily (typically one loose stool- which is his baseline) Energy level is improving Appetite : as expected, trying to meet protein/fluid requirements Activity level : running errands, doing chores. Doing home aerobic work outs 3-4 x week, 15-20 minutes Social history/support: Lives with his S.O, who accompanies him for today's visit. 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 Health Habits: Tobacco: None. ETOH: (Patient with hx alcohol misuse/abuse).. NSAID use: None. Patient Active Problem List Diagnosis Code Anxiety F41.9 Acute cholecystitis K81.0 Class 3 severe obesity with serious comorbidity and body mass index (BMI) of 60.0 to 69.9 in adult E66.01, Z68.44 Hypertension I10 Hypertriglyceridemia E78.1 SUDHA on CPAP G47.33 Chest pain R07.9 Hepatic steatosis K76.0 Hx-TIA (transient ischemic attack) Z86.73 Morbid obesity with body mass index of 60.0-69.9 in adult E66.01, Z68.44 Nausea & vomiting R11.2 Panic attacks F41.0 S/P cholecystectomy Z90.49 Morbid obesity E66.01 Medications/allergies reviewed. Dietary history/ exericse/ activity level: See dietitian note from today's visit for complete dietary evaluation. WT (lbs) BMI HT Highest wt Initial Pre-op visit 05/12/23 491 68.7 5'11 Post-op WT (lbs) BMI %EBW lost 08/19/23 481 67 3% Objective: BP 148/85 Pulse 71 Temp 36.2 ??C (97.1 ??F) Resp 18 Ht 180.3 cm (5' 10.98) Wt (!) 218.3 kg (481 lb 3.2 oz) SpO2 98% BMI 67.14 kg/m?? Physical Exam General: Alert, pleasant, NAD, appears well. Abdomen: Soft, non-distended, non-tender. R lateral trochar site is slower to heal with some scab formation, no heat, tenderness or drainage. otherwise trochar sites are healing nicely. Resp: No increased work of breathing. Speaking in full sentences. No cough/wheeze witnessed. Skin: excess skin noted over abdomen. Skin is warm and dry. No rash noted on exam today. Fading ecchymosis noted. Psychiatric: Normal mood and affect. Appropriate eye contact. Assessment: René Wayne is s/p above procedures, with uneventful early post-operative course.Obesity related co-morbidities are improved/stable overall. Plan: Continue PPI therapy until at least 3 months post op to decrease the risk of ulcer formation and avoid NSAIDs. Discussed how to taper down/off. Bowel Function: reviewed bowel regimen and importance of movement and fluids. Recommend BM at leastevery other day. Consider miralax. Call if struggling. Sleep apnea: recommend follow up with sleep center to determine if CPAP settings need to be adjusted. Advised that hair loss due to rapid weight loss is typical 3-6 months post- surgery and should improve with time and adequate protein/ calorie intake. Avoid ETOH until 6-12 months post-operatively, and then should be used in small amounts Discussion re: importance of chewing food completely, taking time to eat, trying to avoid more complex foods at this time, food/fluids etc. See amphibious operations officer note re: recommendations regarding vitamin and mineral supplementation, fluid intake and exercise. RTC in 3 months for next [facility] follow up visit, with labs(ordered). Call/rtc sooner prn with questions/concerns or unexplained abdominal pain, prolonged nausea, vomiting or inability to hydrate Bariatric Program Summary report is availabe for patient's review via e- Katherin Obando APRN [facility] Bariatric Surgery Program RECOMMENDED BARIATRIC SURGERY PROGRAM POSTOPERATIVE FOLLOW-UP: Follow up: done at 4, 12 and 24 months, and yearly thereafter. High risk patients are evaluated on a more frequent basis. *Supplement recommendations: Multivitamin with minerals twice a day, B12 500 mcg once a day, calcium citrate 600 mg/400 units vitamin D twice a day, iron (ferrous fumarate, carbonyl iron taken with vitamin C 250 mg once a day) for menstruating females or those with TYRELL. Labwork: Hemogram, ferritin, iron (transferrin) saturation, iron, folate, B1, B12, D (25 hydroxy only), Intact PTH and comprehensive metabolic profile at 4, 12 and 24 months, and yearly. If labwork is done by the primary customer care associate: please send a copy to the Bariatric Surgery Program, General Surgery Clinic, [facility], or fax [phone] documented in this encounter Plan of Treatment Upcoming Encounters Date Type Department Care Team (Late st Contact Info) Description 08/17/2024 11:00 AM EST Office [place] [address] Lamar Alonzo MD [facility] DR [facility] [place] [address] documented as of this encounter Goals Goal Patient Goal Type Associated Problems Recent Progress Patient-Stated? Author Follow your diet plan as advised by your aquatics coordinator Courtney Owens RD Note: Images from the original note were not included. Nutrtion Goals: 04/25/23 TF Nutrition Goals: 03/28/23 TF Review and continue to work on the Eating Behaviors for success post gastric bypass Nutrition Goals updated today: 10/22/22 TF 1. Try [place] dressing to reduce calories and increase in place [place] 2. Work towards reducing total calroeus gradually to aim for 4600-2147 kcals (aim to reduce each meal by [...] Procedure Name Priority Date/Time Associated Diagnosis Comments BIOREPOSITORY REQUEST Routine 07/20/2023 2:04 PM EST Research study patient documented in this encounter Results * Vitamin B12 (11/18/2023 8:27 AM EDT) Vitamin B12 757 232 - 1,245 pg/mL [facility] Blood 11/18/2023 8:27 AM EDT 11/18/2023 8:36 AM EDT Narrative Resulting Agency Comment Spec In Lab Katherin Obando CORPORATE TRAVEL EXPERT CHEMISTRY ORDERA BLES Performing Organization Address City/State/[facility] Co de Phone Number [facility] [place] [address] * (ABNORMAL) Hemogram (11/18/2023 8:27 AM EDT) White Blood Cell 8.2 4.0 - 9.5 x10(3)/mc L [facility] Red Blood Cell 4.70 4.58 - 5.54 x10(6)/mc L [facility] Hemoglobin 12.7(L) 13.7 - 16.5 g/dL [facility] Hematocrit 39.2(L) 40.5 - 48.5 % [facility] Mean Cell Volume 83.4 82.9 - 93.1 fL [facility] Mean Cell Hemoglobin 27.0(L) 27.5 - 32.1 pg [facility] Mean Cell Hemoglobin Concentration 32.4 32.0 - 35.7 g/dL [facility] Platelet 344 145 - 357 x10(3)/mc L [facility] RDW Standard Deviation 42.9 36.0 - 45.0 fL [facility] RDW coefficient of variation 14.3(H) 11.4 - 13.8 % [facility] Mean Platelet Volume 8.7 7.6 - 12.9 fL [facility] NRBC% auto 0.0 % [facility] NRBC Absolute 0.000 0.000 - 0.000 x10(3)/mc L [facility] Blood 11/18/2023 8:27 AM EDT 11/18/2023 8:36 AM EDT Narrative Resulting Agency Comment Spec In Lab Katherin Obando APRN HEMATOLOGY ORDER CARON [facility] [place] [address] * (ABNORMAL) Comprehensive metabolic panel (non-fasting) (11/18/2023 8:27 AM EDT) Glucose 101 65 - 199 mg/dL [facility] Comment:Diabetes: >=200 mg/d L plus symptoms Blood Urea Nitrogen 13 10 - 20 mg/dL [facility] Creatinine 0.65(L) 0.80 - 1.50 mg/dL [facility] Sodium 141 135 - 145 mmol/L [facility] Potassium 4.2 3.5 - 5.0 mmol/L [facility] Comment: Please note: ??Patients with WBC >100,000 may have falsely elevated Potassium levels. ??For accurate Potassium quantification in these patients send serum separator tube (gold top) for subsequent determinations. ??Contact the Clinical Chemistry Laboratory if there are any questions. Chloride 105 98 - 107 mmol/L [facility] Carbon Dioxide 27 22 - 31 mmol/L [facility] Anion Gap 9 5 - 15 mmol/L [facility] Calcium 9.4 8.5 - 10.5 mg/dL [facility] Protein, Total 7.0 6.1 - 8.0 g/dL [facility] Albumin 4.0 3.2 - 5.2 g/dL [facility] Aspartate Aminotransferase 14 0 - 39 unit/L [facility] Alanine Aminotransferase 24 0 - 55 unit/L [facility] Alkaline Phosphatase 116 40 - 130 unit/L [facility] Bilirubin, Total 0.2 0.2 - 1.3 mg/dL [facility] Est Glomerular Filtration Rate 124 >=60 mL/min/1. 73 m?? [facility] Comment: This patient's estimated GFR was [...] APRN CHEMISTRY ORDERA BLES Performing Organization Address [facility]/ZIP Co de Phone Number [facility] [place] [address] * (ABNORMAL) Iron and TIBC (11/18/2023 8:27 AM EDT) Iron 44(L) 45 - 160 mcg/dL [facility] TIBC 262 250 - 450 mcg/dL [facility] Iron Saturation 17(L) 20 - 50 % [facility] Blood 11/18/2023 8:27 AM EDT 11/18/2023 8:36 AM EDT Narrative Resulting Agency Comment Spec In Lab Katherin Obando APRN CHEMISTRY ORDERA BLES [facility] [place] [address] * Ferritin (11/18/2023 8:27 AM EDT) Ferritin 228 31 - 409 ng/mL [facility] Comment: Please note that as of 06/15/2023, the reference intervals for Ferritin have been updated. Blood 11/18/2023 8:27 AM EDT 11/18/2023 8:36 AM EDT Narrative Resulting Agency Comment Spec In Lab Katherin Obando APRN CHEMISTRY ORDERA BLES Performing Organization Address [facility]/ZIP Co de Phone Number [facility] [place] [address] * Folate, serum (11/18/2023 8:27 AM EDT) Folate 16.6 4.8 - 24.2 ng/mL [facility] Blood 11/18/2023 8:27 AM EDT 11/18/2023 8:36 AM EDT Narrative Resulting Agency Comment Spec In Lab Katherin Obando APRN CHEMISTRY ORDERA BLES Performing Organization Address [facility]/ZIP Co de Phone Number [facility] [place] [address] * PTH (11/18/2023 8:27 AM EDT) Parathyroid Hormone 54 15 - 65 pg/mL [facility] Blood 11/18/2023 8:27 AM EDT 11/18/2023 8:36 AM EDT Narrative Resulting Agency Comment Spec In Lab Katherin Obando APRN CHEMISTRY ORDERA BLES Performing Organization Address [facility]/ZIP Co de Phone Number [facility] [place] [address] * Vitamin D, 25-Hydroxy (11/18/2023 8:27 AM EDT) [facility] Vitamin D Total 25 OH 34 21 - 100 ng/mL [facility] Vit D Interp Sufficient [facility] Blood 11/18/2023 8:27 AM EDT 11/18/2023 8:36 AM EDT Narrative Resulting Agency Comment Spec In Lab Katherin Obando APRN CHEMISTRY ORDERA BLES Performing Organization Address [facility]/ZIP Co de Phone Number [facility] [place] [address] * Vitamin B1, whole blood (11/18/2023 8:27 AM EDT) [facility] Vit B1 Lvl Wb (NOVEMBER) 135 70 - 180 nmol/L [facility] Comment: ADDITIONAL INFORMATION This test was developed and its performance characteristics determined by [facility] in a manner consistent with CLIA requirements. This test has not been cleared or approved by the U.S. Food and Drug Administration. Test Performed by: [facility] - [address] [address] Haulage Engine Operator: Quincy Plummer M.D. Ph.D.; CLIA# [id number] Blood 11/18/2023 8:27 AM EDT 11/18/2023 12:31 PM EDT Narrative Resulting Agency Comment Spec In Lab Katherin Obando APRN LAB SEND OUT ORD ERABLES Performing Organization Address City/[facility]/ZIP Co de Phone Number [facility] [place] [address] * Biorepository Request (07/20/2023 2:04 PM EST) [facility] Biorepository Hold Sample in lab [facility] Stool 07/20/2023 2:04 PM EST 07/28/2023 11:05 AM EST Narrative Resulting Agency Comment Spec In Lab Lamar CAMPA [facility] [place] [address] documented in this encounter Visit Diagnoses Diagnosis Research study patient Reserved for inherently not codable concepts WITHOUT codable children S/P gastric bypass Bariatric surgery status Disorder of iron metabolism Other disorders of iron metabolism Vitamin D deficiency Unspecified vitamin D deficiency Intestinal malabsorption, unspecified type documented in this encounter Care Teams Creative Engagement Director Relationship Specialty Start Date End Date Keena Rosales APRN [address] [place] [address] PCP - General Family Medicine 11/04/21 documented as of this encounter
--- OUTSIDE RECORDS SUMMARY | 2024-07-13 14:54 | XMS_ITS | Encounter Summary ---
Author Organization [facility] [place] [address] Care Team Providers Care Ground Crew Supervisor Name Role Phone Keena Rosales APRN Primary Care Provider [phone] [phone] Encounter Details Date Type Department Care Team (Late st Contact Info) Description 03/06/[address] Scan at [facility] [place] [phone] Radha Parry Social History Tobacco Use Types Packs/Day Years [...] place to sleep or slept in a group home (including now)? No 10/14/2022 IPV Inpatient Questions [...] AM EST Office [place] [address] Lamar Alonzo MD [facility] [address] [facility] [place] [address] documented as of this encounter Goals Goal Patient Goal Type Associated Problems Recent Progress Patient-Stated? Author Follow your diet plan as advised by your garment folder Courtney Owens RD Note: Images from the original note were not included. Nutrtion Goals: 04/25/23 TF Nutrition Goals: 03/28/23 TF Review and continue to work on the Eating Behaviors for success post gastric bypass Nutrition Goals updated today: 10/22/22 TF 1. Try Bolthouse dressing to reduce calories and increase in place Ranch 2. Work towards reducing total calroeus gradually to aim for 8118-1890 kcals (aim to reduce each meal by [...] on filedocumented in this encounter Care Teams Ground Crew Supervisor Relationship Specialty Start Date End Date Keena Rosales APRN [address] [place] [address] PCP - General Family Medicine 11/04/21 documented as of this encounter
--- OUTSIDE RECORDS SUMMARY | 2024-07-13 14:54 | XMS_ITS | Clinical Summary ---
Author Organization [facility] Address [facility] [place] [address] Care Team Providers Care Head Start Assistant Teacher Name Role Phone Keena Rosales APRN Primary Care Provider [phone] [phone] Allergies Active Allergy Reactions Criticality Noted Date Comments Trazodone High 02/11/2022 Other Reaction(s): Agitation Bupropion Anxiety High 02/16/2023 Medications Medication Sig Dispensed Refills Start Date End Date Status LORazepam (Ativan) 0.5 mg Tablet Take 0.5 mg by mouth daily as needed. 09/12/2019 Active acetaminophen (Tylenol) 325 mg Tablet Take 3 tablets by mouth every 6 hours as needed for Pain. 30 tablet 11/14/2019 Active Acetylcysteine (NAC) 600 mg capsule TAKE TWO CAPSULES BY MOUTH EVERY MORNING WITH TWO ADDITIONAL CAPSULES IN THE AFTERNOON/EARLY EVENING NEEDED FOR MOOD Active busPIRone (Buspar) 10 mg tablet Take 10 mg by mouth daily. 05/17/2023 Active melatonin 5 mg tablet Take 5 mg by mouth daily as needed (for sleep). Active multivitamin (THERAGRAN) Tablet Take 1 tablet by mouth daily. Active Victoza 3-Carlo 0.6 mg/0.1 mL (18 mg/3 mL) Pen Injector Has on hand, has NOT started yet 11/25/2023 Active calcium citrate (Calcitrate) 200 mg (950 mg) tablet Take 1 tablet by mouth daily. Active cyanocobalamin, Vitamin B-12, (Vitamin B-12) 1,000 mcg tablet Take 1,000 mcg by mouth daily. Active ferrous sulfate (FeroSul) 324 mg (65 mg iron) DR tablet Take 324 mg by mouth. Every 3 days Active cholecalciferoL (Vitamin D3) 400 unit tablet Take 400 Units by mouth daily. Active insulin needles, disposable, (BD Ultra-Fine Short Pen Needle) 31 gauge x 5/16 NeedleIndications:Cl ass 3 severe obesity with serious comorbidity and body mass index (BMI) of 60.0 to 69.9 in adult, unspecified obesity type Use 1 needle daily 100 each 3 01/26/2024 Active prazosin (Minipress) 1 mg capsule Take 3 mg by mouth nightly. 12/06/2023 Active metFORMIN XR (Glucophage XR) 500 mg ER 24 hr tabletIndications:Cl ass 3 severe obesity with serious comorbidity and body mass index (BMI) of 60.0 to 69.9 in adult, unspecified obesity type,Insulin resistance 1 po qdinner x 2 week, then 2 po qdinner 60 tablet 1 05/04/2024 Active Active Problems Problem Noted Date Diagnosed Date Morbid obesity 07/27/2023 Chest pain 05/10/2023 Hepatic steatosis 05/10/2023 Hx-TIA (transient ischemic attack) 05/10/2023 Morbid obesity with body mass index of 60.0-69.9 in adult 05/10/2023 Nausea & vomiting 05/10/2023 Panic attacks 05/10/2023 S/P cholecystectomy 05/10/2023 Class 3 severe obesity with serious comorbidity and body mass index (BMI) of 60.0 to 69.9 in adult 08/25/2022 Hypertension 08/25/2022 Hypertriglyceridemia 08/25/2022 SUDHA on CPAP 08/25/2022 Acute cholecystitis 11/13/2019 Anxiety 03/03/2019 Encounters Date Type Department Care Team Description 05/16/2024 Telephone [place] [phone] Nelly Hernandez, RN 05/04/2024 2:30 PM EDT Office [place] [address] Lamar Alonzo MD Class 3 severe obesity with serious comorbidity and body mass index (BMI) of 60.0 to 69.9 in adult, unspecified obesity type (Primary Dx); Hypertriglyceridemia ; RUPERT (generalized anxiety disorder); Hypertension, unspecified type; SUDHA on CPAP; Anxiety; Frequent headaches; Insulin resistance; Dysuria 05/04/2024 Travel 05/02/2024 Travel from Last 3 Months Social History Tobacco Use Types Packs/Day Years Used Date Smoking Tobacco: Former Cigarettes Smokeless Tobacco: Never Tobacco Cessation:Counseling Given: Not Answered Comments:Rare cigarette in high school Alcohol Use Standard Drinks/Week Comments Not [...] money to buy more. Never true 10/15/19 Within the past 12 months, t he [...] to sleep or slept in a senior living (including now)? No 10/14/2022 DH IPV Inpatient [...] on file Sexual Orientation Not on file Last Filed Vital Signs Vital Sign Reading Time Taken Comments Blood Pressure 161/93 05/04/2024 2:37 PM EDT Pulse 70 01/25/2024 2:37 PM EDT Temperature 36.2 ??C (97.1 ??F) 08/19/2023 12:[address] Respiratory Rate 18 11/18/2023 9:35 AM EDT Oxygen Saturation 99% 11/18/2023 9:35 AM EDT Inhaled Oxygen Concentration - - Weight 201 kg (443 lb 3.2 oz) 05/04/2024 2:37 PM EDT Height 180.3 cm (5' 11) 05/04/2024 2:37 PM EDT Body Mass Index 61.81 05/04/2024 2:37 PM EDT Plan of Treatment Upcoming Encounters Date Type Department Care Team (Late st Contact Info) Description 08/17/2024 11:00 AM EST Office [place] [address] Lamar Alonzo MD [facility] DR [facility] [place] [address] Health Maintenance Due Date Last Done Comments HIV screen 2004 Hepatitis C Screening 2004 Hepatitis B vaccine (0-59 yrs) (1) 2005 Tetanus/Diphtheria/Pertussis Vaccines (1 - Tdap) 08/09 Covid-19 Vaccine (1 - season) 2024 Influenza (Flu) vaccine (1 o f 1 - Influenza standard series) 03/11/2024 Lipid Screening 02/12/2027 02/12/2022 Goals Goal Patient Goal Type Associated Problems Recent Progress Patient-Stated? Author Follow your diet plan as advised by your certified medical coder Courtney Owens RD Note: Images from the original note were not included. Nutrtion Goals: 04/25/23 TF Nutrition Goals: 03/28/23 TF Review and continue to work on the Eating Behaviors for success post gastric bypass Nutrition Goals updated today: 10/22/22 TF 1. Try Bolthouse dressing to reduce calories and increase in place Ranch 2. Work towards reducing total calroeus gradually to aim for 5241-6823 kcals (aim to reduce each meal by 100 kcals) Nutrition Goals updated today: 09/24/22 TF 1. Practice eating and drinking by 30 minutes on either side - successful at work; a little more difficult at home 2. Track all food for the next 4 weeks in to My Fitness Pal - aim for 2,000 calories/day at most; low carb; averaging ~ 1,900 kcals Procedures Procedure Name Priority Date/Time Associated Diagnosis Comments LAB SCAN 05/05/2024 12:00 AM EDT LAB SCAN 05/05/2024 12:00 AM EDT LAB SCAN 05/05/2024 12:00 AM EDT [facility] EXTERNAL LABS 2 Routine 02/12/2022 from Last 3 Months or Most Recently Relevant to Health Maintenance Results * Scan Doc: Lab (05/05/2024 12:00 AM EDT) Only the most recent of3 resultswithin the time period is included. Narrative 05/05/2024 12:00 AM EDT Ordered by an unspecified provider. Scanning Provider MEDIA MGR SCAN EXT O RDR/RSLT * [facility] Labs 2 - External (02/12/2022) Cholesterol, Total 144 Triglyceride 239 HDL Cholesterol 28 LDL Cholesterol 69 Hemoglobin A1c 5.3 Sodium 140 Potassium 3.9 Chloride 105 Blood Urea Nitrogen 15 Creatinine 0.6 Aspartate Aminotransferase 29 Alanine Aminotransferase 53 Thyroid Stimulating Hormone 1.39 02/12/2022 Historical Provider EXTERNAL LAB PADILLA CAMPA from Last 3 Months or Most Recently Relevant to Health Maintenance Advance Directives * Attempt Cardiopulmonary Resuscitation - Inpatient (Latest Code Status on File) Date Activated Date Inactivated Comments 07/27/2023 7:05 AM 07/28/2023 3:55 PM Question Answer Comments Code Status decision made by: Patient * Full Code Date Activated Date Inactivated Comments 11/13/2019 6:41 PM 11/14/2019 9:44 PM Question Answer Comments Does patient have capacity to make decision: Yes Care Teams Head Start Assistant Teacher Relationship Specialty Start Date End Date Keena Rosales APRN [address] [place] [address] PCP - General Family Medicine 11/04/21
--- OUTSIDE RECORDS SUMMARY | 2024-07-13 14:54 | XMS_ITS | Encounter Summary ---
Author Organization [facility] Address [facility] [place] [address] Care Team Providers Care Telephoner Name Role Phone Keena Rosales APRN Primary Care Provider [phone] [phone] Encounter Details Date Type Department Care Team (Latest Contact Info) Description 10/10/2023 Travel Social History Tobacco Use Types Packs/Day [...] place to sleep or slept in a penitentiary (including now)? No 10/14/2022 IPV Inpatient Questions [...] AM EST Office [place] [address] Lamar Alonzo MD [facility] DR [facility] [place] [address] documented as of this encounter Goals Goal Patient Goal Type Associated Problems Recent Progress Patient-Stated? Author Follow your diet plan as advised by your curve cleaner Courtney Owens RD Note: Images from the original note were not included. Nutrtion Goals: 04/25/23 TF Nutrition Goals: 03/28/23 TF Review and continue to work on the Eating Behaviors for success post gastric bypass Nutrition Goals updated today: 10/22/22 TF 1. Try Bolthouse dressing to reduce calories and increase in place Ranch 2. Work towards reducing total calroeus gradually to aim for 6037-3938 kcals (aim to reduce each meal by [...] on filedocumented in this encounter Care Teams Telephoner Relationship Specialty Start Date End Date Keena Rosales APRN [address] [place] [address] PCP - General Family Medicine 11/04/21 documented as of this encounter
--- OUTSIDE RECORDS SUMMARY | 2024-07-13 14:54 | XMS_ITS | Encounter Summary ---
Author Organization [facility] Address [facility] [address] Care Team Providers Care Roller Hand Name Role Phone Keena Rosales APRN Primary Care Provider [phone] [phone] Reason for Referral * Consultation (Routine) - Authorized Specialty Diagnoses / Procedures Referred By Alma ortega Referred To Contact Urology Diagnoses At risk for fertility problems Sebas Alcantara MD [facility] [place] [address] Pipo Jane MD [address] [place] [address], [facility] [address] [place] [address] Referral ID Status Reason Start Date Expiration Date Visits Requested Visits Authorized [id number] Authorized Consult, Test & Treat 02/03/2024 08/01/2024 1 1 Encounter Details Date Type Department Care Team (Late st Contact Info) Description 02/03/2024 [place] [address] Loly Spear, RN Social History Tobacco Use Types Packs/Day Years [...] a senior care (including now)? No 10/14/2022 DH IPV Inpatient [...] as of this encounter Progress Notes * Loly Spear RN - 02/03/2024 11:01 AM EDT Call returned to patient, informed patient that a referral was sent to Dr. Jane at [facility], patient agreed to call back if he would like to switch the referral to [facility]. documented in this encounter Miscellaneous Notes * Telephone Encounter - Loly Spear RN - 02/03/2024 10:09 AM EDT ----- Message from Sebas Alcantara sent at 02/02/2024 6:14 PM EDT ----- Please let him know that his semen analysis did not show any significant amount of sperm present. Given this I would recommend referral to Dr. Rojas for further evaluation and management. If he is amenable to that please place a referral and I will sign. Please note that Dr. Rojas is no longer at and now works at [facility]. Correction, analysis showed rare sperm but not enough to assess them. Again I would recommend a referral to Dr. Rojas ----- Message ----- From: Darrell Laura Sent: 02/02/2024 3:58 PM EDT To: Sebas Alcantara MD documented in this encounter Plan of Treatment Upcoming Encounters Date Type Department Care Team (Late st Contact Info) Description 08/17/2024 11:00 AM EST [place] [address] Lamar Alonzo MD [facility] DR [facility] [place] [address] Scheduled Referrals Name Type Priority Associated Diagnoses Orde r Schedule Referral to Urology Outpatient Referral Routine At risk for fertility problems Ordered: 02/03/2024 documented as of this encounter Goals Goal Patient Goal Type Associated Problems Recent Progress Patient-Stated? Author Follow your diet plan as advised by your interactive developer Courtney Owens I, DANTE Note: Images from the original note were not included. Nutrtion Goals: 04/25/23 TF Nutrition Goals: 03/28/23 TF Review and continue to work on the Eating Behaviors for success post gastric bypass Nutrition Goals updated today: 10/22/22 TF 1. Try Bolthouse dressing to reduce calories and increase in place Ranch 2. Work towards reducing total calroeus gradually to aim for 9879-4446 kcals (aim to reduce each meal by [...] as of this encounter Visit Diagnoses Diagnosis At risk for fertility problems Other specified conditions influencing health status documented in this encounter Care Teams Roller Hand Relationship Specialty Start Date End Date Keena Rosales APRN [address] [place] [address] PCP - General Family Medicine 11/04/21 documented as of this encounter
--- OUTSIDE RECORDS SUMMARY | 2024-07-13 14:54 | XMS_ITS | Encounter Summary ---
Author Organization [facility] Address [facility] [place] [address] Care Team Providers Care Agricultural Economist Name Role Phone Keena Rosales APRN Primary Care Provider [phone] [phone] Encounter Details Date Type Department Care Team (Latest Contact Info) Description 08/19/2023 Travel Social History Tobacco Use Types Packs/Day [...] place to sleep or slept in a [facility] (including now)? No 10/14/2022 IPV Inpatient Questions [...] AM EST Office [place] [address] Lamar Alonzo MD [facility] DR [facility] [place] [address] documented as of this encounter Goals Goal Patient Goal Type Associated Problems Recent Progress Patient-Stated? Author Follow your diet plan as advised by your flat screen worker Courtney Owens RD Note: Images from the original note were not included. Nutrtion Goals: 04/25/23 TF Nutrition Goals: 03/28/23 TF Review and continue to work on the Eating Behaviors for success post gastric bypass Nutrition Goals updated today: 10/22/22 TF 1. Try Bolthouse dressing to reduce calories and increase in place Ranch 2. Work towards reducing total calroeus gradually to aim for 2850-2670 kcals (aim to reduce each meal by [...] on filedocumented in this encounter Care Teams Agricultural Economist Relationship Specialty Start Date End Date Keena Rosales APRN [address] [place] [address] PCP - General Family Medicine 11/04/21 documented as of this encounter
--- OUTSIDE RECORDS SUMMARY | 2024-07-13 14:54 | XMS_ITS | Encounter Summary ---
Author Organization [facility] Address [facility] [place] [address] Care Team Providers Care Food Safety Director Name Role Phone Keena Rosales APRN Primary Care Provider [phone] [phone] Encounter Details Date Type Department Care Team (Latest Contact Info) Description 05/04/2024 Travel Social History Tobacco Use Types Packs/Day [...] place to sleep or slept in a [place] (including now)? No 10/14/2022 IPV Inpatient Questions [...] AM EST Office [place] [address] Lamar Alonzo MD [facility] DR [facility] [address] documented as of this encounter Goals Goal Patient Goal Type Associated Problems Recent Progress Patient-Stated? Author Follow your diet plan as advised by your maintainer plant Courtney Owens RD Note: Images from the original note were not included. Nutrtion Goals: 04/25/23 TF Nutrition Goals: 03/28/23 TF Review and continue to work on the Eating Behaviors for success post gastric bypass Nutrition Goals updated today: 10/22/22 TF 1. Try Bolthouse dressing to reduce calories and increase in place Ranch 2. Work towards reducing total calroeus gradually to aim for 5566-3377 kcals (aim to reduce each meal by [...] on filedocumented in this encounter Care Teams Food Safety Director Relationship Specialty Start Date End Date Keena Rosales APRN [address] [place] [address] PCP - General Family Medicine 11/04/21 documented as of this encounter
--- OUTSIDE RECORDS SUMMARY | 2024-07-13 14:54 | XMS_ITS | Encounter Summary ---
Author Organization [facility] Address [address] [place] [address] Care Team Providers Care Logistics Center Manager Name Role Phone Pipo Frazier PA-C Primary Care Provider +1 -[phone] Reason for Visit * Reason Onset Date Comments COVID-19 01/28/2020 Encounter Details Date Type Department Care Team (Late st Contact Info) Description 01/28/2020 Telephone [facility] [address] [place] [address] Unknown, Doctor COVID-19 Social History Tobacco Use Types Packs/Day Years [...] 14:31 EDT documented as of this encounter Miscellaneous Notes * Telephone Encounter - Danielle Boland - 01/28/2020 0934 EDT Pt called to schedule covid testing, faxed order up to [facility] to get pre op covid testing done. documented in this encounter Plan of Treatment Upcoming Encounters Date Type Department Care Team (Late st Contact Info) Description 10/02/2024 14:45 EDT Office Visit [facility] Urology - [address] [address] Pipo Jane MD [address] [facility] [place] [address] documented as of this encounter Visit Diagnoses Not on filedocumented in this encounter Care Teams Logistics Center Manager Relationship Specialty Start Date End Date Pipo Frazier PA-C PCP - General 10/05/19 10/21/21 documented as of this encounter
--- OUTSIDE RECORDS SUMMARY | 2024-07-13 14:54 | XMS_ITS | Encounter Summary ---
Author Organization [facility] Address [facility] [place] [address] Care Team Providers Care Cook Fishing Vessel Name Role Phone Keena Rosales APRN Primary Care Provider [phone] Reason for Visit * Reason Comments Follow-up Encounter Details Date Type Department Care Team (Late st Contact Info) Description 11/18/2023 10:30 AM EDT Office [place] [address] Natalia Singh APRN [facility] [place] [address] Nelly Slaughter, RD [facility] [place] [address] Intertrigo (Primary Dx); S/P gastric bypass; Disorder of iron metabolism Social History Tobacco Use Types Packs/Day Years [...] place to sleep or slept in a long-term (including now)? No 10/14/2022 DH IPV Inpatient [...] Sign Reading Time Taken Comments Blood Pressure 141/77 11/18/2023 9:35 AM EDT Pulse 97 11/18/2023 9:35 AM EDT Temperature - - Respiratory Rate 18 11/18/2023 9:35 AM EDT Oxygen Saturation 99% 11/18/2023 9:35 AM EDT Inhaled Oxygen Concentration - - Weight 204.6 kg (451 lb) 11/18/2023 9:35 AM EDT Height 180.3 cm (5' 10.98) 11/18/2023 9:35 AM E DT Body Mass Index 62.93 11/18/2023 9:35 AM EDT documented in this encounter Patient Instructions * Patient Instructions* Natalia Singh APRN - 11/18/2023 10:30 AM EDT BSP technician support association Kasia [phone] and Carla [phone] Dietitians: [phone] Surgeons/ nurse practitioners: [phone] Nurse line: [phone] Dear René, Please see your electronic medical record note from today for details we discussed at your visit. Below is some additional general information that you may find helpful. Testing: It would be helpful if you can have your lab work drawn a couple days before your visit xavier [facility] [place] facility so the results are available at the time of your follow up visit. If you have labwork done by your primary lpn care manager before that date, please have a copy sent to the Bariatric Surgery Program. Please call/send my [employer] message if you have not heard from us within 2 weeks of having labs work done. Here's the link to [facility] [place] Lab hours and locations: [email or web address] Next visit: Follow up visits are done at 4 months and 12 months after surgery and yearly thereafter. Some patients are evaluated on a more frequent basis. Please call [phone] if you do not receive an appointment by 3-4 weeks prior to the expected visit. Vitamins/Nutrition/Activity Recommendations: Please see your visit note for personalized recommendations General Vitamin recommendations: Multivitamins with minerals twice daily- needs [...] Blow dry area on low setting with behavioral sciences department chair. Avoid excessive heat and/or sweating as friction and moisture can exacerbate disease. Try OTC Dove clinical strength anti perspirant to affected areas nightly or an absorbent powder such as Gold Calixto and [...] control for women of child bearing age: is recommended for at least 18-24 months after surgery. f non-prescribed drugs and treet drugs is unsafe Anti-inflammatory medications such as Ibuprofen (Advil), Aleve (Naproxen), Excedrin, Lizzie-Wilson should be used sparingly after gastric bypass, since they increase the risk of ulcer and bleeding. A bone mineral density scan (DEXA) is recommended every 2 years after bariatric surgery. Please schedule this study through your primary care providers office. Hair Loss: is associated with rapid [...] be increased with higher than predicted weight loss Potential lifetime risks of sleeve gastrectomy include developed heartburn or severe reflux Call us: If you have concerns. If you have unexplained abdominal pain. if you see blood in your stool or vomit blood If you have prolonged vomiting Post Surgery Support Group: Our post surgery support group meets at [facility] [place] on the first Tuesday of every month from 1:00 PM-2:00 PM. You can attend online or in person. Use the following link to attend online: [email or web address] Nutrition and Activity apps- Baritastic, My Fitness Pal, Lose It, My Plate Internet resources: www.WowOwow www.HealthyMe Mobile Solutions www.bariatriceating.Mobilization Labs www.VeriWave.Mobilization Labs/blog [facility] [place] facebook page: [email or web address]://www.[email or web address] Books & Magazines: - Recipes for Life After Weight Loss Surgery by Andie Craft - Shrink Yourself by Dr Bertram Castañeda - Eating Well - www.Enstratius.Mobilization Labs - Cooking Light- www.cookinglight.Mobilization Labs Anxiety: The Happiness Trap by Mihir Pace The Mindfulness and acceptance workbook for anxiety By Marquez Hernandez. Mindful eating: What are you Hungry For? By Tony Mai The Mindful Diet by Bailey Francsi and the [facility] group. Emotional eating: End Emotional Eating by Nelly Rubi Calming the Emotional Storm Massiel Marin documented in this encounter Progress Notes * Natalia Singh APRN - 11/18/2023 10:30 AM EDT [place] [address] Reason for visit: Bariatric Surgery follow up visit Subjective: René Wayne is s/p laparoscopic Juan Jose-en-Y gastric bypass on 07/27/[address] Garcia, he presents today for 4 month post bariatric surgery follow up. Overall tolerating foods/fluids and trying to make sure he is meeting nutritional/fluid requirements (meeting goals). Pt reports no difficulty swallowing, epigastric pain. No N/V. BM are without problems. Patient is taking PPI for ulcer prevention post surgery. No bariatric related concerns/complaints today. René stopped anxiety medications after discussion with PCP. No panic attacks. Still in therapyevery other week. Reports mood has been good. Current Supplements: Multi-vitamin with minerals/iron only taking two daily (Centrum for men?) Calcium citrate 2 pills twice daily Vit B12 ? 500 mcg daily Vit D3 ? IU daily Iron supplement ? Kind/dose twice a week. Interim Health: Patient reports health has been stable overall. No bariatric related surgeries, hospitalizations, or ED visits since the last visit. No kidney stones or atraumatic fractures. Pt follows with PCP/specialist for disease management and age specific screening. Pre-Bariatric Surgery Obesity related medical issues: Problem Baseline issue if checked Comments Diabetes/prediabetes/insulin resistance [] No longer on Metformin, victoza or topirimate - was taking for weight loss. Metabolic syndrome or PCOS [] HTN [x] Taking propranolol (but on lower dose) GERD [] Still taking PPI for ulcer prevention (d/c today). Hyperlipidemia [x] Txing with lifestyle. SUDHA [x] Using BiPAP, sleeping. Musculoskeletal issues [x] Chronic back and knee pain - manageable. Liver Disease [x] Hepatomegaly. Other [x] -Hx TIA (temporary unilateral vision loss 2021) ED workout didn't determine cause ([facility]). -Hx alcohol misuse Patient Active Problem List Diagnosis Code Anxiety [...] F41.0 S/P cholecystectomy Z90.49 Morbid obesity E66.01 Review of Systems Constitutional: energy level is stable, no c/o restless leg, no pica, no hair thinning/loss. Neuro: no c/o paresthesias. No changes in memory. CV: no chest pain or palpitations. Pulm: denies SOB or cough. GI: as above. Skin: Endorses redundant skin intermittent skin fold rashes (OTC powder). Health Habits: Tobacco/Nicotine use: none. ETOH use: none. (Patient with hx alcohol misuse/abuse). NSAID use. Exercise: You tube cardio workouts. Looking forward to swimming this summer. Social History: Lives with his Cherelle jernigan. 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 Dietary history/ exericse/ activity level: See dietitian note from today's visit for complete dietary evaluation. Meds and Allergies reviewed. WT (lbs) BMI HT Highest wt Initial Pre-op visit 05/12/23 491 68.7 5'11 Post-op WT (lbs) BMI %EBW lost 08/19/23 481 67 3% 11/18/23 451 62.9 13% Objective: BP 141/77 Pulse 97 Resp 18 Ht 180.3 cm (5 10.98) Wt (!) 204.6 kg (451 lb) SpO2 99% BMI 62.93 kg/m?? Physical Exam General: Alert, pleasant, NAD, appears well. Abdomen: Soft, non-distended, non-tender. Well healed incisions. Respiratory: No increased work of breathing. Speaking in full sentences. No cough/wheeze witnessed. Skin: Moderate excess skin noted over abdomen. Skin is warm and dry. No rash noted on exam today. Psychiatric: Normal mood and affect. Appropriate eye contact. Recent Results (from the past 72 hour(s)) Hemogram Result Value Ref Range WBC 8.2 4.0 - 9.5 x10(3)/mcL RBC 4.70 4.58 - 5.54 x10(6)/mcL Hemoglobin 12.7 (L) 13.7 - 16.5 g/dL Hematocrit 39.2 (L) 40.5 - 48.5 % MCV 83.4 82.9 - 93.1 fL MCH 27.0 (L) 27.5 - 32.1 pg MCHC 32.4 32.0 - 35.7 g/dL Platelets 344 145 - 357 x10(3)/mcL RDWSD 42.9 36.0 - 45.0 fL RDWCV 14.3 (H) 11.4 - 13.8 % MPV 8.7 7.6 - 12.9 fL nRBC % Auto 0.0 % nRBC Abs Auto 0.000 0.000 - 0.000 x10(3)/mcL Comprehensive metabolic panel (non-fasting) Result Value Ref Range Glucose Lvl 101 65 - 199 mg/dL BUN 13 10 - 20 mg/dL Creatinine 0.65 (L) 0.80 - 1.50 mg/dL Sodium 141 135 - 145 mmol/L Potassium 4.2 3.5 - 5.0 mmol/L Chloride 105 98 - 107 mmol/L CO2 27 22 - 31 mmol/L Anion Gap 9 5 - 15 mmol/L Calcium 9.4 8.5 - 10.5 mg/dL Total Protein 7.0 6.1 - 8.0 g/dL Albumin 4.0 3.2 - 5.2 g/dL AST 14 0 - 39 unit/L ALT 24 0 - 55 unit/L Alk Phos 116 40 - 130 unit/L Total Bilirubin 0.2 0.2 - 1.3 mg/dL Estimated GFR 124 >=60 mL/min/1.73 m?? Iron and TIBC Result Value Ref Range Iron 44 (L) 45 - 160 mcg/dL TIBC 262 250 - 450 mcg/dL Iron Saturation 17 (L) 20 - 50 % Ferritin Result Value Ref Range Ferritin 228 31 - 409 ng/mL Folate, serum Result Value Ref Range Folate Lvl 16.6 4.8 - 24.2 ng/mL PTH Result Value Ref Range PTH 54 15 - 65 pg/mL Vitamin D, 25-Hydroxy Result Value Ref Range 25-OH Vit D Total 34 21 - 100 ng/mL 25-OH Vit D Interp Sufficient Assessment 38 y.o. male 4 months s/p Juan Jose-en-Y gastric bypass with 13% of excess body weight lost. Plan: S/p bariatric surgery: Doing well from a bariatric surgery perspective, overall pleased with surgical outcome. Discussed dietary considerations and strategies for continued success . Reviewed importance of meeting nutritional/protein/fluid requirements, tracking food/preplanning, meal prep, pairing carbs with protein andfollowing post bariatric eating behaviors. Recommended regular exercise. Patient has met with nougat cutter machine today, please see note for additional details/dietary evaluation. PPI for ulcer prevention: discussed tapering down to every other day x 2 weeks and discontinue if no heartburn, reflux/regurg or epigastric pain. Resume PPI if above sx occur. Advised that hair loss due to rapid weight loss is typical for this early post- surgery time frame, will improve with time and adequate protein/calorie intake. Avoid ETOH until 6-12 months post-operatively, and then should be used in small amounts Excess skin/skin fold rashes caused by weight loss: Reviewed pt education re: skin care and treatment of skin fold rashes. Discussed OTCs including barrier creams and anti-friction products. F/u if recommended strategies fail to improve sx. Obesity related co-morbidities Improved/stable overall. Risk for vitamin deficiencies: Reviewed lab results as above. Mild anemia, will continue to monitor. Vitamin D below goal but improved since last checked - continue current dose. Reviewed recommended vitamin/mineral supplements- take iron with vitamin C or switch to Vitron C. See RD note for additional details re: vitamin/mineral supplementation. Pt reminded that a bone mineral density scan (DEXA) is recommended every 2 years after bariatric surgery. Follow up with JERAMIE ENAMORADO as scheduled in January. RTC in 8 months for 1 year post bariatric surgery follow up visit, with labs. Call/rtc sooner prn with questions/concerns, unexplained abdominal pain, prolonged nausea, vomiting or inability to hydrate, questions or concerns. Bariatric Program Summary report is availabe for patient's review via e- I spent a total of 30 minutes associated with this encounter, including chart review, the patient encounter, and documentation. Natalia Singh APRN RECOMMENDED BARIATRIC SURGERY PROGRAM POSTOPERATIVE FOLLOW-UP: Follow up: done at 4, 12 and yearly thereafter. High risk patients are evaluated on a more frequentbasis. *Typical Supplement recommendations: Multivitamin with minerals twice a day, B12 500 mcg once a day, calcium citrate 600 mg/400 units vitamin D twice a day, iron (ferrous fumarate, carbonyl iron taken with vitamin C 250 mg once every other day) for menstruating females or those with Iron Deficiency. Labwork: Hemogram, ferritin, iron (transferrin) saturation, iron, folate, B1, B12, D (25 hydroxy only), Intact PTH and comprehensive metabolic profile at 4, 12 months and yearly. If labwork is done by the primary lpn care manager: please send a copy to the Bariatric Surgery Program, General Surgery Clinic, [facility] [place], or fax [phone] * Nelly Slaughter, RD - 11/18/2023 10:30 AM EDT Bariatric Nutrition Follow-up Visit Topics Discussed/Patient Concerns: Things are going OK for the most part. Still trying to do low carb. 2 yogurts per day for snacks at work. Salad with protein at lunch. Dinner is protein and vegetables. Wishes his weight loss was more. Plateaued the past 2 weeks. 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 Girlfriend, Cherelle. Lives [...] 11/18/23 451# 13% 62.9 4 months post-op Rumely Body Weight (based on BMI of 25): 179# 30-70% Excess Weight Loss: 273-398#; 50% Excess Weight Loss: 335# MEDICATIONS: Vitamin/Mineral Supplements (reported by patient): Supplement Type Brand/Form Dosage/Amount Frequency Comments Multivitamin Centrum for men 1 pill Twice daily Calcium citrate 2 pill Twice daily Vitamin B12 ?500 mcg daily Iron ? dose 2 x week take with vitamin C Vitamin D3 ? dose daily Food Allergies/Intolerances: none Tracking Intake: Pen and paper Daily Oral Intake: Breakfast Egg with salsa on 07/12 wrap AM Snack High protein yogurt- Yoplait high protein, low sugar (15 g) Lunch Garden salad with taco meat and guac (~1 cup) PM Snack Another yogurt Dinner Maize geovany with cheese, 1 c mixed vegetables (frozen) HS Snack Protein- grams/day: ~70 g Hydrating fluids - oz/day: At least 64 oz water. Sometimes SF Kranthi Aid Soda: Tried a few sips with seltzer ETOH: None Caffeine: Rare cup of hot tea Meals per day: 3 Other: Hunger: doesn't feel as satisfied as he did. Vomiting/ regurgitation: None Nausea: None. Constipation/diarrhea: BM daily. occ loose stools. Presurgery: Occ loose stools- may be medication induced. BM daily. Exercise: energy is good. 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 A little [employer] video 15-20 minutes: 3 x week. ASSESSMENT: Patient s/p bariatric surgery with 13% EWL. Currently experiencing a weight loss plateau. He is tolerating the diet and is meeting protein and fluid goals. Reviewed supplements; labs pending. PLAN: Evaluation by Natalia Singh APRN today. Provided support/encouragement and reinforced importance of meeting nutritional goals. Think about hunger and when you feel hungry during the day. How long do you feel satisfied after eating? Keep up the good work meeting protein and fluid goals. Reviewed vitamin and mineral supplement recommendations. Send a picture via [employer] of your vitamins. Multivitamins with minerals twice daily- needs to be an under 50 multivitamin that contains iron. Vitamin B12 500 mcg by mouth once daily Calcium citrate 600 mg with Vitamin D 400 units twice daily (2 pills twice a day). Vitamin D 8010-4197 IU daily Iron - 65 mg iron with vitamin C 2 times per week (Tuesday/Tuesday), Vitron C is a popular option. Take miralax 1 cap a day on the day you take your iron supplement to minimize risk of constipation. Space iron 2 hours from calcium supplementation Do not take iron with caffeine, fiber, thyroid medications or dairy products F/u with Dr. Alonzo on 01/25/24. Follow-up in July 2024 with ALARM INSTALLER/RD, sooner if requested. documented in this encounter Plan of Treatment Upcoming Encounters Date Type Department Care Team (Late st Contact Info) Description 08/17/2024 11:00 AM EST Office [place] [address] Lamar Alonzo MD [facility] DR [facility] [place] [address] documented as of this encounter Goals Goal Patient Goal Type Associated Problems Recent Progress Patient-Stated? Author Follow your diet plan as advised by your landscape maintenance internship Courtney Owens RD Note: Images from the original note were not included. Nutrtion Goals: 04/25/23 TF Nutrition Goals: 03/28/23 TF Review and continue to work on the Eating Behaviors for success post gastric bypass Nutrition Goals updated today: 10/22/22 TF 1. Try Bolthouse dressing to reduce calories and increase in place Ranch 2. Work towards reducing total calroeus gradually to aim for 6919-1687 kcals (aim to reduce each meal by [...] as of this encounter Visit Diagnoses Diagnosis Intertrigo- Primary Other specified erythematous condition S/P gastric bypass Bariatric surgery status Disorder of iron metabolism Other disorders of iron metabolism documented in this encounter Care Teams Cook Fishing Vessel Relationship Specialty Start Date End Date Keena Rosales APRN [address] [place] [address] PCP - General Family Medicine 11/04/21 documented as of this encounter
--- OUTSIDE RECORDS SUMMARY | 2024-07-13 14:54 | XMS_ITS | Encounter Summary ---
Author Organization [facility] Address [address] [place] [address] Care Team Providers Care Senior Developer Name Role Phone Pipo Frazier PA-C Primary Care Provider [phone] [phone] Reason for Visit * Reason Onset Date Comments Appointment Related 12/17/2019 Encounter Details Date Type Department Care Team (Late st Contact Info) Description 12/17/2019 Telephone [facility] Bariatric Surgery - [address] [phone] Bola Chu MD [address] [place] [phone] Appointment Related Social History Tobacco Use Types [...] have Coronavirus / COVID-19? No / Unsure 12/17/2019 8:11 EDT documented as of this encounter Miscellaneous Notes * Telephone Encounter - Dali Mora - 12/17/2019 0811 EDT Spoke to patient and completed travel screening for appointment with Dr Chu on 12/17/2019. documented in this encounter Plan of Treatment Upcoming Encounters Date Type Department Care Team (Late st Contact Info) Description 10/02/2024 14:45 EDT Office Visit [facility] Urology - [address] [phone] Pipo Jane MD [address] [facility] [place] [address] documented as of this encounter Visit Diagnoses Not on filedocumented in this encounter Care Teams Senior Developer Relationship Specialty Start Date End Date Pipo Frazier PA-C PCP - General 10/05/19 10/21/21 documented as of this encounter
--- OUTSIDE RECORDS SUMMARY | 2024-07-13 14:54 | XMS_ITS | Encounter Summary ---
Author Organization [facility] [place] [address] Care Team Providers Care Tower Attendant Name Role Phone Keena Rosales APRN Primary Care Provider [phone] [phone] Encounter Details Date Type Department Care Team (Late st Contact Info) Description 10/27/2023 [place] [phone] Joyce Dan RN Social History Tobacco Use Types Packs/Day [...] in a long-term (including now)? No 10/14/2022 IPV Inpatient Questions [...] as of this encounter Miscellaneous Notes * Addendum Note - Sebas Antunez MD - 10/27/2023 1:42 PM EDTAddended by: SEBAS ANTUNEZ on: 10/27/2023 01:42 PM Modules accepted: Orders * Addendum Note - Joyce Dan RN - 10/27/2023 1:16 PM EDTAddended by: JOYCE DAN on: 10/27/2023 01:16 PM Modules accepted: Orders * Telephone Encounter - Joyce Dan RN - 10/27/2023 12:15 PM EDT Patient notified of semen analysis results and recommendations. Patient agreed to referral to Dr. Jane. Patient also states that he will be at [facility] on 11/[address] Antunez wants to do repeat semen analysis. Message sent to Dr. Antunez * Telephone Encounter - Joyce Dan RN - 10/27/2023 12:11 PM EDT ----- Message from Sebas Antunez MD sent at 10/27/2023 11:44 AM EDT ----- Please let him know his semen analysis showed a low sperm count. I would recommend that this be repeated. Alternatively I would also recommend that I refer him to Dr. Jane at [facility] for further evaluation of this issue. ----- Message ----- From: Darrell Laura Sent: 10/27/2023 11:20 AM EDT To: Sebas Antunez MD documented in this encounter Plan of Treatment Upcoming Encounters Date Type Department Care Team (Late st Contact Info) Description 08/17/2024 11:00 AM EST Office [place] [address] Lamar Alonzo MD [facility] [address] [facility] [place] [address] documented as of this encounter Goals Goal Patient Goal Type Associated Problems Recent Progress Patient-Stated? Author Follow your diet plan as advised by your pie bakery laborer Courtney Owens RD Note: Images from the original note were not included. Nutrtion Goals: 04/25/23 TF Nutrition Goals: 03/28/23 TF Review and continue to work on the Eating Behaviors for success post gastric bypass Nutrition Goals updated today: 10/22/22 TF 1. Try Bolthouse dressing to reduce calories and increase in place Ranch 2. Work towards reducing total calroeus gradually to aim for 4389-4448 kcals (aim to reduce each meal by [...] encounter Results * Semen Analysis - Tong (01/25/2024) Semen 01/25/2024 Sebas Antunez MD [employer] S ORDERABLES documented in this encounter Visit Diagnoses Diagnosis At risk for fertility problems Other specified conditions influencing health status documented in this encounter Care Teams Tower Attendant Relationship Specialty Start Date End Date Keena Rosales APRN [address] [place] [address] PCP - General Family Medicine 11/04/21 documented as of this encounter
--- OUTSIDE RECORDS SUMMARY | 2024-07-13 14:54 | XMS_ITS | Encounter Summary ---
Author Organization [facility] Address [facility] [place] [address] Care Team Providers Care Account Relationship Manager Name Role Phone Keena Rosales APRN Primary Care Provider [phone] [phone] Encounter Details Date Type Department Care Team (Latest Contact Info) Description 03/17/2024 Travel Social History Tobacco Use Types Packs/Day [...] a senior living (including now)? No 10/14/2022 IPV Inpatient Questions [...] AM EST Office [place] [address] Lamar Alonzo MD [facility] DR [facility] [place] [address] documented as of this encounter Goals Goal Patient Goal Type Associated Problems Recent Progress Patient-Stated? Author Follow your diet plan as advised by your concaving machine operator Courtney Owens RD Note: Images from the original note were not included. Nutrtion Goals: 04/25/23 TF Nutrition Goals: 03/28/23 TF Review and continue to work on the Eating Behaviors for success post gastric bypass Nutrition Goals updated today: 10/22/22 TF 1. Try Bolthouse dressing to reduce calories and increase in place Ranch 2. Work towards reducing total calroeus gradually to aim for 9926-7553 kcals (aim to reduce each meal by [...] on filedocumented in this encounter Care Teams Account Relationship Manager Relationship Specialty Start Date End Date Keena Rosales APRN [address] [place] [address] PCP - General Family Medicine 11/04/21 documented as of this encounter
--- OUTSIDE RECORDS SUMMARY | 2024-07-13 14:54 | XMS_ITS | Encounter Summary ---
Author Organization [facility] Address [address] [place] [address] Care Team Providers Care Change Management Specialist Name Role Phone Pipo Frazier PA-C Primary Care Provider [phone] [phone] Encounter Details Date Type Department Care Team (Latest Contact Info) Description 02/01/2020 9:12 EDT - 02/01/2020 23:59 EDT Hospital Encounter [facility] - [facility] [address] [place] [address] Bola Chu MD [address] [place] [phone] Discharge Disposition: Home or Self Care Social [...] 9:11 EDT documented as of this encounter Last Filed Vital Signs Vital Sign Reading Time Taken Comments Blood Pressure 144/88 02/01/2020 1041 EDT Pulse - - Temperature 36.3 ??C (97.3 ??F) 02/01/2020 1027 EDT Respiratory Rate 24 02/01/2020 1041 EDT Oxygen Saturation 98% 02/01/2020 1041 EDT Inhaled Oxygen Concentration - - Weight 217.7 kg (480 lb) 02/01/2020 0933 EDT Height 180.3 cm (5' 11) 02/01/2020 0933 EDT Body Mass Index 66.95 02/01/2020 0933 EDT documented in this encounter Medications at Time of Discharge busPIRone (BUSPAR) 5 mg tablet Take 5 mg by mouth daily. hydrOXYzine (ATARAX) 25 mg tablet Take 25 mg by mouth daily. LORazepam (ATIVAN) 0.5 mg tablet Take 1 mg by mouth as needed for Anxiety. venlafaxine HCl (VENLAFAXINE ORAL) Take 325 mg by mouth daily. documented as of this encounter Discharge Disposition Disposition Code Departure Means Destination Home or Self [facility] documented in this encounter Progress Notes * Eufemia Villarreal - 02/01/2020 0942 EDT Have you had any of the following symptoms? Runny Nose:No Fever:No Shortness of Breath:No Cough:No Fatigue:No Diarrhea not related to prep or chronic illness:No Have you traveled to a high risk area within the past 14 days?No Reference: Https://wwwnc.cdc.gov/travel.notices Have you been in close contact (less than 6 feet) with someone who has been diagnosed with COVID 19?No documented in this encounter H&P Notes * Bola Chu MD - 02/01/2020 1000 EDT Endoscopy Sedation for Procedure History & Physical Date: 02/01/2020 Time: 10:00 Location: [facility] GI[facility] Planned Procedure: EGD Chief Complaint/Indications for Procedure: GERD History Previous Complication with Sedation and/or Anesthesia? Allergies: No Known Allergies Current Medications: Current Outpatient Medications: busPIRone (BUSPAR) 5 mg tablet hydrOXYzine (ATARAX) 25 mg tablet LORazepam (ATIVAN) 0.5 mg tablet venlafaxine HCl (VENLAFAXINE ORAL) Current Facility-Administered Medications: diphenhydrAMINE (BENADRYL) injection 25 mg intravenous Once PRN lactated ringers (LR) infusion intravenous CONTINUOUS lidocaine (PF) 10 mg/mL (1 %) injection 2 mg intradermal PRN lidocaine (PF) 10 mg/mL (1 %) injection 2 mg intradermal PRN sodium chloride 0.9 % (flush) flush 3 mL intravenous PRN Past Medical History: Past Medical History: Diagnosis Date ??? Mental disorder ??? Sleep apnea cpap Social History: Past Surgical History: Procedure Laterality Date ??? CHOLECYSTECTOMY Social History Tobacco Use ??? Smoking status: Never Smoker ??? Smokeless tobacco: Never Used Substance Use Topics ??? Alcohol use: Yes Comment: occasionally Family History: Family History Problem Relation Age of Onset ??? Colon Cancer Neg Hx ??? Colon Polyps Neg Hx ??? Esophageal Cancer Neg Hx ??? Pancreatic Cancer Neg Hx ??? Rectal Cancer Neg Hx ??? Stomach Cancer Neg Hx Review of Systems as pertinent: Physical Exam Vital Signs: BP 132/74 Temp 36.4 ??C (97.5 ??F) (Tympanic) Resp 18 Ht 180.3 cm (71) Wt (!)217.7 kg (480 lb) SpO2 98% BMI 66.95 kg/m?? Heart Examination: Cardiac Regularity: Regular Respiratory Examination: Respiratory Pattern: Regular Breath Sounds Right: Clear Breath Sounds Left: Clear Abdominal Examination: Soft, non-tender, bowel sounds normal, no masses, no organomegaly Additional physical exam related to the proposed procedure, patient activity, disease state and treatment as pertinent: Assessment Previous complications with sedation or anesthesia?: No Airway Concerns: None/NA Anesthesia Classification: ASA 1 Plan: Proceed with sedation for procedure Fasting Time: Date of Last Liquid: 01/31/20 Time of Last Liquid: 1899 Date of Last Solid: 01/31/20 Time of Last Solid: 1899 Patient Appropriate Candidate for Planned Sedation?: Yes Bola Chu MD 02/01/2020 10:00Endoscopy Sedation for Procedure History & Physical Date: 02/01/2020 Time: 10:00 Location: [facility] Planned Procedure: * No procedures listed * Chief Complaint/Indications for Procedure: * No pre-op diagnosis entered * History Previous Complication with Sedation and/or Anesthesia? Allergies: No Known Allergies Current Medications: Current Outpatient Medications: busPIRone (BUSPAR) 5 mg tablet hydrOXYzine (ATARAX) 25 mg tablet LORazepam (ATIVAN) 0.5 mg tablet venlafaxine HCl (VENLAFAXINE ORAL) Current Facility-Administered Medications: diphenhydrAMINE (BENADRYL) injection 25 mg intravenous Once PRN lactated ringers (LR) infusion intravenous CONTINUOUS lidocaine (PF) 10 mg/mL (1 %) injection 2 mg intradermal PRN lidocaine (PF) 10 mg/mL (1 %) injection 2 mg intradermal PRN sodium chloride 0.9 % (flush) flush 3 mL intravenous PRN Past Medical History: Past Medical History: Diagnosis Date ??? Mental disorder ??? Sleep apnea cpap Social History: Past Surgical History: Procedure Laterality Date ??? CHOLECYSTECTOMY Social History Tobacco Use ??? Smoking status: Never Smoker ??? Smokeless tobacco: Never Used Substance Use Topics ??? Alcohol use: Yes Comment: occasionally Family History: Family History Problem Relation Age of Onset ??? Colon Cancer Neg Hx ??? Colon Polyps Neg Hx ??? Esophageal Cancer Neg Hx ??? Pancreatic Cancer Neg Hx ??? Rectal Cancer Neg Hx ??? Stomach Cancer Neg Hx Review of Systems as pertinent: Physical Exam Vital Signs: BP 132/74 Temp 36.4 ??C (97.5 ??F) (Tympanic) Resp 18 Ht 180.3 cm (71) Wt (!)217.7 kg (480 lb) SpO2 98% BMI 66.95 kg/m?? Heart Examination: Cardiac Regularity: Regular Respiratory Examination: Respiratory Pattern: Regular Breath Sounds Right: Clear Breath Sounds Left: Clear Abdominal Examination: Soft, non-tender, bowel sounds normal, no masses, no organomegaly Additional physical exam related to the proposed procedure, patient activity, disease state and treatment as pertinent: Assessment Previous complications with sedation or anesthesia?: No Airway Concerns: None/NA Anesthesia Classification: ASA 1 Plan: Proceed with sedation for procedure Fasting Time: Date of Last Liquid: 01/31/20 Time of Last Liquid: 1899 Date of Last Solid: 01/31/20 Time of Last Solid: 1899 Patient Appropriate Candidate for Planned Sedation?: Yes Bola Chu MD 02/01/2020 10:00 documented in this encounter Plan of Treatment Upcoming Encounters Date Type Department Care Team (Late st Contact Info) Description 10/02/2024 14:45 EDT Office Visit [facility] - [facility] [address], [place] [id number] Pipo Jane MD [address] [facility], [address] [place] [address] documented as of this encounter Procedures Procedure Name Priority Date/Time Associated Diagnosis Comments UPPER ENDOSCOPY PROCEDURE Routine 02/01/2020 10:19 EDT SURGICAL PATHOLOGY Routine 02/01/2020 10 :08 EDT documented in this encounter Results * UPPER ENDOSCOPY PROCEDURE (02/01/2020 10:19 EDT) Anatomical Region Laterality Modality Endoscopy Narrative 02/01/2020 10:19 EDT Procedure Performed EGD Indications for Exam GERD Procedure Technique A physical exam was performed. Informed consent was obtained from the patient after explaining all the risks (perforation, bleeding, infection and adverse effects to the medicine), benefits and alternatives to the procedure which the patient appeared to understand and so stated. ??The patient was connected to the monitoring devices and placed in the left lateral position. Continuous oxygen was provided with a nasal cannula and IV medicine administered through a indwelling cannula. After adequate sedation was achieved the gastroscope was inserted under direct vision into the esophagus and then carefully advanced to the Second part of duodenum. The Second part of duodenum was identified by visual landmarks. The scope was subsequently removed slowly while carefully examining the color, texture, anatomy, and integrity of the mucosa on withdrawal. The patient was subsequently transferred to the recovery area in satisfactory condition. Estimated Blood Loss: None Complications None Medications Versed 2 mg Fentanyl 100 mcg I was in continuous face to face attendance during the administration of moderate sedation services that were monitored by an independent trained observer who had no other duties during the procedure. ??Total sedation time was ??7 ??minutes. Findings ESophagus= normal GEJ = Normal Stomach= Gastritis, bx for H pylori Pylorus= Normal Doudenum= normal Diagnosis Gastritis Recommendations Follow biopsy results. This electronic signature authenticates all electronic and/or handwritten documentation, including orders, generated by the signer during the episode of care contained in this record. 02/01/2020 10:19:33 AM By Bola Giang MD us Bola Chu MD GI PROCEDURE ORDERABLES Final Result * SURGICAL PATHOLOGY (02/01/2020 10:08 EDT) Final Diagnosis A. STOMACH, BIOPSY: - Gastric fundic mucosa with no significant diagnostic abnormality. - Negative for Helicobacter pylori microorganisms on H&E stained sections. 02/04/2020 14:29 EDT [facility] at 1429 Attestation By the signature below, the attending physician certifies that they have 1) personally conducted a gross and/or microscopic examination of the described specimen(s), and/or personally interpreted the results of laboratory testing of the described specimen(s), and 2) personally rendered or confirmed the above diagnosis. 02/04/2020 14:29 EDT [facility] at 1429 Clinical History Not listed 02/04/2020 14:29 EDT [facility] Gross Description A. Received in formalin labelled with proper patient identification (initials Y, J) and gastric Bx R/O H pylori is a culp-pink tissue (0.4 x 0.2 x 0.2 cm). Submitted in toto in A1. Andie Owusu 02/01/2020 13:13 02/04/2020 14:29 EDT [facility] Scanned Images 02/04/2020 14:29 T [facility] Tissue SPECIMEN FROM STOMACH OBTAINED BY TOTAL GASTRECTOMY / Unknown 02/01/2020 10:08 EDT 02/01/2020 12:13 EDT us Bola Chu MD PATHOLOGY ORDERABLES Final Res ult [facility] [address] [place] [address] documented in this encounter Visit Diagnoses Not on filedocumented in this encounter Administered Medications Inactive Administered Medications - up to 3 most recent administrations Medication Order MAR Action Action Date Dose Rate Site fentaNYL citrate (PF) injection intravenous, PRN, Starting on Tue02/01/20 at 1011, Until Tue02/01/20 at 1011, Routine Given 02/01/2020 10:11 EDT 100 mcg lactated ringers (LR) infusion 30 mL/hr, intravenous, CONTINUOUS, Starting on Tue02/01/20 at 0945, Until Tue02/04/20 at 0201, Routine, Preprocedure New Bag 02/01/2020 9:32 EDT 30 mL/hr 30 mL/hr lidocaine (XYLOCAINE) 2 % viscous solution oral, PRN, Starting on Tue02/01/20 at 1007, Until Tue02/01/20 at 1007, Routine Given 02/01/2020 10:07 EDT 10 mL midazolam (MDV) (VERSED) injection intravenous, PRN, Starting on Tue02/01/20 at 1011, Until Tue02/01/20 at 1011, Routine Given 02/01/2020 10:11 EDT 2 mg documented in this encounter Orders Medications Ordered That Luis ht Not Have Been Administered Count Last Ordered Date First Ordered Date diphenhydrAMINE (BENADRYL) injection 25 mg 1 02/01/2020 lidocaine (PF) 10 mg/mL (1 % ) injection 2 mg 2 02/01/2020 sodium chloride 0.9 % (flush) flush 3 mL 1 02/01/2020 documented in this encounter Care Teams Change Management Specialist Relationship Specialty Start Date End Date Pipo Frazier PA-C PCP - General 10/05/19 10/21/21 documented as of this encounter
--- OUTSIDE RECORDS SUMMARY | 2024-07-13 14:54 | XMS_ITS | Encounter Summary ---
Author Organization [facility] Address [address] [place] [address] Care Team Providers Care Fuse Coiler Name Role Phone Pipo Frazier PA-C Primary Care Provider [phone] Reason for Visit * Reason Onset Date Comments Appointment Related 10/08/2019 Encounter Details Date Type Department Care Team (Late st Contact Info) Description 10/08/2019 Telephone [facility] Bariatric Surgery [facility] [address], [place] [id number] Romina Knight, PhD [address] [place] [address] Appointment Related Social History Tobacco Use Types Packs/Day Years Used Date Smoking Tobacco: Never Assessed Sex and Gender Information Value Date Recorded Sex Assigned at Not on file Legal Sex Male 12:14 EST Gender Identity Male 10/05/2019 14:05 EDT Sexual Orientation Not on file documented as of this encounter Miscellaneous Notes * Telephone Encounter - Herbie Ferraro - 10/08/2019 0949 EDT LMOM regarding Zoom set up for upcoming 10/09/19 tele-video appointment with Romina Knight. documented in this encounter Plan of Treatment Upcoming Encounters Date Type Department Care Team (Late st Contact Info) Description 10/02/2024 14:45 EDT Office Visit [facility] Urology - [address] [address] Pipo Jane MD [address] [facility], [address] [place] [phone] documented as of this encounter Visit Diagnoses Not on filedocumented in this encounter Care Teams Fuse Coiler Relationship Specialty Start Date End Date Pipo Frazier PA-C PCP - General 10/05/19 10/21/21 documented as of this encounter
--- OUTSIDE RECORDS SUMMARY | 2024-07-13 14:54 | XMS_ITS | Encounter Summary ---
Author Organization [facility] [place] [address] Care Team Providers Care Wrapper Leaf Inspector Name Role Phone Keena Rosales APRN Primary Care Provider [phone] Reason for Visit * Diagnostic Test (Routine) - Closed Specialty Diagnoses / Procedures Referred By Alma ortega Referred To Contact Radiology Diagnoses Steatosis of liver Fatty (change of) liver, not elsewhere classified Procedures CT Abdomen wo Contrast CT Abdomen w Contrast CT Abdomen wo Contrast Keena Rosales APRN [address] [place] [address] [facility] [place] [address] Referral ID Status Reason Start Date Expiration Date V isits Requested Visits Authorized [id number] Closed Specialty Service Requested 03/05/2024 09/05/2025 1 1 Encounter Details Date Type Department Care Team (Latest Contact Info) Description 03/17/2024 9:17 AM EDT - 03/17/2024 11:59 PM EDT Hospital [place] [address] Keena Rosales APRN [address] [place] [address] Steatosis of liver; Fatty (change of) liver, not elsewhere classified Discharge Disposition: Home Social History Tobacco Use Types Packs/Day Years [...] health care facility (including now)? No 10/14/2022 [facility] IPV Inpatient [...] this encounter Medications at Time of Discharge Medication Sig Dispensed Refills Start Date End Date prazosin (Minipress) 1 mg capsule Take 3 mg by mouth nightly. 12/06/2023 insulin needles, disposable, (BD Ultra-Fine Short Pen Needle) 31 gauge x 5/16 NeedleIndications:Clas s 3 severe obesity with serious comorbidity and body mass index (BMI) of 60.0 to 69.9 in adult, unspecified obesity type Use 1 needle daily 100 each 3 01/26/2024 Victoza 3-Carlo 0.6 mg/0.1 mL (18 mg/3 mL) Pen Injector Has on hand, has NOT started yet 11/25/2023 calcium citrate (Calcitrate) 200 mg (950 mg) tablet Take 1 tablet by mouth daily. cyanocobalamin, Vitamin B-12, (Vitamin B-12) 1,000 mcg tablet Take 1,000 mcg by mouth daily. ferrous sulfate (FeroSul) 324 mg (65 mg iron) DR tablet Take 324 mg by mouth. Every 3 days cholecalciferoL (Vitamin D3) 400 unit tablet Take 400 Units by mouth daily. melatonin 5 mg tablet Take 5 mg by mouth daily as needed (for sleep). multivitamin (THERAGRAN) Tablet Take 1 tablet by mouth daily. busPIRone (Buspar) 10 mg tablet Take 10 mg by mouth daily. 05/17/2023 Acetylcysteine (NAC) 600 mg capsule TAKE TWO CAPSULES BY MOUTH EVERY MORNING WITH TWO ADDITIONAL CAPSULES IN THE AFTERNOON/EARLY EVENING NEEDED FOR MOOD acetaminophen (Tylenol) 325 mg Tablet Take 3 tablets by mouth every 6 hours as needed for Pain. 30 tablet 11/14/2019 LORazepam (Ativan) 0.5 mg Tablet Take 0.5 mg by mouth daily as needed. 09/12/2019 potassium chloride (KLOR-CON) 20 mEq Packet Take 20 mEq by mouth daily. 05/04/2024 omeprazole (PriLOSEC) [address] capsule Take 1 capsule by mouth Daily at Noon. 10/26/2023 05/04/2024 nystatin (MYCOSTATIN) 100,000 unit/gram PowderIndications:Inte rtrigo Apply topically 4 times daily. 60 g 11/18/2023 05/04/2024 propranoloL (Inderal) 10 mg Tablet Take 5 mg by mouth daily. 06/30/2022 05/04/2024 documented as of this encounter Plan of Treatment Upcoming Encounters Date Type Department Care Team (Late st Contact Info) Description 08/17/2024 11:00 AM EST [place] [phone] Lamar Alonzo MD [facility] [place] [address] documented as of this encounter Goals Goal Patient Goal Type Associated Problems Recent Progress Patient-Stated? Author Follow your diet plan as advised by your manager cath lab Courtney Owens RD Note: Images from the original note were not included. Nutrtion Goals: 04/25/23 TF Nutrition Goals: 03/28/23 TF Review and continue to work on the Eating Behaviors for success post gastric bypass Nutrition Goals updated today: 10/22/22 TF 1. Try Bolthouse dressing to reduce calories and increase in place [place] 2. Work towards reducing total calroeus gradually to aim for [id number] kcals (aim to reduce each meal by [...] Priority Date/Time Associated Diagnosis Comments CT ABDOMEN WO CONTRAST Routine 03/17/2024 10:18 AM EDT Steatosis of liver Fatty (change of) liver, not elsewhere classified documented in this encounter Results * CT Abdomen wo Contrast (03/17/2024 10:18 AM EDT) WORKSTATION ID [id number] [facility] RAD Anatomical Region Laterality Modality Abdomen Computed Tomogra phy Impressions 03/18/2024 3:01 AM EDT 1. ??Hepatomegaly with geographic areas of diffuse hepatic steatosis. 2. ??Stable indeterminate exophytic hyperdense left renal cystic lesion, incompletely characterized on this study. 3. ??Unchanged Bilobed fat-containing supraumbilical midline ventral hernia. Thank you for letting us participate in the care of this patient. ??If you are a health care provider and have any questions regarding this report, please contact the number below. ??For patients who have questions please contact the health complex care nurse that requested your imaging first. ? Electronically signed by: Bailey Araiza MD, [facility] ([phone]), at 03/18/2024 3:01 AM Narrative 03/18/2024 3:01 AM EDT EXAMINATION: CT ABDOMEN WO CONTRAST CLINICAL HISTORY: Steatosis of liver, fatty change of liver, not elsewhere classified K76.0, Fatty (change of) liver, not elsewhere classified - K76.0, Fatty (change of) liver, not elsewhere classified TECHNIQUE: Helical CT of the abdomen was performed. ?? COMPARISON: CT abdomen &pelvis, March 31, 2023 Right upper quadrant ultrasound, November 13, 2019 FINDINGS: The absence of intravenous contrast limits the evaluation of solid viscera and vasculature. Lower chest: Normal. Liver: Unchanged hepatomegaly with liver grossly stable at approximately 25 cm in craniocaudal dimension. There are diffuse geographic areas of low-attenuation compatible with hepatic steatosis. No leak focal lesions are evident within limits of this noncontrast study. Bile ducts: No intra-axial extrahepatic duct dilation. Gallbladder: Absent. Pancreas: Atrophic with mild fatty replacement. Spleen: Normal. Adrenals: Normal. Kidneys: Stable left interpolar exophytic hyperdense renal lesions, fluid attenuating but remains incompletely characterized on this noncontrast study. No renal calculi or hydronephrosis. Vasculature: No significant findings. Lymph nodes: No enlarged lymph nodes. Bowel: Changes of gastric bypass with normal appearing gastric and jejunal jejunal anastomosis. No abnormal bowel dilation, wall thickening or surrounding inflammation. Peritoneum: No free air or free fluid. Abdominal wall: Bilobed fat-containing supraumbilical midline ventral hernia. Osseous structures: Degenerative changes of the lower thoracic spine with flowing anterior marginal osteophytes. No acute osseous findings. Procedure Note Bailey Araiza MD - 03/18/2024 EXAMINATION: CT ABDOMEN WO CONTRAST CLINICAL HISTORY: Steatosis of liver, fatty change of liver, notelsewhere classified K76.0, Fatty (change of) liver, not elsewhere classified - K76.0, Fatty(change of) liver, not elsewhere classified TECHNIQUE: Helical CT of the abdomen was performed. COMPARISON: CT abdomen &pelvis, March 31, 2023 Right upper quadrant ultrasound, November 13, 2019 FINDINGS: The absence of intravenous contrast limits the evaluation ofsolid viscera and vasculature. Lower chest: Normal. Liver: Unchanged hepatomegaly with liver grossly stable at [id number] cm in craniocaudal dimension. There are diffuse geographic areas oflow-attenuation compatible with hepatic steatosis. No leak focal lesions are evidentwithin limits of this noncontrast study. Bile ducts: No intra-axial extrahepatic duct dilation. Gallbladder: Absent. Pancreas: Atrophic with mild fatty replacement. Spleen: Normal. Adrenals: Normal. Kidneys: Stable left interpolar exophytic hyperdense renal lesions,fluid attenuating but remains incompletely characterized on this noncontraststudy. No renal calculi or hydronephrosis. Vasculature: No significant findings. Lymph nodes: No enlarged lymph nodes. Bowel: Changes of gastric bypass with normal appearing gastric andjejunal jejunal anastomosis. No abnormal bowel dilation, wall thickening orsurrounding inflammation. Peritoneum: No free air or free fluid. Abdominal wall: Bilobed fat-containing supraumbilical midline ventralhernia. Osseous structures: Degenerative changes of the lower thoracic spinewith flowing anterior marginal osteophytes. No acute osseous findings. IMPRESSION 1. Hepatomegaly with geographic areas of diffuse hepatic steatosis. 2. Stable indeterminate exophytic hyperdense left renal cystic lesion, incompletely characterized on this study. 3. Unchanged Bilobed fat-containing supraumbilical midline ventralhernia. Thank you for letting us participate in the care of this patient. If youare a health care provider and have any questions regarding this report,please contact the number below. For patients who have questions please contactthe health complex care nurse that requested your imaging first. Electronically signed by: Bailey Araiza MD, [facility]([phone]), at 03/18/2024 3:01 AM Keena Rosales APRN IMG CT ORDERABLES documented in this encounter Visit Diagnoses Diagnosis Steatosis of liver Other chronic nonalcoholic liver disease Fatty (change of) liver, not elsewhere classified documented in this encounter Care Teams Wrapper Leaf Inspector Relationship Specialty Start Date End Date Keena Rosales APRN [address] [place] [address] PCP - General Family Medicine 11/04/21 documented as of this encounter
--- OUTSIDE RECORDS SUMMARY | 2024-07-13 14:54 | XMS_ITS | Encounter Summary ---
Author Organization [facility] Address [address] [place] [address] Care Team Providers Care Picture Hanger Name Role Phone Pipo Frazier PA-C Primary Care Provider [phone] [phone] Encounter Details Date Type Department Care Team (Late st Contact Info) Description 01/31/2020 Prep for Procedure [facility] General Surgery [address] [id number] Bola Chu MD [address] [place] [phone] Social History Tobacco Use Types Packs/Day Years [...] Info) Description 10/02/2024 14:45 EDT Office Visit [facility] Urology [address] [phone] Pipo Jane MD [address] [place] [address], [address] [place] [address] documented as of this encounter Visit Diagnoses Not on filedocumented in this encounter Care Teams Picture Hanger Relationship Specialty Start Date End Date Pipo Frazier PA-C PCP - General 10/05/19 10/21/21 documented as of this encounter
--- OUTSIDE RECORDS SUMMARY | 2024-07-13 14:54 | XMS_ITS | Encounter Summary ---
Author Organization [facility] Address [address] [place] [address] Care Team Providers Care Airline Reservationist Name Role Phone Pipo Frazier PA-C Primary Care Provider [phone] Encounter Details Date Type Department Care Team (Latest Contact Info) Description 12/17/2019 Travel Social History Tobacco Use Types Packs/Day [...] 8:11 EDT documented as of this encounter Plan of Treatment Upcoming Encounters Date Type Department Care Team (Late st Contact Info) Description 10/02/2024 14:45 EDT Office Visit [facility] Urology - [facility] [address] [place], [place] [address] Pipo Jane MD [address] [facility], [address] [place] [address] documented as of this encounter Visit Diagnoses Not on filedocumented in this encounter Care Teams Airline Reservationist Relationship Specialty Start Date End Date Pipo Frazier PA-C PCP - General 10/05/19 10/21/21 documented as of this encounter
--- OUTSIDE RECORDS SUMMARY | 2024-07-13 14:54 | XMS_ITS | Encounter Summary ---
Author Organization [facility] Address [address] [place] [address] Care Team Providers Care Global Product Manager Name Role Phone Pipo Frazier PA-C Primary Care Provider [phone] [phone] Reason for Referral * Radiology Services (Routine) - Closed Specialty Diagnoses / Procedures Referred By Contac t Referred To Contact Diagnoses Morbid obesity with BMI of 60.0-69.9, adult ([facility]) Procedures FL UGI AIR W Bola Reis MD Phone: tel: fax: Referral ID Status Reason Start Date Expiration Date Visits Re quested Visits Authorized [id number] Closed 12/17/2019 1 1 Reason for Visit * Radiology Services (Routine) - Closed Specialty Diagnoses / Procedures Referred By Contac t Referred To Contact Diagnoses Morbid obesity with BMI of 60.0-69.9, adult ([facility]) Procedures FL I AIR W Bola Reis MD Phone: tel: fax: Referral ID Status Reason Start Date Expiration Date Visits Re quested Visits Authorized [id number] Closed 12/17/2019 1 1 Encounter Details Date Type Department Care Team (Latest Contact Info) Description 12/26/2019 10:06 EDT - 12/26/2019 23:59 EDT Hospital Encounter [facility] Radiology Fluoroscopy - [facility] [address] [place], [place] [id number] Morbid obesity with BMI of 60.0-69.9, adult ([facility]) Discharge Disposition: Home or Self Care Social [...] 10:02 EDT documented as of this encounter Medications at [...] Info) Description 10/02/2024 14:45 EDT Office Visit [facility] Urology - [address] [address] Pipo Jane MD [address] [place] [address], [address] [place] [address] documented as of this encounter Procedures Procedure Name Priority Date/Time Associated Diagnosis Comments FL UGI AIR W LOGISTICS SUPERVISOR Routine 12/26/2019 11 :36 EDT Morbid obesity with BMI of 60.0-69.9, adult ([facility]) documented in this encounter Results * FL UGI AIR W LOGISTICS SUPERVISOR (12/26/2019 11:36 EDT) Anatomical Region Laterality Modality Body Radio Fluoroscop y 12/26/2019 13:0 1 EDT Impressions 12/26/2019 13:01 EDT Normal study. I have personally reviewed the images and the above interpretation and agree with the findings. Narrative 12/26/2019 13:01 EDT FL UGI AIR W LOGISTICS SUPERVISOR 12/26/2019 10:30 AM Symptoms: GERD. Obesity Technique: Single and double-contrast views of the thoracic esophagus, stomach, duodenal bulb and sweep were obtained. Comparison: None. Findings: Sales Planning Coordinator KUB demonstrates surgical clips in the right upper quadrant. Study shows a normally-distensible thoracic esophagus with normal-appearing mucosa. The stomach is normally distensible with normal-appearing mucosa. There is no evidence of gastroesophageal reflux on this study. The duodenal bulb and sweep are within normal limits. Procedure Note Manoj Peralta MD - 12/26/2019 FL UGI AIR W LOGISTICS SUPERVISOR 12/26/2019 10:30 AM Symptoms: GERD. Obesity Technique: Single and double-contrast views of the thoracic esophagus, stomach,duodenal bulb and sweep were obtained. Comparison: None. Findings: Sales Planning Coordinator KUB demonstrates surgical clips in the right [...] Morbid obesity with BMI of 60.0-69.9, adult ([facility]) Morbid obesity documented in this encounter Care Teams Global Product Manager Relationship Specialty Start Date End Date Pipo Frazier PA-C PCP - General 10/05/19 10/21/21 documented as of this encounter
--- OUTSIDE RECORDS SUMMARY | 2024-07-13 14:54 | XMS_ITS | Encounter Summary ---
Author Organization [facility] Address [facility] [place] [address] Care Team Providers Care Beveling Machine Operator Name Role Phone Yuniel Rosalesyn Maurice ORONA Primary Care Provider [phone] [phone] Encounter Details Date Type Department Care Team (Late st Contact Info) Description 01/25/2024 3:00 PM EDT Office [place] [phone] Lamar Alonzo MD [facility] [address] [facility] [address] Class 3 severe obesity with serious comorbidity and body mass index (BMI) of 60.0 to 69.9 in adult, unspecified obesity type (Primary Dx); Hypertriglyceridemia ; RUPERT (generalized anxiety disorder); Hypertension, unspecified type; SUDHA on CPAP; Anxiety Social History Tobacco Use Types Packs/Day Years [...] Sign Reading Time Taken Comments Blood Pressure 145/86 01/25/2024 2:37 PM EDT Pulse 70 01/25/2024 2:37 PM EDT Temperature - - Respiratory Rate - - Oxygen Saturation - - Inhaled Oxygen Concentration - - Weight 202.4 kg (446 lb 3.2 oz) 01/25/2024 2:37 PM EDT Height 180.3 cm (5' 10.98) 01/25/2024 2:37 PM E DT Body Mass Index 62.27 01/25/2024 2:37 PM EDT documented in this encounter Progress Notes * Lamar Alonzo MD - 01/25/2024 3:00 PM EDTSummary: 4th visit with [facility] Patient Name: René Wayne Date of : 1985 PCP: Keena Rosales APRN CHIEF COMPLAINT: F/u for treatment of WHO Class 3 / EOSS Stage 2 Obesity, defined by BMI at presentation, with complications: HTN, SUDHA on CPAP, anxiety, FLD, hyper TG. . This is Visit #4 [facility] visit for this 38 y.o. patient. 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 But still dealing with mobility issues. Nutrition/Recall: Low carb - protein and greens Drinking water with electrolyte powder. In terms of hunger/fullness/cravings, depends on the day. After surgery, could only eat 3-4 bites. Slowly able to eat more - some days can eat more (small salad and yogurt), some days can only eat 3-4 bites. Hunger never really went away, but its easier. No real cravings. AOM: Currently taking: None AOM Hx: Victoza 1.8 mg, Metformin 2000 mg, topiramate 50 mg Medication [...] Behavior: Portion control, Struggles to maintain change Activity: Advancing Barriers: []needs cardiac eval []injury/pain preventing activity right now Stress Management:has counselor Sleep: SUDHA - treated Self-monitoring: Food log Groups of interest: Discussion 01/26/24: Post RYGB, doing well, wt is slowing a little. Did not have relief of hunger but doing well. Will restart Victoza per PCP. [place] ordered. Labs ordered. Cont f/u. 08/25/2022 2:00 PM [facility] - ADULT Pre- Bariatric Surgery Activate Adult Biobank Activate VITAL SIGNS: Vitals: 01/25/24 1437 BP: 145/86 BP Location ([facility]): Right arm Patient Position: Sitting BP Cuff Sizes: Large Adult (32-43 cm) Pulse: 70 Weight: (!) 202.4 kg (446 lb 3.2 oz) Height: 180.3 cm (5' 10.98) Body mass index is 62.27 kg/m??. PHYSICAL EXAM: Gen: Alert and appropriate, [...] 105 08/23/2022 Lab Results Component Value Date [id number] 11/18/2023 25-OH Vit D Total (ng/mL) Date Value Status 11/18/2023 34 Final No results found for: URICACID ASSESSMENT AND PLAN René Wayne was seen in follow up today for [...] obesity treatment:: Anxiety and SUDHA Referrals pending: individual Pyschology, embedded, bariatric AOM: Victoza, metformin, topiramate Diagnoses and all orders for this visit: Class 3 severe obesity with serious comorbidity and body mass index (BMI) of 60.0 to 69.9 in adult,unspecified obesity type - insulin needles, disposable, (BD Ultra-Fine Short Pen Needle) 31 gauge x 5/16 Needle; Use 1 needle daily Hypertriglyceridemia RUPERT (generalized anxiety disorder) Hypertension, unspecified type SUDHA on CPAP Anxiety Orders Placed This Encounter Procedures Ferritin Glucose, fasting Hemoglobin A1c Insulin, total Lipid Panel (Reflex Direct LDL) TSH Return in about 3 months (around 04/26/2024) for With me. 1 min chart review 25 min [id number] visit 5 min documentation time - including same day cc with BS I spent time above today reviewing labs, writing prescriptions, documenting visit, examining the patient, arranging other specialty care, counseling in diet and/or exercise and discussion of treatment options in the care of obesity. documented in this encounter Plan of Treatment Upcoming Encounters Date Type Department Care Team (Late st Contact Info) Description 08/17/2024 11:00 AM EST Office [place] [address] Lamar Alonzo MD [facility] [address] [facility] [address] Scheduled Orders Name Type Priority Associated Diagnoses Orde r Schedule Ferritin Lab Routine Class 3 severe obesity with serious comorbidity and body mass index (BMI) of 60.0 to 69.9 in adult, unspecified obesity type Expected: 01/26/2024 (Approximate), Expires: 01/25/2025 Glucose Lab Routine Class 3 severe obesity with serious comorbidity and body mass index (BMI) of 60.0 to 69.9 in adult, unspecified obesity type Expected: 01/26/2024 (Approximate), Expires: 01/25/2025 Hemoglobin A1c Lab Routine Class 3 severe obesity with serious comorbidity and body mass index (BMI) of 60.0 to 69.9 in adult, unspecified obesity type Expected: 01/26/2024 (Approximate), Expires: 01/25/2025 Insulin, total Lab Routine Class 3 severe obesity with serious comorbidity and body mass index (BMI) of 60.0 to 69.9 in adult, unspecified obesity type Expected: 01/26/2024 (Approximate), Expires: 01/25/2025 Lipid Panel (Reflex Direct LDL) Lab Routine Class 3 severe obesity with serious comorbidity and body mass index (BMI) of 60.0 to 69.9 in adult, unspecified obesity type Hypertriglyceridemia Expected: 01/26/2024 (Approximate), Expires: 01/25/2025 TSH Lab Routine Class 3 severe obesity with serious comorbidity and body mass index (BMI) of 60.0 to 69.9 in adult, unspecified obesity type RUPERT (generalized anxiety disorder) Expected: 01/26/2024 (Approximate), Expires: 01/25/2025 documented as of this encounter Goals Goal Patient Goal Type Associated Problems Recent Progress Patient-Stated? Author Follow your diet plan as advised by your national account manager Courtney Owens I, RD Note: Images from the original note were not included. Nutrtion Goals: 04/25/23 TF Nutrition Goals: 03/28/23 TF Review and continue to work on the Eating Behaviors for success post gastric bypass Nutrition Goals updated today: 10/22/22 TF 1. Try Bolthouse dressing to reduce calories and increase in place Ranch 2. Work towards reducing total calroeus gradually to aim for 1671-0616 kcals (aim to reduce each meal by [...] apnea (adult) (pediatric) Anxiety Anxiety state, unspecified documented in this encounter Care Teams Beveling Machine Operator Relationship Specialty Start Date End Date Keena Rosales APRN [address] [place] [address] PCP - General Family Medicine 11/04/21 documented as of this encounter
--- OUTSIDE RECORDS SUMMARY | 2024-07-13 14:54 | XMS_ITS | Encounter Summary ---
Author Organization [facility] Address [facility] [place] [address] Care Team Providers Care Ballistics Professor Name Role Phone Keena Rosales APRN Primary Care Provider [phone] [phone] Encounter Details Date Type Department Care Team (Latest Contact Info) Description 10/21/2023 Travel Social History Tobacco Use Types Packs/Day [...] AM EST Office [place] [address] Lamar Alonzo MD [facility] DR [facility] [address] documented as of this encounter Goals Goal Patient Goal Type Associated Problems Recent Progress Patient-Stated? Author Follow your diet plan as advised by your reflexologist Courtney Owens RD Note: Images from the original note were not included. Nutrtion Goals: 04/25/23 TF Nutrition Goals: 03/28/23 TF Review and continue to work on the Eating Behaviors for success post gastric bypass Nutrition Goals updated today: 10/22/22 TF 1. Try Bolthouse dressing to reduce calories and increase in place Ranch 2. Work towards reducing total calroeus gradually to aim for 7522-0834 kcals (aim to reduce each meal by [...] on filedocumented in this encounter Care Teams Ballistics Professor Relationship Specialty Start Date End Date Keena Rosales APRN [address] [place] [address] PCP - General Family Medicine 11/04/21 documented as of this encounter
--- OUTSIDE RECORDS SUMMARY | 2024-07-13 14:54 | XMS_ITS | Encounter Summary ---
Author Organization [facility] Address [address] [place] [address] Care Team Providers Care Lock Setter Name Role Phone Pipo Frazier PA-C Primary Care Provider [phone] [phone] Reason for Visit * Reason Comments Obesity Psych Aleshia. Encounter Details Date Type Department Care Team (Late st Contact Info) Description 10/09/2019 10:00 EDT Telemedicine [facility] Bariatric Surgery [address] [phone] Romina Knight, PhD [address] [place] [address] Panic disorder without agoraphobia with [...] Progress Notes * Romina Knight, PhD - 10/09/2019 1000 EDT Bariatric Surgery Program Behavioral Health Evaluation Patients Name: René Wayne Date of Service: 10/10/2019 Type of Service: PSYCHIATRIC DX INTERVIEW EXAM Length of Session: 45 minutes Primary Care Provider: Pipo Frazier Referred By: Dr. Frazier Limits of Confidentiality Reviewed: Yes Objective Measures Administered: BDI-II TELEMEDICINE VIDEO VISIT Today's visit was provided through telemedicine video conferencing: The location of the patient : Home The location of the provider:Home Office PURPOSE: To identify psychosocial contraindications to Bariatric Surgery and to make recommendations aimed at facilitating the best possible outcome for the patient. HISTORY OF PRESENT ILLNESS: A. Current Weight: 440 pounds B. Highest Adult Weight: 480 pounds C. Lowest Adult Weight: 250 pounds D. Reasons for Seeking Surgery: Pt reported being unsuccessful in maintaining weight loss in the past E. Expectations of Surgery: Pt expects improved mobility, Pt expects to be more physically active, Pt expects improved energy level and Pt expects improved self-confidence F. Eating Behaviors: comfort eating, large portion sizes and binge eating G. Dieting History: 1. Pt reported numerous attempts to diet in the past 2. Has anything worked well? Yes What was it that made that method helpful? Atkins 3. What factors led to regaining weight? Unable to maintain appropriate portions for weight loss PERTINENT MEDICAL HISTORY: No past medical history on file. CURRENT MEDICATIONS: No current outpatient medications on file. ADHERENCE TO POST-SURGICAL REGIMEN: 1. How will it be for you to change your eating patterns? Pt understands that in order to be successful he needs to make modifications to his portions. However, he stated that he needs help in developing strategies for overcoming a feeling of not being full and eating due to boredome. Do you worry that you will have feelings of loss or deprivation? No 2. If you have had trouble limiting your eating in the past, what will make it different if you have surgery? Motivation to improve health and quality of life 3. If you have coped with emotions in the past by eating, what other coping strategies will you useif you have surgery? Reading book, playing game, socializing 4. How will your living environment affect your attempts to eat healthfully? Pt's solution is to cook separately from others in the household. 5. Will your daily schedule of work or other responsibilities allow you to eat frequently and healthfully and to engage in frequent physical activity? Pt's work schedule interfers with planning. He understands that he will have to spend more time doing advanced planning. RELATIONSHIPS / SUPPORT SYSTEM: 1. How do your friends and family feel about your desire to have bariatric surgery? They are supportive 2. Who will be available to help care for you immediately after surgery? girlfriend 3. If you are successful in losing weight, how might this affect your relationships? More active with family 4. Is there anyone who might feel unhappy or uncomfortable with your weight loss? No CURRENT PSYCHIATRIC HISTORY: Current Mood Problems: Pt has a history of panic disorder. In the past, he was agoraphobic, but overcame that. He described his anxiety as manageable but has a panic attack every couple of weeks. He uses deep breathing and self-talk to manage panic attacks. His fears center around physical cues which he interprets as a sign of a heart attack. He is also depressed about the functional limitations associated with his weight. Suicidal Ideation/Attempts: none Homicidal Ideation: No homicidal thoughts Current Psychiatric Treatment: medications (venlafaxine and lorazapem for anxiety) Significant Stressors in Past Year: Multiple family deaths PAST PSYCHIATRIC HISTORY: Previous Psychiatric Treatment: Therapy, Outpatient - for anxiety. Therapy ended in 2018. Pt statedthat therapist didn't feel that he had anything else to offer. History of Psychiatric Hospitalization: No History of Depression: No History of Anxiety: Pt reported a history of anxiety. Pt described: panic disorder with agoraphobia. Stated that he went to the ED every day for 3 months, fearing that he was having a heart attack.. Past Suicidal Ideation/Attempts: No Past use of Psychopharmaceutical Medications: Various psychotropics FAMILY PSYCHIATRIC HISTORY: Family History of Psychiatric Problems: No Family History of Substance Abuse: No SUBSTANCE USE HISTORY: Current caffeine use: rarely Number of caffeinated drinks consumed on average per day: 0 Number of caffeinated drinks consumed on average per week: 0 Current alcohol use: Pt reported rare consumption of alcohol. Number of alcoholic drinks consumed on average per day: 0 Number of alcoholic drinks consumed on average per month: 1-2 Number of alcohol drinks typically consumed in one sittin-5 shots (pt was informed of the effects of alcohol following bariatric surgery. History of alcohol use: Pt denied any history of problems with alcohol use. Current use of recreational drugs: Never History of recreational drug use: Never Current smoking habit: no History of smoking habit: no PAST FAMILY AND SOCIAL HISTORY: Marital Status: significant other Number of Children: 0 Patient Currently Lives: with significant other and brother Patient's Mother: Living Patient's Father: Siblings: brothers: 3, sisters: 2, : 1 Social Support Level: adequate History of Traumatic Events: None History of Physical/Sexual Abuse: Pt denied experiencing any physical or sexual abuse. 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 Affect: normal affect Attention and Concentration: impaired - but has adaptations Sleep: Uses c-pap but still has non-restorative sleep Appetite: increased appetite Insight: fair Judgment: good Cognitive Ability: good ASSESSMENT: AXIS I: Panic Disorder without agoraphobia with moderate panic attacks (F41.0) AXIS II: none AXIS III: See medical record AXIS IV: health and losses AXIS V: GAF equals 64 Readiness for Surgery: A. This patient appears to be psychologically capable of cooperating with and benefiting from Bariatric surgery. Given his history of panic disorder, he may need additional behavioral support while participating in the Bariatric program. B. This patient is not an appropriate candidate for bariatric surgery due to the following psychosocial contraindications: N/A C. The following information is needed prior to determining the patient's appropriateness for surgery: none PLAN: Pt will be scheduled with the Bariatric surgeon for a High Risk evaluation. Individual psychological follow-up at the Bariatric Program is not indicated at this time. Romina Knight, PhD 10/10/2019 10:21 Licensed Psychologist-Doctorate documented in this encounter Plan of Treatment Upcoming Encounters Date Type Department Care Team (Late st Contact Info) Description 10/02/2024 14:45 EDT Office Visit [facility] Urology - [address] [address] Pipo Jane MD [address] [place] [address], [address] [place] [id number] documented as of this encounter Visit Diagnoses Diagnosis Panic disorder without agoraphobia with moderate panic attacks- Primary Panic disorder without agoraphobia documented in this encounter Care Teams Lock Setter Relationship Specialty Start Date End Date Pipo Frazier PA-C PCP - General 10/05/19 10/21/21 documented as of this encounter
--- OUTSIDE RECORDS SUMMARY | 2024-07-13 14:54 | XMS_ITS | Encounter Summary ---
Author Organization [facility] [place] [address] Care Team Providers Care Tube Drawing Supervisor Name Role Phone Keena Rosales APRN Primary Care Provider [phone] Encounter Details Date Type Department Care Team (Late st Contact Info) Description 05/16/2024 Telephone Weight Center at [facility] [place] [phone] Nelly Hernandez RN Social History Tobacco Use Types Packs/Day [...] place to sleep or slept in a skilled nursing (including now)? No 10/14/2022 IPV Inpatient Questions [...] encounter Miscellaneous Notes * Telephone Encounter - Nelly Hernandez RN - 05/16/2024 3:07 PM EST Called and spoke with lab. Asked that they fax us his lab results. documented in this encounter Plan of Treatment Upcoming Encounters Date Type Department Care Team (Late st Contact Info) Description 08/17/2024 11:00 AM EST Office [place] [address] Lamar Alonzo MD [facility] [address] [facility] [place] [address] documented as of this encounter Goals Goal Patient Goal Type Associated Problems Recent Progress Patient-Stated? Author Follow your diet plan as advised by your animal trainer supervisor Courtney Oewns RD Note: Images from the original note were not included. Nutrtion Goals: 04/25/23 TF Nutrition Goals: 03/28/23 TF Review and continue to work on the Eating Behaviors for success post gastric bypass Nutrition Goals updated today: 10/22/22 TF 1. Try Bolthouse dressing to reduce calories and increase in place Ranch 2. Work towards reducing total calroeus gradually to aim for 5249-7629 kcals (aim to reduce each meal by [...] on filedocumented in this encounter Care Teams Tube Drawing Supervisor Relationship Specialty Start Date End Date Keena Rosales APRN [address] [place] [address] PCP - General Family Medicine 11/04/21 documented as of this encounter
--- OUTSIDE RECORDS SUMMARY | 2024-07-13 14:54 | XMS_ITS | Encounter Summary ---
Author Organization [facility] Address [address] [place] [address] Care Team Providers Care Stucco Mason Name Role Phone Unavailable Primary Care Provider Unavailabl e Reason for Visit * Reason Comments Obesity High Risk - Online i ntro class Encounter Details Date Type Department Care Team (Late st Contact Info) Description 09/10/2019 9:00 EST Education [facility] [address] [place] [address] [place] [address] Obesity, unspecified classification, unspecified obesity type, unspecified whether serious comorbidity present (Primary Dx) Social History Tobacco Use Types Packs/Day Years Used Date Smoking Tobacco: Never Assessed Sex and Gender Information Value Date Recorded Sex Assigned at Not on file Legal Sex Male 12:14 EST Gender Identity Male 10/05/2019 14:05 EDT Sexual Orientation Not on file documented as of this encounter Progress Notes * Chioma Daniel MA - 09/10/2019 0900 EST Marquezdarwin Wayne 1985 arrived for the Metabolic and Bariatric Surgery Program Online Introductory Class. All program requirements, surgical procedures including risks and benefits, and insurance approval process reviewed in detail. Power point presentation, verbal instruction, and handouts provided during the class. At the end ofthe class the patient is asked to complete the second part of the health questionnaire and are provided food logs and insurance benefit verification form to complete. Patient is advised when they come for the psychological evaluation they must bring the completed food diary as well as the insurancebenefit verification form. René Wayne was called and offered an appointment with Romina Knight the program psychologist which is the next step in the Metabolic and Bariatric Surgery Program. documented in this encounter Plan of Treatment Upcoming Encounters Date Type Department Care Team (Late st Contact Info) Description 10/02/2024 14:45 EDT Office Visit [facility] - [address] [address] Pipo Jane MD [address] [place] [address], [address] [place] [phone] documented as of this encounter Visit Diagnoses Diagnosis Obesity, unspecified classification, unspecified obesity type, unspecified whether serious comorbidity present- Primary documented in this encounter
--- OUTSIDE RECORDS SUMMARY | 2024-07-13 14:55 | XMS_ITS | Encounter Summary ---
Author Organization [facility] [place] [address] Care Team Providers Care Medical Office Supervisor Name Role Phone Yuniel Rosalesyn Maurice ORONA Primary Care Provider [phone] Encounter Details Date Type Department Care Team (Late st Contact Info) Description 08/15/2023 Telephone General Surgery at [facility] [place] [phone] Bette Villegas RN Social History Tobacco Use Types Packs/Day [...] place to sleep or slept in a jail (including now)? No 10/14/2022 DH IPV Inpatient [...] encounter Miscellaneous Notes * Telephone Encounter - Bette Villegas RN - 08/15/2023 12:59 PM EST Received VM on nurses line from Rahul stating that he has started having dizziness when he stands up and thinks its because of his propranolol. René is s/p: Operations and Procedures: Procedure(s): @LAPAROSCOPIC GASTROPLASTY W/ LAUREN-EN-Y CONSTRUCTION (WRVU 29.4) EGD, UPPER GI ENDOSCOPY (WRVU 2.09) Surgeons: Surgeon(s) and Role: * Terri Garcia MD - Primary * Jacob Gupta MD - Fellow - Assisting History of Present Illness: René Wayne is a 37 y.o. male who has been through our Bariatric Surgery Program and has been found eligible for obesity surgery based on NIH criteria. he has gone through the required number of support group meetings and is very familiar with the procedure and also the risks and benefits. his pre-operative Body mass index is 71.54 kg/m??. with related comorbidities of SUDHA (on BiPAP), chronic . he presents for bariatric surgery. Hospital Course: René Wayne is a 37 y.o. male who was admitted on 07/27/2023 postoperatively after a Laparoscopic Lauren en Y Gastric Bypass. Operative course was uneventful, please see operativenote for further detail. On POD#1 his diet was advanced from stage 1 to stage 2, which was tolerated well. he received subcutaneous Lovenox for DVT prophylaxis as well as Tylenol, Toradol, oxycodone,and IV Dilaudid for pain control. he was changed to oral pain medications and IV analgesics were discontinued on POD#1. he did not have catheter and was voiding without difficulty for the duration of his admission. Prior to discharge on 07/28/23 or hospital day 1, patient's pain was well controlled with oral painmedications, he was voiding without difficulty, wounds were intact and healing appropriately, and he was tolerating a Gastric Bypass diet Stage II-Full. Vitals were within normal limits and he was determined medically ready for discharge to home. Attempted to reach patient, left VM with callback number but likely to defer to PCP for medication management as long as he is well hydrated. documented in this encounter Plan of Treatment Upcoming Encounters Date Type Department Care Team (Late st Contact Info) Description 08/17/2024 11:00 AM EST [place] [phone] Lamar Alonzo MD [facility] DR [facility] [place] [address] documented as of this encounter Goals Goal Patient Goal Type Associated Problems Recent Progress Patient-Stated? Author Follow your diet plan as advised by your athletic equipment manager Corutney Owens RD Note: Images from the original note were not included. Nutrtion Goals: 04/25/23 TF Nutrition Goals: 03/28/23 TF Review and continue to work on the Eating Behaviors for success post gastric bypass Nutrition Goals updated today: 10/22/22 TF 1. Try Bolthouse dressing to reduce calories and increase in place Ranch 2. Work towards reducing total calroeus gradually to aim for 1212-1954 kcals (aim to reduce each meal by [...] on filedocumented in this encounter Care Teams Medical Office Supervisor Relationship Specialty Start Date End Date Keena Rosales APRN [address] [place] [address] PCP - General Family Medicine 11/04/21 documented as of this encounter
--- OUTSIDE RECORDS SUMMARY | 2024-07-13 14:55 | XMS_ITS | Encounter Summary ---
Author Organization [facility] [place] [address] Care Team Providers Care Spiritual Counselor Name Role Phone Bobby Keenapatrick Richards APRN Primary Care Provider [phone] Encounter Details Date Type Department Care Team (Late st Contact Info) Description 07/06/2023 3:30 PM EST Office [place] [address] Natalia Singh APRN [facility] [place] [address] Terri Logan, DANTE Encounter for pre-bariatric surgery counseling and education Social History Tobacco Use Types Packs/Day Years Used Date Smoking Tobacco: Former Cigarettes Smokeless Tobacco: Never Comments:Rare cigarette in h [employer] [employer] school Overall Financial Resource Strain (CARDIA) Ans[place] r [...] place to sleep or slept in a nursing home (including now)? No 10/14/2022 Sex and Gender Information Value Date Recorded Sex Assigned at Not on file Gender Identity Not on file Sexual Orientation Not on file documented as of this encounter Progress Notes * Natalia Singh, TEST DATA DEVELOPER - 07/06/2023 3:30 PM EST BARIATRIC SURGERY PROGRAM [place], [place] [id number] Reason for visit: [facility] for up coming bariatric surgery René attended a comprehensive group pre-operative class today, which included discussion of pre and post operative instructions included in the [facility] Education Handbook.The nutrition component of the class was taught by the BSP RD. Patient completed health update form. No new medical issues/ED visit. Medications/allergies are reviewed, otherwise today's visit was group visit. Surgery info: Patient is scheduled for laparoscopic Juan Jose-en-Y gastric bypass on 07/27/[address] Garcia. Pre-Bariatric Surgery Obesity related medical issues: Problem Baseline issue if checked Comments Diabetes/prediabetes/insulin resistance [] Taking Metformin, victoza and topirimate for weight loss. Metabolic syndrome or PCOS [] HTN [x] Taking propranolol. GERD [] Rare Tums (less than once a month), never Rx. Hyperlipidemia [x] Txing with lifestyle. SUDHA [x] Using BiPAP, 100% compliance September, Musculoskeletal issues [x] Chronic back and knee pain. Liver Disease [x] Hepatomegaly. Other [x] -Hx TIA (temporary unilateral vision loss 2021) ED workout didn't determine cause ([facility]). -Hx alcohol misuse Post Bariatric Surgery Medications: Extended VTE prophylaxis post surgery Indicated, to be started at discharge. Ursodiol gallstone prophylaxis Not indicated, s/p cholecystectomy. PPI ulcer prophylaxis Indicated, to be prescribed at discharge. Contraception NA WT (lbs) BMI HT Highest wt Initial Pre-op visit 05/12/23 491 68.7 Post-op WT (lbs) BMI %EBW lost Preop labs:labs completed. Prescriptions provided at today's visit: none. Bariatric Surgery Program Pathway and review of status with the requirements of the Bariatric Surgery Program 1. Education: Pt previously attended a Introduction to the [facility] seminar,a two hour meeting that provides a program overview as well as expectations. The [facility] Educational seminar requirement has been met. The [facility] Educational Handbook was providedat visit #1. 2. Pre-operative programmatic evaluations have been done, as noted in previous pathway review. 3. Bariatric Surgery Program evaluations with the surgeon and dietitian have taken place. Johnathenhas been approved to proceed with surgery by surgeon. 6. Surgical consultation has taken place Next steps in pathway: During hospitalization for bariatric surgery, a standard bariatric surgery order set is followed. Routine post-operative follow up with labwork is done at months 1,4,12 and 24, yearly thereafter, and PRN. High risk patients are followed more frequently. Some of the topics reviewed during group discussion today included: day of surgery and post-op routine care/ locations: Admissions/SDP/PACU/ [place] units medications that increase the risk of bleeding including NSAIDs and anticoagulants to be avoided per guidelines pre and post-operatively DVT/VTE prevention and signs of DVT/PE. Inpatient management for VTE prevention: venodynes, ambulation, Enoxaparin 40 units BID during inpatient stay. Indications for extended Enoxaparin 10 days post discharge: A. patients with BMI >60 or prior VTE OR B. 2 or more of the following: age >50, BMI >50, male gender, sleep apnea, varicose veins, venous insufficiency, history of oral contraceptive or hormone or post-menopausal hormone replacement use within 30 days of surgery, and recent smoking guidelines for patients treated with oral anticoagulants per [facility] diabetes and hypertension monitoring during pre-op diet and post-operatively. Diuretic therapy is held to avoid risk of dehydration unless patient is symptomatic. signs and symptoms of infection as well as emergency signs and symptoms were reviewed common post-operative complaints management of sleep apnea during hospitalization and post operatively. The importance of post-operative follow-up with Sleep Center after weight loss was stressed. recommendations for psychiatric medications: should continue uninterrupted after surgery activity post surgery/ return to work recommendations routine BSP post-operative follow-up: 3 weeks. 4 months, 12 months and yearly for LIFE routine Primary Care post-operative follow up: at 10-14 days after surgery to monitor chronic health problems such as diabetes and hypertension, since the requirement for antihypertensive and diabetic medications may decrease or be discontinued Patient advised to contact our office if they develop COVID sx or test positive for COVID. Discussed increased risk of respiratory complications s/p COVID infection. A preliminary copy of the discharge instructions was provided, which is also available in the patient handbook. René was given the opportunity to ask questions, and all questions were answered. Time spent in counselin minutes documented in this encounter Plan of Treatment Upcoming Encounters Date Type Department Care Team (Late st Contact Info) Description 08/17/2024 11:00 AM EST [place] [address] Lamar Alonzo MD [facility] DR [facility] [address] documented as of this encounter Goals Goal Patient Goal Type Associated Problems Recent Progress Patient-Stated? Author Follow your diet plan as advised by your barmaid Courtney Owens RD Note: Images from the original note were not included. Nutrtion Goals: 04/25/23 TF Nutrition Goals: 03/28/23 TF Review and continue to work on the Eating Behaviors for success post gastric bypass Nutrition Goals updated today: 10/22/22 TF 1. Try Bolthouse dressing to reduce calories and increase in place [place] 2. Work towards reducing total calroeus gradually to aim for 6354-0478 kcals (aim to reduce each meal by [...] this encounter Visit Diagnoses Diagnosis Encounter for pre-bariatric surgery counseling and education documented in this encounter Care Teams Spiritual Counselor Relationship Specialty Start Date End Date Keena Rosales APRN [address] [place] [address] PCP - General Family Medicine 11/04/21 documented as of this encounter
--- OUTSIDE RECORDS SUMMARY | 2024-07-13 14:55 | XMS_ITS | Encounter Summary ---
Author Organization [facility] Address [facility] [place] [address] Care Team Providers Care Director Of Valuation Name Role Phone Bobby Keenapatrick Richards APRN Primary Care Provider [phone] Reason for Visit * Reason Comments Establish Care Encounter Details Date Type Department Care Team (Late st Contact Info) Description 05/12/2023 9:00 AM EDT Office [place] [address] Stacie Garcia MD [facility] [place] [address] Natalia Singh APRN [facility] [place] [address] Nelly Slaughter, [facility] [place] [address] Pre-op evaluation; Obesity, unspecified classification, unspecified obesity type, unspecified whether serious comorbidity present Social History Tobacco Use Types Packs/Day Years Used Date Smoking Tobacco: Former Cigarettes Smokeless Tobacco: Never Comments:Rare cigarette in h igh school Overall Financial Resource Strain (CARDIA) Answe [...] place to sleep or slept in a fdc (including now)? No 10/14/2022 Sex and Gender Information Value Date Recorded Sex Assigned at Not on file Gender Identity Not on file Sexual Orientation Not on file documented as of this encounter Last Filed Vital Signs Vital Sign Reading Time Taken Comments Blood Pressure 148/86 05/12/2023 8:40 AM EDT Pulse 67 05/12/2023 8:40 AM EDT Temperature - - Respiratory Rate - - Oxygen Saturation 99% 05/12/2023 8:40 AM EDT Inhaled Oxygen Concentration - - Weight 222.7 kg (491 lb) 05/12/2023 8:40 AM EDT Height 180 cm (5' 10.87) 05/12/2023 8:40 AM EDT Body Mass Index 68.74 05/12/2023 8:40 AM EDT documented in this encounter Progress Notes * Nelly Slaughter, RD - 05/12/2023 9:00 AM EDT Bariatric Surgery Program Initial Nutrition Assessment Laceyavel Wayne is a 37 y.o. male being seen today for a preoperative evaluation in anticipation of metabolic-bariatric surgery. SUBJECTIVE: Interest in bariatric surgery: Thought about surgery for quite a few years. Put it off due to fear of surgery. Suffers from panic attacks/anxiety. Weight is at a point he needs to do something. Decided to look into bariatric surgery. Initially started at [facility] Bariatric Surgery Program in 2019 (19 visits there) and was unable to meet the weight loss requirement so decided to look into other programs. Research: [x] Reading (Internet, books, etc.) [x] Talking to people who have had weight loss surgery- petr had surgery last year. 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 Girlfriend, Cherelle. Lives with SO. Social support: Cherelle, Dad, boss (Cherelle's brother) Hobbies: reading, stained glass, video games, bike riding, swimming Medical Hx: Class III obesity, HTN, SUDHA on CPAP, anxiety, FLD, hyper TG, hx vitamin d deficiency Overweight/obese since age: 3rd grade (250#) - the biggest kid in my class. In HS, about 350 lbs - Atkins in [place] year, lost 150 lbs. Weight yo-yoed since then Highest weight: 530# at age 35 Lowest weight: 380# in the past 10 years Dieting History: Type of Diet Wt Lost (lbs.) Wt. Regain (lbs.) Dates Duration Comments [facility] Lamar Umanzor MD and Courtney Kennedy RD 2022 10 visits 08/25/22, 09/03/22, 09/24/22, 10/22/22, 02/16/23, 03/28/23, 04/22/23, 04/25/23 Diet counseling with [facility] Up/down- overall stable [id number] ~2 yrs 19 visits Atkins/low Carb 100 100+ 2003 2 years Very strict low carb diet Atkins/Low Carb 40 40 2013 1 year Low carb 50 50 2017 3 years Low carb 20 20 2020 1 year Vegan 40 2020 ongoing History of medications to lose weight: victoza, torpiramate, metformin. Wellbutrin - worsened anxiety. OTC medications (I.e hydroxycut, apple cider vinegar) over the years. History of disordered eating behaviors such as binge eating/self-induced vomiting/laxative abuse/night eating syndrome: + binge eating- could keep eating, eating, eating, never full. Has to tell himself to stop. Last time that happened was last Thanksgiving (2021). This year plans to do a small meal. Not going out with family. Contributing Factors to Obesity: [x] Family history of obesity-everyone is on the bigger side [] Medications [] [x] Hx Binge Eating / Eating disorder [x] Large portion sizes - never feels full; mom encouraged seconds at meals [x] Fast eater [] Nighttime eating [x] Emotional eating- comfort eating, boredom [x] Mindless eating [] Choosing high calorie foods [] Preference for concentrated sweets [] Snacking [] Grazing [] Meal skipping [] Physical Inactivity Food Allergies/Intolerances/Preference: [] Gluten [] Lactose [x] None Diarrhea/Constipation: Occ loose stools- may be medication inducted. BM daily. Recent Changes in Dietary/Lifestyle Habits: [] Smaller portions [] 3 meals per day [x] Eating slower [] More fruits, vegetables, and whole grains [] Having protein at all meals, eating protein first [] Decreasing carbohydrates [] Lower calorie cooking methods (baking, broiling, grilling, etc.) [x] Nutrition Counseling with MD and RD [] No longer buying tempting foods from grocery store [x] Not drinking with meals, sipping fluids throughout the day [x] Cutting out carbonation- still working on this [] Cutting out concentrated sweets/ decreasing added sugar [] Increased physical activity Current Intake: Tracking Intake: [employer] yasmeen- tracks most day. Looks at calories and carbs. Aims to stay [id number] calories, under 30 carbs per day. Who does meal planning, shopping and cooking at home? [employer] does all 3. Economic and/or time limitations: None. Dental Concerns: None. Reported intake: fasting 2 of 7 days. - has mostly water, unsweetened tea. Still feels hungry all the time- keeping busy and sticking to a schedule helps manage hunger. Breakfast Scrambled eggs (3), cheddar cheese, low carb keto yogurt, almond milk Snack Lunch Salad, cheese, buffalo chicken, regular ranch, tomatoes, onions (homemade) Snack Supper 2 turkey burgers (no bun), chandler, lettuce, onion, cottage cheese, broccoli Snacks Beverages: almond milk, seltzer (can), 4 bottles water, 2 glasses unsweetened Kranthi Aid. Generally no caffeine. ETOH: <5 drinks/year. Tobacco: None. Casual use in HS but none outside of that. How often meals eaten away from home: Less than monthly. 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 Enjoys kayaking and biking (15 minutes) in the summer. Occ uses TM. Psychological Consultation: [facility]. Evaluation performed by Nilda Gillis, PhD on 11/18/22, 03/01/23, 04/26/23. Participates in ongoing counseling (monthly) is prepared to increase visits if needed after surgery Hx abuse - none.; Hx Hospitalizations- none. Per chart review: panic disorder with agoraphobia. Stated that he went to the ED every day for 3 months, fearing that he was having a heart attack.. - Per interview: pt reports strong family hx heartdisease, dad had first ARREAGA in his 30s. Multiple relatives on his dad's side have heart disease. His dad set in his head he was going to from heart disease. During this period of time he was not consistently on medication for his anxiety. Couldn't eat, didn't do anything except go to the hospital. Happened in 2017. Understands his anxiety will likely increase in the perioperative period- plans to use research, counseling, and medication to manage. Vision at 2 years post-op: I just [...] a barrier. Isuffer from massive anxiety . Today he states his QOL outweighs fear/anxiety of having surgery. OBJECTIVE: Weight History: Date Weight (lbs) HT BMI Comments 520# Highest Weight 08/25/22 484# Initial program weight 05/12/23 491# 71 68.9 1st pre-op visit [facility] % Surgery 3 weeks post-op 4 months post-op [place] Body Weight (based on BMI of 25): 179# 30-70% Excess Weight Loss: 273-398#; 50% Excess Weight Loss: 335# SUMMARY: René Wayne has been referred for nutrition evaluation and diet instruction in anticipation of bariatric surgery. 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 Predicted weight loss with surgery is an estimated 30-70% of excess body weight. Discussed weight loss goals. Emphasized importance of nonscale victories and overall improvement in health. Advised ptthat bariatric surgery is a tool, not a solution; and ultimately, weight loss will be achieved through proper eating and exercise habits. He showed good understanding of the concepts discussed. Pt with BMI >60 and has not met 20# weight loss goal. Pt was advised Dr. Garcia will let him know if any weight loss is required prior to surgery. NUTRITION DIAGNOSIS: Obesity related to metabolic, genetic, and environmental factors as evidenced by BMI of 68.9. PLAN: Patient to practice post-op GB diet recommendations prior to surgery to support post-op success andlong-term weight loss: Eat 3 meals daily, spaced about 4-6 hours apart. Take your time when eating meals, at least 20-30 minutes per meal. Avoid soda and limit caffeine consumption. Stop caffeine 2 weeks prior to surgery. Sip 48-64 oz hydrating fluid daily between meals and avoid drinking with meals. Use smaller plates/bowls/utensils for meals and eat smaller portions. Plan meals 1 wk in advance and shop with a list. Continue to keep a food journal. Consider cutting calories by 200 per day. Consider stopping fasting as this is not recommended post bariatric surgery and is not leading to weight loss. (Pt's stated goal of fasting.) Create a meal plan for the Stage 2 diet - goal is 60-80 grams protein per day. Have a few brands ofprotein drinks you like. Encouraged exercise as tolerated. Patient to attend a pre-op educational class prior to surgery. Read Handbook before coming to the class. Information given to patient: 1. [facility] Handbook, a 102 page document (revision October 2011) which contains extensive information regarding pre and post- operative nutrition guidelines including: preop diet, Diet stages I-IV, hydration recommendations, protein guidelines, dumping syndrome, food intoleranc es, vitamin and mineral supplementation as well as a list of books and online bariatric resources. * Natalia Singh APRN - 05/12/2023 9:00 AM EDT Images from the original note were not included. [facility] Bariatric Surgery Evaluation Reason for consultation: René is a 37 y.o. male referred by Keena Rosales APRN for consultation for consideration of surgical treatment of obesity. His preferred procedure: [place]-en-Y gastric bypass due to more weight loss. Prior bariatric surgery evaluations: [facility] (2019, couldn't meet weight loss goal). BARIATRIC SURGERY PROGRAM PATHWAY Review of progress with the requirements of the Bariatric Surgery Program: Education: He [x] has [] Has not attended a Introduction to the [facility] seminar, a comprehensive two hour meeting that provides a program overview, education on bariatric surgeries offered at [facility], risks and benefits, as well as patient expectations and follow up. [facility] Educational seminars viewed Bariatric Surgery Program evaluations with RD: Completed today Program start weight: 484 (Aug, 2022) WT at visit #1: Wt & BMI By Encounter Date Flowsheet Row Office Visit from 05/12/2023 in General Surgery at [facility] Office Visit from 04/22/2023 in Weight and Wellness at [facility] Weight 222.7 kg (491 lb) 1 05/12/2023 0840 222.6 kg (490 lb 12.8 oz) 1 04/22/2023 1443 BMI 68.73 1 05/12/2023 0840 67.95 1 04/22/2023 1443 Gallbladder status: [] intact, not studied. [x] S/P cholecystectomy VTE risk assessment: extended VTE prophylaxis [x] is [] is not indicated post bariatric surgery discharge Next steps in pathway: Additional testing/ consultations as determined as needed to be determined at today's visit. 8. HOSPITAL DISCHARGE NEEDS: [] Ursodiol [x] PPI [x] Lovenox (BMI >60, male, SUDHA) History of present illness: René states that he has struggled with obesity for many years. The patient has tried multiple weight loss measures without sustainable success. Factors that he identifies as contributing to his obesity include: genetics, overconsumption and inactivity. He seeks bariatric surgery for health reasons. His goals of surgery: to fit into things better (kayaks, amusement park rides), Improved QOL. Hx binge eating (doesn't ever feel full, never dx as BED). Most recent binge was 2021. He denies recent binge eating, night eating disorder, self-induced vomiting, laxative or diuretic use or excessive exercise to lose weight. Patient Active Problem List Diagnosis Class 3 severe obesity with serious comorbidity and body mass index (BMI) of 60.0 to 69.9 in adult Hypertension Hypertriglyceridemia SUDHA on CPAP Acute cholecystitis Anxiety Pre-Bariatric Surgery Obesity related medical issues: Problem [...] workout didn't determine cause ([facility]). -Hx alcohol abuse (see Dr. Garcia note). Functional status: Is ambulation limited most or all of the time? no Tolerance: he can walk a mile and climb a flight of stairs ADLs: able to carry on without difficulty- [x] independent [] partially dependent [] totally dependent [] Unknown Lactose/ Food/ Wheat/ Latex allergy/sensitivity: denies NSAID use: Takes ibuprofen 2x/month (knee pain). control plan: NA. MBSAQIP Preoperative Risk Assessment (negative if left blank): General [] Current smoker within 1 year Pulmonary [] COPD (Severe) [] History of pulmonary embolism Cardiac [] History of myocardial infarction [] Previous PCI/PTCA [] Previous cardiac surgery Vascular [] Vein thrombosis requiring therapy [] Venous stasis [] IVC filter IVC filter timing [] placed in anticipation of procedure [] IVC filter preexisting [] Unknown Renal [] Currently requiring or on dialysis [] Renal insufficiency Nutritional/Immune/Oncologyy/Other [] Steroid/Immunosuppressant use for chronic condition [] Therapeutic anticoagulation [] Previous obesity surgery/foregut surgery Past Surgical History: Procedure Laterality Date PRO LAP, CHOLECYSTECTOMY/GRAPH N/A 11/14/2019 LAPAROSCOPIC CHOLECYSTECTOMY WITH CHOLANGIOGRAM (WRVU 11.47) performed by Onesimo Chaves MD at [facility] MAIN OR Current Outpatient Medications: Acetylcysteine (NAC) 600 mg capsule, TAKE TWO CAPSULES BY MOUTH EVERY MORNING WITH TWO ADDITIONAL CAPSULES IN THE AFTERNOON/EARLY EVENING NEEDED FOR MOOD, Disp: , Rfl: topiramate (Topamax) 50 mg tablet, Take 1.5 tablets by mouth daily. X 2 weeks and if tolerating increase to 2 tabs at night. (Patient taking differently: Take 100 mg by mouth daily. X 2 weeks and if tolerating increase to 2 tabs at night.), Disp: 60 tablet, Rfl: 2 busPIRone (Buspar) 5 mg Tablet, Take 5 mg by mouth 2 times daily., Disp: , Rfl: Victoza 3-Carlo 0.6 mg/0.1 mL (18 mg/3 mL) Pen Injector, INJECT 1.8 MG SUBCUTANEOUSLY ONCE A DAY., Disp: , Rfl: metFORMIN (Glucophage) 500 mg Tablet, Take 2,000 mg by mouth Daily., Disp: , Rfl: Pentips 32 gauge x 5/32 Needle, USE 1 NEEDLE SUBCUTANEOUSLY ONCE DAILY DIRECTED, Disp: , Rfl: prazosin (Minipress) 1 mg Capsule, Take 2 mg by mouth nightly., Disp: , Rfl: propranoloL (Inderal) 10 mg Tablet, Take 10 mg by mouth 2 times daily., Disp: , Rfl: acetaminophen (Tylenol) 325 mg Tablet, Take 3 tablets by mouth every 6 hours as needed for Pain., Disp: 30 tablet, Rfl: 0 ibuprofen (Advil;Motrin) 400 mg Tablet, Take 1.5 tablets by mouth every 6 hours as needed for Pain., Disp: 30 tablet, Rfl: 0 LORazepam (Ativan) 0.5 mg Tablet, Take 0.5 mg by mouth daily as needed., Disp: , Rfl: venlafaxine (EFFEXOR-XR) 150 mg Capsule, Sust. Release 24 hr, Take 150 mg by mouth daily., Disp: , Rfl: Allergies Allergen Reactions Trazodone Other Reaction(s): Agitation Wellbutrin [Bupropion] Anxiety No family history on file. Social History Socioeconomic History Marital status: Single Spouse name: Not on file Number of children: Not on file Years of education: Not on file Highest education level: Not on file Occupational History Not on file Tobacco Use Smoking status: Former Types: Cigarettes Smokeless tobacco: Never Tobacco comments: Rare cigarette in high school Vaping Use Vaping Use: Never used Substance and Sexual Activity Alcohol use: Not on file Drug use: Not on file Sexual activity: Not on file Other Topics Concern Not on file Social History Narrative Not on file Social Determinants of Health Financial Resource Strain: Low Risk (10/14/2022) Overall Financial Resource Strain (CARDIA) Difficulty of Paying Living Expenses: Not very hard Food Insecurity: No Food Insecurity (10/14/2022) Hunger Vital Sign Worried About Running Out of Food in the Last Year: Never true Ran Out of Food in the Last Year: Never true Transportation Needs: No Transportation Needs (10/14/2022) PRAPARE - Transportation Lack of Transportation (Medical): No Lack of Transportation (Non-Medical): No Physical Activity: Not on file Intimate Partner Violence: Not on file Housing Stability: Low Risk (10/14/2022) Housing Stability Vital Sign Unable to Pay for Housing in the Last Year: No Number of Places Lived in the Last Year: 1 Unstable Housing in the Last Year: No In the past year: 11/18/2022 1:51 PM Q ALCOHOL TOBACCO AND DRUG SCREENING TOOL Drinks per day 1 to 2 drinks None currently. See Dr. Garcia note re: hx alcohol abuse. Diagnostic screenin. Lab data: Sending to the lab today. 2. Psychological evaluation done by Nilda Gillis, PhD, [facility] Weight and Wellness : no contraindication to bariatric surgery from a psychological perspective. Per Dr. Gillis: The follow up plan is as follows: No additional f/u. Will continue to support Dr. Alonzo and the bariatric team as needed and will schedule f/u appointment if warranted. Informed René that he can reach out in the future if he needs. Also informed René that this provider is willing toconnect with his community therapist if they believe that would be helpful for their work. Seeing community therapist monthly. Reports mental health is stable. PCP Rx mental health medications. Currently taking venlafaxine, lorazepam PRN. Reports significant improvement since February (see below). 02/09/2023 8:[address] [facility] Initial Responses WEL-SF Total Scores Incomplete PHQ-2 SubScore 4 GAD2 Subscore 6 (Full RUPERT-7 indicated) GAD7 Total Scores 21 (Severe Anxiety) PROMIS 10 Physical Scores 37.4 PROMIS 10 Mental Scores 31.3 Total REAP-S Scores 35 TFEQ - Uncontrolled Eating (UE) 74.07 TFEQ-Cognitive Restraint (CR) 44.44 TFEQ-Emotional Eating 38.89 Importance of making a change 10 - Very Important Confidence to make change 10 - Very Confident DPRP Score: 0 Bariatric Surgery VTE Risk Assessment Score Patients will be considered to be at high risk if they have one or more of the following: [x] Previous VTE or BMI >/= 60 kg/m2 Or two or more of the following: [] Age > 50 [x] BMI >/= 50 kg/m2 [x] Male sex [] Recent tobacco use [x] Obstructive sleep apnea [] Venous insufficiency/ varicose veins [] OCP or HRT within 30 days of surgery Total: extended VTE prophylaxis [x] is [] is not indicated post bariatric surgery discharge Patients are advised to stop HRT and OCP/ DMPA 1 month prior to surgery and hold for 1 month postop, and use control during this time if appropriate. All patients who take coumadin/ anti-10Ainhibitors preoperatively are referred to the Thrombosis Clinic for recommendations. Review of Systems (negative if left blank): GI: [] dysphagia [] early satiety [] abdominal pain [x] Hernia (ventral, no associated pain) [x] prior CT scan abdomen (re: hepatomegaly) [] nausea/vomiting [] blood in stool [] diarrhea [] constipation [] IBD [] postprandial RUQ pain Neurologic: [] dizziness [] chronic headaches Cardiovascular: [] history of chest pain, squeezing, pressure [] syncope [] murmur [] palpitations Respiratory: [] shortness of breath [] wheezing : [] hematuria [] history of renal calculi Musculoskeletal [x] myalgia/arthralgias: back and knee pain Extremities: [] varicose veins [] edema Skin: [] skinfold rashes [] chronic wounds Endocrine: [] PCOS [] thyroid disease Heme/Lymph: [] excessive bruising [] lymphadenopathy [x] iron deficiency history Allergic/ Immun: [] use of steroid/ immunosuppressant for chronic condition Psychiatric [x] depression [x] anxiety/panic attacks (well managed with medications and therapy) []history of suicide attempt [] addiction [] psychiatric or rehab admissions *Patient denied hx addiction, see Dr. Garcia note re: hx alcohol abuse. Physical exam: Vital signs: Patient Vitals for the past 24 hrs: Pulse BP SpO2 05/12/23 0840 67 148/86 99 % Body mass index is 68.74 kg/m??. Neuro: Non-focal. Psych: Pleasant, conversant, normal affect, cognition and mood. Behavior:[] defensive [] hostile [] expressive [] quiet [] monopolizing [] argumentative [x] insightful [] insightless[] fidgety [x] motivated [] apathetic [] preoccupied [] negativistic [] disruptive [x] attentive Mood: [x] stable [] labile [] depressed [] happy [] anxious [] hypomanic [] intense [] angry [] worrisome [] flat [] detached [] fearful [] sad ENT: Neck supple with normal ROM, no adenopathy or thyromegaly. Lungs: CTA bilaterally without wheezing. Heart: RRR, no murmur appreciated. Abdomen: Obese, soft, non- tender. Prior incisions: Well healed laparoscopy scars.. Hernias: None. Extremities: no lower extremity edema. Skin: No areas of skin breakdown. Obesity distribution: [x] Central [] Gyneoid Assessment/ Plan: 37 y.o. male with severe obesity with obesity-related comorbidities including hypertension, obstructive sleep apnea, anxiety disorder, and mild physical symptoms including dyspnea on moderate exertion and occasional aches and pains. He has had failure to sustain weight loss by medical management and meets the criteria proposed by the NIH Consensus Guidelines for surgical treatment of severe obesity and the AACE, TOS, ASMBS Clinical Practice Guidelines for the Perioperative Nutritional, Metabolic and Non-surgical Support of theBariatric Surgery Patient. He is aware that there are non-surgical methods to achieve weight loss. After review of his medical record, history and physical exam, I find him to be a good candidate for bariatric surgery. He is interested in a [place]-en-Y gastric bypass. Consent with Dr. Garcia. He has had an opportunity to have all his questions answered and is in agreement with the plan of care. He was encouraged to call with any questions or concerns. Pending: Dr. Garcia to discuss hx alcohol use with Dr. Gillis Preoperative Group Class CBC and CMP within 6 months of surgery, per [facility] accredited bariatric center guidelines. (Sent to lab today). Ongoing weight loss encouraged This was a 60 minute visit spent with patient discussing bariatric surgery readiness, risks and benefits. Additional time was spent reviewing previous notes and labs, in care coordination, ordering labs & completing documentation. Natalia Singh APRN * Stacie Garcia MD - 05/12/2023 9:00 AM EDT Attending addendum: I have seen and examined the patient jointly with Natalia Singh APRN. In brief, this is a 37 y.o. year old male with Body mass index is 68.74 kg/m??., presenting for evaluation prior to bariatric surgery. I agree with the events, physical exam findings and assessment/plan as outlined. He has been working with weight and wellness and was previously discussed at team meeting due to significant hepatomegaly. He does not have a history of cirrhosis. We discussed his significant alcohol use in the past - in 2019 he was documented as drinking 1/2 gallon of vodka per week. Fortunately he states that he stopped drinking about a year ago. He sees a counselor about once a month and states that he feels supported to undergo surgery. We discussed thatundergoing surgery can be emotionally challenging, and that there is an increased risk of substance abuse after bariatric surgery. I am also concerned that he did not volunteer his recent history until directly asked. Will discuss with our mental health team if there are other supports, etc needed prior to proceeding with surgery. Once clarified, will plan to proceed with laparoscopic belem en y gastric bypass. We discussed the procedures of laparoscopic sleeve gastrectomy and laparoscopic belem en y gastric bypass. The patient would like to proceed with a laparoscopic belem en y gastric bypass. We discussed the benefits of surgery as well as the small but real risks including but not limited to need for open surgery, bleeding, infection, anastomotic leak, DVT and pulmonary embolis, stricture, postoperative reflux and . We discussed the possibility of poor weight loss and the need to make sustained dietary changes inorder for the surgery to be successful. He understands the residential risks of vitamin deficiencies,internal hernias and ulcers. He realizes the need for life long follow up with the bariatric surgery program and understands the importance of the preoperative diet in terms of safety and ability to perform the procedure. Consent was signed today. All questions were answered and the patient desires to proceed. Hold victoza 1 week prior to surgery. STACIE GARCIA MD ------- Addendum - etoh history clarified. He has a history of binge drinking in the past, but in the last year. He denies every drinking the quantities of vodka previously documented in his medical record. Will plan to proceed. documented in this encounter Miscellaneous Notes * Addendum Note - Stacie Garcia MD - 05/12/2023 9:00 AM EDTAddended by: STACIE GARCIA on: 05/19/2023 04:55 PM Modules accepted: Orders documented in this encounter Plan of Treatment Upcoming Encounters Date Type Department Care Team (Late st Contact Info) Description 08/17/2024 11:00 AM EST Office [place] [address] Lamar Alonzo MD [facility] DR [facility] [address] documented as of this encounter Goals Goal Patient Goal Type Associated Problems Recent Progress Patient-Stated? Author Follow your diet plan as advised by your broodmare barn groom Diet No Fredette, Courtney I, RD Note: Images from the original note were not included. Nutrtion Goals: 04/25/23 TF Nutrition Goals: 03/28/23 TF Review and continue to work on the Eating Behaviors for success post gastric bypass Nutrition Goals updated today: 10/22/22 TF 1. Try Bolthouse dressing to reduce calories and increase in place Ranch 2. Work towards reducing total calroeus gradually to aim for 0401-9633 kcals (aim to reduce each meal by [...] documented as of this encounter Results * Hemoglobin A1c (05/12/2023 11:33 AM EDT) Hemoglobin A1c 5.4 4.3 - 5.6 % [facility] Comment: Reference Range: 4.3 - 5.6% 5.7 - 6.4% - Increased Risk of Developing Diabetes Mellitus >= 6.5% - Consistent with diagnosis of Diabetes Mellitus In the absence of hyperglycemia (i.e. plasma glucose > 200 mg/dL) or classic symptoms of hyperglycemia a repeat measurement of HbA1c should be performed on a separate sample to confirm the diagnosis. Diagnosis and Classification of Diabetes Mellitus, Diabetes Care 2013; 36: Suppl. 1, N94-38 Estimated Average Glucose 107 mg/dL [facility] Comment: Note: The eAG calculation has not been proven valid for women, individuals below 18 years old or above 70 years old, or individuals with hemoglobinopathies. Estimated average glucose (eAG) is calculated from the equation described in: Uriah DM, Whit J, Rishi R, et al. ??Translating the A1C assay into estimated average glucose values. ??Diabetes Care 2008:31(8):7918-6795. Additional resources are available on the ADA website (diabetes.org). Blood 05/12/2023 11:3 3 AM EDT 05/12/2023 11:50 AM EDT Narrative Resulting Agency Comment Spec In Lab Natalia E [place] CUMULATIVE EFFECTS ANALYST CHEMISTRY ORDERABL ES Performing Organization Address [facility]/ZIP Co de Phone Number [facility] [place] [address] * Vitamin D, 25-Hydroxy (05/12/2023 11:33 AM EDT) Vitamin D Total 25 OH 22 21 - 100 ng/mL [facility] Vit D Interp Insufficient [facility] Blood 05/12/2023 11:3 3 AM EDT 05/12/2023 11:50 AM EDT Narrative Resulting Agency Comment Spec In Lab Natalia E [place] CUMULATIVE EFFECTS ANALYST CHEMISTRY ORDERABL ES Performing Organization Address [facility] Co de Phone Number [facility] [place] [address] * Vitamin B12 (05/12/2023 11:33 AM EDT) Vitamin B12 442 232 - 1,245 pg/mL [facility] Blood 05/12/2023 11:3 3 AM EDT 05/12/2023 11:50 AM EDT Narrative Resulting Agency Comment Spec In Lab Natalia E [place] CUMULATIVE EFFECTS ANALYST CHEMISTRY ORDERABL ES Performing Organization Address [facility] Co de Phone Number [facility] [place] [address] * Vitamin B1, whole blood (05/12/2023 11:33 AM EDT) Vit B1 Lvl Wb (NOVEMBER) 131 70 - 180 nmol/L [facility] Comment: ADDITIONAL INFORMATION This test was developed and its performance characteristics determined by [facility] in a manner consistent with CLIA requirements. This test has not been cleared or approved by the U.S. Food and Drug Administration. Test Performed by: [facility] - [address] [address] Sales Representative Jewelry: Quincy Plummer M.D. Ph.D.; IA# [id number] Blood 05/12/2023 11:3 3 AM EDT 05/12/2023 1:03 PM EDT Narrative Resulting Agency Comment Spec In Lab Natalia E [place] CUMULATIVE EFFECTS ANALYST LAB SEND OUT ORDER CARON Performing Organization Address [facility]/ZIP Co de Phone Number [facility] [place] [address] * PTH (05/12/2023 11:33 AM EDT) Parathyroid Hormone 56 15 - 65 pg/mL [facility] Blood 05/12/2023 11:3 3 AM EDT 05/12/2023 11:50 AM EDT Narrative Resulting Agency Comment Spec In Lab Natalia E [place] CUMULATIVE EFFECTS ANALYST CHEMISTRY ORDERABL ES Performing Organization Address [facility] de Phone Number [facility] [place] [address] * (ABNORMAL) Iron and TIBC (05/12/2023 11:33 AM EDT) Iron 63 45 - 160 mcg/dL [facility] TIBC 342 250 - 450 mcg/dL [facility] Iron Saturation 18(L) 20 - 50 % [facility] Blood 05/12/2023 11:3 3 AM EDT 05/12/2023 11:50 AM EDT Narrative Resulting Agency Comment Spec In Lab Natalia E [place] CUMULATIVE EFFECTS ANALYST CHEMISTRY ORDERABL ES Performing Organization Address [facility] Co de Phone Number [facility] [place] [address] * (ABNORMAL) Hemogram (05/12/2023 11:33 AM EDT) White Blood Cell 6.7 4.0 - 9.5 x10(3)/mc L [facility] Red Blood Cell 4.99 4.58 - 5.54 x10(6)/mc L [facility] Hemoglobin 13.5(L) 13.7 - 16.5 g/dL [facility] Hematocrit 41.7 40.5 - 48.5 % [facility] Mean Cell Volume 83.6 82.9 - 93.1 fL [facility] Mean Cell Hemoglobin 27.1(L) 27.5 - 32.1 pg [facility] Mean Cell Hemoglobin Concentration 32.4 32.0 - 35.7 g/dL [facility] Platelet 261 145 - 357 x10(3)/mc L [facility] RDW Standard Deviation 46.3(H) 36.0 - 45.0 fL [facility] RDW coefficient of variation 15.3(H) 11.4 - 13.8 % [facility] Mean Platelet Volume 8.9 7.6 - 12.9 fL [facility] NRBC% auto 0.0 % [facility] NRBC Absolute 0.000 0.000 - 0.000 x10(3)/mc L [facility] Blood 05/12/2023 11:3 3 AM EDT 05/12/2023 11:50 AM EDT Narrative Resulting Agency Comment Spec In Lab Natalia E [place] CUMULATIVE EFFECTS ANALYST HEMATOLOGY ORDERAB LES Performing Organization Address City/[facility]/ZIP Co de Phone Number [facility] [place] [address] * Folate, serum (05/12/2023 11:33 AM EDT) Folate 18.9 4.8 - 24.2 ng/mL [facility] Blood 05/12/2023 11:3 3 AM EDT 05/12/2023 11:50 AM EDT Narrative Resulting Agency Comment Spec In Lab Natalia E [place] CUMULATIVE EFFECTS ANALYST CHEMISTRY ORDERABL ES Performing Organization Address City/[facility]/ZIP Co de Phone Number [facility] [place] [address] * Ferritin (05/12/2023 11:33 AM EDT) Ferritin 195 30 - 400 ng/mL [facility] Comment: Pediatric reference ranges not verified at [facility], interpret with caution. Reference ranges for females greater than 50 years of age approach values for men, i.e., 30-400 ng/mL. Blood 05/12/2023 11:3 3 AM EDT 05/12/2023 11:50 AM EDT Narrative Resulting Agency Comment Spec In Lab Natalia E [place] CUMULATIVE EFFECTS ANALYST CHEMISTRY ORDERABL ES [facility] [place] [address] * (ABNORMAL) Comprehensive metabolic panel (non-fasting) (05/12/2023 11:33 AM EDT) Glucose 114 65 - 199 mg/dL [facility] Comment:Diabetes: >=200 mg/d L plus symptoms Blood Urea Nitrogen 15 10 - 20 mg/dL [facility] Creatinine 0.69(L) 0.80 - 1.50 mg/dL [facility] Sodium 141 135 - 145 mmol/L [facility] Potassium 4.3 3.5 - 5.0 mmol/L [facility] Comment: Please note: ??Patients with WBC >100,000 may have falsely elevated Potassium levels. ??For accurate Potassium quantification in these patients send serum separator tube (gold top) for subsequent determinations. ??Contact the Clinical Chemistry Laboratory if there are any questions. Chloride 105 98 - 107 mmol/L [facility] Carbon Dioxide 26 22 - 31 mmol/L [facility] Anion Gap 10 5 - 15 mmol/L [facility] Calcium 9.5 8.5 - 10.5 mg/dL [facility] Protein, Total 7.6 6.1 - 8.0 g/dL [facility] Albumin 4.3 3.2 - 5.2 g/dL [facility] Aspartate Aminotransferase 33 0 - 39 unit/L [facility] Alanine Aminotransferase 39 0 - 55 unit/L [facility] Alkaline Phosphatase 70 40 - 130 unit/L [facility] Bilirubin, Total 0.4 0.2 - 1.3 mg/dL [facility] Est Glomerular Filtration Rate 123 >=60 mL/min/1. 73 m?? [facility] Comment: This patient's estimated GFR [...] and symptoms in addition to eGFR. Blood 05/12/2023 11:3 3 AM EDT 05/12/2023 11:50 AM EDT Narrative Resulting Agency Comment Spec In Lab Natalia E Samantha [place] [address] documented in this encounter Visit Diagnoses Diagnosis Pre-op evaluation Preoperative examination, unspecified Obesity, unspecified classification, unspecified obesity type, unspecified whether serious comorbidity present documented in this encounter Care Teams Director Of Valuation Relationship Specialty Start Date End Date Keena Rosales APRN [address] [place] [address] PCP - General Family Medicine 11/04/21 documented as of this encounter
--- OUTSIDE RECORDS SUMMARY | 2024-07-13 14:55 | XMS_ITS | Encounter Summary ---
Author Organization [facility] [place] [address] Care Team Providers Care Human Resources Coordinator Name Role Phone Keena Rosales APRN Primary Care Provider [phone] Encounter Details Date Type Department Care Team (Late st Contact Info) Description 05/12/2023 Telephone [place] [address] Natalia Singh CUT PLUG PACKER [facility] [place] [address] Social History Tobacco Use Types Packs/Day Years Used Date Smoking Tobacco: Former Cigarettes Smokeless Tobacco: Never Comments:Rare cigarette in [employer] Overall Financial Resource Strain (CARDIA) Answe [...] in a [facility] (including now)? No 10/14/2022 Sex and Gender Information Value Date Recorded Sex Assigned at Not on file Gender Identity Not on file Sexual Orientation Not on file documented as of this encounter Miscellaneous Notes * Telephone Encounter - Natalia Singh, CUT PLUG PACKER - 05/12/2023 4:09 PM EDT Called patient to obtain name of community therapist and permission to connect with said provider. No answer. LMTCB. Patient returned my call. Current community therapist is Grover at [facility]. René provides his verbal permission for our team to reach out to her. He recently switched therapists (previously saw Elvis moore in [place]). Further discussion re: hx alcohol use. René explains he goes to AA to help his brother in law who manages the meetings, not as a participant. He notes that he used to green party, which he explains included binge drinking on weekends- 12-18 alcoholic seltzers/night at times, rare hard liquor. He reports he quit drinking after finding out about his enlarged liver. No hx of detox/rehab/AA. Has hadno alcohol in about 1 year Discussed previous medical documentation (discharge summary re: cholecystectomy references drinking1/2 gallon of vodka daily in 2020, though during the same admission a referenced quantity of 1/2 gallon/week was noted). René denies ever drinking 1/2 gallon vodka daily. He recalls that he was was concerned that anesthesia might interact with heavy weekend drinking and thus disclosed his binge drinking. He does not recall ever having symptoms of alcohol detox and states he has never been torehab. René apologized for the miscommunication and states he had no intention of being deceitful. Will update team. Patient denies further questions at this time. documented in this encounter Plan of Treatment Upcoming Encounters Date Type Department Care Team (Late st Contact Info) Description 08/17/2024 11:00 AM EST Office [place] [address] Lamar Alonzo MD [facility] DR [facility] [address] documented as of this encounter Goals Goal Patient Goal Type Associated Problems Recent Progress Patient-Stated? Author Follow your diet plan as advised by your day care center director Courtney Owens RD Note: Images from the original note were not included. Nutrtion Goals: 04/25/23 TF Nutrition Goals: 03/28/23 TF Review and continue to work on the Eating Behaviors for success post gastric bypass Nutrition Goals updated today: 10/22/22 TF 1. Try Bolthouse dressing to reduce calories and increase in place Ranch 2. Work towards reducing total calroeus gradually to aim for 0216-3306 kcals (aim to reduce each meal by [...] on filedocumented in this encounter Care Teams Human Resources Coordinator Relationship Specialty Start Date End Date Keena Rosales APRN [address] [place] [address] PCP - General Family Medicine 11/04/21 documented as of this encounter
--- OUTSIDE RECORDS SUMMARY | 2024-07-13 14:55 | XMS_ITS | Encounter Summary ---
Author Organization [facility] Address [facility] [place] [address] Care Team Providers Care Time Lock Expert Name Role Phone Keena Rosales APRN Primary Care Provider [phone] Encounter Details Date Type Department Care Team (Latest Contact Info) Description 03/28/2023 8:30 AM EDT TH Visit (TeleHealth) [place] [address] Courtney Kennedy I, RD [facility] [place] [address] Class 3 severe obesity with serious comorbidity and body mass index (BMI) of 60.0 to 69.9 in adult, unspecified obesity type Social History Tobacco Use Types Packs/Day [...] medical appointments or from getting medications? No 04/0 12/2022 In the past 12 months, has [...] - Inhaled Oxygen Concentration - - Weight 218.6 kg (482 lb) 03/28/2023 8:58 AM EDT Height 181 cm (5' 11.26) 03/28/2023 8:58 AM EDT Body Mass Index 66.74 03/28/2023 8:58 AM EDT documented in this encounter Patient Instructions * Patient Instructions* Courtney Kennedy RD - 03/28/2023 8:30 AM EDT Images from the original note were not included. Goals Addressed This Visit's Progress Follow your diet plan as advised by your fire alarm operator Nutrition Goals: 03/28/23 TF Review and continue to work on the Eating Behaviors for success post gastric bypass Nutrition Goals updated today: 10/22/22 TF 1. Try Bolthouse dressing to reduce calories and increase in place Ranch 2. Work towards reducing total calroeus gradually to aim for 4273-1973 kcals (aim to reduce each meal by [...] low carb; averaging ~ 1,900 kcals documented in this encounter Progress Notes * Courtney Kennedy Angela, RD - 03/28/2023 8:30 AM EDT Images from the original note were not included. Nutrition Intervention for Weight Management Initial RD visit with ZENA Rocha 1985 Weight Today: Wt Readings from Last 3 Encounters: 03/28/23 (!) 218.6 kg (482 lb) 02/16/23 (!) 223.7 kg (493 lb 3.2 oz) 10/22/22 (!) 221.4 kg (488 lb) BMI Readings from Last 3 Encounters: 03/28/23 66.74 kg/m?? 02/16/23 68.29 kg/m?? 10/22/22 67.57 kg/m?? Pertinent Meds: Victoza 1.8 mg Topirimate in the evenings Interview: Fasting 2 days/week dinner to dinner. Pt still struggles with high hunger levels despiteAOM; and feels he could keep eating but works hard on portion control Typical Dietary Intake: B: eggs and sausage and keto yogurt L: salad with chicken and Ranch and veggies D: turkey geovany, broccoli and cottage cheese (protein, green leafy veg, and cottage cheese) S: Typical Beverages: [] coffee / tea [x] water - (total: [] plain [] sugar-free additive [x] Diet Powerade and occasiaonal diet soda [] regular soda [] Juice or other sugar-sweetened [] Milk [] Alcohol - (How much? Appetite/Hunger: [] Poor appetite r/t [] Currently well-managed [x] Not managed (see interview) - despite OAM Bariatric eating behaviors Checked boxes are currently being met (other notes below in bold): [x] Stop eating at comfortable full point (eating slowly to know, chewing thoroughly) [x] Regular meal pattern, avoid grazing, reasonable snack frequency [x] Plan protein at all meals and snacks, eat protein first [x] Decrease sources of concentrated (added) sugars or high-fat foods [x] Track foods in notebook with calories or by using an yasmeen [x] Understand portions and total food consumed [x] Total water intake [x] eating and drinking by 30 minutes on either side [x] Sip rather than gulp [x] Eliminate diet or regular soda prior to surgery [x] Reduce coffee intake down to ~1 cup (caffeine) prior to surgery [x] Reduce alcohol, ideally avoid [x] No nicotine (STOP date, if applicable: Activity: [x] reviewed current goals; ADL's and an active job; no additional [] updated goal Nutrition Goals updated today: Goals Addressed This Visit's Progress Follow your diet plan as advised by your fire alarm operator Nutrition Goals: 03/28/23 TF Review and continue to work on the Eating Behaviors for success post gastric bypass Nutrition Goals updated today: 10/22/22 TF 1. Try Bolthouse dressing to reduce calories and increase in place Ranch 2. Work towards reducing total calroeus gradually to aim for 5268-0070 kcals (aim to reduce each meal by 100 kcals) Nutrition Goals updated today: 09/24/22 TF 1. Practice eating and drinking by 30 minutes on either side - successful at work; a little more difficult at home 2. Track all food for the next 4 weeks in to My Fitness Pal - aim for 2,000 calories/day at most; low carb; averaging ~ 1,900 kcals Handouts provided today: Readiness for surgery summary: [] Needs additional dietary support to reach above goals; not ready for transition to surgical team. Follow-up plan below [] Pre-Bariatric nutrition goals met; ready for transition to surgical team Monitor/Evaluate: [] Needs additional fuv scheduled with this insurance writer: No follow-ups on file. (OR) [] Currently scheduled for: [] 1st consecutive monthly nutrition visit [] 2nd consecutive monthly nutrition visit [x] 3rd consecutive monthly nutrition visit (OR) [] Patient has met requirement of 3 consecutive monthly nutrition visits Above determined to the best ability of this insurance writer. Patient will contact bariatric surgery team for any official determination about about scheduling and insurance requirements ( ) Thank you Courtney Kennedy MS, RD LD 30 minutes were spent in [id number] (virtual or in-person) contact during visit today documented in this encounter Plan of Treatment Upcoming Encounters Date Type Department Care Team (Late st Contact Info) Description 08/17/2024 11:00 AM EST [place] [address] Lamar Alonzo MD [facility] [address] documented as of this encounter Goals Goal Patient Goal Type Associated Problems Recent Progress Patient-Stated? Author Follow your diet plan as advised by your fire alarm operator Courtney Owens RD Note: Images from the original note were not included. Nutrtion Goals: 04/25/23 TF Nutrition Goals: 03/28/23 TF Review and continue to work on the Eating Behaviors for success post gastric bypass Nutrition Goals updated today: 10/22/22 TF 1. Try Bolthouse dressing to reduce calories and increase in place Ranch 2. Work towards reducing total calroeus gradually to aim for 4960-9916 kcals (aim to reduce each meal by [...] to 69.9 in adult, unspecified obesity type documented in this encounter Care Teams Time Lock Expert Relationship Specialty Start Date End Date Keena Rosales APRN [address] [place] [address] PCP - General Family Medicine 11/04/21 documented as of this encounter
--- OUTSIDE RECORDS SUMMARY | 2024-07-13 14:55 | XMS_ITS | Encounter Summary ---
Author Organization [facility] Address [facility] [place] [address] Care Team Providers Care Scientific Programmer Name Role Phone Keena Rosales APRN Primary Care Provider [phone] Encounter Details Date Type Department Care Team (Latest Contact Info) Description 04/22/2023 Travel Social History Tobacco Use Types Packs/Day [...] place to sleep or slept in a custodial (including now)? No 10/14/2022 Sex and Gender Information Value Date Recorded Sex Assigned at Not on file Gender Identity Not on file Sexual Orientation Not on file documented as of this encounter Plan of Treatment Upcoming Encounters Date Type Department Care Team (Late st Contact Info) Description 08/17/2024 11:00 AM EST Office [place] [address] Lamar Alonzo MD [facility] [address] [facility] [place] [address] documented as of this encounter Goals Goal Patient Goal Type Associated Problems Recent Progress Patient-Stated? Author Follow your diet plan as advised by your instrumentation tech Diet Courtney Mccallum RD Note: Images from the original note were not included. Nutrtion Goals: 04/25/23 TF Nutrition Goals: 03/28/23 TF Review and continue to work on the Eating Behaviors for success post gastric bypass Nutrition Goals updated today: 10/22/22 TF 1. Try Bolthouse dressing to reduce calories and increase in place Ranch 2. Work towards reducing total calroeus gradually to aim for 9614-6670 kcals (aim to reduce each meal by [...] on filedocumented in this encounter Care Teams Scientific Programmer Relationship Specialty Start Date End Date Keena Rosales APRN [address] [place] [address] PCP - General Family Medicine 11/04/21 documented as of this encounter
--- OUTSIDE RECORDS SUMMARY | 2024-07-13 14:55 | XMS_ITS | Encounter Summary ---
Author Organization [facility] [place] [address] Care Team Providers Care End Worker Name Role Phone Keena Rosales APRN Primary Care Provider [phone] Encounter Details Date Type Department Care Team (Latest Contact Info) Description 03/31/2023 Trans[place] [address] Keena Rosales APRN [address] [place], [place] [id number] Hypertension, unspecified type; Pre-operative laboratory examination Social History Tobacco Use Types Packs/Day Years Used Date Smoking Tobacco: Former Cigarettes Smokeless Tobacco: Never Comments:Rare cigarette in [employer] school Overall Financial Resource Strain (CARDIA) Answe [...] AM EST Office [place] [phone] Lamar Alonzo MD [facility] [address] [facility] [address] documented as of this encounter Goals Goal Patient Goal Type Associated Problems Recent Progress Patient-Stated? Author Follow your diet plan as advised by your hand stamper Courtney Owens RD Note: Images from the original note were not included. Nutrtion Goals: 04/25/23 TF Nutrition Goals: 03/28/23 TF Review and continue to work on the Eating Behaviors for success post gastric bypass Nutrition Goals updated today: 10/22/22 TF 1. Try Bolthouse dressing to reduce calories and increase in place Ranch 2. Work towards reducing total calroeus gradually to aim for 0246-4594 kcals (aim to reduce each meal by [...] documented as of this encounter Results * (ABNORMAL) Creatinine (03/31/2023 2:29 PM EDT) Creatinine 0.60(L) 0.80 - 1.50 mg/dL [facility] Est Glomerular Filtration Rate 128 >=60 mL/min/1. 73 m?? [facility] Comment: This patient's estimated GFR was [...] and symptoms in addition to eGFR. Blood 03/31/2023 2:29 PM EDT 03/31/2023 2:53 PM EDT Narrative Resulting Agency Comment Spec In Lab Keena Rosales APRN CHEMISTRY ORDERAB LES Performing Organization Address City/State/[facility] Co de Phone Number [facility] [place] [address] documented in this encounter Visit Diagnoses Diagnosis Hypertension, unspecified type Pre-operative laboratory examination Pre-procedural laboratory examination documented in this encounter Care Teams End Worker Relationship Specialty Start Date End Date Keena Rosales APRN [address] [place] [address] PCP - General Family Medicine 11/04/21 documented as of this encounter
--- OUTSIDE RECORDS SUMMARY | 2024-07-13 14:55 | XMS_ITS | Encounter Summary ---
Author Organization [facility] Address [facility] [place] [address] Care Team Providers Care Block Saw Operator Name Role Phone Keena Rosales APRN Primary Care Provider [phone] Encounter Details Date Type Department Care Team (Late st Contact Info) Description 04/22/2023 2:30 PM EDT Office [place] [phone] Lamar Alonzo MD [facility] DR [facility] [place] [address] Class 3 severe obesity with serious comorbidity and body mass index (BMI) of 60.0 to 69.9 in adult, unspecified obesity type; RUPERT (generalized anxiety disorder); Hypertriglyceridemia ; Hypertension, unspecified type; SUDHA on CPAP; Anxiety Social History Tobacco Use Types Packs/Day Years Used Date Smoking Tobacco: Former Cigarettes Smokeless Tobacco: Never Tobacco Cessation:Counseling Given: Not Answered Comments:Rare cigarette in high school Overall Financial Resource Strain (CARDIA) [place] [...] place to sleep or slept in a care home (including now)? No 10/14/2022 Sex and Gender Information Value Date Recorded Sex Assigned at Not on file Gender Identity Not on file Sexual Orientation Not on file documented as of this encounter Last Filed Vital Signs Vital Sign Reading Time Taken Comments Blood Pressure 132/80 04/22/2023 2:43 PM EDT Pulse 73 04/22/2023 2:43 PM EDT Temperature - - Respiratory Rate - - Oxygen Saturation - - Inhaled Oxygen Concentration - - Weight 222.6 kg (490 lb 12.8 oz) 04/22/2023 2:43 PM EDT Height 181 cm (5' 11.26) 04/22/2023 2:43 PM EDT Body Mass Index 67.95 04/22/2023 2:43 PM EDT documented in this encounter Progress Notes * Lamar Alonzo MD - 04/22/2023 2:30 PM EDTSummary: 3rd visit with [facility] Patient Name: René Wayne Date of : 1985 PCP: Keena Rosales APRN CHIEF COMPLAINT: F/u for treatment of WHO Class 3 / EOSS Stage 2 Obesity, defined by BMI at presentation, with complications: HTN, SUDHA on CPAP, anxiety, FLD, hyper TG. . This is Visit #3 [facility] visit for this 37 y.o. patient. Weight gain due to: genetics, stress Initial weight 08/25/22: 484 lbs 02/16/2023, 493 lbs (+ 9 lbs) 04/22/2023, 490 lbs (- 3 lbs) [facility] Team: Courtney Kennedy, RD and Nilda Gillis, PhD HPI Feeling a bit better. Has more of a system, low carb. 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 Heavy lifting, plywood boards. Clothes are looser. Trying not to put so much attention on the scale, just moving on. PILLARS Stress - in therapy, doing fine. Handling it. 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 Not bad. Very different. Nutrition/Recall: Reviewed RD visits AOM: Currently taking: Victoza 1.8 mg, Metformin 2000 mg, topiramate [...] recommendations including appropriate caloric restriction per RD Prebariatric counseling Behavior: Portion control, Struggles to maintain change Activity: Advancing Barriers: []needs cardiac eval []injury/pain preventing activity right now Stress Management:has counselor Sleep: SUDHA - treated Self-monitoring: Food log Groups of interest: Discussion 04/22/23: On BSP, concerned about weight loss goal. Also recently had CT abd to follow FLD/HM and liver has increased in size. We reviewed the images together. We discussed the preop diet as a guide to follow to see if he can accelerate his weight loss and potentially start shrinking hisliver. Will discuss him at [facility] meeting end of month so surgeons aware of imaging. Knows to take MVS if following preop diet strictly. Will increase topiramate as well. Cannot take phentermine due tosevere health anxiety about potential cardiac events. Cont f/u. 08/25/2022 2:00 PM [facility] - ADULT Pre- Bariatric Surgery Activate Adult Biobank Activate VITAL SIGNS: Vitals: 04/22/23 1443 BP: 132/80 BP Location (NBP): Right arm Patient Position: Sitting BP Cuff Sizes: Large Adult (32-43 cm) Pulse: 73 Weight: (!) 222.6 kg (490 lb 12.8 oz) Height: 181 cm (5' 11.26) Body mass index is 67.95 kg/m??. PHYSICAL EXAM: Gen: Alert and appropriate, NAD. LABS: Lab Results Component Value Date WBC 8.31 10/19/2022 RBC 4.95 10/19/2022 HGB 13.9 10/19/2022 HCT 42.5 10/19/2022 MCV 85.9 11/14/2019 MCH 26.9 (L) 11/14/2019 MCHC 31.3 (L) 11/14/2019 PLATELET 314 10/19/2022 RDWCV 14.8 (H) 11/14/2019 Lab Results Component Value Date NA 141 10/19/2022 K 4.8 10/19/2022 CL 104 08/23/2022 CO2 29 08/23/2022 BUN 14 10/19/2022 CREATININE 0.60 (L) 03/31/2023 GLUCOSE 115 11/14/2019 GLUCFASTING 105 08/23/2022 CALCIUM 8.7 10/19/2022 ESTGFR 128 03/31/2023 Lab Results Component Value Date ALT 47 10/19/2022 AST 17 10/19/2022 ALKPHOS 81 10/19/2022 BILITOT 0.2 10/19/2022 BILIDIR 0.1 11/14/2019 ALBUMIN 3.5 10/19/2022 PROT 7.0 10/19/2022 Lab Results Component Value Date CHLPL 144 02/12/2022 HDL 28 02/12/2022 TRIG 239 02/12/2022 LDLCHOL 69 02/12/2022 Lab Results Component Value Date HA1C 5.3 02/12/2022 Lab Results Component Value Date TSH 1.39 02/12/2022 No results found for: LABINSU Lab Results Component Value Date GLUCFASTING 105 08/23/2022 Lab Results Component Value Date UUPZHESI89 503 10/19/2022 25-OH Vit D Total (no units) Date Value Status 10/19/2022 15.2 (L) Final No results found for: URICACID ASSESSMENT [...] to 69.9 in adult,unspecified obesity type - topiramate (Topamax) 50 mg tablet; Take 1.5 tablets by mouth daily. X 2 weeks and if tolerating increase to 2 tabs at night. RUPERT (generalized anxiety disorder) Hypertriglyceridemia Hypertension, unspecified type SUDHA on CPAP Anxiety No orders of the defined types were placed in this encounter. Return in about 6 weeks (around 06/03/2023) for In person or Zoom, With me. 1 min chart review 30 min cwtd-da-heyu visit 5 min documentation time - including same day cc with BS I spent time above reviewing labs, writing prescriptions, documenting visit, examining the patient,arranging other specialty care, counseling in diet and/or exercise and discussion of treatment options in the care of obesity. documented in this encounter Plan of Treatment Upcoming Encounters Date Type Department Care Team (Late st Contact Info) Description 08/17/2024 11:00 AM EST Office [place] [address] Lamar Alonzo MD [facility] DR [facility] [place] [address] documented as of this encounter Goals Goal Patient Goal Type Associated Problems Recent Progress Patient-Stated? Author Follow your diet plan as advised by your computer forensics investigator Courtney Owens RD Note: Images from the original note were not included. Nutrtion Goals: 04/25/23 TF Nutrition Goals: 03/28/23 TF Review and continue to work on the Eating Behaviors for success post gastric bypass Nutrition Goals updated today: 10/22/22 TF 1. Try Bolthouse dressing to reduce calories and increase in place Ranch 2. Work towards reducing total calroeus gradually to aim for [id number] kcals (aim to reduce each meal by [...] unspecified obesity type RUPERT (generalized anxiety disorder) Generalized anxiety disorder Hypertriglyceridemia Pure hyperglyceridemia Hypertension, unspecified type SUDHA on CPAP Obstructive sleep apnea (adult) (pediatric) Anxiety Anxiety state, unspecified documented in this encounter Care Teams Block Saw Operator Relationship Specialty Start Date End Date Keena Rosales APRN [address] [place] [address] PCP - General Family Medicine 11/04/21 documented as of this encounter
--- OUTSIDE RECORDS SUMMARY | 2024-07-13 14:55 | XMS_ITS | Encounter Summary ---
Author Organization [facility] [place] [address] Care Team Providers Care Senior Web Architect Name Role Phone Keena Rosales APRN Primary Care Provider [phone] Encounter Details Date Type Department Care Team (Late st Contact Info) Description 05/20/2023 Telephone Weight Center at [facility] [place] [phone] Nelly Hernandez RN Social History Tobacco Use [...] Telephone Encounter - Nelly Hernandez RN - 05/20/2023 10:28 AM EST Called [facility] to ask who this patient's mental health provider is. Our provider Nilda Gillis, PhD has a form she would like to fax over for them to complete but need the provider last name to help ensure it gets to the right person. Patient's mental health provider is Romana Bacon Fax #: [phone] documented in this encounter Plan of Treatment Upcoming Encounters Date Type Department Care Team (Late st Contact Info) Description 08/17/2024 11:00 AM EST Office [place] [phone] Lamar Alonzo MD [facility] DR [facility] [place] [address] documented as of this encounter Goals Goal Patient Goal Type Associated Problems Recent Progress Patient-Stated? Author Follow your diet plan as advised by your automotive engineering teacher Courtney Owens RD Note: Images from the original note were not included. Nutrtion Goals: 04/25/23 TF Nutrition Goals: 03/28/23 TF Review and continue to work on the Eating Behaviors for success post gastric bypass Nutrition Goals updated today: 10/22/22 TF 1. Try Bolthouse dressing to reduce calories and increase in place Ranch 2. Work towards reducing total calroeus gradually to aim for [id number] kcals (aim to reduce each meal by [...] filedocumented in this encounter Care Teams Senior Web Architect Relationship Specialty Start Date End Date Keena Rosales APRN [address] [place] [address] PCP - General Family Medicine 11/04/21 documented as of this encounter
--- OUTSIDE RECORDS SUMMARY | 2024-07-13 14:55 | XMS_ITS | Encounter Summary ---
Author Organization [facility] [place] [address] Care Team Providers Care Varnish Maker Name Role Phone Keena Rosales APRN Primary Care Provider [phone] Reason for Visit * Auth/Cert (Routine) Specialty Diagnoses / Procedures Referred By Alma t Referred To Contact Diagnoses Obesity Procedures PRO LAP GASTRIC BYPASS/LAUREN-EN-Y PRO UPPER GI ENDOSCOPY, DIAGNOSTIC @LAPAROSCOPIC GASTROPLASTY W/ LAUREN-EN-Y CONSTRUCTION (WRVU 29.4) EGD, UPPER GI ENDOSCOPY (WRVU 2.09) Terri Garcia MD [facility] [place] [address] [facility] Referral ID Status Reason Start Date Expiration Date Visits Re quested Visits Authorized [id number] 1 1 Encounter Details Date Type Department Care Team (Late st Contact Info) Description 07/27/2023 7:30 AM EST - 07/27/2023 11:39 AM EST Surgery [place] [address] Terri Garcia MD [facility] [place] [address] @LAPAROSCOPIC GASTROPLASTY W/ LAUREN-EN-Y CONSTRUCTION (WRVU 29.4) Social History Tobacco Use Types Packs/Day Years [...] in a fdc (including now)? No 10/14/2022 DH IPV Inpatient [...] Sign Reading Time Taken Comments Blood Pressure 183/97 07/27/2023 6:40 AM EST Pulse 68 07/27/2023 6:40 AM EST Temperature 36.4 ??C (97.5 ??F) 07/27/2023 6:40 AM ES T Respiratory Rate 20 07/27/2023 6:40 AM EST Oxygen Saturation 99% 07/27/2023 6:40 AM EST Inhaled Oxygen Concentration - - Weight 232.6 kg (512 lb 14.4 oz) 07/27/2023 6:40 AM EST Height 180.3 cm (5' 11) 07/27/2023 6:40 AM EST Body Mass Index 71.54 07/27/2023 6:40 AM EST documented in this encounter Discharge Summaries * Silvia Espinoza PA - 07/28/2023 12:46 PM EST Images from the original note were not included. Bariatric Surgery Discharge Summary Patient Name: René Wayne Patient Age: 37 y.o. : 1985 Attending Physician: Terri Garcia MD Date of Admission: 07/27/2023 Date of Discharge: 07/28/2023 Primary Diagnosis: Morbid Obesity Secondary Diagnosis: Patient Active Problem List Diagnosis Code Anxiety [...] F41.0 S/P cholecystectomy Z90.49 Morbid obesity E66.01 Operations and Procedures: Procedure(s): @LAPAROSCOPIC GASTROPLASTY W/ LAUREN-EN-Y CONSTRUCTION (WRVU 29.4) EGD, UPPER GI ENDOSCOPY (WRVU 2.09) Surgeons: Surgeon(s) and Role: * Terir Garcia MD - Primary * Jacob Gupta [...] discontinued on POD#1. he did not have Perkins catheter and was voiding without difficulty for [...] determined medically ready for discharge to home. Vital Signs Last value Range last 24hrs Temperature Temp: 37 ??C (98.6 ??F) Temp: [36.3 ??C (97.3 ??F)-37 ??C (98.6 ??F)] Heart Rate Heart Rate: 71 Heart Rate: -- Blood Pressure BP: 139/87 BP: (117-165)/(69-102) Respiratory Rate Resp: 18 Resp: [18-20] SpO2 SpO2: 96 % SpO2: [94 %-97 %] Pertinent Lab Data: Recent Labs 07/28/23 0407 WBC 10.6* HGB 12.7* HCT 37.7* PLATELET 284 Recent Labs 07/28/23 0407 NA 141 K 3.6 CL 107 CO2 23 BUN 13 CREATININE 0.85 GLUCOSE 111 CALCIUM 9.2 MAGNESIUM 0.87 PHOS 3.5 Physical Exam: General: AOx3, pleasant, conversant, no acute distress HEENT: normocephalic, atraumatic, PERRLA, anicteric sclerae CVS: RRR on monitor Pulm: breathing comfortably on room air Abd: soft, nontender, non-distended, incisions clean/dry/intact : no perkins Skin: warm, dry Ext: well perfused, no jaundice or cyanosis, no edema Neuro: CN 2-12 grossly intact, nonfocal, moving all four extremities spontaneously Imaging: No results found. Condition at discharge: Stable Mental Status: awake and alert, oriented x 3 Medications: Your Medications New Medications Dose Details docusate sodium 100 mg capsule Commonly known as: Colace Take 1 capsule by mouth 2 times daily as needed for Constipation. 100 mg Refills: 0 enoxaparin 40 mg/0.4 mL Syringe Commonly known as: Lovenox Inject 0.4 mLs subcutaneously 2 times daily for 10 days. 40 mg Quantity: 8 mL Refills: [address] capsule Commonly known as: PriLOSEC Take 1 capsule by mouth daily for 90 days. 40 mg Quantity: 90 capsule Refills: 0 ondansetron ODT 4 mg disintegrating tablet Commonly known as: Zofran-ODT Take 1 tablet by mouth every 8 hours as needed for Nausea. 4 mg Quantity: 20 tablet Refills: 0 oxyCODONE 5 mg/5 mL Solution Commonly known as: Roxicodone Take 5 mLs by mouth every 6 hours as needed for Pain. 5 mg Quantity: 40 mL Refills: 0 polyethylene glycoL 17 gram/dose Powder Commonly known as: Miralax Take 17 g by mouth daily. 17 g Refills: 0 Continued medications with new dosing Dose Details * venlafaxine 150 mg ER 24 hr capsule Commonly known as: Effexor-XR Take 150 mg by mouth daily. What changed: Another medication with the same name was added. Make sure you understand how and when to take each. 150 mg Refills: 0 * venlafaxine 75 mg tablet Commonly known as: Effexor Take 1 tablet by mouth 2 times daily (with meals) for 14 days. What changed: You were already taking a medication with the same name, and this prescription was added. Make sure you understand how and when to take each. 75 mg Quantity: 28 tablet Refills: 0 * This list has 2 medication(s) that are the same as other medications prescribed for you. Read thedirections carefully, and ask your doctor or other care provider to review them with you. Continued medications, unchanged Dose Details acetaminophen 325 mg tablet Commonly known as: Tylenol Take 3 tablets by mouth every 6 hours as needed for Pain. 975 mg Quantity: 30 tablet Refills: 0 Acetylcysteine 600 mg capsule Commonly known as: NAC TAKE TWO CAPSULES BY MOUTH EVERY MORNING WITH TWO ADDITIONAL CAPSULES IN THE AFTERNOON/EARLY EVENING NEEDED FOR MOOD Refills: 0 busPIRone 10 mg tablet Commonly known as: Buspar Take 10 mg by mouth 2 times daily. 10 mg Refills: 0 LORazepam 0.5 mg tablet Commonly known as: Ativan Take 0.5 mg by mouth daily as needed. 0.5 mg Refills: 0 melatonin 5 mg tablet Take 5 mg by mouth daily as needed (for sleep). 5 mg Refills: 0 metFORMIN 500 mg tablet Commonly known as: Glucophage Take 2,000 mg by mouth Daily. 2,000 mg Refills: 0 multivitamin Tablet Commonly known as: THERAGRAN Take 1 tablet by mouth daily. 1 tablet Refills: 0 Pentips 32 gauge x 5/32 Needle USE 1 NEEDLE SUBCUTANEOUSLY ONCE DAILY DIRECTED Generic drug: insulin needles (disposable) Refills: 0 prazosin 1 mg capsule Commonly known as: Minipress Take 2 mg by mouth nightly. 2 mg Refills: 0 propranoloL 10 mg tablet Commonly known as: Inderal Take 10 mg by mouth 2 times daily. 10 mg Refills: 0 STOPPED Medications ibuprofen 400 mg tablet Commonly known as: Motrin topiramate 50 mg tablet Commonly known as: Topamax Victoza 3-Carlo 0.6 mg/0.1 mL (18 mg/3 mL) Pen Injector Generic drug: liraglutide Disposition: Home Allergies: Allergies Allergen Reactions Trazodone Other Reaction(s): Agitation Wellbutrin [Bupropion] Anxiety Outpatient Services/Studies: No discharge procedures on file. Scheduled Appointments: Future Appointments and Orders Future Appointments and Orders Future Appointments Provider Department Dept Phone 08/19/2023 12:[address]; Katherin Obando APRN General Surgery at [facility] [place] Arrive at: Cabin Outfitter Area [phone] Please dispose of unused excess opioids before your appointment or bring them with you to the appointment and we will help you dispose of them correctly. 11/18/2023 10:[address]; Katherin Obando APRN General Surgery at [facility] [place] Arrive at: Cabin Outfitter Area [phone] 01/25/2024 3:00 PM Lamar Alonzo MD Weight and Wellness at [facility] [place] Arrive at: Cabin Outfitter Area Instructions Given to Patient at Discharge: Patient Instructions Discharge Instructions - Bariatric Surgery NEW PRESCRIPTIONS: line construction superintendent at [facility] today: Lovenox, omeprazole, Zofran (ondansetron), liquid oxycodone, Miralax, Colace, immediate release venlafaxine (Effexor) HOME MEDICATION PLAN: Wait two weeks to start taking bariatric vitamins Changes: Venlafaxine XR (Effexor XR) is extended release and cannot be crushed/opened; it has been changed to immediate release venlafaxine for two, which may be cut in half or crushed. Ok to open, cut in half, or crush for 2 weeks: NAC, buspirone (Buspar), lorazepam (Ativan), prazosin (Minipress), propranolol (Inderal) Stop taking: ibuprofen, topiramate (Topamax), metformin, Victoza MEDICATIONS: For 2 WEEKS: LARGE pills (bigger than the size of a Skittle or M&M) must be crushed. Large capsules must be opened and put in applesauce or pudding. Please use the size template below to measure your pills. Pills that are the same size or smaller than the template below do not need to be crushed/opened Not all medications can be crushed. Check with your pharmacist if unsure. HOLD bariatric vitamins for 2 weeks after surgery (unless you have one that is chewable or liquid). Size Template: BARIATRIC SUPPORT TEAM CONTACT NUMBERS (Mon-Fri 8am - 5pm): General Surgery and Bariatric Surgery [phone] Bariatric Surgeons: Dillan Matta, Zehra [phone] Compensation Adjuster: [phone] Dietitians: [phone] Outside of regular business hours, including weekends and holidays: Ask for General Surgery resident montessori lead teacher [phone] Please note, this call will be answered by a resident, and they may not be able to return your call for several hours FOR EMERGENCIES: CALL 911 (trouble breathing, chest pain, rapid heart rate >120 beats per minuteor severe abdominal pain) CALL THE BARIATRIC TEAM FOR ANY OF THE FOLLOWING: Signs and symptoms of infection such as: Redness or swelling or new significant drainage from wounds Drainage or bleeding from wounds Fever over 101 degrees Fahrenheit, or shaking chills Persistent diarrhea or vomiting or inability to keep down food or fluids in a 24 hour period Signs / symptoms of a blood clot: leg swelling, redness, pain, shortness of breath Problems with urination or constipation, worsening abdominal pain not controlled with pain medication Any concerns you may have after your surgery Follow up Information: You have a surgical follow up appointment with The Bariatric Surgery Team in 3 weeks at the [facility] ([facility] [address], [facility] [place]). Future Appointments Date Time Provider Department Center 08/19/2023 12:30 PM Katherin Obando APRN [facility] [place]G [facility] [place] 11/18/2023 10:30 AM Katherin Obando APRN [facility] [place] [facility] [place] 01/25/2024 3:00 PM Lamar Alonzo MD [facility] [place] WEIGHT [facility] [place] [place] [facility] You have liquid dressing over your incisions, there is nothing to remove. You may shower 24 hours after surgery. When you shower, let soap and water run over incisions without scrubbing. Pat dry gently. Some bruising around your incisions is normal. Using ice packs will help minimize this swelling. No swimming or soaking in water (ie. hot tubs or baths) for two weeks. Your stitches will dissolve and do not need to be removed. ACTIVITY, LIFTING AND DRIVING: For laparoscopic surgery, there are no lifting restrictions. Lift when you feel comfortable to do so. Do not drive if you are taking narcotic pain medication. Wait at least two days after surgery to start driving (if not taking narcotic pain medication). When you are no longer taking narcotic pain medication and when it no longer causes pain to get in and out of the vehicle, you may drive when comfortable. DIET: Follow Stage II diet for two weeks. Keep a log of your intake, both for reminders to drink/eat, and to ask questions at your follow up. Daily goals are: 48-64 ounces of fluids and 60 grams of protein. CONSTIPATION: Your goal is at least 1 BM per day. Be sure you are meeting your fluid goals and moving/walking. Take 1 capful of Miralax daily (preferably at night) You can increase the dose as needed every 2-3 days (by adding on 1 capful either morning or night) without safety concerns, noting that individual tolerance becomes limited by loose stools and bloating with doses higher than 2 capfuls twice daily. Please call or send a [employer] message if you do not have a BM after 3 days. On days with loose stools, we recommend reducing Miralax to 1/2 capful daily, but continue to take Miralax every day. If you continue to be constipated after taking Miralax for 1-2 days after surgery, you may add in the following over the counter medication: Take one 100 mg capsule of Colace every day, up to twice daily. BLOOD CLOT PREVENTION: You DO meet scoring criteria and will be discharged on enoxaparin injections twice daily for 10 days after you go home to prevent blood clots. Be active, walk at least 4 times a day and do blood clotprevention exercises in your handbook on page 82. IF YOU ARE TREATED FOR OBSTRUCTIVE SLEEP APNEA: IMPORTANT - you MUST use your CPAP/ BIPAP after surgery while sleeping at night and also when napping during the day because some medications you may have been prescribed at discharge can decrease your breathing. Follow up with the Sleep Center if pressure seems to be too high. ULCER PREVENTION: IMPORTANT - starting the day after discharge, you must take acid suppressing medication for 3 MONTHS after surgery. This is taken to prevent ulcers at your surgical sites internally, even if you do not have heartburn. You will start taking Omeprazole 40 mg daily. Omeprazole capsules contain enteric-coated, delayed-release granules. It is ok to swallow this capsule, but if you choose, you can OPEN the capsules, sprinkle the enteric-coated granules on applesauce or yogurt. Alternatively, you may take the granules with apple juice, or swallow them quickly withwater. Follow any of these methods with additional water to ensure that you have swallowed the granu les completely. If your insurer does not cover omeprazole, or similar medications such as pantoprazole, you must purchase these medications over the counter. You will continue this after the initial 3 month course if you have heartburn or reflux GALLSTONE PREVENTION: If you have had your gallbladder REMOVED - you do not need this medication. PATIENTS WITH HIGH BLOOD PRESSURE: Monitor your blood pressure regularly at the same time every day. If you feel dizzy and have been drinking 48-64 ounces of fluid, have your blood pressure checked. If your blood pressure is low, call your primary care provider. Keep a log to bring to your PCP appointments. PATIENTS ON ANTI-DEPRESSANT OR MENTAL HEALTH MEDICATIONS: Do not stop or decrease your medications unless advised. Ongoing counseling is encouraged. PAIN MEDICATION: Your pain should lessen with each day out from surgery. Over the next couple of days you should be requiring less narcotic medication to control your pain, and eventually you will not need any at all. Take the medication exactly as it is prescribed and make sure to read all instructions that come with the medication. Take only as needed. You may adjunct your pain control using scheduled Tylenol (acetaminophen), use as directed. Do NOT use NSAIDS (ibuprofen, Motrin, Aleve, aspirin, naproxen, etc.) to adjunct your pain control. Opioids can slow reaction time, cause drowsiness or cloud judgement. You MUST NOT DRIVE while taking narcotic pain medication. Taking more than the prescribed amount of narcotic or combining with alcohol or drugs can cause youto stop breathing, leading to coma, brain damage or . Using this drug may cause addiction. While addiction is more common in people with a personal or family history of addiction, it can occur in anyone. Opioids are at risk of being diverted by anyone with access to your home. Opioids should be stored in a safe and secure place, such as a locked cabinet or safe. Unused opioids should be disposed of appropriately. They may be returned to a take-back location, or mixed with a small amount of water and poured over an undesirable waste such as used coffee grounds or cat litter. Opioid pain medications can cause significant constipation. You should use a stool softener such asMiralax to address this. OTHER MEANS FOR PAIN RELIEF: Learn deep breathing exercises or meditation to help you relax Reduce stress Your body produces natural endorphins from exercise which can help reduce pain. Even walking is considered exercise. Talk with your provider/surgical team about what exercises are appropriate for youto perform. You may use a heating pad or apply ice to the painful area unless specifically discouraged by the surgical team. Find ways to distract yourself from the pain. MEDICATIONS TO AVOID FOR TWO MONTHS AFTER SURGERY: Discontinue anti-inflammatory non-steroidal medications, such as Advil, Aleve, ibuprofen, naproxen,etc. Refer to Medications that may increase the risk of bleeding in your handbook. If you do take aspirin for your heart or to prevent strokes, continue as prescribed. WOMEN OF CHILDBEARING AGE: Fertility may increase with weight loss. Avoid for 18-24 months after bariatric surgery. Condoms alone are not acceptable as a form of control. Do not take control pills for the first month after surgery. MANAGEMENT OF DIABETES MELLITUS AFTER BARIATRIC SURGERY: IMPORTANT to check blood sugars four times a day, fasting blood sugars, 2 hours after meals and as needed when feeling unwell. If the Diabetes Team saw you during your hospital stay, they have listed specific recommendations elsewhere in your discharge paperwork. Please refer to their specific diabetes care recommendations. Patients on oral diabetic medication: If blood sugar is over 200 on more than 3 checks, call your primary care physician or diabetic specialist for recommendations. For patients on insulin and oral diabetic medications: If blood sugar is over 200 on 3 checks, call your primary care doctor or diabetic specialist for recommendations. Follow up with primary care provider or specialist managers in 1-2 weeks in order to adjust your changing diabetes treatment requirements. VITAMIN AND MINERAL SUPPLEMENTATION: START at 2 weeks post surgery Vitamin B12 500 mcg pill daily Complete multivitamin w/ minerals One pill twice daily. If a bariatric specific multivitamin, follow the package directions Calcium Calcium citrate 600 mg with vitamin D 400 units twice a day between meals. Iron with vitamin C Take iron as instructed per Handbook - (only if you have anemia, iron deficiency or regular menses) FOLLOW-UP CARE: It is IMPORTANT to see your Primary Care Physician or PCP within 10-14 days after surgery for woundcheck and vital signs check, and to discuss specific medical management as referenced above. You should follow up with your surgeon and dietitian at 3-4 weeks after surgery. You will follow up with the dietitian and Bariatric nurse practitioner at 4, 12, 18, and 24 months,then yearly for life. General Instructions None Future Appointments and Orders Future Appointments and Orders Future Appointments Provider Department Dept Phone 08/19/2023 12:[address]; Katherin Obando APRN General Surgery at [facility] – [place] Arrive at: Cabin Outfitter Area [phone] Please dispose of unused excess opioids before your appointment or bring them with you to the appointment and we will help you dispose of them correctly. 11/18/2023 10:[address]; Katherin Obando APRN General Surgery at [facility] [place] Arrive at: Cabin Outfitter Area 01/25/2024 3:00 PM Lamar Alonzo MD Weight and Wellness at [facility] [place] Arrive at: Cabin Outfitter Area Signed: LO [facility] Bariatric Surgery 2:49 PM 07/29/23 Service pager: [phone] Primary Chelsey Physician: Keena Rosales APRN [address] / [facility] [id number] documented in this encounter Discharge Instructions * Patient Instructions* Silvia Espinoza PA - 07/28/2023 12:46 PM EST Images from the original note were not included. Discharge Instructions - Bariatric Surgery NEW PRESCRIPTIONS: line construction superintendent at [facility] today: Lovenox, omeprazole, Zofran (ondansetron), liquid oxycodone, Miralax, Colace, immediate release venlafaxine (Effexor) HOME MEDICATION PLAN: Wait two weeks to start taking bariatric vitamins Changes: Venlafaxine XR (Effexor XR) is extended release and cannot be crushed/opened; it has been changed to immediate release venlafaxine for two, which may be cut in half or crushed. Ok to open, cut in half, or crush for 2 weeks: NAC, buspirone (Buspar), lorazepam (Ativan), prazosin (Minipress), propranolol (Inderal) Stop taking: ibuprofen, topiramate (Topamax), metformin, Victoza MEDICATIONS: For 2 WEEKS: LARGE pills (bigger than the size of a Skittle or M&M) must be crushed. Large capsules must be opened and put in applesauce or pudding. Please use the size template below to measure your pills. Pills that are the same size or smaller than the template below do not need to be crushed/opened Not all medications can be crushed. Check with your pharmacist if unsure. HOLD bariatric vitamins for 2 weeks after surgery (unless you have one that is chewable or liquid). Size Template: BARIATRIC SUPPORT TEAM CONTACT NUMBERS (Mon-Fri 8am - 5pm): General Surgery and Bariatric Surgery [phone] Bariatric Surgeons: Dillan Matta, Zehra [phone] Compensation Adjuster: [phone] Dietitians: [phone] Outside of regular business hours, including weekends and holidays: Ask for General Surgery resident montessori lead teacher [phone] Please note, this call will be answered by a resident, and they may not be able to return your call for several hours FOR EMERGENCIES: CALL 911 (trouble breathing, chest pain, rapid heart rate >120 beats per minuteor severe abdominal pain) CALL THE BARIATRIC TEAM FOR ANY OF THE FOLLOWING: Signs and symptoms of infection such as: Redness or swelling or new significant drainage from wounds Drainage or bleeding from wounds Fever over 101 degrees Fahrenheit, or shaking chills Persistent diarrhea or vomiting or inability to keep down food or fluids in a 24 hour period Signs / symptoms of a blood clot: leg swelling, redness, pain, shortness of breath Problems with urination or constipation, worsening abdominal pain not controlled with pain medication Any concerns you may have after your surgery Follow up Information: You have a surgical follow up appointment with The Bariatric Surgery Team in 3 weeks at the [facility] ([address], [facility] [place]). Future Appointments Date Time Provider Department Center 08/19/2023 12:30 PM Katherin Obando APRN [facility] [place] [place] 11/18/2023 10:30 AM Katherin Obando APRN [facility] [place] [facility] [place] 01/25/2024 3:00 PM Lamar Alonzo MD [facility] [place] WE[facility] [place] [place] [facility] You have liquid dressing over your incisions, there is nothing to remove. You may shower 24 hours after surgery. When you shower, let soap and water run over incisions without scrubbing. Pat dry gently. Some bruising around your incisions is normal. Using ice packs will help minimize this swelling. No swimming or soaking in water (ie. hot tubs or baths) for two weeks. Your stitches will dissolve and do not need to be removed. ACTIVITY, LIFTING AND DRIVING: For laparoscopic surgery, there are no lifting restrictions. Lift when you feel comfortable to do so. Do not drive if you are taking narcotic pain medication. Wait at least two days after surgery to start driving (if not taking narcotic pain medication). When you are no longer taking narcotic pain medication and when it no longer causes pain to get in and out of the vehicle, you may drive when comfortable. DIET: Follow Stage II diet for two weeks. Keep a log of your intake, both for reminders to drink/eat, and to ask questions at your follow up. Daily goals are: 48-64 ounces of fluids and 60 grams of protein. CONSTIPATION: Your goal is at least 1 BM per day. Be sure you are meeting your fluid goals and moving/walking. Take 1 capful of Miralax daily (preferably at night) You can increase the dose as needed every 2-3 days (by adding on 1 capful either morning or night) without safety concerns, noting that individual tolerance becomes limited by loose stools and bloating with doses higher than 2 capfuls twice daily. Please call or send a [employer] message if you do not have a BM after 3 days. On days with loose stools, we recommend reducing Miralax to 1/2 capful daily, but continue to take Miralax every day. If you continue to be constipated after taking Miralax for 1-2 days after surgery, you may add in the following over the counter medication: Take one 100 mg capsule of Colace every day, up to twice daily. BLOOD CLOT PREVENTION: You DO meet scoring criteria and will be discharged on enoxaparin injections twice daily for 10 days after you go home to prevent blood clots. Be active, walk at least 4 times a day and do blood clotprevention exercises in your handbook on page 82. IF YOU ARE TREATED FOR OBSTRUCTIVE SLEEP APNEA: IMPORTANT - you MUST use your CPAP/ BIPAP after surgery while sleeping at night and also when napping during the day because some medications you may have been prescribed at discharge can decrease your breathing. Follow up with the Sleep Center if pressure seems to be too high. ULCER PREVENTION: IMPORTANT - starting the day after discharge, you must take acid suppressing medication for 3 MONTHS after surgery. This is taken to prevent ulcers at your surgical sites internally, even if you do not have heartburn. You will start taking Omeprazole 40 mg daily. Omeprazole capsules contain enteric-coated, delayed-release granules. It is ok to swallow this capsule, but if you choose, you can OPEN the capsules, sprinkle the enteric-coated granules on applesauce or yogurt. Alternatively, you may take the granules with apple juice, or swallow them quickly withwater. Follow any of these methods with additional water to ensure that you have swallowed the granu les completely. If your insurer does not cover omeprazole, or similar medications such as pantoprazole, you must purchase these medications over the counter. You will continue this after the initial 3 month course if you have heartburn or reflux GALLSTONE PREVENTION: If you have had your gallbladder REMOVED - you do not need this medication. PATIENTS WITH HIGH BLOOD PRESSURE: Monitor your blood pressure regularly at the same time every day. If you feel dizzy and have been drinking 48-64 ounces of fluid, have your blood pressure checked. If your blood pressure is low, call your primary care provider. Keep a log to bring to your PCP appointments. PATIENTS ON ANTI-DEPRESSANT OR MENTAL HEALTH MEDICATIONS: Do not stop or decrease your medications unless advised. Ongoing counseling is encouraged. PAIN MEDICATION: Your pain should lessen with each day out from surgery. Over the next couple of days you should be requiring less narcotic medication to control your pain, and eventually you will not need any at all. Take the medication exactly as it is prescribed and make sure to read all instructions that come with the medication. Take only as needed. You may adjunct your pain control using scheduled Tylenol (acetaminophen), use as directed. Do NOT use NSAIDS (ibuprofen, Motrin, Aleve, aspirin, naproxen, etc.) to adjunct your pain control. Opioids can slow reaction time, cause drowsiness or cloud judgement. You MUST NOT DRIVE while taking narcotic pain medication. Taking more than the prescribed amount of narcotic or combining with alcohol or drugs can cause youto stop breathing, leading to coma, brain damage or . Using this drug may cause addiction. While addiction is more common in people with a personal or family history of addiction, it can occur in anyone. Opioids are at risk of being diverted by anyone with access to your home. Opioids should be stored in a safe and secure place, such as a locked cabinet or safe. Unused opioids should be disposed of appropriately. They may be returned to a take-back location, or mixed with a small amount of water and poured over an undesirable waste such as used coffee grounds or cat litter. Opioid pain medications can cause significant constipation. You should use a stool softener such asMiralax to address this. OTHER MEANS FOR PAIN RELIEF: Learn deep breathing exercises or meditation to help you relax Reduce stress Your body produces natural endorphins from exercise which can help reduce pain. Even walking is considered exercise. Talk with your provider/surgical team about what exercises are appropriate for youto perform. You may use a heating pad or apply ice to the painful area unless specifically discouraged by the surgical team. Find ways to distract yourself from the pain. MEDICATIONS TO AVOID FOR TWO MONTHS AFTER SURGERY: Discontinue anti-inflammatory non-steroidal medications, such as Advil, Aleve, ibuprofen, naproxen,etc. Refer to Medications that may increase the risk of bleeding in your handbook. If you do take aspirin for your heart or to prevent strokes, continue as prescribed. WOMEN OF CHILDBEARING AGE: Fertility may increase with weight loss. Avoid for 18-24 months after bariatric surgery. Condoms alone are not acceptable as a form of control. Do not take control pills for the first month after surgery. MANAGEMENT OF DIABETES MELLITUS AFTER BARIATRIC SURGERY: IMPORTANT to check blood sugars four times a day, fasting blood sugars, 2 hours after meals and as needed when feeling unwell. If the Diabetes Team saw you during your hospital stay, they have listed specific recommendations elsewhere in your discharge paperwork. Please refer to their specific diabetes care recommendations. Patients on oral diabetic medication: If blood sugar is over 200 on more than 3 checks, call your primary care physician or diabetic specialist for recommendations. For patients on insulin and oral diabetic medications: If blood sugar is over 200 on 3 checks, call your primary care doctor or diabetic specialist for recommendations. Follow up with primary care provider or specialist managers in 1-2 weeks in order to adjust your changing diabetes treatment requirements. VITAMIN AND MINERAL SUPPLEMENTATION: START at 2 weeks post surgery Vitamin B12 500 mcg pill daily Complete multivitamin w/ minerals One pill twice daily. If a bariatric specific multivitamin, follow the package directions Calcium Calcium citrate 600 mg with vitamin D 400 units twice a day between meals. Iron with vitamin C Take iron as instructed per Handbook - (only if you have anemia, iron deficiency or regular menses) FOLLOW-UP CARE: It is IMPORTANT to see your Primary Care Physician or PCP within 10-14 days after surgery for woundcheck and vital signs check, and to discuss specific medical management as referenced above. You should follow up with your surgeon and dietitian at 3-4 weeks after surgery. You will follow up with the dietitian and Bariatric nurse practitioner at 4, 12, 18, and 24 months,then yearly for life. documented in this encounter Medications at Time of Discharge Medication Sig Dispensed Refills Start Date End Date melatonin 5 mg tablet Take 5 mg [...] mg by mouth daily as needed. 09/12/2019 venlafaxine (Effexor) 75 mg tablet Take 1 tablet by mouth 2 times daily (with meals) for 14 days. 28 tablet 07/28/2023 08/11/2023 enoxaparin (Lovenox) 40 mg/0.4 mL Syringe Inject 0.4 mLs subcutaneously 2 times daily for 10 days. 8 mL 07/28/2023 08/07/2023 omeprazole (PriLOSEC) [address] capsule Take 1 capsule by mouth daily for 90 days. 90 capsule 07/28/2023 10/26/2023 docusate sodium (Colace) 100 mg capsule Take 1 capsule by mouth 2 times daily as needed for Constipation. 07/28/2023 11/18/2023 polyethylene glycoL (Miralax) 17 gram/dose Powder Take 17 g by mouth daily. 07/28/2023 11/18/2023 ondansetron ODT (Zofran-ODT) 4 mg disintegrating tablet Take 1 tablet by mouth every 8 hours as needed for Nausea. 20 tablet 07/28/2023 11/18/2023 oxyCODONE (Roxicodone) 5 mg/5 mL Solution Take 5 mLs by mouth every 6 hours as needed for Pain. 40 mL 07/28/2023 11/18/2023 metFORMIN (Glucophage) 500 mg Tablet Take 2,000 mg by mouth Daily. 11/18/2023 Pentips 32 gauge x 5/32 Needle USE 1 NEEDLE SUBCUTANEOUSLY ONCE DAILY DIRECTED 07/30/2022 11/18/2023 prazosin (Minipress) 1 mg Capsule Take 2 mg by mouth nightly. 07/22/2022 11/18/2023 propranoloL (Inderal) 10 mg Tablet Take 5 mg by mouth daily. 06/30/2022 05/04/2024 venlafaxine (EFFEXOR-XR) 150 mg Capsule, Sust. Release 24 hr Take 150 mg by mouth daily. 10/17/2019 11/18/2023 documented as of this encounter Progress Notes * Emelia Mcgraw RN - 07/28/2023 1:49 PM EST All relevant discharge milestones have been met by the patient. After Visit Summary and discharge teaching reviewed with the the patient and family. IV access has been discontinued. All personal Belongings have been returned to the patient/family upon their departure from the unit. Patient has beendischarged to home. The patient has been discharged without VNA services. Patient is discharged with Instructions and prescriptions. Patient and family verified understanding of all discharge instructions. Patient is discharged via wheelchair to discharge area Entrance 2. * Manoj Stout MD - 07/27/2023 8:31 PM EST Post-Operative Check René Wayne is a 37 y.o. male s/p Procedure(s): @LAPAROSCOPIC GASTROPLASTY W/ LA[facility] EGD, UPPER GI ENDOSCOPY ([facility] 2.09) S: No nausea/vomiting, chest pain, SOB, pain well controlled, offers no complaints. Has been OOB and voided w/o issue. O: Temp: [36.3 ??C (97.3 ??F)] Heart Rate: -- Resp: [20] BP: (155-165)/(93-102) SpO2: [95 %] Heart Rate from SpO2: [75 bpm-104 bpm] I/O last 3 completed shifts: In: 1140 [P.O.:240; I.V.:900] Out: 7 [Blood:7] No intake/output data recorded. Recent Results (from the past 24 hour(s)) POCT Glucose Result Value Ref Range POC Glucose 104 65 - 199 mg/dL Physical Exam Gen: A0x3, NAD, resting comfortably CVS: RRR, no murmurs/rubs/gallops Resp: CTAB, breathing comfortably on RA Abd: soft, appropriately tender, nondistended. Incisions CDI Ext: SCDs in place, WWP AP Laceyavel Wayne is a 37 y.o. male w/ hx of HTN, NIDDM, and SUDHA, Class 3 severe obesity who is s/p LRNYGB currently in stable condition and recovering well - Continue bariatric stage 1 diet, mIVF, and multimodal analgesia - Home meds tonight as ordered - CPAP per home settings. Please page w/ questions or concerns. Manoj Stout MD 07/27/2023 * Althea Keller RN - 07/27/2023 12:25 PM EST 1225: break coverage done, vss, patient resting, denies pain and nausea * Rfuina Patten RN - 07/27/2023 11:51 AM EST 1143 Pt arrived to PACU01 from OR. Connected to monitor, alarms set and reviewed. Airway maintained. 6 abdominal lap sites open to air and CDI. Pt reporting minimal relief with nausea and 7/10 abdominal pain. VSS. 1300 Received report from [facility] Shipley after break coverage. 1415 Report given to [facility] Duron to assume care of pt. Family at bedside. Lunch brought to unit. documented in this encounter H&P Notes * Jacob Gupta MD - 07/27/2023 7:04 AM EST Bariatric Surgery Pre-operative Interval H&P Planned Procedure: laparoscopic Lauren-en-Y gastric bypass René Wayne is a 37 y.o. male who has elected to proceed with the above operation after participating in the bariatric surgery program. He reports no interval change in his overall health sincehis last bariatric program clinic visit on 07/06/23 - please see clinic note for further details. VITALS: BP (!) 183/97 Pulse 68 Temp 36.4 ??C (97.5 ??F) (Temporal) Resp 20 Ht 180.3 cm (5' 11) Wt (!) 232.6 kg (512 lb 14.4 oz) SpO2 99% BMI 71.54 kg/m?? EXAM: Gen: NAD CV: regular rate Pulm: unlabored respirations on RA Consent signed previously in clinic. All questions answered. Proceed with planned operation. Jacob Gupta MD [id number] 07/27/2023 7:04 AM documented in this encounter Miscellaneous Notes * Plan of Care - Emelia Mcgraw RN - 07/28/2023 1:49 PM EST Problem: Pain Acute Goal: Acceptable Pain Control and Functional Ability Outcome: Outcome (s) achieved Problem: Fall Injury Risk Goal: Absence of Fall and Fall-Related Injury Outcome: Outcome (s) achieved * Initial Assessments - Radha Wilson RN - 07/28/2023 1:35 PM EST Office of Care Management Initial Assessment/Discharge Note Radha Wilson RN reviewed record and discussed patient with Care Team. Source of Information: Team, bedside nurse, medical record, and Chart Review Introduced self/reviewed role; services accepted. Admitted From: Home Reason for Hospitalization: s/p laparoscopic gastroplasty with lauren-en-y and EGD Past medical History: History reviewed. No pertinent past medical history. Hospitalizations Within the Past 30 Days: Current Decision-Making Capacity: Self If AD's have not been completed the following surrogate would be surrogate decision maker per [place] surrogate decision making law. (Only good for 180 days) Any patient receiving care in [place] must abide by [place] law. The hierarchy for surrogate decision making is: (a) Patient???s spouse or civil union partner unless there is a divorce proceeding, separation agreement, or restraining order limiting that person???s relationship with the patient. (b) Any adult son or daughter of the patient. (c) Either parent of the patient. (d) Any adult brother or sister of the patient. (e) Any adult grandchild of the patient. (f) Any grandparent of the patient. (g) Any adult aunt, uncle, niece, or nephew of the patient. (h) A close friend of the patient. (i) The agent with financial power of printing screen assembler or a conservator appointed in accordance with RSA 464-A. (j) The guardian of the patient???s estate. Advance Care Planning: Attempt Cardiopulmonary Resuscitation - Inpatient <no information> -Advanced Directive: Other (No AD on file.) Current DME: none Home Address listed as: [address] [place] [id number] Social & Family Supports: All names listed below confirmed with patient as current and correct Extended Emergency Contact Information Primary Emergency Contact: Cherelle Reaves [facility] Mobile Relation: Other Substance Use/Abuse listed: Social History Tobacco Use Smoking Status Former Types: Cigarettes Smokeless Tobacco Never Tobacco Comments Rare cigarette in high school 0 No problems reported 1-2 Low level 3-5 Moderate level 6-8 Substantial level 9- 10 Severe level 0 to 7 points: Low risk 8 to 15 points: Medium risk 16 to 19 points: High risk 20 to 40 points: Addiction likely Other Pertinent/Service Specific Information: none Health/Prescription Coverage: Primary Insurance: [place] Payor[place] / Plan[place] PRIMARY CARE PLUS / Product Type: *No Product type* / Secondary Insurance: N/A ; Prescription Coverage: Yes Preferred Pharmacy: Primary Care Provider listed: Keena Rosales, [facility] [phone] Potential Needs for Transition of Care: none Agency Referrals: Not Applicable Transportation: no concerns Transportation Anticipated: private Concerns to be Addressed: no discharge needs identified Assessment: Patient is admitted to MIS service for s/p laparoscopic gastroplasty with lauren-en-y andEGD Plan: Discharge home without services. A member of the Care Management team will continue to monitor progress, follow for continuity of care and assist with transition of care planning. GENE Lucio, eeg tech of Care Management Pager [phone] * Plan of Care - Lola Ackerman RN - 07/27/2023 5:24 PM EST OUTCOME EVALUATION NOTE: OUTCOME SUMMARY: Patient is alert and oriented times four with no signs of respiratory distress. Patient is on ROOM AIR. Patient reports moderate pain this shift. PRN and scheduled medications were administered. Patient ambulatory, independent. Patient tolerated oral intake; no nausea or vomiting noted this shift. No critical LABS were reported. IV site remains patent, intact, clean and dry. Fluids infusing. Patient and/or Family updated on care plans for the shift. Patients verbalized the plan is to return home when medically cleared and stable. PLAN MOVING FORWARD: Monitor overnight for pain control, diet tolerability, mobility INDIVIDUALIZED FALL PREVENTION INTERVENTIONS: Patient remained free from falls this shift. Non skids socks remained in place; while patient out of bed. Side rails up times 2-3. Patient remains on palmer-bed. Room cleaned and remains free from clutter. All equipment and side rails cleaned at least once this shift. CPG GOAL OUTCOME EVALUATION: Problem: Adult Inpatient Plan of Care Goal: Plan of Care Review Outcome: Outcome (s) achieved Goal: Patient-Specific Goal (Individualized) Outcome: Outcome (s) achieved Goal: Absence of Hospital-Acquired Illness or Injury Outcome: Outcome (s) achieved Goal: Optimal Comfort and Wellbeing Outcome: Outcome (s) achieved Goal: Readiness for Transition of Care Outcome: Outcome (s) achieved * Op Note - Terri Garcia MD - 07/27/2023 8:32 AM EST [facility] – [place] Operative Note Patient Name: René Wayne : [id number] MR#: [id number] Case Date: 07/27/2023 Surgeon: Surgeon(s) and Role: * Terri Garcia MD - Primary * Jacob Gupta MD - Fellow - Assisting Preoperative diagnosis: Obesity Postoperative diagnosis: Obesity Procedure(s) (LRB): @LAPAROSCOPIC GASTROPLASTY W/ LAUREN-EN-Y CONSTRUCTION ([facility] 29.4) (N/A) EGD, UPPER GI ENDOSCOPY ([facility] 2.09) (N/A) Findings: Enlarged but smooth and pliable liver. Negative leak test. Omentum in likely supraumbilical hernia - left in situ Anesthesia: General Estimated Blood Loss: 7 cc Specimens removed during surgery: None Drains: None Surgical Closure: Primary Closure - skin incision is completely closed without any wires, chrissie, drains or other devices Disposition: awakened from anesthesia, extubated and taken to the recovery room in a stable condition, having suffered no apparent untoward event. Condition: doing well without problems (Please see the Surgical Encounter Summary for any Implant and Specimen details pertinent to this patient.) HPI/Surgical Indications: This 37 y.o. male presented to the Bariatric Program with a history of weight-related problems including significant weight-related comorbidities. He meets the NIH criteria for gastric bypass. The risks and benefits of the procedure were explained and he chose to undergo this procedure laparoscopically. Description of procedure: The patient was brought back to the operating room and placed in supine position. IV antibiotics were infused and pneumoboots were placed. He received Lovenox in the preop holding area. Under generalanesthesia and endotracheal intubation, the patient was prepped and draped in the supine position. After injection with 0.25% marcaine, a small incision was made approximately 15 cm below the xiphoid from the left of midline. The abdomen was then entered using the optiview trocar system using an 11-mm port. The abdomen was then insufflated to 15 mm Hg without difficulty. A 45-degree telescope was inserted, and under direct vision, two 5-mm ports were placed in the left upper quadrant forming the first arm of a V with the scope at the apex. A 5-mm port was placed approximately 15-cm along the right costal margin, through which a liver retractor was placed and used to elevate the left lobe of the liver, thus exposing the hiatal region. This was fixed in good position using the mechanical arm. A 5-mm port was placed approximately 10 cm along the right costal margin and a 12- mm port was placed approximately 4 cm below this. Bilateral laparoscopic TAP blocks were placed using 20 cc of 0.25% Marcaine on each side. We created a small window along the vasculature of the lesser curve, approximately 5 cm from the hiatus. Eventually, the vasculature was from the lesser curve and the posterior, lesser sac was entered. We freed the hiatal region up of some attachments to the diaphragm, thus exposing the left alejandrina. There was no significant hiatal hernia. A firing of an endo-ADRIANNE 60 stapler with a purple load in a transverse direction across the stomach was performed. The stapler was then fired multiple times with culp loads until a small narrow pouch was created. The pouch accommodated a volume of approximately 20 cc to 30 cc. The patient was then placed into some Trendelenburg position. The omentum and transverse colon reflected cephalad. The ligament of Treitz was identified and dissection was carried along approximately 40 cm from the ligament of Treitz. A small window was made in the small bowel mesentery and a stapler was introduced through this to create a firing of the stapler and divide the small bowel. The harmonic scalpel was used to divide the mesentery for a Lauren limb. At a point approximately 150 cm, the distal bowel was chosen to create the qxin-fu-bnxy jejunojejunostomy. The duodenal, afferent limb was approximated to the side wall of the jejunum at the 150-cm richar. Enterotomies were made in both and a single firing of an EndoGIA culp load was used to create anastomosis. The resultant defect was sewn in two layers of running 3-0 v loc suture. A split was made in the omentum using the harmonic scalpel just above the transverse colon and the Lauren limb fed through this. Two stay stitches in the side wall of the Lauren limb were approximated to the end of the gastric pouch. An enterotomy was made in the gastric pouch and the jejunostomy and a partial-length firing of the ADRIANNE-45 culp stapler was used to create the anastomosis between this pouch and the jejunum. The resultant enterotomy defect was closed with a running 3-0 v loc suture in two layers with a 30 Togolese Bougie (blunt-tipped) in place. The Bougie was then removed and the Lauren limb clamped with a bowel clamp. The endoscope was introduced and the pouch and anastomosis was insufflated under saline. Inspection of the anastomosis did not reveal any leak. It appeared to be patent and allowed passage of an endoscope without resistance. The mesenteric defect behind the J-J anastomosis was then closed with a running 3-0 vloc suture. Penaloza's defect below the transverse colon was also closed with a running 3-0 vloc. Inspection of the abdomen revealed excellent hemostasis. All ports were then removed under direct vision and the skin was closed with running subcuticular 4-0 Monocryl suture, followed by Dermabond. The patient returned to the Recovery Room in stable conditions. Sponge, instrument and needle counts were correct. I was the attending physician and I was present and scrubbed throughout the procedure. No qualifiedresident was available. Surgical Infection Prevention Bundle Used? N/A documented in this encounter Plan of Treatment Upcoming Encounters Date Type Department Care Team (Late st Contact Info) Description 08/17/2024 11:00 AM EST Office [place] [address] Lamar Alonzo MD [facility] DR [facility] [place] [address] documented as of this encounter Goals Goal Patient Goal Type Associated Problems Recent Progress Patient-Stated? Author Follow your diet plan as advised by your turbine attendant Courtney Owens RD Note: Images from the original note were not included. Nutrtion Goals: 04/25/23 TF Nutrition Goals: 03/28/23 TF Review and continue to work on the Eating Behaviors for success post gastric bypass Nutrition Goals updated today: 10/22/22 TF 1. Try Bolthouse dressing to reduce calories and increase in place [place] 2. Work towards reducing total calroeus gradually to aim for [id number] kcals (aim to reduce each meal by [...] Procedure Name Priority Date/Time Associated Diagnosis Comments HEMOGRAM Routine 07/28/2023 4:07 AM EST DIFFERENTIAL, AUTOMATED Routine 07/28/2023 4:07 AM EST CBC (WITH DIFF) Routine 07/28/2023 4:07 AM EST PHOSPHORUS Routine 07/28/2023 4:07 AM EST MAGNESIUM Routine 07/28/2023 4:07 AM EST BASIC METABOLIC PANEL Routine 07/28/2023 4:07 AM EST Upper GI Endoscopy, Diagnostic ([id number]) 07/27/2023 7:49 AM EST Obesity Lap Gastric Bypass/Lauren-En-Y ([id number]) 07/27/2023 7:49 AM EST Obesity POCT GLUCOSE Routine 07/27/2023 6:53 AM EST UPPER GI ENDOSCOPY Routine 07/27/2023 6: 30 AM EST LAPAROSCOPIC GASTROPLASTY, G\SURG Routine 07/27/2023 6:30 AM EST documented in this encounter Results * (ABNORMAL) Differential, Automated (07/28/2023 4:07 AM EST) Neutrophil % 72.2 % [facility] Neutrophil Absolute 7.64(H) 1.70 - 6.10 x10(3)/mc L [facility] Lymph % 19.9 % [facility] Lymphocytes Abs 2.1 0.9 - 3.2 x10(3)/mc L [facility] Monocyte % 6.9 % [facility] Monocyte Abs 0.7 0.3 - 0.9 x10(3)/ L [facility] Eos % 0.3 % [facility] Eosinophils Abs 0.0 0.0 - 0.4 x10(3)/ L [facility] Basophil % 0.2 % [facility] Baso Absolute 0.0 0.0 - 0.1 x10(3)/ L [facility] Immature Gran % 0.50 % [facility] Comment: Immature granulocytes(IG's)percentage and absolute count will include metamyelocytes, myelocytes, and promyelocytes. Blood smears from CBCs yielding IG's will be scanned manually for concordance. If this scan disagrees with the automated IG or if promyelocytes are noted, a manual differential will be performed. Immature Gran Absolute 0.05(H) 0.00 - 0.04 x10(3)/ L [facility] Blood 07/28/2023 4:07 AM EST 07/28/2023 4:11 AM EST Narrative Resulting Agency Comment Spec In Lab Jacob Gupta MD HEMATOLOGY ORDERABLE S Performing Organization Address City/State/[facility] Co de Phone Number [facility] [place] [address] * (ABNORMAL) Hemogram (07/28/2023 4:07 AM EST) White Blood Cell 10.6(H) 4.0 - 9.5 x10(3)/ L [facility] Red Blood Cell 4.54(L) 4.58 - 5.54 x10(6)/ L [facility] Hemoglobin 12.7(L) 13.7 - 16.5 g/dL [facility] Hematocrit 37.7(L) 40.5 - 48.5 % [facility] Mean Cell Volume 83.0 82.9 - 93.1 fL [facility] Mean Cell Hemoglobin 28.0 27.5 - 32.1 pg [facility] Mean Cell Hemoglobin Concentration 33.7 32.0 - 35.7 g/dL [facility] Platelet 284 145 - 357 x10(3)/mc L [facility] RDW Standard Deviation 43.3 36.0 - 45.0 fL [facility] RDW coefficient of variation 14.3(H) 11.4 - 13.8 % [facility] Mean Platelet Volume 8.4 7.6 - 12.9 fL [facility] NRBC% auto 0.0 % [facility] NRBC Absolute 0.000 0.000 - 0.000 x10(3)/mc L [facility] Blood 07/28/2023 4:07 AM EST 07/28/2023 4:11 AM EST Narrative Resulting Agency Comment Spec In Lab Jacob Gupta MD HEMATOLOGY ORDERABLE S Performing Organization Address City/[facility] Co de Phone Number [facility] [place] [address] * Phosphorus (07/28/2023 4:07 AM EST) Phosphorus 3.5 2.5 - 4.5 mg/dL [facility] Blood 07/28/2023 4:07 AM EST 07/28/2023 4:11 AM EST Narrative Resulting Agency Comment Spec In Lab Jacob Gupta MD CHEMISTRY ORDERABLES Performing Organization Address City/[facility] Co de Phone Number [facility] [place] [address] * Magnesium (07/28/2023 4:07 AM EST) Magnesium 0.87 0.69 - 1.07 mmol/L [facility] Blood 07/28/2023 4:07 AM EST 07/28/2023 4:11 AM EST Narrative Resulting Agency Comment Spec In Lab Jacob Gupta MD CHEMISTRY ORDERABLES Performing Organization Address City/[facility]/ZIP Co de Phone Number [facility] [place] [address] * Basic Metabolic Panel (non-fasting) (07/28/2023 4:07 AM EST) Glucose 111 65 - 199 mg/dL [facility] Comment:Diabetes: >=200 mg/d L plus symptoms Blood Urea Nitrogen 13 10 - 20 mg/dL [facility] Creatinine 0.85 0.80 - 1.50 mg/dL [facility] Sodium 141 135 - 145 mmol/L [facility] Potassium 3.6 3.5 - 5.0 mmol/L [facility] Comment: Please note: ??Patients with WBC >100,000 may have falsely elevated Potassium levels. ??For accurate Potassium quantification in these patients send serum separator tube (gold top) for subsequent determinations. ??Contact the Clinical Chemistry Laboratory if there are any questions. Chloride 107 98 - 107 mmol/L [facility] Carbon Dioxide 23 22 - 31 mmol/L [facility] Anion Gap 11 5 - 15 mmol/L [facility] Calcium 9.2 8.5 - 10.5 mg/dL [facility] Est Glomerular Filtration Rate 115 >=60 mL/min/1. 73 m?? [facility] Comment: This patient's estimated GFR was [...] and symptoms in addition to eGFR. Blood 07/28/2023 4:07 AM EST 07/28/2023 4:11 AM EST Narrative Resulting Agency Comment Spec In Lab Jacob Gupta MD CHEMISTRY ORDERABLES [facility] [place] [address] * POCT Glucose (07/27/2023 6:53 AM EST) Glucose, POC 104 65 - 199 mg/dL [facility] Comment: Supplemental ranges: <140 mg/dL before meals <180 mg/dL all other times of the day Blood 07/27/2023 6:53 AM EST 07/27/2023 6:53 AM EST Terri Garcia MD POINT OF CARE TEST ORDERABLES [facility] [place] [address] documented in this encounter Visit Diagnoses Not on filedocumented in this encounter Admitting Diagnoses Diagnosis Morbid obesity documented in this encounter Administered Medications Inactive Administered Medications - up to 3 most recent administrations Medication Order MAR Action Action Date Dose Rate Site acetaminophen (Tylenol) (32.02 mg/mL) oral liquid 650 mg 650 mg, Oral, EVERY 6 HOURS SCHEDULED, First dose on Tue07/28/23 at 0000, Until Discontinued, Administer starting post-op day one, once tolerating PO Maximum dose of acetaminophen is 3,000 mg from all sources in 24 hours. When ordered for pain, acetaminophen should be given even when other ordered pain medications are indicated., Routine Given 07/28/2023 11:23 AM EST 650 mg Given 07/28/2023 5:07 AM EST 650 mg Given 07/27/2023 11:07 PM EST 650 mg Acetylcysteine (NAC) Capsule 1,200 mg 1,200 mg, Oral, DAILY, First dose on Tue07/28/23 at 0900, Until Discontinued, Open capsule Given 07/28/2023 9:00 AM EST 1,200 mg BUpivacaine (pf) (Marcaine) (2.5 mg/mL) 0.25% injection PRN, Starting on Tue07/27/23 at 1045, Until Tue07/28/23 at 1550, Intra-Operative (Intra-Procedure), Routine Given 07/27/2023 10:45 AM EST 60 mLs 19- Surgical Site busPIRone (Buspar) tablet 10 mg 10 mg, Oral, 2 TIMES DAILY, First dose on Tue07/27/23 at 2100, Until Discontinued, Crush tablet, Routine Given 07/28/2023 8:10 AM EST 10 mg Given 07/27/2023 9:06 PM EST 10 mg enoxaparin (Lovenox) (40 mg/0.4 mL) subcutaneous injection 40 mg 40 mg, Subcutaneous, EVERY 12 HOURS SCHEDULED (2 times per day), First dose on Tue07/27/23 at 2100, Until Discontinued, Routine Given 07/28/2023 8:08 AM EST 40 mg Given 07/27/2023 9:06 PM EST 40 mg ketorolac (Toradol) (15 mg/mL) injection 15 mg 15 mg, Intravenous, EVERY 8 HOURS, 3 doses, First dose (after last reorder) on Tue07/28/23 at 0015, Last dose on Tue07/28/23 at 1615, Routine Given 07/28/2023 8:09 AM EST 15 mg Given 07/27/2023 11:53 PM EST 15 mg labetaloL (Normodyne) (5 mg/mL) injection solution 10 mg 10 mg, Intravenous, EVERY 4 HOURS PRN, Starting on Tue07/27/23 at 1536, Until Tue07/28/23 at 1550, High Blood Pressure, For SBP >170, hold for HR <60, Routine lactated ringers infusion 1,000 mL, at 125 mL/hr, Intravenous, CONTINUOUS, Starting on Tue07/27/23 at 1200, Until Tue07/28/23 at 1550 New Bag 07/28/2023 5:09 AM EST 1,000 mLs 125 m L/hr New Bag 07/27/2023 9:09 PM EST 1,000 mLs 125 mL/hr New Bag 07/27/2023 1:05 PM EST 1,000 mLs 125 mL/hr ondansetron (pf) (Zofran) (2 mg/mL) injection 4 mg 4 mg, Intravenous, EVERY 8 HOURS SCHEDULED, First dose on Tue07/27/23 at 1400, Until Discontinued, For nausea please use ondansetron as the first choice; prochlorperazine as a second choice. Call provider if not effective. Given 07/28/2023 5: 08 AM EST 4 mg Given 07/27/2023 9:06 PM EST 4 mg oxyCODONE (Roxicodone) (1 mg/mL) oral liquid 5 mg 5 mg, Oral, EVERY 6 HOURS PRN, Starting on Tue07/27/23 at 1139, Until Tue07/28/23 at 1550, Pain, Moderate-Severe pain 6-10, Routine Given 07/28/2023 8:08 AM EST 5 m g Given 07/27/2023 10:47 PM EST 5 mg Given 07/27/2023 1:21 PM EST 5 mg pantoprazole (Protonix) injection 40 mg 40 mg, Intravenous, DAILY, First dose on Tue07/27/23 at 1330, Until Discontinued, Reconstitute with 10 mL of normal saline to a concentration of 4 mg/mL and inject slowly over 2 minutes. Reconstitute with 10 mL of normal saline to a concentration of 4 mg/mL and inject slowly over 2 minutes., Routine Given 07/28/2023 8:08 AM EST 4 0 mg Given 07/27/2023 1:19 PM EST 40 mg prazosin (Minipress) capsule 2 mg 2 mg, Oral, NIGHTLY, First dose on Tue07/27/23 at 2100, Until Discontinued, Open capsule, Routine Given 07/27/2023 9:06 PM EST 2 mg propranoloL (Inderal) tablet 10 mg 10 mg, Oral, 2 TIMES DAILY, First dose on Tue07/27/23 at 2100, Until Discontinued, Crush tablet, Routine Given 07/28/2023 8:10 AM EST 10 mg Given 07/27/2023 9:06 PM EST 10 mg sodium chloride 0.9 % (flush) (BD PosiFlush Normal Saline 0.9) flush 5 mL 5 mL, Intravenous, 2 TIMES DAILY, First dose on Tue07/27/23 at 1330, Until Discontinued, Recovery (Recovery-Hospital Unit), Routine Given 07/28/2023 8:11 AM EST 5 mLs Given 07/27/2023 9:06 PM EST 5 mLs Given 07/27/2023 1:18 PM EST 5 mLs venlafaxine (Effexor) tablet 75 mg 75 mg, Oral, 2 TIMES DAILY WITH MEALS, First dose on Tue07/28/23 at 0800, Until Discontinued, Crush tablet, Routine Given 07/28/2023 8:12 AM EST 75 mg documented in this encounter Active and Recently Administered Medications Times are shown in EST. Scheduled Medication Order 07/26/2023 07/27/2023 07/28/2023 acetaminophen (Tylenol) (32.02 mg/mL) oral liquid 650 mg 650 mg, Oral, EVERY 6 HOURS SCHEDULED, First dose on Lashae 07/28/23 at 0000, Until Discontinued, Administer starting post-op day one, once tolerating PO Maximum dose of acetaminophen is 3,000 mg from all sources in 24 hours. When ordered for pain, acetaminophen should be given even when other ordered pain medications are indicated., Routine 2307 (Given - Provider: Alvin Louis Jr., RN) 0507 (Given - Provider: Alvin Louis Jr., RN)1123 (Given - Provider: Emelia Mcgraw RN) acetaminophen (Tylenol) tablet 975 mg (COMPLETED) 975 mg, Oral, ONCE, 1 dose, On Tue07/27/23 at 0715, Maximum dose of acetaminophen is 4,000 mg from all sources in 24 hours. When ordered for pain, acetaminophen should be given even when other ordered pain medications are indicated., Day of Surgery (Day of Procedure), Routine 07 (Given - Provider: oRsa Jacob RN) Acetylcysteine (NAC) Capsule 1,200 mg 1,200 mg, Oral, DAILY, First dose on Lashae 07/28/23 at 0900, Until Discontinued, Open capsule 0900 (Given - Provider: Emelia Mcgraw RN) busPIRone (Buspar) tablet 10 mg 10 mg, Oral, 2 TIMES DAILY, First dose on Tue07/27/23 at 2100, Until Discontinued, Crush tablet, Routine 2106 (Given - Provider: Alvin Louis Jr., RN) 0810 (Given - Provider: Emelia Mcgraw RN) ceFAZolin (Ancef) 3 g vial attach to sodium chloride 0.9% 100 mL Mini-Bag Plus (COMPLETED) 3 g, Intravenous, ONCE, 1 dose, On Tue07/27/23 at 0715, Administer over 30 Minutes, Day of Surgery (Day of Procedure), Indication for (Active or Suspected): Prophylaxis 0808 (New Bag - Provider: Skyler Rodríguez MD) celecoxib (CeleBREX) capsule 400 mg (COMPLETED) 400 mg, Oral, ONCE, 1 dose, On Tue07/27/23 at 0715, Day of Surgery (Day of Procedure), Routine 0715 (Given - Provider: Rosa Jacob RN) enoxaparin (Lovenox) (40 mg/0.4 mL) subcutaneous injection 40 mg (COMPLETED) 40 mg, Subcutaneous, ONCE, 1 dose, On Tue07/27/23 at 0715, To be given in preop area, Day of Surgery (Day of Procedure), Routine 07 (Given - Provider: Rosa Jacob RN) enoxaparin (Lovenox) (40 mg/0.4 mL) subcutaneous injection 40 mg 40 mg, Subcutaneous, EVERY 12 HOURS SCHEDULED (2 times per day), First dose on Tue07/27/23 at 2100, Until Discontinued, Routine 2105 (Given - Provider: Alvin Louis Jr., RN) 0808 (Given - Provider: Emelia Mcgraw, MAXIMUS) ketorolac (Toradol) (15 mg/mL) injection 15 mg 15 mg, Intravenous, EVERY 8 HOURS, 3 doses, First dose (after last reorder) on Lashae 07/28/23 at 0015, Last dose on Lashae 07/28/23 at 1615, Routine 2353 (Given - Provider: Alvin Louis Jr., RN) 08 (Given - Provider: Emelia Mcgraw RN) ondansetron (pf) (Zofran) (2 mg/mL) injection 4 mg 4 mg, Intravenous, EVERY 8 HOURS SCHEDULED, First dose on Tue07/27/23 at 1400, Until Discontinued, For nausea please use ondansetron as the first choice; prochlorperazine as a second choice. Call provider if not effective. 1400 (Not Given - Provider: Rufina Patten RN - Reason: See comment - Comment: pt receive 12mg intraop)2105 (Given - Provider: Alvin Louis Jr., RN) 0508 (Given - Provider: Alvin Louis Jr., RN) pantoprazole (Protonix) injection 40 mg 40 mg, Intravenous, DAILY, First dose on Tue07/27/23 at 1330, Until Discontinued, Reconstitute with 10 mL of normal saline to a concentration of 4 mg/mL and inject slowly over 2 minutes. Reconstitute with 10 mL of normal saline to a concentration of 4 mg/mL and inject slowly over 2 minutes., Routine 1319 (Given - Provider: uRfina Patten RN) 0808 (Given - Provider: Emelia Mcgraw RN) prazosin (Minipress) capsule 2 mg 2 mg, Oral, NIGHTLY, First dose on Tue07/27/23 at 2100, Until Discontinued, Open capsule, Routine 210 (Given - Provider: Alvin Louis Jr., RN) propranoloL (Inderal) tablet 10 mg 10 mg, Oral, 2 TIMES DAILY, First dose on Tue07/27/23 at 2100, Until Discontinued, Crush tablet, Routine 2106 (Given - Provider: Alvin Louis Jr., RN) 0810 (Given - Provider: Emelia Mcgraw RN) sodium chloride 0.9 % (flush) (BD PosiFlush Normal Saline 0.9) flush 5 mL 5 mL, Intravenous, 2 TIMES DAILY, First dose on Tue07/27/23 at 1330, Until Discontinued, Recovery (Recovery-Hospital Unit), Routine 1318 (Given - Provider: Rufina Patten RN)2106 (Given - Provider: Alvin Louis Jr., RN) 0811 (Given - Provider: Emelia Mcgraw RN) venlafaxine (Effexor) tablet 75 mg 75 mg, Oral, 2 TIMES DAILY WITH MEALS, First dose on Lashae 07/28/23 at 0800, Until Discontinued, Crush tablet, Routine 1700 (Canceled Entry - Provider: Lola Ackerman RN - Reason: See comment - Comment: pending pharm review) 0812 (Given - Provider: Emelia Mcgraw RN) Continuous Medication Order 07/26/2023 07/27/2023 07/28/2023 lactated ringers infusion (CANCELED) 1,000 mL, at 100 mL/hr, Intravenous, CONTINUOUS, Starting on Tue07/27/23 at 0715, Until Tue07/27/23 at 1139, Day of Surgery (Day of Procedure) 0816 (New Bag - Provider: Skyler Rodríguez MD)1028 (Anesthesia Volume Adjustment - Provider: Terra Miller CRNA)1141 (Stopped - Provider: Skyler Rodríguez MD) lactated ringers infusion 1,000 mL, at 125 mL/hr, Intravenous, CONTINUOUS, Starting on Tue07/27/23 at 1200, Until Lashae 07/28/23 at 1550 1305 (New Bag - Provider: Rufina Patten RN)2109 (New Bag - Provider: Alvin Louis Jr., RN) 0509 (New Bag - Provider: Alvin Louis Jr., RN) PRN Medication Order 07/26/2023 07/27/2023 07/28/2023 BUpivacaine (pf) (Marcaine) (2.5 mg/mL) 0.25% injection (CANCELED) PRN, Starting on Tue07/27/23 at 1045, Until Lashae 07/28/23 at 1550, Intra-Operative (Intra-Procedure), Routine 1045 (Given - Provider: Terri Garcia MD) HYDROmorphone (Dilaudid) (2 mg/mL) multi-dose injection solution 0.4 mg (CANCELED)(Linked Group 1) 0.4 mg, Intravenous, EVERY 10 MIN PRN, 4 doses, Starting on Tue07/27/23 at 1138, Until Tue07/27/23 at 1413, Pain, For Mild to Moderate Pain (1-5 out of 10), Hold for respiratory rate less than 10 per minute. Maximum dose 3 mg over one hour including administrations in the OR. If multiple pain medications are ordered, start with HYDROmorphone and use fentaNYL for breakthrough pain., PACU Recovery, Routine 1154 (Given - Provider: Rufina Patten RN)1206 (See Alternative - Provider: Rufina Patten RN) HYDROmorphone (Dilaudid) (2 mg/mL) multi-dose injection solution 0.6 mg (CANCELED)(Linked Group 1) 0.6 mg, Intravenous, EVERY 10 MIN PRN, 4 doses, Starting on Tue07/27/23 at 1138, Until Tue07/27/23 at 1413, Pain, For Moderate to Severe Pain (6-10 out of 10), Hold for respiratory rate less than 10 per minute. Maximum dose 4 mg over one hour including administrations in the OR. If multiple pain medications are ordered, start with HYDROmorphone and use fentaNYL for breakthrough pain., PACU Recovery, Routine 1154 (See Alternative - Provider: Rufina Patten RN)1206 (Given - Provider: Rufina Patten RN) labetaloL (Normodyne) (5 mg/mL) injection solution 10 mg 10 mg, Intravenous, EVERY 4 HOURS PRN, Starting on Tue07/27/23 at 1536, Until Lashae 07/28/23 at 1550, High Blood Pressure, For SBP >170, hold for HR <60, Routine lidocaine (Xylocaine) 1% (10 mg/mL) injection 3 mg 3 mg (0.3 mL), Subcutaneous, ONCE PRN, 1 dose, Starting on Tue07/27/23 at 1310, Until Lashae 07/28/23 at 1550, for discomfort with PIV insertion, Recovery (Recovery-Hospital Unit), Routine oxyCODONE (Roxicodone) (1 mg/mL) oral liquid 5 mg 5 mg, Oral, EVERY 6 HOURS PRN, Starting on Tue07/27/23 at 1139, Until Lashae 07/28/23 at 1550, Pain, Moderate-Severe pain 6-10, Routine 1321 (Given - Provider: Rufina Patten RN)2247 (Given - Provider: Alvin Louis Jr., RN) 0808 (Given - Provider: Emelia Mcgraw RN) prochlorperazine (Compazine) (5 mg/mL) injection 10 mg 10 mg, Intravenous, EVERY 6 HOURS PRN, Starting on Tue07/27/23 at 1310, Until Lashae 07/28/23 at 1550, Nausea, Vomiting, For nausea please use ondansetron as the first choice; prochlorperazine as a second choice. Call provider if not effective., Routine sodium chloride 0.9 % (flush) (BD PosiFlush Normal Saline 0.9) flush 5-20 mL 5-20 mL, Intravenous, EVERY 1 MIN PRN, Starting on Tue07/27/23 at 1310, Until Lashae 07/28/23 at 1550, flush, Flush pertains to all indwelling lines. Flush per protocol found in the job aid using the link provided on this medication record., Recovery (Recovery-Hospital Unit), Routine No Frequency Medication Order 07/26/2023 07/27/2023 07/28/2023 ketorolac (Toradol) (15 mg/mL) injection (COMPLETED) 1 dose, Starting on Tue07/27/23 at 1645, Until Tue07/27/23 at 1647, LOLA ACKERMAN: cabinet override 7130 (Given - Provider: Karma Ackerman RN - Comment: only gave 15mg. misread order) Linked Groups Order Group 1: HYDROmorphone (Dilaudid) (2 mg/mL) multi-dose injection solution 0.4 mg (CANCELED)Jump to med 0.4 mg, Intravenous, EVERY 10 MIN PRN, 4 doses, Starting on Tue07/27/23 at 1138, Until Tue07/27/23 at 1413, Pain, For Mild to Moderate Pain (1-5 out of 10), Hold for respiratory rate less than 10 per minute. Maximum dose 3 mg over one hour including administrations in the OR. If multiple pain medications are ordered, start with HYDROmorphone and use fentaNYL for breakthrough pain., PACU Recovery, Routine Or HYDROmorphone (Dilaudid) (2 mg/mL) multi-dose injection solution 0.6 mg (CANCELED)Jump to med 0.6 mg, Intravenous, EVERY 10 MIN PRN, 4 doses, Starting on Tue07/27/23 at 1138, Until Tue07/27/23 at 1413, Pain, For Moderate to Severe Pain (6-10 out of 10), Hold for respiratory rate less than 10 per minute. Maximum dose 4 mg over one hour including administrations in the OR. If multiple pain medications are ordered, start with HYDROmorphone and use fentaNYL for breakthrough pain., PACU Recovery, Routine documented in this encounter Care Teams Varnish Maker Relationship Specialty Start Date End Date Keena Rosales APRN [address] [place] [address] PCP - General Family Medicine 11/04/21 documented as of this encounter
--- OUTSIDE RECORDS SUMMARY | 2024-07-13 14:55 | XMS_ITS | Encounter Summary ---
Author Organization [facility] Address [facility] [place] [address] Care Team Providers Care Manufacturer Representative Name Role Phone Keena Rosales APRN Primary Care Provider [phone] Encounter Details Date Type Department Care Team (Latest Contact Info) Description 04/16/2023 Travel Social History Tobacco Use Types Packs/Day [...] place to sleep or slept in a alf (including now)? No 10/14/2022 Sex and Gender Information Value Date Recorded Sex Assigned at Not on file Gender Identity Not on file Sexual Orientation Not on file documented as of this encounter Plan of Treatment Upcoming Encounters Date Type Department Care Team (Late st Contact Info) Description 08/17/2024 11:00 AM EST Office [place] [address] Lamar Alonzo MD [facility] [address] [facility] [address] documented as of this encounter Goals Goal Patient Goal Type Associated Problems Recent Progress Patient-Stated? Author Follow your diet plan as advised by your communications lead Diet Courtney Mccallum RD Note: Images from the original note were not included. Nutrtion Goals: 04/25/23 TF Nutrition Goals: 03/28/23 TF Review and continue to work on the Eating Behaviors for success post gastric bypass Nutrition Goals updated today: 10/22/22 TF 1. Try Bolthouse dressing to reduce calories and increase in place [place] 2. Work towards reducing total calroeus gradually to aim for [id number] kcals (aim to reduce each meal by [...] on filedocumented in this encounter Care Teams Manufacturer Representative Relationship Specialty Start Date End Date Keena Rosales APRN [address] [place] [address] PCP - General Family Medicine 11/04/21 documented as of this encounter
--- OUTSIDE RECORDS SUMMARY | 2024-07-13 14:55 | XMS_ITS | Encounter Summary ---
Author Organization [facility] [place] [address] Care Team Providers Care Toe Laster Name Role Phone Keena Rosales APRN Primary Care Provider [phone] Encounter Details Date Type Department Care Team (Late st Contact Info) Description 05/05/2023 Telephone General Surgery at [facility] [place] [phone] Kasia Sadler Social History Tobacco Use Types Packs/Day Years [...] place to sleep or slept in a residential (including now)? No 10/14/2022 Sex and Gender Information Value Date Recorded Sex Assigned at Not on file Gender Identity Not on file Sexual Orientation Not on file documented as of this encounter Miscellaneous Notes * Telephone Encounter - Kasia Sadler - 05/05/2023 10:16 AM EDT Attempted to reach patient phone numbers on file no longer valid so sent [employer] message for patient to call us. documented in this encounter Plan of Treatment Upcoming Encounters Date Type Department Care Team (Late st Contact Info) Description 08/17/2024 11:00 AM EST Office [place] [address] Lamar Alonzo MD [facility] [address] [place] [address] documented as of this encounter Goals Goal Patient Goal Type Associated Problems Recent Progress Patient-Stated? Author Follow your diet plan as advised by your development director Courtney Owens RD Note: Images from the original note were not included. Nutrtion Goals: 04/25/23 TF Nutrition Goals: 03/28/23 TF Review and continue to work on the Eating Behaviors for success post gastric bypass Nutrition Goals updated today: 10/22/22 TF 1. Try Bolthouse dressing to reduce calories and increase in place Ranch 2. Work towards reducing total calroeus gradually to aim for 9188-7795 kcals (aim to reduce each meal by [...] on filedocumented in this encounter Care Teams Toe Laster Relationship Specialty Start Date End Date Keena Rosales APRN [address] [place] [address] PCP - General Family Medicine 11/04/21 documented as of this encounter
--- OUTSIDE RECORDS SUMMARY | 2024-07-13 14:55 | XMS_ITS | Encounter Summary ---
Author Organization [facility] Address [facility] [place] [address] Care Team Providers Care Diagnostic Radiologist Name Role Phone Keena Rosales APRN Primary Care Provider [phone] Encounter Details Date Type Department Care Team (Latest Contact Info) Description 05/12/2023 Travel Social History Tobacco Use Types Packs/Day [...] AM EST Office [place] [address] Lamar Alonzo MD [facility] DR [address]REG[address] [place] [address] documented as of this encounter Goals Goal Patient Goal Type Associated Problems Recent Progress Patient-Stated? Author Follow your diet plan as advised by your general service technician Diet Courtney Mccallum RD Note: Images from the original note were not included. Nutrtion Goals: 04/25/23 TF Nutrition Goals: 03/28/23 TF Review and continue to work on the Eating Behaviors for success post gastric bypass Nutrition Goals updated today: 10/22/22 TF 1. Try Bolthouse dressing to reduce calories and increase in place Ranch 2. Work towards reducing total calroeus gradually to aim for 3652-2601 kcals (aim to reduce each meal by [...] on filedocumented in this encounter Care Teams Diagnostic Radiologist Relationship Specialty Start Date End Date Keena Rosales APRN [address] [place] [address] PCP - General Family Medicine 11/04/21 documented as of this encounter
--- OUTSIDE RECORDS SUMMARY | 2024-07-13 14:55 | XMS_ITS | Encounter Summary ---
Author Organization [facility] [place] [address] Care Team Providers Care County Judge Name Role Phone Keena Rosales APRN Primary Care Provider [phone] Reason for Visit * Auth/Cert (Routine) Specialty Diagnoses / Procedures Referred By Alma t Referred To Contact Diagnoses Obesity Procedures PRO LAP GASTRIC BYPASS/LAUREN-EN-Y PRO UPPER GI ENDOSCOPY, DIAGNOSTIC @LAPAROSCOPIC GASTROPLASTY W/ LAUREN-EN-Y CONSTRUCTION (WRVU 29.4) EGD, UPPER GI ENDOSCOPY (WRVU 2.09) Terri Garcia MD [facility] [place] [address] [facility] Referral ID Status Reason Start Date Expiration Date Visits Re quested Visits Authorized [id number] 1 1 Encounter Details Date Type Department Care Team (Latest Contact Info) Description 07/27/2023 6:28 AM EST - 07/28/2023 1:49 PM [facility] Hospital [place] [address] Terri Garcia MD [facility] [address] [place] [address] Discharge Disposition: Home Social History Tobacco Use [...] Sign Reading Time Taken Comments Blood Pressure 139/87 07/28/2023 3:53 AM EST Pulse 71 07/27/2023 12:30 PM EST Temperature 37 ??C (98.6 ??F) 07/28/2023 8:00 AM EST Respiratory Rate 18 07/28/2023 8:00 AM EST Oxygen Saturation 96% 07/28/2023 8:00 AM EST Inhaled Oxygen Concentration - - [...] RD; Katherin Obando APRN General Surgery at [facility] Arrive at: Histologist Technologist Area [phone] Please dispose of unused excess opioids before your appointment or bring them with you to the appointment and we will help you dispose of them correctly. 11/18/2023 10:[address]; Katherin Obando APRN General Surgery at [facility] Arrive at: Histologist Technologist Area [phone] 01/25/2024 3:00 PM Lamar Alonzo MD Weight and Wellness at [facility] Arrive at: Histologist Technologist Area 4L [phone] Instructions Given to Patient at Discharge: Patient Instructions Discharge Instructions - Bariatric Surgery NEW PRESCRIPTIONS: supervisor carpenters at [facility] today: Lovenox, omeprazole, Zofran [...] - 5pm): General Surgery and Bariatric Surgery [phone] Bariatric Surgeons: Dillan Matta, Zehra [phone] Director Utilization Management: [phone] Dietitians: [phone] Outside of regular business hours, including weekends and holidays: Ask for General Surgery resident international broadcast music librarian [phone] Please note, this call will be answered [...] Surgery Team in 3 weeks at the [facility] (Histologist Technologist 4L, [facility]). Future Appointments Date Time Provider Department Center 08/19/2023 12:30 PM Katherin Obando APRN [facility] 11/18/2023 10:30 AM Katherin Obando APRN [facility] 01/25/2024 3:00 PM Lamar Alonzo MD [facility] WEIGHT [facility] WOUND CARE You have liquid dressing over [...] twice daily. Please call or send a [employer] message if you do not have a [...] Follow up with primary care provider or internet ecommerce specialist in 1-2 weeks in order to adjust [...] RD; Katherin Obando APRN General Surgery at [facility] Arrive at: Histologist Technologist Area [phone] Please dispose of unused excess opioids before your appointment or bring them with you to the appointment and we will help you dispose of them correctly. 11/18/2023 10:[address]; Katherin Obando APRN General Surgery at [facility] Arrive at: Histologist Technologist Area 01/25/2024 3:00 PM Lamar Alonzo MD Weight and Wellness at [facility] Arrive at: Histologist Technologist Area Signed: LO Godfrey Bariatric Surgery 2:49 PM 07/29/23 Service pager: [phone] Primary Chelsey Physician: Keena Rosales APRN [address] / [facility] [address] documented in this encounter Discharge Instructions * Patient Instructions* Silvia Espinoza PA - 07/28/2023 12:46 PM EST Images from the original note were not included. Discharge Instructions - Bariatric Surgery NEW PRESCRIPTIONS: supervisor carpenters at [facility] today: Lovenox, omeprazole, Zofran [...] - 5pm): General Surgery and Bariatric Surgery [phone] Bariatric Surgeons: Dillan Matta, Zehra [phone] Director Utilization Management: [phone] Dietitians: [phone] Outside of regular business hours, including weekends and holidays: Ask for General Surgery resident international broadcast music librarian [phone] Please note, this call will be answered [...] Surgery Team in 3 weeks at the [facility] (Histologist Technologist 4, [facility]). Future Appointments Date Time Provider Department Center 08/19/2023 12:30 PM Katherin Obando APRN [facility] 11/18/2023 10:30 AM Katherin Obando APRN [facility] 01/25/2024 3:00 PM Lamar Alonzo MD [facility] WEIGHT [facility] WOUND CARE You have liquid dressing over [...] twice daily. Please call or send a [employer] message if you do not have a [...] Follow up with primary care provider or internet ecommerce specialist in 1-2 weeks in order to adjust [...] - 07/27/2023 8:31 PM EST Post-Operative Check Laceyavel Wayne is a 37 y.o. male s/p Procedure(s): @LAPAROSCOPIC GASTROPLASTY W/ LAUREN-EN-Y CONSTRUCTION (WRVU [...] CDI Ext: SCDs in place, WWP AP René Wayne is a 37 y.o. male w/ [...] patient resting, denies pain and nausea * Rufina Patten RN - 07/27/2023 11:51 AM EST [...] surrogate would be surrogate decision maker per [place] surrogate decision making law. (Only good for 180 days) Any patient receiving care in [place] must abide by [place] law. The hierarchy for surrogate decision making [...] (i) The agent with financial power of assistant attorney general or a conservator appointed in accordance with RSA 464-A. (j) The guardian of the patient???s estate. Advance Care Planning: Attempt Cardiopulmonary Resuscitation - Inpatient <no information> -Advanced Directive: Other (No AD on file.) Current DME: none Home Address listed as: [address] [place] [id number] Social & Family Supports: All names listed below confirmed with patient as current and correct Extended Emergency Contact Information Primary Emergency Contact: Cherelle Reaves [facility] Mobile Relation: Other Substance Use/Abuse listed: Social [...] Pharmacy: Primary Care Provider listed: Keena Rosales, SHUCKER [phone] Potential Needs for Transition of Care: none [...] with transition of care planning. GENE Lucio, full time paramedic of Care Management Pager [phone] * Plan of Care - Lola Ackerman [...] Garcia MD - 07/27/2023 8:32 AM EST [facility] Operative Note Patient Name: René Wayne : [id number] MR#: [id number] Case Date: 07/27/2023 Surgeon: Surgeon(s) and Role: [...] distal bowel was chosen to create the [id number] jejunojejunostomy. The duodenal, afferent limb was approximated [...] suture in two layers with a 30 Armenian Bougie (blunt-tipped) in place. The Bougie was [...] AM EST Office [place] [address] Lamar Alonzo MD [facility] DR [facility] [address] documented as of this encounter Goals Goal Patient Goal Type Associated Problems Recent Progress Patient-Stated? Author Follow your diet plan as advised by your motorcycle repairer Courtney Owens RD Note: Images from the original note were not included. Nutrtion Goals: 04/25/23 TF Nutrition Goals: 03/28/23 TF Review and continue to work on the Eating Behaviors for success post gastric bypass Nutrition Goals updated today: 10/22/22 TF 1. Try Bolthouse dressing to reduce calories and increase in place Ranch 2. Work towards reducing total calroeus gradually to aim for 6792-8637 kcals (aim to reduce each meal by [...] 4:07 AM EST Upper GI Endoscopy, Diagnostic (08405) 07/27/2023 7:49 AM EST Obesity Lap Gastric Bypass/Lauren-En-Y (71224) 07/27/2023 7:49 AM EST Obesity POCT GLUCOSE Routine 07/27/2023 6:53 AM EST UPPER GI ENDOSCOPY Routine 07/27/2023 6: 30 AM EST LAPAROSCOPIC GASTROPLASTY, G\SURG Routine 07/27/2023 6:30 AM EST documented in this encounter Results * (ABNORMAL) Differential, Automated (07/28/2023 4:07 AM EST) Neutrophil % 72.2 % [facility] Neutrophil Absolute 7.64(H) 1.70 - 6.10 x10(3)/mc L [facility] Lymph % 19.9 % [facility] Lymphocytes Abs 2.1 0.9 - 3.2 x10(3)/mc L [facility] Monocyte % 6.9 % [facility] Monocyte Abs 0.7 0.3 - 0.9 x10(3)/ L [facility] Eos % 0.3 % [facility] Eosinophils Abs 0.0 0.0 - 0.4 x10(3)/ L [facility] Basophil % 0.2 % [facility] Baso Absolute 0.0 0.0 - 0.1 x10(3)/mc L [facility] Immature Gran % 0.50 % [facility] Comment: Immature granulocytes(IG's)percentage and absolute count will include metamyelocytes, myelocytes, and promyelocytes. Blood smears from CBCs yielding IG's will be scanned manually for concordance. If this scan disagrees with the automated IG or if promyelocytes are noted, a manual differential will be performed. Immature Gran Absolute 0.05(H) 0.00 - 0.04 x10(3)/ L [facility] Blood 07/28/2023 4:07 AM EST 07/28/2023 4:11 AM EST Narrative Resulting Agency Comment Spec In Lab Jacob Gupta MD HEMATOLOGY ORDERABLE S Performing Organization Address City/State/[facility] Co de Phone Number [facility] [address] * (ABNORMAL) Hemogram (07/28/2023 4:07 AM EST) White Blood Cell 10.6(H) 4.0 - 9.5 x10(3)/mc L [facility] Red Blood Cell 4.54(L) 4.58 - 5.54 x10(6)/mc L [facility] Hemoglobin 12.7(L) 13.7 - 16.5 g/dL [facility] Hematocrit 37.7(L) 40.5 - 48.5 % [facility] Mean Cell Volume 83.0 82.9 - 93.1 fL [facility] Mean Cell Hemoglobin 28.0 27.5 - 32.1 pg [facility] Mean Cell Hemoglobin Concentration 33.7 32.0 - 35.7 g/dL [facility] Platelet 284 145 - 357 x10(3)/mc L [facility] RDW Standard Deviation 43.3 36.0 - 45.0 fL [facility] RDW coefficient of variation 14.3(H) 11.4 - 13.8 % [facility] Mean Platelet Volume 8.4 7.6 - 12.9 fL [facility] NRBC% auto 0.0 % [facility] NRBC Absolute 0.000 0.000 - 0.000 x10(3)/mc L [facility] Blood 07/28/2023 4:07 AM EST 07/28/2023 4:11 AM EST Narrative Resulting Agency Comment Spec In Lab Jacob Gupta MD HEMATOLOGY ORDERABLE S Performing Organization Address [facility] Co de Phone Number [facility] [place] [address] * Phosphorus (07/28/2023 4:07 AM EST) Phosphorus 3.5 2.5 - 4.5 mg/dL [facility] Blood 07/28/2023 4:07 AM EST 07/28/2023 4:11 AM EST Narrative Resulting Agency Comment Spec In Lab Jacob Gupta MD CHEMISTRY ORDERABLES Performing Organization Address [facility] de Phone Number [facility] [place] [address] * Magnesium (07/28/2023 4:07 AM EST) Magnesium 0.87 0.69 - 1.07 mmol/L [facility] Blood 07/28/2023 4:07 AM EST 07/28/2023 4:11 AM EST Narrative Resulting Agency Comment Spec In Lab Jacob Gupta MD CHEMISTRY ORDERABLES Performing Organization Address [facility] Co de Phone Number [facility] [place] [address] * Basic Metabolic Panel (non-fasting) (07/28/2023 4:07 AM EST) Glucose 111 65 - 199 mg/dL [facility] Comment:Diabetes: >=200 mg/d L plus symptoms Blood Urea Nitrogen 13 10 - 20 mg/dL [facility] Creatinine 0.85 0.80 - 1.50 mg/dL [facility] Sodium 141 135 - 145 mmol/L [facility] Potassium 3.6 3.5 - 5.0 mmol/L [facility] Comment: Please note: ??Patients with WBC >100,000 may have falsely elevated Potassium levels. ??For accurate Potassium quantification in these patients send serum separator tube (gold top) for subsequent determinations. ??Contact the Clinical Chemistry Laboratory if there are any questions. Chloride 107 98 - 107 mmol/L [facility] Carbon Dioxide 23 22 - 31 mmol/L [facility] Anion Gap 11 5 - 15 mmol/L [facility] Calcium 9.2 8.5 - 10.5 mg/dL [facility] Est Glomerular Filtration Rate 115 >=60 mL/min/1. 73 m?? [facility] Comment: This patient's estimated GFR [...] In Lab Jacob Gupta MD CHEMISTRY ORDERABLES [facility] [place] [address] * POCT Glucose (07/27/2023 6:53 AM EST) Glucose, POC 104 65 - 199 mg/dL [facility] Comment: Supplemental ranges: <140 mg/dL before meals <180 mg/dL all other times of the day Blood 07/27/2023 6:53 AM EST 07/27/2023 6:53 AM EST Terri Garcia MD POINT [place] [address] documented in this encounter Visit Diagnoses Diagnosis Morbid obesity- Primary documented in this encounter Admitting Diagnoses Diagnosis Morbid [...] Given 07/27/2023 11:07 PM EST 650 mg acetaminophen (Tylenol) tablet 975 mg 975 mg, Oral, ONCE, 1 dose, On Tue07/27/23 at 0715, Maximum dose of acetaminophen is 4,000 mg from all sources in 24 hours. When ordered for pain, acetaminophen should be given even when other ordered pain medications are indicated., Day of Surgery (Day of Procedure), Routine Given 07/27/2023 7:15 AM EST 975 mg Acetylcysteine (NAC) Capsule 1,200 mg 1,200 mg, Oral, DAILY, First dose on Tue07/28/23 at 0900, Until Discontinued, Open capsule Given 07/28/2023 9:00 AM EST 1,200 mg busPIRone (Buspar) tablet 10 mg 10 mg, Oral, 2 TIMES DAILY, First dose on Tue07/27/23 at 2100, Until Discontinued, Crush tablet, Routine Given 07/28/2023 8:10 AM EST 10 mg Given 07/27/2023 9:06 PM EST 10 mg celecoxib (CeleBREX) capsule 400 mg 400 mg, Oral, ONCE, 1 dose, On Tue07/27/23 at 0715, Day of Surgery (Day of Procedure), Routine Given 07/27/2023 7:15 AM EST 400 mg enoxaparin (Lovenox) (40 mg/0.4 mL) subcutaneous injection 40 mg 40 mg, Subcutaneous, ONCE, 1 dose, On Tue07/27/23 at 0715, To be given in preop area, Day of Surgery (Day of Procedure), Routine Given 07/27/2023 7:18 AM EST 40 mg Left Quadriceps enoxaparin (Lovenox) (40 mg/0.4 mL) subcutaneous injection 40 mg 40 mg, Subcutaneous, EVERY 12 HOURS SCHEDULED (2 times per day), First dose on Tue07/27/23 at 2100, Until Discontinued, Routine Given 07/28/2023 8:08 AM EST 40 mg Given 07/27/2023 9:06 PM EST 40 mg HYDROmorphone (Dilaudid) (2 mg/mL) multi-dose injection solution 0.4 mg 0.4 mg, Intravenous, EVERY 10 MIN PRN, [...] fentaNYL for breakthrough pain., PACU Recovery, Routine Given 07/27/2023 11:[address] 0.4 mg HYDROmorphone (Dilaudid) (2 mg/mL) multi-dose injection solution 0.6 mg 0.6 mg, Intravenous, EVERY 10 MIN PRN, [...] fentaNYL for breakthrough pain., PACU Recovery, Routine Given 07/27/2023 12:[address] 0.6 mg ketorolac (Toradol) (15 mg/mL) injection 15 mg 15 mg, Intravenous, EVERY 8 HOURS, 3 doses, First dose (after last reorder) on Tue07/28/23 at 0015, Last dose on Tue07/28/23 at 1615, Routine Given 07/28/2023 8:09 AM EST 15 mg Given 07/27/2023 11:53 PM EST 15 mg ketorolac (Toradol) (15 mg/mL) injection 1 dose, Starting on Tue07/27/23 at 1645, Until Tue07/27/23 at 1647, LOLA ACKERMAN: cabinet override Given 07/27/2023 4:47 PM EST 15 mg labetaloL (Normodyne) (5 [...] Day of Surgery (Day of Procedure), Routine 714 (Given - Provider: Rosa Jacob RN) Acetylcysteine (NAC) Capsule 1,200 mg 1,200 mg, Oral, DAILY, First dose on Tue07/28/23 at 0900, Until Discontinued, Open capsule 0900 [...] Procedure), Indication for (Active or Suspected): Prophylaxis 08 (New Bag - Provider: Skyler Rodríguez MD) celecoxib (CeleBREX) capsule 400 mg (COMPLETED) 400 mg, Oral, ONCE, 1 dose, On Tue07/27/23 at 0715, Day of Surgery (Day of Procedure), Routine 714 (Given - Provider: Rosa Jacob RN) enoxaparin [...] Lashae 07/28/23 at 0015, Last dose on Tue07/28/23 at 1615, Routine 2353 (Given - Provider: Alvin Louis Jr., RN) 0809 (Given - Provider: Emelia Mcgraw RN) ondansetron [...] 2 minutes., Routine 1319 (Given - Provider: Rufina Patten RN) 0808 (Given - Provider: Emelia [...] Routine 1318 (Given - Provider: Rufina Patten RN)210 (Given - Provider: Alvin Louis Jr., RN) [...] 6-10, Routine 1321 (Given - Provider: Rufina Patten, RN)2247 (Given - Provider: Alvin Louis Jr., RN) 0808 (Given - Provider: Emelia Mcgraw, [employer]) prochlorperazine (Compazine) (5 mg/mL) injection 10 mg [...] Tue07/27/23 at 1647, LOLA ACKERMAN: cabinet override 1647 (Given - Provider: Karma Ackerman RN - [...] Routine documented in this encounter Care Teams County Judge Relationship Specialty Start Date End Date Keena Rosales APRN [address] [place] [address] PCP - General Family Medicine 11/04/21 documented as of this encounter
--- OUTSIDE RECORDS SUMMARY | 2024-07-13 14:55 | XMS_ITS | Encounter Summary ---
Author Organization [facility] Address [facility] [place] [address] Care Team Providers Care Commodity Loan Clerk Name Role Phone Keena Rosales APRN Primary Care Provider [phone] [phone] Encounter Details Date Type Department Care Team (Latest Contact Info) Description 04/25/2023 9:00 AM EDT TH Visit (TeleHealth) [place] [address] Courtney Kennedy I, RD [facility] [place] [address] Class 3 severe obesity with serious comorbidity [...] on file documented as of this encounter Patient Instructions * Patient Instructions* Courtney Kennedy RD - 04/25/2023 9:00 AM EDT Images from the original note were not included. Goals Addressed This Visit's Progress Follow your diet plan as advised by your lubricator granulator Nutrtion Goals: 04/25/23 TF Nutrition Goals: 03/28/23 TF Review and continue to work on the Eating Behaviors for success post gastric bypass Nutrition Goals updated today: 10/22/22 TF 1. Try Bolthouse dressing to reduce calories and increase in place Ranch 2. Work towards reducing total calroeus gradually to aim for 5619-3118 kcals (aim to reduce each meal by [...] this encounter Progress Notes * Courtney Kennedy RD - 04/25/2023 9:00 AM EDT Nutrition Intervention for Weight Management Initial RD visit with ZENA Rocha 1985 Weight Today: Wt Readings from Last 3 Encounters: 04/22/23 (!) 222.6 kg (490 lb 12.8 oz) 03/28/23 (!) 218.6 kg (482 lb) 02/16/23 (!) 223.7 kg (493 lb 3.2 oz) BMI Readings from Last 3 Encounters: 04/22/23 67.95 kg/m?? 03/28/23 66.74 kg/m?? 02/16/23 68.29 kg/m?? Pertinent Meds: Victoza and Metformin and Topirimate Interview: Pt is pursuing Bariatric Surgery. Food Tracking: not at this time; tool not needed Typical Dietary Intake: B: 2 eggs, Keto yogurt and glass of almond milk L: salad with Grilled chicken D: Daniels burger cottage cheese and roasted broccoli S: Typical Beverages: [] coffee / tea [x] water - (total: [x] plain [] sugar-free additive [x] diet Powerade or occasional diet soda (understand need to be off of carbonation [] regular soda [] Juice or other sugar-sweetened [] Milk [] Alcohol - (How much? Appetite/Hunger: [] Poor appetite r/t [] Currently well-managed [x] Not managed (see interview) - I never feel full Bariatric eating behaviors Checked boxes are currently [...] drinking by 30 minutes on either side [] Sip rather than gulp - still working on this however this is improving [x] Eliminate diet or regular soda prior to surgery [x] Reduce coffee intake down to ~1 cup (caffeine) prior to surgery [x] Reduce alcohol, ideally avoid [x] No nicotine (STOP date, if applicable: Activity: [x] reviewed current goals; [] updated goals Barriers: none noted today Nutrition Goals updated today: Goals Addressed None Readiness for surgery summary: [] Needs additional dietary support to reach above goals; not ready for transition to surgical team. Follow-up plan below [x] Pre-Bariatric nutrition goals met; ready for transition to surgical team Monitor/Evaluate: [] Needs additional fuv scheduled with this publicity writer: No follow-ups on file. (OR) [] Currently scheduled for: [] 1st consecutive monthly nutrition visit [] 2nd consecutive monthly nutrition visit [] 3rd consecutive monthly nutrition visit (OR) [x] Patient has met requirement of 3 consecutive monthly nutrition visits Above determined to the best ability of this publicity writer. Patient will contact bariatric surgery team for any official determination about about scheduling and insurance requirements ( ) Thank you Courtney Kennedy MS, RD LD 30 minutes were spent in [id number] (virtual or in-person) contact during visit today documented in this encounter Plan of Treatment Upcoming Encounters Date Type Department Care Team (Late st Contact Info) Description 08/17/2024 11:00 AM EST Office [place] [address] Lamar Alonzo MD [facility] [address] documented as of this encounter Goals Goal Patient Goal Type Associated Problems Recent Progress Patient-Stated? Author Follow your diet plan as advised by your lubricator granulator Diet No Courtney Kennedy RD Note: Images from the original note were not included. Nutrtion Goals: 04/25/23 TF Nutrition Goals: 03/28/23 TF Review and continue to work on the Eating Behaviors for success post gastric bypass Nutrition Goals updated today: 10/22/22 TF 1. Try Bolthouse dressing to reduce calories and increase in place Ranch 2. Work towards reducing total calroeus gradually to aim for 0180-2439 kcals (aim to reduce each meal by [...] type documented in this encounter Care Teams Commodity Loan Clerk Relationship Specialty Start Date End Date Keena Rosales APRN [address] [place] [address] PCP - General Family Medicine 11/04/21 documented as of this encounter
--- OUTSIDE RECORDS SUMMARY | 2024-07-13 14:55 | XMS_ITS | Encounter Summary ---
Author Organization [facility] Address [facility] [place] [address] Care Team Providers Care Centrifugal Wax Molder Name Role Phone Keena Rosales APRN Primary Care Provider [phone] [phone] Encounter Details Date Type Department Care Team (Latest Contact Info) Description 07/06/2023 Travel Social History Tobacco Use Types Packs/Day [...] a group home (including now)? No 10/14/2022 Sex and Gender Information Value Date Recorded Sex Assigned at Not on file Gender Identity Not on file Sexual Orientation Not on file documented as of this encounter Plan of Treatment Upcoming Encounters Date Type Department Care Team (Late st Contact Info) Description 08/17/2024 11:00 AM EST Office [place] [address] Lamar Alonzo MD [facility] DR [facility] [place] [address] documented as of this encounter Goals Goal Patient Goal Type Associated Problems Recent Progress Patient-Stated? Author Follow your diet plan as advised by your director of customer service Diet Courtney Mccallum RD Note: Images from the original note were not included. Nutrtion Goals: 04/25/23 TF Nutrition Goals: 03/28/23 TF Review and continue to work on the Eating Behaviors for success post gastric bypass Nutrition Goals updated today: 10/22/22 TF 1. Try Bolthouse dressing to reduce calories and increase in place Ranch 2. Work towards reducing total calroeus gradually to aim for 3323-6086 kcals (aim to reduce each meal by [...] on filedocumented in this encounter Care Teams Centrifugal Wax Molder Relationship Specialty Start Date End Date Keena Rosales APRN [address] [place] [address] PCP - General Family Medicine 11/04/21 documented as of this encounter
--- OUTSIDE RECORDS SUMMARY | 2024-07-13 14:55 | XMS_ITS | Encounter Summary ---
Author Organization [facility] [place] [address] Care Team Providers Care Hand Bender Name Role Phone Keena Rosales APRN Primary Care Provider [phone] [phone] Encounter Details Date Type Department Care Team (Late st Contact Info) Description 05/03/2023 Notes Only [place] [address] Katherin Obando APRN [facility] [place] [address] Social History Tobacco Use Types Packs/Day Years Used Date Smoking Tobacco: Former Cigarettes Smokeless Tobacco: Never Comments:Rare cigarette in [employer] Overall Financial Resource Strain (CARDIA) [...] health care facility (including now)? No 10/14/2022 Sex and Gender Information Value Date Recorded Sex Assigned at Not on file Gender Identity Not on file Sexual Orientation Not on file documented as of this encounter Progress Notes * Katherin Obando APRN - 05/03/2023 3:52 PM EDT BARIATRIC SURGERY PROGRAM CASE REVIEW René Wayne is a 37 y.o. male. His primary care physician is Keena Rosales APRN. Referred by: Keena Rosales APRN Bariatric Surgery Program introductory meeting attendance: Yes Date: 05/31/22 Evaluation by a member of the [facility] Bariatric Surgery Program previously: No Case presentation by:Lamar Umanzor MD, Staff present at today's meeting: Bárbara Shahid MD, Measurement Superintendent, Terri Garcia MD, Katherin Obando APRN, Natalia Singh APRN, Nilda Gillis, PhD, MARTIN EstevesN, RN, Janina Grimaldo MD, Jacob Gupta MD, Lamar Umanzor MD, and Nelly Slaughter MS, RD. Reason for presentation: Pt with enlarged liver, assess ability to move forward with surgery. Additionally pt with hx of health anxiety, BMI 68 on Victoza and Topamax. Difficulty with meeting wt lossrequirement. Hypothalamic disregulation. He has green light to move forward from mental health perspective. Patient Active Problem List Diagnosis Code Anxiety F41.9 Acute cholecystitis K81.0 Class 3 severe obesity with serious comorbidity and body mass index (BMI) of 60.0 to 69.9 in adult E66.01, Z68.44 Hypertension I10 Hypertriglyceridemia E78.1 SUDHA on CPAP G47.33 Past Surgical History: Procedure Laterality Date PRO LAP, CHOLECYSTECTOMY/GRAPH N/A 11/14/2019 LAPAROSCOPIC CHOLECYSTECTOMY WITH CHOLANGIOGRAM (WRVU 11.47) performed by Onesimo Chaves MD at [facility] MAIN OR Plan of care: reviewed liver imaging, ok to proceed with surgical consult.. documented in this encounter Plan of Treatment Upcoming Encounters Date Type Department Care Team (Late st Contact Info) Description 08/17/2024 11:00 AM EST Office [place] [address] Lamar Alonzo MD [facility] [place] [address] documented as of this encounter Goals Goal Patient Goal Type Associated Problems Recent Progress Patient-Stated? Author Follow your diet plan as advised by your ela teacher Diet No Courtney Kennedy RD Note: Images [...] reducing total calroeus gradually to aim for 1381-1538 kcals (aim to reduce each meal by [...] on filedocumented in this encounter Care Teams Hand Bender Relationship Specialty Start Date End Date Keena Rosales APRN [address] [place] [address] PCP - General Family Medicine 11/04/21 documented as of this encounter
--- OUTSIDE RECORDS SUMMARY | 2024-07-13 14:55 | XMS_ITS | Encounter Summary ---
Author Organization [facility] [place] [address] Care Team Providers Care Civil Engineering Design Draftsperson Name Role Phone Keena Rosales APRN Primary Care Provider [phone] [phone] Reason for Visit * Auth/Cert (Routine) Specialty Diagnoses / Procedures Referred By Alma t Referred To Contact Diagnoses Obesity Procedures PRO LAP GASTRIC BYPASS/LAUREN-EN-Y PRO UPPER GI ENDOSCOPY, DIAGNOSTIC @LAPAROSCOPIC GASTROPLASTY W/ LAUREN-EN-Y CONSTRUCTION (WRVU 29.4) EGD, UPPER GI ENDOSCOPY (WRVU 2.09) Terri Garcia MD [facility] [place] [address] [facility] Referral ID Status Reason Start Date Expiration Date Visits Re quested Visits Authorized [id number] 1 1 Encounter Details Date Type Department Care Team (Late st Contact Info) Description 07/27/2023 7:43 AM EST Anesthesia Event [place] [address] Gianfranco Aguilar MD [facility] [place] [address] Anesthesia Record Procedure Summary Procedure Name Responsible Anesthesiologist Anesthesia Start Time Anesthesia Stop Time @LAPAROSCOPIC GASTROPLASTY W/ LAUREN-EN-Y CONSTRUCTION (WRVU 29.4) (Abdomen) Gianfranco Aguilar MD 07/27/23 0743 07/27/23 1145 Events Date Time Event Comment 07/27/2023 0722 0743 Start 0749 AN Verify 0753 An Start Data 0758 An Induction 0802 An Intubation 0817 an richar now 0817 Anesthesia Ready 0834 Skin Incision 0852 Break/Relief In I assumed ca re for Break Relief before which we: 1. Identified the patient 2. Identified the responsible provider(s) 3. Reviewed the pertinent medical history 4. Discussed the surgical plan and course 5. Reviewed intra-op anesthesia management and issues during anesthesia 6. Set expectations for the relief (and/or post-procedure) period 7. Allowed opportunity for questions and acknowledgement of understanding GIANFRANCO AGUILAR MD 0912 Break/Relief Out 1004 Quick Note 30F Bougie inse rted up to 50 cm PSR. 1019 Quick Note Bougie out PSR 1023 Quick Note EGD 1053 Extubation/LMA Out 1104 Break/Relief In I assumed ca re for Break Relief before which we: 1. Identified the patient 2. Identified the responsible provider(s) 3. Reviewed the pertinent medical history 4. Discussed the surgical plan and course 5. Reviewed intra-op anesthesia management and issues during anesthesia 6. Set expectations for the relief (and/or post-procedure) period 7. Allowed opportunity for questions and acknowledgement of understanding GIANFRANCO AGUILAR MD 1105 Quick Note Awaiting PACU b ed 1141 an stop data 1145 Recovery or ICU Handoff Kimberly ent care was transferred to the destination unit staff after review of the patient's medical history, current anesthetic/surgical status and plan, according to the Provider Handoff Checklist. 1145 Stop Meds Name Total Midazolam 2 mg fentaNYL 100 mcg IV Lidocaine 40 mg Propofol 200 mg Dexmedetomidine 44 mcg propofol INF 412.13 mg ondansetron 12 mg rocuronium 200 mg Dexamethasone 8 mg ceFAZolin (Ancef) 3 g vial a ttach to sodium chloride 0.9% 100 mL Mini-Bag Plus 3 g sugammadex 500 mg HYDROmorphone 0.4 mg lactated ringers 600 mL lactated ringers infusion 300 mL * Agents Name O2 * Blood No blood administrations on file. Lines, Drains, and Airways Type Details Placement Removal Incision 07/27/23; abdomen; laparoscopic punctures (specify); lap incision sites x 6 07/27/23 0000 by Ever Hernandez RN PIV 07/27/23; 0734; evvb-nus-vutyzg catheter system; 20 gauge; metacarpal vein (top of hand), right; Nelda John RN; 07/28/23; 1355 07/27/23 0734 by Nelda John RN 07/28/23 1355 by Emelia Mcgraw RN ETT Mask Ventilation: Ad junct (2); ETT Type: Cuffed, Oral; ETT Size: 7.5 mm; Mac Blade: 4; Notes: Asleep, Pre-O2, Cricoid Pressure, Stylette; Attempts: 1; Laryngoscopy Grade: 1; ETT Placement Verified By: Capnometry, Visual, Auscultation; Secured at Teeth: 23 cm; Inserted by: Mary Miller CRNA; Removal Date: 07/27/23; Removal Time: 1053 07/27/23 0802 by Terra Miller CRNA 07/27/23 1053 by Terra Miller CRNA NG/OG Tube 07/27/23; 0804; orogastric; 18 Fr; center mouth; Secured; 07/27/23; 0900 07/27/23 0804 by Terra Miller CHIEF ENGINEER PRODUCTION 07/27/23 0900 by Terra Miller CRNA PIV 07/27/23; 0816; 20 g auge; median cubital vein (antecubital fossa), left (upper arm); Anatomical Landmarks; Mary Miller CRNA; 2; dorsal arch vein (top of hand), left; 07/28/23; 1355 07/27/23 0816 by Terra Miller CHIEF ENGINEER PRODUCTION 07/28/23 1355 by Emelia Mcgraw RN NG/OG Tube 07/27/23; 0816; orogastric; 16 Fr; center mouth; Secured; Placed for gastric decompression. Removed per surgeon request at 0901.; 07/27/23; 0901 07/27/23 0816 by Gianfranco Aguilar MD 07/27/23 0901 by Gianfranco Aguilar MD documented in this encounter Social History Tobacco Use Types Packs/Day Years [...] in a assisted (including now)? No 10/14/2022 DH IPV Inpatient [...] on file documented as of this encounter OR Notes * Anesthesia Postprocedure Evaluation - Gianfranco Aguilar MD - 07/27/2023 1:34 PM EST Department of Anesthesiology Post-procedure Note Patient: René Wayne Procedure Summary Date: 07/27/23 Room / Location: [address] MAIN OR Anesthesia Start: 742 Anesthesia Stop: 1145 Procedures: @LAPAROSCOPIC GASTROPLASTY W/ LAUREN-EN-Y CONSTRUCTION (WRVU 29.4) (Abdomen) EGD, UPPER GI ENDOSCOPY (WRVU 2.09) Diagnosis: (Obesity) Surgeons: Terri Garcia MD Responsible Provider: Gianfranco Aguilar MD Anesthesia Type: general ASA Status: 3 All Anesthesia Providers: Anesthesiologist: Gianfranco Aguilar MD CHIEF ENGINEER PRODUCTION: Terra Miller CRNA Vitals Value Taken Time BP 142/85 07/27/23 1230 Temp 36.1 ??C (97 ??F) 07/27/23 1230 Pulse 78 07/27/23 1233 Resp 17 07/27/23 1233 SpO2 92 % 07/27/23 1333 Pain Level 2 07/27/23 1230 Vitals shown include unfiled device data. Patient Location: PACU/[facility] Level of Consciousness: Awake and Alert Pain Management: Satisfactory Analgesia PONV: None Cardiovascular Status: At Baseline and Hemodynamically Stable Respiratory Status: Supplemental O2 (NC or FM) Postoperative Fluid Status: Intravascular EUvolemia Possible Anesthetic Complications: NONE apparent at time of evaluation Final Primary Anesthesia Type: General (The anesthetic type performed was the same as planned.) Comments: * Anesthesia Preprocedure Evaluation - Gianfranco Aguilar MD - 07/26/2023 10:18 PM EST Pre-Anesthesia Evaluation for: René Wayne a 37 y.o. male. Procedure(s): @LAPAROSCOPIC GASTROPLASTY W/ LAUREN-EN-Y CONSTRUCTION (WRVU 29.4) EGD, UPPER GI ENDOSCOPY (WRVU 2.09) Patient Active Problem List Diagnosis Date Noted ??? Chest pain 05/10/2023 ??? Hepatic steatosis 05/10/2023 ??? Hx-TIA (transient ischemic attack) 05/10/2023 ??? Morbid obesity with body mass index of 60.0-69.9 in adult 05/10/2023 ? ? Nausea & vomiting 05/10/2023 ??? Panic attacks 05/10/2023 ??? S/P cholecystectomy 05/10/2023 ??? Class 3 severe obesity with serious comorbidity and body mass index (BMI) of 60.0 to 69.9 in adult 08/25/2022 ??? Hypertension 08/25/2022 ??? Hypertriglyceridemia 08/25/2022 ??? SUDHA on CPAP 08/25/2022 ??? Acute cholecystitis 11/13/2019 ??? Anxiety 03/03/2019 No past medical history on file. Past Surgical History: Procedure Laterality Date ??? PRO LAP, CHOLECYSTECTOMY/GRAPH N/A 11/14/2019 LAPAROSCOPIC CHOLECYSTECTOMY WITH CHOLANGIOGRAM (WRVU 11.47) performed by Onesimo Chaves MD at [facility] MAIN OR Social History Tobacco Use ??? Smoking status: Former Types: Cigarettes ??? Smokeless tobacco: Never ??? Tobacco comments: Rare cigarette in high school Substance Use Topics ??? Alcohol use: Not on file Social History Substance and Sexual Activity Drug Use Not on file Allergies Allergen Reactions ??? Trazodone Other Reaction(s): Agitation ??? Wellbutrin [Bupropion] Anxiety Medications: MAR and/or home medications have been reviewed. Physical Exam: Preprocedure Vitals Current as of 07/26/23 2218 No BP, pulse, respiration, SpO2, or temperature recorded. Height: 180 cm (5' 10.87) (05/12/23) Weight: 222.7 kg (491 lb) (05/12/23) BMI: 68.73 IBW: 75 kg (165 lb 5.2 oz) Airway Assessment: Mallampati: II TM distance: >3 FB Neck ROM: full Cardiovascular Assessment: system normal Pulmonary Assessment: pulmonary exam normal Dental Assessment: - normal exam Misc Assessment: IV access: Peripheral line Last Filed Perioperative Cognitive Screening None Anesthesia Plan: ASA 3 general, with a(n) intravenous induction 37yo morbidly obese M w h/o EtOH use d/o, anxiety, SUDHA (CPAP), HTN, NIDDM, presenting for lap gastrplasty, lauren-en-Y, EGD. Prior grade 1 view w mac 4 (masking not attempted due to RSI). Plan GA. Risks/benefits discussed with patient including, but not limited to, dental/airway/lip injury, vascular i njury, nerve injury, thrombosis, limb ischemia, eye injury, blindness, adverse drug reactions, awareness, stroke, MT, , among others. All questions answered to patient's satisfaction. Region - Other Informed Consent: Anesthetic plan and risks discussed with patient. Use of blood products discussed with patient who consented to blood products. Plan discussed with CHIEF ENGINEER PRODUCTION. Anesthesia Screening documented in this encounter Plan of Treatment Upcoming Encounters Date Type Department Care Team (Late st Contact Info) Description 08/17/2024 11:00 AM EST Office [place] [address] Lamar Alonzo MD [facility] DR [facility] [place] [address] documented as of this encounter Goals Goal Patient Goal Type Associated Problems Recent Progress Patient-Stated? Author Follow your diet plan as advised by your car stereo installer Courtney Owens RD Note: Images from the original note were not included. Nutrtion Goals: 04/25/23 TF Nutrition Goals: 03/28/23 TF Review and continue to work on the Eating Behaviors for success post gastric bypass Nutrition Goals updated today: 10/22/22 TF 1. Try Bolthouse dressing to reduce calories and increase in place Ranch 2. Work towards reducing total calroeus gradually to aim for 5782-6278 kcals (aim to reduce each meal by [...] MAR Action Action Date Dose Rate Site ceFAZolin (Ancef) 3 g vial attach to sodium chloride 0.9% 100 mL Mini-Bag Plus 3 g, Intravenous, ONCE, 1 dose, On Tue07/27/23 at 0715, Administer over 30 Minutes, Day of Surgery (Day of Procedure), Indication for (Active or Suspected): Prophylaxis New Bag 07/27/2023 8:08 AM EST 3 g dexAMETHasone (Decadron) injection Intravenous, PRN, Starting on Tue07/27/23 at 0809, Until Tue07/27/23 at 1333, Anesthesia Intra-op, Routine Given 07/27/2023 8:09 AM EST 8 mg dexmedeTOMIDine (Precedex) (4 mcg/mL) bolus injection (Anesthsia) Intravenous, PRN, Starting on Tue07/27/23 at 0744, Until Tue07/27/23 at 1333, Anesthesia Intra-op, Routine Given 07/27/2023 11:22 AM EST 8 mcg Given 07/27/2023 9:03 AM EST 8 mcg Given 07/27/2023 8:42 AM EST 8 mcg fentaNYL (pf) (50 mcg/mL) multi-dose injection Intravenous, PRN, Starting on Tue07/27/23 at 0758, Until Tue07/27/23 at 1333, Anesthesia Intra-op, Routine Given 07/27/2023 9:17 AM EST 50 mcg Given 07/27/2023 7:58 AM EST 50 mcg HYDROmorphone (Dilaudid) (2 mg/mL) multi-dose injection solution Intravenous, PRN, Starting on Tue07/27/23 at 1131, Until Tue07/27/23 at 1333, Anesthesia Intra-op, Routine Given 07/27/2023 11:31 AM EST 0.4 mg lactated ringers infusion 1,000 mL, at 100 mL/hr, Intravenous, CONTINUOUS, Starting on Tue07/27/23 at 0715, Until Tue07/27/23 at 1139, Day of Surgery (Day of Procedure) New Bag 07/27/2023 8:16 AM EST lactated ringers infusion Intravenous, CONTINUOUS PRN, Starting on Tue07/27/23 at 0817, Until Tue07/27/23 at 1333, Anesthesia Intra-op New Bag 07/27/2023 7:34 AM EST lidocaine (pf) (Xylocaine) (20 mg/mL) 2% injection syringe Intravenous, PRN, Starting on Tue07/27/23 at 0758, Until Tue07/27/23 at 1333, Anesthesia Intra-op, Routine Given 07/27/2023 7:58 AM EST 40 mg midazolam (pf) (Versed) (1 mg/mL) multi-dose injection Intravenous, PRN, Starting on Tue07/27/23 at 0744, Until Tue07/27/23 at 1333, Anesthesia Intra-op, Routine Given 07/27/2023 7:44 AM EST 2 mg ondansetron (pf) (Zofran) (2 mg/mL) injection Intravenous, PRN, Starting on Tue07/27/23 at 0754, Until Tue07/27/23 at 1333, Anesthesia Intra-op, Routine Given 07/27/2023 11:35 AM EST 4 mg Given 07/27/2023 7:54 AM EST 8 mg propofoL (Diprivan) (10 mg/mL) infusion Intravenous, CONTINUOUS PRN, Starting on Tue07/27/23 at 0801, Until Tue07/27/23 at 1333, Anesthesia Intra-op, Routine Rate/Dose Change 07/27/2023 10:12 AM EST 10 mcg/kg/min 8.298 mL/hr New Bag 07/27/2023 8:01 AM EST 20 mcg/kg/min 16.596 mL/ hr propofoL (Diprivan) 10 mg/mL bolus injection (Anesthesia) Intravenous, PRN, Starting on Tue07/27/23 at 0758, Until Tue07/27/23 at 1333, Anesthesia Intra-op Given 07/27/2023 8:00 AM EST 50 mg Given 07/27/2023 7:59 AM EST 50 mg Given 07/27/2023 7:58 AM EST 100 mg rocuronium (Zemuron) (10 mg/mL) multi-dose injection Intravenous, PRN, Starting on Tue07/27/23 at 0758, Until Tue07/27/23 at 1333, Anesthesia Intra-op, Routine Given 07/27/2023 8:47 AM EST 50 mg Given 07/27/2023 8:30 AM EST 20 mg Given 07/27/2023 7:58 AM EST 130 mg sugammadex (Bridion) 100 mg/mL injection Intravenous, PRN, Starting on Tue07/27/23 at 1049, Until 07/27/23 at 1333, Anesthesia Intra-op, Routine Given 07/27/2023 10:49 AM EST 500 mg documented in this encounter Care Teams Civil Engineering Design Draftsperson Relationship Specialty Start Date End Date Keena Rosales APRN [address] [place] [address] PCP - General Family Medicine 11/04/21 documented as of this encounter
--- OUTSIDE RECORDS SUMMARY | 2024-07-13 14:55 | XMS_ITS | Encounter Summary ---
Author Organization [facility] Address [facility] [place] [address] Care Team Providers Care Glove Presser Name Role Phone Bobby Keena H YEYO Primary Care Provider [phone] [phone] Encounter Details Date Type Department Care Team (Latest Contact Info) Description 04/26/2023 12:00 PM EDT TH Visit (TeleHealth) [place] [id number] Nilda Gillis, PhD [facility] [address] [place] [address] RUPERT (generalized anxiety disorder) Social History Tobacco Use Types Packs/Day Years Used Date Smoking Tobacco: Former Cigarettes Smokeless Tobacco: Never Comments:Rare cigarette in [facility] [employer] Overall Financial Resource Strain (CARDIA) [...] place to sleep or slept in a longterm (including now)? No 10/14/2022 Sex and Gender Information Value Date Recorded Sex Assigned at Not on file Gender Identity Not on file Sexual Orientation Not on file documented as of this encounter Progress Notes * Nilda Gillis, PhD - 04/26/2023 12:00 PM EDT [facility] PSYCHOLOY FOLLOW UP NOTE N [facility] [address] Dept: [phone] Loc: [phone] 04/26/2023 12:04 PM René Wayne is a 37 y.o. male who was referred for evaluation and preparation for potential bariatric surgery.René was previously evaluated and concerns were raised about bariatric surgeryreadiness. René was seen for 30 minutes. Patient was alone, and was seen Telehealth. René Wayne gave permission for and was seen for today's appointment with a Telehealth visit.During this visit they were located at work in [place]. René Wayne is aware that for any urgent matter they can call [phone].. RECOMMENDATION BASED ON PSYCHOLOGICAL EVALUATION GREEN LIGHT WITH RECOMMENDATIONS - Based on the information gathered during this assessment there are no contraindication with René Wayne proceeding with surgery. René would benefit from the following to assist with preparing for bariatric surgery: Continue engaging in health promoting behaviors Speak with your therapist re: anxiety about medications. The follow up plan is as follows: No additional f/u. Will continue to support Dr. Alonzo and the bariatric team as needed and will schedule f/u appointment if warranted. Informed René that he can reach out in the future if he needs. Also informed René that this provider is willing to connect with his community therapist if they believe that would be helpful for their work. DIAGNOSIS Generalized Anxiety Disorder The above assessment and plan was based on the following information obtained during the appointment. Please note section in blue indicates updated information from the previous evaluation: WEIGHT Initial Weight: 484lbs Weight at previous evaluation: 494 lbs Weight at previous evaluation: 493 Current Weight as of 04/1323: 490 lbs Weight changes since evaluation:decreased 3 lbs Progress towards weight loss goal of 453 lbs: improving MENTAL HEALTH UPDATE: 03/01/23 René reported that he has been struggling more emotionally recently. 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 When anxious worries that he will have a heart attack given significant family hx. Has established care with a counselor, in [facility] about 3 months ago. They are meeting on a monthly basis. Has been using melatonin to assist with sleep. 04/26/23: René reported that he has been doing well. Has been working with Dr. Alonzo. René reported that he is continuing to work on moving - has applied for a housing loan. Settling in to his new job. Continues to work with his mental health counselor - notes that she has recommended decreasing their visits. Wonders if anxiety will improve with surgery - wondering if with a decreased body size his mind might not be as reactive. Discussed importance of maintaining psych support during recovery from surgery. PROBLEM EATING BEHAVIORS From previous evaluation: History of nighttime eating (i.e., skipping daytime meals and eating large amounts at dinner or waking at night to eat): yes If h/o nighttime eating, last episode: Occurs 2 times/wk - notes that packing lunch would help. History of mindless/stress eating (i.e., eating for emotional reasons rather than hunger): yes If h/o stress eating, last episode: Now occurs once every 2 wks in a peak of anxiety 03/01/23 History of nighttime eating (i.e., skipping daytime meals and eating large amounts at dinner or waking at night to eat): yes If h/o nighttime eating, last episode: has been consistently eating throughout the day. Has startedto do a 24 hr fast on Mondays as encouraged by his PCP - started two weeks ago. Is using keto. History of mindless/stress eating (i.e., eating for emotional reasons rather than hunger): yes If h/o stress eating, last episode: has decreased this behavior. Notes that this is likely because he hasn't been struggling with increased anxiety recently. Also wonders if moving to a regular meal plan is helping. 04/26/23: Has maintained his 24 hrs fast and now reports doing it twice/wk. Denies that this triggers over-eating. Ongoing improvement re: emotional eating. Has worked towards managing anxiety with: deep breathing, grounding with sense, bringing self back to present. POST SURGERY EATING HABIT CHANGES AND READINESS From previous evaluation: Eating smaller quantities: Aware of the need and practicing about 0% of the time due to excess hunger. Sipping 48-64oz of water slowly in a day: Aware of the need and practicing about 0% of the time for sipping. Is drinking plenty of water. 03/01/23 Eating smaller quantities: Aware of the need and practicing about 80% of the time and has been practicing at this rate for about 2-3 month(s). Sipping 48-64oz of water slowly in a day: Aware of the need and practicing about 50% of the time sipping and has been practicing at this ratefor about 2 month(s). Current implementation of habit changes: good 04/26/23: Continues to work on sipping his water. Is now doing it 90% of the time. Notes that he has also been working on decreasing his seltzer intake. The assessment and plan for René Wayne are detailed at the beginning of this report. documented in this encounter Plan of Treatment Upcoming Encounters Date Type Department Care Team (Late st Contact Info) Description 08/17/2024 11:00 AM EST Office [place] [address] Lamar Alonzo MD [facility] [address] [facility] [address] documented as of this encounter Goals Goal Patient Goal Type Associated Problems Recent Progress Patient-Stated? Author Follow your diet plan as advised by your solicitor patent Courtney Owens I, RD Note: Images from the original note were not included. Nutrtion Goals: 04/25/23 TF Nutrition Goals: 03/28/23 TF Review and continue to work on the Eating Behaviors for success post gastric bypass Nutrition Goals updated today: 10/22/22 TF 1. Try Bolthouse dressing to reduce calories and increase in place Ranch 2. Work towards reducing total calroeus gradually to aim for 5366-6626 kcals (aim to reduce each meal by [...] as of this encounter Visit Diagnoses Diagnosis RUPERT (generalized anxiety disorder) Generalized anxiety disorder documented in this encounter Care Teams Glove Presser Relationship Specialty Start Date End Date Keena Rosales, YEYO [address] [place] [address] PCP - General Family Medicine 11/04/21 documented as of this encounter
--- OUTSIDE RECORDS SUMMARY | 2024-07-13 14:55 | XMS_ITS | Encounter Summary ---
Author Organization [facility] [place] [address] Care Team Providers Care Marketing Program Manager Name Role Phone Keena Rosales APRN Primary Care Provider [phone] Encounter Details Date Type Department Care Team (Latest Contact Info) Description 05/12/2023 11:50 AM EDT Laboratory Appointment Lab 3L [facility] [place] [phone] Pre-op evaluation; Obesity, unspecified classification, unspecified obesity type, unspecified whether serious comorbidity present Social History Tobacco Use Types Packs/Day Years Used Date Smoking Tobacco: Former Cigarettes Smokeless Tobacco: Never Comments:Rare cigarette in [facility] [employer] Overall Financial Resource Strain (CARDIA) [...] in a intermediate (including now)? No 10/14/2022 Sex and Gender Information Value Date Recorded Sex Assigned at Not on file Gender Identity Not on file Sexual Orientation Not on file documented as of this encounter Progress Notes * Natalia Singh APRN - 05/12/2023 11:50 AM EDT Preop labs. documented in this encounter Plan of Treatment Upcoming Encounters Date Type Department Care Team (Late st Contact Info) Description 08/17/2024 11:00 AM EST Office [place] [address] Lamar Alonzo MD [facility] DR [address] [place] [address] documented as of this encounter Goals Goal Patient Goal Type Associated Problems Recent Progress Patient-Stated? Author Follow your diet plan as advised by your registry rn Courtney Owens RD Note: Images from the original note were not included. Nutrtion Goals: 04/25/23 TF Nutrition Goals: 03/28/23 TF Review and continue to work on the Eating Behaviors for success post gastric bypass Nutrition Goals updated today: 10/22/22 TF 1. Try Bolthouse dressing to reduce calories and increase in place Ranch 2. Work towards reducing total calroeus gradually to aim for 2765-0829 kcals (aim to reduce each meal by [...] Priority Date/Time Associated Diagnosis Comments PTH Routine 05/12/2023 11:33 AM EDT Pre-op evaluation Obesity, unspecified classification, unspecified obesity type, unspecified whether serious comorbidity present HEMOGRAM Routine 05/12/2023 11:33 AM EDT Pre-op evaluation Obesity, unspecified classification, unspecified obesity type, unspecified whether serious comorbidity present VITAMIN B1, WHOLE BLOOD Routine 05/12/2023 11:33 AM EDT Pre-op evaluation Obesity, unspecified classification, unspecified obesity type, unspecified whether serious comorbidity present IRON AND TIBC Routine 05/12/2023 11:33 AM EDT Pre-op evaluation Obesity, unspecified classification, unspecified obesity type, unspecified whether serious comorbidity present VITAMIN D, 25-HYDROXY Routine 05/12/2023 11:33 AM EDT Pre-op evaluation Obesity, unspecified classification, unspecified obesity type, unspecified whether serious comorbidity present HEMOGLOBIN A1C Routine 05/12/2023 11:33 AM EDT Pre-op evaluation Obesity, unspecified classification, unspecified obesity type, unspecified whether serious comorbidity present FOLATE, SERUM Routine 05/12/2023 11:33 AM EDT Pre-op evaluation Obesity, unspecified classification, unspecified obesity type, unspecified whether serious comorbidity present FERRITIN Routine 05/12/2023 11:33 AM EDT Pre-op evaluation Obesity, unspecified classification, unspecified obesity type, unspecified whether serious comorbidity present VITAMIN B12 Routine 05/12/2023 11:33 AM EDT Pre-op evaluation Obesity, unspecified classification, unspecified obesity type, unspecified whether serious comorbidity present COMPREHENSIVE METABOLIC PANEL Routine 05/12/2023 11:33 AM EDT Pre-op evaluation Obesity, unspecified classification, unspecified obesity type, unspecified whether serious comorbidity present documented in this encounter Results * (ABNORMAL) Comprehensive metabolic panel (non-fasting) (05/12/2023 11:33 AM EDT) Glucose 114 65 - 199 mg/dL [facility] Comment:Diabetes: >=200 mg/d L plus symptoms Blood Urea Nitrogen 15 10 - 20 mg/dL [facility] Creatinine 0.69(L) 0.80 - 1.50 mg/dL [facility] Sodium 141 135 - 145 mmol/L [facility] Potassium 4.3 3.5 - 5.0 mmol/L [facility] Comment: Please note: ??Patients with WBC >100,000 may have falsely elevated Potassium levels. ??For accurate Potassium quantification in these patients send serum separator tube (gold top) for subsequent determinations. ??Contact the Clinical Chemistry Laboratory if there are any questions. Chloride 105 98 - 107 mmol/L [facility] Carbon Dioxide 26 22 - 31 mmol/L [facility] Anion Gap 10 5 - 15 mmol/L [facility] Calcium 9.5 8.5 - 10.5 mg/dL [facility] Protein, Total 7.6 6.1 - 8.0 g/dL [facility] Albumin 4.3 3.2 - 5.2 g/dL [facility] Aspartate Aminotransferase 33 0 - 39 unit/L [facility] Alanine Aminotransferase 39 0 - 55 unit/L [facility] Alkaline Phosphatase 70 40 - 130 unit/L [facility] Bilirubin, Total 0.4 0.2 - 1.3 mg/dL [facility] Est Glomerular Filtration Rate 123 >=60 mL/min/1. 73 m?? [facility] Comment: This patient's estimated GFR was [...] Agency Comment Spec In Lab Natalia E [place] DIRECTOR WEB CHEMISTRY ORDERABL ES Performing Organization Address City/[facility]/ZIP Co de Phone Number [facility] [place] [address] * Ferritin (05/12/2023 11:33 AM EDT) Pathologist [facility] Ferritin 195 30 - 400 ng/mL [facility] Comment: Pediatric reference ranges not verified at [facility], interpret with caution. Reference ranges for females greater than 50 years of age approach values for men, i.e., 30-400 ng/mL. Blood 05/12/2023 11:3 3 AM EDT 05/12/2023 11:50 AM EDT Narrative Resulting Agency Comment Spec In Lab Natalia E [place] DIRECTOR WEB CHEMISTRY ORDERABL ES Performing Organization Address [facility]/ZIP Co de Phone Number [facility] [place] [address] * Folate, serum (05/12/2023 11:33 AM EDT) Pathologist [facility] Folate 18.9 4.8 - 24.2 ng/mL [facility] Blood 05/12/2023 11:3 3 AM EDT 05/12/2023 11:50 AM EDT Narrative Resulting Agency Comment Spec In Lab Natalia E [place] DIRECTOR WEB CHEMISTRY ORDERABL ES Performing Organization Address City/[facility] Co de Phone Number [facility] [place] [address] * (ABNORMAL) Hemogram (05/12/2023 11:33 AM EDT) [facility] White Blood Cell 6.7 4.0 - 9.5 x10(3)/mc L [facility] Red Blood Cell 4.99 4.58 - 5.54 x10(6)/mc L [facility] Hemoglobin 13.5(L) 13.7 - 16.5 g/dL [facility] Hematocrit 41.7 40.5 - 48.5 % [facility] Mean Cell Volume 83.6 82.9 - 93.1 fL [facility] Mean Cell Hemoglobin 27.1(L) 27.5 - 32.1 pg [facility] Mean Cell Hemoglobin Concentration 32.4 32.0 - 35.7 g/dL [facility] Platelet 261 145 - 357 x10(3)/mc L [facility] RDW Standard Deviation 46.3(H) 36.0 - 45.0 fL [facility] RDW coefficient of variation 15.3(H) 11.4 - 13.8 % [facility] Mean Platelet Volume 8.9 7.6 - 12.9 fL [facility] NRBC% auto 0.0 % [facility] NRBC Absolute 0.000 0.000 - 0.000 x10(3)/mc L [facility] Blood 05/12/2023 11:3 3 AM EDT 05/12/2023 11:50 AM EDT Narrative Resulting Agency Comment Spec In Lab Natalia E Sam[place] DIRECTOR WEB HEMATOLOGY ORDERAB LES Performing Organization Address City/[facility]/ZIP Co de Phone Number [facility] [place] [address] * (ABNORMAL) Iron and TIBC (05/12/2023 11:33 AM EDT) Iron 63 45 - 160 mcg/dL [facility] TIBC 342 250 - 450 mcg/dL [facility] Iron Saturation 18(L) 20 - 50 % [facility] Blood 05/12/2023 11:3 3 AM EDT 05/12/2023 11:50 AM EDT Narrative Resulting Agency Comment Spec In Lab Natalia E [place] DIRECTOR WEB CHEMISTRY ORDERABL ES [facility] [place] [address] * PTH (05/12/2023 11:33 AM EDT) Parathyroid Hormone 56 15 - 65 pg/mL [facility] Blood 05/12/2023 11:3 3 AM EDT 05/12/2023 11:50 AM EDT Narrative Resulting Agency Comment Spec In Lab Natalia E [place] DIRECTOR WEB CHEMISTRY ORDERABL ES Performing Organization Address [facility] Co de Phone Number [facility] [place] [address] * Vitamin B1, whole blood (05/12/2023 11:33 AM EDT) Vit B1 Lvl Wb (NOVEMBER) 131 70 - 180 nmol/L [facility] Comment: ADDITIONAL INFORMATION This test was developed and its performance characteristics determined by [facility] in a manner consistent with CLIA requirements. This test has not been cleared or approved by the U.S. Food and Drug Administration. Test Performed by: [facility] - [address] [address] Rn Lvn: Quincy lPummer M.D. Ph.D.; CLIA# [id number] Blood 05/12/2023 11:3 3 AM EDT 05/12/2023 1:03 PM EDT Narrative Resulting Agency Comment Spec In Lab Natalia E [place] DIRECTOR WEB LAB SEND OUT ORDER CARON Performing Organization Address [facility] Co de Phone Number [facility] [place] [address] * Vitamin B12 (05/12/2023 11:33 AM EDT) Vitamin B12 442 232 - 1,245 pg/mL [facility] Blood 05/12/2023 11:3 3 AM EDT 05/12/2023 11:50 AM EDT Narrative Resulting Agency Comment Spec In Lab Natalia E Samantha DIRECTOR WEB CHEMISTRY ORDERABL ES Performing Organization Address City/[facility]/ZIP Co de Phone Number [facility] [place] [address] * Vitamin D, 25-Hydroxy (05/12/2023 11:33 AM EDT) Vitamin D Total 25 OH 22 21 - 100 ng/mL [facility] Vit D Interp Insufficient [facility] Blood 05/12/2023 11:3 3 AM EDT 05/12/2023 11:50 AM EDT Narrative Resulting Agency Comment Spec In Lab Natalia E [place] DIRECTOR WEB CHEMISTRY ORDERABL ES Performing Organization Address [facility] Co de Phone Number [facility] [place] [address] * Hemoglobin A1c (05/12/2023 11:33 AM EDT) Hemoglobin A1c 5.4 4.3 - 5.6 % [facility] Comment: Reference Range: 4.3 - 5.6% [...] Mellitus, Diabetes Care 2013; 36: Suppl. 1, B61-53 Estimated Average Glucose 107 mg/dL [facility] Comment: Note: The eAG calculation has not been proven valid for women, individuals below 18 years old or above 70 years old, or individuals with hemoglobinopathies. Estimated average glucose (eAG) is calculated from the equation described in: Uriah JIMENEZ, Whit J, Rishi R, et al. ??Translating the A1C assay into estimated average glucose values. ??Diabetes Care 2008:31(8):8157-5491. Additional resources are available on the ADA website (diabetes.org). Blood 05/12/2023 11:3 3 AM EDT 05/12/2023 11:50 AM EDT Narrative Resulting Agency Comment Spec In Lab Natalia E [place] DIRECTOR WEB CHEMISTRY ORDERABL ES Performing Organization Address [facility]/State/[place] [address] documented in this encounter Visit Diagnoses Diagnosis Pre-op evaluation Preoperative examination, unspecified Obesity, unspecified classification, unspecified obesity type, unspecified whether serious comorbidity present documented in this encounter Care Teams Marketing Program Manager Relationship Specialty Start Date End Date Keena Rosales APRN [address] [place] [address] PCP - General Family Medicine 11/04/21 documented as of this encounter
--- OUTSIDE RECORDS SUMMARY | 2024-07-13 14:55 | XMS_ITS | Encounter Summary ---
Author Organization [facility] Address [facility] [place] [address] Care Team Providers Care Fall Internship Name Role Phone Bobby Keena H YEYO Primary Care Provider [phone] Encounter Details Date Type Department Care Team (Late st Contact Info) Description 03/24/2023 Orders [place] [address] Lamar Alonzo MD [facility] DR [facility] [address] Research study patient Social History Tobacco Use Types Packs/Day Years Used Date Smoking Tobacco: Former Cigarettes Smokeless Tobacco: Never Comments:Rare cigarette in [employer] Overall Financial Resource Strain (CARDIA) Answe [...] AM EST Office [place] [address] Lamar Alonzo MD [facility] DR [facility] [address] documented as of this encounter Goals Goal Patient Goal Type Associated Problems Recent Progress Patient-Stated? Author Follow your diet plan as advised by your aviation program manager Diet Courtney Mccallum RD Note: Images from the original note were not included. Nutrtion Goals: 04/25/23 TF Nutrition Goals: 03/28/23 TF Review and continue to work on the Eating Behaviors for success post gastric bypass Nutrition Goals updated today: 10/22/22 TF 1. Try Bolthouse dressing to reduce calories and increase in place Ranch 2. Work towards reducing total calroeus gradually to aim for 7767-9318 kcals (aim to reduce each meal by [...] documented as of this encounter Results * Biorepository Request (07/20/2023 2:04 PM EST) Biorepository Hold Sample in lab [facility] Stool 07/20/2023 2:04 PM EST 07/28/2023 11:05 AM EST Narrative Resulting Agency Comment Spec In Lab Lamar CAMPA Performing Organization Address City/[facility]/[place] [address] * Biorepository Request (03/31/2023 2:29 PM EDT) Biorepository Hold Sample in lab [facility] Blood 03/31/2023 2:29 PM EDT 03/31/2023 4:35 PM EDT Narrative Resulting Agency Comment Spec In Lab Lamar CAMPA Performing Organization Address City/[facility] [place] [address] documented in this encounter Visit Diagnoses Diagnosis Research study patient Reserved for inherently not codable concepts WITHOUT codable children documented in this encounter Care Teams Fall Internship Relationship Specialty Start Date End Date Keena Rosales APRN [address] [place] [address] PCP - General Family Medicine 11/04/21 documented as of this encounter
--- OUTSIDE RECORDS SUMMARY | 2024-07-13 14:55 | XMS_ITS | Encounter Summary ---
Author Organization [facility] [place] [address] Care Team Providers Care Electrolysist Name Role Phone Keena Rosales APRN Primary Care Provider [phone] [phone] Encounter Details Date Type Department Care Team (Latest Contact Info) Description 03/31/2023 2:20 PM EDT Laboratory Appointment Lab 3L [facility]ly [facility], [facility]–[address] [place] [id number] Research study patient; Hypertension, unspecified type; Pre-operative laboratory examination Social [...] in a retirement (including now)? No 10/14/2022 Sex and Gender Information Value Date Recorded Sex Assigned at Not on file Gender Identity Not on file Sexual Orientation Not on file documented as of this encounter Plan of Treatment Upcoming Encounters Date Type Department Care Team (Late st Contact Info) Description 08/17/2024 11:00 AM EST Office [place] [address] Lamar Alonzo MD [facility] [address] [place] [address] documented as of this encounter Goals Goal Patient Goal Type Associated Problems Recent Progress Patient-Stated? Author Follow your diet plan as advised by your utility bagger Courtney Owens RD Note: Images from the original note were not included. Nutrtion Goals: 04/25/23 TF Nutrition Goals: 03/28/23 TF Review and continue to work on the Eating Behaviors for success post gastric bypass Nutrition Goals updated today: 10/22/22 TF 1. Try Bolthouse dressing to reduce calories and increase in place Ranch 2. Work towards reducing total calroeus gradually to aim for 6986-5502 kcals (aim to reduce each meal by [...] Procedure Name Priority Date/Time Associated Diagnosis Comments HC VENIPUNCTURE Routine 03/31/2023 2:29 PM EDT Research study patient CREATININE Routine 03/31/2023 2:29 PM EDT Hypertension, unspecified type Pre-operative laboratory examination documented in this encounter Results * (ABNORMAL) Creatinine (03/31/2023 2:29 PM EDT) Creatinine 0.60(L) 0.80 - 1.50 mg/dL [facility] Est Glomerular Filtration Rate 128 >=60 mL/min/1. 73 m?? [facility] Comment: This patient's estimated [...] Agency Comment Spec In Lab Keena Rosales TECHNOLOGY RISK INTERN CHEMISTRY ORDERAB LES [facility] [place] [address] * Biorepository Request (03/31/2023 2:29 PM EDT) Biorepository Hold Sample in lab [facility] Blood 03/31/2023 2:29 PM EDT 03/31/2023 4:35 PM EDT Narrative Resulting Agency Comment Spec In Lab Lamar CAMPA [facility] [place] [address] documented in this encounter Visit Diagnoses Diagnosis Research study patient Reserved for inherently not codable concepts WITHOUT codable children Hypertension, unspecified type Pre-operative laboratory examination Pre-procedural laboratory examination documented in this encounter Care Teams Electrolysist Relationship Specialty Start Date End Date Keena Rosales APRN [address] [place] [address] PCP - General Family Medicine 11/04/21 documented as of this encounter
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
--- OUTSIDE RECORDS SUMMARY | 2024-07-13 14:55 | XMS_ITS | Encounter Summary ---
[place] [address] Care Team Providers Care Grapple Crew Leader Name Role Phone Keena Rosales APRN Primary Care Provider [phone] Reason for Referral * Consultation (Routine) - Closed Specialty Diagnoses / Procedures Referred By Alma t Referred To Contact Urology Diagnoses Male infertility, unspecified Keena Rosales APRN [address] [place] [address] [facility] [place] [address] Referral ID Status Reason Start Date Expiration Date V isits Requested Visits Authorized [id number] Closed Consult, Test & Treat PCP Updated and/or Approved 05/26/2023 05/25/2024 6 6 Encounter Details Date Type Department Care Team (Latest Contact Info) Description 06/03/2023 Transcribe Orders eDH Incoming Referrals [phone] Keena Rosales APRN [address] [place] [address] Male infertility, unspecified Social History Tobacco Use Types Packs/Day Years [...] a senior care (including now)? No 10/14/2022 Sex and Gender Information Value Date Recorded Sex Assigned at Not on file Gender Identity Not on file Sexual Orientation Not on file documented as of this encounter Plan of Treatment Upcoming Encounters Date Type Department Care Team (Late st Contact Info) Description 08/17/2024 11:00 AM EST Office Visit [place] [address] Lamar Alonzo MD [facility] DR [facility] [place] [address] Scheduled Referrals Name Type Priority Associated Diagnoses Orde r Schedule Referral to Urology Outpatient Referral Routine Male infertility, unspecified Ordered: 06/03/2023 documented as of this encounter Goals Goal Patient Goal Type Associated Problems Recent Progress Patient-Stated? Author Follow your diet plan as advised by your neon molder Diet Courtney Mccallum RD Note: Images from the original note were not included. Nutrtion Goals: 04/25/23 TF Nutrition Goals: 03/28/23 TF Review and continue to work on the Eating Behaviors for success post gastric bypass Nutrition Goals updated today: 10/22/22 TF 1. Try Bolthouse dressing to reduce calories and increase in place Ranch 2. Work towards reducing total calroeus gradually to aim for 9446-8041 kcals (aim to reduce each meal by [...] as of this encounter Visit Diagnoses Diagnosis Male infertility, unspecified documented in this encounter Care Teams Grapple Crew Leader Relationship Specialty Start Date End Date Keena Rosales APRN [address] [place] [address] PCP - General Family Medicine 11/04/21 documented as of this encounter
--- OUTSIDE RECORDS SUMMARY | 2024-07-13 14:55 | XMS_ITS | Encounter Summary ---
[place] [address] Care Team Providers Care Sample Tester Grinder Name Role Phone Keena Rosales APRN Primary Care Provider [phone] Reason for Referral * Diagnostic Test (Routine) - Closed Specialty Diagnoses / Procedures Referred By Alma ortega Referred To Contact Radiology Diagnoses Steatosis of liver Procedures CT Abdomen w Contrast Keena Rosales APRN [address] [place] [address] [facility] [place] [address] Referral ID Status Reason Start Date Expiration Date V isits Requested Visits Authorized [id number] Closed Specialty Service Requested 10/21/2022 04/22/2024 1 1 Reason for Visit * Diagnostic Test (Routine) - Closed Specialty Diagnoses / Procedures Referred By Contac jordan Referred To Contact Radiology Diagnoses Steatosis of liver Procedures CT Abdomen w Contrast Keena Rosales APRN [address] [place] [address] [facility] [place] [address] Referral ID Status Reason Start Date Expiration Date V isits Requested Visits Authorized [id number] Closed Specialty Service Requested 10/21/2022 04/22/2024 1 1 Encounter Details Date Type Department Care Team (Latest Contact Info) Description 03/31/2023 2:40 PM EDT - 03/31/2023 11:59 PM EDT Hospital [place] [address] Keena Rosales APRN [address] [place] [address] Steatosis of liver Discharge Disposition: Home Social History Tobacco Use [...] Sig Dispensed Refills Start Date End Date acetaminophen (Tylenol) 325 mg Tablet Take 3 tablets by mouth every 6 hours as needed for Pain. 30 tablet 11/14/2019 LORazepam (Ativan) 0.5 mg Tablet Take 0.5 mg by mouth daily as needed. 09/12/2019 cyclobenzaprine (Flexeril) 10 mg tablet TAKE 1/2 TO 1 TABLET BY MOUTH THREE TIMES A DAY NEEDED MUSCLE SPASMS 03/04/2023 05/12/20 ferrous sulfate (FeroSul) 325 mg (65 mg iron) tablet daily. 02/11/2022 05/12/2023 hydrOXYzine (Atarax) 50 mg tablet Twice a day 08/04/2020 05/12/2023 topiramate (Topamax) 25 mg tabletIndications:Fr equent headaches Take 2 tablets by mouth once daily 60 tablet 1 11/16/2022 04/22/2023 Propranolol-Hydrochl orothiazid (INDERIDE) 40-25 mg Tablet Take by mouth 2 times daily. 05/12/2023 busPIRone (Buspar) 5 mg Tablet Take 5 mg by mouth 2 times daily. 07/26/2023 cholecalciferol (Vitamin D3) 1,000 unit Tablet Take 5,000 Units by mouth. 05/12/2023 Victoza 3-Carlo 0.6 mg/0.1 mL (18 mg/3 mL) Pen Injector INJECT 1.8 MG SUBCUTANEOUSLY ONCE A DAY. 06/22/2022 07/28/2023 metFORMIN (Glucophage) 500 mg Tablet Take 2,000 mg by mouth Daily. 11/18/2023 Pentips 32 gauge x 5/32 Needle USE 1 NEEDLE SUBCUTANEOUSLY ONCE DAILY DIRECTED 07/30/2022 11/18/2023 prazosin (Minipress) 1 mg Capsule Take 2 mg by mouth nightly. 07/22/2022 11/18/2023 propranoloL (Inderal) 10 mg Tablet Take 5 mg by mouth daily. 06/30/2022 05/04/2024 ibuprofen (Advil;Motrin) 400 mg Tablet Take 1.5 tablets by mouth every 6 hours as needed for Pain. 30 tablet 11/14/2019 07/28/2023 venlafaxine (EFFEXOR-XR) 150 mg Capsule, Sust. Release 24 hr Take 150 mg by mouth daily. 10/17/2019 11/18/2023 documented as of this encounter Plan of Treatment Upcoming Encounters Date Type Department Care Team (Late st Contact Info) Description 08/17/2024 11:00 AM EST Office [place] [address] Lamar Alonzo MD [facility] DR [facility] [place] [address] documented as of this encounter Goals Goal Patient Goal Type Associated Problems Recent Progress Patient-Stated? Author Follow your diet plan as advised by your health and safety advisor Courtney Owens RD Note: Images from the original note were not included. Nutrtion Goals: 04/25/23 TF Nutrition Goals: 03/28/23 TF Review and continue to work on the Eating Behaviors for success post gastric bypass Nutrition Goals updated today: 10/22/22 TF 1. Try Bolthouse dressing to reduce calories and increase in place Ranch 2. Work towards reducing total calroeus gradually to aim for 4632-7725 kcals (aim to reduce each meal by [...] Priority Date/Time Associated Diagnosis Comments CT ABDOMEN W CONTRAST Routine 03/31/2023 3:32 PM EDT Steatosis of liver documented in this encounter Results * CT Abdomen w Contrast (03/31/2023 3:32 PM EDT) Anatomical Region Laterality Modality Abdomen Computed Tomogra phy Impressions 04/01/2023 9:40 AM EDT 1. ??Increased hepatomegaly with steatosis. 2. ??Left renal 2.1 cm exophytic lesion, favored a hyperdense cyst. Consider renal ultrasound for further evaluation. 3. ??Supraumbilical fat containing ventral hernia. Thank you for letting us participate in the care of this patient. ??If you are a health care provider and have any questions regarding this report, please contact the number below. ??For patients who have questions please contact the health body care manager that requested your imaging first. ? Electronically signed by: Onesimo Mercedes MD, [facility] ([phone]), at 04/01/2023 9:40 AM Narrative 04/01/2023 9:40 AM EDT EXAMINATION: CT ABDOMEN W CONTRAST CLINICAL HISTORY: ATTN LIVER FOR LIVER STEATOSIS/ GFR 117.63 ON 10/19 TECHNIQUE: Helical CT of the abdomen following the intravenous administration of contrast. Administered 120.0 ml of OMNIPAQUE 350.00 mg/ml. Oral contrast was not administered. COMPARISON: Outside CT from 11/13/2019 FINDINGS: Lower chest: Normal. Liver: Severely enlarged measuring 27.6 cm CC, previously 25.7 cm. Diffuse decreased attenuation consistent with steatosis. No focal lesion. Bile ducts: Nondilated. Gallbladder: Surgically absent. Pancreas: Normal attenuation without ductal dilatation. Spleen: Normal. Adrenals: Normal. Kidneys: Symmetric enhancement without hydronephrosis. Left anterior exophytic lesion measuring 21 mm and slightly above simple fluid density. This previous measured 18 mm in 2019 is unchanged in density from prior noncontrast exam suggestive of a hyperdense cyst. Vasculature: Normal caliber of the aorta. Patent portal vein. Lymph Nodes: No enlarged lymph nodes. Bowel: Nondilated, no wall thickening. ?? Peritoneum and retroperitoneum: No free fluid or loculated fluid collection. No pneumoperitoneum. No mesenteric inflammation. Abdominal wall: Supraumbilical midline fat-containing ventral hernia measuring 9 cm with a 4 cm neck. Osseous structures: No suspicious lesions. Procedure Note Onesimo Mercedes MD - 04/01/2023 EXAMINATION: CT ABDOMEN W CONTRAST CLINICAL HISTORY: ATTN LIVER FOR LIVER STEATOSIS/ GFR 117.63 ON 10/19 TECHNIQUE: Helical CT of the abdomen following the intravenousadministration of contrast. Administered 120.0 ml of OMNIPAQUE 350.00 mg/ml. Oral contrastwas not administered. COMPARISON: Outside CT from 11/13/2019 FINDINGS: Lower chest: Normal. Liver: Severely enlarged measuring 27.6 cm CC, previously 25.7 cm.Diffuse decreased attenuation consistent with steatosis. No focal lesion. Bile ducts: Nondilated. Gallbladder: Surgically absent. Pancreas: Normal attenuation without ductal dilatation. Spleen: Normal. Adrenals: Normal. Kidneys: Symmetric enhancement without hydronephrosis. Left anteriorexophytic lesion measuring 21 mm and slightly above simple fluid density. Thisprevious measured 18 mm in 2020 is unchanged in density from prior noncontrastexam suggestive of a hyperdense cyst. Vasculature: Normal caliber of the aorta. Patent portal vein. Lymph Nodes: No enlarged lymph nodes. Bowel: Nondilated, no wall thickening. Peritoneum and retroperitoneum: No free fluid or loculated fluidcollection. No pneumoperitoneum. No mesenteric inflammation. Abdominal wall: Supraumbilical midline fat-containing ventral herniameasuring 9 cm with a 4 cm neck. Osseous structures: No suspicious lesions. IMPRESSION 1. Increased hepatomegaly with steatosis. 2. Left renal 2.1 cm exophytic lesion, favored a hyperdense cyst.Consider renal ultrasound for further evaluation. 3. Supraumbilical fat containing ventral hernia. Thank you for letting us participate in the care of this patient. If youare a health care provider and have any questions regarding this report,please contact the number below. For patients who have questions please contactthe health body care manager that requested your imaging first. Electronically signed by: Onesimo Mercedes MD, [facility]([phone]), at 04/01/2023 9:40 AM Keena Rosales CUSTOM BOW MAKER IMG CT ORDERABLES documented in this encounter Visit Diagnoses Diagnosis Steatosis of liver Other chronic nonalcoholic liver disease documented in this encounter Administered Medications Inactive Administered Medications - up to 3 most recent administrations Medication Order MAR Action Action Date Dose Rate Site iohexoL (Omnipaque) (350 mg/mL) solution 0-200 mL 0-200 mL, Intravenous, ONCE PRN, 1 dose, Starting on Lashae 03/31/23 at 1532, Until Lashae 03/31/23 at 1532, Per Protocol, Warning Vesicant/Irritant Medication , Radiology Contrast, Routine Given 03/31/2023 3:32 PM EDT 120 mLs documented in this encounter Care Teams Sample Tester Grinder Relationship Specialty Start Date End Date Keena Rosales, YEYO [address] [place] [address] PCP - General Family Medicine 11/04/21 documented as of this encounter
--- OUTSIDE RECORDS SUMMARY | 2024-07-13 14:55 | XMS_ITS | Encounter Summary ---
Author Organization [facility] Address [facility] [place] [address] Care Team Providers Care It Professional Name Role Phone Keena Rosales APRN Primary Care Provider [phone] Encounter Details Date Type Department Care Team (Latest Contact Info) Description 03/30/2023 Travel Social History Tobacco Use Types Packs/Day [...] AM EST Office [place] [address] Lamar Alonzo MD [facility] DR [facility] [place] [address] documented as of this encounter Goals Goal Patient Goal Type Associated Problems Recent Progress Patient-Stated? 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 Nutrtion Goals: 04/25/23 TF Nutrition Goals: 03/28/23 TF Review and continue to work on the Eating Behaviors for success post gastric bypass Nutrition Goals updated today: 10/22/22 TF 1. Try Bolthouse dressing to reduce calories and increase in place Ranch 2. Work towards reducing total calroeus gradually to aim for 3331-2300 kcals (aim to reduce each meal by [...] on filedocumented in this encounter Care Teams It Professional Relationship Specialty Start Date End Date Keena Rosales APRN [address] [place] [address] PCP - General Family Medicine 11/04/21 documented as of this encounter
--- OUTSIDE RECORDS SUMMARY | 2024-07-13 14:56 | XMS_ITS | Encounter Summary ---
Author Organization [facility] Address [facility] [place] [address] Care Team Providers Care Quality Control Engineering Technician Name Role Phone Pipo Frazier Primary Care Provider [phone] Reason for Visit * Auth/Cert Specialty Diagnoses / Procedures Referred By Alma ortega Referred To Contact Diagnoses Cholecystitis Procedures EMERGENCY IPI Referral ID Status Reason Start Date Expiration Date Visits Re quested Visits Authorized [id number] 1 1 Encounter Details Date Type Department Care Team (Late st Contact Info) Description 11/14/2019 9:13 AM EDT - 11/14/2019 12:42 PM EDT Surgery Main Operating [place] [id number] Isabel Clark MD [facility] [place] [address] LAPAROSCOPIC CHOLECYSTECTOMY WITH CHOLANGIOGRAM (WRVU 11.47) Social History Tobacco Use Types Packs/Day Years Used Date Smoking Tobacco: Never Assessed Sex and Gender Information Value Date Recorded Sex Assigned at Not on file Gender Identity Not on file Sexual Orientation Not on file documented as of this encounter Last Filed Vital Signs Vital Sign Reading Time Taken Comments Blood Pressure 168/92 11/14/2019 7:49 AM EDT Pulse - - Temperature 36.8 ??C (98.3 ??F) 11/14/2019 7:49 AM ED T Respiratory Rate 18 11/14/2019 7:49 AM EDT Oxygen Saturation 94% 11/14/2019 7:49 AM EDT Inhaled Oxygen Concentration - - Weight 217.7 kg (480 lb) 11/14/2019 11:00 AM EDT Height - - Body Mass Index - - documented in this encounter Discharge Summaries * Prashant Akins MD - 11/14/2019 12:53 PM EDT Acute Care Surgery Discharge Summary Patient Name: René Wayne Patient Age: 34 y.o. : 1985 Attending Physician: Isabel Clark MD Date of Admission: 11/13/2019 Date of Discharge: 11/14/2019 ID: 34 y.o. man admitted on 11/13/2019 for cholelithiasis and acute cholecystitis. In-hospital Issues: - Acute Pain - Gangrenous cholecystitis - Anxiety - Obstructive sleep apnea (pt uses a CPAP at home and brought it for this admission) - Super morbid obesity (BMI 70.3) Allergies: No Known Allergies Operations/Procedures: 11/14/2019 LAPAROSCOPIC CHOLECYSTECTOMY WITH CHOLANGIOGRAM (WRVU 11.47) HPI: René Wayne is a 34 y.o. man with morbid obesity, SUDHA on CPAP, anxiety, panic attacks, andalcohol use disorder (1/2 a gallon of vodka/day). He was transferred from an OSH with acute cholecystitis. He stated that he was in his usual state of health until 2d ago, when he started to experience RLQ. The pain gradually worsened and he experienced N/V and cold sweats. He said the pain was worse when laying on his side, when taking deep breaths, and after eating. He described the pain as a constant pressure and stabbing sensation with some radiation into his back. On the night of 11/11, the patient stated that he vomited (non-bloody, non-bilious) at least 5 times and went to the OSH ED in the morning. At the OSH, he was found to have a leukocytosis of 17. He was sent for a CT (without contrast) and an US, with concern for cholecystitis versus appendicitis. Imaging was most consistent with acute cholecystitis. ?? He arrived to [facility] as a direct admit to the ACS service. Hospital Course: Mr. Wayne was admitted with the above presentation. He underwent a very difficult laparoscopic cholecystectomy given his BMI of 70.3. The surgery was otherwise uncomplicated but technically difficultgiven his size. He tolerated it well. The gallbladder was frankly necrotic. Post-operatively, his pain was adequately controlled, he was maintaining adequate oxygen saturation on room air, and was hemodynamically stable. He tolerated about 800ml of gingerale without abdominal complaints and was able to void adequately. He was ambulating independently. René Wayne was evaluated by the Surgery Team and deemed medically stable for discharge today. Plan: - discharge to home - tylenol/ibuprofen for pain - regular diet Incidental Radiographic Findings: None Pending Lab Data at Discharge: None Pertinent Lab Data: Recent Labs 11/14/19 0406 WBC 10.4* HGB 13.9 HCT 44.4 PLATELET 292 Recent Labs 11/14/19 0406 NA 140 K 3.9 CL 102 CO2 26 BUN 10 CREATININE 0.71* GLUCOSE 115 CALCIUM 9.3 MAGNESIUM 0.94 PHOS 3.7 Microbiology Data: None Pertinent Imaging: No new imaging after admission. Discharge Physical Examination: Vital Signs: Last value Range last 24hrs Temperature Temp: 36.8 ??C (98.2 ??F) Temp: [36.7 ??C (98.1 ??F)-37.1 ??C (98.8 ??F)] Heart Rate Heart Rate: 95 Heart Rate: [84-96] Blood Pressure BP: 129/79 BP: (129-179)/(61-106) Respiratory Rate Resp: 18 Resp: [18-20] SpO2 SpO2: 93 % SpO2: [93 %-98 %] Physical Exam: General: obese, AAOx3 in NAD HEENT: PEERL, no scleral icterus CV: Regular rate Pul: No increased wob on RA Abd: obese, soft, nd, appropriately ttp around portsites; port sites c/d/i no discharge Ext/Skin: wwp Neuro: No focal deficits Current Medications: The following medications have been prescribed for you. If you notice any adverse reactions to yourmedications, please contact your primary care physician immediately or go to the nearest Emergency Department. Your Medications New Medications Dose Details acetaminophen 325 mg Tab Commonly known as: Tylenol Take 3 tablets by mouth every 6 hours as needed for Pain. 975 mg Quantity: 30 tablet Refills: 0 ibuprofen 400 mg Tab Commonly known as: Advil;Motrin Take 1.5 tablets by mouth every 6 hours as needed for Pain. 600 mg Quantity: 30 tablet Refills: 0 oxyCODONE 5 mg Tab Commonly known as: Roxicodone Take 1 tablet by mouth every 6 hours as needed for Pain. 5 mg Quantity: 5 tablet Refills: 0 Continued medications with new dosing Dose Details venlafaxine 150 mg Cp24 Commonly known as: EFFEXOR-XR Take 225 mg by mouth daily. What changed: Another medication with the same name was removed. Continue taking this medication, and follow the directions you see here. 225 mg Refills: 0 Continued medications, unchanged Dose Details LORazepam 0.5 mg Tab Commonly known as: Ativan Take 0.5 mg by mouth daily as needed. 0.5 mg Refills: 0 Disposition: *Home Scheduled Appointments: The following appointments have been scheduled on your behalf: -You will follow up with the ACS service in clinic in 3-4 weeks. If you do not hear from us by mailor phone in the next week please call the number listed at the bottom. Outpatient Services/Studies: No discharge procedures on file. Special Instructions Given to Patient at Discharge:. An After Visit Summary was printed and given to the patient. Patient Instructions [facility] Department of Acute Care Surgery Discharge Instructions CALL YOUR PHYSICIAN'S OFFICE IF: ??? You have a fever greater than 101 degrees Farenheit (38.3C) within one month of your surgery. ? ? You have diarrhea or vomiting for >24 hours, stop having bowel movements and/or passing flatus, have pain with urination. ??? You have worsening pain, not controlled with your pain medication. ??? You develop redness, swelling, or new drainage from your wound. Medications: [x] Pain Control [x] Non-narcotic pain medication - We recommend alternating with tylenol 650mg and ibuprofen 400-600mg every 6 hours (ie; tylenol at12pm, ibuprofen 3pm, tylenol 6pm, ibuprofen 9pm). - Do not take more than 4,000mg (4g) of tylenol in 24hours. [x] Other Medication(s) - The remainder of your medications are listed in the first section of the After Visit Summary. Driving Restrictions: - No driving if you are too sore from surgery to enter or exit your vehicle comfortably, or if you are too sore to easily check your blind spot. No driving while using narcotic pain medications. Shower: - It is ok to shower. You can shower per usual routine and let soapy water run over your incision. Pat incision dry with a clean, dry towel. Do not submerge the wound under water (no swimming or soaking) for at least 6 weeks, or until approved by your surgeon. Diet: [x] You have been cleared to resume your regular diet - We recommend eating a regular healthy diet (ie; fresh fruits, vegetables and fiber-containing foods will assist in wound healing,) Activity: - It is normal to feel tired after surgery/hospitalization. Be as active as tolerated as this will improve recovery and prevent blood clots. - You should avoid any heavy lifting for 4 weeks after surgery. A galloon of milk is a good estimate of the maximum you should be lifting while your wounds heal. -We recommend taking several slow, short walks each day for the first two weeks, and gradually increase your distance. We recommend at least 4 times a day. Wound/Incision Care: Closure: Your skin incisions are closed with: [] Glue - There are sutures below the skin and the glue is the dressing. There is nothing to removeand the discoloration will go away in time. Infection: Observe for changes and alert the clinic if new/worsening redness or drainage. Things to avoid: Do not use creams, oils, or ointments on the wound. Keep wound open to air if it is not draining. Who to call? If you have concerns or questions: - During the day, it is best to call the [facility] to speak with the Surgery nurses. The number is [phone]. - During the night or weekends call the [facility] ditto machine operator at [phone] and ask to speak to the surgery resident oil well directional surveyor for general surgery. Please note: Your surgeon may not be Career Based Intervention Coordinator, especially during the night or on weekends, so be ready to describe yourself and your surgery when you call. Follow up appointments: [x] A request for a follow-up appointment has been made and you should receive information via phone/mail in the next week. If you do not hear anything, please call the clinic at [phone] to confirm or reschedule. If you need a prior authorization, please call the General Surgery Clinic nurses [phone] for prior authorizations assistance Your care was managed by the Trauma and Acute Care Surgery Team at [facility]. If you have any questions or concerns, please feel free to contact us. Provider Contact Information: General Surgery Clinic: Nurses line for questions: [facility] (after business hours): CC: LO Francis Moni Leti Mejia APRN Signed: Denys Patel MD Department of Surgery 11/14/2019 Acute Care Surgery Pager [phone] I saw and evaluated the patient with Dr. Patel (resident). I have independently reviewed the relevant laboratory and radiographic studies. I have edited the above note and agree with the details aswritten. My physical examination confirms the resident's findings. The assessment and plan were form ulated in discussion with me at the time of the visit and I agree with them as documented. Prashant Akins MD documented in this encounter Discharge Instructions * Patient Instructions* Denys Patel MD - 11/14/2019 12:03 PM EDT [facility] Department of Acute Care Surgery Discharge Instructions CALL YOUR PHYSICIAN'S OFFICE IF: ??? You have a fever greater than 101 degrees Farenheit (38.3C) within one month of your surgery. ? ? You have diarrhea or vomiting for >24 hours, stop having bowel movements and/or passing flatus, have pain with urination. ??? You have worsening pain, not controlled with your pain medication. ??? You develop redness, swelling, or new drainage from your wound. Medications: [x] Pain Control [x] Non-narcotic pain medication - We recommend alternating with tylenol 650mg and ibuprofen 400-600mg every 6 hours (ie; tylenol at12pm, ibuprofen 3pm, tylenol 6pm, ibuprofen 9pm). - Do not take more than 4,000mg (4g) of tylenol in 24hours. [x] Other Medication(s) - The remainder of your medications are listed in the first section of the After Visit Summary. Driving Restrictions: - No driving if you are too sore from surgery to enter or exit your vehicle comfortably, or if you are too sore to easily check your blind spot. No driving while using narcotic pain medications. Shower: - It is ok to shower. You can shower per usual routine and let soapy water run over your incision. Pat incision dry with a clean, dry towel. Do not submerge the wound under water (no swimming or soaking) for at least 6 weeks, or until approved by your surgeon. Diet: [x] You have been cleared to resume your regular diet - We recommend eating a regular healthy diet (ie; fresh fruits, vegetables and fiber-containing foods will assist in wound healing,) Activity: - It is normal to feel tired after surgery/hospitalization. Be as active as tolerated as this will improve recovery and prevent blood clots. - You should avoid any heavy lifting for 4 weeks after surgery. A galloon of milk is a good estimate of the maximum you should be lifting while your wounds heal. -We recommend taking several slow, short walks each day for the first two weeks, and gradually increase your distance. We recommend at least 4 times a day. Wound/Incision Care: Closure: Your skin incisions are closed with: [] Glue - There are sutures below the skin and the glue is the dressing. There is nothing to removeand the discoloration will go away in time. Infection: Observe for changes and alert the clinic if new/worsening redness or drainage. Things to avoid: Do not use creams, oils, or ointments on the wound. Keep wound open to air if it is not draining. Who to call? If you have concerns or questions: - During the day, it is best to call the General Surgery Clinic to speak with the Surgery nurses. The number is [phone]. - During the night or weekends call the [facility] ditto machine operator at [phone] and ask to speak to the surgery resident oil well directional surveyor for general surgery. Please note: Your surgeon may not be Career Based Intervention Coordinator, especially during the night or on weekends, so be ready to describe yourself and your surgery when you call. Follow up appointments: [x] A request for a follow-up appointment has been made and you should receive information via phone/mail in the next week. If you do not hear anything, please call the clinic at [phone] to confirm or reschedule. If you need a prior authorization, please call the General Surgery Clinic nurses [phone] for prior authorizations assistance documented in this encounter Medications at Time of Discharge Medication Sig Dispensed Refills Start Date End Date acetaminophen (Tylenol) 325 mg Tablet Take 3 tablets by mouth every 6 hours as needed for Pain. 30 tablet 11/14/2019 LORazepam (Ativan) 0.5 mg Tablet Take 0.5 mg by mouth daily as needed. 09/12/2019 ibuprofen (Advil;Motrin) 400 mg Tablet Take 1.5 tablets by mouth every 6 hours as needed for Pain. 30 tablet 11/14/2019 07/28/2023 oxyCODONE (Roxicodone) 5 mg Tablet Take 1 tablet by mouth every 6 hours as needed for Pain. 5 tablet 11/14/2019 08/25/2022 venlafaxine (EFFEXOR-XR) 150 mg Capsule, Sust. Release 24 hr Take 150 mg by mouth daily. 10/17/2019 11/18/2023 documented as of this encounter Progress Notes * Zulma Gill RN - 11/14/2019 2:07 PM EDT 1355 Pt admitted to PACU 13 from OR. Monitors attached and alarms on per unit standard. * Denys Patel MD - 11/14/2019 1:03 PM EDT ID/MECHANISM OF INJURY: René Wayne is a 34 y.o. male With cholecystitis s/p lap cholecystectomy OR CASE INFORMATION: 11/14/2019 Procedure(s): LAPAROSCOPIC CHOLECYSTECTOMY WITH CHOLANGIOGRAM (VU 11.47) FOLLOW-UP NEEDED: Does pt need to f-u with surgeon or MSW (please indicate reason if attending provider): MSW What follow-up with TACS team is needed and how soon? 3-4 weeks Follow-up with other services? No Advise of Service and needs. Imaging orders entered: No Radiology Safety questions done for MRI/CT? N/A New or current ostomy? Ostomy nurse shared visit No Mobility concerns: Fully ambulatory Wound vac (requires 60min clinic visit) No On vent? If Yes - Needs to have someone from facility and supplies. No On Dialysis: No (SCHEDULE?) INCIDENTAL FINDINGS Incidental Findings (yes/no): No If yes, Incidental Finding Consent signed N/A If yes, give to It Applications Manager for scanning OPIOID CONSENT/NARCOTIC AGREEMENTS Current Month Narcotic Consent? N/A If yes, give to It Applications Manager for scanning D/c to: Home If Rehab - Rehab Name: PCP Name: LO Francis PCP Contact Info (if not in dictionary): None listed Denys Patel MD 11/14/2019 * Prashant Akins MD - 11/14/2019 11:55 AM EDT General Surgery Resident Inpatient Progress Note ID: René Wayne is a 34 y.o. male with morbid obesity, SUDHA, EtOH use disorder, anxiety, panic disorder who is transferred from an OSH for a lap taz. 24hr events: ?? Admitted ?? NAEO Subjective: continues to have R-sided abdominal tenderness; no other complaints this AM, denies n/v/cp/sob O: Last value Range last 24hrs Temperature Temp: 36.8 ??C (98.3 ??F) Temp: [36.7 ??C (98.1 ??F)-37.1 ??C (98.8 ??F)] Heart Rate Heart Rate: -- Blood Pressure BP: (!) 168/92 BP: (140-179)/(81-135) Respiratory Rate Resp: 18 Resp: [18-20] SpO2 SpO2: 94 % SpO2: [93 %-96 %] 11/12 0701 - 11/13 0700 In: 1094 [I.V.:1058] Out: - Physical Exam: General: obese man laying in bed, NAD HEENT: MMM, PERRL CV: RRR Pulm: CTAB Abdominal: obese, soft, TTP in RLQ/RUQ, +Ray Ext: WWP Neuro: no focal deficits Recent Labs 11/14/19 0406 WBC 10.4* HGB 13.9 HCT 44.4 PLATELET 292 Recent Labs 11/14/19 0406 NA 140 K 3.9 CL 102 CO2 26 BUN 10 CREATININE 0.71* GLUCOSE 115 CALCIUM 9.3 MAGNESIUM 0.94 PHOS 3.7 NEW IMAGING: Non-contrast CT obtained at OSH 11/13/2019: gallbladder distention RUQ U/S at OSH 11/13/2019: gallbladder filled with stones, pericholecystic fluid, no wall thickending, normal CBD ASSESSMENT: René Wayne is a 34 y.o. male with transferred from OSH for planned lap vs open vs fenestrated cholecystectomy. No issues overnight. Planning to go to the OR today. Will keep him on his home lorazepam given heavy alcohol use to mitigate withdrawal risk. PLAN: ?? Cholecystectomy today (lap vs open vs fenestrated) ?? NPO for OR today; advance diet post-op ?? IV Fluids: at 100 mL/hr ?? Daily CBC, BMP, LFTs ?? Continue zosyn ?? Home CPAP ?? Pain control: scheduled acetaminophen, prn oxycodone for breakthrough ?? CIWA monitoring ?? Continue home lorazepam, venlafaxine ?? DVT prophylaxis: SCDs, SQH ?? GI prophylaxis: not indicated ?? DISPO: floor I saw and evaluated the patient with Dr. Adamson (resident). I have independently reviewed the relevant laboratory and radiographic studies. I have edited the above note and agree with the details as written. My physical examination confirms the resident's findings. The assessment and plan were for mulated in discussion with me at the time of the visit and I agree with them as documented. The patient is a 34yo man with morbid obesity, cholelithiasis and acute cholecystitis. He is NPO today for a laparoscopic vs open cholecystectomy. He is booked and consented and will go as a first case. Continue abx coverage. Prashant Akins MD * Valerie Velasco RN - 11/13/2019 4:57 PM EDT Patient arrived as a direct admit from [facility] at 16:30. Attached to masimo. BP 162/135,tachy at 125. MD paged about arrival and vital signs. Plan to let patient settle and recheck VS. Waiting for orders. Urinal at the bedside. On RA. Lung sounds clear and dim. 4/10 in RLQ. Oriented to room and call more within reach. BP recheck 160/109, HR 96. Will notify MD documented in this encounter H&P Notes * Isabel Clark MD - 11/13/2019 7:06 PM EDT ACUTE CARE SURGERY ADMISSION HISTORY AND PHYSICAL Patient Name: René Wayne MR#: [id number] : [id number] CC: 34 y.o. Male p/w acute cholecystitis HISTORY OF PRESENT ILLNESS: René Wayne is a 34 y.o. male with morbid obesity, SUDHA on CPAP, anxiety, panic attacks, and alcohol use disorder transferred from OSH with acute cholecystitis. Patient describes that he was in his usual state of health until 2d ago, when he started to experience RLQ. The pain gradually worsenedand was a/w N/V, cold sweats. He says the pain is worse when laying on his side, when taking deep breaths, and following eating. He describes the pain as a constant pressure and stabbing sensation with some radiation into his back. On the night of 11/11, the patient stated that he vomited (non-bloody, non-bilious) at least 5 times and went to the OSH ED in the morning. At the OSH, he was found to have leukocytosis to [address] for CT (without contrast) and US, with concern for cholecystitisversus appendicitis. Imaging was most consistent with acute cholecystitis. He arrives to [facility] as a direct admit [facility]. He denies fever, sick contacts, recent travel, diarrhea, constipation, hematochezia, melena, cough, SOB, chest pain. Of note, the patient states that he drinks about half a gallon of vodka per week. He denies a history of complicated withdrawal. Last drink was 2 days ago. PAST MEDICAL AND SURGICAL HISTORY: Morbid obesity SUDHA EtOH use disorder Anxiety Panic disorder No prior surgeries ALLERGIES: No Known Allergies MEDICATIONS: Medications Prior to Admission Medication Sig Dispense Refill Last Dose ??? LORazepam (Ativan) 0.5 mg Tablet Take 0.5 mg by mouth daily as needed. ??? venlafaxine (EFFEXOR-XR) 150 mg Capsule, Sust. Release 24 hr Take 225 mg by mouth daily. ??? venlafaxine XR (Effexor-XR) 75 mg Capsule, Sust. Release 24 hr Take 225 mg by mouth daily. FAMILY HISTORY: Patient endorses FH of heart disease on his father's side and cancer (details unknown) on his mother's. Per the patient, he has numerous family member's on his father's side who have had an CT in their 30s. 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 Unremarkable except as detailed in HPI. PHYSICAL EXAM: VITALS: Most Recent Vitals: 11/13/19 1801 BP: (!) 176/104 Resp: SpO2: 93% There is no height or weight on file to calculate BMI. General: obese man laying in bed, NAD HEENT: MMM, PERRL CV: RRR Pulm: CTAB Abdominal: obese, soft, TTP in RLQ/RUQ, +Ray Ext: WWP Neuro: no focal deficits LABORATORY: No results found for this or any previous visit (from the past 24 hour(s)). Assessment/Summary: 34 y.o. male with morbid obesity, SUDHA, EtOH use disorder, anxiety, panic disorder who is transferred from an OSH for a lap taz. Given his subjective symptoms including worseningpain with eating, +Ray sign, and imaging done at OSH showing choledocholithiasis, the patient will likely benefit from removal of his gallbladder. However, despite his elevated WBC, his imaging and lack of fever are suggestive that he will be stable for it to be done tomorrow rather than tonight. The patient's alcohol use is likely a contributing factor to his presentation and should be addressed prior to discharge. He will also need to be monitored with CIWA and started on lorazepam if he is scoring highly. Plan: ?? Admit to Acute Care Surgery Service in stable condition, Dr. Isabel Clark MD, attending ?? NPO at midnight ?? IV Fluids: at 100 mL/hr ?? Morning CBC, BMP, LFTs ?? Continue zosyn ?? Home CPAP ?? Pain control: scheduled acetaminophen, prn oxycodone for breakthrough ?? CIWA monitoring ?? Continue home lorazepam, venlafaxine ?? DVT prophylaxis: SCDs, SQH ?? GI prophylaxis: not indicated ?? DISPO: floor Skyler Adamson MD 11/13/2019 Acute Care Surgery Pager [phone] Attending Addendum I have seen and examined the patient and reviewed the history documented above and I agree with thedetails as written. I have reviewed the laboratory data and viewed the pertinent imaging. The assessment and plan were formulated in discussion with me and I agree with them as documented. 34 yo male with several day history of right sided abdominal pain made worse with eating. CT scan (non con) demonstrated distended GB and RUQ u/s showed gallbladder filled with stones but no wall thickending, pericholecystic fluid and nml cbd. PMH signficant for morbid obesity, SUDHA, anxiety. Continued pain on exam and elevated wbc. The risks benefits and alternatives laparoscopic cholecystectomy,possible open taz, possible fenestrated taz discussed with the patient and consent obtained. Plan for OR in the am 11/14/19. Maribel Clark MD documented in this encounter Miscellaneous Notes * Plan of Care - Tainya Rolle RN - 11/14/2019 6:42 PM EDT Patient discharged to home with no services. IV removed, site benign. Pt. Denies chest pain and shortness of breath. Discussed pain management with patient, pain tolerable. Patient medicated prior todischarge. Patient has all belongings and supplies needed. Discharge instructions and prescriptionswere given and reviewed. Requested change of pharmacy to [facility]. All questions answered.Patient verbalizes understanding. Patient encouraged to call with questions or concerns. Patient awaiting in room for ride to collect his vehicle and call up to floor. Will continue to monitor until ride arrives. * Plan of Care - Taniya Rolle RN - 11/14/2019 4:59 PM EDT Problem: Patient Care Overview Goal: Plan of Care Review Outcome: Ongoing (Interventions Implemented as Appropriate) 11/14/19 0337 11/14/19 0845 Coping/Psychosocial Plan Of Care Reviewed With -- patient Plan of Care Review Progress no change -- OUTCOME EVALUATION NOTE: ?? OUTCOME SUMMARY: ?? Marquez had a good day. VSS on RA. A&Ox4. Denies pain. Adequate UOP. NPO status maintained. To OR today around 0930. Pt returned to floor around 1600 s/p lap choly. VSS on RA. Ab lab incisions CDI. Pain controlled. Pt reports 10. OOB, able to stand at bedside and put pants on with no dizziness. Dinner ordered. Will continue to monitor. ?? PLAN MOVING FORWARD: Assess tolerance with dinner Possible d/c after dinner ?? INDIVIDUALIZED FALL PREVENTION INTERVENTIONS: ?? Patient-specific fall risk factors per assessment: [current deficits]: Recent surgery, narcotics for pain management, tethering lines and drains, generalized weakness, unfamiliar environment. ? Assistance [level of assistance required for transfers and ambulation]: SBA ?? Supervision [direct monitoring required during toileting and ADLs]: Eyes on ?? Surveillance [continuous indirect monitoring]: Environmental monitoring, purposeful rounding, ringscall more appropriately ?? Patient-specific fall prevention interventions for sensory deficits provided, if applicable: Non-skid slippers on, lighting adjusted, belongings within reach. ? CPG GOAL OUTCOME EVALUATION: * Op Note - Isabel Clark MD - 11/14/2019 1:57 PM EDT [facility] Operative Note Patient Name: René Wayne : [id number] MR#: [id number] Case Date: 11/14/2019 Surgeon: Surgeon(s) and Role: * Isabel Clark MD - Primary * Sai Allen MD - Resident Preoperative diagnosis: cholecystitis Postoperative diagnosis: Cholecystitis Procedure(s) (LRB): LAPAROSCOPIC [facility]LECYSTECT[facility]GRAM [facility] (N/A) Anesthesia: General ?? Findings: 1. Gall bladder acutely inflamed with necrotic wall, gallbladder tensely distended and decompressedwith needle to be able to grasp fundus 2. Cystic duct and cystic artery identified and critical view of safety obtained prior to clipping and dividing cystic duct and artery 3. Cholangiogram performed with good filling of the intrahepatic and common bile ducts, no filling defects and contrast emptied into the duodenum 4. Gallbladder removed from abdomen in Eco bag through the umbilical port but required expanded incision to 2 cm to accommodate the gallbladder 5. 22 modifier - Case significantly more difficult than normal due to super morbid obesity and extent of gallbladder necrosis ?? Complications: none ?? Estimated Blood Loss: 19 mL ?? Specimens removed during surgery: Order Name Source Comment Collection Info Order Time SPECIMEN TO PATHOLOGY ? cholecystitis GALLBLADDER AND CONTENTS excision 11/14/2019 12:58 PM Time specimen removed from patient: 12:53 PM ? Number of tissue samples (in container) 1 ? Fluids: Intraprocedure Crystalloid Total None ?? PRBCs: none (See Anesthesia Record/Report for Other Blood Products) Urine Output: 1100 mL ?? Drains: none ?? Disposition: awakened from anesthesia, extubated and taken to the recovery room in a stable condition, having suffered no apparent untoward event. ?? Condition: doing well without problems ?? (Please see the Surgical Encounter Summary for any Implant and Specimen details pertinent to this patient.) ?? HPI/Surgical Indications: 34 yo male with several day history of right sided abdominal pain made worse with eating. CT scan (non con) demonstrated distended GB and RUQ u/s showed gallbladder filled with stones but no wall thickending, pericholecystic fluid and nml cbd. PMH signficant for morbid obesity, SUDHA, anxiety. Continued pain on exam and elevated wbc. The risks benefits and alternatives laparoscopic cholecystectomy, possible open taz, possible fenestrated taz discussed with the patient and consent obtained. Plan for OR in the am 11/14/19. Procedure Description: The patient was identified in preoperative holding and was taken to the operating room and general anesthesia was induced. The abdomen was prepped and draped in the standard sterile fashion. Timeout was performed. Preoperative antibiotics were given. Incision was made In the LUQ and the abdomen wasentered with 5mm 0 degree scope and 150mm trocar using Optiview technique. The abdomen was insufflated to 15 mmHg pressure with CO2. A 12 mm port was then placed in the midline above the umbilicus. A10mm 30 degree scope was brought into the abdomen. All remaining trocars were inserted under directvisualization. The next trocar was an 11 mm trocar placed in the midline just below the xiphoid. Two 5 mm trocars were placed in the RUQ. An 11 mm trocar was placed in the right side of the abdomen. A fan retractor was brought in through this port to facilitate retraction of the intra-abdominal fat. The gallbladder was tensely distended and was decompressed with a decompression needle. The contents were sent for culture. A grasping forceps was placed on the fundus of the gallbladder and the gallbladder was retracted cephalad. Adhesions of omentum to the gallbladder were taken down bluntly. Using appropriate grasping instruments, the peritoneum overlying the triangle of Calot was incised. The cystic duct/gallbladder junction was identified and dissected circumferentially. A critical view of safety was achieved. The cystic artery was identified medially and was dissected circumferentially. A clip was then placed on the cystic duct/gallbladder junction and an intraoperative cholangiogramperformed using fluoroscopy, which showed good flow of dye into the duodenum. There were no intra- or extrahepatic bile duct filling defects. The biliary anatomy appeared normal. Following completionof the cholangiogram, the catheter was removed. Two clips were then placed proximally on the cysticduct and the duct divided. Two clips were placed proximally and one distally on the cystic artery, and the artery was divided. Remaining soft tissue attachments to the gallbladder to the liver bed were then divided using electrocautery. The 10mm was moved to the subxiphoid port site and an Eco bag was inserted through the supra umbilical port site. The gallbladder was placed in the Eco bag. The supra umbilical port site required expanded incision to 2 cm at the fascia and the skin to accommodate the gallbladder. The gallbladder was extracted through the supra umbilical port site. The gallbladder bed was inspected and excellent hemostasis was obtained. Irrigation was used and suctioned out and was clear. The trocars were removed under direct visualization. The umbilical trocar was removed and the fascial defect closed with the 0 PDS suture after evacuating the pneumoperitoneum. Hemostasis was achieved at all port sites.The skin was closed with a running 4-0 monocryl subcuticular stitchand the skin dressed with Dermabond. All counts were correct at the end of the case. The patient was extubated in the OR and returned to the recovery area in stable condition. Attestation: Case Date: 11/14/2019 ?? I was present and I participated during the entire procedure (does not need to include opening and closing). ?? ISABEL CLARK MD 11/14/2019 * Brief Op Note - Isabel Clark MD - 11/14/2019 1:53 PM EDT Brief Operative Note Patient Name: René Wayne : [id number] MR#: [id number] Case Date: 11/14/2019 Surgeon: Surgeon(s) and Role: * Isabel Clark MD - Primary * Sai Allen MD - Resident Preoperative diagnosis: cholecystitis Postoperative diagnosis: * No post-op diagnosis entered * Procedure(s) (LRB): LAPAROSCOPIC CHOLECYSTECTOMY WITH [facility]OLANGIOGRAM [facility]) (N/A) Anesthesia: General Findings: 1. Gall bladder acutely inflamed with necrotic wall, gallbladder tensely distended and decompressedwith needle to be able to grasp fundus 2. Cystic duct and cystic artery identified and critical view of safety obtained prior to clipping and dividing cystic duct and artery 3. Cholangiogram performed with good filling of the intrahepatic and common bile ducts, no filling defects and contrast emptied into the duodenum 4. Gallbladder removed from abdomen in Eco bag through the umbilical port but required expanded incision to 2 cm to accommodate the gallbladder 5. 22 modifier - Case significantly more difficult than normal due to super morbid obesity and extent of gallbladder necrosis Complications: none Estimated Blood Loss: 19 mL Specimens removed during surgery: Order Name Source Comment Collection Info Order Time SPECIMEN TO PATHOLOGY cholecystitis GALLBLADDER AND CONTENTS excision 11/14/2019 12:58 PM Time specimen removed from patient: 12:53 PM Number of tissue samples (in container) 1 Fluids: Intraprocedure Crystalloid Total None PRBCs: none (See Anesthesia Record/Report for Other Blood Products) Urine Output: 1100 mL Drains: none Disposition: awakened from anesthesia, extubated and taken to the recovery room in a stable condition, having suffered no apparent untoward event. Condition: doing well without problems (Please see the Surgical Encounter Summary for any Implant and Specimen details pertinent to this patient.) Attestation: Case Date: 11/14/2019 I was present and I participated during the entire procedure (does not need to include opening and closing). ISABEL CLARK MD 11/14/2019 * Plan of Care - Jaja Mckeon RN - 11/14/2019 3:42 AM EDT Problem: Patient Care Overview Goal: Plan of Care Review Outcome: Ongoing (Interventions Implemented as Appropriate) 11/14/19 0337 Coping/Psychosocial Plan Of Care Reviewed With patient Plan of Care Review Progress no change OUTCOME EVALUATION NOTE: OUTCOME SUMMARY: Patient is voiding in bathroom. Pain level 2-3/10. Scheduled tylenol effective. He was NPO overnight. IVF's maintained. IV antibiotics administered as ordered. He wore his bipap overnight. Ativan scale done while awake. One time dose of ativan given with good effect. Bp's remain elevated, but belowparameters. Tachy at times. Asymptomatic. Will continue to monitor. PLAN MOVING FORWARD: Plan for OR in am INDIVIDUALIZED FALL PREVENTION INTERVENTIONS: Patient-specific fall risk factors per assessment: [current deficits]: Unfamiliar environment, painwith movement/ambulation Assistance [level of assistance required for transfers and ambulation]: Independent, non-skid shoes/slippers Supervision [direct monitoring required during toileting and ADLs]: Eyes on, hands on Surveillance [continuous indirect monitoring]: Purposeful rounding, call more in reach, direct observation Patient-specific fall prevention interventions for sensory deficits provided, if applicable: Lighting adjusted for task/safety CPG GOAL OUTCOME EVALUATION: Goal: Fall Prevention-Safe Patient Handling Outcome: Ongoing (Interventions Implemented as Appropriate) 11/13/19 2100 Starks Fall Risk History of Falling 0 Secondary Diagnosis 15 Ambulatory Aids 0 Intravenous Therapy/Heparin/Saline Lock 20 Gait/Transferring 0 Mental Status 0 Score 35 OTHER Starks Fall Risk Med Restraint Interventions Safety Promotion/Fall Prevention fall prevention program maintained;nonskid shoes/slippers when outof bed;safety round/check completed Positioning Body Position independent Activity Activity Type ambulated to bathroom;up ad gregory Activity Assistance Provided independent Assistive Device Utilized none Goal: Infection Control Outcome: Ongoing (Interventions Implemented as Appropriate) 11/13/19 2100 Safety Interventions Isolation Precautions standard precautions maintained Infection Prevention environmental surveillance performed;rest/sleep promoted Coping Strategies Supportive Measures active listening utilized;verbalization of feelings encouraged Goal: Interdisciplinary Rounds/Family Conf Outcome: Ongoing (Interventions Implemented as Appropriate) 11/14/19 0337 Interdisciplinary Rounds/Family Conf Participants patient;nursing;physician documented in this encounter Plan of Treatment Upcoming Encounters Date Type Department Care Team (Late st Contact Info) Description 08/17/2024 11:00 AM EST Office [place] [address] Lamar Alonzo MD [facility] [address] [place] [address] Pending Results Name Type Priority Associated Diagnoses Date /Time XR Fluoro <1Hr - Radiology Use Imaging Routine 11/14/2019 1:14 PM EDT Scheduled Orders Name Type Priority Associated Diagnoses Orde r Schedule XR Fluoro <1Hr - Radiology Use Imaging Routine Once PRN (for Ra diant use) for 1 Occurrences starting 11/14/2019 until 11/14/2019 documented as of this encounter Procedures Procedure Name Priority Date/Time Associated Diagnosis Comments SPECIMEN TO PATHOLOGY Routine 11/14/2019 12:59 PM EDT SURGICAL PATHOLOGY REPORT Routine 11/14/2019 12:53 PM EDT ANAEROBIC CULTURE Routine 11/14/2019 11: 40 AM EDT HC BODY FLUID CULTURE Routine 11/14/2019 11:40 AM EDT HC MYCOBACTERIA CULTURE Routine 11/14/19 20 11:40 AM EDT BODY FLUID CULTURE, AEROBIC Routine 11/14/2019 11:40 AM EDT HC FUNGUS CULTURE, MISC SOURCE Routine 11/14/2019 11:40 AM EDT Lap, Cholecystectomy/Graph ([id number]) 11/14/2019 10:26 AM EDT cholecystitis HEMOGRAM Routine 11/14/2019 4:06 AM EDT DIFFERENTIAL, AUTOMATED Routine 11/14/19 20 4:06 AM EDT HC CBC,PLT & AUTO DIFF Routine 0 4:06 AM EDT HC PHOSPHORUS, SERUM Routine 11/14/2019 4:06 AM EDT HC MAGNESIUM, SERUM Routine 11/14/2019 4 :06 AM EDT HC VENIPUNCTURE Routine 11/14/2019 4:06 AM EDT BASIC METABOLIC PANEL Routine 11/14/2019 4:06 AM EDT ABORH RECHECK STATUS Routine 11/13/2019 7:55 PM EDT ABO/RH TYPING Routine 11/13/2019 7:55 PM EDT ANTIBODY SCREEN Routine 11/13/2019 7:55 PM EDT HC ANTIBODY DETECTION,CAPTURE-R Routine 11/13/2019 7:55 PM EDT LAPAROSCOPIC CHOLECYSTECTOMY WITH CHOLANGIOGRAM Routine 11/13/2019 5:58 PM EDT documented in this encounter Results * Specimen to Pathology (11/14/2019 12:59 PM EDT) AP Specimen 11/14/2019 12:5 9 PM EDT 11/14/2019 12:59 PM EDT [facility] - 11/14/2019 12:59 PM EDT Specimen requisition ordered. ??Separate Pathology report to follow Isabel Clark MD PATHOLOGY/CYTOLOGY O RDERABLES [facility] [place] [address] * Surgical Pathology Report (11/14/2019 12:53 PM EDT) Final Diagnosis [id number] ? Location: 4WST; [facility]; A The signing pathologist has (i) examined the relevant preparation(s) for the specimen(s) and (ii) rendered or confirmed the diagnosis(es). . ?Surgical Pathology DIAGNOSIS Gallbladder and contents: - ??Acute and chronic cholecystitis. - Cholelithiasis. Electronically signed by: ??Cassius Rahman MD Verified: ??11/16/2019 ?Pathologist Performed at: ??-[facility] Dept. of Pathology, [place], [place] SPECIMEN(S) SUBMITTED A - GALLBLADDER AND CONTENTS, excision (1) CLINICAL INFORMATION Cholecystitis SPECIMEN PROCESSING A - Labeled/Fixative: Gallbladder and contents, fresh. Quantity/Size: ??Single, 12 x 4.5 x 2.5 cm. Specimen Description: Gallbladder, received intact. Serosa: Pale pink-yellow glistening Adventitia: Culp-yellow ragged Lumen contents: Bile is absent Gallstones: Present: Multiple, culp-yellow gallstones averaging, 1.5 x 1.3 x 1 cm Mucosa: Culp-yellow glistening Wall: 0.3-0.6 cm thick. Duct: 0.3 cm, patent. Lymph Node: Not identified. Ink Designation: The hepatic margin is inked black Sections/Processi ng: [employer] Goods Repairer sections in 2 cassettes as follows: ?A1: ??Cystic duct margin and technical service representative section ?A2: ??Additional technical service representative ??kristyn 11/16/2019 12:47 PM EDT [facility] GALLBLADDER STRUCTURE / Unknown 11/14/2019 12:53 PM EDT 11/14/2019 12:53 PM EDT Isabel Clark MD PATHOLOGY/CYTOLOGY O RDERABLES Performing Organization Address [facility]/ZIP Co de Phone Number [facility] [place] [address] * Anaerobic Culture (11/14/2019 11:40 AM EDT) Anaerobic Culture No anaerobic organisms isolated [facility] Bile specimen (specimen) 11/14/2019 11:40 AM EDT 11/14/2019 12:32 PM EDT Comment:GALLBLADDER CONTENTS FOR CULTURE - AEROBIC, ANAROBIC, FUNGAL AND AFB Narrative Resulting Agency Comment Spec In Lab Isabel Clark MD MICROBIOLOGY - GENER AL ORDERABLES Performing Organization Address [facility] Co de Phone Number [facility] [place] [address] * Body Fluid Culture, Aerobic (11/14/2019 11:40 AM EDT) Body Fluid Culture No growth [facility] Gram Stain Cytocentrifuge Gram Stain performed No Neutrophils seen. No microorganisms seen. [facility] Bile specimen (specimen) 11/14/2019 11:40 AM EDT 11/14/2019 12:32 PM EDT Comment:GALLBLADDER CONTENTS FOR CULTURE - AEROBIC, ANAROBIC, FUNGAL AND AFB Narrative Resulting Agency Comment Spec In Lab Isabel Clark MD MICROBIOLOGY - GENER AL ORDERABLES Performing Organization Address [facility] Co de Phone Number [facility] [place] [address] * Fungus culture Gallbladder (11/14/2019 11:40 AM EDT) Fungus Culture No Fungus isolated [facility] Specimen from gallbladder (specimen) 11/14/2019 11:40 AM EDT 11/14/2019 12:32 PM EDT Comment:GALLBLADDER CONTENTS FOR CULTURE - AEROBIC, ANAROBIC, FUNGAL AND AFB Narrative Resulting Agency Comment Spec In Lab Isabel Clark MD MICROBIOLOGY - GENER AL ORDERABLES Performing Organization Address City/[facility]/ZIP Co de Phone Number [facility] [place] [address] * AFB culture Gallbladder (11/14/2019 11:40 AM EDT) Acid Fast Bacilli Culture No Acid Fast Bacilli isolated [facility] Acid Fast Stain No Acid Fast Bacilli seen [facility] Specimen from gallbladder (specimen) 11/14/2019 11:40 AM EDT 11/14/2019 12:32 PM EDT Comment:GALLBLADDER CONTENTS FOR CULTURE - AEROBIC, ANAROBIC, FUNGAL AND AFB Narrative Resulting Agency Comment Spec In Lab Isabel Clark MD MICROBIOLOGY - GENER AL ORDERABLES Performing Organization Address [facility] Co de Phone Number [facility] [place] [address] * (ABNORMAL) Differential, Automated (11/14/2019 4:06 AM EDT) Neutrophil % 71.8 % [facility] Neutrophil Absolute 7.47(H) 1.70 - 6.10 x10(3)/mc L [facility] Lymph % 17.7 % [facility] Lymphocytes Abs 1.8 0.9 - 3.2 x10(3)/mc L [facility] Monocyte % 7.8 % [facility] Monocyte Abs 0.8 0.3 - 0.9 x10(3)/mc L [facility] Eos % 1.5 % [facility] Eosinophils Abs 0.2 0.0 - 0.4 x10(3)/mc L [facility] Basophil % 0.5 % [facility] Baso Absolute 0.0 0.0 - 0.1 x10(3)/mc L [facility] Immature Gran % 0.70 % [facility] Comment: Immature granulocytes(IG's)percentage and absolute count will include metamyelocytes, myelocytes, and promyelocytes. Blood smears from CBCs yielding IG's will be scanned manually for concordance. If this scan disagrees with the automated IG or if promyelocytes are noted, a manual differential will be performed. Immature Gran Absolute 0.07(H) 0.00 - 0.04 x10(3)/ L [facility] Blood specimen (specimen) 11/14/2019 4:06 AM EDT 11/14/2019 4:42 AM EDT Narrative Resulting Agency Comment Spec In Lab Skyler Adamson MD HEMATOLOGY ORD ERABLES [facility] [place] [address] * (ABNORMAL) Hemogram (11/14/2019 4:06 AM EDT) White Blood Cell 10.4(H) 4.0 - 9.5 x10(3)/[facility] Red Blood Cell 5.17 4.58 - 5.54 x10(6)/[facility] Hemoglobin 13.9 13.7 - 16.5 gm/dL [facility] Hematocrit 44.4 40.5 - 48.5 % [facility] Mean Cell Volume 85.9 82.9 - 93.1 fL [facility] Mean Cell Hemoglobin 26.9(L) 27.5 - 32.1 pg [facility] Mean Cell Hemoglobin Concentration 31.3(L) 32.0 - 35.7 gm/dL [facility] Platelet 292 145 - 357 x10(3)/ L [facility] RDW Standard Deviation 46.4(H) 36.0 - 45.0 fL [facility] RDW coefficient of variation 14.8(H) 11.4 - 13.8 % [facility] Mean Platelet Volume 8.9 7.6 - 12.9 fL [facility] NRBC% auto 0.0 % [facility] NRBC Absolute 0.000 0.000 - 0.000 x10(3)/mc L [facility] Blood specimen (specimen) 11/14/2019 4:06 AM EDT 11/14/2019 4:42 AM EDT Narrative Resulting Agency Comment Spec In Lab Skyler Adamson MD HEMATOLOGY ORD ERABLES [facility] [place] [address] * Phosphorus (11/14/2019 4:06 AM EDT) Phosphorus 3.7 2.5 - 4.5 mg/dL [facility] Blood specimen (specimen) 11/14/2019 4:06 AM EDT 11/14/2019 4:42 AM EDT Narrative Resulting Agency Comment Spec In Lab Isabel Clark MD CHEMISTRY ORDERABLES Performing Organization Address [facility] Co de Phone Number [facility] [place] [address] * Magnesium (11/14/2019 4:06 AM EDT) Magnesium 0.94 0.69 - 1.07 mmol/L [facility] Blood specimen (specimen) 11/14/2019 4:06 AM EDT 11/14/2019 4:42 AM EDT Narrative Resulting Agency Comment Spec In Lab Isabel Clark MD CHEMISTRY ORDERABLES Performing Organization Address [facility] Co de Phone Number [facility] [place] [address] * (ABNORMAL) Basic Metabolic Panel (non-fasting) (11/14/2019 4:06 AM EDT) Glucose 115 65 - 199 mg/dL [facility] Comment:Diabetes: >=200 mg/d L plus symptoms Blood Urea Nitrogen 10 10 - 20 mg/dL [facility] Creatinine 0.71(L) 0.80 - 1.50 mg/dL [facility] Sodium 140 135 - 145 mmol/L [facility] Potassium 3.9 3.5 - 5.0 mmol/L [facility] Comment: Please note: ??Patients with WBC >100,000 may have falsely elevated Potassium levels. ??For accurate Potassium quantification in these patients send serum separator tube (gold top) for subsequent determinations. ??Contact the Clinical Chemistry Laboratory if there are any questions. Chloride 102 98 - 107 mmol/L [facility] Carbon Dioxide 26 22 - 31 mmol/L [facility] Anion Gap 12 5 - 15 mmol/L [facility] Calcium 9.3 8.5 - 10.5 mg/dL [facility] Est Glomerular Filtration Rate 123 >=60 mL/min/1. 73 m?? [facility] Comment: The eGFR was calculated using the CKD-EPI equation. As with all creatinine based estimates of kidney function, eGFR values calculated with the CKD-EPI equation are not accurate in patients with acute kidney failure, extremes of body mass or the acutely ill. [email or web address] eGFR 143 >=60 mL/min/1. 73 m?? [facility] Comment: The eGFR was calculated using the CKD-EPI equation. As with all creatinine based estimates of kidney function, eGFR values calculated with the CKD-EPI equation are not accurate in patients with acute kidney failure, extremes of body mass or the acutely ill. [email or web address] Blood specimen (specimen) 11/14/2019 4:06 AM EDT 11/14/2019 4:42 AM EDT Narrative Resulting Agency Comment Spec In Lab Isabel Clark MD CHEMISTRY ORDERABLES [facility] [place] [address] * Hepatic Function Panel (11/14/2019 4:06 AM EDT) [facility] Protein, Total 6.7 6.1 - 8.0 gm/dL [facility] Albumin 3.8 3.2 - 5.2 gm/dL [facility] Aspartate Aminotransferase 23 0 - 39 unit/L [facility] Alanine Aminotransferase 54 0 - 55 unit/L [facility] Alkaline Phosphatase 67 40 - 130 unit/L [facility] Bilirubin, Total 0.7 0.2 - 1.3 mg/dL [facility] Bilirubin, Direct 0.1 0.0 - 0.3 mg/dL [facility] Blood specimen (specimen) 11/14/2019 4:06 AM EDT 11/14/2019 4:42 AM EDT Narrative Resulting Agency Comment Spec In Lab Isabel Clark MD CHEMISTRY ORDERABLES [facility] [place] [address] * ABORH Recheck Status (11/13/2019 7:55 PM EDT) [facility] ABORH Recheck Order Order Placed [facility] ABORH Type Recheck Complete [facility] Blood specimen (specimen) 11/13/2019 7:55 PM EDT 11/13/2019 8:23 PM EDT Narrative Resulting Agency Comment Spec In Lab Melvin Fraser MD BLOOD BANK LAB ORDER CARON [facility] [place] [address] * Antibody screen (11/13/2019 7:55 PM EDT) [facility] Ab Screen Interp Negative [facility] Expires at [id number] on: 11/16/2019 [facility] Blood specimen (specimen) 11/13/2019 7:55 PM EDT 11/13/2019 8:23 PM EDT Narrative Resulting Agency Comment Spec In Lab Melvin Fraser MD BLOOD BANK LAB ORDER CARON Performing Organization Address City/[facility]/ZIP Co de Phone Number [facility] [place] [address] * ABO/Rh Typing (11/13/2019 7:55 PM EDT) Pathologist [facility] ABOR Type A Neg [facility] Blood specimen (specimen) 11/13/2019 7:55 PM EDT 11/13/2019 8:23 PM EDT Narrative Resulting Agency Comment Spec In Lab Melvin Fraser MD BLOOD BANK LAB ORDER CARON Performing Organization Address [facility] Co de Phone Number [facility] [place] [address] documented in this encounter Visit Diagnoses Not on filedocumented in this encounter Admitting Diagnoses Diagnosis Acute cholecystitis documented in this encounter Administered Medications Inactive Administered Medications - up to 3 most recent administrations Medication Order MAR Action Action Date Dose Rate Site acetaminophen (Tylenol) tablet 650 mg 650 mg, Oral, EVERY 6 HOURS SCHEDULED, First dose on Tue11/13/19 at 1900, Until Discontinued, Maximum dose of acetaminophen is 4000 mg from all sources in 24 hours., Routine Given 11/14/2019 2:20 PM EDT 650 mg Given 11/14/2019 2:59 AM EDT 650 mg Given 11/13/2019 9:18 PM EDT 650 mg BUpivacaine (PF) (MARCAINE) 0.25 % (2.5 mg/mL) injection ONCE PRN, Starting on Tue11/14/19 at 1355, Until Tue11/14/19 at 2139, Intra-Operative (Intra-Procedure), Routine Given 11/14/2019 1:55 PM EDT 30 mLs 19- Surgical Site BUpivacaine (PF) (MARCAINE) 0.5 % (5 mg/mL) injection ONCE PRN, Starting on Tue11/14/19 at 1107, Until Tue11/14/19 at 2139, Intra-Operative (Intra-Procedure), Routine Given 11/14/2019 11:07 AM EDT 30 mLs 19- Surgical Site heparin (Porcine) subcutaneous injection 5,000 Units 5,000 Units, Subcutaneous, EVERY 8 HOURS SCHEDULED, First dose on Tue11/13/19 at 2200, Until Discontinued, Routine Given 11/14/2019 6:21 AM EDT 5,000 Units Given 11/13/2019 9:40 PM EDT 5,000 Units hydrALAZINE (APRESOLINE) injection 5 mg 5 mg, Intravenous, EVERY 6 HOURS PRN, Starting on Tue11/13/19 at 1850, Until Tue11/14/19 at 2138, High Blood Pressure, for SBP>170 unrelieved by labetalol ibuprofen (Advil;Motrin) tablet 600 mg 600 mg, Oral, EVERY 6 HOURS PRN, Starting on Tue11/14/19 at 1758, Until Tue11/14/19 at 2138, Pain, Administer orally with milk or food to minimize GI irritation. Maximum dose of 3200 mg from all sources in 24 hours, Routine Given 11/14/2019 6:17 PM EDT 600 mg iohexoL (OMNIPAQUE) 300 mg/mL solution ONCE PRN, Starting on Tue11/14/19 at 1241, Until Tue11/14/19 at 2138, Intra-Operative (Intra-Procedure), Routine Given 11/14/2019 12:41 PM EDT 20 mLs 19- Surgical Site labetalol (NORMODYNE,TRANDATE) injection 10 mg 10 mg, Intravenous, EVERY 2 HOURS PRN, Starting on Tue11/13/19 at 1849, Until Tue11/14/19 at 2138, High Blood Pressure, For SBP>170, Routine lactated ringers infusion 100 mL/hr, Intravenous, CONTINUOUS, Starting on Tue11/13/19 at 1900, Until Tue11/14/19 at 1606 New Bag 11/14/2019 7:52 AM EDT 100 mL/hr 100 mL/hr New Bag 11/13/2019 9:30 PM EDT 100 mL/hr 100 mL/hr lidocaine (XYLOCAINE) 10 mg/mL (1 %) injection 3 mg 3 mg (0.3 mL), Subcutaneous, ONCE PRN, 1 dose, Starting on Tue11/13/19 at 1846, Until Tue11/14/19 at 2139, for discomfort with PIV insertion, Routine LORazepam (Ativan) tablet 0.5 mg 0.5 mg, Oral, ONCE, 1 dose, On Tue11/13/19 at 1900, Routine Given 11/13/2019 9:18 PM EDT 0.5 mg LORazepam (Ativan) tablet 0.5 mg 0.5 mg, Oral, 2 TIMES DAILY, First dose (after last modification) on Tue11/14/19 at 2100, Until Discontinued, Routine melatonin tablet 3 mg 3 mg, Oral, NIGHTLY PRN, Starting on Tue11/13/19 at 1854, Until Tue11/14/19 at 2139, insomnia, Routine oxyCODONE (Roxicodone) tablet 5 mg 5 mg, Oral, EVERY 4 HOURS PRN, Starting on Tue11/13/19 at 1841, Until Tue11/14/19 at 1758, Pain, Routine Given 11/14/2019 3:34 PM EDT 5 mg piperacillin-tazobactam (ZOSYN) 3.375 g vial attach to sodium chloride 0.9% 50 mL Mini-Bag Plus 3.375 g, Intravenous, EVERY 8 HOURS, First dose on Tue11/13/19 at 2000, Until Discontinued, Administer over 4 Hours, Warning Vesicant/Irritant Medication Do not administer or Y-site with lactated ringers., Indication for (Active or Suspected): GI/Intra-abdominal Bolus 11/14/2019 10:50 AM EDT 3.375 g New Bag 11/14/2019 4:01 AM EDT 3.375 g 12.5 mL/hr New Bag 11/13/2019 9:24 PM EDT 3.375 g 12.5 mL/hr sodium chloride 0.9 % (flush) flush 5 mL 5 mL, Intravenous, 2 TIMES DAILY, First dose on Tue11/13/19 at 2100, Until Discontinued, Routine Given 11/13/2019 9:30 PM EDT 5 mLs sodium chloride 0.9 % (flush) flush 5-20 mL 5-20 mL, Intravenous, EVERY 1 MIN PRN, Starting on Tue11/13/19 at 1846, Until Tue11/14/19 at 2139, flush, Flush pertains to all indwelling lines. Flush per protocol found in the job aid using the link provided on this medication record., Routine venlafaxine XR (Effexor-XR) capsule 225 mg 225 mg, Oral, DAILY WITH BREAKFAST, First dose on Tue11/14/19 at 0800, Until Discontinued, DO NOT CRUSH OR OPEN, Routine Given 11/14/2019 7:44 AM EDT 225 mg documented in this encounter Active and Recently Administered Medications Times are shown in EDT. Scheduled Medication Order 11/12/2019 11/13/2019 11/14/2019 acetaminophen (Tylenol) tablet 650 mg 650 mg, Oral, EVERY 6 HOURS SCHEDULED, First dose on Tue11/13/19 at 1900, Until Discontinued, Maximum dose of acetaminophen is 4000 mg from all sources in 24 hours., Routine 2117 (Given - Provider: Sherry Balderas RN) 0259 (Given - Provider: Jaja Mckeon, MAXIMUS)0900 (Not Given - Provider: Taniya Rolle RN - Reason: Patient/family refused)1028 (SEP Hold - Provider: Admin Adt - Reason: Transfer to a Procedural area)1415 (SEP Unhold - Provider: Zulma Gill, MAXIMUS)1420 (Given - Provider: Zulma Gill RN) heparin (Porcine) subcutaneous injection 5,000 Units 5,000 Units, Subcutaneous, EVERY 8 HOURS SCHEDULED, First dose on Tue11/13/19 at 2200, Until Discontinued, Routine 2140 (Given - Provider: Sherry Balderas RN) 0621 (Given - Provider: Jaja Mckeon, MAXIMUS)1028 (SEP Hold - Provider: Admin Adt - Reason: Transfer to a Procedural area)1400 (Not Given - Provider: Taniya Rolle RN - Reason: Transfer to a Procedural area)1605 (MAR Unhold - Provider: Admin Adt) LORazepam (Ativan) tablet 0.5 mg (COMPLETED) 0.5 mg, Oral, ONCE, 1 dose, On Tue11/13/19 at 1900, Routine 2117 (Given - Provider: Sherry Balderas RN) LORazepam (Ativan) tablet 0.5 mg 0.5 mg, Oral, 2 TIMES DAILY, First dose (after last modification) on Tue11/14/19 at 2100, Until Discontinued, Routine piperacillin-tazobactam (ZOSYN) 3.375 g vial attach to sodium chloride 0.9% 50 mL Mini-Bag Plus (CANCELED) 3.375 g, Intravenous, EVERY 8 HOURS, First dose on Tue11/13/19 at 2000, Until Discontinued, Administer over 4 Hours, Warning Vesicant/Irritant Medication Do not administer or Y-site with lactated ringers., Indication for (Active or Suspected): GI/Intra-abdominal 2124 (New Bag - Provider: Sherry Balderas, MAXIMUS) 0124 (Stopped - Provider: Jaja Mckeon, MAXIMUS)0401 (New Bag - Provider: Jaja Mckeon, MAXIMUS)0801 (Stopped - Provider: Taniya Rolle RN)1028 (MAR Hold - Provider: Admin Adt - Reason: Transfer to a Procedural area)1050 (Bolus - Provider: Ilan Jimenez CRNA)1200 (Automatically Held - Provider: Admin Adt)1605 (MAR Unhold - Provider: Admin Adt) sodium chloride 0.9 % (flush) flush 5 mL 5 mL, Intravenous, 2 TIMES DAILY, First dose on Tue11/13/19 at 2100, Until Discontinued, Routine 2130 (Given - Provider: Sherry Balderas RN) 0900 (Not Given - Provider: Taniya Rolle RN - Reason: See comment - Comment: infusing)1028 (SEP Hold - Provider: Admin Adt - Reason: Transfer to a Procedural area)1605 (MAR Unhold - Provider: Admin Adt) venlafaxine XR (Effexor-XR) capsule 225 mg 225 mg, Oral, DAILY WITH BREAKFAST, First dose on Tue11/14/19 at 0800, Until Discontinued, DO NOT CRUSH OR OPEN, Routine 0744 (Given - Provid er: Taniya Rolle RN)1028 ([facility] Hold - Provider: Admin Adt - Reason: Transfer to a Procedural area)1605 ([facility] Unhold - Provider: Admin Adt) Continuous Medication Order 11/12/2019 11/13/2019 11/14/2019 lactated ringers infusion (CANCELED) 100 mL/hr, Intravenous, CONTINUOUS, Starting on Tue11/13/19 at 1900, Until Tue11/14/19 at 1606 2130 (New Bag - Provider: Sherry Balderas RN) 0752 (New Bag - Provider: Taniya Rolle RN)1028 (SEP Hold - Provider: Admin Adt - Reason: Transfer to a Procedural area)1605 (SEP Unhold - Provider: Admin Adt) PRN Medication Order 11/12/2019 11/13/2019 11/14/2019 BUpivacaine (PF) (MARCAINE) 0.25 % (2.5 mg/mL) injection (CANCELED) ONCE PRN, Starting on Tue11/14/19 at 1355, Until Tue11/14/19 at 2138, Intra-Operative (Intra-Procedure), Routine 1355 (Given - Provid er: Sai Allen) BUpivacaine (PF) (MARCAINE) 0.5 % (5 mg/mL) injection (CANCELED) ONCE PRN, Starting on Tue11/14/19 at 1107, Until Tue11/14/19 at 2138, Intra-Operative (Intra-Procedure), Routine 1107 (Given - Provid er: Sai Allen) hydrALAZINE (APRESOLINE) injection 5 mg 5 mg, Intravenous, EVERY 6 HOURS PRN, Starting on Tue11/13/19 at 1850, Until Tue11/14/19 at 2138, High Blood Pressure, for SBP>170 unrelieved by labetalol 1028 (SEP Hold - Pro vider: Admin Adt - Reason: Transfer to a Procedural area)1605 ([facility] Unhold - Provider: Admin Adt) ibuprofen (Advil;Motrin) tablet 600 mg 600 mg, Oral, EVERY 6 HOURS PRN, Starting on Tue11/14/19 at 1758, Until Tue11/14/19 at 2138, Pain, Administer orally with milk or food to minimize GI irritation. Maximum dose of 3200 mg from all sources in 24 hours, Routine 1817 (Given - Provid er: Taniya Rolle RN) iohexoL (OMNIPAQUE) 300 mg/mL solution (CANCELED) ONCE PRN, Starting on Tue11/14/19 at 1241, Until Tue11/14/19 at 2138, Intra-Operative (Intra-Procedure), Routine 1241 (Given - Provid er: Sai Allen) labetalol (NORMODYNE,TRANDATE) injection 10 mg 10 mg, Intravenous, EVERY 2 HOURS PRN, Starting on Tue11/13/19 at 1849, Until Tue11/14/19 at 2139, High Blood Pressure, For SBP>170, Routine 1028 ([facility] Hold - Pro vider: Admin Adt - Reason: Transfer to a Procedural area)1605 ([facility] Unhold - Provider: Admin Adt) lidocaine (XYLOCAINE) 10 mg/mL (1 %) injection 3 mg 3 mg (0.3 mL), Subcutaneous, ONCE PRN, 1 dose, Starting on Tue11/13/19 at 1846, Until Tue11/14/19 at 2139, for discomfort with PIV insertion, Routine 1028 ([facility] Hold - Pro vider: Admin Adt - Reason: Transfer to a Procedural area)1605 ([facility] Unhold - Provider: Admin Adt) melatonin tablet 3 mg 3 mg, Oral, NIGHTLY PRN, Starting on Tue11/13/19 at 1854, Until Tue11/14/19 at 2139, insomnia, Routine 1028 ([facility] Hold - Pro vider: Admin Adt - Reason: Transfer to a Procedural area)1605 ([facility] Unhold - Provider: Admin Adt) ondansetron (ZOFRAN) injection 4 mg 4 mg, Intravenous, EVERY 8 HOURS PRN, Starting on Tue11/13/19 at 1841, Until Tue11/14/19 at 2139, Nausea 1028 ([facility] Hold - Pro vider: Admin Adt - Reason: Transfer to a Procedural area)1605 ([facility] Unhold - Provider: Admin Adt) oxyCODONE (Roxicodone) tablet 5 mg (CANCELED) 5 mg, Oral, EVERY 4 HOURS PRN, Starting on Tue11/13/19 at 1841, Until Tue11/14/19 at 1758, Pain, Routine 1028 ([facility] Hold - Pro vider: Admin Adt - Reason: Transfer to a Procedural area)1415 (MAR Unhold - Provider: Zulma Gill, RN)1534 (Given - Provider: Zulma Gill, MAXIMUS) sodium chloride 0.9 % (flush) flush 5-20 mL 5-20 mL, Intravenous, EVERY 1 MIN PRN, Starting on Tue11/13/19 at 1846, Until Tue11/14/19 at 2139, flush, Flush pertains to all indwelling lines. Flush per protocol found in the job aid using the link provided on this medication record., Routine 1028 (MAR Hold - Pro vider: Admin Adt - Reason: Transfer to a Procedural area)1605 (SEP Unhold - Provider: Admin Adt) documented in this encounter Care Teams Quality Control Engineering Technician Relationship Specialty Start Date End Date Pipo Frazier PA [address] [place] [address] PCP - General General Internal Medicine 11/28/1501/12 documented as of this encounter
--- OUTSIDE RECORDS SUMMARY | 2024-07-13 14:56 | XMS_ITS | Encounter Summary ---
[place] [address] Care Team Providers Care Personnel Research Scientist Name Role Phone Keena Rosales APRN Primary Care Provider [phone] Reason for Referral * Consultation (Routine) - Closed Specialty Diagnoses / Procedures Referred By Alma t Referred To Contact Hematology and Oncology Diagnoses Anemia, unspecified type Iron deficiency anemia, unspecified iron deficiency anemia type Keena Rosales APRN [address] [place] [address] [facility] [address] [place] [address] Referral ID Status Reason Start Date Expiration Date V isits Requested Visits Authorized [id number] Closed Consult, Test & Treat PCP Updated and/or Approved 08/26/2022 08/26/2023 12 12 Encounter Details Date Type Department Care Team (Latest Contact Info) Description 08/26/2022 Transcribe Orders eDH Incoming Referrals [phone] Keena Rosales APRN [address] [place] [address] Anemia, unspecified type; Iron deficiency anemia, unspecified iron deficiency anemia type Social History Tobacco Use Types Packs/Day [...] AM EST Office [place] [address] Lamar Alonzo MD [facility] [address] [facility] [place] [address] Scheduled Referrals Name Type Priority Associated Diagnoses Orde r Schedule Referral to Hematology and Oncology Outpatient Referral Routine Anemia, unspecified type Iron deficiency anemia, unspecified iron deficiency anemia type Ordered: 08/26/2022 documented as of this encounter Visit Diagnoses Diagnosis Anemia, unspecified type Iron deficiency anemia, unspecified iron deficiency anemia type documented in this encounter Care Teams Personnel Research Scientist Relationship Specialty Start Date End Date Keena Rosales APRN [address] [place] [address] PCP - General Family Medicine 11/04/21 documented as of this encounter
--- OUTSIDE RECORDS SUMMARY | 2024-07-13 14:56 | XMS_ITS | Encounter Summary ---
Author Organization [facility]ly [facility] [place] [address] Care Team Providers Care Contact Clerk Name Role Phone Keena Rosales APRN Primary Care Provider [phone] Encounter Details Date Type Department Care Team (Latest Contact Info) Description 08/24/2022 Travel Social History Tobacco Use Types Packs/Day [...] AM EST Office [place] [address] Lamar Alonzo MD [facility] DR [facility] [place] [address] documented as of this encounter Visit Diagnoses Not on filedocumented in this encounter Care Teams Contact Clerk Relationship Specialty Start Date End Date Keena Rosales APRN [address] [place] [address] PCP - General Family Medicine 11/04/21 documented as of this encounter
--- OUTSIDE RECORDS SUMMARY | 2024-07-13 14:56 | XMS_ITS | Encounter Summary ---
Author Organization [facility] [place] [address] Care Team Providers Care Legal Assistant Name Role Phone Keena Rosales YEYO Primary Care Provider [phone] Encounter Details Date Type Department Care Team (Late st Contact Info) Description 09/03/2022 External Results [place] [phone] Ember Love, RN Social History Tobacco Use Types Packs/Day [...] AM EST Office [place] [address] Lamar Alonzo MD [facility] DR [facility] [place], [place] [id number] documented as of this encounter Procedures Procedure Name Priority Date/Time Associated Diagnosis Comments [facility] EXTERNAL LABS 2 Routine 08/23/2022 documented in this encounter Results * (ABNORMAL) [facility] Labs 2 - External (08/23/2022) Glucose Fasting 105 Sodium 140 Potassium 4.6 Chloride 104 Carbon Dioxide 29 Blood Urea Nitrogen 16 Creatinine 0.7 Est Glomerular Filtration Rate >60 Aspartate Aminotransferase 20 Alanine Aminotransferase 46 Hemoglobin 13.2(L) Hematocrit 39.6(L) White Blood Cell 7.47 Platelet 311 Iron 58(L) TIBC 311 08/23/2022 Historical Provider MD EXTERNAL LAB [facility]ILLA [facility] documented in this encounter Visit Diagnoses Not on filedocumented in this encounter Care Teams Legal Assistant Relationship Specialty Start Date End Date Keena Rosales APRN [address] [place] [address] PCP - General Family Medicine 11/04/21 documented as of this encounter
--- OUTSIDE RECORDS SUMMARY | 2024-07-13 14:56 | XMS_ITS | Encounter Summary ---
Author Organization [facility] [place] [address] Care Team Providers Care Lumber Carrier Name Role Phone Keena Rosales YEYO Primary Care Provider [phone] Encounter Details Date Type Department Care Team (Late st Contact Info) Description 08/19/2022 External [place] [address] Ember Love, RN Social History Tobacco Use [...] AM EST [place] [address] [facility] [address] [facility] [place] [address] documented as of this encounter Procedures Procedure Name Priority Date/Time Associated Diagnosis Comments [facility] EXTERNAL LABS 2 Routine 04/22/2022 [facility] EXTERNAL LABS 2 Routine 02/12/2022 documented in this encounter Results * [facility] Labs 2 - External (04/22/2022) Hemoglobin 12.8 Hematocrit 39.0 White Blood Cell 8.31 Platelet 315 Iron 63 Vitamin B12 310 04/22/2022 Historical Provider MD [facility] * [facility] Labs 2 - External (02/12/2022) Cholesterol, Total 144 Triglyceride 239 HDL Cholesterol 28 LDL Cholesterol 69 Hemoglobin A1c 5.3 Sodium 140 Potassium 3.9 Chloride 105 Blood Urea Nitrogen 15 Creatinine 0.6 Aspartate Aminotransferase 29 Alanine Aminotransferase 53 Thyroid Stimulating Hormone 1.39 02/12/2022 Historical Provider MD FRANK [facility] documented in this encounter Visit Diagnoses Not on filedocumented in this encounter Care Teams Lumber Carrier Relationship Specialty Start Date End Date Keena Rosales APRN [address] [place] [address] PCP - General Family Medicine 11/04/21 documented as of this encounter
--- OUTSIDE RECORDS SUMMARY | 2024-07-13 14:56 | XMS_ITS | Encounter Summary ---
Author Organization [facility] [place] [address] Care Team Providers Care Chronic Care Nurse Name Role Phone Bobby Keena H YEYO Primary Care Provider [phone] Reason for Visit * Reason Onset Date Comments Appointment 09/21/2022 Encounter Details Date Type Department Care Team (Late st Contact Info) Description 09/21/2022 [place]phone [place] [phone] Deb Espino Appointment Social History Tobacco Use Types Packs/Day Years Used Date Smoking Tobacco: Never Assessed Sex and Gender Information Value Date Recorded Sex Assigned at Not on file Gender Identity Not on file Sexual Orientation Not on file documented as of this encounter Miscellaneous Notes * Telephone Encounter - Deb Espino - 09/21/2022 5:21 PM EDT [facility] and sent [facility] letter regarding scheduling from referral focarolynn to see a psychologist. documented in this encounter Plan of Treatment Upcoming Encounters Date Type Department Care Team (Late st Contact Info) Description 08/17/2024 11:00 AM EST [place] [phone] Lamar Alonzo MD [facility] DR [facility] [address] documented as of this encounter Goals Goal Patient Goal Type Associated Problems Recent Progress Patient-Stated? Author Follow your diet plan as advised by your wholesale agronomist Courtney Owens I, RD Note: Images from the original note were not included. Nutrtion Goals: 04/25/23 TF Nutrition Goals: 03/28/23 TF Review and continue to work on the Eating Behaviors for success post gastric bypass Nutrition Goals updated today: 10/22/22 TF 1. Try [place] dressing to reduce calories and increase in place [place] 2. Work towards reducing total calroeus gradually to aim for 9500-2058 kcals (aim to reduce each meal by [...] on filedocumented in this encounter Care Teams Chronic Care Nurse Relationship Specialty Start Date End Date Keena Rosales, YEYO [address] [place] [address] PCP - General Family Medicine 11/04/21 documented as of this encounter
--- OUTSIDE RECORDS SUMMARY | 2024-07-13 14:56 | XMS_ITS | Encounter Summary ---
Author Organization [facility]ly [facility] [place] [address] Care Team Providers Care Edi Programmer Name Role Phone Keena Rosales APRN Primary Care Provider [phone] Reason for Visit * Reason Onset Date Comments Appointment 02/08/2023 Encounter Details Date Type Department Care Team (Late st Contact Info) Description 02/08/2023 Telephone Weight Center at [facility] [place] [phone] Deb Espino Appointment Social History Tobacco Use [...] * Telephone Encounter - Deb Espino - 02/08/2023 9:51 AM EDT Next phone call another patient accepted 02/08 appointment- called [employer] cell phone number back to state todays appt is no longer available. * Telephone Encounter - Deb Espino - 02/08/2023 9:44 AM EDT Called and spoke with women about moving Yvette Gillis appt up from 03/01 via waitlist to opening today 02/08 virtually at 3pm. Women is reaching out to [facility] and if available will call back. documented in this encounter Plan of Treatment Upcoming Encounters Date Type Department Care Team (Late st Contact Info) Description 08/17/2024 11:00 AM EST Office [place] [phone] Lamar Alonzo MD [facility] [address] [place] [address] documented as of this encounter Goals Goal Patient Goal Type Associated Problems Recent Progress Patient-Stated? Author Follow your diet plan as advised by your interactive media director Diet Courtney Mccallum RD Note: Images from the original note were not included. Nutrtion Goals: 04/25/23 TF Nutrition Goals: 03/28/23 TF Review and continue to work on the Eating Behaviors for success post gastric bypass Nutrition Goals updated today: 10/22/22 TF 1. Try Bolthouse dressing to reduce calories and increase in place Ranch 2. Work towards reducing total calroeus gradually to aim for 9706-0146 kcals (aim to reduce each meal by [...] on filedocumented in this encounter Care Teams Edi Programmer Relationship Specialty Start Date End Date Keena Rosales APRN [address] [place] [address] PCP - General Family Medicine 11/04/21 documented as of this encounter
--- OUTSIDE RECORDS SUMMARY | 2024-07-13 14:56 | XMS_ITS | Encounter Summary ---
Author Organization [facility] [place] [address] Care Team Providers Care Water Purifier Name Role Phone Pipo Frazier Primary Care Provider [phone] Encounter Details Date Type Department Care Team (Late st Contact Info) Description 11/16/2019 Telephone [place] [address] Nataliya Lange RN Social History Tobacco Use Types Packs/Day Years Used Date Smoking Tobacco: Never Assessed Sex and Gender Information Value Date Recorded Sex Assigned at Not on file Gender Identity Not on file Sexual Orientation Not on file documented as of this encounter Miscellaneous Notes * Telephone Encounter - Nataliya Avery RN - 11/16/2019 1:16 PM EDT Patient is S/P Case Date: 11/14/2019 ?? Surgeon: Surgeon(s) and Role: * Onesimo Chaves MD - Primary * Sai Allen MD - Resident ?? Preoperative diagnosis: cholecystitis ?? Postoperative diagnosis: * No post-op diagnosis entered * ?? Procedure(s) (LRB): LAPAROSCOPIC CHOLECYSTECTOMY WITH CHOLANGIOGRAM (WRVU 11.47) (N/A) ? Anesthesia: General Phoned patient to check in following recent surgery. Left message for patient to call with any questions. documented in this encounter Plan of Treatment Upcoming Encounters Date Type Department Care Team (Late st Contact Info) Description 08/17/2024 11:00 AM EST Office [place] [address] Lamar Alonzo MD [facility] DR [facility] [address] documented as of this encounter Visit Diagnoses Not on filedocumented in this encounter Care Teams Water Purifier Relationship Specialty Start Date End Date Pipo Frazier PA [address] [place] [address] PCP - General General Internal Medicine 11/28/1501/12 documented as of this encounter
--- OUTSIDE RECORDS SUMMARY | 2024-07-13 14:56 | XMS_ITS | Encounter Summary ---
Author Organization [facility] [place] [address] Care Team Providers Care Extrusion Die Repair Manager Name Role Phone Keena Rosales APRN Primary Care Provider [phone] Reason for Visit * Consultation (Routine) - Closed Specialty Diagnoses / Procedures Referred By Contsaroj t Referred To Contact Hematology and Oncology Diagnoses Anemia, unspecified type Iron deficiency anemia, unspecified iron deficiency anemia type Keena Rosales APRN [address] [place] [address] [facility] [address] [place] [address] Referral ID Status Reason Start Date Expiration Date V isits Requested Visits Authorized [id number] Closed Consult, Test & Treat PCP Updated and/or Approved 08/26/2022 08/26/2023 12 12 Encounter Details Date Type Department Care Team (Late st Contact Info) Description 10/14/2022 3:00 PM EDT Office Visit Hematology/Oncology at [address] [phone] Deion Turner MD [facility] [address] [place] [address] Anemia, unspecified type Social History Tobacco Use Types [...] place to sleep or slept in a fci (including now)? No 10/14/2022 Sex and Gender Information Value Date Recorded Sex Assigned at Not on file Gender Identity Not on file Sexual Orientation Not on file documented as of this encounter Last Filed Vital Signs Vital Sign Reading Time Taken Comments Blood Pressure 150/76 10/14/2022 3:18 PM EDT Pulse 104 10/14/2022 3:18 PM EDT Temperature 36.3 ??C (97.3 ??F) 10/14/2022 3:18 PM ED T Respiratory Rate 22 10/14/2022 3:18 PM EDT Oxygen Saturation 99% 10/14/2022 3:18 PM EDT Inhaled Oxygen Concentration - - Weight 225 kg (496 lb) 10/14/2022 3:18 PM EDT Height 181 cm (5' 11.26) 10/14/2022 3:18 PM EDT Body Mass Index 68.67 10/14/2022 3:18 PM EDT documented in this encounter Progress Notes * Deion Turner MD - 10/14/2022 3:00 PM EDT Subjective Patient ID: René Wayne is a 37 y.o. male. HPI Patient is a 37-year-old male referred by Keena Rosales APRN to the hematology clinic in [place] for consultation regarding mild anemia. I have had a chance to review the available recordsand interview and examined the patient. Briefly the patient has had a very mild anemia with normal MCV, normal white count and normal platelet count. I do not have a lot of CBC with reports but atypical CBC provided for review from 08/23/2022 showed a white count of 7.5, hemoglobin of 13.2, MCV of 85, and a platelet count of 311. He has had iron studies which show a mildly low iron saturation but a ferritin of 187 suggesting hedoes not have iron deficiency. He has been placed on oral iron. He is hoping to get weight loss surgery in the near future. He has been evaluated by [facility] in the past but is currently transferring his care to the [facility]. I could not find additional nutritional studies including recent B12, folate. Past medical history Anxiety Hypertension SUDHA Morbid obesity Low back pain Fatty liver Vitamin D deficiency Dyspepsia Allergic rhinitis Current Outpatient Medications: ??? topiramate (Topamax) 25 mg tablet, Take 2 tablets by mouth daily., Disp: 60 tablet, Rfl: 0 ??? busPIRone (Buspar) 5 mg Tablet, Take 5 mg by mouth 2 times daily., Disp: , Rfl: ??? cholecalciferol (Vitamin D3) 1,000 unit Tablet, Take 5,000 Units by mouth., Disp: , Rfl: ??? FeroSuL 325 mg (65 mg iron) Tablet, TAKE 1 TABLET BY MOUTH ONCE DAILY ON TUESDAY, TUESDAY, ANDTUESDAY DIRECTED., Disp: , Rfl: ??? Victoza 3-Carlo 0.6 mg/0.1 mL (18 mg/3 mL) Pen Injector, INJECT 1.8 MG SUBCUTANEOUSLY ONCE A DAY., Disp: , Rfl: ??? metFORMIN (Glucophage) 500 mg Tablet, Take 2,000 mg by mouth Daily., Disp: , Rfl: ??? prazosin (Minipress) 1 mg Capsule, Take 2 mg by mouth nightly., Disp: , Rfl: ??? propranoloL (Inderal) 10 mg Tablet, Take 10 mg by mouth 2 times daily., Disp: , Rfl: ??? acetaminophen (Tylenol) 325 mg Tablet, Take 3 tablets by mouth every 6 hours as needed for Pain., Disp: 30 tablet, Rfl: 0 ??? ibuprofen (Advil;Motrin) 400 mg Tablet, Take 1.5 tablets by mouth every 6 hours as needed for Pain., Disp: 30 tablet, Rfl: 0 ??? LORazepam (Ativan) 0.5 mg Tablet, Take 0.5 mg by mouth daily as needed., Disp: , Rfl: ??? venlafaxine (EFFEXOR-XR) 150 mg Capsule, Sust. Release 24 hr, Take 225 mg by mouth daily., Disp: , Rfl: ??? Propranolol-Hydrochlorothiazid (INDERIDE) 40-25 mg Tablet, Take by mouth 2 times daily., Disp: , Rfl: ??? Pentips 32 gauge x 5/32 Needle, USE 1 NEEDLE SUBCUTANEOUSLY ONCE DAILY DIRECTED, Disp: , Rfl: No Known Allergies Social History Socioeconomic History ??? Marital status: Single Spouse name: Not on file ??? Number of children: Not on file ??? Years of education: Not on file ??? Highest education level: Not on file Occupational History ??? Not on file Tobacco Use ??? Smoking status: Former Types: Cigarettes ??? Smokeless tobacco: Never ??? Tobacco comments: Rare cigarette in high school Substance and Sexual Activity ??? Alcohol use: Not on file ??? Drug use: Not on file ??? Sexual activity: Not on file Other Topics Concern ??? Not on file Social History Narrative ??? Not on file Social Determinants of Health Financial Resource Strain: Low Risk ??? Difficulty of Paying Living Expenses: Not very hard Food Insecurity: No Food Insecurity ??? Worried About Running Out of Food in the Last Year: Never true ??? Ran Out of Food in the Last Year: Never true Transportation Needs: No Transportation Needs ??? Lack of Transportation (Medical): No ??? Lack of Transportation (Non-Medical): No Physical Activity: Not on file Housing Stability: Low Risk ??? Unable to Pay for Housing in the Last Year: No ??? Number of Places Lived in the Last Year: 1 ??? Unstable Housing in the Last Year: No Review of Systems Constitutional: Positive for fatigue. Negative for fever and unexpected weight change. HENT: Negative for nosebleeds. Respiratory: Negative for cough and shortness of breath. Cardiovascular: Negative for chest pain and palpitations. Gastrointestinal: Negative for abdominal pain and diarrhea. Musculoskeletal: Negative for back pain. Skin: Negative for rash. Neurological: Negative for speech difficulty. Hematological: Negative for adenopathy. Does not bruise/bleed easily. All other systems reviewed and are negative. Objective BP 150/76 (Patient Position: Sitting) Pulse (!) 104 Temp 36.3 ??C (97.3 ??F) (Temporal) Resp 22 Ht 181 cm (5' 11.26) Wt (!) 225 kg (496 lb) SpO2 99% BMI 68.67 kg/m?? Physical Exam Constitutional: Appearance: He is obese. He is not ill-appearing. HENT: Mouth/Throat: Mouth: Mucous membranes are moist. Eyes: General: No scleral icterus. Cardiovascular: Rate and Rhythm: Normal rate. Pulmonary: Effort: Pulmonary effort is normal. Musculoskeletal: General: No swelling. Skin: Findings: No rash. Neurological: Mental Status: He is oriented to person, place, and time. Assessment and Plan 37-year-old man with a very mild normochromic normocytic anemia and normal white count and normal platelet count. He does not have iron deficiency. I am going to check a few additional laboratories including B12 and folate. We will screen him for plasma cell disorders with an SPEP. I think it is unlikely that he has a chronic hemolytic anemia but we will check a reticulocyte count, LDH and haptoglobin. I did recommend that he stop his oral iron since he does not have evidence of iron deficiency basedon an intact ferritin. It is possible that he has some inflammation and with his relatively low iron saturation he could have some anemia of chronic disease but since it is so mild I do not think it represents anything significantly pathologic. Based on the relatively mild anemia and other intact blood counts I did not recommend a bone marrow aspirate and biopsy. I plan to update this note once the above laboratory studies are available and intervene if we findanything relatively simple. Otherwise I do not think he needs to do anything different. I do not think the mild anemia should be a barrier to him undergoing weight loss surgery. He should undergo a more aggressive work-up including bone marrow aspirate and biopsy if his hemoglobin gets less than 12. I think it is fine for him to be followed by his primary care team as long as that does not happen. Addendum Labs from 10/19/2022 White count 8.3, hemoglobin 13.9, platelets 314 Haptoglobin 185, reticulocyte count 2.4% B12 503, folate 9.0, TSH 2.5 SPEP no monoclonal Assessment This patient had a mild anemia on previous labs but is hemoglobin has returned to normal. There areno signs of nutritional issues. At this point I do not think any further hematologic work-up should be pursued. His CBC is normal. * Marta Mari RN - 10/14/2022 3:[address] [facility] Oncology Note SOCIAL ASSESSMENT: See EDH social assessment information entered. 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 [ ] yes [ x ] no Local Pharmacy: [facility] FUNCTIONAL SCREENING: Balance difficulty: [ x ]no [ ]yes At risk for fall: [x ] no [ ] yes If yes, actions implemented to prevent fall. Patient/family instructed to avoid independent ambulation. Use wheelchair and ask for assistance of staff while in the clinic. ADL [x ] no limits [ ] needs dressing assistance [ ] needs meal assistance Assistive device:[ x ]none [ ]cane [ ]walker [ ]wheelchair [ ]other: explain PAIN ASSESSMENT: [ 0 ] out of 10 Location: Description: [ ] Dull [ ] Sharp [ ] Burning [ ] Throbbing [ ] Radiating [ ] Continuous [ ] Intermittent Aggravating Factors: [ ] Movement [ ] Position [ ] Immobility [ ] Other Alleviating Factors: [ ] Medication [ ] Positioning [ ] Other Current Pain Management Plan: [ ] Satisfied [ ] Not satisfied LEARNING STYLE: Learning Needs Assessment up to date (yearly) [ 10/14/22 ] TEACHING: __ NCI ???Chemotherapy and You?? and folder given __ Specific chemotherapy literature provided and reviewed with patient VASCULAR ACCESS ASSESSMENT: getting chemo? [ ]yes [ x ]no Need port? [ ] yes [x ] no documented in this encounter Plan of Treatment Upcoming Encounters Date Type Department Care Team (Late st Contact Info) Description 08/17/2024 11:00 AM EST Office [place] [address] Lamar Alonzo MD [facility] [address] [facility] [place] [address] documented as of this encounter Goals Goal Patient Goal Type Associated Problems Recent Progress Patient-Stated? Author Follow your diet plan as advised by your abrasive wheel molder Courtney Owens RD Note: Images from the original note were not included. Nutrtion Goals: 04/25/23 TF Nutrition Goals: 03/28/23 TF Review and continue to work on the Eating Behaviors for success post gastric bypass Nutrition Goals updated today: 10/22/22 TF 1. Try Bolthouse dressing to reduce calories and increase in place Ranch 2. Work towards reducing total calroeus gradually to aim for 0038-2624 kcals (aim to reduce each meal by [...] Procedure Name Priority Date/Time Associated Diagnosis Comments IMMUNOGLOBULIN FREE LIGHT CHAINS, SERUM Routine 10/19/2022 IMMUNOGLOBULINS, QUANTITATIVE Routine 10/19/2022 IRON AND TIBC Routine 10/19/2022 CBC (WITH DIFF) Routine 10/19/2022 PROTEIN ELECTROPHORESIS, SERUM Routine 10/19/2022 PROTEIN ELECTROPHORESIS, SERUM Routine 10/19/2022 HAPTOGLOBIN Routine 10/19/2022 VITAMIN B12 Routine 10/19/2022 COMPREHENSIVE METABOLIC PANEL Routine 10/19/2022 documented in this encounter Results * (ABNORMAL) Free Light Chains, Serum (10/19/2022) [place] Free Light Chain 1.98(H) Lambda Free Light Chain 1.35 [place]/Lambda FLC Ratio 1.47 Blood 10/19/2022 Historical Provider CHEMISTRY ORDERAB LES * Immunoglobulins, Quantitative (10/19/2022) Immunoglobulin G 913 IgA 348 IgM 52 Blood 10/19/2022 Historical Provider CHEMISTRY ORDERAB LES * (ABNORMAL) Vitamin B12 (10/19/2022) Vitamin B12 503 Vitamin D Total 25 OH 15.2(L) Folate 9.0 Blood 10/19/2022 Historical Provider CHEMISTRY ORDERAB LES * (ABNORMAL) Iron and TIBC (10/19/2022) Iron 58(L) TIBC 311 Transferrin 19(L) % Blood 10/19/2022 Historical Provider CHEMISTRY ORDERAB LES * Protein Electrophoresis, serum (10/19/2022) Gamma Globulin 0.90 Blood 10/19/2022 Historical Provider CHEMISTRY ORDERAB LES * Protein Electrophoresis, serum (10/19/2022) Total Prot Electrophoresis 6.8 Albumin Electrophoresis 3.8 Alpha 1 Globulin 0.30 Alpha 2 Globulin 0.70 Beta Globulin 1.00 M1 Band Comment:NA Blood 10/19/2022 Historical Provider CHEMISTRY ORDERAB LES * Comprehensive metabolic panel (non-fasting) (10/19/2022) Blood Urea Nitrogen 14 Creatinine 0.8 Sodium 141 Potassium 4.8 Calcium 8.7 Protein, Total 7.0 Albumin 3.5 Bilirubin, Total 0.2 Alkaline Phosphatase 81 Aspartate Aminotransferase 17 Alanine Aminotransferase 47 Magnesium 2.1 mg/dL Lactate Dehydrogenase 168 Blood 10/19/2022 Historical Provider CHEMISTRY ORDERAB LES * Haptoglobin (10/19/2022) Haptoglobin 185 Reticulocyte % 2.4 Blood 10/19/2022 Historical Provider CHEMISTRY ORDERAB LES * CBC (with Diff) (10/19/2022) White Blood Cell 8.31 Red Blood Cell 4.95 Hemoglobin 13.9 Hematocrit 42.5 Platelet 314 Neutrophil Absolute (ANC) - Automated 5.55 Blood 10/19/2022 Historical Provider HEMATOLOGY ORDERA BLES documented in this encounter Visit Diagnoses Diagnosis Anemia, unspecified type documented in this encounter Care Teams Extrusion Die Repair Manager Relationship Specialty Start Date End Date Keena Rosales APRN [address] [place] [address] PCP - General Family Medicine 11/04/21 documented as of this encounter
--- OUTSIDE RECORDS SUMMARY | 2024-07-13 14:56 | XMS_ITS | Encounter Summary ---
Author Organization [facility] [place] [address] Care Team Providers Care Hand Shaker Name Role Phone Keena Rosales APRN Primary Care Provider [phone] Encounter Details Date Type Department Care Team (Late st Contact Info) Description 05/31/2022 4:00 PM EST Notes [place] [phone] Social History Tobacco Use Types Packs/Day Years Used Date Smoking Tobacco: Never Assessed Sex and Gender Information Value Date Recorded Sex Assigned at Not on file Gender Identity Not on file Sexual Orientation Not on file documented as of this encounter Progress Notes * Carla Santana - 05/31/2022 4:00 PM EST PATIENT ATTENDED THE INTRO TO BARIATRIC SURGERY FOR THE [facility] ON 05/31/2022 documented in this encounter Plan of Treatment Upcoming Encounters Date Type Department Care Team (Late st Contact Info) Description 08/17/2024 11:00 AM EST Office [place] [phone] Lamar Alonzo MD [facility] [address] [facility] [place], [place] [id number] documented as of this encounter Visit Diagnoses Not on filedocumented in this encounter Care Teams Hand Shaker Relationship Specialty Start Date End Date Keena Rosales APRN [address] [place] [address] PCP - General Family Medicine 11/04/21 documented as of this encounter
--- OUTSIDE RECORDS SUMMARY | 2024-07-13 14:56 | XMS_ITS | Encounter Summary ---
Author Organization [facility] Address [facility] [place] [address] Care Team Providers Care Conveyor Line Battery Charger Name Role Phone Yuniel Rosalesyn Maurice ORONA Primary Care Provider [phone] [phone] Encounter Details Date Type Department Care Team (Late st Contact Info) Description 02/16/2023 1:00 PM EDT Office [place] [id number] Lamar Alonzo MD [facility] [address] [facility] [place] [address] Class 3 severe obesity with serious comorbidity and body mass index (BMI) of 60.0 to 69.9 in adult, unspecified obesity type; Hypertriglyceridemia ; Hypertension, unspecified type; SUDHA on CPAP; Anxiety; Frequent headaches Social History Tobacco Use Types Packs/Day Years Used Date Smoking Tobacco: Former Cigarettes Smokeless Tobacco: Never Comments:Rare cigarette in [facility] Overall Financial Resource Strain (CARDIA) Answe [...] medical appointments or from getting medications? No 040 12/2022 In the past 12 months, has [...] place to sleep or slept in a chcf (including now)? No 10/14/2022 Sex and Gender Information Value Date Recorded Sex Assigned at Not on file Gender Identity Not on file Sexual Orientation Not on file documented as of this encounter Last Filed Vital Signs Vital Sign Reading Time Taken Comments Blood Pressure 142/72 02/16/2023 12:45 PM EDT Pulse 71 02/16/2023 12:45 PM EDT Temperature - - Respiratory Rate - - Oxygen Saturation 96% 02/16/2023 12: 45 PM EDT Inhaled Oxygen Concentration - - Weight 223.7 kg (493 lb 3.2 oz) 023 12:45 PM EDT Height 181 cm (5' 11.26) 02/16/2023 12 :45 PM EDT Body Mass Index 68.29 02/16/2023 12:45 PM EDT documented in this encounter Progress Notes * Lamar Alonzo MD - 02/16/2023 1:00 PM EDTSummary: 2nd visit with [facility] Patient Name: René Wayne Date of : 1985 PCP: Keena Rosales APRN CHIEF COMPLAINT: F/u for treatment of WHO Class 3 / EOSS Stage 2 Obesity, defined by BMI at presentation, with complications: HTN, SUDHA on CPAP, anxiety, FLD, hyper TG. . This is Visit #2 [facility] visit for this 37 y.o. patient. Weight gain due to: genetics, stress Initial weight 08/25/22: 484 lbs 02/16/2023, 493 lbs (+ 9 lbs) [facility] Team: Courtney Kennedy RD and Nilda Gillis, PhD HPI Things have gone off the rails a bit. [place] good things about veganism, gave it a try, lost some weight, stalled and weight crept back up. Gotten as high as 505. Switched back to keto, down to 493 lbs. Issue is I never feel full. PILLARS Stress - I suffer from anxiety/panic, stress is always at least a medium. In therapy. 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 Not bad. Very different. Nutrition/Recall: felt pretty decent, felt ian NOT full 3 scrambled eggs, keto yogurt, unsweetened almond milk Salad mix, cheddar cheese, grilled chicken, ranch S - cottage cheese D - 3 turkey burger, riced cauliflower, cottage cheese, horseradish Drinking water, seltzer, occasional diet soda AOM: Currently taking: Victoza 1.8 mg, Metformin [...] Self-monitoring: Food log Groups of interest: Discussion 02/17/23: On BSP, some recent weight gain although doing better with keto approach. Discussed sticking to this approach, as fat and protein will provide greatest satiety. Continue current AOMs. Cont f/u. Has pre palmer psych scheduled. 08/25/2022 2:00 PM [facility] - ADULT Pre- Bariatric Surgery Activate Adult Biobank Activate VITAL SIGNS: Vitals: 02/16/23 1245 BP: 142/72 BP Location (NBP): Right arm Patient Position: Sitting BP Cuff Sizes: Large Adult (32-43 cm) Pulse: 71 SpO2: 96% Weight: (!) 223.7 kg (493 lb 3.2 oz) Height: 181 cm (5' 11.26) Body mass index is 68.29 kg/m??. PHYSICAL EXAM: Gen: Alert and appropriate, [...] CO2 29 08/23/2022 BUN 14 10/19/2022 CREATININE 0.8 10/19/2022 GLUCOSE 115 11/14/2019 GLUCFASTING 105 08/23/2022 CALCIUM 8.7 10/19/2022 ESTGFR >60 08/23/2022 Lab Results Component Value Date ALT 47 [...] 105 08/23/2022 Lab Results Component Value Date [id number] 503 10/19/2022 25-OH Vit D Total (no units) Date Value Status 10/19/2022 15.2 (L) Final No results found for: URICACID ASSESSMENT AND PLAN René Wayne was seen in follow up today for ongoing METABOLICALLY UNHEALTHY OBESITY not yet at treatment goal [] with improvement [x] without change. Goals and treatment options were [...] 60.0 to 69.9 in adult,unspecified obesity type Hypertriglyceridemia Hypertension, unspecified type SUDHA on CPAP Anxiety Frequent headaches No orders of the defined types were placed in this encounter. Return in about 8 weeks (around 04/13/2023) for In person or Zoom, With me. 1 min chart review 30 min [id number] visit 5 min documentation time I spent time above reviewing labs, writing prescriptions, documenting visit, examining the patient,arranging other specialty care, counseling in diet and/or exercise and discussion of treatment options in the care of obesity. documented in this encounter Plan of Treatment Upcoming Encounters Date Type Department Care Team (Late st Contact Info) Description 08/17/2024 11:00 AM EST Office [place] [address] Lamar Alonzo MD [facility] DR [facility] [place] [address] documented as of this encounter Goals Goal Patient Goal Type Associated Problems Recent Progress Patient-Stated? Author Follow your diet plan as advised by your segmental paving supervisor Courtney Owens RD Note: Images from the original note were not included. Nutrtion Goals: 04/25/23 TF Nutrition Goals: 03/28/23 TF Review and continue to work on the Eating Behaviors for success post gastric bypass Nutrition Goals updated today: 10/22/22 TF 1. Try [place] dressing to reduce calories and increase in place Ranch 2. Work towards reducing total calroeus gradually to aim for 7156-4067 kcals (aim to reduce each meal by [...] 69.9 in adult, unspecified obesity type Hypertriglyceridemia Pure hyperglyceridemia Hypertension, unspecified type SUDHA on CPAP Obstructive sleep apnea (adult) (pediatric) Anxiety Anxiety state, unspecified Frequent headaches documented in this encounter Care Teams Conveyor Line Battery Charger Relationship Specialty Start Date End Date Keena Rosales APRN [address] [place] [address] PCP - General Family Medicine 11/04/21 documented as of this encounter
--- OUTSIDE RECORDS SUMMARY | 2024-07-13 14:56 | XMS_ITS | Encounter Summary ---
Author Organization [facility] Address [facility] [place] [address] Care Team Providers Care Transcribing Machine Mechanic Name Role Phone Keena Rosales APRN Primary Care Provider [phone] [phone] Encounter Details Date Type Department Care Team (Late st Contact Info) Description 02/11/2022 [place] [address] Social History Tobacco Use Types Packs/Day Years [...] AM EST Office [place] [phone] Lamar Alonzo MD [facility] DR GREG[facility] [address] documented as of this encounter Procedures Procedure Name Priority Date/Time Associated Diagnosis Comments ECG SCAN Routine 02/11/2022 documented in this encounter Results * Scan Doc: ECG (02/11/2022) Historical Provider MD VANEGAS MGR SCAN EX T ORDR/RSLT documented in this encounter Visit Diagnoses Not on filedocumented in this encounter Care Teams Transcribing Machine Mechanic Relationship Specialty Start Date End Date Keena Rosales APRN [address] [place] [address] PCP - General Family Medicine 11/04/21 documented as of this encounter
--- OUTSIDE RECORDS SUMMARY | 2024-07-13 14:56 | XMS_ITS | Encounter Summary ---
Author Organization [facility] [place] [address] Care Team Providers Care Manufacturing Electrician Name Role Phone Keena Rosales APRN Primary Care Provider [phone] [phone] Encounter Details Date Type Department Care Team (Latest Contact Info) Description 09/24/2022 2:00 PM EDT TH Visit (TeleHealth) [place] [address] [facility] [place] [address] Class 3 severe obesity with serious comorbidity [...] * Patient Instructions* Courtney Kennedy RD - 09/24/2022 2:00 PM EDT Images from the original note were not included. documented in this encounter Progress Notes * Courtney Kennedy RD - 09/24/2022 2:00 PM EDT Images from the original note were not included. Nutrition Intervention for Weight Management Initial RD visit with ZENA Rocha 1985 Patient confirms visit conducted while patient was in the following state: [place] Weight Today: Wt Readings from Last 3 Encounters: 08/25/22 (!) 219.6 kg (484 lb 3.2 oz) 11/14/19 (!) 217.7 kg (480 lb) BMI Readings from Last 3 Encounters: 08/25/22 68.49 kg/m?? Interview: Pt is pursuing bariatric surgery. Weight Loss History: See previous notes from this contract writer and [facility] provider for full account Typical Dietary Intake: B: scrambled tofu and peppers, non dairy yogurt and banana; OR PB banana sandwich L: vickie bread and hummus D: broccoli, cauliflower, black beans and potatoes S: nothing Typical Beverages: [x] water - (total: ~ 64 ounces/day [x] plain [] crystal light or other sugar-free additive [x] [place]; 1-2 cans/day - pt is working on decreasing [] Diet soda [x] Diet other drink; SF V8 Splash juice [] Current food Tracking [x] discussed potential benefit starting food tracking - see goals Patient Goals from Team: Goals ??? Follow your diet plan as advised by your ammunition storekeeper Bariatric eating behaviors introduced or reviewed: [x] Stop eating at comfortable full point (eating slowly to know, chewing thoroughly) [] Any binging identified? (6 months no binging prior to surgery) [x] Regular meal pattern, avoid grazing, reasonable snack frequency [x] Plan protein at all meals and snacks, eat protein first [x] Total water intake [x] eating and drinking by 30 minutes on either side [x] Sip rather than gulp [x] Reduce coffee intake down to ~1 cup (caffeine) prior to surgery [x] Reduce alcohol, ideally avoid Activity: [x] reviewed current goals; every other day 15-20 minutes on the treadmill on average [] updated goals Barriers to Change: portion control concern Nutrition Goals updated today: 1. Practice eating and drinking by 30 minutes on either side 2. Track all food for the next 4 weeks in to My Fitness Pal - aim for 2,000 calories/day at most Monitor/Evaluate: [] Needs additional fuv scheduled with this contract writer: No follow-ups on file. (OR) [] Currently scheduled for: [] 1st consecutive monthly nutrition visit [] 2nd consecutive monthly nutrition visit [x] 3rd consecutive monthly nutrition visit (OR) [] Patient has met requirement of 3 consecutive monthly nutrition visits but agrees that ongoing support would be helpful and feasible. Above determined to the best ability of this contract writer. Patient will contact bariatric surgery team for any official determination about about scheduling and insurance requirements ( ) Thank you Courtney Kennedy MS, RD LD 30 minutes were spent in visit today, including contact with patient, chart review, and documentation documented in this encounter Plan of Treatment Upcoming Encounters Date Type Department Care Team (Late st Contact Info) Description 08/17/2024 11:00 AM EST Office [place] [address] Lamar Alonzo MD [facility] [address] [facility] [address] documented as of this encounter Goals Goal Patient Goal Type Associated Problems Recent Progress Patient-Stated? Author Follow your diet plan as advised by your ammunition storekeeper Diet No Courtney Kennedy RD Note: Images [...] reducing total calroeus gradually to aim for 6702-5114 kcals (aim to reduce each meal by [...] type documented in this encounter Care Teams Manufacturing Electrician Relationship Specialty Start Date End Date Keena Rosales APRN [address] [place] [address] PCP - General Family Medicine 11/04/21 documented as of this encounter
--- OUTSIDE RECORDS SUMMARY | 2024-07-13 14:56 | XMS_ITS | Encounter Summary ---
Author Organization [facility] [place] [address] Care Team Providers Care Fixture Fabricator Repairer Name Role Phone Unknown Primary Care Provider Unavailabl e Encounter Details Date Type Department Care Team (Latest Contact Info) Description 08/25/2021 Transcribe Orders [place] [phone] Keena Rosales APRN [address] [place] [address] Steatosis of liver; Hypertension, unspecified type; Pre-procedural laboratory examination Social History Tobacco Use Types [...] AM EST Office [place] [phone] [facility] [address] G[facility] [place] [address] documented as of this encounter Results * Lab Use Only, Fax Request (08/23/2022) Neutrophil Absolute (ANC) - Automated 5.12 [facility] Blood 08/23/2022 Keena H Bobby TOOL CRIB SUPERVISOR CHEMISTRY ORDERAB LES [facility] [place] [address] documented in this encounter Visit Diagnoses Diagnosis Steatosis of liver Other chronic nonalcoholic liver disease Hypertension, unspecified type Pre-procedural laboratory examination documented in this encounter Care Teams Fixture Fabricator Repairer Relationship Specialty Start Date End Date Unknown None PCP - General 01/13/21 11/03/21 documented as of this encounter
--- OUTSIDE RECORDS SUMMARY | 2024-07-13 14:56 | XMS_ITS | Encounter Summary ---
Author Organization [facility] [place] [address] Care Team Providers Care Van Driver Helper Name Role Phone BobbyKeena caro YEYO Primary Care Provider [phone] [phone] Reason for Visit * Reason Comments Medication Refill Encounter Details Date Type Department Care Team (Late st Contact Info) Description 10/11/2022 Refill [place] [address] Lamar Alonzo MD [facility] [place] [address] Frequent headaches Social History Tobacco Use Types [...] AM EST Office [place] [address] Lamar Alonzo MD [facility] [place] [address] documented as of this encounter Goals Goal Patient Goal Type Associated Problems Recent Progress Patient-Stated? Author Follow your diet plan as advised by your payroll analyst Diet No Courtney Kennedy RD Note: Images [...] reducing total calroeus gradually to aim for 6385-1719 kcals (aim to reduce each meal by [...] as of this encounter Visit Diagnoses Diagnosis Frequent headaches documented in this encounter Care Teams Van Driver Helper Relationship Specialty Start Date End Date Keena Rosales APRN [address] [place] [address] PCP - General Family Medicine 11/04/21 documented as of this encounter
--- OUTSIDE RECORDS SUMMARY | 2024-07-13 14:56 | XMS_ITS | Encounter Summary ---
[place] [address] Care Team Providers Care Acute Care Nursing Assistant Name Role Phone Keena Rosales APRN Primary Care Provider [phone] [phone] Reason for Referral * Consultation (Routine) - Closed Specialty Diagnoses / Procedures Referred By Alma t Referred To Contact General Surgery Diagnoses Morbid obesity morbid obesity Procedures interested in bariatric surgery Keena Rosales APRN [address] [place] [address] [facility] Gen Surgery [address] [place] [phone] Referral ID Status Reason Start Date Expiration Date V isits Requested Visits Authorized [id number] Closed Consult, Test & Treat PCP Updated and/or Approved 11/04/2021 11/04/2022 12 12 Encounter Details Date Type Department Care Team (Late st Contact Info) Description 11/04/2021 Transcribe Orders eDH Incoming Referrals [phone] Keena Rosales APRN [address] [place] [address] Morbid obesity Social History Tobacco Use Types Packs/Day Years [...] AM EST Office [place] [address] Lamar Alonzo MD [facility] DR [facility]REG[facility] [place] [address] Scheduled Referrals Name Type Priority Associated Diagnoses Orde r Schedule Referral to Bariatric Surgery Program Outpatient Referral Routine Morbid obesity Ordered: 11/04/2021 documented as of this encounter Visit Diagnoses Diagnosis Morbid obesity documented in this encounter Care Teams Acute Care Nursing Assistant Relationship Specialty Start Date End Date Keena Rosales APRN [address] [place] [address] PCP - General Family Medicine 11/04/21 documented as of this encounter
--- OUTSIDE RECORDS SUMMARY | 2024-07-13 14:56 | XMS_ITS | Encounter Summary ---
[place] [address] Care Team Providers Care Semiconductor Processor Name Role Phone Keena Rosales APRN Primary Care Provider [phone] [phone] Reason for Referral * Consultation (Routine) - Closed Specialty Diagnoses / Procedures Referred By Alma t Referred To Contact Hematology and Oncology Diagnoses Anemia, unspecified type Iron deficiency anemia, unspecified iron deficiency anemia type Keena Rosales APRN [address] [place] [address] [facility] Hem [facility]c [address] [place] [address] Referral ID Status Reason Start Date Expiration Date V isits Requested Visits Authorized [id number] Closed Consult, Test & Treat PCP Updated and/or Approved 08/11/2022 08/11/2023 12 12 Encounter Details Date Type Department Care Team (Latest Contact Info) Description 08/11/2022 Transcribe Orders eDH Incoming Referrals [phone] Keena Rosales APRN [address] [place] [address] Anemia, unspecified type; Iron deficiency [...] AM EST Office [place] [address] Lamar Alonzo MD [facility] DR GREGORY [place] [address] Scheduled Referrals Name Type Priority Associated Diagnoses Orde r Schedule Referral to Hematology and Oncology Outpatient Referral Routine Anemia, unspecified type Iron deficiency anemia, unspecified iron deficiency anemia type Ordered: 08/11/2022 documented as of this encounter Visit Diagnoses Diagnosis Anemia, unspecified type Iron deficiency anemia, unspecified iron deficiency anemia type documented in this encounter Care Teams Semiconductor Processor Relationship Specialty Start Date End Date Keena Rosales APRN [address] [place] [address] PCP - General Family Medicine 11/04/21 documented as of this encounter
--- OUTSIDE RECORDS SUMMARY | 2024-07-13 14:56 | XMS_ITS | Encounter Summary ---
Author Organization [facility] [place] [address] Care Team Providers Care Recovery Rn Name Role Phone Bobby Keena H YEYO Primary Care Provider +1 [phone] Encounter Details Date Type Department Care Team (Latest Contact Info) Description 09/03/2022 2:30 PM EST TH Visit (TeleHealth) [place] [address] [facility] [place] [address] Class 3 severe obesity with serious comorbidity [...] * Patient Instructions* Courtney Kennedy RD - 09/03/2022 2:30 PM EST Images from the original note were not included. documented in this encounter Progress Notes * Courtney Kennedy RD - 09/03/2022 2:30 PM EST Nutrition Intervention for Weight Management Follow-up RD visit with ZENA Rocha 1985 Patient confirms visit conducted while patient was in the following state: [place] Weight Today: Wt Readings from Last 3 Encounters: 08/25/22 (!) 219.6 kg (484 lb 3.2 oz) 11/14/19 (!) 217.7 kg (480 lb) BMI Readings from Last 3 Encounters: 08/25/22 68.49 kg/m?? Pertinent Meds: AOM reviewed Interview: Pt is pursuing Bariatric Surgery. Has gone to the [facility] program for bariatric surgery a few years ago; continued to gain weight then lost 50# with going Vegan with subsequent regain; now following low carb/keto diet Typical Dietary Intake: B: scrambled eggs, toast and SF blueberry Oikos Yogurt L: salad with nuts and vinagrette D: 2 turkey burgers no buns, broccoli with a little cheese and cottage cheese S: does not eat after dinner Typical Beverages: [x] water - (total: minimal [] plain [] crystal light or other sugar-free additive [x] [place] (natural or artificial flavoring or plain only) 12 cans/day Appetite/Hunger: [x] feels managed with foods/meals outlined above [] discussed meal/snack schedule adjustment today- see goals [] patient identifies eating for reasons other than hunger- see interview Food Tracking: [x] Current food Tracking [] Discussed potential benefit starting food tracking - see goals [] Food tracking not appropriate for patient at this time [] Did not discuss today Other topics discussed: [] Eating an appropriate amount of food for your body [] Scheduled times / frequency of eating [] Reduce highly processed foods, refined carbohydrates, in favor of whole foods [] Reduce sweet taste in your diet (whether by sugar or non-nutritive sweeteners) [] Increase fruits and non-starchy veggies [] Increase fiber through f&v, whole grains, legumes (goal of 25 g/day women ; 35 g/day men) [] Replace processed meat with other meat, fish, or, ideally, plant-based proteins (Good, Better,Best handout provided? [] ) [] Consider adding or increasing fermented foods Activity: [x] reviewed current goals [] updated goals [] Did not discuss today Nutrition Goals updated today: Practice 5 Eating Behaviors reviewed today; handout attached in your after visit summary Monitor/Evaluate: Will f/u in 4 weeks as scheduled Aim for 5-10% weight loss from ABW x 3-6 months from initial visit Thank you Courtney Kennedy MS, RD LD 30 minutes were spent in visit today, including contact with patient, chart review, and documentation documented in this encounter Plan of Treatment Upcoming Encounters Date Type Department Care Team (Late st Contact Info) Description 08/17/2024 11:00 AM EST Office [place] [address] Lamar Alonzo MD [facility] DR [facility] [address] documented as of this encounter Goals Goal Patient Goal Type Associated Problems Recent Progress Patient-Stated? Author Follow your diet plan as advised by your scoop operator Diet No Courtney Kennedy RD Note: Images [...] reducing total calroeus gradually to aim for 0126-7370 kcals (aim to reduce each meal by [...] type documented in this encounter Care Teams Recovery Rn Relationship Specialty Start Date End Date Keena Rosales APRN [address] [place] [address] PCP - General Family Medicine 11/04/21 documented as of this encounter
--- OUTSIDE RECORDS SUMMARY | 2024-07-13 14:56 | XMS_ITS | Encounter Summary ---
Author Organization [facility] [place] [address] Care Team Providers Care Associate Professor Of Pathology Name Role Phone Keena Rosales YEYO Primary Care Provider [phone] Encounter Details Date Type Department Care Team (Late st Contact Info) Description 02/11/2022 11:15 PM EDT Ancillary Procedure Radiology Library at [facility] [place] [address] Suraj Lomax MD [facility] [place] [address] Social History Tobacco Use Types Packs/Day Years [...] AM EST Office [place] [address] Lamar Alonzo MD [facility] DR [facility] [address] documented as of this encounter Procedures Procedure Name Priority Date/Time Associated Diagnosis Comments FILM LIBRARY STORAGE ONLY CT HEAD Routine 02/11/2022 11:12 PM EDT documented in this encounter Results * Film Library- Storage Only CT Head (02/11/2022 11:12 PM EDT) Narrative CIRO SHAVER - 02/11/2022 11:12 PM EDT This exam is auto-finalizing. It's purpose is for storage only. Suraj Lomax MD IMG FILM LIBRARY ORD ERABLES SIV[place]UMAR [place], [place] documented in this encounter Visit Diagnoses Not on filedocumented in this encounter Care Teams Associate Professor Of Pathology Relationship Specialty Start Date End Date Keena Rosales APRN [address] [place] [address] PCP - General Family Medicine 11/04/21 documented as of this encounter
--- OUTSIDE RECORDS SUMMARY | 2024-07-13 14:56 | XMS_ITS | Encounter Summary ---
Author Organization [facility] Address [facility] [place] [address] Care Team Providers Care Nursing Staffing Coordinator Name Role Phone Keena Rosales APRN Primary Care Provider [phone] Reason for Visit * Consultation (Urgent) - Closed Specialty Diagnoses / Procedures Referred By Contsaroj t Referred To Contact Weight and Wellness Diagnoses Class 3 severe obesity with serious comorbidity and body mass index (BMI) of 60.0 to 69.9 in adult, unspecified obesity type Lamar Alonzo MD [facility] [address] [facility]REG[facility] [place] [address] [facility] [place] [address] Referral ID Status Reason Start Date Expiration Date V isits Requested Visits Authorized [id number] Closed Consult, Test & Treat 08/25/2022 08/25/2023 1 1 Encounter Details Date Type Department Care Team (Latest Contact Info) Description 11/18/2022 2:30 PM EDT TH Visit (TeleHealth) [place] [address] Nilda Gillis, PhD [facility] DR [place]REG[place] [address] RUPERT (generalized anxiety disorder) Social History Tobacco Use Types Packs/Day Years Used Date Smoking Tobacco: Former Cigarettes Smokeless Tobacco: Never Comments:Rare cigarette in [employer] school Overall Financial Resource Strain (CARDIA) [...] Progress Notes * Nilda Gillis, PhD - 11/18/2022 2:30 PM EDT [facility] BARI[facility]RIC SURGERY PSYCHOLOGICAL EVALUATION N [facility] [address] Dept: [phone] Loc: [phone] 11/18/2022 2:37 PM René Wayne is a 37 y.o. male who was referred for evaluation and preparation for potential bariatric surgery. René was seen for 60 minutes. Patient was alone, and was seen Telehealth. René Wayne gave permission for and was seen for today's appointment with a Telehealth visit.During this visit they were located at home in [place]. René Wayne is aware that for any urgent matter they can call [phone].. RECOMMENDATION BASED ON PSYCHOLOGICAL EVALUATION YELLOW - Based on the information gathered during this assessment, René Wayne would benefit from additional health behavior change before he is ready to proceed with surgery. Specifically, René would benefit from the following to assist with preparing for bariatric surgery: ?? Continue engaging in health promoting behaviors ?? Pay attention to your portion sizes. Even though you are picking low calorie foods, it doesn't mean you can increase your portions. ?? Remember - your body may be sending unreliable hunger signals. Commit to sticking to your portions and when finished engage in a different activity. ?? Stop skipping meals - pack a lunch or use a protein shake when busy at work The follow up plan is as follows: 6 wks SUMMARY The decision noted above is based on the followin. René has made significant weight loss attempts in the past, but without lasting success. 2. René experienced some mental health problems in the past year. 3. René experienced some mental health problems earlier in life. 4. René is not engaging in problematic eating behaviors. 5. René is knowledgeable about the surgery. 6. René's motivation for surgery is: good 7. René's social support is: good 8. René is aware of expected surgery weight loss with surgery. 9. René is aware of the habit changes that will need to occur and is actively engaged in changing those now. 10. René does not have a history of adherence/attendance issues. DIAGNOSIS (based on information gathered in this evaluation) Generalized Anxiety Disorder, The above assessment and plan was based on the following information obtained during the appointment: SOCIAL HISTORY Household composition: patient, significant other, brother and nephew (on weekends) Relationship status: in a relationship with Cherelle for 9 years Quality of relationship: supportive Progeny: Children: 0 Grandchildren: 0 Quality of relationship with children: n/a. 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 It was helpful Prior suicide attempts or self-harm: No Prior substance abuse treatment:No Current treatment (therapy, medication): buspar, effexor, and ativan (uses 1 every 2 wks) prescribed by PCP CURRENT PSYCHOSOCIAL CONCERNS Insomnia 11/18/2022 1:49 PM Insomnia Severity Index Response Current - Difficulty Falling Asleep Moderate Current - Difficulty Staying Asleep Moderate Current - Waking Too Early None Satisfaction - Sleep Pattern 3 Interference with daily function Much How Noticeable is Impairment Much Worry/Distress re: Sleep Problem Somewhat Insomnia Severity Index Score 15 (Moderately severe insomnia) - has sleep apnea - can take him several hours to fall asleep - mind racing interferes with sleep. - on occasion takes melatonin but notes that he is groggy in the morning. Pain 11/18/2022 1:49 PM Pain Scale + PCS Responses Chronic pain scale 4 Pain kept you from doing usual activities None Pain interfered with daily activities 2 Usual Pain Intensity 4 4 Disability Score 2 PCS - Total Score 0 (within normal range) Chronic Pain Grade ??? Grade 0 = No pain ??? Grade 1, low intensity, low interference = Usual Pain Intensity score of less than 5 AND 2-itemdisability score less than 9 ??? Grade 2, moderate intensity = Usual Pain Intensity score of 5 or greater AND 2-item disability score less than 9 ??? Grade 3, moderate interference = 2-item disability score of 9-12 ??? Grade 4, severe interference = 2-item disability score of 13-20 Anxiety 11/18/2022 1:47 PM RUPERT-7 Patient Reported Responses Nervous, anxious (Patient) Several days Unable to stop worrying (Patient) Several days Worrying about different things (Patient) More than half the days Trouble relaxing (Patient) More than half the days Restless (Patient) More than half the days Easily annoyed, irritable (Patient) Nearly every day Afraid something awful will happen (Patient) Nearly every day Difficulty (Patient) Somewhat difficult Very difficult RUPERT-7 Score (Patient) 14 (Moderate Anxiety) - has struggled with anxiety for many years - worries about heart disease/, bills, surgery, etc... - can continue to work but notes that it is harder on high anxiety days Depression 11/18/2022 1:47 PM PHQ-9: Responses Post 11/08/22 Conversion PHQ-9 Score 8 (Mild Depression) Little interest or pleasure Several Days Down, depressed, hopeless Several Days PHQ-2 Subscore 2 Trouble sleeping Several days Tired or no energy Several Days Poor appetite or overeating Several days Feeling like a failure Several Days Trouble concentrating Several Days Moving or speaking slowly Several Days Would be better off Not at all How difficult are the problems Very difficult - feeling discouraged about journey to surgery - weight is fluctuating and is trending up. Did [facility] program for 2 years and got discouraged that he will move forward Substance use 11/18/2022 1:51 PM Audit & Substance Use Responses 5 or more drinks a day Yes Drinking frequency Monthly or less Drinks per day 1 to 2 drinks 5+ drinks on one occasion Less than monthly Unable to stop, past year Never Failed to meet expectations, past year Never Drink in morning after heavy drinking, Never Guilt or remorse, past year Less than monthly Unable to remember, past year Never Injury due to drinking No Concern from close people No Used drug or prescription medication for non medical reason No AUDIT Score 3 (Low Risk) - notes that he has had 5+ beers in a sitting once this year for a friend's birthday (see ETOH assessment below) Other anxiety symptoms: Panic attacks: Yes, last epsiode was 4 wks ago during brother's wedding. 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 No doubters Concerns about possible sabotaging or relationship changes: No Identified post-surgery caregiver: significant other HEALTH BEHAVIORS ETOH: 1 drink/mo or less; Drugs: none Nicotine: non-smoker Caffeine: 1 12 oz diet soda every other day. Will also have iced green tea from [employer] PROBLEM EATING BEHAVIORS History of binging (i.e., large amounts of food over a 2-hour period, feeling loss of control and overly full): no - reviewed TFEQ responses and René noted that he never feels in control of his eating. It is not an episodic experience and notes that he does not experience times when he feels more in control of his eating. History of bulimic vomiting or other compensatory strategies (i.e., laxatives, diuretics, restricting): no If h/o bulimic vomiting or other compensatory strategies, last episode: N/a History of nighttime eating (i.e., skipping daytime meals and eating large amounts at dinner or waking at night to eat): yes If h/o nighttime eating, last episode: Occurs 2 times/wk - notes that packing lunch would help. History of grazing (i.e., continuously eating small snacks): no If h/o grazing, last episode: N/a History of mindless/stress eating (i.e., eating for emotional reasons rather than hunger): yes If h/o stress eating, last episode: Now occurs once every 2 wks in a peak of anxiety History of over eating (i.e., eating to the point of being uncomfortably full): no If h/o over eating, last episode: Doesn't feels stuffed despite the large portion size. SCORES ON TFEQ 11/18/2022 1:52 PM TFEQ-18 Responses Take small helpings to control my weight Mostly true Start to eat when I feel anxious Mostly true When I start eating, I cant stop Definitely true When sad I often eat too much Mostly true Don't eat some foods because they make me fat Definitely true Being with someone who is eating often makes me want to also eat Mostly false When I feel tense or wound up, I often feel I need to eat Mostly true Often get so hungry that my stomach feels like a bottomless pi Definitely true I'm always so hungry that it's hard for me to stop eating before I finish the food on my plate Definitely true When I feel lonely, I console myself by eating Mostly true Consciously hold back at meals to keep from gaining weigh Mostly false When I smell appetizing food or see a delicious dish, I find it very difficult to keep from eating even if I've just finished a meal Definitely true I'm always hungry enough to eat at any time Definitely true If I feel nervous, I try to calm down by eating Mostly true When I see something that looks very delicious, I often get so hungry that I have to eat right awayDefinitely true I eat when depressed Mostly true Go on eating binges though not hungry At least once a week How often do you feel hungry Almost always TFEQ - Uncontrolled Eating (UE) 92.59 TFEQ-Cognitive Restraint (CR) 66.67 TFEQ-Emotional Eating 66.67 PAST /PRESENT EFFORTS AT BEHAVIOR CHANGE Initial Weight: 484 lbs Current Weight as of 11/18/2022: 496 lbs Weight changes: increased 12 lbs - I never feel full - I'm always hungry Progress towards weight loss goal of 453 lbs: poor René has used the following strategies to lose weight in the past: vegan, fad diets, low carb,portion control Had difficulties keeping weight off due to: has been maintaining 25 lbs weight loss from his highest weight René is currently using these weight reduction strategies and habits to lose weight: AOM (topomax, metformin and victoza), low carb, exercise. BARIATRIC SURGERY Type of surgery René prefers: bypass Length of time considering surgery: many year(s) René is 100% convinced to have this surgery (100%=?? sign me up tomorrow?? ). Mixed feelings: No Knowledge of the procedure: watched on-line videos from Bariatric Surgery program, did the [facility] program, spoke to people who had the surgery - step mom, looked on line MOTIVATION FOR SURGERY Important to have surgery right now: be more active, improve health, be more comfortable REALISTIC POSTSURGICAL GOALS/EXPECTATIONS Excess Weight: 316.7 70% Excess Weight Loss: 221# or 274 TBW René???s weight loss goal after surgery: under 300, around 250 would be nice Goal consistent with average expected weight loss of approximately 50% of weight with gastric bypass (or 40% of weight with sleeve gastrectomy): yes POST SURGERY EATING HABIT CHANGES AND READINESS Awareness of the following eating habit changes and current extent of practice (50%=half meals/week; 100%= every meal/week) is: ??? Eating slowly, taking 20-30 min to complete a meal: Aware of the need and practicing about 100% of the time and has been practicing at this rate for about 1 month(s). ??? eating and drinking by 30 minutes: Aware of the need and practicing about 70% of the time and has been practicing at this rate for about 1 month(s). ??? Eating smaller quantities: Aware of the need and practicing about 0% of the time due to excess hunger. ??? Protein at each meal (should be eating it first): Aware of the need and practicing about 100% of the time and has been practicing at this rate for about 1 year(s). ??? Sipping 48-64oz of water slowly in a day: Aware of the need and practicing about 0% of the time for sipping. Is drinking plenty of water. ??? Following a consistent meal pattern: Aware of the need and practicing about 100% of the time and has been practicing at this rate for about 1 month(s). ??? Regular exercise: Aware of the need of regular exercise and gym 4 times/wk - treadmill or bike (20-25 min). Current implementation of habit changes: good ADHERENCE AND ATTENDANCE Number of No-show appointments in the past 6 months based on EMR (if possible): 0 Number of Cancelled appointments in the past 6 months based on EMR (if possible): 2 Reason for cancellations/no shows (if necessary to address): n/a Sleep Apnea? yes If yes, Night per week using CPAP: nightly Medication adherence - how many days in the past 7 did you miss any of your medications?: none Potential barriers to treatment compliance (10-14 day f/u with PCP, 1 mo f/u with team; 4 mo f/u; yearly f/u): none. Habit changes: Current stressors or anticipated stressful events that might interfere with René focusing on necessary habit changes before or after surgery include: none. Severity of stressor(s: n/a MENTAL STATUS Appearance: within normal limits Behavior: within normal limits Speech: within normal limits Affect: mood congruent Thought content/ process: within normal limits and goal directed Cognitive function: While not formally tested, function appears to be WNL The assessment and plan for René Wayne are detailed at the beginning of this report. documented in this encounter Plan of Treatment Upcoming Encounters Date Type Department Care Team (Late st Contact Info) Description 08/17/2024 11:00 AM EST Office [place] [address] Lamar Alonzo MD [facility] [address] [place] [address] Scheduled Referrals Name Type Priority Associated Diagnoses Orde r Schedule Amb Referral to [facility] Psych Evaluation Outpatient Referral Routine Class 3 severe obesity with serious comorbidity and body mass index (BMI) of 60.0 to 69.9 in adult, unspecified obesity type Ordered: 08/25/2022 documented as of this encounter Goals Goal Patient Goal Type Associated Problems Recent Progress Patient-Stated? Author Follow your diet plan as advised by your qualitative executive researcher Courtney Owens I, RD Note: Images from the original note were not included. Nutrtion Goals: 04/25/23 TF Nutrition Goals: 03/28/23 TF Review and continue to work on the Eating Behaviors for success post gastric bypass Nutrition Goals updated today: 10/22/22 TF 1. Try Bolthouse dressing to reduce calories and increase in place Ranch 2. Work towards reducing total calroeus gradually to aim for 5064-6081 kcals (aim to reduce each meal by [...] disorder documented in this encounter Care Teams Nursing Staffing Coordinator Relationship Specialty Start Date End Date Keena Rosales APRN [address] [place] [address] PCP - General Family Medicine 11/04/21 documented as of this encounter
--- OUTSIDE RECORDS SUMMARY | 2024-07-13 14:56 | XMS_ITS | Encounter Summary ---
Author Organization [facility] Address [facility] [place] [address] Care Team Providers Care Oyster Preparer Name Role Phone Keena Rosales APRN Primary Care Provider [phone] Encounter Details Date Type Department Care Team (Latest Contact Info) Description 02/14/2023 1:00 PM EDT TH Visit (TeleHealth) [place] [address] Courtney Kennedy I, RD [facility] [place] [address] Class 3 severe obesity with serious comorbidity [...] * Patient Instructions* Courtney Kennedy RD - 02/14/2023 1:00 PM EDT Goals Addressed This Visit's Progress Follow your diet plan as advised by your coordinator of placement Nutrition Goals updated today: 10/22/22 TF 1. Try Bolthouse dressing to reduce calories and increase in place Ranch 2. Work towards reducing total calroeus gradually to aim for 3157-1270 kcals (aim to reduce each meal by [...] Progress Notes * Courtney Kennedy RD - 02/14/2023 1:00 PM EDT Images from the original note were not included. Nutrition Intervention for Weight Management Initial RD visit with ZENA Rocha 1985 Weight Today: Wt Readings from Last 3 Encounters: 10/22/22 (!) 221.4 kg (488 lb) 10/14/22 (!) 225 kg (496 lb) 08/25/22 (!) 219.6 kg (484 lb 3.2 oz) BMI Readings from Last 3 Encounters: 10/22/22 67.57 kg/m?? 10/14/22 68.67 kg/m?? 08/25/22 68.49 kg/m?? Pertinent Meds: Victoza and Metformin Interview: Pt is pursuing bariatric surgery. 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 Typical Dietary Intake: B: eggs, almond milk and an orange L: salad with Ranch dressing and chicken and cottage cheese D: turkey burger with cheese, broccoli and cottage cheese S: Typical Beverages: [] coffee / tea [x] water - (total: ~ 8 16 ounce bottles [x] plain [] sugar-free additive [x] [place] water [] regular soda [] Juice or other sugar-sweetened [] Milk [] Alcohol - (How much? Appetite/Hunger: [] Poor appetite r/t [] Currently well-managed [] Not managed (see interview) Bariatric eating behaviors Checked boxes are currently being met (other notes below in bold): [x] Stop eating at comfortable full point (eating slowly to know, chewing thoroughly); will continue to be aware [x] Regular meal pattern, avoid grazing, reasonable snack frequency [x] Plan protein at all meals and snacks, eat protein first [x] Decrease sources of concentrated (added) sugars or high-fat foods [x] Track foods in notebook with calories or by using an yasmeen [x] Understand portions and total food consumed [x] Total water intake [] eating and drinking by 30 minutes on either side; continue to work [] Sip rather than gulp; continue to work [x] Eliminate diet or regular soda prior to surgery [x] Reduce coffee intake down to ~1 cup (caffeine) prior to surgery [] Reduce alcohol, ideally avoid [x] No nicotine (STOP date, if applicable: Activity: [x] reviewed current goals; 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 Try Bolthouse dressing to reduce calories and increase in place Ranch 2. Work towards reducing total calroeus gradually to aim for 0474-5323 kcals (aim to reduce each meal by [...] Handouts provided today: Readiness for surgery summary: [x] Needs additional dietary support to reach above goals; not ready for transition to surgical team. Follow-up plan below [] Pre-Bariatric nutrition goals met; ready for transition to surgical team Monitor/Evaluate: [] Needs additional fuv scheduled with this telegraphic typewriter operator chief: No follow-ups on file. (OR) [] Currently scheduled for: [] 1st consecutive monthly nutrition visit [x] 2nd consecutive monthly nutrition visit [x] 3rd consecutive monthly nutrition visit (OR) [] Patient has met requirement of 3 consecutive monthly nutrition visits Above determined to the best ability of this telegraphic typewriter operator chief. Patient will contact bariatric surgery team for any official determination about about scheduling and insurance requirements ( ) Thank you Courtney Kennedy MS, RD LD 30 minutes were spent in [id number] (virtual or in-person) contact during visit today documented in this encounter Plan of Treatment Upcoming Encounters Date Type Department Care Team (Late st Contact Info) Description 08/17/2024 11:00 AM EST Office Visit [place] [address] Lamar Alonzo MD [facility] DR [facility] [place] [address] documented as of this encounter Goals Goal Patient Goal Type Associated Problems Recent Progress Patient-Stated? Author Follow your diet plan as advised by your coordinator of placement Courtney Owens RD Note: Images from the original note were not included. Nutrtion Goals: 04/25/23 TF Nutrition Goals: 03/28/23 TF Review and continue to work on the Eating Behaviors for success post gastric bypass Nutrition Goals updated today: 10/22/22 TF 1. Try Bolthouse dressing to reduce calories and increase in place Ranch 2. Work towards reducing total calroeus gradually to aim for 4501-1990 kcals (aim to reduce each meal by [...] type documented in this encounter Care Teams Oyster Preparer Relationship Specialty Start Date End Date Keena Rosales APRN [address] [place] [address] PCP - General Family Medicine 11/04/21 documented as of this encounter
--- OUTSIDE RECORDS SUMMARY | 2024-07-13 14:56 | XMS_ITS | Encounter Summary ---
Author Organization [facility] [place] [address] Care Team Providers Care Data Processing Systems Consultant Name Role Phone Keena Rosales APRN Primary Care Provider [phone] Encounter Details Date Type Department Care Team (Latest Contact Info) Description 05/30/2022 Travel Social History Tobacco Use Types Packs/Day [...] AM EST Office [place] [address] Lamar Alonzo MD [facility] [address] [facility] [place] [address] documented as of this encounter Visit Diagnoses Not on filedocumented in this encounter Care Teams Data Processing Systems Consultant Relationship Specialty Start Date End Date Keena Rosales APRN [address] [place] [address] PCP - General Family Medicine 11/04/21 documented as of this encounter
--- OUTSIDE RECORDS SUMMARY | 2024-07-13 14:56 | XMS_ITS | Encounter Summary ---
Author Organization [facility] [place] [address] Care Team Providers Care Svp Research & Ebusiness Operations Name Role Phone Pipo Frazier Primary Care Provider [phone] Reason for Visit * Auth/Cert Specialty Diagnoses / Procedures Referred By Alma ortega Referred To Contact Diagnoses Cholecystitis Procedures EMERGENCY IPI Referral ID Status Reason Start Date Expiration Date Visits Re quested Visits Authorized [id number] 1 1 Encounter Details Date Type Department Care Team (Late st Contact Info) Description 11/14/2019 10:29 AM EDT Anesthesia Event [place] [address] Sarah Colby MD [facility] [place] [address] Valerie Garcia MD Anesthesia Record Procedure Summary Procedure Name Responsible Anesthesiologist Anesthesia Start Time Anesthesia Stop Time LAPAROSCOPIC CHOLECYSTECTOMY WITH CHOLANGIOGRAM (WRVU 11.47) (Abdomen) Sarah Colby MD 11/14/19 1029 11/14/19 1402 Events Date Time Event Comment 11/14/2019 1000 1029 AN Verify 1029 Start 1029 An Start Data 1038 An Induction 1039 An Intubation 1042 Anesthesia Ready 1113 Break/Relief In I assumed ca re for Break Relief before which we: 1. Identified the patient 2. Identified the responsible provider(s) 3. Reviewed the pertinent medical history 4. Discussed the surgical plan and course 5. Reviewed intra-op anesthesia management and issues during anesthesia 6. Set expectations for the relief (and/or post-procedure) period 7. Allowed opportunity for questions and acknowledgement of understanding Argelia Foss CRNA 1152 Break/Relief Out 1353 Extubation/LMA Out 1354 an stop data 1358 Recovery or ICU Handoff Kimberly ent care was transferred to the destination unit staff after review of the patient's medical history, current anesthetic/surgical status and plan, according to the Provider Handoff Checklist. 1402 Stop Meds Name Total Midazolam 2 mg fentaNYL 100 mcg IV Lidocaine 100 mg Propofol 500 mg Rocuronium 140 mg PHENYLephrine 280 mcg Ondansetron 8 mg Succinylcholine 200 mg piperacillin-tazobactam (ZOS YN) 3.375 g vial attach to sodium chloride 0.9% 50 mL Mini-Bag Plus 3.375 g Dexmedetomidine 28 mcg Sugammadex 400 mg Lactated Ringers 1,000 mL * Agents Name O2 Air N2O Sevoflurane (et) * Blood No blood administrations on file. Lines, Drains, and Airways Type Details Placement Removal (RETIRED) Peripheral IV Line - Single Lumen 11/13/19; 2008; cephalic vein (lateral side of arm), left; [id number]-gkr-[id number] catheter system; 22 gauge, 1 in length; tolerated well, appears comfortable; 1; cephalic vein (lateral side of arm), left; catheter/device intact, removed per policy/procedure, removed per physician; 11/14/19; 1841 11/13/192008 by Jayna oCle RN 11/14/19 184 by Taniya Rolle RN NG/OG Tube 11/14/19; 1042; orogastric; 16 Fr; 11/14/19; 1325 11/14/19 1042 by Ilan Jimenez CRNA 11/14/19 1325 by Ilan Jimenez CRNA ETT Mask Ventilation: No t Attempted (0); ETT Type: Cuffed, Oral; ETT Size: 8 mm; Mac Blade: 4; Notes: Asleep, Cricoid Pressure, Stylette, RSI, Pre-O2; Attempts: 1; Laryngoscopy Grade: 1; ETT Placement Verified By: Capnometry, Visual; Secured at Teeth: 225 cm; Inserted by: PATRICIA Jimenez; Removal Date: 11/14/19; Removal Time: 1353 11/14/19 1044 by Ilan Jimenez CRNA 11/14/19 1353 by Ilan Jimenez CRNA Urethral Catheter 11/14/19; 1046; Surg kamran longer than 2 hours, Need for intraoperative urine output monitoring, Physician order; Prolonged Immobilization, Physician order; indwelling double lumen catheter; latex; 15; inserted at this facility; 1; 10; 10; none; leg bag to dependent drainage; 11/14/19; 1348 11/14/19 1046 by Toña Alexander RN 11/14/19 1348 by Marta [place] RN Incision 11/14/19; 1107; lowe r quadrant; laparoscopic punctures (specify) (X5 TROCAR PUNCTURES); 03/08/22 (LDA cleanup utility RA#[id number]); 1715 (LDA cleanup utility RA#[id number]) 11/14/19 1107 by Toña Alexander RN 03/08/22 1715 by Analilia Lemons documented in this encounter Social History Tobacco Use Types Packs/Day Years Used Date Smoking Tobacco: Never Assessed Sex and Gender Information Value Date Recorded Sex Assigned at Not on file Gender Identity Not on file Sexual Orientation Not on file documented as of this encounter OR Notes * Anesthesia Postprocedure Evaluation - Valerie Garcia MD - 11/14/2019 2:29 PM EDT Department of Anesthesiology Post-procedure Note Patient: René Wayne Procedure Summary Date: 11/14/19 Room / Location: [facility] OR [address] [place] [address] MAIN OR Anesthesia Start: 1029 Anesthesia Stop: Procedure: LAPAROSCOPIC CHOLECYSTECTOMY WITH CHOLANGIOGRAM (WRVU 11.47) (N/A Abdomen) Diagnosis: (cholecystitis) Surgeon: Onesimo Chaves MD Responsible Provider: Sarah Colby MD Anesthesia Type: general ASA Status: 3 All Anesthesia Providers: Anesthesiologist: Sarah Colby MD SPORTS MEDICINE TRAINER: Ilan Jimenez CRNA Glass Breaker: Valerie Garcia MD Vitals Value Taken Time BP 163/61 11/14/2019 2:15 PM Temp 37 ??C (98.6 ??F) 11/14/2019 1:55 PM Pulse 88 11/14/2019 2:27 PM Resp 18 11/14/2019 2:15 PM SpO2 91 % 11/14/2019 2:27 PM Pain Level 0 11/14/2019 1:55 PM Vitals shown include unvalidated device data. Patient Location: PACU/[facility] Level of Consciousness: Awake and Alert Pain Management: Satisfactory Analgesia PONV: None Cardiovascular Status: Hemodynamically Stable Respiratory Status: Stable Respiratory Status Postoperative Fluid Status: Intravascular EUvolemia Possible Anesthetic Complications: NONE apparent at time of evaluation Final Primary Anesthesia Type: General (The anesthetic type performed was the same as planned.) Comments: * Anesthesia Preprocedure Evaluation - Valerie Garcia MD - 11/14/2019 6:41 AM EDT Pre-Anesthesia Evaluation for: René Wayne a 34 y.o. male. Procedure(s): LAPAROSCOPIC CHOLECYSTECTOMY [facility]OLANGIOGRAM [facility] Patient Active Problem List Diagnosis ??? Acute cholecystitis ??? Anxiety No past medical history on file. No past surgical history on file. Social History Tobacco Use ??? Smoking status: Not on file Substance Use Topics ??? Alcohol use: Not on file Social History Substance and Sexual Activity Drug Use Not on file No Known Allergies Medications: MAR and/or home medications have been reviewed. Physical Exam: Most Recent Vitals: 11/14/19 0623 BP: 162/81 Resp: 18 Temp: 37.1 ??C (98.8 ??F) SpO2: 96% There is no height or weight on file to calculate BMI. Airway Assessment: Mallampati: II TM distance: >3 FB Neck ROM: full Cardiovascular Assessment: cardiovascular exam normal Pulmonary Assessment: pulmonary exam normal Dental Assessment: - normal exam Misc Assessment: IV access: Peripheral line Anesthesia Plan: ASA 3 general, with a(n) intravenous induction John Wayne is a 34yo morbidly obese male with a hx of alcohol use disorder (drinks half gallon of vodka a week with his last drink on Tuesday), SUDHA on CPAP, anxiety, here for a laparoscopic cholecystectomy. No prior anesthesia records. No personal or fhx of anesthesia problems. Currently afebrile. Received 1 dose of ativan last night. Tachycardic. Hgb 13.9, Plt 292K, Na 140, K 3.9, Cr 0.7 Plan GA ETT RSI Region - Other Informed Consent: Anesthetic plan and risks discussed with patient. Use of blood products discussed with patient who consented to blood products. Plan discussed with attending. PAT Clinic Note documented in this encounter Plan of Treatment Upcoming Encounters Date Type Department Care Team (Late st Contact Info) Description 08/17/2024 11:00 AM EST Office [place] [address] Lamar Alonzo MD [facility] [address] [facility] [place] [address] documented as of this encounter Visit Diagnoses Not on filedocumented in this encounter Administered Medications Inactive Administered Medications - up to 3 most recent administrations Medication Order MAR Action Action Date Dose Rate Site dexmedetomidine (PRECEDEX) injection PRN, Starting on Tue11/14/19 at 1036, Until Tue11/14/19 at 1436, Anesthesia Intra-op, Routine Given 11/14/2019 1:13 PM EDT 8 mcg Given 11/14/2019 10:47 AM EDT 12 mcg Given 11/14/2019 10:36 AM EDT 8 mcg fentaNYL 50 mcg/mL multi-dose injection PRN, Starting on Tue11/14/19 at 1318, Until Tue11/14/19 at 1436, Anesthesia Intra-op, Routine Given 11/14/2019 1:18 PM EDT 50 mcg Given 11/14/2019 1:13 PM EDT 50 mcg lactated ringers infusion CONTINUOUS PRN, Starting on Tue11/14/19 at 1029, Until Tue11/14/19 at 1436, Anesthesia Intra-op New Bag 11/14/2019 1:39 PM ED T New Bag 11/14/2019 10:29 AM EDT lidocaine (PF) (XYLOCAINE) 100 mg/5 mL (2 %) injection PRN, Starting on Tue11/14/19 at 1036, Until Tue11/14/19 at 1436, Anesthesia Intra-op, Routine Given 11/14/2019 10:36 AM EDT 100 mg midazolam (PF) (VERSED) multi-dose injection PRN, Starting on Tue11/14/19 at 1038, Until Tue11/14/19 at 1436, Anesthesia Intra-op, Routine Given 11/14/2019 10:34 AM EDT 2 mg ondansetron (ZOFRAN) injection PRN, Starting on Tue11/14/19 at 1305, Until Tue11/14/19 at 1436, Anesthesia Intra-op, Routine Given 11/14/2019 1:05 PM EDT 8 mg PHENYLephrine in NS (PF) (GABY-SYNEPHRINE) 0.8 mg/10 mL (80 mcg/mL) multi-dose injection Syrg PRN, Starting on Tue11/14/19 at 1117, Until Tue11/14/19 at 1436, Anesthesia Intra-op, Routine Given 11/14/2019 11:32 AM EDT 120 mcg Given 11/14/2019 11:28 AM EDT 80 mcg Given 11/14/2019 11:17 AM EDT 80 mcg piperacillin-tazobactam (ZOSYN) 3.375 g vial attach to [...] 9:24 PM EDT 3.375 g 12.5 mL/hr propofol (DIPRIVAN) 10 mg/mL bolus injection (Anesthesia) PRN, Starting on Tue11/14/19 at 1038, Until Tue11/14/19 at 1436, Anesthesia Intra-op Given 11/14/2019 1:44 PM EDT 50 mg Given 11/14/2019 1:36 PM EDT 50 mg Given 11/14/2019 1:27 PM EDT 50 mg rocuronium (ZEMURON) multi-dose injection PRN, Starting on Tue11/14/19 at 1047, Until Tue11/14/19 at 1436, Anesthesia Intra-op, Routine Given 11/14/2019 12:29 PM EDT 20 mg Given 11/14/2019 11:45 AM EDT 20 mg Given 11/14/2019 11:22 AM EDT 30 mg succinylcholine chloride (Quelicin) injection PRN, Starting on Tue11/14/19 at 1038, Until Tue11/14/19 at 1436, Anesthesia Intra-op, Routine Given 11/14/2019 10:38 AM EDT 200 mg sugammadex (BRIDION) 100 mg/mL injection PRN, Starting on Tue11/14/19 at 1335, Until Tue11/14/19 at 1436, Anesthesia Intra-op, Routine Given 11/14/2019 1:35 PM EDT 400 mg documented in this encounter Care Teams Svp Research & Ebusiness Operations Relationship Specialty Start Date End Date Pipo Frazier PA [address] [place] [address] PCP - General General Internal Medicine 11/28/1501/12 documented as of this encounter
--- OUTSIDE RECORDS SUMMARY | 2024-07-13 14:56 | XMS_ITS | Encounter Summary ---
Author Organization [facility] [place] [address] Care Team Providers Care Ruling Machine Set Up Operator Name Role Phone Keena Rosales APRN Primary Care Provider [phone] Encounter Details Date Type Department Care Team (Latest Contact Info) Description 06/01/2022 Travel Social History Tobacco Use Types Packs/Day [...] AM EST Office [place] [address] Lamar Alonzo MD [facility] DR [facility] [address] documented as of this encounter Visit Diagnoses Not on filedocumented in this encounter Care Teams Ruling Machine Set Up Operator Relationship Specialty Start Date End Date Keena Rosales APRN [address] [place] [address] PCP - General Family Medicine 11/04/21 documented as of this encounter
--- OUTSIDE RECORDS SUMMARY | 2024-07-13 14:56 | XMS_ITS | Encounter Summary ---
Author Organization [facility] Address [facility] [place] [address] Care Team Providers Care Cane Flume Feeding Machine Operator Name Role Phone Keena Rosales APRN Primary Care Provider [phone] Encounter Details Date Type Department Care Team (Latest Contact Info) Description 10/14/2022 Travel Social History Tobacco Use Types Packs/Day [...] AM EST Office [place] [address] Lamar Alonzo MD [facility] DR [facility] [place] [address] documented as of this encounter Goals Goal Patient Goal Type Associated Problems Recent Progress Patient-Stated? Author Follow your diet plan as advised by your handle turner Diet Courtney Mccallum RD Note: Images from the original note were not included. Nutrtion Goals: 04/25/23 TF Nutrition Goals: 03/28/23 TF Review and continue to work on the Eating Behaviors for success post gastric bypass Nutrition Goals updated today: 10/22/22 TF 1. Try Bolthouse dressing to reduce calories and increase in place Ranch 2. Work towards reducing total calroeus gradually to aim for [id number] kcals (aim to reduce each meal by [...] on filedocumented in this encounter Care Teams Cane Flume Feeding Machine Operator Relationship Specialty Start Date End Date Keena Rosales APRN [address] [place] [address] PCP - General Family Medicine 11/04/21 documented as of this encounter
--- OUTSIDE RECORDS SUMMARY | 2024-07-13 14:56 | XMS_ITS | Encounter Summary ---
Author Organization [facility] [place] [address] Care Team Providers Care Elementary Esl Teacher Name Role Phone Keean Rosales YEYO Primary Care Provider [phone] Encounter Details Date Type Department Care Team (Late st Contact Info) Description 02/11/2022 11:25 PM EDT Ancillary Procedure Radiology [facility] [place] [address] Suraj Lomax MD [facility] [place] [address] Social History Tobacco Use Types Packs/Day Years [...] AM EST Office [place] [address] Lamar Alonzo MD [facility] DR [facility] [place] [address] documented as of this encounter Procedures Procedure Name Priority Date/Time Associated Diagnosis Comments FILM LIBRARY STORAGE ONLY CT HEAD AND SPINE Routine 02/11/2022 11:20 PM EDT documented in this encounter Results * Film Library- Storage Only CT Head And Spine (02/11/2022 11:20 PM EDT) Narrative RAD - 02/11/2022 11:20 PM EDT This exam is auto-finalizing. It's purpose is for storage only. Suraj Lomax MD IMG FILM LIBRARY ORD ERABLES [place], [place] documented in this encounter Visit Diagnoses Not on filedocumented in this encounter Care Teams Elementary Esl Teacher Relationship Specialty Start Date End Date Keena Rosales, YEYO [address] [place] [address] PCP - General Family Medicine 11/04/21 documented as of this encounter
--- OUTSIDE RECORDS SUMMARY | 2024-07-13 14:56 | XMS_ITS | Encounter Summary ---
Author Organization [facility] Address [facility] [place] [address] Care Team Providers Care Motor Analyst Name Role Phone Keena Rosales APRN Primary Care Provider [phone] Reason for Referral * Consultation (Urgent) - Closed Specialty Diagnoses / Procedures Referred By Contac t Referred To Contact Weight and Wellness Diagnoses Class 3 severe obesity with serious comorbidity and body mass index (BMI) of 60.0 to 69.9 in adult, unspecified obesity type Lamar Alonzo MD [facility] [place] [address] [facility] [place] [address] Referral ID Status Reason Start Date Expiration Date V isits Requested Visits Authorized [id number] Closed Consult, Test & Treat 08/25/2022 08/25/2023 1 1 Reason for Visit * Reason Comments Establish Care Weight managment * Consultation (Routine) - Closed Specialty Diagnoses / Procedures Referred By Contac t Referred To Contact Weight and Wellness Diagnoses Obesity bariatric surgery candidate - see notes Katherin Obando APRN [facility] [place] [address] [facility] [address] [place] [address] Referral ID Status Reason Start Date Expiration Date Visits Re quested Visits Authorized [id number] Closed 06/15/2022 06/15/2023 1 1 Encounter Details Date Type Department Care Team (Late st Contact Info) Description 08/25/2022 1:00 PM EST Office [place] [address] Lamar Alonzo MD [facility] [place] [address] Anxiety; Class 3 severe obesity with serious comorbidity and body mass index (BMI) of 60.0 to 69.9 in adult, unspecified obesity type; SUDHA on CPAP; Hypertension, unspecified type; Hypertriglyceridemia ; Frequent headaches; Research study patient Social History Tobacco Use Types Packs/Day Years Used Date Smoking Tobacco: Never Assessed Sex and Gender Information Value Date Recorded Sex Assigned at Not on file Gender Identity Not on file Sexual Orientation Not on file documented as of this encounter Last Filed Vital Signs Vital Sign Reading Time Taken Comments Blood Pressure 127/69 08/25/2022 1:06 PM EST Pulse 82 08/25/2022 1:06 PM EST Temperature - - Respiratory Rate - - Oxygen Saturation 97% 08/25/2022 1:06 PM EST Inhaled Oxygen Concentration - - Weight 219.6 kg (484 lb 3.2 oz) 08/25/2022 1:06 PM EST Height 179.1 cm (5' 10.5) 08/25/2022 1:06 PM ES T Body Mass Index 68.49 08/25/2022 1:06 PM EST documented in this encounter Progress Notes * Sabrina Adames R - 08/25/2022 1:00 PM EST RESEARCH STUDY CONSENTING VISIT Visit Date: 08/25/22 PI/Designee: Dr. Brandon Aragon/Sabrina Adames [facility] [id number]: [facility] Biorepository VELOS: [id number] René Stephens Tone consented via electronic consent to participate in the above- named protocol. Prior to giving informed consent, the subject had the opportunity to: ?? Read the consent form (or have it read to him/her) ?? Discuss the protocol participation with research (or designee) including: ?? Purpose of the study ?? Painful or uncomfortable procedures ?? Risks/benefits ?? Alternatives ?? Who to call with questions ?? Withdrawal rights ?? Ask questions; and ?? Consult with family or other physicians ?? The subject indicated his/her consent by signing and dating the Patient Informed Consent Form ?? Informed consent was conducted prior to any research-related procedures. ?? The subject was provided with a fully executed copy of the consent. Lamar Lowe MD - 08/25/2022 1:00 PM Bernice: 1st visit with [facility] Patient Name: René Wayne Date of : 1985 Age: 37 y.o. Referring provider: Katherin Obando Dear Keena Rosales APRN, Katherin Obando Thank you for referring René Wayne to the [facility] [place]. René Wayne presented to the [facility] for a consultative visit regarding obesity management. The patient presented with WHO Class 3 / EOSS Stage 2 Obesity defined by a BMI of Body mass index is 68.49 kg/m??. and comorbidities: HTN, SUDHA on CPAP, anxiety, FLD, hyper TG. René and I discussed and agreed upon the pillars of obesity treatment: nutrition, activity, behavioral change and medication management. Our team will address each of these pillars as we provideongoing comprehensive obesity care for René. I look forward to collaborating with you and René on this journey. To that end, I will make medication adjustments as appropriate based on the patient's ongoing state of health and provide referrals as they relate to his obesity care. Medications that I often manage include, but are not limited to, anti- obesity meds, diabetic medications and anti-hypertensives. Any medication adjustments I make will be communicated to you to maintain seamless care. For referrals and other specific care plans, see the Assessment and Plan: ASSESSMENT: René Wayne is a 37 y.o. male with uncontrolled obesity who presented to [facility] today for medical evaluation with associated co-morbidities as above. Obesity is a multifactorial disease, and in this case, the following factors could be potential contributors: ?? Obesity is caused by hormonal disorder of fat regulation and insulin is the major hormone that drives weight gain. ?? Genetics and Epigenetics: +FHx ?? Insulin resistance: ? ?? Timing of meals/Circadian pattern: NO ?? Consumption of sugar and highly refined carbohydrates (processed foods)--consumption of foods that are high in sugar and processed that can lead to metabolic/hormonal changes that can increase body fat by causing insulin resistance. ?? Low intake of fat fighting foods (fruits, vegetables, legumes, nuts, seeds, quality protein) ?? Medications: beta arsh, ?effexor ?? Sleep Disturbance:insomnia/SUDHA + SUDHA on CPAP ?? Disordered Eating:NO ?? Inactivity ?? Stress and too much cortisol: Prolonged cortisol release associated with chronic stress is strongly correlated with the development of obesity PLAN: 1. Will start topiramate, consider naltrexone - pt has 20# wt loss requirement 2. RD x 3 3. Referral to [facility] placed 4. Routine MD f/u CHIEF COMPLAINT: Management of excess weight, pursuing BS HISTORY OF PRESENT ILLNESS: Worked with [facility] for a year, constantly moving the goalpost. I gained some weight, then lost 50 lbs but it was not enough for the program. I was constantly going in there every month, trying differentdiets every month, without assistance - they were just shrugging and saying you are still too fat. It was just disheartening. Weight History: No flowsheet data found. René Wayne has had gradual weight gain due to: genetics, stress Why is now the time to try again? Wants to lose, have surgery Barriers to success: I suffer from massive anxiety Impact on life: Significant Weight hx: Onset: I have been a big boy ever since 3rd grade - the biggest kid in my class. In HS, about 350 lbs - Atkins in [place] year, lost 150 lbs, doing good and then once you stop. . It sneaks back up. Max wt: 520 lbs Lowest wt and when: 380 lbs in past 10 years Successful attempts in the past: Atkins What was helpful from that/those programs? Diets work for a while and then my body is like no no no and I regain Family Hx of Obesity? Everyone is on the bigger side Hx medications to treat obesity: Metformin 2000 mg , Victoza 1.8 mg -> at first felt full and sick, bloated - so not much of an appetite Wellbutrin -> worsened anxiety Hx metabolic surgery:pursuing now Initial weight 08/25/22: 484 lbs Initial Body mass index is 68.49 kg/m??. Goal weight: 250 lbs? 10% loss: 48 lbs Other goals: I just want to be active and moving, maybe see my toes! Less about the number. No flowsheet data found. Obesogenic medications: Propanolol, ?effexor Obesity related co-morbidities: HTN, SUDHA on CPAP, anxiety No flowsheet data found. 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 SUDHA on CPAP []S []T []O []P []B []A []N []G: No flowsheet data found. Daily Routine Time to Bed? 10 PM Time to Sleep? 30-60 minutes When do you wake? 830-9 AM Eating episode #1 B - eggs and toast Eating episode #2 L - small snack - mixed nuts Eating episode #3 D - 730-9 PM - turkey burgers, salad, cottage cheese Snacking? On days off, grapes/apples, avoid chips; if hungry makes alexandre burrito After dinner eating? NO Eating before bed to sleep? I don't know - eating makes my dreams weirder What do you drink? Mostly flavored water, seltzer, no SSB - know to cut out seltzer preop Food Behaviors Appetite: Yes, if food is in front of me I can eat - I never feel starving and never feel full Satiety/Fullness: A thanksgiving dinner Cravings? Not particularly, not a sweets kind of south Eating out of: [x]Hunger []Habit []It's time. [x]Boredom [x]Emotions Eating patterns: [x] Mindless eating [] binge eating [] Grazing [] skips meals [x] Night eating-NO Movement: No flowsheet data found. Is ambulation limited most or all of the time? NO Tolerance: he can climb a flight of stairs? YES Purposeful exercise now? Walks daily Activity enjoyed in past? 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 No flowsheet data found. No flowsheet data found. MEDICAL HISTORY Medical and Surgical History: Reviewed. No past medical history on file. PSurgHx: Lap CCY 2019 Medication C/I: GB? NO Any h/o pancreatitis? NO Any h/o kidney stones? NO Any h/o or FHx of thyroid CA (MTC?) NO Any h/o kidney disease/failure? NO Any h/o glaucoma? NO Family History: Reviewed. No flowsheet data found. Social History: /Partner? GF Cherelle Children? NO Smoking? NO ETOH? Used to on occasion, not for past year and half Other substances? NO No flowsheet data found. VITAL SIGNS: Vitals: 08/25/22 1306 BP: 127/69 Pulse: 82 SpO2: 97% Weight: (!) 219.6 kg (484 lb 3.2 oz) Height: 179.1 cm (5' 10.5) Body mass index is 68.49 kg/m??. PHYSICAL EXAM: Gen: 37 y.o. year old male with obesity who appears stated age. NAD. Body fat distribution- predominantly generalized. Appearance: appropriate, well-kempt Psych: pleasant, conversant and engaged, normal affect, cognition and mood. PREVIOUS LABS AND IMAGING: Reviewed Last CBC Lab Results Component Value Date WBC 8.31 04/22/2022 RBC 5.17 11/14/2019 HGB 12.8 04/22/2022 HCT 39.0 04/22/2022 MCV 85.9 11/14/2019 MCH 26.9 (L) 11/14/2019 MCHC 31.3 (L) 11/14/2019 PLATELET 315 04/22/2022 RDWCV 14.8 (H) 11/14/2019 Last CMP Lab Results Component Value Date NA 140 02/12/2022 K 3.9 02/12/2022 CL 105 02/12/2022 CO2 26 11/14/2019 BUN 15 02/12/2022 CREATININE 0.6 02/12/2022 GLUCOSE 115 11/14/2019 CALCIUM 9.3 11/14/2019 ESTGFR 123 11/14/2019 Lab Results Component Value Date ALT 53 02/12/2022 AST 29 02/12/2022 ALKPHOS 67 11/14/2019 BILITOT 0.7 11/14/2019 BILIDIR 0.1 11/14/2019 ALBUMIN 3.8 11/14/2019 PROT 6.7 11/14/2019 Lipid Panel Lab Results Component Value Date CHLPL 144 02/12/2022 HDL 28 02/12/2022 TRIG 239 02/12/2022 LDLCHOL 69 02/12/2022 Last 3 Hemoglobin A1Cs Lab Results Component Value Date HA1C 5.3 02/12/2022 Latest TSH Lab Results Component Value Date TSH 1.39 02/12/2022 No results found for: LABINSU No results found for: GLUCFASTING No results found for: FERRITIN Lab Results Component Value Date [id number] 310 04/22/2022 No results found for: 25OHVITD INITIAL EVALUATION: FACTORS CONTRIBUTING TO OBESITY/INTERVENTION Risk Stratification: probable insulin resistance Obesogenic meds: Antihypertensive, Anti-depressant Plan: No change at this time Co-morbidities to address: Anxiety, HTN, Hyperlipidemia and SUDHA-treated AOM: Wellbutrin/phentermine C/I due to severe anxiety. Will try topiramate rx today Medication considerations: []insulin sensitizing meds []phentermine []topiramate []bupropion []naltrexone Factors contributing to decision making: NO hx of pancreatitis, NO Fam or personl hx of medullary thyroid ca, NO hx of kidney stones, NO Hx of glaucoma/regular eye check ONGOING INTERVENTIONS Referrals: Dietitian, individual Pyschology, embedded, bariatric For specific behavioral interventions, see goals Nutrition: discussed whole food, quality diet; specific recommendations per RD Prebariatric counseling Behavior: Eating related to boredom/emotions, Mindless Eating Activity: provided resistance bands and booklet, Advancing Barriers: []needs cardiac eval []injury/pain preventing activity right now Stress Management:no concerns Sleep: SUDHA - treated Self-monitoring: Food log Discussion 08/25/22: Pillars, Set point theory, Medication options with r/b and Bariatric surgery pathway/process. Reviewed checklist w pt, message sent to BS about start wt - 484 today. Wrong checklist in this chart, will correct with BS. Charanjit Behaviors sent to pt today for his review. René was seen today for establish care. Diagnoses and all orders for this visit: Anxiety Class 3 severe obesity with serious comorbidity and body mass index (BMI) of 60.0 to 69.9 in adult,unspecified obesity type SUDHA on CPAP Hypertension, unspecified type Hypertriglyceridemia Frequent headaches - topiramate (Topamax) 25 mg Tablet; Take 1 tablet by mouth daily for 14 days, THEN 2 tablets daily. Take with dinner Research study patient - Biorepository Request; Future - Biorepository Request; Future Orders Placed This Encounter Procedures ??? Biorepository Request ??? Biorepository Request Return in about 8 weeks (around 10/20/2022) for In person or Zoom, With me, Schedule RD x 3 visits, Referral to pre charanjit psych placed. I spent a total of 60 minutes in [id number] discussion/counseling regarding the diagnosis of obesity, interventions for treatment, and obesity related co- morbidities as well as documentation of visit and chart review, including notes, labs, and other evaluations as reviewed below. Goals Addressed None Care pathway: Pathway: [facility] PATHWAY - ADULT 08/25/2022 Pre- Bariatric Surgery Activate Adult Biobank Activate I spoke with René about opportunities to participate in research and to be contacted by our research warehouse administrative assistant. They indicated that they are: [x] INTERESTED [] NOT INTERESTED // [] NOT ADDRESSED No flowsheet data found. URICA: <8 Precontemp, 8-12 Contemp, 12+ Prep TFEQ: Look at transformed scores, average is 50, +/-2SD is sigfnif, consider referral >70 WEL-SF: Range 0-80, higher = better PROMIS Avg score = 50 REAP score 13-39, higher = more diversity in diet, better documented in this encounter Plan of Treatment Upcoming Encounters Date Type Department Care Team (Late st Contact Info) Description 08/17/2024 11:00 AM EST Office [place] [address] Lamar Alonzo MD [facility] [place] [address] Scheduled Referrals Name Type Priority Associated Diagnoses Orde r Schedule Amb Referral to [facility] Psych Evaluation Outpatient Referral Routine Class 3 severe obesity with serious comorbidity and body mass index (BMI) of 60.0 to 69.9 in adult, unspecified obesity type Ordered: 08/25/2022 documented as of this encounter Procedures Procedure Name Priority Date/Time Associated Diagnosis Comments BIOREPOSITORY REQUEST Routine 09/14/2022 1:15 PM EST documented in this encounter Results * Biorepository Request (09/14/2022 1:15 PM EST) Biorepository Hold Sample in lab [facility] Stool Stool / Unknown 09/14/2022 1 :15 PM EST 09/20/2022 9:26 AM EDT Narrative Resulting Agency Comment Spec In Lab Lamar Alonzo MD [facility] PADILLA [facility] [place] [address] * Biorepository Request (08/25/2022 2:58 PM EST) Biorepository Hold Sample in lab [facility] Blood 08/25/2022 2:58 PM EST 08/25/2022 3:21 PM EST Narrative Resulting Agency Comment Spec In Lab Lamar CAMPA [facility] [place] [address] documented in this encounter Visit Diagnoses Diagnosis Anxiety Anxiety state, unspecified Class 3 severe obesity with serious comorbidity and body mass index (BMI) of 60.0 to 69.9 in adult, unspecified obesity type SUDHA on CPAP Obstructive sleep apnea (adult) (pediatric) Hypertension, unspecified type Hypertriglyceridemia Pure hyperglyceridemia Frequent headaches Research study patient Reserved for inherently not codable concepts WITHOUT codable children documented in this encounter Care Teams Motor Analyst Relationship Specialty Start Date End Date Keena Rosales APRN [address] [place] [address] PCP - General Family Medicine 11/04/21 documented as of this encounter
--- OUTSIDE RECORDS SUMMARY | 2024-07-13 14:56 | XMS_ITS | Encounter Summary ---
Author Organization [facility] [place] [address] Care Team Providers Care Cryolite Recovery Operator Name Role Phone Pipo Frazier Primary Care Provider [phone] Encounter Details Date Type Department Care Team (Late st Contact Info) Description 11/20/2019 Telephone General Surgery at [facility] [place] [address] Nataliya Lange RN Social History Tobacco Use Types Packs/Day Years Used Date Smoking Tobacco: Never Assessed Sex and Gender Information Value Date Recorded Sex Assigned at Not on file Gender Identity Not on file Sexual Orientation Not on file documented as of this encounter Miscellaneous Notes * Telephone Encounter - Nataliya Avery RN - 11/20/2019 4:36 PM EDT Patient is S/P Case Date: 11/14/2019 ?? Surgeon: Surgeon(s) and Role: * Onesimo Chaves MD - Primary * Sai Allen MD - Resident ?? Preoperative diagnosis: cholecystitis ?? Postoperative diagnosis: Cholecystitis ?? Procedure(s) (LRB): LAPAROSCOPIC CHOLECYSTECTOMY WITH CHOLANGIOGRAM (WRVU 11.47) (N/A) ?? Anesthesia:??General Patient phones at 1611 and reports that he woke up this morning with chills, dry heaves and has hada had ache and felt poorly all day. Denies fever, cough and SOB. Patient called his PCP and made anappointment for tomorrow morning. Based on the operative note, advised patient to report to the nearest ER for Labs and probable imaging. He agrees to this plan of care and is nearest [facility]. Anatoly led report to Shana BLANCHARD and during report discovered that their CT scanner has a 200Kg capacity. Phoned patient back and he will go to [place], [place] as he has had a CT scan there before. documented in this encounter Plan of Treatment Upcoming Encounters Date Type Department Care Team (Late st Contact Info) Description 08/17/2024 11:00 AM EST Office [place] [address] Lamar Alonzo MD [facility] DR [facility] [address] documented as of this encounter Visit Diagnoses Not on filedocumented in this encounter Care Teams Cryolite Recovery Operator Relationship Specialty Start Date End Date Pipo Frazier PA [address] [place] [address] PCP - General General Internal Medicine 11/28/1501/12 documented as of this encounter
--- OUTSIDE RECORDS SUMMARY | 2024-07-13 14:56 | XMS_ITS | Encounter Summary ---
Author Organization [facility] Address [facility] [place] [address] Care Team Providers Care Sociology Adjunct Instructor Name Role Phone Yuniel Rosalesyn Maurice ORONA Primary Care Provider [phone] Reason for Visit * Reason Comments Medication Refill Encounter Details Date Type Department Care Team (Late st Contact Info) Description 11/15/2022 [place] [phone] Lamar Alonzo MD [facility] DR [facility] [place] [address] Frequent headaches Social History Tobacco Use Types Packs/Day Years Used Date Smoking Tobacco: Former Cigarettes Smokeless Tobacco: Never Comments:Rare cigarette in [facility] [employer] Overall Financial Resource Strain (CARDIA) Answe [...] AM EST [place] [address] Lamar Alonzo MD [facility] DR [facility] [place] [address] documented as of this encounter Goals Goal Patient Goal Type Associated Problems Recent Progress Patient-Stated? Author Follow your diet plan as advised by your hydraulic mechanic Courtney Owens RD Note: Images from the original note were not included. Nutrtion Goals: 04/25/23 TF Nutrition Goals: 03/28/23 TF Review and continue to work on the Eating Behaviors for success post gastric bypass Nutrition Goals updated today: 10/22/22 TF 1. Try Bolthouse dressing to reduce calories and increase in place Ranch 2. Work towards reducing total calroeus gradually to aim for [phone] kcals (aim to reduce each meal by [...] headaches documented in this encounter Care Teams Sociology Adjunct Instructor Relationship Specialty Start Date End Date Keena Rosales APRN [address] [place] [address] PCP - General Family Medicine 11/04/21 documented as of this encounter
--- OUTSIDE RECORDS SUMMARY | 2024-07-13 14:56 | XMS_ITS | Encounter Summary ---
Author Organization Formerly [facility], [facility] Address [facility] [place] [address] Care Team Providers Care Manager Storage Name Role Phone Bobby Keena H YEYO Primary Care Provider [phone] Encounter Details Date Type Department Care Team (Latest Contact Info) Description 03/01/2023 3:00 PM EDT TH Visit (TeleHealth) [place] [id number] Nilda Gillis, PhD [facility] [address] [place] [address] RUPERT (generalized anxiety disorder) Social History Tobacco Use Types Packs/Day Years Used Date Smoking Tobacco: Former Cigarettes Smokeless Tobacco: Never Comments:Rare cigarette in h [employer] Overall Financial Resource Strain (CARDIA) [...] place to sleep or slept in a prison (including now)? No 10/14/2022 Sex and Gender Information Value Date Recorded Sex Assigned at Not on file Gender Identity Not on file Sexual Orientation Not on file documented as of this encounter Progress Notes * Nilda Gillis, PhD - 03/01/2023 3:00 PM EDT [facility] PSYCHOLOY FOLLOW UP NOTE N [facility] [address] Dept: [phone] Loc: [phone] 03/01/2023 2:27 PM René Wayne is a 37 y.o. [...] visit they were located at work in [place]. René Wayne is aware that for any urgent matter they can call [phone].. RECOMMENDATION BASED ON PSYCHOLOGICAL EVALUATION GREEN LIGHT WITH RECOMMENDATIONS - Based on the information gathered during this assessment there are no contraindication with René Wayne proceeding with surgery. René would benefit from the following to assist with preparing for bariatric surgery: Continue engaging in health promoting behaviors Continue working with your counselor to find ways to react to anxiety other than eating Continue behavioral changes, especially: Sipping water. Use a sippy cup, freeze a partially filled bottle of water and sip as it melts, use a sports bottle with a pop-up lid, keep water available at all times, set timer to remind self to take sips if needed, don???t wait until you???re thirsty to drink The follow up plan is as follows: 8 wk f/u to see how he is doing with behavior change and to monitor anxiety management. SUMMARY The decision noted above is based on the following: René has made significant weight loss attempts in the past, but without lasting success. René experienced some mental health problems in the past year. René experienced some mental health problems earlier in life. René is not engaging in problematic eating behaviors. René is knowledgeable about the surgery and related risks. René's motivation for surgery is: good René's social support is: good René is aware of expected surgery weight loss with surgery. René is aware of the habit changes that will need to occur and is actively engaged in changingthose now. René does not have a history of adherence/attendance issues. DIAGNOSIS Generalized Anxiety Disorder The above assessment and plan was based on the following information obtained during the appointment. Please note section in blue indicates updated information from the previous evaluation: WEIGHT Initial Weight: 484lbs Weight at previous evaluation: 494 lbs Current Weight as of 02/16/23: 493 lbs Weight changes since evaluation: has been stable Progress towards weight loss goal of 453 lbs: poor MENTAL HEALTH UPDATE: René reported that he has been struggling more emotionally recently. 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 Has not had a panic attack in a month - continues to executive coach self through them when they come up using his skills. When anxious worries that he will have a heart attack given significant family hx. Has established care with a counselor, in [facility] about 3 months ago. They are meeting on a monthly basis. Has been using melatonin to assist with sleep. PROBLEM EATING BEHAVIORS From previous evaluation: History [...] 2 wks in a peak of anxiety 03/01/2023: History of nighttime eating (i.e., skipping daytime [...] to a regular meal plan is helping. POST SURGERY EATING HABIT CHANGES AND READINESS From previous evaluation: Eating smaller quantities: Aware of the need and practicing about 0% of the time due to excess hunger. Sipping 48-64oz of water slowly in a day: Aware of the need and practicing about 0% of the time for sipping. Is drinking plenty of water. 03/01/2023: Eating smaller quantities: Aware of the need and practicing about 80% of the time and has been practicing at this rate for about 2-3 month(s). Sipping 48-64oz of water slowly in a day: Aware of the need and practicing about 50% of the time sipping and has been practicing at this ratefor about 2 month(s). Current implementation of habit changes: good The assessment and plan for René Wayne are detailed at the beginning of this report. documented in this encounter Plan of Treatment Upcoming Encounters Date Type Department Care Team (Late st Contact Info) Description 08/17/2024 11:00 AM EST Office [place] [address] Lamar Alonzo MD [facility] [address] [facility] [facility] [place], [place] [id number] documented as of this encounter Goals Goal Patient Goal Type Associated Problems Recent Progress Patient-Stated? Author Follow your diet plan as advised by your offset pressman Courtney Owens RD Note: Images from the original note were not included. Nutrtion Goals: 04/25/23 TF Nutrition Goals: 03/28/23 TF Review and continue to work on the Eating Behaviors for success post gastric bypass Nutrition Goals updated today: 10/22/22 TF 1. Try Bolthouse dressing to reduce calories and increase in place Ranch 2. Work towards reducing total calroeus gradually to aim for 3227-3835 kcals (aim to reduce each meal by [...] disorder documented in this encounter Care Teams Manager Storage Relationship Specialty Start Date End Date Keena Rosales APRN [address] [place] [address] PCP - General Family Medicine 11/04/21 documented as of this encounter
--- OUTSIDE RECORDS SUMMARY | 2024-07-13 14:56 | XMS_ITS | Encounter Summary ---
Author Organization [facility] [place] [address] Care Team Providers Care Financial Analyst Intern Name Role Phone BobbyKeena caro YEYO Primary Care Provider [phone] Encounter Details Date Type Department Care Team (Latest Contact Info) Description 08/25/2022 2:35 PM EST Laboratory Appointment Lab [address] [place] [phone] Research study patient; Steatosis of liver; Hypertension, unspecified type; Pre-procedural [...] AM EST Office [place] [address] Lamar Alonzo MD [facility] DR GREGORY [facility] [address] documented as of this encounter Procedures Procedure Name Priority Date/Time Associated Diagnosis Comments HC VENIPUNCTURE Routine 08/25/2022 2:58 PM EST Research study patient LAB USE ONLY, FAX REQUEST Routine 08/23/2022 Steatosis of liver Hypertension, unspecified type Pre-procedural laboratory examination documented in this encounter Results * Biorepository Request (08/25/2022 2:58 PM EST) Pathologist [facility] Biorepository Hold Sample in lab [facility] Blood 08/25/2022 2:58 PM EST 08/25/2022 3:21 PM EST Narrative Resulting Agency Comment Spec In Lab Lamar CAMPA Performing Organization Address City/[facility]/ZIP Co de Phone Number [facility] [place] [place] [address] * Lab Use Only, Fax Request (08/23/2022) Pathologist [facility] Neutrophil Absolute (ANC) - Automated 5.12 [facility] Blood 08/23/2022 Keena Rosales APRN CHEMISTRY ORDERAB LES Performing Organization Address [facility] [place] [address] documented in this encounter Visit Diagnoses Diagnosis Research study patient Reserved for inherently not codable concepts WITHOUT codable children Steatosis of liver Other chronic nonalcoholic liver disease Hypertension, unspecified type Pre-procedural laboratory examination documented in this encounter Care Teams Financial Analyst Intern Relationship Specialty Start Date End Date Keena Rosales APRN [address] [place] [address] PCP - General Family Medicine 11/04/21 documented as of this encounter
--- OUTSIDE RECORDS SUMMARY | 2024-07-13 14:56 | XMS_ITS | Encounter Summary ---
Author Organization [facility] Address [facility] [place] [address] Care Team Providers Care Portfolio Director Name Role Phone Keena Rosales APRN Primary Care Provider [phone] Encounter Details Date Type Department Care Team (Latest Contact Info) Description 02/16/2023 Travel Social History Tobacco Use Types Packs/Day [...] in a [facility] (including now)? No 10/14/2022 Sex and Gender Information Value Date Recorded Sex Assigned at Not on file Gender Identity Not on file Sexual Orientation Not on file documented as of this encounter Plan of Treatment Upcoming Encounters Date Type Department Care Team (Late st Contact Info) Description 08/17/2024 11:00 AM EST Office [place] [address] Lamar Alonzo MD [facility] DR GREG[facility] [address] documented as of this encounter Goals Goal Patient Goal Type Associated Problems Recent Progress Patient-Stated? Author Follow your diet plan as advised by your commercial escrow assistant Diet Courtney Mccallum RD Note: Images from the original note were not included. Nutrtion Goals: 04/25/23 TF Nutrition Goals: 03/28/23 TF Review and continue to work on the Eating Behaviors for success post gastric bypass Nutrition Goals updated today: 10/22/22 TF 1. Try Bolthouse dressing to reduce calories and increase in place Ranch 2. Work towards reducing total calroeus gradually to aim for 1562-9096 kcals (aim to reduce each meal by [...] on filedocumented in this encounter Care Teams Portfolio Director Relationship Specialty Start Date End Date Keena Rosales APRN [address] [place] [address] PCP - General Family Medicine 11/04/21 documented as of this encounter
--- OUTSIDE RECORDS SUMMARY | 2024-07-13 14:56 | XMS_ITS | Encounter Summary ---
Author Organization [facility] [place] [address] Care Team Providers Care Cable Television Line Technician Name Role Phone Pipo Frazier Primary Care Provider [phone] Encounter Details Date Type Department Care Team (Late st Contact Info) Description 12/08/2019 Telephone [place] [address] Theo Izaguirre MD [facility] [place] [address] Social History Tobacco Use Types Packs/Day Years Used Date Smoking Tobacco: Never Assessed Sex and Gender Information Value Date Recorded Sex Assigned at Not on file Gender Identity Not on file Sexual Orientation Not on file documented as of this encounter Miscellaneous Notes * Telephone Encounter - Theo Izaguirre - 12/08/2019 12:47 AM EDT Mr. Wayne is s/p lap cholecystectomy for acute cholecystitis with Dr. Chaves on 11/13. He called in this evening because of a lump at his supraumbilical incision. He says this has been present basically since surgery but hasn't gone away prompting him to call. It hasn't grown in size. There is some thin / clear drainage that has been present since surgery as well. He says it is a little bit red but not tender or swollen. He denies any fevers or chills. He is otherwise doing well, eating, moving bowels. Explained that this most likely represents a seroma which his body will slowly reabsorb / will drain over time, and reviewed warning signs of a secondary infection that should prompt him to call us again. He conveyed understanding. Theo Izaguirre MD documented in this encounter Plan of Treatment Upcoming Encounters Date Type Department Care Team (Late st Contact Info) Description 08/17/2024 11:00 AM EST Office [place] [address] Lamar Alonzo MD [facility] [address] G[facility] [place] [address] documented as of this encounter Visit Diagnoses Not on filedocumented in this encounter Care Teams Cable Television Line Technician Relationship Specialty Start Date End Date Pipo Frazier PA [address] [place] [address] PCP - General General Internal Medicine 11/28/1501/12 documented as of this encounter
--- OUTSIDE RECORDS SUMMARY | 2024-07-13 14:56 | XMS_ITS | Encounter Summary ---
Author Organization [facility] Address [facility] [place] [address] Care Team Providers Care Residential Finish Carpenter Name Role Phone Keena Rosales APRN Primary Care Provider [phone] Encounter Details Date Type Department Care Team (Latest Contact Info) Description 10/22/2022 2:30 PM EDT TH Visit (TeleHealth) [place] [address] Courtney Kennedy I, RD [facility] [place] [address] Class 3 severe obesity with serious comorbidity [...] - Inhaled Oxygen Concentration - - Weight 221.4 kg (488 lb) 10/22/2022 2:52 PM EDT home scale Height 181 cm (5' 11.26) 10/22/2022 2:52 PM EDT Body Mass Index 67.57 10/22/2022 2:52 PM EDT documented in this encounter Progress Notes * Courtney Kennedy I, RD - 10/22/2022 2:30 PM EDT Images from the original note were not included. Nutrition Intervention for Weight Management Initial RD visit with ZENA Rocha 1985 Patient confirms visit conducted while patient was in the following state: [place] Weight Today: Wt Readings from Last 3 Encounters: 10/14/22 (!) 225 kg (496 lb) 08/25/22 (!) 219.6 kg (484 lb 3.2 oz) 11/14/19 (!) 217.7 kg (480 lb) BMI Readings from Last 3 Encounters: 10/14/22 68.67 kg/m?? 08/25/22 68.49 kg/m?? Interview: Pt is pursuing bariatric surgery att. Tracking his food this month and chosing less carbohydrate has resulted in healthy moderate weight loss. Weight Loss History: See previous notes from this senior grant writer and [facility] provider for full account Typical Dietary Intake: B: 3 scrambled eggs with almond milk and a little cheese and a SF yogurt L: salad with grilled chicken and pine nuts (less than 1/4 cup) and Ranch Dressing D: 2Turkey burger with cheese and mto on a plate or chicken, green veggies like broccoli, cottage cheese S: Typical Beverages: [] coffee (Cups per day: [] half and half (unflavored) [] flavored creamer (sugar) [] flavored creamer (sugar-free) [] added sugar - (total: [] added non-caloric sweetener [x] water - (total: at least 64 ounces or more [] plain [] crystal light or other sugar-free additive [x] Current food Tracking [] discussed potential benefit starting food tracking - see goals Patient Goals from Team: Goals ??? Follow your diet plan as advised by your medical chemist Nutrition Goals updated today: 09/24/22 TF 1. Practice eating and drinking by 30 minutes on either side 2. Track all food for the next 4 weeks in to My Fitness Pal - aim for 2,000 calories/day at most Bariatric eating behaviors introduced or reviewed: [x] [...] either side [x] Sip rather than gulp [] Reduce coffee intake down to ~1 cup (caffeine) prior to surgery [] Reduce alcohol, ideally avoid [] Currently smoking? [] Former smoker, quit date: (4 months nicotine-free prior to first surgery appointment) Activity: [x] reviewed current goals; treadmill every other day for 20 minutes; aslo planning to walk the dogmore [] updated goals Nutrition Goals updated today: 1. Try Bolthouse dressing to reduce calories and increase in place Ranch 2. Work towards reducing total calroeus gradually to aim for 6805-1396 kcals (aim to reduce each meal by 100 kcals) Monitor/Evaluate: [] Needs additional fuv scheduled with this senior grant writer: No follow-ups on file. (OR) [] Currently scheduled for: [] 1st consecutive monthly nutrition visit [] 2nd consecutive monthly nutrition visit [] 3rd consecutive monthly nutrition visit (OR) [x] Patient has met requirement of 3 consecutive monthly nutrition visits but agrees that ongoing support would be helpful and feasible. Above determined to the best ability of this senior grant writer. Patient will contact bariatric surgery team for any official determination about about scheduling and insurance requirements ( ) Thank you 30 minutes were spent in visit today, including contact with patient, chart review, and documentation documented in this encounter Plan of Treatment Upcoming Encounters Date Type Department Care Team (Late st Contact Info) Description 08/17/2024 11:00 AM EST [place] [address] Lamar Alonzo MD [facility] DR GREG[facility] [address] documented as of this encounter Goals Goal Patient Goal Type Associated Problems Recent Progress Patient-Stated? Author Follow your diet plan as advised by your medical chemist Diet No Courtney Kennedy RD Note: Images [...] reducing total calroeus gradually to aim for 9264-7724 kcals (aim to reduce each meal by [...] type documented in this encounter Care Teams Residential Finish Carpenter Relationship Specialty Start Date End Date Keena Rosales APRN [address] [place] [address] PCP - General Family Medicine 11/04/21 documented as of this encounter
--- OUTSIDE RECORDS SUMMARY | 2024-07-13 14:57 | XMS_ITS | Encounter Summary ---
Author Organization [facility] [place] [address] Care Team Providers Care Student Career Development Specialist Name Role Phone Pipo Frazier Primary Care Provider [phone] Encounter Details Date Type Department Care Team (Late st Contact Info) Description 11/13/2019 12:25 PM EDT Ancillary Procedure Radiology Library at [facility] [place] [address] Pipo Frazier PA [address] [place] [address] Social History Tobacco Use Types Packs/Day Years [...] AM EST Office [place] [address] Lamar Alonzo MD [facility] DR GREG[facility] [place] [address] documented as of this encounter Procedures Procedure Name Priority Date/Time Associated Diagnosis Comments FILM LIBRARY STORAGE ONLY ULTRASOUND STUDY Routine 11/13/2019 12:22 PM EDT documented in this encounter Results * Film Library- Storage Only Ultrasound Study (11/13/2019 12:22 PM EDT) Narrative SIVAKUMAR - 11/13/2019 12:22 PM EDT This exam is auto-finalizing. It's purpose is for storage only. Pipo BLANCHARD IMG FILM LIBRARY OR DERABLES [place], [place] documented in this encounter Visit Diagnoses Not on filedocumented in this encounter Care Teams Student Career Development Specialist Relationship Specialty Start Date End Date Pipo Frazier PA [address] [place] [address] PCP - General General Internal Medicine 11/28/1501/12 documented as of this encounter
--- OUTSIDE RECORDS SUMMARY | 2024-07-13 14:57 | XMS_ITS | Encounter Summary ---
Author Organization [facility] Address [facility] [place] [address] Care Team Providers Care Forest Pathology Professor Name Role Phone Pipo Frazier Primary Care Provider [phone] Encounter Details Date Type Department Care Team (Late st Contact Info) Description 03/03/2019 Interpretation Only Cardiology at [address] [id number] Sai Flores MD [facility] [place] [address] Anxiety Social History Tobacco Use Types Packs/Day [...] AM EST Office [place] [address] Lamar Alonzo MD [facility] [address] [place] [address] documented as of this encounter Visit Diagnoses Diagnosis Anxiety Anxiety state, unspecified documented in this encounter Care Teams Forest Pathology Professor Relationship Specialty Start Date End Date Pipo Frazier PA [address] [place] [address] PCP - General General Internal Medicine 11/28/1501/12 documented as of this encounter
--- OUTSIDE RECORDS SUMMARY | 2024-07-13 14:57 | XMS_ITS | Encounter Summary ---
Author Organization [facility] [place] [address] Care Team Providers Care Stabilizing Machine Operator Name Role Phone Pipo Frazier Primary Care Provider [phone] Encounter Details Date Type Department Care Team (Late st Contact Info) Description 11/13/2019 12:30 PM EDT Ancillary Procedure Radiology Library at [facility] [place] [address] Pipo Frazier PA [address] [place], [place] [address] Social History Tobacco Use Types Packs/Day Years [...] AM EST Office Visit [place] [address] Lamar Alonzo MD [facility] DR GREGORY [facility] [address] documented as of this encounter Procedures Procedure Name Priority Date/Time Associated Diagnosis Comments FILM LIBRARY STORAGE ONLY CT ABDOMEN AND PELVIS Routine 11/13/2019 12:23 PM EDT documented in this encounter Results * Film Library- Storage Only CT Abdomen & Pelvis (11/13/2019 12:23 PM EDT) Narrative RAD - 11/13/2019 12:23 PM EDT This exam is auto-finalizing. It's purpose is for storage only. Pipo BLANCHARD IMG FILM LIBRARY OR DERABLES [place], [place] documented in this encounter Visit Diagnoses Not on filedocumented in this encounter Care Teams Stabilizing Machine Operator Relationship Specialty Start Date End Date Pipo Frazier PA [address] [place] [address] PCP - General General Internal Medicine 11/28/1501/12 documented as of this encounter
--- OUTSIDE RECORDS SUMMARY | 2024-07-13 14:57 | XMS_ITS | Encounter Summary ---
Author Organization [facility] Address [facility] [place] [address] Care Team Providers Care Microbiology Laboratory Manager Name Role Phone Pipo Frazier Primary Care Provider [phone] Reason for Visit * Auth/Cert Specialty Diagnoses / Procedures Referred By Alma ortega Referred To Contact Diagnoses Cholecystitis Procedures EMERGENCY IPI Referral ID Status Reason Start Date Expiration Date Visits Re quested Visits Authorized [id number] 1 1 Encounter Details Date Type Department Care Team (Latest Contact Info) Description 11/13/2019 4:20 PM EDT - 11/14/2019 7:39 PM EDT Hospital Encounter [address] [place] [id number] Isabel Clark MD [facility] [place] [address] Thrombus Discharge Disposition: Home Social History Tobacco Use Types Packs/Day Years Used Date Smoking Tobacco: Never Assessed Sex and Gender Information Value Date Recorded Sex Assigned at Not on file Gender Identity Not on file Sexual Orientation Not on file documented as of this encounter Last Filed Vital Signs Vital Sign Reading Time Taken Comments Blood Pressure 129/79 11/14/2019 4:28 PM EDT Pulse 95 11/14/2019 4:28 PM EDT Temperature 36.8 ??C (98.2 ??F) 11/14/2019 4:28 PM ED T Respiratory Rate 18 11/14/2019 4:28 PM EDT Oxygen Saturation 93% 11/14/2019 4:28 PM EDT Inhaled Oxygen Concentration - - [...] with acute cholecystitis. ?? He arrived to [facility] [place] a direct admit to the [facility] [...] and given to the patient. Patient Instructions [facility] Department of Acute Care Surgery Discharge Instructions [...] day, it is best to call the 4L General Surgery Clinic to speak with the Surgery nurses. The number is [phone]. - During the night or weekends call the [facility] data conversion operator at [phone] and ask to speak to the surgery resident roll on worker for general surgery. Please note: Your surgeon may not be Oxidized Finish Plater, especially during the night or on weekends, so be ready to describe yourself and your surgery when you call. Follow up appointments: [x] A request for a follow-up appointment has been made and you should receive information via phone/mail in the next week. If you do not hear anything, please call the clinic at [phone] to confirm or reschedule. If you need a prior authorization, please call the General Surgery Clinic nurses [phone] for prior authorizations assistance Your care was managed by the Trauma and Acute Care Surgery Team at [facility]. If you have any questions or concerns, please feel free to contact us. Provider Contact Information: General Surgery Clinic: Nurses line for questions: [facility] (after business hours): CC: LO Francis Moni Montoyazhang Mejia APRN Signed: Denys Patel MD Department of Surgery 11/14/2019 Acute Care Surgery Pager [phone] I saw and evaluated the patient with [...] Patel MD - 11/14/2019 12:03 PM EDT [facility] Department of Acute Care Surgery Discharge Instructions [...] with the Surgery nurses. The number is [phone]. - During the night or weekends call the [facility] data conversion operator at [phone] and ask to speak to the surgery resident roll on worker for general surgery. Please note: Your surgeon may not be Oxidized Finish Plater, especially during the night or on weekends, so be ready to describe yourself and your surgery when you call. Follow up appointments: [x] A request for a follow-up appointment has been made and you should receive information via phone/mail in the next week. If you do not hear anything, please call the clinic at [phone] to confirm or reschedule. If you need a prior authorization, please call the General Surgery Clinic nurses [phone] for prior authorizations assistance documented in this [...] INFORMATION: 11/14/2019 Procedure(s): LAPAROSCOPIC CHOLECYSTECTOMY WITH CHOLANGIOGRAM ([facility]VU 11.47) FOLLOW-UP NEEDED: Does pt need to f-u with surgeon or SKIDDER DRIVER (please indicate reason if attending provider): SKIDDER DRIVER What follow-up with TACS team is needed [...] Consent signed N/A If yes, give to [place] for scanning OPIOID CONSENT/NARCOTIC AGREEMENTS Current Month Narcotic Consent? N/A If yes, give to Broiler Supervisor for scanning D/c to: Home If Rehab [...] Patient arrived as a direct admit from [facility] at 16:30. Attached to masimo. BP [...] AND PHYSICAL Patient Name: René Wayne MR#: [id number] : [id number] CC: 34 y.o. Male p/w acute cholecystitis [...] consistent with acute cholecystitis. He arrives to [facility] a direct admit [facility]. He denies fever, sick contacts, recent [...] his father's side who have had an VA in their 30s. 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 Given his subjective symptoms including worseningpain with [...] Adamson MD 11/13/2019 Acute Care Surgery Pager [phone] Attending Addendum I have seen and examined [...] Miscellaneous Notes * Plan of Care - Taniya Rolle RN - 11/14/2019 6:42 PM EDT Patient discharged to home with no services. IV removed, site benign. Pt. Denies chest pain and shortness of breath. Discussed pain management with patient, pain tolerable. Patient medicated prior todischarge. Patient has all belongings and supplies needed. Discharge instructions and prescriptionswere given and reviewed. Requested change of pharmacy to [facility]. All questions answered.Patient verbalizes understanding. [...] Clark MD - 11/14/2019 1:57 PM EDT [facility] Operative Note Patient Name: René Wayne DOB: [id number] MR#: [id number] Case Date: 11/14/2019 Surgeon: Surgeon(s) and Role: * Isabel Clark MD - Primary * Underbakke, Sai L, MD - Resident Preoperative diagnosis: cholecystitis Postoperative diagnosis: Cholecystitis Procedure(s) (LRB): LAPAROSCOPIC CHOLECYSTECTOM[facility]ANGIOGRAM [facility] (N/A) Anesthesia: General ?? Findings: [...] Operative Note Patient Name: René Wayne : [id number] MR#: [id number] Case Date: 11/14/2019 Surgeon: Surgeon(s) and Role: * Isabel Clark MD - Primary * Sai Allen MD - Resident Preoperative diagnosis: cholecystitis Postoperative diagnosis: * No post-op diagnosis entered * Procedure(s) (LRB): LAPAROSCOPIC CHOLECYSTECTOMY WITH CHOLANGIOGRAM ([facility]) (N/A) Anesthesia: General Findings: 1. [...] AM EST Office [place] [address] Lamar Alonzo MD [facility] [place] [address] Pending Results Name Type Priority Associated Diagnoses [...] AM EDT HC MYCOBACTERIA CULTURE Routine 11/14/19 11:40 AM EDT BODY FLUID CULTURE, AEROBIC Routine 11/14/2019 11:40 AM EDT HC FUNGUS CULTURE, MISC SOURCE Routine 11/14/2019 11:40 AM EDT Lap, Cholecystectomy/Graph ([id number]) 11/14/2019 10:26 AM EDT cholecystitis HEMOGRAM Routine [...] 9 PM EDT 11/14/2019 12:59 PM EDT [facility] LABORATORY - 11/14/2019 12:59 PM EDT Specimen requisition ordered. ??Separate Pathology report to follow Isabel Clark MD PATHOLOGY/CYTOLOGY O RDERABLES [facility] [place] [address] * Surgical Pathology Report (11/14/2019 12:53 PM EDT) Final Diagnosis [id number] ? Location: 4WST; [facility]; A The signing pathologist has (i) examined the relevant preparation(s) for the specimen(s) and (ii) rendered or confirmed the diagnosis(es). . ?Surgical Pathology DIAGNOSIS Gallbladder and contents: - ??Acute and chronic cholecystitis. - Cholelithiasis. Electronically signed by: ??Cassius Rahman MD Verified: ??11/16/2019 ?Pathologist Performed at: ??-[facility] Dept. of Pathology, [place], [place] SPECIMEN(S) SUBMITTED A - GALLBLADDER AND [...] hepatic margin is inked black Sections/Processi ng: Cage Manager sections in 2 cassettes as follows: ?A1: ??Cystic duct margin and b2b sales representative section ?A2: ??Additional b2b sales representative ??kristyn 11/16/2019 12:47 PM EDT [facility] GALLBLADDER STRUCTURE / Unknown 11/14/2019 12:53 PM EDT 11/14/2019 12:53 PM EDT Isabel Clark MD PATHOLOGY/CYTOLOGY O RDERABLES Performing Organization Address [facility]/ZIP Co de Phone Number [facility] [place] [address] * Anaerobic Culture (11/14/2019 11:40 AM EDT) Anaerobic Culture No anaerobic organisms isolated [facility] Bile specimen (specimen) 11/14/2019 11:40 AM EDT 11/14/2019 12:32 PM EDT Comment:GALLBLADDER CONTENTS FOR CULTURE - AEROBIC, ANAROBIC, FUNGAL AND AFB Narrative Resulting Agency Comment Spec In Lab Isabel Clark MD MICROBIOLOGY - GENER AL ORDERABLES Performing Organization Address [facility] Co de Phone Number [facility] [place] [address] * Body Fluid Culture, Aerobic (11/14/2019 11:40 AM EDT) Body Fluid Culture No growth [facility] Gram Stain Cytocentrifuge Gram Stain performed No Neutrophils seen. No microorganisms seen. [facility] Bile specimen (specimen) 11/14/2019 11:40 AM EDT 11/14/2019 12:32 PM EDT Comment:GALLBLADDER CONTENTS FOR CULTURE - AEROBIC, ANAROBIC, FUNGAL AND AFB Narrative Resulting Agency Comment Spec In Lab Isabel Clark MD MICROBIOLOGY - GENER AL ORDERABLES Performing Organization Address [facility] Co de Phone Number [facility] [place] [address] * Fungus culture Gallbladder (11/14/2019 11:40 AM EDT) Fungus Culture No Fungus isolated [facility] Specimen from gallbladder (specimen) 11/14/2019 11:40 AM EDT 11/14/2019 12:32 PM EDT Comment:GALLBLADDER CONTENTS FOR CULTURE - AEROBIC, ANAROBIC, FUNGAL AND AFB Narrative Resulting Agency Comment Spec In Lab Isabel Clark MD MICROBIOLOGY - GENER AL ORDERABLES Performing Organization Address City/[facility]/ZIP Co de Phone Number [facility] [place] [address] * AFB culture Gallbladder (11/14/2019 11:40 AM EDT) Acid Fast Bacilli Culture No Acid Fast Bacilli isolated [facility] Acid Fast Stain No Acid Fast Bacilli seen [facility] Specimen from gallbladder (specimen) 11/14/2019 11:40 AM EDT 11/14/2019 12:32 PM EDT Comment:GALLBLADDER CONTENTS FOR CULTURE - AEROBIC, ANAROBIC, FUNGAL AND AFB Narrative Resulting Agency Comment Spec In Lab Isabel Clark MD MICROBIOLOGY - GENER AL ORDERABLES Performing Organization Address [facility] Co de Phone Number [facility] [place] [address] * (ABNORMAL) Differential, Automated (11/14/2019 4:06 AM EDT) Pathologist [facility] Neutrophil % 71.8 % [facility] Neutrophil Absolute 7.47(H) 1.70 - 6.10 x10(3)/mc L [facility] Lymph % 17.7 % [facility] Lymphocytes Abs 1.8 0.9 - 3.2 x10(3)/mc L [facility] Monocyte % 7.8 % [facility] Monocyte Abs 0.8 0.3 - 0.9 x10(3)/mc L [facility] Eos % 1.5 % [facility] Eosinophils Abs 0.2 0.0 - 0.4 x10(3)/mc L [facility] Basophil % 0.5 % [facility] Baso Absolute 0.0 0.0 - 0.1 x10(3)/mc L [facility] Immature Gran % 0.70 % [facility] Comment: Immature granulocytes(IG's)percentage and absolute count will include metamyelocytes, myelocytes, and promyelocytes. Blood smears from CBCs yielding IG's will be scanned manually for concordance. If this scan disagrees with the automated IG or if promyelocytes are noted, a manual differential will be performed. Immature Gran Absolute 0.07(H) 0.00 - 0.04 x10(3)/ L [facility] Blood specimen (specimen) 11/14/2019 4:06 AM EDT 11/14/2019 4:42 AM EDT Narrative Resulting Agency Comment Spec In Lab Skyler Adamson MD HEMATOLOGY ORD ERABLES [facility] [place] [address] * (ABNORMAL) Hemogram (11/14/2019 4:06 AM EDT) White Blood Cell 10.4(H) 4.0 - 9.5 x10(3)/ L [facility] Red Blood Cell 5.17 4.58 - 5.54 x10(6)/ L [facility] Hemoglobin 13.9 13.7 - 16.5 gm/dL [facility] Hematocrit 44.4 40.5 - 48.5 % [facility] Mean Cell Volume 85.9 82.9 - 93.1 fL [facility] Mean Cell Hemoglobin 26.9(L) 27.5 - 32.1 pg [facility] Mean Cell Hemoglobin Concentration 31.3(L) 32.0 - 35.7 gm/dL [facility] Platelet 292 145 - 357 x10(3)/ L [facility] RDW Standard Deviation 46.4(H) 36.0 - 45.0 fL [facility] RDW coefficient of variation 14.8(H) 11.4 - 13.8 % [facility] Mean Platelet Volume 8.9 7.6 - 12.9 fL [facility] NRBC% auto 0.0 % [facility] NRBC Absolute 0.000 0.000 - 0.000 x10(3)/mc L [facility] Blood specimen (specimen) 11/14/2019 4:06 AM EDT 11/14/2019 4:42 AM EDT Narrative Resulting Agency Comment Spec In Lab Skyler Adamson MD HEMATOLOGY ORD ERABLES [facility] [place] [address] * Phosphorus (11/14/2019 4:06 AM EDT) Phosphorus 3.7 2.5 - 4.5 mg/dL [facility] Blood specimen (specimen) 11/14/2019 4:06 AM EDT 11/14/2019 4:42 AM EDT Narrative Resulting Agency Comment Spec In Lab Isabel Clark MD CHEMISTRY ORDERABLES Performing Organization Address [facility] Co de Phone Number [facility] [place] [address] * Magnesium (11/14/2019 4:06 AM EDT) Magnesium 0.94 0.69 - 1.07 mmol/L [facility] Blood specimen (specimen) 11/14/2019 4:06 AM EDT 11/14/2019 4:42 AM EDT Narrative Resulting Agency Comment Spec In Lab Isabel Clark MD CHEMISTRY ORDERABLES Performing Organization Address [facility] Co de Phone Number [facility] [place] [address] * (ABNORMAL) Basic Metabolic Panel (non-fasting) (11/14/2019 4:06 AM EDT) Glucose 115 65 - 199 mg/dL [facility] Comment:Diabetes: >=200 mg/d L plus symptoms Blood Urea Nitrogen 10 10 - 20 mg/dL [facility] Creatinine 0.71(L) 0.80 - 1.50 mg/dL [facility] Sodium 140 135 - 145 mmol/L [facility] Potassium 3.9 3.5 - 5.0 mmol/L [facility] Comment: Please note: ??Patients with WBC >100,000 may have falsely elevated Potassium levels. ??For accurate Potassium quantification in these patients send serum separator tube (gold top) for subsequent determinations. ??Contact the Clinical Chemistry Laboratory if there are any questions. Chloride 102 98 - 107 mmol/L [facility] Carbon Dioxide 26 22 - 31 mmol/L [facility] Anion Gap 12 5 - 15 mmol/L [facility] Calcium 9.3 8.5 - 10.5 mg/dL [facility] Est Glomerular Filtration Rate 123 >=60 mL/min/1. 73 m?? [facility] Comment: The eGFR was calculated using the CKD-EPI equation. As with all creatinine based estimates of kidney function, eGFR values calculated with the CKD-EPI equation are not accurate in patients with acute kidney failure, extremes of body mass or the acutely ill. http://Zoomph/[email or web address] eGFR 143 >=60 mL/min/1. 73 m?? [facility] Comment: The eGFR was calculated using the CKD-EPI equation. As with all creatinine based estimates of kidney function, eGFR values calculated with the CKD-EPI equation are not accurate in patients with acute kidney failure, extremes of body mass or the acutely ill. [email or web address]/DHMCnkf Blood specimen (specimen) 11/14/2019 4:06 AM EDT 11/14/2019 4:42 AM EDT Narrative Resulting Agency Comment Spec In Lab Isabel Clark MD CHEMISTRY ORDERABLES [facility] [place] [address] * Hepatic Function Panel (11/14/2019 4:06 AM EDT) [facility] Protein, Total 6.7 6.1 - 8.0 gm/dL [facility] Albumin 3.8 3.2 - 5.2 gm/dL [facility] Aspartate Aminotransferase 23 0 - 39 unit/L [facility] Alanine Aminotransferase 54 0 - 55 unit/L [facility] Alkaline Phosphatase 67 40 - 130 unit/L [facility] Bilirubin, Total 0.7 0.2 - 1.3 mg/dL [facility] Bilirubin, Direct 0.1 0.0 - 0.3 mg/dL [facility] Blood specimen (specimen) 11/14/2019 4:06 AM EDT 11/14/2019 4:42 AM EDT Narrative Resulting Agency Comment Spec In Lab Isabel Clark MD CHEMISTRY ORDERABLES [facility] [place] [address] * ABORH Recheck Status (11/13/2019 7:55 PM EDT) [facility] ABORH Recheck Order Order Placed [facility] ABORH Type Recheck Complete [facility] Blood specimen (specimen) 11/13/2019 7:55 PM EDT 11/13/2019 8:23 PM EDT Narrative Resulting Agency Comment Spec In Lab Melvin Fraser MD BLOOD BANK LAB ORDER CARON [facility] [place] [address] * Antibody screen (11/13/2019 7:55 PM EDT) [facility] Ab Screen Interp Negative [facility] Expires at [id number] on: 11/16/2019 [facility] Blood specimen (specimen) 11/13/2019 7:55 PM EDT 11/13/2019 8:23 PM EDT Narrative Resulting Agency Comment Spec In Lab Melvin Fraser MD BLOOD BANK LAB ORDER CARON Performing Organization Address City/[facility]/ZIP Co de Phone Number [facility] [place] [address] * ABO/Rh Typing (11/13/2019 7:55 PM EDT) Pathologist [facility] ABORH Type A Neg [facility] Blood specimen (specimen) 11/13/2019 7:55 PM EDT 11/13/2019 8:23 PM EDT Narrative Resulting Agency Comment Spec In Lab Melvin Fraser MD BLOOD BANK LAB ORDER CARON Performing Organization Address [facility] Co de Phone Number [facility] [place] [address] documented in this encounter Visit Diagnoses Diagnosis Thrombus Embolism and thrombosis of unspecified site Acute cholecystitis documented in this encounter Admitting Diagnoses Diagnosis Acute [...] Given 11/13/2019 9:18 PM EDT 650 mg heparin (Porcine) subcutaneous injection 5,000 Units 5,000 Units, Subcutaneous, EVERY 8 HOURS SCHEDULED, First dose on Tue11/13/19 at 2200, Until Discontinued, Routine Given 11/14/2019 6:21 AM EDT 5,000 Unit s Given 11/13/2019 9:40 PM EDT 5,000 Units hydrALAZINE (APRESOLINE) injection 5 mg 5 mg, Intravenous, EVERY 6 HOURS PRN, Starting on Tue11/13/19 at 1850, Until Tue11/14/19 at 2139, High Blood Pressure, for SBP>170 unrelieved by labetalol ibuprofen (Advil;Motrin) tablet 600 mg 600 mg, Oral, EVERY 6 HOURS PRN, Starting on Tue11/14/19 at 1758, Until Tue11/14/19 at 2138, Pain, Administer orally with milk or food to minimize GI irritation. Maximum dose of 3200 mg from all sources in 24 hours, Routine Given 11/14/2019 6:17 PM EDT 600 mg labetalol (NORMODYNE,TRANDATE) injection 10 mg 10 mg, [...] on Tue11/13/19 at 1846, Until Tue11/14/19 at 2138, for discomfort with PIV insertion, Routine LORazepam [...] on Tue11/13/19 at 1854, Until Tue11/14/19 at 2138, insomnia, Routine oxyCODONE (Roxicodone) tablet 5 mg [...] Balderas RN) 0259 (Given - Provider: Jaja Mckeon RN)0900 (Not Given - Provider: Taniya Rolle RN - Reason: Patient/family refused)1028 (SEP Hold - Provider: Admin Adt - Reason: Transfer to a Procedural area)1415 (MAR Unhold - Provider: Zulma Gill, MAXIMUS)1420 (Given - Provider: Zulma Gill, MAXIMUS) heparin (Porcine) subcutaneous injection 5,000 Units 5,000 Units, Subcutaneous, EVERY 8 HOURS SCHEDULED, First dose on Tue11/13/19 at 2200, Until Discontinued, Routine 2140 (Given - Provider: Sherry Balderas RN) 0621 (Given - Provider: Jaja Mckeon, MAXIMUS)1028 (SEP Hold - Provider: Admin Adt - Reason: Transfer to a Procedural area)1400 (Not Given - Provider: Taniya Rolle, RN - Reason: Transfer to a Procedural area)1605 (SEP Unhold - Provider: Admin Adt) LORazepam (Ativan) tablet 0.5 mg (COMPLETED) 0.5 mg, Oral, ONCE, 1 dose, On Tue11/13/19 at 1900, Routine 2117 (Given - Provider: Sherry Balderas, MAXIMUS) LORazepam (Ativan) tablet 0.5 mg 0.5 mg, [...] ringers., Indication for (Active or Suspected): GI/Intra-abdominal 2123 (New Bag - Provider: Sherry Balderas, MAXIMUS) 0124 (Stopped - Provider: Jaja Mckeon, MAXIMUS)0401 (New Bag - Provider: Jaja Mckeon RN)0801 (Stopped - Provider: Taniya Rolle, MXAIMUS)1028 (SEP Hold - Provider: Admin Adt - Reason: Transfer to a Procedural area)1050 (Bolus - Provider: Ilan Jimenez CRNA)1200 (Automatically Held - Provider: Admin Adt)1605 ([facility] Unhold - Provider: Admin Adt) sodium chloride 0.9 % (flush) flush 5 mL 5 mL, Intravenous, 2 TIMES DAILY, First dose on Tue11/13/19 at 2100, Until Discontinued, Routine 2130 (Given - Provider: Sherry Balderas RN) 0900 (Not Given - Provider: Taniya Rolle, RN - Reason: See comment - Comment: infusing)1028 ([facility] Hold - Provider: Admin Adt - Reason: Transfer to a Procedural area)1605 ([facility] Unhold - Provider: Admin Adt) venlafaxine XR (Effexor-XR) capsule 225 mg 225 mg, Oral, DAILY WITH BREAKFAST, First dose on Tue11/14/19 at 0800, Until Discontinued, DO NOT CRUSH OR OPEN, Routine 0744 (Given - Provid er: Taniya Rolle, RN)1028 ([facility] Hold - Provider: Admin Adt - Reason: Transfer to a Procedural area)1605 ([facility] Unhold - Provider: Admin Adt) Continuous Medication Order 11/12/2019 11/13/2019 11/14/2019 lactated ringers infusion (CANCELED) 100 mL/hr, Intravenous, CONTINUOUS, Starting on Tue11/13/19 at 1900, Until Tue11/14/19 at 1606 2130 (New Bag - Provider: Sherry Balderas RN) 0752 (New Bag - Provider: Taniya Rolle, MAXIMUS)1028 ([facility] Hold - Provider: Admin Adt - Reason: Transfer to a Procedural area)1605 ([facility] Unhold - Provider: Admin Adt) PRN Medication Order 11/12/2019 11/13/2019 11/14/2019 BUpivacaine (PF) (MARCAINE) 0.25 % (2.5 mg/mL) injection (CANCELED) ONCE PRN, Starting on Tue11/14/19 at 1355, Until Tue11/14/19 at 2139, Intra-Operative (Intra-Procedure), Routine 1355 (Given - Provid er: Sai Allen) BUpivacaine (PF) (MARCAINE) 0.5 % (5 mg/mL) injection (CANCELED) ONCE PRN, Starting on Tue11/14/19 at 1107, Until Tue11/14/19 at 2139, Intra-Operative (Intra-Procedure), Routine 1107 (Given - Provid er: Sai Allen) hydrALAZINE (APRESOLINE) injection 5 mg 5 mg, Intravenous, EVERY 6 HOURS PRN, Starting on Tue11/13/19 at 1850, Until Tue11/14/19 at 213, High Blood Pressure, for SBP>170 unrelieved by labetalol 1028 ([facility] Hold - Pro vider: Admin Adt - Reason: Transfer to a Procedural area)1605 ([facility] Unhold - Provider: Admin Adt) ibuprofen (Advil;Motrin) tablet 600 mg 600 mg, Oral, EVERY 6 HOURS PRN, Starting on Tue11/14/19 at 1758, Until Tue11/14/19 at 2138, Pain, Administer orally with milk or food to minimize GI irritation. Maximum dose of 3200 mg from all sources in 24 hours, Routine 181 (Given - Provid er: Taniya Rolle RN) iohexoL (OMNIPAQUE) 300 mg/mL solution (CANCELED) ONCE PRN, Starting on Tue11/14/19 at 1241, Until Tue11/14/19 at 2138, Intra-Operative (Intra-Procedure), Routine 1241 (Given - Provid er: Sai Allen) labetalol (NORMODYNE,TRANDATE) injection 10 mg 10 mg, Intravenous, EVERY 2 HOURS PRN, Starting on Tue11/13/19 at 1849, Until Tue11/14/19 at 2138, High Blood Pressure, For SBP>170, Routine 1028 ([facility] Hold - Pro vider: Admin Adt - Reason: Transfer to a Procedural area)1605 ([facility] Unhold - Provider: Admin Adt) lidocaine (XYLOCAINE) 10 mg/mL (1 %) injection 3 mg 3 mg (0.3 mL), Subcutaneous, ONCE PRN, 1 dose, Starting on Tue11/13/19 at 1846, Until Tue11/14/19 at 213, for discomfort with PIV insertion, Routine 1028 ([facility] Hold - Pro vider: Admin Adt - Reason: Transfer to a Procedural area)1605 ([facility] Unhold - Provider: Admin Adt) melatonin tablet 3 mg 3 mg, Oral, NIGHTLY PRN, Starting on Tue11/13/19 at 1854, Until Tue11/14/19 at 2139, insomnia, Routine 1028 ([facility] Hold - Pro vider: Admin Adt - Reason: Transfer to a Procedural area)1605 ([facility] Unhold - Provider: Admin Adt) ondansetron (ZOFRAN) injection 4 mg 4 mg, Intravenous, EVERY 8 HOURS PRN, Starting on 11/13/19 at 1841, Until 11/14/19 at 2139, Nausea 1028 ([facility] Hold - Pro vider: Admin Adt - Reason: Transfer to a Procedural area)1605 ([facility] Unhold - Provider: Admin Adt) oxyCODONE (Roxicodone) tablet 5 mg (CANCELED) 5 mg, Oral, EVERY 4 HOURS PRN, Starting on 11/13/19 at 1841, Until 11/14/19 at 1758, Pain, Routine 1028 ([facility] Hold - Pro vider: Admin Adt - Reason: Transfer to a Procedural area)1415 ([facility] Unhold - Provider: Zulma iGll, RN)1534 (Given - Provider: Zulma Gill, RN) sodium chloride 0.9 % (flush) flush 5-20 mL 5-20 mL, Intravenous, EVERY 1 MIN PRN, Starting on 11/13/19 at 1846, Until Tue11/14/19 at 2139, flush, Flush pertains to all indwelling lines. Flush per protocol found in the job aid using the link provided on this medication record., Routine 1028 ([facility] Hold - Pro vider: Admin Adt - Reason: Transfer to a Procedural area)1605 ([facility] Unhold - Provider: Admin Adt) documented in this encounter Care Teams Microbiology Laboratory Manager Relationship Specialty Start Date End Date Pipo Frazier PA [address] [place] [address] PCP - General General Internal Medicine 11/28/1501/12 documented as of this encounter
[2024-07-13 21:35] LABS: Bilirubin Negative (Negative); Blood Negative (Negative); Clarity Clear (Clear); Glucose Negative (Negative); Ketones Negative (Negative); Leukocyte Esterase Negative (Negative); Nitrite Negative (Negative); Specific Gravity 1.025 (1.005-1.025); Urobilinogen 0.2 mg/dL (Up to 0.2); pH 6.5 (5-8)
[2024-07-13 21:52] LABS: COMMENT (LAB VIEW ONLY) 146.92 mg/dL; Microalb ug/mg Crea 3.5 ug/mg Cr
== END 2024-07-13 14:48 | disposition home or self-care (01) ==
LOC: NCHCN 14:47
PROVIDERS: PCP Nurse Practitioner Family; Visit Provider Nurse Practitioner Family
DX: I10 Essential (primary) hypertension (principal)
CPT/HCPCS: 81003; 82043; 82570

== ENCOUNTER 2024-10-09 11:59 | Outpatient (REF) | payer MEDICAID, SELFPAY ==
[2024-10-09 16:49] LABS: TSH 1.48 uIU/mL (0.36-3.74)
[2024-10-09 22:47] LABS: Estradiol 31 pg/mL (<40); FSH 24.1 mIU/mL (1.4-18.1); LH 11.3 mIU/mL (1.5-9.3)
[2024-10-16 13:40] LABS: Testosterone, Free 7.31 ng/dL (4.65-18.1); Testosterone, Total 340 ng/dL (240-950)
== END 2024-10-09 12:00 | disposition home or self-care (01) ==
LOC: NCHCN 11:59
PROVIDERS: PCP Nurse Practitioner Family; Visit Provider Nurse Practitioner Family
DX: N46.11 Organic oligospermia (principal)
CPT/HCPCS: 84402; 84403; 82670; 83001; 83002; 84146; 84443